=== PATIENT | male | born 1975 | race Two or more races ===

== ENCOUNTER 2024-08-31 15:47 | Emergency (ER) | payer MEDICAID, SELFPAY ==
[2024-08-31 16:21] VITALS: BP 158/91; PULSE 100; RESP 16; TEMP 37.1; O2SAT 97; BMI 30.2
--- NOTE | 2024-08-31 16:42 | PD.EDURI ---
Upper Respiratory Inf. RME/HPI General Chief Complaint: Flu Like Symptoms Stated Complaint: cough, runnynose, congestion x 2 days Time Seen by Provider: 08/31/24 15:52 Arrival date/time: 08/31/24 15:47 RME / HPI RME / HPI Narrative: 49-year-old male patient with significant history of hypertension, came in for evaluation regarding flulike symptoms since yesterday described as nasal congestion, sore throat, nausea, body aches joint pains headache fever cough severity moderate. Patient told me that he has been exposed to a lot of open customers who are coughing in front of him. Related Data Home Medications ?Medication ?Instructions ?Recorded ?Confirmed amlodipine 10 mg tablet 10 mg PO QDAY 07/08/21 11/17/21 Previous Rx's ?Medication ?Instructions ?Recorded hydrochlorothiazide 25 mg tablet 25 mg PO QAM #30 tabs 09/15/21 lisinopril 20 mg tablet 20 mg PO QDAY #30 tabs 09/15/21 potassium chloride 8 mEq 8 meq PO QDAY #30 caps 10/18/21 capsule,extended release ibuprofen 800 mg tablet 800 mg PO TID PRN pain #30 tabs 12/17/21 nirmatrelvir 300 mg (150 mg See Rx Instructions PO .COMPLEX 12/17/21 x2)-ritonavir 100 mg tablet,dose #30 tabs pack (Paxlovid) hydrocodone 5 mg-acetaminophen 325 1 tab PO Q6H PRN pain #15 tabs 08/06/23 mg tablet ibuprofen 600 mg tablet 600 mg PO Q6H PRN pain #30 tabs 08/06/23 acetaminophen 500 mg tablet 1,000 mg (2 x 500 mg) PO Q6H PRN 03/30/24 (Tylenol Extra Strength) pain #30 tabs ibuprofen 600 mg tablet 600 mg PO Q6H PRN pain #30 tabs 03/30/24 lidocaine 5 % topical patch 1 patch topical QDAY PRN pain #15 03/30/24 ea methocarbamol 500 mg tablet 1,000 mg (2 x 500 mg) PO Q8H PRN 03/30/24 muscle pain #30 tabs ibuprofen 800 mg tablet 800 mg PO Q8H PRN pain #30 tabs 08/31/24 ondansetron HCl 4 mg tablet 4 mg PO Q8H PRN nausea and 08/31/24 vomiting 5 days #20 tabs oseltamivir 75 mg capsule (Tamiflu) 75 mg PO BID 5 days #10 caps 08/31/24 Allergies Allergy/AdvReac Type Severity Reaction Status Date / Time No Known Allergies Allergy Verified 08/31/24 15:49 Review of Systems Review of Systems Narrative Review of Systems: Review of system reviewed and within normal limits except mentioned in HPI ED Exam Narrative Physical exam: VITAL SIGNS: Reviewed. GENERAL APPEARANCE: Alert and interactive, follows commands, no acute distress, HEAD AND FACE: Non-traumatic. ENT: PERRL, pink conjunctivitis, eyelid no trauma, Mucous membrane moist. NECK: Supple, nontender, no nuchal rigidity. CHEST: No tenderness, no crepitus, no paradoxical movement, no retractions. LUNGS: Clear, well ventilated, symmetric, no rales, no wheezing, no ronchi, no stridor, good breath sounds bilaterally. HEART: Regular rate, regular rhythm, no murmur, no gallops. ABDOMEN: Soft, positive bowel sounds, nondistended, no guarding, nontender, no rebound, no masses, RECTAL: Deferred. GENITAL: Deferred. NEUROLOGICAL: Gross motor function intact sensory function intact, Appropriate for age. MUSCULOSKELETAL: low back nontender, full range of motion. EXTREMITIES: Nontender, full range of motion. SKIN: Color pink, dry, no rash, no lacerations, no abrasions, no contusions. LYMPHATICS: Deferred. Course Quality Measures none Orders Category Date Time Status DiphenhydrAMINE [Benadryl] Med 08/31/24 16:41 Once 50 mg PO X1 ONE Ibuprofen Tab [Motrin Tab] Med 08/31/24 16:41 Once 800 mg PO X1 ONE Ondansetron Odt [Zofran Odt] Med 08/31/24 16:41 Once 4 mg PO X1 ONE Oseltamivir [Tamiflu] Med 08/31/24 16:41 Once 75 mg PO X1 ONE Vital Signs Vital signs: Vital Signs Temperature 98.8 F 08/31/24 16:21 Pulse Rate 100 08/31/24 16:21 Respiratory Rate 16 08/31/24 16:21 Blood Pressure 158/91 H 08/31/24 16:21 Pulse Oximetry (%) 97 08/31/24 16:21 Oxygen Delivery Method Room Air 08/31/24 16:21 Upper Respiratory Infection MDM Narrative MDM Narrative:: 49-year-old male patient with significant history of hypertension, came in for evaluation regarding flulike symptoms since yesterday described as nasal congestion, sore throat, nausea, body aches joint pains headache fever cough severity moderate. Patient told me that he has been exposed to a lot of open customers who are coughing in front of him. patient was tested positive for flu. Further imaging or test is not needed at this time. Patient was given Tamiflu, Zofran and Motrin and Benadryl Patient appears nontoxic and hemodynamically stable. Patient discharged home and instructed to follow-up with primary care provider in 24 to 48 hours. Instructed to return to the emergency department immediately if worsening of symptoms Patient data External records reviewed:: None Clinical information provided by:: patient Social determinants that could affect healthcare access:: none Patient has the following chronic illnesses:: Hypertension How is presenting disease/condition affected by chronic disease/condition?: uneffected by Evaluation data The following diagnostics were reviewed and interpreted by me:: other (specify) Lab and/or radiology exams considered but not ordered:: None Interpretation Summary: Positive for fever Medications / Prescriptions Medications or Prescriptions considered but not ordered:: None Medication administrations:: Tamiflu Motrin Zofran and Benadryl Consultations Consultation(s) initiated? (list below): No Diagnosis Upper Respiratory Differential Diagnosis: upper respiratory infection, viral infection and influenza Most likely diagnosis given after review of the tests above:: Influenza Admission Indicated Admission indicated?: not indicated Explain why admission is indicated or not indicated:: Stable Admission Request Was there a request for admission?: No Disposition Plan Disposition Plan: Discharge Discharge Attestation Discharge Attestation: The patient was given an opportunity to ask questions and understood the discharge instructions. Discharge instructions specifically effects, indications for sooner follow up or return to the emergency department, and the expected course of current diagnosis. Patient condition: Stable Discharge Plan Plan Patient Disposition: HOME (Self Care) Disposition Comment: Stable Prescriptions/Referrals Prescriptions/Med Rec: New oseltamivir [Tamiflu] 75 mg capsule 75 mg PO BID 5 Days Qty: 10 0RF ibuprofen 800 mg tablet 800 mg PO Q8H PRN (Reason: pain) Qty: 30 0RF ondansetron HCl 4 mg tablet 4 mg PO Q8H PRN (Reason: nausea and vomiting) 5 Days Qty: 20 0RF No Action hydrochlorothiazide 25 mg tablet 25 mg PO QAM Qty: 30 1RF lisinopril 20 mg tablet 20 mg PO QDAY Qty: 30 1RF Paxlovid 150 mg x 2- 100 mg tablet See Rx Instructions .ROUTE .COMPLEX Qty: 30 0RF Rx Instructions: take TWO 150 mg tablets of nirmatrelvir with ONE 100 mg tablet of ritonavir twice daily for 5 days amlodipine 10 mg tablet 10 mg PO QDAY Patient Comments: has not taken for 1 year potassium chloride 8 mEq capsule, extended release 8 meq PO QDAY Qty: 30 0RF ibuprofen 800 mg tablet 800 mg PO TID PRN (Reason: pain) Qty: 30 0RF ibuprofen 600 mg tablet 600 mg PO Q6H PRN (Reason: pain) Qty: 30 0RF hydrocodone-acetaminophen 5-325 mg tablet 1 tab PO Q6H MDD 9 PRN (Reason: pain) Qty: 15 0RF ibuprofen 600 mg tablet 600 mg PO Q6H PRN (Reason: pain) Qty: 30 0RF acetaminophen [Tylenol Extra Strength] 500 mg tablet 1,000 mg PO Q6H PRN (Reason: pain) Qty: 30 0RF lidocaine 5 % adhesive patch,medicated 1 patch topical QDAY PRN (Reason: pain) Qty: 15 0RF Rx Instructions: leave on most painful area for up to 12 hrs methocarbamol 500 mg tablet 1,000 mg PO Q8H PRN (Reason: muscle pain) Qty: 30 0RF Problem List Clinical Impression: Influenza Patient/Caregiver Discharge Instructions Discharge Activity: activity as tolerated Education Materials: The Flu (Influenza) Additional Instructions: Thank you for the opportunity for serving you today. You are stable for discharged . You are advised to: Follow-up with your PCP in 1 to 2 days Return to ED for worsening of symptoms Increase oral fluids Take medication as prescribed Print Language: Liberian Stand Alone Forms: [employer] Award Info., Patient Portal Info Letter
[2024-08-31] MEDS: IBUPROFEN TAB 400 MG TABLET 800 MG PO (17:12)
[2024-08-31] MEDS: DiphenhydrAMINE 25 MG CAPSULE 50 MG PO (17:12)
[2024-08-31] MEDS: OSELTAMIVIR 75 MG CAPSULE PO (17:21)
== END 2024-08-31 17:27 | disposition home or self-care (01) ==
PROVIDERS: Emergency Provider Emergency Medicine; PCP Family Medicine
DX: J11.1 Influenza due to unidentified influenza virus with other respiratory manifestations (principal); I10 Essential (primary) hypertension
CPT/HCPCS: 87400; 99283; Q0162; A9270

== ENCOUNTER 2024-09-08 14:58 | Emergency (ER) | payer MEDICAID, SELFPAY ==
[2024-09-08 15:01] VITALS: PULSE 92; RESP 20; O2SAT 99; BMI 30.3
[2024-09-08 15:17] VITALS: BP 184/112; BP 201/118; PULSE 102; RESP 18; TEMP 36.9; O2SAT 95
--- NOTE | 2024-09-08 15:36 | EDNOTE_ITS ---
<Statement entered by Janelle Reyes MD - 09/09/24 17:54> As co-signing physician, I was present and available for consult prn. I concur with the plan and care as documented by the midlevel provider. ED General RME/HPI General Chief complaint: Dizziness Stated complaint: DIZZY, NAUSEA, INTOXICATED Time Seen by Provider: 09/08/24 15:29 Arrival date/time: 09/08/24 14:58 CC: Dizziness and noncompliant with his high blood pressure medicines HPI patient is an alcoholic admits to her last drink was approximately 1 hour ago. Is completely disheveled ill kempt 30, patient states he is here for his nausea however when reminded that he is here for his dizziness he says oh yes , patie nt states he is also was trouble ambulating but was observed ambulating without any complication to it from the room. Patient when asked if he wants to have his alcoholism fixed and he said no I just want my dizziness to go away. Patient looks the dizziness has been ongoing for a long time. Patient admits that he drinks hard alcohol no beer. Related Data Home Medications ?Medication ?Instructions ?Recorded ?Confirmed amlodipine 10 mg tablet 10 mg PO QDAY 07/08/2111/17 Previous Rx's ?Medication ?Instructions ?Recorded hydrochlorothiazide 25 mg tablet 25 mg PO QAM #30 tabs 09/15/21 lisinopril 20 mg tablet 20 mg PO QDAY #30 tabs 09/15 potassium chloride 8 mEq 8 meq PO QDAY #30 caps 10/18 capsule,extended release ibuprofen 800 mg tablet 800 mg PO TID PRN pain #30 t abs 12/17/21 nirmatrelvir 300 mg (150 mg See Rx Instructions PO .CO MPLEX 12/17/21 x2)-ritonavir 100 mg tablet,dose #30 tabs pack (Paxlovid) hydrocodone 5 mg-acetaminophen 325 1 tab PO Q6H PRN pa in #15 tabs 08/06/23 mg tablet ibuprofen 600 mg tablet 600 mg PO Q6H PRN pain #30 t abs 08/06/23 acetaminophen 500 mg tablet 1,000 mg (2 x 500 mg) PO Q 6H PRN 03/30/24 (Tylenol Extra Strength) pain #30 tabs ibuprofen 600 mg tablet 600 mg PO Q6H PRN pain #30 t abs 03/30/24 lidocaine 5 % topical patch 1 patch topical QDAY PRN p ain #15 03/30/24 ea methocarbamol 500 mg tablet 1,000 mg (2 x 500 mg) PO Q 8H PRN 03/30/24 muscle pain #30 tabs ibuprofen 800 mg tablet 800 mg PO Q8H PRN pain #30 t abs 08/31/24 Allergies Allergy/AdvReac Type Severity Reaction Status Date / Time No Known Allergies Allergy Verified 09/08/24 15:04 Review of Systems Review of Systems Narrative Review of Systems: GEN: No fever, no chills, no weight loss EYES: No discharge, no visual changes, no pain HEENT: No ear pain, no congestion, no sore throat PULM: No shortness of breath, no cough, no congestion CV: No chest pain, no dyspnea on exertion, no palpitations GI: No nausea, no vomiting, no diarrhea, no pain, no constipation : No frequency, no urgency, no dysuria MUSC/SKEL: No joint pain, no back pain SKIN: No rash PSYCH: No hallucinations, no depression HEME/LYMPH: No easy bleeding or bruising tendencies NEURO: No weakness, no headache, + dizziness Past Medical History Past Medical History CARDIAC: Positive Hypertension; Negative Cardiac Disorders or Congestive Heart Failure RESPIRATORY: Negative Chronic Obstructive Pulmonary Disease (COPD) or Asthma GASTROINTESTINAL: Positive Gastrointestinal Disorders and Gall Bladder Disease GENITOURINARY: Negative Renal Disease MUSCULOSKELETAL: Positive Arthritis ENDOCRINE: Negative Diabetes Mellitus Type 1 or Diabetes Mellitus Type 2 HEMATOLOGIC: Negative Sickle Cell Disease OTHER HISTORY: Positive Falls; Negative Blood Transfusions, Anesthesia Reactions or Cancer Family History FAMILY HISTORY: Positive Family Cardiac Disorders and Family Cancer Social History SMOKING STATUS: Never smoker SECOND HAND EXPOSURE: Yes (sister including marijuana) SUBSTANCE USE: does not use ED Exam Narrative Physical exam: [General: Disheveled ill kempt deconditioned but not in any acute distress Head normocephalic HEENT: Within acceptable limits Neck is supple nontender Chest equal chest rise nontender to palpation Respiratory: Clear to auscultation no wheezes crackles or rubs CV: Rate rhythm is regular, tachycardic, no murmurs rubs or clicks Abdomen is soft nontender no masses positive bowel sounds all 4 quadrants Back: No CVA tenderness no spinous process tenderness from cervical spine thoracic and lumbar spine Skin: Intact no petechiae rash induration ulceration or crepitus Extremities: Moving all extremity against resistance cap refill less than 2 seconds neurosensory intact Neuro: Awake alert oriented x2, person and place, Glascow coma 15 no focal deficits] Course Quality Measures none Orders Category Date Time Status Meclizine HCl [Antivert] Med 09/08/24 15:34 Discontinued 50 mg PO X1 ONE Metoprolol Tartrate [Lopressor] Med 09/08/24 17:15 Discontinued 50 mg PO X1 ONE hydrALAZINE HCL [Apresoline] Med 09/08/24 15:34 Discontinued 25 mg PO X1 ONE Vital Signs Vital signs: Vital Signs Temperature 98.4 F 09/08/24 15:17 Pulse Rate 102 H 09/08/24 15:17 Respiratory Rate 18 09/08/24 15:17 Blood Pressure 201/118 H 09/08/24 15:17 Pulse Oximetry (%) 95 09/08/24 15:17 Oxygen Delivery Method Room Air 09/08/24 15:17 [facility] Patient data External records reviewed:: [facility] previous records Clinical information provided by:: patient Social determinants that could affect healthcare access:: alcohol use Patient has the following chronic illnesses:: -[id number]- -[id number]- -[id number]- How is presenting disease/condition affected by chronic disease/condition?: exacerbated by Evaluation data The following diagnostics were reviewed and interpreted by me:: other (specify) (None) Lab and/or radiology exams considered but not ordered:: None Interpretation Summary: I am not sure with the patient is true intention is given the conversation I had with him initial intake the patient is not interested in fixing the alcoholism or working on the alcoholism simply wants relief of the symptoms of dizziness. Patient admits that he is noncompliant with his hypertension medications. Medications Medications considered but not ordered:: None Medication administrations:: Medication Administration History Discontinued Medications Hydralazine HCl (Hydralazine Hcl 25 Mg Tablet) 25 mg PO X1 ONE Stop: 09/08/24 15:35 Last Admin: 09/08/24 15:46 Dose: 25 mg Documented By: DOM Meclizine HCl (Meclizine Hcl 25 Mg Tablet) 50 mg PO X1 ONE Stop: 09/08/24 15:35 Last Admin: 09/08/24 15:46 Dose: 50 mg Documented By: DOM Metoprolol Tartrate (Metoprolol Tartrate 25 Mg Tablet) 50 mg PO X1 ONE Stop: 09/08/24 17:16 Last Admin: 09/08/24 17:44 Dose: 50 mg Documented By: DOM None Consultations Consultation(s) initiated? (list below): No Diagnosis Differential Diagnosis ED Complaint MDM: Hypertension hypertensive urgency alcohol withdrawal Most likely diagnosis given after review of the tests above:: Hypertension secondary to medication compliance, alcohol intoxication alcoholism Admission Indicated Admission indicated?: not indicated Explain why admission is indicated or not indicated:: Stable for outpatient follow-up Admission Request Was there a request for admission?: No Disposition Plan Disposition Plan: Discharge Discharge Attestation Discharge Attestation: The patient and all family members were given an opportunity to ask questions and understood the discharge instructions. Discharge instructions specifically effects, indications for sooner follow up or return to the emergency department, and the expected course of current diagnosis. Patient condition: Stable Medical Decision Making Differential Diagnosis Differential Diagnosis: Hypertension hypertensive urgency alcohol withdrawal Discharge Plan Plan Patient Disposition: HOME (Self Care) Patient condition on transfer: Stable Prescriptions/Referrals Prescriptions/Med Rec: No Action hydrochlorothiazide 25 mg tablet 25 mg PO QAM Qty: 30 1RF lisinopril 20 mg tablet 20 mg PO QDAY Qty: 30 1RF Paxlovid 150 mg x 2- 100 mg tablet See Rx Instructions .ROUTE .COMPLEX Qty: 30 0RF Rx Instructions: take TWO 150 mg tablets of nirmatrelvir with ONE 100 mg tablet of ritonavir twice daily for 5 days amlodipine 10 mg tablet 10 mg PO QDAY Patient Comments: has not taken for 1 year potassium chloride 8 mEq capsule, extended release 8 meq PO QDAY Qty: 30 0RF ibuprofen 800 mg tablet 800 mg PO TID PRN (Reason: pain) Qty: 30 0RF ibuprofen 600 mg tablet 600 mg PO Q6H PRN (Reason: pain) Qty: 30 0RF hydrocodone-acetaminophen 5-325 mg tablet 1 tab PO Q6H MDD 9 PRN (Reason: pain) Qty: 15 0RF ibuprofen 600 mg tablet 600 mg PO Q6H PRN (Reason: pain) Qty: 30 0RF acetaminophen [Tylenol Extra Strength] 500 mg tablet 1,000 mg PO Q6H PRN (Reason: pain) Qty: 30 0RF lidocaine 5 % adhesive patch,medicated 1 patch topical QDAY PRN (Reason: pain) Qty: 15 0RF Rx Instructions: leave on most painful area for up to 12 hrs methocarbamol 500 mg tablet 1,000 mg PO Q8H PRN (Reason: muscle pain) Qty: 30 0RF ibuprofen 800 mg tablet 800 mg PO Q8H PRN (Reason: pain) Qty: 30 0RF Referrals: Jacinto Diaz MD [Primary Care Provider] - In 1 week Problem List Clinical Impression: Hypertension, Dizziness Patient/Caregiver Discharge Instructions Education Materials: Controlling High Blood Pressure, Alcoholism Resources, Alcoholism: Getting Help Print Language: Ukrainian Stand Alone Forms: [employer] Award Info., Patient Portal Info Letter PA/AIR TRAFFIC SYSTEMS TECHNICIAN Supervising Physician PA/AIR TRAFFIC SYSTEMS TECHNICIAN Supervising Physician: Sylvain Quiles ENP
[2024-09-08 15:46] VITALS: BP 201/118; PULSE 102
[2024-09-08] MEDS: hydrALAZINE HCL 25 MG TABLET PO (15:46)
[2024-09-08] MEDS: MECLIZINE HCL 25 MG TABLET 50 MG PO (15:46)
[2024-09-08 17:12] VITALS: BP 192/112; BP 198/118; PULSE 100; RESP 20; TEMP 36.7; O2SAT 95
[2024-09-08 17:44] VITALS: BP 198/118; PULSE 100
[2024-09-08] MEDS: METOPROLOL TARTRATE 25 MG TABLET 50 MG PO (17:44)
== END 2024-09-08 19:22 | disposition home or self-care (01) ==
PROVIDERS: Emergency Provider Emergency Medicine; PCP Family Medicine
DX: R42 Dizziness and giddiness (principal); I10 Essential (primary) hypertension; Z91.148 Patient's other noncompliance with medication regimen for other reason
CPT/HCPCS: 99282; A9270

== ENCOUNTER 2024-09-08 20:15 | Emergency (ER) | payer MEDICAID, SELFPAY ==
[2024-09-08 20:16] VITALS: BMI 30.3
--- NOTE | 2024-09-08 20:33 | PD.EDRME ---
Rapid Medical Screening Exam RME Arrival date/time: 09/08/24 20:15 Chief Complaint: Flu Like Symptoms Time Seen by Provider: 09/08/24 20:22 Vital signs reviewed by provider: Yes RME Narrative: 49-year-old male with history of alcohol use who recently was treated with influenza with on August 31, 2024, and was seen earlier today for possible dizziness presenting to the emergency department today for dizziness. Dr. Murray: 49-year-old male history of heavy drinking presents to the emergency department with feeling bad since being treated on August 31 for influenza. The patient states that he has had bodyaches over the last few days. Today he is feeling dizzy and was seen earlier today however he is returning because he is feeling worse. Positive nausea, no vomiting, mild tremor. Patient denies seizure. No fever, diarrhea, or chest pain or shortness of breath.
[2024-09-08 20:41] VITALS: BP 181/109; BP 185/118; PULSE 78; RESP 20; TEMP 36.7; O2SAT 95
--- NOTE | 2024-09-08 21:44 | EDNOTE_ITS ---
Upper Respiratory Inf. RME/HPI General Chief Complaint: Flu Like Symptoms Stated Complaint: cough Time Seen by Provider: 09/08/24 20:22 Source: patient Arrival date/time: 09/08/24 20:15 Mode of arrival: ambulatory Limitations: no limitations RME / HPI RME / HPI Narrative: 49-year-old male with history of alcohol use who recently was treated with influenza with on August 31, 2024, and was seen earlier today for possible dizziness presenting to the emergency department today for dizziness. Dr. Myles?s Main ED Evaluation: 49-year-old male with a history of heavy alcohol use presents with worsening symptoms following recent treatment for influenza on August 31. Over the past few days, he reports persistent body aches and today developed dizziness, prompting a return visit after being seen earlier. He endorses nausea without vomiting and notes a mild tremor. Denies seizures, fever, diarrhea, chest pain, or shortness of breath. Related Data Home Medications ?Medication ?Instructions ?Recorded ?Confirmed amlodipine 10 mg tablet 10 mg PO QDAY 07/08/2111/17 Previous Rx's ?Medication ?Instructions ?Recorded hydrochlorothiazide 25 mg tablet 25 mg PO QAM #30 tabs 09/15/21 lisinopril 20 mg tablet 20 mg PO QDAY #30 tabs 09/15 potassium chloride 8 mEq 8 meq PO QDAY #30 caps 10/18 capsule,extended release ibuprofen 800 mg tablet 800 mg PO TID PRN pain #30 t abs 12/17/21 nirmatrelvir 300 mg (150 mg See Rx Instructions PO .CO MPLEX 12/17/21 x2)-ritonavir 100 mg tablet,dose #30 tabs pack (Paxlovid) hydrocodone 5 mg-acetaminophen 325 1 tab PO Q6H PRN pa in #15 tabs 08/06/23 mg tablet ibuprofen 600 mg tablet 600 mg PO Q6H PRN pain #30 t abs 08/06/23 acetaminophen 500 mg tablet 1,000 mg (2 x 500 mg) PO Q 6H PRN 03/30/24 (Tylenol Extra Strength) pain #30 tabs ibuprofen 600 mg tablet 600 mg PO Q6H PRN pain #30 t abs 03/30/24 lidocaine 5 % topical patch 1 patch topical QDAY PRN p ain #15 03/30/24 ea methocarbamol 500 mg tablet 1,000 mg (2 x 500 mg) PO Q 8H PRN 03/30/24 muscle pain #30 tabs ibuprofen 800 mg tablet 800 mg PO Q8H PRN pain #30 t abs 08/31/24 Allergies Allergy/AdvReac Type Severity Reaction Status Date / Time No Known Allergies Allergy Verified 09/19/24 21:27 Review of Systems Review of Systems Systems Reviewed: All systems reviewed, normal except as documented Past Medical History Past Medical History CARDIAC: Positive Hypertension; Negative Cardiac Disorders or Congestive Heart Failure RESPIRATORY: Negative Chronic Obstructive Pulmonary Disease (COPD) or Asthma GASTROINTESTINAL: Positive Gastrointestinal Disorders and Gall Bladder Disease GENITOURINARY: Negative Renal Disease MUSCULOSKELETAL: Positive Arthritis ENDOCRINE: Negative Diabetes Mellitus Type 1 or Diabetes Mellitus Type 2 HEMATOLOGIC: Negative Sickle Cell Disease OTHER HISTORY: Positive Falls; Negative Blood Transfusions, Anesthesia Reactions or Cancer Family History FAMILY HISTORY: Positive Family Cardiac Disorders and Family Cancer Social History SMOKING STATUS: Never smoker SECOND HAND EXPOSURE: Yes (sister including marijuana) SUBSTANCE USE: does not use ED Exam General Limitations: Present no limitations General appearance: Present alert and in no apparent distress Head Head exam: Present atraumatic Eye Eye exam: Present normal appearance, PERRL and EOMI ENT ENT exam: Present normal exam, normal oropharynx and mucous membranes moist Neck Neck exam: Present normal inspection, full ROM and trachea midline Chest Chest inspection: Present normal inspection and symmetric chest wall rise Respiratory Respiratory exam: Present normal lung sounds bilaterally Cardiovascular Cardiovascular exam: Present regular rate, normal rhythm and normal heart sounds Abdominal Exam Abdominal exam: Present soft and normal bowel sounds Extremities Exam Extremities exam: Present normal inspection and full ROM Back Exam Back exam: Present normal inspection and full ROM Neurological Exam Neurological exam: Present alert, oriented X3 and CN II-XII intact Psychiatric Psychiatric exam: Present normal affect and normal mood Skin Skin exam: Present warm, dry, intact and normal color Course Quality Measures none Orders Category Date Time Status EKG (ED ONLY) *Do not use* NOW Care 09/09/24 01:49 Completed Insert IV NOW Care 09/09/24 00:22 Completed EKG (ED Only) Stat Exams 09/09/24 01:49 Draft CBC Stat Lab 09/09/24 00:25 Completed CMP [Comprehensive Metabolic Panel] Stat Lab 09/09/24 00:25 Completed Drug Screen,Urine Stat Lab 09/09/24 02:03 Completed Troponin I Stat Lab 09/09/24 00:25 Completed Urinalysis Stat Lab 09/09/24 02:03 Completed Lisinopril [Prinivil] Med 09/09/24 00:20 Discontinued 20 mg PO X1 ONE Metoclopramide Inj [Reglan Inj] Med 09/09/24 03:26 Discontinued 10 mg IVP X1 ONE Ondansetron Inj [Zofran Inj] Med 09/09/24 01:59 Discontinued 4 mg IV X1 ONE Sodium Chloride 0.9% 1000 ml [Ns] 1,000 ml Med 09/09/24 00:05 Discontinued IV 999 mls/hr amLODIPine BESYLATE [Norvasc] Med 09/09/24 00:20 Discontinued 10 mg PO X1 ONE hydrALAZINE INJ [Apresoline Inj] Med 09/09/24 00:20 Discontinued 20 mg IV X1 ONE Vital Signs Vital signs: Vital Signs Temperature 98.1 F 09/08/24 20:41 Pulse Rate 78 09/08/24 20:41 Respiratory Rate 20 09/08/24 20:41 Blood Pressure 185/118 H 09/08/24 20:41 Pulse Oximetry (%) 95 09/08/24 20:41 Oxygen Delivery Method Room Air 09/08/24 20:41 Upper Respiratory Infection MDM Narrative MDM Narrative:: 49-year-old male with history of hypertension is likely noncompliant with his meds, history of alcohol use coming in with dizziness. Patient was treated with influenza 3 to 5 days ago and is improved with no symptoms. No fevers. No weakness or numbness. Patient able to ambulate from the waiting room to room 19 without abnormal gait. Blood pressure 183/112. Heart rate 84. Will rule out for hypertensive urgency versus emergency versus alcohol withdrawal versus dehydration or electrolyte abnormality. CIWA 1. Scribe Attestation: I, Lester Chang, am scribing for and in the presence of Dr. Myles. Provider Notation: Although this document has been carefully reviewed, there may still be some phonetic and other typographical errors. These errors are purely grammatical due to imperfections in the software program and should not be construed in any way to compromise the substance of the patient's medical care during this visit. 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 Social determinants that could affect healthcare access:: none Patient has the following chronic illnesses:: see PMH How is presenting disease/condition affected by chronic disease/condition?: uneffected by Evaluation data The following diagnostics were reviewed and interpreted by me:: lab results Lab and/or radiology exams considered but not ordered:: n/a Interpretation Summary: see [facility] Medications / Prescriptions Medications or Prescriptions considered but not ordered:: n/a Medication administrations:: Medication Administration History Discontinued Medications Amlodipine Besylate (Amlodipine Besylate 5 Mg Tablet) 10 mg PO X1 ONE Stop: 09/09/24 00:21 Last Admin: 09/09/24 00:29 Dose: 10 mg Documented By: CVL Hydralazine HCl (Hydralazine Inj 20 Mg/Ml Vial) 20 mg IV X1 ONE Stop: 09/09/24 00:21 Last Admin: 09/09/24 00:32 Dose: 20 mg Documented By: CVL Sodium Chloride (Ns) 1,000 mls @ 999 mls/hr IV .Q1H1M ONE Stop: 09/09/24 01:05 Last Infusion: 09/09/24 01:49 Dose: Infused Documented By: Admin: 09/09/24 00:24 Dose: 999 mls/hr Documented By: CVL Lisinopril (Lisinopril 20 Mg Tablet) 20 mg PO X1 ONE Stop: 09/09/24 00:21 Last Admin: 09/09/24 00:28 Dose: 20 mg Documented By: CVL Metoclopramide HCl (Metoclopramide Inj 5 Mg/Ml Vial 2 Ml) 10 mg IVP X1 ONE; Protocol Stop: 09/09/24 03:27 Last Admin: 09/09/24 03:35 Dose: 10 mg Documented By: CVL Ondansetron HCl (Ondansetron Inj 2 Mg/Ml Inj 2 Ml) 4 mg IV X1 ONE; Protocol Stop: 09/09/24 02:00 Last Admin: 09/09/24 02:07 Dose: 4 mg Documented By: CVL as above, if any Consultations Consultation(s) initiated? (list below): No Diagnosis Upper Respiratory Differential Diagnosis: other Most likely diagnosis given after review of the tests above:: see clinical impression below Admission Indicated Admission indicated?: not indicated Admission Request Was there a request for admission?: No Disposition Plan Disposition Plan: Discharge Discharge Attestation Discharge Attestation: The patient and all family members were given an opportunity to ask questions and understood the discharge instructions. Discharge instructions specifically effects, indications for sooner follow up or return to the emergency department, and the expected course of current diagnosis. Patient condition: Stable Discharge Plan Plan Patient Disposition: HOME (Self Care) Patient condition on transfer: Stable Prescriptions/Referrals Prescriptions/Med Rec: No Action hydrochlorothiazide 25 mg tablet 25 mg PO QAM Qty: 30 1RF lisinopril 20 mg tablet 20 mg PO QDAY Qty: 30 1RF Paxlovid 150 mg x 2- 100 mg tablet See Rx Instructions .ROUTE .COMPLEX Qty: 30 0RF Rx Instructions: take TWO 150 mg tablets of nirmatrelvir with ONE 100 mg tablet of ritonavir twice daily for 5 days amlodipine 10 mg tablet 10 mg PO QDAY Patient Comments: has not taken for 1 year potassium chloride 8 mEq capsule, extended release 8 meq PO QDAY Qty: 30 0RF ibuprofen 800 mg tablet 800 mg PO TID PRN (Reason: pain) Qty: 30 0RF ibuprofen 600 mg tablet 600 mg PO Q6H PRN (Reason: pain) Qty: 30 0RF hydrocodone-acetaminophen 5-325 mg tablet 1 tab PO Q6H MDD 9 PRN (Reason: pain) Qty: 15 0RF ibuprofen 600 mg tablet 600 mg PO Q6H PRN (Reason: pain) Qty: 30 0RF acetaminophen [Tylenol Extra Strength] 500 mg tablet 1,000 mg PO Q6H PRN (Reason: pain) Qty: 30 0RF lidocaine 5 % adhesive patch,medicated 1 patch topical QDAY PRN (Reason: pain) Qty: 15 0RF Rx Instructions: leave on most painful area for up to 12 hrs methocarbamol 500 mg tablet 1,000 mg PO Q8H PRN (Reason: muscle pain) Qty: 30 0RF ibuprofen 800 mg tablet 800 mg PO Q8H PRN (Reason: pain) Qty: 30 0RF Referrals: Jacinto Diaz MD [Primary Care Provider] - In 1 week Problem List Clinical Impression: Acute dehydration, Elevated blood pressure reading Patient/Caregiver Discharge Instructions Education Materials: ED Dehydration (Adult) Additional Instructions: Please take your medications as prescribed. Please take your blood pressure medication as prescribed by your doctor. Return to emergency department for any worsening symptoms, headache, you pass out, or any other concerns. Print Language: Palestinian Stand Alone Forms: Mayuri Award Info., Patient Portal Info Letter
[2024-09-08 22:03] VITALS: BP 177/111; PULSE 79; RESP 20; TEMP 36.7; O2SAT 97
[2024-09-08 22:48] VITALS: BP 171/106; PULSE 82; RESP 20; TEMP 36.7; O2SAT 97
[2024-09-08 23:25] VITALS: BP 172/109; PULSE 84; RESP 18; O2SAT 95
[2024-09-09] VITALS (7 sets, daily range): BP systolic 161–188; BP diastolic 94–112; PULSE 81–95; RESP 16–20; TEMP 37.1; O2SAT 97–99
[2024-09-09] MEDS: SODIUM CHLORIDE 0.9% 1000 ML 1,000 ML 999 ML IV (00:24)
[2024-09-09] MEDS: Lisinopril 20 MG TABLET PO (00:28)
[2024-09-09] MEDS: amLODIPine BESYLATE 5 MG TABLET 10 MG PO (00:29)
[2024-09-09 00:31] LABS: Basophils % (Auto) 0 % (0-2.5); Eosinophils # (Auto) 0.1 Thou/mm3 (0.0-0.5); Eosinophils % (Auto) 2 % (0-10); Hematocrit 34.3 % (41.0-53.0); Immature Granulocytes % (Auto) 0 % (0-0); Immature Granulocytes Auto 0.02 Thou/mm3 (0.00-0.00); Lymphocytes # (Auto) 0.7 Thou/mm3 (1.0-4.8); Lymphocytes % (Auto) 11 % (10-50); Mean Corpuscular HGB Conc 32.1 g/dl (31.0-37.0); Mean Corpuscular Volume 84 fL (80-100); Monocytes # (Auto) 0.4 Thou/mm3 (0.0-0.8); Monocytes % (Auto) 6 % (0-12); Neutrophils % (Auto) 81 % (37-80); Nucleated Red Blood Cell % 0 /100 WBC (0); RDW Standard Deviation 44.2 fL (35.1-43.9); Red Blood Count 4.08 Miln/mm3 (4.50-5.90); White Blood Count 6.1 Thou/mm3 (3.8-10.6)
[2024-09-09] MEDS: hydrALAZINE INJ 20 MG/ML VIAL IV (00:32)
[2024-09-09 00:33] LABS: Platelet Count 71 Thou/mm3 (140-440)
[2024-09-09 00:51] LABS: Slide Review Platelets confirmed
[2024-09-09 00:52] LABS: Alanine Aminotransferase 137 U/L (10-49); Albumin, Serum 3.9 gm/dL (3.5-5.0); Albumin/Globulin Ratio 1.2 (1.2-2.2); Alkaline Phosphatase 310 U/L (46-116); Anion Gap 11 (7-16); Aspartate Amino Transferase 275 U/L (0-34); BUN/Creatinine Ratio 13 Ratio (12-20); Bilirubin,Total 0.9 mg/dL (0.3-1.2); Blood Urea Nitrogen 9 mg/dL (9-23); Calcium 8.3 mg/dL (8.3-10.6); Calcium (Corrected) 8.4 mg/dL (8.5-10.1); Carbon Dioxide 25.3 mMol/L (20.0-31.0); Chloride 106 mMol/L (98-107); Creatinine (Component) 0.7 mg/dL (0.6-1.3); Estimated Creatinine Clearance 158.3 mL/min (>60); Globulin 3.2 gm/dL (2.3-3.5); Glucose 85 mg/dL (74-106); Osmolality,Calculated 280 (275-295); Potassium 3.7 mMol/L (3.4-5.1); Sodium 142 mMol/L (136-145); Total Protein 7.1 gm/dL (5.7-8.2); eGFR > 60 See Note
--- NOTE | 2024-09-09 01:49 | EKG_ITS ---
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
[2024-09-09] MEDS: ONDANSETRON INJ 2 MG/ML INJ 2 ML 4 MG IV (02:07)
[2024-09-09 02:09] LABS: Troponin I < 0.020 ng/mL (0.0-0.045)
[2024-09-09 02:15] LABS: Collection Type, Urine Voided; Squamous Epithelial Cell,Urine 0 /hpf (0-5)
[2024-09-09 02:19] LABS: Bilirubin,Urine Negative (Negative); Blood,Urine Negative (Negative); Clarity,Urine Turbid (Clear/Hazy); Color,Urine Lt-Yellow (Lt Yel-Yel); Glucose, Urine Negative (Negative); Ketones,Urine Trace (Negative); Leukocyte Esterase,Urine Negative (Negative); Nitrite,Urine Negative (Negative); PH,Urine 7.5 (5.0-7.0); Protein,Urine Trace (Neg - Trace); RBC,Urine 3 /hpf (0-3); Specific Gravity,Urine 1.014 (1.001-1.035); Urobilinogen,Urine Negative mg/dL (0.0-1.0); WBC,Urine 1 /hpf (0-5)
[2024-09-09 02:29] LABS: Amphetamine/Methamp Scrn,U Positive (Negative); Barbiturate Screen,Urine Negative (Negative); Benzodiazepines Screen,Urine Negative (Negative); Benzoylecgonine Screen, Ur Negative (Negative); Fentanyl Screen,Urine Negative (Negative); Opiate Screen,Urine Negative (Negative); THC Screen,Urine Negative (Negative)
[2024-09-09] MEDS: METOCLOPRAMIDE INJ 5 MG/ML VIAL 2 ML 10 MG IVP (03:35)
== END 2024-09-09 05:42 | disposition home or self-care (01) ==
PROVIDERS: Emergency Provider Emergency Medicine; PCP Family Medicine
DX: E86.0 Dehydration (principal); I10 Essential (primary) hypertension; R42 Dizziness and giddiness
CPT/HCPCS: 36415; 80053; 80307; 81001; 84484; 85025; 96361; 96374; 96375; 99284; J0360; J2405; J2765; J7030; A9270

== ENCOUNTER 2024-09-15 21:39 | Emergency (ER) | payer MEDICAID, SELFPAY ==
[2024-09-15] VITALS (7 sets, daily range): BP systolic 141–187; BP diastolic 81–110; PULSE 85–105; RESP 17–20; TEMP 37.1; O2SAT 95–97; BMI 30.3
--- NOTE | 2024-09-15 21:54 | EDNOTE_ITS ---
ED Alcohol RME/HPI General Chief Complaint: Alcohol Stated Complaint: ALCOHOL WITHDRAWALS Time Seen by Provider: 09/15/24 21:53 Arrival date/time: 09/15/24 21:39 RME / HPI RME / HPI narrative: This section includes all my notes and documentations, including HPI, PE, and ED course. Sagar Garcia MD HPI: 49-year-old male here to be evaluated with possible alcohol intoxication. He called EMS from the streets. He wanted help with nausea and generalized fatigue and malaise and generally not feeling well. No head injury. No headache. No syncope or near syncope. No obvious seizure. No speech or visual impairment. No neck pain or back pain. No chest pain or abdominal pain. No pain in the arms or legs. No other complaints. ROS: All negative except as documented in HPI. Physical Exam: General: Alert and oriented. Appears intoxicated. High BP noted. Eyes: Conjunctivae and lids clear. EOMI. PERRL. ENT: No signs of trauma. Neck: Supple. No tenderness. Heart: RRR. Lungs: No respiratory distress. Good air movement. No rhonchi, wheezing, rales. Chest: No tenderness. Abdomen: Soft and nontender. Normal bowel sounds. No distension. No rebound or guarding. Back: No tenderness. Legs: No clubbing, cyanosis, edema. Skin: Warm and dry. Neuro: Alert and oriented X 3. Cranial Nerves II-XII grossly intact. No peripheral motor deficits. Musculoskeletal: All major joints and bones are not tender with no limited ROM. I reviewed all diagnostic test results. My interpretation of the chest x-ray is no acute findings. Blood tests and urine tests remarkable for K 3.1, elevated LFT, serum alcohol at 188.5, and UDS positive for methamphetamine. At this point, diagnoses include alcohol intoxication, hypokalemia, elevated LFT, methamphetamine use. Treatment here included IV fluid, Zofran, metoprolol, clonidine, Ativan, and KCl. When I went to recheck the patient, I was told he eloped. Sagar Garcia MD Related Data Home Medications ?Medication ?Instructions ?Recorded ?Confirmed amlodipine 10 mg tablet 10 mg PO QDAY 07/08/2111/17 Previous Rx's ?Medication ?Instructions ?Recorded hydrochlorothiazide 25 mg tablet 25 mg PO QAM #30 tabs 09/15/21 lisinopril 20 mg tablet 20 mg PO QDAY #30 tabs 09/15 potassium chloride 8 mEq 8 meq PO QDAY #30 caps 10/18 capsule,extended release ibuprofen 800 mg tablet 800 mg PO TID PRN pain #30 t abs 12/17/21 nirmatrelvir 300 mg (150 mg See Rx Instructions PO .CO MPLEX 12/17/21 x2)-ritonavir 100 mg tablet,dose #30 tabs pack (Paxlovid) hydrocodone 5 mg-acetaminophen 325 1 tab PO Q6H PRN pa in #15 tabs 08/06/23 mg tablet ibuprofen 600 mg tablet 600 mg PO Q6H PRN pain #30 t abs 08/06/23 acetaminophen 500 mg tablet 1,000 mg (2 x 500 mg) PO Q 6H PRN 03/30/24 (Tylenol Extra Strength) pain #30 tabs ibuprofen 600 mg tablet 600 mg PO Q6H PRN pain #30 t abs 03/30/24 lidocaine 5 % topical patch 1 patch topical QDAY PRN p ain #15 03/30/24 ea methocarbamol 500 mg tablet 1,000 mg (2 x 500 mg) PO Q 8H PRN 03/30/24 muscle pain #30 tabs ibuprofen 800 mg tablet 800 mg PO Q8H PRN pain #30 t abs 08/31/24 Allergies Allergy/AdvReac Type Severity Reaction Status Date / Time No Known Allergies Allergy Verified 09/08/24 15:04 Course Quality Measures none Orders Category Date Time Status Saline [Insert IV] NOW Care 09/15/24 21:54 Completed XR chest 1V portable Stat Exams 09/15/24 21:56 Completed Acetaminophen Stat Lab 09/15/24 22:12 Completed Alcohol, Blood Medical Stat Lab 09/15/24 22:12 Completed Amylase Stat Lab 09/15/24 22:12 Completed Bilirubin,Direct Stat Lab 09/15/24 22:12 Completed CBC Stat Lab 09/15/24 22:12 Completed CMP [Comprehensive Metabolic Panel] Stat Lab 09/15/24 22:12 Completed Drug Screen,Urine Stat Lab 09/15/24 23:11 Completed Lipase Stat Lab 09/15/24 22:12 Completed Magnesium Stat Lab 09/15/24 22:12 Completed Salicylate Stat Lab 09/15/24 22:12 Completed TSH [Thyroid Stimulating Hormone] Stat Lab 09/15/24 22:12 Completed KCL 10% Liq UDC 15 ML Med 09/15/24 23:12 Discontinued 40 meq PO X1 ONE LORazepam [Ativan Inj] Med 09/15/24 21:54 Discontinued 2 mg IVP X1 ONE Metoprolol Tartrate [Lopressor] Med 09/15/24 21:54 Discontinued 100 mg PO X1 ONE Metoprolol Tartrate [Lopressor] Med 09/15/24 22:26 Discontinued 50 mg PO X1 ONE Ondansetron Inj [Zofran Inj] Med 09/15/24 21:54 Discontinued 4 mg IV X1 ONE Sodium Chloride 0.9% 1000 ml [Ns] 1,000 ml Med 09/15/24 21:54 Discontinued IV 999 mls/hr Sodium Chloride 0.9% 1000 ml [Ns] 1,000 ml Med 09/15/24 21:55 Discontinued IV 999 mls/hr cloNIDine HCL [Catapres] Med 09/15/24 22:26 Discontinued 0.1 mg PO X1 ONE cloNIDine HCL [Catapres] Med 09/15/24 21:54 Discontinued 0.2 mg PO X1 ONE Vital Signs Vital signs: Vital Signs Temperature 98.8 F 09/15/24 21:51 Pulse Rate 102 H 09/15/24 21:51 Respiratory Rate 19 09/15/24 21:51 Blood Pressure 187/110 H 09/15/24 21:51 Pulse Oximetry (%) 97 09/15/24 21:51 Oxygen Delivery Method Room Air 09/15/24 21:51 Discharge Plan Plan Patient Disposition: Elopement Prescriptions/Referrals Prescriptions/Med Rec: No Action hydrochlorothiazide 25 mg tablet 25 mg PO QAM Qty: 30 1RF lisinopril 20 mg tablet 20 mg PO QDAY Qty: 30 1RF Paxlovid 150 mg x 2- 100 mg tablet See Rx Instructions .ROUTE .COMPLEX Qty: 30 0RF Rx Instructions: take TWO 150 mg tablets of nirmatrelvir with ONE 100 mg tablet of ritonavir twice daily for 5 days amlodipine 10 mg tablet 10 mg PO QDAY Patient Comments: has not taken for 1 year potassium chloride 8 mEq capsule, extended release 8 meq PO QDAY Qty: 30 0RF ibuprofen 800 mg tablet 800 mg PO TID PRN (Reason: pain) Qty: 30 0RF ibuprofen 600 mg tablet 600 mg PO Q6H PRN (Reason: pain) Qty: 30 0RF hydrocodone-acetaminophen 5-325 mg tablet 1 tab PO Q6H MDD 9 PRN (Reason: pain) Qty: 15 0RF ibuprofen 600 mg tablet 600 mg PO Q6H PRN (Reason: pain) Qty: 30 0RF acetaminophen [Tylenol Extra Strength] 500 mg tablet 1,000 mg PO Q6H PRN (Reason: pain) Qty: 30 0RF lidocaine 5 % adhesive patch,medicated 1 patch topical QDAY PRN (Reason: pain) Qty: 15 0RF Rx Instructions: leave on most painful area for up to 12 hrs methocarbamol 500 mg tablet 1,000 mg PO Q8H PRN (Reason: muscle pain) Qty: 30 0RF ibuprofen 800 mg tablet 800 mg PO Q8H PRN (Reason: pain) Qty: 30 0RF Referrals: No Primary/Family,Physician [Primary Care Provider] - In 1 week Problem List Clinical Impression: Alcohol intoxication Patient/Caregiver Discharge Instructions Print Language: Khmer Alcohol Patient data External records reviewed:: [facility] previous records Clinical information provided by:: patient and EMS Social determinants that could affect healthcare access:: alcohol use Patient has the following chronic illnesses:: Alcohol use and substance abuse How is presenting disease/condition affected by chronic disease/condition?: exacerbated by Evaluation data The following diagnostics were reviewed and interpreted by me:: lab results and radiology exam(s) Lab and/or radiology exams considered but not ordered:: None Interpretation Summary: Alcohol tox occasion, hypokalemia, UDS positive for methamphetamine Medications / Prescriptions Medications or Prescriptions considered but not ordered:: None Medication administrations:: Medication Administration History Discontinued Medications Clonidine (Clonidine Hcl 0.1 Mg Tablet) 0.2 mg PO X1 ONE Stop: 09/15/24 21:55 Last Admin: 09/15/24 22:29 Dose: Not Given Documented By: NETTE Non-Admin Reason: Discontinued Clonidine (Clonidine Hcl 0.1 Mg Tablet) 0.1 mg PO X1 ONE Stop: 09/15/24 22:27 Last Admin: 09/15/24 22:33 Dose: 0.1 mg Documented By: NETTE Sodium Chloride (Ns) 1,000 mls @ 999 mls/hr IV .Q1H1M ONE Stop: 09/15/24 22:54 Last Infusion: 09/16/24 00:28 Dose: Infused Documented By: Admin: 09/15/24 22:23 Dose: 999 mls/hr Documented By: NETTE Sodium Chloride (Ns) 1,000 mls @ 999 mls/hr IV .Q1H1M ONE Stop: 09/15/24 22:55 Last Infusion: 09/16/24 00:28 Dose: Infused Documented By: Admin: 09/15/24 22:23 Dose: 999 mls/hr Documented By: NETTE Lorazepam (Lorazepam 2 Mg/Ml Vial) 2 mg IVP X1 ONE Stop: 09/15/24 21:55 Last Admin: 09/15/24 22:23 Dose: 2 mg Documented By: NETTE Metoprolol Tartrate (Metoprolol Tartrate 25 Mg Tablet) 100 mg PO X1 ONE Stop: 09/15/24 21:55 Last Admin: 09/15/24 22:29 Dose: Not Given Documented By: NETTE Non-Admin Reason: Discontinued Metoprolol Tartrate (Metoprolol Tartrate 25 Mg Tablet) 50 mg PO X1 ONE Stop: 09/15/24 22:27 Last Admin: 09/15/24 22:34 Dose: 50 mg Documented By: NETTE Ondansetron HCl (Ondansetron Inj 2 Mg/Ml Inj 2 Ml) 4 mg IV X1 ONE; Protocol Stop: 09/15/24 21:55 Last Admin: 09/15/24 22:23 Dose: 4 mg Documented By: NETTE Potassium Chloride (Potassium Chloride 10% 20 Meq/15 Ml Udc) 40 meq PO X1 ONE Stop: 09/15/24 23:13 Last Admin: 09/16/24 00:24 Dose: 40 meq Documented By: AM IV fluid, KCl, Zofran, metoprolol, clonidine, Ativan Consultations Consultation(s) initiated? (list below): No Diagnosis Differential diagnosis alcohol: alcohol withdrawal delirium, hypomagnesemia, alcohol intoxication, alcohol ketoacidosis, alcohol withdrawal syndrome and alcohol withdrawal seizure Most likely diagnosis given after review of the tests above:: Medical intoxication, hypokalemia, UDS positive for methamphetamine Admission Indicated Admission indicated?: not indicated Explain why admission is indicated or not indicated:: Patient eloped Admission Request Was there a request for admission?: No Disposition Plan Disposition Plan: other (specify) (Patient eloped)
--- NOTE | 2024-09-15 21:56 | XR_ITS ---
Examination: AP chest single view TECHNIQUE: AP portable upright chest single view Exam date and time: September 15, 2024 at 2210 hours INDICATIONS: Shortness of breath today. FINDINGS: No significant cardiac enlargement No pneumonia or pulmonary edema. The osseous structures are intact IMPRESSION: No active disease
[2024-09-15 22:23] LABS: Basophils # (Auto) 0.1 Thou/mm3 (0.0-0.2); Basophils % (Auto) 1 % (0-2.5); Eosinophils # (Auto) 0.1 Thou/mm3 (0.0-0.5); Eosinophils % (Auto) 1 % (0-10); Hematocrit 41.4 % (41.0-53.0); Hemoglobin 13.5 g/dL (13.5-16.0); Immature Granulocytes % (Auto) 1 % (0-0); Immature Granulocytes Auto 0.06 Thou/mm3 (0.00-0.00); Lymphocytes # (Auto) 1.3 Thou/mm3 (1.0-4.8); Lymphocytes % (Auto) 11 % (10-50); Mean Corpuscular HGB Conc 32.6 g/dl (31.0-37.0); Mean Corpuscular Hemoglobin 27.1 pg (25.0-35.0); Mean Corpuscular Volume 83 fL (80-100); Monocytes # (Auto) 0.7 Thou/mm3 (0.0-0.8); Monocytes % (Auto) 7 % (0-12); Neutrophils % (Auto) 80 % (37-80); Nucleated Red Blood Cell % 0 /100 WBC (0); Platelet Count 150 Thou/mm3 (140-440); RDW Standard Deviation 45.1 fL (35.1-43.9); Red Blood Count 4.98 Miln/mm3 (4.50-5.90); White Blood Count 11.3 Thou/mm3 (3.8-10.6)
[2024-09-15] MEDS: ONDANSETRON INJ 2 MG/ML INJ 2 ML 4 MG IV (22:23)
[2024-09-15] MEDS: LORazepam 2 MG/ML VIAL IVP (22:23)
[2024-09-15] MEDS: SODIUM CHLORIDE 0.9% 1000 ML 1,000 ML 999 ML IV ×2 (22:23)
[2024-09-15] MEDS: cloNIDine HCL 0.1 MG TABLET PO (22:33)
[2024-09-15] MEDS: METOPROLOL TARTRATE 25 MG TABLET 50 MG PO (22:34)
[2024-09-15 22:52] LABS: Acetaminophen < 2.0 mcg/mL (10.0-20.0); Alanine Aminotransferase 164 U/L (10-49); Albumin, Serum 4.6 gm/dL (3.5-5.0); Albumin/Globulin Ratio 1.3 (1.2-2.2); Alcohol, Blood Medical 288.5 mg/dL (0-10.0); Alkaline Phosphatase 410 U/L (46-116); Amylase 111 U/L (30-118); Anion Gap 14 (7-16); Aspartate Amino Transferase 281 U/L (0-34); BUN/Creatinine Ratio 9 Ratio (12-20); Bilirubin,Direct 0.5 mg/dL (0.0-0.3); Bilirubin,Total 0.9 mg/dL (0.3-1.2); Blood Urea Nitrogen 14 mg/dL (9-23); Calcium 9.8 mg/dL (8.3-10.6); Calcium (Corrected) 9.8 mg/dL (8.5-10.1); Carbon Dioxide 22.8 mMol/L (20.0-31.0); Chloride 105 mMol/L (98-107); Creatinine (Component) 1.6 mg/dL (0.6-1.3); Estimated Creatinine Clearance 69.3 mL/min (>60); Globulin 3.6 gm/dL (2.3-3.5); Glucose 129 mg/dL (74-106); Lipase 69 U/L (12-53); Magnesium 2.2 mg/dL (1.6-2.6); Osmolality,Calculated 285 (275-295); Potassium 3.1 mMol/L (3.4-5.1); Salicylate < 3.0 mg/dL; Sodium 142 mMol/L (136-145); Thyroid Stimulating Hormone 3.48 uIU/mL (0.55-4.78); Total Protein 8.2 gm/dL (5.7-8.2); eGFR 52 See Note
[2024-09-16 00:08] LABS: Amphetamine/Methamp Scrn,U Positive (Negative); Barbiturate Screen,Urine Negative (Negative); Benzodiazepines Screen,Urine Negative (Negative); Benzoylecgonine Screen, Ur Negative (Negative); Fentanyl Screen,Urine Negative (Negative); Opiate Screen,Urine Negative (Negative); THC Screen,Urine Negative (Negative)
[2024-09-16] MEDS: POTASSIUM CHLORIDE 10% 20 MEQ/15 ML UDC 40 MEQ PO (00:24)
--- NOTE | 2024-09-16 01:37 | PC.NURSE ---
Patient not in room, IV and gown found on floor. Charge nurse and MD made aware.
== END 2024-09-16 01:48 | disposition left against medical advice (07) ==
PROVIDERS: Emergency Provider Emergency Medicine
DX: F10.129 Alcohol abuse with intoxication, unspecified (principal); E87.6 Hypokalemia; R06.02 Shortness of breath; F15.90 Other stimulant use, unspecified, uncomplicated; R74.8 Abnormal levels of other serum enzymes; Y90.8 Blood alcohol level of 240 mg/100 ml or more; Z53.29 Procedure and treatment not carried out because of patient's decision for other reasons
CPT/HCPCS: 36415; 71045; 80053; 80307; 80320; 80329; 82150; 82248; 83690; 83735; 84443; 85025; 96361; 96374; 96375; 99284; J2060; J2405; J7030; A9270; G0480

== ENCOUNTER 2024-09-18 13:09 | Emergency (ER) | payer MEDICAID, SELFPAY ==
[2024-09-18 13:10] VITALS: BMI 30.9
[2024-09-18 13:23] VITALS: BP 164/99; PULSE 93; RESP 18; TEMP 36.5; O2SAT 96
--- NOTE | 2024-09-18 13:27 | PD.EDRME ---
Rapid Medical Screening Exam RME Arrival date/time: 09/18/24 13:09 49-year-old male presents to the emergency department today for alcohol abuse Chief Complaint: Alcohol Vital signs: Vital Signs Temperature 97.7 F 09/18/24 13:23 Pulse Rate 93 09/18/24 13:23 Respiratory Rate 18 09/18/24 13:23 Blood Pressure 164/99 H 09/18/24 13:23 Pulse Oximetry (%) 96 09/18/24 13:23 Oxygen Delivery Method Room Air 09/18/24 13:23
[2024-09-18 13:46] LABS: Basophils # (Auto) 0.1 Thou/mm3 (0.0-0.2); Basophils % (Auto) 1 % (0-2.5); Eosinophils # (Auto) 0.2 Thou/mm3 (0.0-0.5); Eosinophils % (Auto) 2 % (0-10); Hematocrit 37.3 % (41.0-53.0); Hemoglobin 11.9 g/dL (13.5-16.0); Immature Granulocytes % (Auto) 1 % (0-0); Immature Granulocytes Auto 0.04 Thou/mm3 (0.00-0.00); Lymphocytes # (Auto) 1.7 Thou/mm3 (1.0-4.8); Lymphocytes % (Auto) 19 % (10-50); Mean Corpuscular HGB Conc 31.9 g/dl (31.0-37.0); Mean Corpuscular Hemoglobin 27.7 pg (25.0-35.0); Mean Corpuscular Volume 87 fL (80-100); Monocytes # (Auto) 0.7 Thou/mm3 (0.0-0.8); Monocytes % (Auto) 8 % (0-12); Neutrophils # (Auto) 6.1 Thou/mm3 (1.8-7.7); Neutrophils % (Auto) 70 % (37-80); Nucleated Red Blood Cell % 0 /100 WBC (0); Platelet Count 149 Thou/mm3 (140-440); RDW Standard Deviation 49.6 fL (35.1-43.9); Red Blood Count 4.29 Miln/mm3 (4.50-5.90); White Blood Count 8.8 Thou/mm3 (3.8-10.6)
[2024-09-18 14:17] LABS: Alanine Aminotransferase 174 U/L (10-49); Albumin, Serum 4.4 gm/dL (3.5-5.0); Albumin/Globulin Ratio 1.3 (1.2-2.2); Alkaline Phosphatase 343 U/L (46-116); Anion Gap 14 (7-16); Aspartate Amino Transferase 299 U/L (0-34); BUN/Creatinine Ratio 11 Ratio (12-20); Bilirubin,Total 0.7 mg/dL (0.3-1.2); Blood Urea Nitrogen 10 mg/dL (9-23); Calcium 8.6 mg/dL (8.3-10.6); Calcium (Corrected) 8.6 mg/dL (8.5-10.1); Carbon Dioxide 22.2 mMol/L (20.0-31.0); Chloride 111 mMol/L (98-107); Creatinine (Component) 0.9 mg/dL (0.6-1.3); Estimated Creatinine Clearance 124.4 mL/min (>60); Globulin 3.3 gm/dL (2.3-3.5); Glucose 117 mg/dL (74-106); Magnesium 1.8 mg/dL (1.6-2.6); Osmolality,Calculated 292 (275-295); Potassium 3.1 mMol/L (3.4-5.1); Sodium 147 mMol/L (136-145); Total Protein 7.7 gm/dL (5.7-8.2); eGFR > 60 See Note
[2024-09-18 14:21] LABS: Alcohol, Blood Medical 453.1 mg/dL (0-10.0)
--- NOTE | 2024-09-18 18:59 | EDNOTE_ITS ---
ED General RME/HPI General Chief complaint: Alcohol Stated complaint: ETOH WITHDRAWAL Time Seen by Provider: 09/18/24 18:03 Arrival date/time: 09/18/24 13:09 CC: I am all alcoholic and I do not feel well . HPI patient has a myriad of complaints that go from shortness of breath to pain in his legs. The patient speaking in full sentences oxygen saturations of 96% or better. The patient's heart rate is in the 90s. Pressure is mildly elevated. This patient is well- known to us having been seen multiple times for alcohol-related issues. Patient is awake alert oriented to self and place. When pressed the patient has no specific complaint. RME / HPI RME / HPI narrative: 09/18/24 13:09 49-year-old male presents to the emergency department today for alcohol abuse Related Data Home Medications ?Medication ?Instructions ?Recorded ?Confirmed amlodipine 10 mg tablet 10 mg PO QDAY 07/08/2111/17 Previous Rx's ?Medication ?Instructions ?Recorded hydrochlorothiazide 25 mg tablet 25 mg PO QAM #30 tabs 09/15/21 lisinopril 20 mg tablet 20 mg PO QDAY #30 tabs 09/15 potassium chloride 8 mEq 8 meq PO QDAY #30 caps 10/18 capsule,extended release ibuprofen 800 mg tablet 800 mg PO TID PRN pain #30 t abs 12/17/21 nirmatrelvir 300 mg (150 mg See Rx Instructions PO .CO MPLEX 12/17/21 x2)-ritonavir 100 mg tablet,dose #30 tabs pack (Paxlovid) hydrocodone 5 mg-acetaminophen 325 1 tab PO Q6H PRN pa in #15 tabs 08/06/23 mg tablet ibuprofen 600 mg tablet 600 mg PO Q6H PRN pain #30 t abs 08/06/23 acetaminophen 500 mg tablet 1,000 mg (2 x 500 mg) PO Q 6H PRN 03/30/24 (Tylenol Extra Strength) pain #30 tabs ibuprofen 600 mg tablet 600 mg PO Q6H PRN pain #30 t abs 03/30/24 lidocaine 5 % topical patch 1 patch topical QDAY PRN p ain #15 03/30/24 ea methocarbamol 500 mg tablet 1,000 mg (2 x 500 mg) PO Q 8H PRN 03/30/24 muscle pain #30 tabs ibuprofen 800 mg tablet 800 mg PO Q8H PRN pain #30 t abs 08/31/24 Allergies Allergy/AdvReac Type Severity Reaction Status Date / Time No Known Allergies Allergy Verified 09/18/24 13:13 Review of Systems Review of Systems Narrative Review of Systems: GEN: No fever, no chills, no weight loss EYES: No discharge, no visual changes, no pain HEENT: No ear pain, no congestion, no sore throat PULM: + shortness of breath, no cough, no congestion CV: No chest pain, no dyspnea on exertion, no palpitations GI: No nausea, no vomiting, no diarrhea, no pain, no constipation : No frequency, no urgency, no dysuria MUSC/SKEL: No joint pain, no back pain SKIN: No rash PSYCH: No hallucinations, no depression HEME/LYMPH: No easy bleeding or bruising tendencies NEURO: No weakness, no headache Past Medical History Past Medical History CARDIAC: Positive Hypertension; Negative Cardiac Disorders or Congestive Heart Failure RESPIRATORY: Negative Chronic Obstructive Pulmonary Disease (COPD) or Asthma GASTROINTESTINAL: Positive Gastrointestinal Disorders and Gall Bladder Disease GENITOURINARY: Negative Renal Disease MUSCULOSKELETAL: Positive Arthritis ENDOCRINE: Negative Diabetes Mellitus Type 1 or Diabetes Mellitus Type 2 HEMATOLOGIC: Negative Sickle Cell Disease OTHER HISTORY: Positive Falls; Negative Blood Transfusions, Anesthesia Reactions or Cancer Family History FAMILY HISTORY: Positive Family Cardiac Disorders and Family Cancer Social History SMOKING STATUS: Never smoker SECOND HAND EXPOSURE: Yes (sister including marijuana) SUBSTANCE USE: does not use ED Exam Narrative Physical exam: [General: Obese, intoxicated but not in any acute distress Head normocephalic HEENT: Within acceptable limits Neck is supple nontender Chest equal chest rise nontender to palpation Respiratory: Clear to auscultation no wheezes crackles or rubs CV: Rate rhythm is regular no murmurs rubs or clicks Abdomen is distended secondary to body habitus soft nontender no masses positive bowel sounds all 4 quadrants Back: No CVA tenderness no spinous process tenderness from cervical spine thoracic and lumbar spine Skin: Intact no petechiae rash induration ulceration or crepitus Extremities: Moving all extremities against resistance cap refill less than 2 seconds neurosensory intact Neuro: Awake alert oriented x3 Glascow coma 15 no focal deficits] Course Quality Measures none Orders Category Date Time Status Alcohol, Blood Medical Stat Lab 09/18/24 13:40 Completed CBC Stat Lab 09/18/24 13:40 Completed CMP [Comprehensive Metabolic Panel] Stat Lab 09/18/24 13:40 Completed Drug Screen,Urine Stat Lab 09/18/24 16:00 Ordered Mag [Magnesium] Stat Lab 09/18/24 13:40 Completed Vital Signs Vital signs: Vital Signs Temperature 97.7 F 09/18/24 13:23 Pulse Rate 93 09/18/24 13:23 Respiratory Rate 18 09/18/24 13:23 Blood Pressure 164/99 H 09/18/24 13:23 Pulse Oximetry (%) 96 09/18/24 13:23 Oxygen Delivery Method Room Air 09/18/24 13:23 MDM Patient data External records reviewed:: [facility] previous records Clinical information provided by:: patient Social determinants that could affect healthcare access:: alcohol use Patient has the following chronic illnesses:: Chronic alcoholism How is presenting disease/condition affected by chronic disease/condition?: e xacerbated by Evaluation data The following diagnostics were reviewed and interpreted by me:: lab results Lab and/or radiology exams considered but not ordered:: CBC shows no acute leukocytosis and H&H of 11.9 and 37.3 respectively with platelets at 149 CBC shows sodium of 147 potassium of 3.1 chloride of 111 normal anion gap BUN and creatinine with unremarkable glucose at 117. Patient has mild transaminitis but no T. bili elevation. Alcohol level is 453. Interpretation Summary: Chronic alcoholism, the patient is not willing to stop I had multiple visits with him in the past where he is not interested in help in stopping to drink. Will treat his hypertension and his hypokalemia and discharge him. Medications Medications considered but not ordered:: None Medication administrations:: None Consultations Consultation(s) initiated? (list below): No Diagnosis Differential Diagnosis ED Complaint MDM: Acute alcohol intoxication hypokalemia, hypertension Most likely diagnosis given after review of the tests above:: Alcohol intoxication hypokalemia hypertension Admission Indicated Admission indicated?: not indicated Explain why admission is indicated or not indicated:: Stable for discharge Admission Request Was there a request for admission?: No Disposition Plan Disposition Plan: Discharge Discharge Attestation Discharge Attestation: The patient and all family members were given an opportunity to ask questions and understood the discharge instructions. Discharge instructions specifically effects, indications for sooner follow up or return to the emergency department, and the expected course of current diagnosis. Patient condition: Stable Medical Decision Making Differential Diagnosis Differential Diagnosis: Acute alcohol intoxication hypokalemia, hypertension Lab Data 09/18/24 13:40 09/18/24 13:40 Labs: Lab Results 09/18/24 Range/Units 13:40 WBC 8.8 (3.8-10.6) Thou/mm3 RBC 4.29 L (4.50-5.90) Miln/mm3 Hgb 11.9 L (13.5-16.0) g/dL Hct 37.3 L (41.0-53.0) % MCV 87 (80-100) fL MCH 27.7 (25.0-35.0) pg MCHC 31.9 (31.0-37.0) g/dl RDW Std Deviation 49.6 H (35.1-43.9) fL Plt Count 149 (140-440) Thou/mm3 Neut % (Auto) 70 (37-80) % Lymph % (Auto) 19 (10-50) % [place] % (Auto) 8 (0-12) % Eos % (Auto) 2 (0-10) % Baso % (Auto) 1 (0-2.5) % Neut # (Auto) 6.1 (1.8-7.7) Thou/mm3 Lymph # (Auto) 1.7 (1.0-4.8) Thou/mm3 [place] # (Auto) 0.7 (0.0-0.8) Thou/mm3 Eos # (Auto) 0.2 (0.0-0.5) Thou/mm3 Baso # (Auto) 0.1 (0.0-0.2) Thou/mm3 Immature Gran # (Auto) 0.04 H (0.00-0.00) Thou/mm3 Absolute Nucleated RBC 0.00 (0.00-0.00) Thou/mm3 Immature Gran % 1 H (0-0) % Nucleated RBC % 0 (0) /100 WBC Sodium 147 H (136-145) mMol/L Potassium 3.1 L (3.4-5.1) mMol/L Chloride 111 H (98-107) mMol/L Carbon Dioxide 22.2 (20.0-31.0) mMol/L Anion Gap 14 (7-16) BUN 10 (9-23) mg/dL Creatinine 0.9 D (0.6-1.3) mg/dL Estim Creat Clear Calc 124.4 (>60) mL/min eGFR > 60 (60 - ) See Note BUN/Creatinine Ratio 11 L (12-20) Ratio Glucose 117 H (74-106) mg/dL Calculated Osmolality 292 (275-295) Calcium 8.6 (8.3-10.6) mg/dL Corrected Calcium 8.6 (8.5-10.1) mg/dL Magnesium 1.8 (1.6-2.6) mg/dL Total Bilirubin 0.7 (0.3-1.2) mg/dL AST 299 H (0-34) U/L ALT 174 H (10-49) U/L Alkaline Phosphatase 343 H D (46-116) U/L Total Protein 7.7 (5.7-8.2) gm/dL Albumin 4.4 (3.5-5.0) gm/dL Globulin 3.3 (2.3-3.5) gm/dL Albumin/Globulin Ratio 1.3 (1.2-2.2) Ethyl Alcohol 453.1 H* (0-10.0) mg/dL Discharge Plan Plan Patient Disposition: HOME (Self Care) Prescriptions/Referrals Prescriptions/Med Rec: No Action hydrochlorothiazide 25 mg tablet 25 mg PO QAM Qty: 30 1RF lisinopril 20 mg tablet 20 mg PO QDAY Qty: 30 1RF Paxlovid 150 mg x 2- 100 mg tablet See Rx Instructions .ROUTE .COMPLEX Qty: 30 0RF Rx Instructions: take TWO 150 mg tablets of nirmatrelvir with ONE 100 mg tablet of ritonavir twice daily for 5 days amlodipine 10 mg tablet 10 mg PO QDAY Patient Comments: has not taken for 1 year potassium chloride 8 mEq capsule, extended release 8 meq PO QDAY Qty: 30 0RF ibuprofen 800 mg tablet 800 mg PO TID PRN (Reason: pain) Qty: 30 0RF ibuprofen 600 mg tablet 600 mg PO Q6H PRN (Reason: pain) Qty: 30 0RF hydrocodone-acetaminophen 5-325 mg tablet 1 tab PO Q6H MDD 9 PRN (Reason: pain) Qty: 15 0RF ibuprofen 600 mg tablet 600 mg PO Q6H PRN (Reason: pain) Qty: 30 0RF acetaminophen [Tylenol Extra Strength] 500 mg tablet 1,000 mg PO Q6H PRN (Reason: pain) Qty: 30 0RF lidocaine 5 % adhesive patch,medicated 1 patch topical QDAY PRN (Reason: pain) Qty: 15 0RF Rx Instructions: leave on most painful area for up to 12 hrs methocarbamol 500 mg tablet 1,000 mg PO Q8H PRN (Reason: muscle pain) Qty: 30 0RF ibuprofen 800 mg tablet 800 mg PO Q8H PRN (Reason: pain) Qty: 30 0RF Referrals: Jacinto Diaz MD [Primary Care Provider] - In 1 week Problem List Clinical Impression: Alcohol intoxication, Hypokalemia, Hypertension Patient/Caregiver Discharge Instructions Print Language: Sierra Leonean Stand Alone Forms: Mayuri Award Info., Patient Portal Info Letter PA/BODY STRAIGHTENER Supervising Physician PA/BODY STRAIGHTENER Supervising Physician: Sylvain Quiles ENP
[2024-09-18 19:18] VITALS: BP 151/89; PULSE 93
[2024-09-18] MEDS: hydrALAZINE HCL 25 MG TABLET PO (19:18)
[2024-09-18] MEDS: POTASSIUM CHLORIDE 10% 20 MEQ/15 ML UDC 40 MEQ GT (19:20)
[2024-09-18 19:35] VITALS: RESP 18
== END 2024-09-18 19:36 | disposition home or self-care (01) ==
PROVIDERS: Nurse Practitioner Primary Care; Emergency Provider Emergency Medicine; PCP Family Medicine
DX: F10.229 Alcohol dependence with intoxication, unspecified (principal); E87.6 Hypokalemia; I10 Essential (primary) hypertension; Y90.8 Blood alcohol level of 240 mg/100 ml or more
CPT/HCPCS: 36415; 80053; 80307; 80320; 83735; 85025; 99283; A9270; G0480

== ENCOUNTER 2024-09-19 00:43 | Emergency (ER) | payer MEDICAID, SELFPAY ==
[2024-09-19] VITALS (20 sets, daily range): BP systolic 137–181; BP diastolic 72–112; PULSE 76–98; RESP 11–28; TEMP 36.5–37; O2SAT 92–100; BMI 30.3
--- NOTE | 2024-09-19 01:07 | PD.EDALCOH ---
ED Alcohol RME/HPI General Chief Complaint: Alcohol Stated Complaint: ALCOHOL INTOXICATION Time Seen by Provider: 09/19/24 01:06 Arrival date/time: 09/19/24 00:43 RME / HPI RME / HPI narrative: This section includes all my notes and documentations, including HPI, PE, and ED course. Sagar Garcia MD HPI: 49 y/o male with h/o alcohol intoxication, hypertension, gallbladder disease here not feeling well due to alcohol. Reports drinking a gallon of vodka daily for months and over a year. Request admission for help with his alcohol problem. Reports vomiting and abdominal pain. Denies drugs. Reports severe alcohol withdrawals in the past including seizures. No other complaints. ROS: All negative except as documented in HPI. Physical Exam: General: Appears severely intoxicated. Has trouble staying awake. High BP noted. Eyes: Conjunctivae and lids clear. PERRL. EOMI. ENT: No signs of trauma. Neck: Supple. Heart: RRR. Lungs: No respiratory distress. Good air movement. No rhonchi, wheezing, rales. Abdomen: Soft with cecal tenderness, difficult to localize. Legs: No clubbing, cyanosis, edema. Skin: Warm and dry. Neuro: Cranial nerves II to XII grossly normal. No peripheral motor deficits. I reviewed all diagnostic test results. Blood tests and urine tests remarkable for K 3.1, AST, ALT 166, alk phos 221, serum alcohol 407.3, and UDS positive for methamphetamine. Abdominal CT and gallbladder US pending. At this point, diagnoses include alcohol intoxication and methamphetamine use and hypertensive urgency and hypokalemia. Treatment here included IV fluid, thiamine, oral KCl, Zofran, and oral clonidine. At 6 AM on 09/19/2024, the care of the patient was transferred to Dr. MOMIN. Sagar Garcia MD Related Data Home Medications ?Medication ?Instructions ?Recorded ?Confirmed amlodipine 10 mg tablet 10 mg PO QDAY 07/08/21 11/17/21 Previous Rx's ?Medication ?Instructions ?Recorded hydrochlorothiazide 25 mg tablet 25 mg PO QAM #30 tabs 09/15/21 lisinopril 20 mg tablet 20 mg PO QDAY #30 tabs 09/15/21 potassium chloride 8 mEq 8 meq PO QDAY #30 caps 10/18/21 capsule,extended release ibuprofen 800 mg tablet 800 mg PO TID PRN pain #30 tabs 12/17/21 nirmatrelvir 300 mg (150 mg See Rx Instructions PO .COMPLEX 12/17/21 x2)-ritonavir 100 mg tablet,dose #30 tabs pack (Paxlovid) hydrocodone 5 mg-acetaminophen 325 1 tab PO Q6H PRN pain #15 tabs 08/06/23 mg tablet ibuprofen 600 mg tablet 600 mg PO Q6H PRN pain #30 tabs 08/06/23 acetaminophen 500 mg tablet 1,000 mg (2 x 500 mg) PO Q6H PRN 03/30/24 (Tylenol Extra Strength) pain #30 tabs ibuprofen 600 mg tablet 600 mg PO Q6H PRN pain #30 tabs 03/30/24 lidocaine 5 % topical patch 1 patch topical QDAY PRN pain #15 03/30/24 ea methocarbamol 500 mg tablet 1,000 mg (2 x 500 mg) PO Q8H PRN 03/30/24 muscle pain #30 tabs ibuprofen 800 mg tablet 800 mg PO Q8H PRN pain #30 tabs 08/31/24 Allergies Allergy/AdvReac Type Severity Reaction Status Date / Time No Known Allergies Allergy Verified 09/18/24 13:13 Review of Systems Review of Systems Systems Reviewed: All systems reviewed, normal except as documented Narrative Review of Systems: Refer to HPI. Past Medical History Past Medical History CARDIAC: Positive Hypertension GASTROINTESTINAL: Positive Gastrointestinal Disorders and Gall Bladder Disease MUSCULOSKELETAL: Positive Arthritis OTHER HISTORY: Positive Falls Family History FAMILY HISTORY: Positive Family Cardiac Disorders and Family Cancer Social History SMOKING STATUS: Never smoker SECOND HAND EXPOSURE: Yes (sister including marijuana) SUBSTANCE USE: does not use ED Exam Narrative Physical exam: As noted in HPI. Course Quality Measures none Orders Category Date Time Status Saline [Insert IV] NOW Care 09/19/24 01:15 Active Straight [In and Out Catheter] X1 Care 09/19/24 01:[address] abdomen pelvis wo con Stat Exams 09/19/24 03:29 Ordered US gall bladder Stat Exams 09/19/24 03:29 Taken Acetaminophen Stat Lab 09/19/24 01:59 Completed Alcohol, Blood Medical Stat Lab 09/19/24 01:59 Completed Amylase Stat Lab 09/19/24 01:59 Completed Bilirubin,Direct Stat Lab 09/19/24 01:59 Completed CBC Stat Lab 09/19/24 01:59 Completed CMP [Comprehensive Metabolic Panel] Stat Lab 09/19/24 01:59 Completed Drug Screen,Urine Stat Lab 09/19/24 03:00 Completed Lipase Stat Lab 09/19/24 01:59 Completed Magnesium Stat Lab 09/19/24 01:59 Completed PT [Prothrombin Time with INR] Stat Lab 09/19/24 01:59 Completed PTT [Partial Thromboplastin Time] Stat Lab 09/19/24 01:59 Completed Salicylate Stat Lab 09/19/24 01:59 Completed KCL 10% Liq UDC 15 ML Med 09/19/24 03:28 Discontinued 40 meq PO X1 ONE LORazepam [Ativan Inj] Med 09/19/24 01:15 Discontinued 2 mg IVP X1 ONE Ondansetron Inj [Zofran Inj] Med 09/19/24 01:15 Discontinued 4 mg IV X1 ONE Sodium Chloride 0.9% 1000 ml [Ns] 1,000 ml Med 09/19/24 01:15 Discontinued IV 999 mls/hr Thiamine Inj [Vitamin B-1 Inj] Med 09/19/24 01:15 Discontinued 100 mg IVP X1 ONE cloNIDine HCL [Catapres] Med 09/19/24 03:28 Discontinued 0.3 mg PO X1 ONE Vital Signs Vital signs: Vital Signs Temperature 97.7 F 09/19/24 00:55 Pulse Rate 91 09/19/24 00:55 Respiratory Rate 18 09/19/24 00:55 Blood Pressure 180/105 H 09/19/24 00:55 Pulse Oximetry (%) 98 09/19/24 00:55 Oxygen Delivery Method Room Air 09/19/24 00:55 Discharge Plan Prescriptions/Referrals Prescriptions/Med Rec: No Action hydrochlorothiazide 25 mg tablet 25 mg PO QAM Qty: 30 1RF lisinopril 20 mg tablet 20 mg PO QDAY Qty: 30 1RF Paxlovid 150 mg x 2- 100 mg tablet See Rx Instructions .ROUTE .COMPLEX Qty: 30 0RF Rx Instructions: take TWO 150 mg tablets of nirmatrelvir with ONE 100 mg tablet of ritonavir twice daily for 5 days amlodipine 10 mg tablet 10 mg PO QDAY Patient Comments: has not taken for 1 year potassium chloride 8 mEq capsule, extended release 8 meq PO QDAY Qty: 30 0RF ibuprofen 800 mg tablet 800 mg PO TID PRN (Reason: pain) Qty: 30 0RF ibuprofen 600 mg tablet 600 mg PO Q6H PRN (Reason: pain) Qty: 30 0RF hydrocodone-acetaminophen 5-325 mg tablet 1 tab PO Q6H MDD 9 PRN (Reason: pain) Qty: 15 0RF ibuprofen 600 mg tablet 600 mg PO Q6H PRN (Reason: pain) Qty: 30 0RF acetaminophen [Tylenol Extra Strength] 500 mg tablet 1,000 mg PO Q6H PRN (Reason: pain) Qty: 30 0RF lidocaine 5 % adhesive patch,medicated 1 patch topical QDAY PRN (Reason: pain) Qty: 15 0RF Rx Instructions: leave on most painful area for up to 12 hrs methocarbamol 500 mg tablet 1,000 mg PO Q8H PRN (Reason: muscle pain) Qty: 30 0RF ibuprofen 800 mg tablet 800 mg PO Q8H PRN (Reason: pain) Qty: 30 0RF Referrals: Temporary Provider,ED [Physician] - In 1 week Problem List Clinical Impression: Alcohol intoxication, Methamphetamine abuse, Hypokalemia, Hypertension Patient/Caregiver Discharge Instructions Print Language: [place]ian Alcohol MDM Narrative MDM Narrative: Darcy Muñoz am scribing for and in the presence of Dr. Sagar Garcia. Patient data External records reviewed:: [facility] previous records (Reviewed prior visit note from 09/18/2024 for Alcohol intoxication.) Clinical information provided by:: patient Social determinants that could affect healthcare access:: alcohol use Patient has the following chronic illnesses:: hypertension, gallbladder disease, alcohol abuse How is presenting disease/condition affected by chronic disease/condition?: exacerbated by Evaluation data The following diagnostics were reviewed and interpreted by me:: lab results and radiology exam(s) Lab and/or radiology exams considered but not ordered:: None Interpretation Summary: alcohol intoxication and methamphetamine use and hypertensive urgency and hypokalemia Medications / Prescriptions Medications or Prescriptions considered but not ordered:: None Medication administrations:: Medication Administration History Discontinued Medications Clonidine (Clonidine Hcl 0.1 Mg Tablet) 0.3 mg PO X1 ONE Stop: 09/19/24 03:29 Last Admin: 09/19/24 04:25 Dose: 0.3 mg Documented By: LB Sodium Chloride (Ns) 1,000 mls @ 999 mls/hr IV .Q1H1M ONE Stop: 09/19/24 02:15 Last Infusion: 09/19/24 02:48 Dose: Infused Documented By: Admin: 09/19/24 01:47 Dose: 999 mls/hr Documented By: EF Lorazepam (Lorazepam 2 Mg/Ml Vial) 2 mg IVP X1 ONE Stop: 09/19/24 01:16 Last Admin: 09/19/24 03:11 Dose: 2 mg Documented By: LB Ondansetron HCl (Ondansetron Inj 2 Mg/Ml Inj 2 Ml) 4 mg IV X1 ONE; Protocol Stop: 09/19/24 01:16 Last Admin: 09/19/24 01:47 Dose: 4 mg Documented By: EF Potassium Chloride (Potassium Chloride 10% 20 Meq/15 Ml Udc) 40 meq PO X1 ONE Stop: 09/19/24 03:29 Thiamine HCl (Thiamine Inj 100 Mg/Ml Vial 2 Ml) 100 mg IVP X1 ONE Stop: 09/19/24 01:16 Last Admin: 09/19/24 01:47 Dose: 100 mg Documented By: EF Treatment here included IV fluid, thiamine, oral KCl, Zofran, and oral clonidine. Consultations Consultation(s) initiated? (list below): No Diagnosis Differential diagnosis alcohol: alcohol withdrawal delirium, hypomagnesemia, alcohol intoxication, alcohol ketoacidosis, alcohol withdrawal syndrome and alcohol withdrawal seizure Most likely diagnosis given after review of the tests above:: alcohol intoxication and methamphetamine use and hypertensive urgency and hypokalemia Admission Indicated Admission indicated?: not indicated Explain why admission is indicated or not indicated:: Complete diagnostics not completed. Admission Request Was there a request for admission?: No Disposition Plan Disposition Plan: other (specify) (Care of the patient was transferred to Dr. MOMIN.)
--- NOTE | 2024-09-19 01:20 | PC.NURSE ---
Pt brought to RM #7 with c/o I don't feel good, I drink too much . Pt assisted up to caroline.
[2024-09-19] MEDS: THIAMINE INJ 100 MG/ML VIAL 2 ML IVP (01:47)
[2024-09-19] MEDS: SODIUM CHLORIDE 0.9% 1000 ML 1,000 ML 999 ML IV (01:47)
[2024-09-19] MEDS: ONDANSETRON INJ 2 MG/ML INJ 2 ML 4 MG IV (01:47)
[2024-09-19 02:17] LABS: Basophils # (Auto) 0.1 Thou/mm3 (0.0-0.2); Basophils % (Auto) 1 % (0-2.5); Eosinophils # (Auto) 0.1 Thou/mm3 (0.0-0.5); Eosinophils % (Auto) 2 % (0-10); Hematocrit 36.5 % (41.0-53.0); Hemoglobin 11.5 g/dL (13.5-16.0); Immature Granulocytes % (Auto) 1 % (0-0); Immature Granulocytes Auto 0.03 Thou/mm3 (0.00-0.00); Lymphocytes # (Auto) 1.5 Thou/mm3 (1.0-4.8); Lymphocytes % (Auto) 22 % (10-50); Mean Corpuscular HGB Conc 31.5 g/dl (31.0-37.0); Mean Corpuscular Hemoglobin 27.6 pg (25.0-35.0); Mean Corpuscular Volume 88 fL (80-100); Monocytes # (Auto) 0.6 Thou/mm3 (0.0-0.8); Monocytes % (Auto) 9 % (0-12); Neutrophils # (Auto) 4.3 Thou/mm3 (1.8-7.7); Neutrophils % (Auto) 66 % (37-80); Nucleated Red Blood Cell % 0 /100 WBC (0); Platelet Count 119 Thou/mm3 (140-440); RDW Standard Deviation 50.4 fL (35.1-43.9); Red Blood Count 4.17 Miln/mm3 (4.50-5.90); White Blood Count 6.6 Thou/mm3 (3.8-10.6)
[2024-09-19 02:44] LABS: Acetaminophen < 2.0 mcg/mL (10.0-20.0); Alanine Aminotransferase 166 U/L (10-49); Albumin, Serum 4.2 gm/dL (3.5-5.0); Albumin/Globulin Ratio 1.4 (1.2-2.2); Alkaline Phosphatase 321 U/L (46-116); Amylase 63 U/L (30-118); Anion Gap 12 (7-16); Aspartate Amino Transferase 309 U/L (0-34); BUN/Creatinine Ratio 11 Ratio (12-20); Bilirubin,Direct 0.3 mg/dL (0.0-0.3); Bilirubin,Total 0.7 mg/dL (0.3-1.2); Blood Urea Nitrogen 9 mg/dL (9-23); Calcium 7.9 mg/dL (8.3-10.6); Calcium (Corrected) 7.9 mg/dL (8.5-10.1); Carbon Dioxide 23.3 mMol/L (20.0-31.0); Chloride 112 mMol/L (98-107); Creatinine (Component) 0.8 mg/dL (0.6-1.3); Estimated Creatinine Clearance 138.6 mL/min (>60); Glucose 94 mg/dL (74-106); Lipase 49 U/L (12-53); Magnesium 1.7 mg/dL (1.6-2.6); Osmolality,Calculated 291 (275-295); Potassium 3.1 mMol/L (3.4-5.1); Salicylate < 3.0 mg/dL; Sodium 147 mMol/L (136-145); Total Protein 7.2 gm/dL (5.7-8.2); eGFR > 60 See Note
[2024-09-19 02:54] LABS: INR 1.1 (0.9-1.3); Partial Thromboplastin Time 29.9 Seconds (22.0-36.0)
--- NOTE | 2024-09-19 02:56 | PC.NURSE ---
Sleeping, aroused easily, urine requested.
[2024-09-19] MEDS: LORazepam 2 MG/ML VIAL IVP (03:11)
[2024-09-19 03:14] LABS: Alcohol, Blood Medical 407.3 mg/dL (0-10.0)
--- NOTE | 2024-09-19 03:29 | XR_ITS ---
Examination: Abdomen sonogram, Limited Date and time of exam: September 19, 2024 0413 hrs. Indications: Onset right lower abdominal pain beginning today Technique: Real-time cortes scale transabdominal sonographic images of the upper abdomen obtained. Findings: Gallstones Gallbladder wall 0.3 cm Common bile duct 0.8 cm cm no stones Pancreatic head 3.9 cm Liver 20.0 cm fatty infiltration no focal liver lesions Normal hepatopedal portal venous flow Patent IVC Impression: Cholelithiasis Common bile duct 0.8 cm Pancreatic head measures prominent 3.9 cm clinical correlation advised Hepatomegaly with fatty infiltration
--- NOTE | 2024-09-19 03:29 | XR_ITS ---
Examination: CT abdomen and pelvis without contrast. Coronal 3-D reconstructions. Sagittal 2-D reconstructions. Date and time of exam:September 19, 2024 at 0438 hrs. Indications: Alcohol intoxication with abdominal pain today CTDI: vol (mGy): 10.1 DLP: (mGycm): 698 Technique: Axial images of the abdomen have been obtained, 3 mm slice thickness Intravenous contrast material has not been administered. Low dose protocols were performed. One or more of the following dose reduction techniques were used; automated exposure control, adjustment of the mA and/or KV according to patient size, use of iterative reconstruction technique. Findings: Diffuse fatty infiltration throughout the liver with irregular liver contour Contracted gallbladder with gallstones Hepatomegaly 21 Splenomegaly 16 cm No pancreatic mass Normal adrenal glands Smaller left kidney with mild wall thickening of the pelvicalyceal system Aorta not enlarged Fluid-filled tubular structure medial to the cecum coronal image 94 consistent with acute appendicitis Urinary bladder intact Diffuse thickening of the colonic wall including rectum No bowel obstruction Impression: Fluid-filled tubular structure, enlarged, medial to the cecum, coronal images 94, consistent with acute appendicitis, the appearance should be clinically correlated No pelvic abscess
[2024-09-19 03:59] LABS: Amphetamine/Methamp Scrn,U Positive (Negative); Barbiturate Screen,Urine Negative (Negative); Benzodiazepines Screen,Urine Negative (Negative); Benzoylecgonine Screen, Ur Negative (Negative); Fentanyl Screen,Urine Negative (Negative); Opiate Screen,Urine Negative (Negative); THC Screen,Urine Negative (Negative)
[2024-09-19] MEDS: cloNIDine HCL 0.1 MG TABLET 0.3 MG PO (04:25)
--- NOTE | 2024-09-19 04:33 | PC.NURSE ---
To ct-scan via gurney.
[2024-09-19] MEDS: POTASSIUM CHLORIDE 10% 20 MEQ/15 ML UDC 40 MEQ PO (05:31)
--- NOTE | 2024-09-19 05:39 | PRELIM_ITS ---
CT scan of the abdomen and pelvis without intravenous contrast (axial sections with sagittal and coronal reformats) September 19, 2024 0438 hours Clinical History: Abdominal pain. Comparison: No prior study is available for comparison. Findings: The lung bases are clear. The gallbladder, pancreas, spleen, kidneys and adrenals are unremarkable on this noncontrast study. Irregular liver margins. Liver steatosis. No evidence of bowel obstruction. Thickening of the appendix measuring up to 1.1 cm associated with peripheral fat stranding, no perforation, no collections. There is no mesenteric or retroperitoneal adenopathy. The urinary bladder is unremarkable. There is no free fluid or free air. No acute fractures. Chronic disc disease at the L5-S1. Subcutaneous hematoma lateral to the right hip joint, partially imaged. Impression: Acute appendicitis. Surgical consult is recommended. Subcutaneous hematoma lateral to the right hip joint. Cirrhosis. Discussion Details: Results verbally communicated to : Dr. Garcia at 05:19 AM 09/19/2024 Report Electronically Signed By: Edwin Garrido 09/19/2024 5:38:33 AM [EST]
[2024-09-19] MEDS: PIPER/TAZO INJ 4.5 GM in SODIUM CHLORIDE 0.9% (POP) 100 ML IV (06:21)
--- NOTE | 2024-09-19 06:25 | PRELIM_ITS ---
Right upper quadrant abdominal ultrasound with Doppler and wave Doppler spectral analysis. September 19, 2024 0413 hours Clinical history: Right upper quadrant tenderness. Technique: Grayscale and color flow images of the right upper quadrant are provided. Hepatic and portal veins were also imaged with color flow images. Comparison: None available at the time of this report. Findings: Limited study. The liver is enlarged and demonstrates increased echogenicity. Mild irregular liver margins. No intrahepatic biliary ductal dilatation. No gallbladder wall thickening. Probable gallstones, limited evaluation. Questionable trace of pericholecystic fluid. The common bile duct is dilated in caliber at 7.5 mm. The pancreas is unremarkable to the extent visualized. The right kidney is not clearly visualized. The hepatic veins are patent with monophasic blood flow by wave Doppler spectral analysis. The inferior vena cava is patent with normal wave Doppler spectral analysis. The portal vein is patent with hepatopetal flow with normal wave Doppler spectral analysis. Impression: Dilated CBD suspicious for choledocholithiasis. Hepatomegaly associated with liver steatosis, suspicious for steatohepatitis. Limited evaluation of the gallbladder, acute cholecystitis cannot be excluded. Consider correlation with HIDA scan or MRCP. Possible cirrhosis. Report Electronically Signed By: Edwin Garrido 09/19/2024 6:24:44 AM [EST]
--- NOTE | 2024-09-19 11:19 | PD.EDADDENDU ---
Emergency Room Addendum Addendum Narrative: 0600: Care assumed from Dr. Garcia, the previous shift emergency physician. Past medical, surgical, social and family history reviewed. Vitals and home medications reviewed. I will assume the care of the patient at this time, pending consultation with general surgeon. Please refer to the emergency department record for history and examination from initial visit.?The following addendum documentation note is intended to reflect any pending information, findings, or radiology results not included in the patient?s initial chart. 0645: Surgeon Dr. Cordero has attempted to examine the patient however reports to still be intoxicated and will come reassess. 1015: Surgeon Dr. Cordero has evaluated the patient in the ED. Does not feel the patient has an acute appendicitis and advised patient can go home. 1030: Per RN, patient stood and had complained of feeling dizzy. Will perform orthostatic vital signs. 1115: Orthostatic vital signs are as follows: Laying 156/85, HR 90. Sitting 165/95, HR 95. Standing 167/91, HR 95. Patient does not complain of feeling dizzy and states he is feeling better and wanting to go home. Will DC home.
--- NOTE | 2024-09-19 16:37 | PD.SURCONS ---
HPI Consult details Consult date: 09/19/24 Reason for consultation narrative: The patient was seen in consultation because CT scan showed acute appendicitis by the radiologist History of present illness: Patient has been admitted to hospital emergency room with severe alcohol intoxication. Apparently patient has come with alcohol intoxication 2 or 3 times this week. He was complaining of severe vomiting and epigastric pain. He said he drank a lot of vodka. He does not have any abdominal pain especially over the right lower quadrant. As [id number] I could not talk to him when I initially saw him on the morning of 09/19/2024. I had come back to get some information. He said he has had a history of alcoholism only in the past 4 years and he may even have cirrhosis Past Medical History Past Medical History CARDIAC: Positive Hypertension; Negative Cardiac Disorders or Congestive Heart Failure RESPIRATORY: Negative Chronic Obstructive Pulmonary Disease (COPD) or Asthma GASTROINTESTINAL: Positive Gastrointestinal Disorders and Gall Bladder Disease GENITOURINARY: Negative Renal Disease MUSCULOSKELETAL: Positive Arthritis ENDOCRINE: Negative Diabetes Mellitus Type 1 or Diabetes Mellitus Type 2 HEMATOLOGIC: Negative Sickle Cell Disease OTHER HISTORY: Positive Falls; Negative Blood Transfusions, Anesthesia Reactions or Cancer Family History FAMILY HISTORY: Positive Family Cardiac Disorders and Family Cancer Social History SMOKING STATUS: Never smoker SECOND HAND EXPOSURE: Yes (sister including marijuana) SUBSTANCE USE: does not use Meds Home Medications and Allergies Home Medications ?Medication ?Instructions ?Recorded ?Confirmed ?Type amlodipine 10 mg tablet 10 mg PO QDAY 07/08/21 11/17/21 History Allergies Allergy/AdvReac Type Severity Reaction Status Date / Time No Known Allergies Allergy Verified 09/18/24 13:13 Exam Vital Signs Temp Pulse Resp BP Pulse Ox O2 Del Method O2 Flow Rate 98.5 F 88 18 156/85 H 99 Room Air 2 09/19/24 11:20 09/19/24 11:20 09/19/24 11:20 09/19/24 11:20 09/19/24 11:20 09/19/24 10:00 09/19/24 08:00 Narrative Exam Physical examination revealed an obese male who is 6 foot 1 inch tall weighing 230 pounds with BMI of 30 his vital signs are normal other than slightly elevated systolic blood pressure Constitutional Comments: Patient was inebriated due to alcohol intoxication Routine Abdominal Exam Comments: Examination of the abdomen showed some tenderness in the epigastric region and left upper quadrant. But the patient did not complain of any pain over the right lower quadrant. Bowel sounds are normal Routine Rectal Exam Comments: Deferred Results Results: Laboratory Laboratory Narrative: Patient's laboratory workup showed no abnormality like a leukocytosis Results: Imaging Imaging narrative: CT scan of the abdomen showed enlarged appendix in just 1 view but no pericecal or periappendiceal inflammation was seen. There is still suspicions of appendicitis but suggested clinical evaluation Assessment & Plan Additional Assessment Additional comments: Impression: Acute alcoholism Obesity Hypertension Plan Plan: Patient does not seem to have any signs of appendicitis clinically. He does not have any pain in the right lower quadrant neither has any tenderness. I will treat him symptomatically for his alcohol intoxication and follow him up.
== END 2024-09-19 11:26 | disposition home or self-care (01) ==
PROVIDERS: Emergency Provider Emergency Medicine; PCP Family Medicine
DX: F10.129 Alcohol abuse with intoxication, unspecified (principal); I16.0 Hypertensive urgency; E87.6 Hypokalemia; F15.10 Other stimulant abuse, uncomplicated; I10 Essential (primary) hypertension; E66.9 Obesity, unspecified; Z68.30 Body mass index [BMI] 30.0-30.9, adult
CPT/HCPCS: 36415; 74176; 76705; 80053; 80307; 80320; 80329; 82150; 82248; 83690; 83735; 85025; 85610; 85730; 87811; 96361; 96365; 96375; 99284; J2060; J2405; J2543; J3411; J7030; A9270; G0480

== ENCOUNTER 2024-09-19 21:19 | Inpatient (IN) | payer MEDICAID, SELFPAY ==
[2024-09-19 21:25] VITALS: BP 193/110; PULSE 98; RESP 12; TEMP 37.1; O2SAT 99
--- NOTE | 2024-09-19 21:29 | PD.EDRME ---
Rapid Medical Screening Exam E Arrival date/time: 09/19/24 21:19 Chief Complaint: General Adult/Misc Complain Vital signs: Vital Signs Temperature 98.7 F 09/19/24 21:25 Pulse Rate 98 09/19/24 21:25 Respiratory Rate 12 09/19/24 21:25 Blood Pressure 193/110 H 09/19/24 21:25 Pulse Oximetry (%) 99 09/19/24 21: Oxygen Delivery Method Nasal Cannula 09/19/24 21: Oxygen Flow Rate 2 09/19/24 21:25 RME Narrative: 49yo male BIBA from home presents to the ED due to feeling generally unwell x 1.5 weeks. Patient states he's had a subjective fever, cough, sneezing, and has had generalized weakness for the last week and a half. He states he last drank alcohol 5 hours ago.
--- NOTE | 2024-09-19 21:44 | EDNOTE_ITS ---
ED General RME/HPI General Chief complaint: General Adult/Misc Complain Stated complaint: FLU LIKE SYMPTOMS/ DIFFICULTY BREATHING Time Seen by Provider: 09/19/24 21:36 Arrival date/time: 09/19/24 21:19 Limitations: no limitations RME / HPI RME / HPI narrative: Dr. Almazan's Main ED Evaluation: 49yo male CELEST[place] from home presents to the ED due to feeling generally unwell x 1.5 weeks. Patient states he's had a subjective fever, cough, sneezing, and has had generalized weakness for the last week and a half. He states he last drank alcohol 5 hours ago. He states he normally drinks one gallon of vodka daily, but drank half a gallon today. He states he wants to stop drinking. Related Data Home Medications ?Medication ?Instructions ?Recorded ?Confirmed amlodipine 10 mg tablet 10 mg PO QDAY 07/08/2111/17 Previous Rx's ?Medication ?Instructions ?Recorded hydrochlorothiazide 25 mg tablet 25 mg PO QAM #30 tabs 09/15/21 lisinopril 20 mg tablet 20 mg PO QDAY #30 tabs 09/15 potassium chloride 8 mEq 8 meq PO QDAY #30 caps 10/18 capsule,extended release ibuprofen 800 mg tablet 800 mg PO TID PRN pain #30 t abs 12/17/21 nirmatrelvir 300 mg (150 mg See Rx Instructions PO .CO MPLEX 12/17/21 x2)-ritonavir 100 mg tablet,dose #30 tabs pack (Paxlovid) hydrocodone 5 mg-acetaminophen 325 1 tab PO Q6H PRN pa in #15 tabs 08/06/23 mg tablet ibuprofen 600 mg tablet 600 mg PO Q6H PRN pain #30 t abs 08/06/23 acetaminophen 500 mg tablet 1,000 mg (2 x 500 mg) PO Q 6H PRN 03/30/24 (Tylenol Extra Strength) pain #30 tabs ibuprofen 600 mg tablet 600 mg PO Q6H PRN pain #30 t abs 03/30/24 lidocaine 5 % topical patch 1 patch topical QDAY PRN p ain #15 03/30/24 ea methocarbamol 500 mg tablet 1,000 mg (2 x 500 mg) PO Q 8H PRN 03/30/24 muscle pain #30 tabs ibuprofen 800 mg tablet 800 mg PO Q8H PRN pain #30 t abs 08/31/24 Allergies Allergy/AdvReac Type Severity Reaction Status Date / Time No Known Allergies Allergy Verified 09/19/24 21:27 Review of Systems Review of Systems Systems Reviewed: All systems reviewed, normal except as documented Past Medical History Past Medical History CARDIAC: Positive Hypertension; Negative Cardiac Disorders or Congestive Heart Failure RESPIRATORY: Negative Chronic Obstructive Pulmonary Disease (COPD) or Asthma GASTROINTESTINAL: Positive Gastrointestinal Disorders and Gall Bladder Disease GENITOURINARY: Negative Renal Disease MUSCULOSKELETAL: Positive Arthritis ENDOCRINE: Negative Diabetes Mellitus Type 1 or Diabetes Mellitus Type 2 HEMATOLOGIC: Negative Sickle Cell Disease OTHER HISTORY: Positive Falls; Negative Blood Transfusions, Anesthesia Reactions or Cancer Family History FAMILY HISTORY: Positive Family Cardiac Disorders and Family Cancer Social History SMOKING STATUS: Never smoker SECOND HAND EXPOSURE: Yes (sister including marijuana) SUBSTANCE USE: does not use ED Exam General Limitations: Present no limitations General appearance: Present alert, in no apparent distress and other (is able to stand; slightly tremulous) Head Head exam: Present atraumatic Eye Eye exam: Present normal appearance, PERRL and EOMI; Absent nystagmus ENT ENT exam: Present normal exam, normal oropharynx and mucous membranes moist Neck Neck exam: Present normal inspection, full ROM and trachea midline Chest Chest inspection: Present normal inspection and symmetric chest wall rise Respiratory Respiratory exam: Present normal lung sounds bilaterally Cardiovascular Cardiovascular exam: Present regular rate, normal rhythm and normal heart sounds Abdominal Exam Abdominal exam: Present soft and normal bowel sounds Extremities Exam Extremities exam: Present normal inspection and full ROM Back Exam Back exam: Present normal inspection and full ROM Neurological Exam Neurological exam: Present alert, oriented X3, CN II-XII intact and normal gait Expanded Neurological Exam Cerebellar function: Absent ataxic gait Motor strength - LUE: 5/5 Motor strength - RUE: 5/5 Motor strength - LLE: 5/5 Motor strength - RLE: 5/5 Psychiatric Psychiatric exam: Present normal affect and normal mood; Absent agitated Skin Skin exam: Present warm, dry, intact and normal color Course Quality Measures none Orders Category Date Time Status CT Screening NOW Care 09/20/24 04:01 Active IV [Insert IV] NOW Care 09/19/24 22:[address] angio chest Stat Exams 09/20/24 04:[address] head/brain wo con Stat Exams 09/19/24 21:53 Completed Alcohol, Blood Medical Stat Lab 09/19/24 22:06 Completed Blood Culture (Lab) Stat Lab 09/20/24 06:16 Ordered CBC Stat Lab 09/19/24 22:06 Completed CMP [Comprehensive Metabolic Panel] Stat Lab 09/19/24 22:06 Completed D-Dimer Stat Lab 09/19/24 22:06 Completed Lactic Acid [Lactate (Lactic Acid)] Stat Lab 09/20/24 06:16 Ordered PT [Prothrombin Time with INR] Stat Lab 09/19/24 22:06 Completed PTT [Partial Thromboplastin Time] Stat Lab 09/19/24 22:06 Completed Troponin I Stat Lab 09/19/24 22:06 Completed Folic Acid Med 09/20/24 06:15 Discontinued 1 mg PO X1 ONE Folic Acid Inj Med 09/19/24 21:44 Discontinued 1 mg IVP X1 ONE LORazepam [Ativan Inj] Med 09/19/24 21:44 Discontinued 2 mg IVP X1 ONE Magnesium Sulfate 2 GM Ivpb [Magnesium Sulfate Ivpb] Med 09/19/24 21:44 Discontinued 2 gm in 50 ml IV X1 Multivitamin. Med 09/20/24 06:15 Discontinued 15 ml PO X1 ONE Sodium Chloride 0.9% 1000 ml [Ns] 1,000 ml Med 09/20/24 06:15 Active IV 150 mls/hr Sodium Chloride 0.9% 1000 ml [Ns] 2,000 ml Med 09/20/24 06:15 Active IV 999 mls/hr Thiamine Inj [Vitamin B-1 Inj] Med 09/19/24 21:44 Discontinued 100 mg IVP X1 ONE Thiamine Inj [Vitamin B-1 Inj] 100 mg Med 09/20/24 06:16 Active Sodium Chloride 0.9% [Ns] 100 ml IV X1 Vital Signs Vital signs: Vital Signs Temperature 98.7 F 09/19/24 21:25 Pulse Rate 98 09/19/24 21:25 Respiratory Rate 12 09/19/24 21:25 Blood Pressure 193/110 H 09/19/24 21:25 Pulse Oximetry (%) 99 09/19/24 21:25 Oxygen Delivery Method Nasal Cannula 09/19/24 21:25 Oxygen Flow Rate 2 09/19/24 21:25 [facility] Patient data External records reviewed:: [facility] previous records (Per chart review, patient was seen here yesterday for alcohol intoxication.) Clinical information provided by:: patient Social determinants that could affect healthcare access:: alcohol use Patient has the following chronic illnesses:: HTN How is presenting disease/condition affected by chronic disease/condition?: u neffected by Evaluation data The following diagnostics were reviewed and interpreted by me:: lab results and radiology exam(s) Lab and/or radiology exams considered but not ordered:: none Interpretation Summary: CBC is normal, PT and INR are normal, PTT is normal, D-Dimer is 854, Sodium is 148, Glucose is 131, Troponin is normal, Blood alcohol is 262.7, according to my interpretation. [facility] Report Signed Patient: CECY PINEDA. Record#: [id number] Birthdate: 1975 Age/Sex: 49 / M Location: [facility] Attending Dr: Ordering Physician: Zonia Myles MD Date of Service: 09/19/24 Procedure(s): CT head/brain wo con Accession Number(s): [id number] cc: Apolinar Ye MD; NO PRIMARY/FAMILY,PHYSICIAN; Zonia Myles MD~ Examination: CT brain head without contrast. 2-D sagittal coronal reconstructions Date and time of exam:September 19, 2024 2222 hrs. Comparison January 20, 2024 Indications: Dizziness episodes beginning 2 weeks ago CTDI: vol (mGy):56 DLP: (mGycm):1146 Technique: Multiple CT axial sections of the brain have been obtained, 5 mm slice thickness. Contrast has not been administered. 2-D sagittal, coronal reconstructions have been obtained Low dose protocols were performed. One or more of the following dose reduction techniques were used; automated exposure control, adjustment of the mA and/or KV according to patient size, use of iterative reconstruction technique. Findings: No significant ventricular enlargement. Intra-axial or extra-axial hemorrhage density is not seen. No mass effect or midline shift Basal cisterns are not remarkable. Fourth ventricle is midline. Cranial vault intact. Impression: Negative for acute hemorrhage, mass effect or midline shift Advise clinical correlation and follow-up accordingly Dictated By: Apolinar Ye MD Signed By: <Electronically signed by Apolinar Ye MD in [place]> 09/19/24 2245 Medications Medications considered but not ordered:: none Medication administrations:: Medication Administration History Sodium Chloride (Ns) 1,000 mls @ 150 mls/hr IV .Q6H40M ONE Stop: 09/20/24 12:54 Sodium Chloride (Ns) 2,000 mls @ 999 mls/hr IV .Q2H1M ONE Stop: 09/20/24 08:15 Thiamine HCl 100 mg/ Sodium (Chloride) 101 mls @ 202 mls/hr IV X1 ONE Stop: 09/20/24 06:45 Discontinued Medications Folic Acid (Folic Acid Inj 1 Mg/0.2 Ml) 1 mg IVP X1 ONE Stop: 09/19/24 21:45 Last Admin: 09/19/24 23:19 Dose: 1 mg Documented By: BROCK Folic Acid (Folic Acid 1 Mg Tablet) 1 mg PO X1 ONE Stop: 09/20/24 06:16 Magnesium Sulfate (Magnesium Sulfate Ivpb) 2 gm in 50 mls @ 25 mls/hr IV X1 ONE Stop: 09/19/24 23:43 Last Infusion: 09/20/24 00:39 Dose: Infused Documented By: Admin: 09/19/24 23:26 Dose: 25 mls/hr Documented By: BROCK Lorazepam (Lorazepam 2 Mg/Ml Vial) 2 mg IVP X1 ONE Stop: 09/19/24 21:45 Last Admin: 09/19/24 23:21 Dose: 2 mg Documented By: BROCK Multivitamins/Minerals (Multivitamin 15 Ml Udc) 15 ml PO X1 ONE Stop: 09/20/24 06:16 Thiamine HCl (Thiamine Inj 100 Mg/Ml Vial 2 Ml) 100 mg IVP X1 ONE Stop: 09/19/24 21:45 Last Admin: 09/19/24 23:20 Dose: 100 mg Documented By: BROCK see above Consultations Consultation(s) initiated? (list below): Yes Consultation #1 (Physician, Specialty, Details): Discussed case with Dr. Smith from Hospitalist service regarding admission. Discussed patients ED course, exam findings, labs, and radiology results. The Hospitalist states they will pass this case off to the day team. Time: 06:10 Diagnosis Differential Diagnosis ED Complaint MDM: alcohol withdrawal, alcohol intoxication, electrolyte abnormality Most likely diagnosis given after review of the tests above:: Other DDx: side effects from drinking, Wernicke's Final Dx: see clinical impression below Admission Indicated Admission indicated?: indicated Explain why admission is indicated or not indicated:: Signed out pending CT scan Admission Request Was there a request for admission?: Yes Admission Attestation Admission request attestation: Discussed case with [] from Hospitalist service regarding admission. Discussed patients ED course, exam findings, labs, and radiology results. The Hospitalist [agrees,declines] to accept the patient for admission. Disposition Plan Disposition Plan: other (specify) (Hospitalist will notify the day team of this patient. Dr. Reynolds was informed of this patient and his pending CTA of the chest.) Medical Decision Making MDM Narrative MDM Narrative: Scribe Attestation: 09/19/24 - Kelly Muñoz, am scribing for and in the presence of Dr. Almazan. 0550: I received a call from teleradiology, stating the patient has a probable PE. Differential Diagnosis Differential Diagnosis: alcohol withdrawal, alcohol intoxication, electrolyte abnormality Lab Data 09/19/24 22:06 09/19/24 22:06 Labs: Lab Results 09/19/24 Range/Units 22:06 WBC 8.1 (3.8-10.6) Thou/mm3 RBC 4.26 L (4.50-5.90) Miln/mm3 Hgb 11.8 L (13.5-16.0) g/dL Hct 36.2 L (41.0-53.0) % MCV 85 (80-100) fL MCH 27.7 (25.0-35.0) pg MCHC 32.6 (31.0-37.0) g/dl RDW Std Deviation 49.1 H (35.1-43.9) fL Plt Count 115 L (140-440) Thou/mm3 Neut % (Auto) 76 (37-80) % Lymph % (Auto) 12 (10-50) % Kimble % (Auto) 10 (0-12) % Eos % (Auto) 1 (0-10) % Baso % (Auto) 1 (0-2.5) % Neut # (Auto) 6.1 (1.8-7.7) Thou/mm3 Lymph # (Auto) 0.9 L (1.0-4.8) Thou/mm3 Kimble # (Auto) 0.8 (0.0-0.8) Thou/mm3 Eos # (Auto) 0.1 (0.0-0.5) Thou/mm3 Baso # (Auto) 0.1 (0.0-0.2) Thou/mm3 Immature Gran # (Auto) 0.03 H (0.00-0.00) Thou/mm3 Absolute Nucleated RBC 0.00 (0.00-0.00) Thou/mm3 Immature Gran % 0 (0-0) % Nucleated RBC % 0 (0) /100 WBC PT 11.9 (9.0-12.2) Seconds INR 1.1 (0.9-1.3) APTT 27.5 (22.0-36.0) Seconds D-Dimer 854 H (<600) ng/mL Sodium 148 H (136-145) mMol/L Potassium 3.6 D (3.4-5.1) mMol/L Chloride 110 H (98-107) mMol/L Carbon Dioxide 23.5 (20.0-31.0) mMol/L Anion Gap 15 (7-16) BUN 12 (9-23) mg/dL Creatinine 1.0 (0.6-1.3) mg/dL Estim Creat Clear Calc Not Performed. eGFR > 60 (60 - ) See Note BUN/Creatinine Ratio 12 (12-20) Ratio Glucose 131 H (74-106) mg/dL Calculated Osmolality 295 (275-295) Calcium 9.2 (8.3-10.6) mg/dL Corrected Calcium 9.2 (8.5-10.1) mg/dL Total Bilirubin 0.8 (0.3-1.2) mg/dL AST 267 H (0-34) U/L ALT 161 H (10-49) U/L Alkaline Phosphatase 351 H D (46-116) U/L Troponin I < 0.020 (0.0-0.045) ng/mL Total Protein 7.5 (5.7-8.2) gm/dL Albumin 4.3 (3.5-5.0) gm/dL Globulin 3.2 (2.3-3.5) gm/dL Albumin/Globulin Ratio 1.3 (1.2-2.2) Ethyl Alcohol 262.7 H (0-10.0) mg/dL Discharge Plan Prescriptions/Referrals Prescriptions/Med Rec: No Action hydrochlorothiazide 25 mg tablet 25 mg PO QAM Qty: 30 1RF lisinopril 20 mg tablet 20 mg PO QDAY Qty: 30 1RF Paxlovid 150 mg x 2- 100 mg tablet See Rx Instructions .ROUTE .COMPLEX Qty: 30 0RF Rx Instructions: take TWO 150 mg tablets of nirmatrelvir with ONE 100 mg tablet of ritonavir twice daily for 5 days amlodipine 10 mg tablet 10 mg PO QDAY Patient Comments: has not taken for 1 year potassium chloride 8 mEq capsule, extended release 8 meq PO QDAY Qty: 30 0RF ibuprofen 800 mg tablet 800 mg PO TID PRN (Reason: pain) Qty: 30 0RF ibuprofen 600 mg tablet 600 mg PO Q6H PRN (Reason: pain) Qty: 30 0RF hydrocodone-acetaminophen 5-325 mg tablet 1 tab PO Q6H MDD 9 PRN (Reason: pain) Qty: 15 0RF ibuprofen 600 mg tablet 600 mg PO Q6H PRN (Reason: pain) Qty: 30 0RF acetaminophen [Tylenol Extra Strength] 500 mg tablet 1,000 mg PO Q6H PRN (Reason: pain) Qty: 30 0RF lidocaine 5 % adhesive patch,medicated 1 patch topical QDAY PRN (Reason: pain) Qty: 15 0RF Rx Instructions: leave on most painful area for up to 12 hrs methocarbamol 500 mg tablet 1,000 mg PO Q8H PRN (Reason: muscle pain) Qty: 30 0RF ibuprofen 800 mg tablet 800 mg PO Q8H PRN (Reason: pain) Qty: 30 0RF Referrals: No Primary/Family,Physician [Primary Care Provider] - In 1 week Problem List Clinical Impression: Shortness of breath Patient/Caregiver Discharge Instructions Print Language: Maltese Stand Alone Forms: Mayuri Award Info., Patient Portal Info Letter
[2024-09-19 21:46] VITALS: BP 170/115; PULSE 97; RESP 16; O2SAT 95
--- NOTE | 2024-09-19 21:53 | XR_ITS ---
Examination: CT brain head without contrast. 2-D sagittal coronal reconstructions Date and time of exam:September 19, 2024 2222 hrs. Comparison January 20, 2024 Indications: Dizziness episodes beginning 2 weeks ago CTDI: vol (mGy):56 DLP: (mGycm):1146 Technique: Multiple CT axial sections of the brain have been obtained, 5 mm slice thickness. Contrast has not been administered. 2-D sagittal, coronal reconstructions have been obtained Low dose protocols were performed. One or more of the following dose reduction techniques were used; automated exposure control, adjustment of the mA and/or KV according to patient size, use of iterative reconstruction technique. Findings: No significant ventricular enlargement. Intra-axial or extra-axial hemorrhage density is not seen. No mass effect or midline shift Basal cisterns are not remarkable. Fourth ventricle is midline. Cranial vault intact. Impression: Negative for acute hemorrhage, mass effect or midline shift Advise clinical correlation and follow-up accordingly
[2024-09-19 22:30] LABS: INR 1.1 (0.9-1.3); Partial Thromboplastin Time 27.5 Seconds (22.0-36.0); Prothrombin Time 11.9 Seconds (9.0-12.2)
[2024-09-19 22:35] LABS: Alanine Aminotransferase 161 U/L (10-49); Albumin, Serum 4.3 gm/dL (3.5-5.0); Albumin/Globulin Ratio 1.3 (1.2-2.2); Alcohol, Blood Medical 262.7 mg/dL (0-10.0); Alkaline Phosphatase 351 U/L (46-116); Anion Gap 15 (7-16); Aspartate Amino Transferase 267 U/L (0-34); BUN/Creatinine Ratio 12 Ratio (12-20); Bilirubin,Total 0.8 mg/dL (0.3-1.2); Blood Urea Nitrogen 12 mg/dL (9-23); Calcium 9.2 mg/dL (8.3-10.6); Calcium (Corrected) 9.2 mg/dL (8.5-10.1); Carbon Dioxide 23.5 mMol/L (20.0-31.0); Chloride 110 mMol/L (98-107); Globulin 3.2 gm/dL (2.3-3.5); Glucose 131 mg/dL (74-106); Osmolality,Calculated 295 (275-295); Potassium 3.6 mMol/L (3.4-5.1); Sodium 148 mMol/L (136-145); Total Protein 7.5 gm/dL (5.7-8.2); Troponin I < 0.020 ng/mL (0.0-0.045); eGFR > 60 See Note
[2024-09-19 22:39] LABS: D-Dimer 854 ng/mL (<600)
[2024-09-19 22:47] LABS: Basophils # (Auto) 0.1 Thou/mm3 (0.0-0.2); Basophils % (Auto) 1 % (0-2.5); Eosinophils # (Auto) 0.1 Thou/mm3 (0.0-0.5); Eosinophils % (Auto) 1 % (0-10); Hematocrit 36.2 % (41.0-53.0); Hemoglobin 11.8 g/dL (13.5-16.0); Immature Granulocytes % (Auto) 0 % (0-0); Immature Granulocytes Auto 0.03 Thou/mm3 (0.00-0.00); Lymphocytes # (Auto) 0.9 Thou/mm3 (1.0-4.8); Lymphocytes % (Auto) 12 % (10-50); Mean Corpuscular HGB Conc 32.6 g/dl (31.0-37.0); Mean Corpuscular Hemoglobin 27.7 pg (25.0-35.0); Mean Corpuscular Volume 85 fL (80-100); Monocytes # (Auto) 0.8 Thou/mm3 (0.0-0.8); Monocytes % (Auto) 10 % (0-12); Neutrophils # (Auto) 6.1 Thou/mm3 (1.8-7.7); Neutrophils % (Auto) 76 % (37-80); Nucleated Red Blood Cell % 0 /100 WBC (0); Platelet Count 115 Thou/mm3 (140-440); RDW Standard Deviation 49.1 fL (35.1-43.9); Red Blood Count 4.26 Miln/mm3 (4.50-5.90); White Blood Count 8.1 Thou/mm3 (3.8-10.6)
[2024-09-19] MEDS: FOLIC ACID INJ 1 MG/0.2 ML IVP (23:19)
[2024-09-19] MEDS: THIAMINE INJ 100 MG/ML VIAL 2 ML IVP (23:20)
[2024-09-19] MEDS: LORazepam 2 MG/ML VIAL IVP (23:21)
[2024-09-19] MEDS: Magnesium Sulfate 2 GM Ivpb 2 GM/50 ML BAG IV (23:26)
[2024-09-20] VITALS (14 sets, daily range): BP systolic 141–195; BP diastolic 83–105; PULSE 76–104; RESP 16–100; TEMP 36.4–37.3; O2SAT 94–99; BMI 36.0
--- NOTE | 2024-09-20 04:01 | XR_ITS ---
Examination: CTA chest with intravenous contrast 2-D reconstructions 3-D reconstructions, vascular Date and time of exam: 09/20/2024, 1:32 AM INDICATION: Shortness of breath CTDI: vol (mGy) 12.5 DLP: (mGycm) 592 Technique: Multiple axial sections of the thorax have been obtained. 3 mm slice thickness, from below the hemidiaphragms to above the apices of the lungs. Mediastinal and lung density settings have been obtained. 2-D sagittal and coronal reconstructions. 3-D angiographic renderings, 3-D volume renderings, 3D post processing, vascular maximum intensity projections obtained. Low dose protocols were performed. One or more of the following dose reduction techniques were used; automated exposure control, adjustment of the mA and/or KV according to patient size, use of iterative reconstruction technique. Findings: Limited opacification the pulmonary arterial system due to contrast bolus timing. Study is nondiagnostic for pulmonary embolism. Lungs otherwise clear without focal mass or infiltrate. Heart size pulmonary vascular structures appear unremarkable. No pneumothorax or pleural effusion. No acute bony abnormality. IMPRESSION: Study nondiagnostic for pulmonary embolism as above. No focal mass or infiltrate.
--- NOTE | 2024-09-20 07:08 | EDNOTE_ITS ---
Emergency Room Addendum <Niyah Pardo - Last Filed: 09/20/24 11:37> Addendum Narrative: 0600: Care assumed from Dr. Myles, the previous shift emergency physician. Past medical, surgical, social and family history reviewed. Vitals and home medications reviewed. I will assume the care of the patient at this time, pending CTA chest and final disposition. Please refer to the emergency department record for history and examination from initial visit.?The following addendum documentation note is intended to reflect any pending information, findings, or radiology results not included in the patient?s initial chart. EMS notes reviewed by me. Nursing notes reviewed by me. Vital signs reviewed by me. [facility] records reviewed by me. 0710: Patient complains of feeling hot, nasal congestion, sneezing, coughing. Patient admits to drinking a couple pints of Vodka or Rum a day and last drank yesterday evening. Hx of alcohol withdrawals and feels he may be withdrawing today. Patient states he last took his blood pressure medication 4 days ago. 0828: Teleradiologist called to discuss CTA chest results. 1136: I spoke with hospitalist Dr. Hayes. Discussed patients PMHx, HPI, ED course, exam findings, labs, and radiology results. The hospitalist agree to accept the patient for admission. RADIOLOGY Ordering Physician: Zonia Myles MD Date of Service: 09/20/24 Procedure(s): CT angio chest Accession Number(s): [id number] cc: Ulisses Hope MD; NO PRIMARY/FAMILY,PHYSICIAN; Zonia Myles MD~ Examination: CTA chest with intravenous contrast 2-D reconstructions 3-D reconstructions, vascular Date and time of exam: 09/20/2024, 1:32 AM INDICATION: Shortness of breath CTDI: vol (mGy) 12.5 DLP: (mGycm) 592 Technique: Multiple axial sections of the thorax have been obtained. 3 mm slice thickness, from below the hemidiaphragms to above the apices of the lungs. Mediastinal and lung density settings have been obtained. 2-D sagittal and coronal reconstructions. 3-D angiographic renderings, 3-D volume renderings, 3D post processing, vascular maximum intensity projections obtained. Low dose protocols were performed. One or more of the following dose reduction techniques were used; automated exposure control, adjustment of the mA and/or KV according to patient size, use of iterative reconstruction technique. Findings: Limited opacification the pulmonary arterial system due to contrast bolus timing. Study is nondiagnostic for pulmonary embolism. Lungs otherwise clear without focal mass or infiltrate. Heart size pulmonary vascular structures appear unremarkable. No pneumothorax or pleural effusion. No acute bony abnormality. IMPRESSION: Study nondiagnostic for pulmonary embolism as above. No focal mass or infiltrate. Dictated By: Ulisses Hope MD Signed By: <Electronically signed by Ulisses Hope MD in OV> 09/20/24 0809 <John Reynolds MD - Last Filed: 09/20/24 11:51> Addendum Narrative: 0600: Care assumed from Dr. Myles, the previous shift emergency physician. Past medical, surgical, social and family history reviewed. Vitals and home medications reviewed. I will assume the care of the patient at this time, pending CTA chest and final disposition. Please refer to the emergency department record for history and examination from initial visit.?The following addendum documentation note is intended to reflect any pending information, findings, or radiology results not included in the patient?s initial chart. EMS notes reviewed by me. Nursing notes reviewed by me. Vital signs reviewed by me. [facility] medical records reviewed by me. 0710: Patient complains of feeling hot, nasal congestion, sneezing, coughing. Patient admits to drinking a couple pints of Vodka or Rum a day and last drank yesterday evening. Hx of alcohol withdrawals and feels he may be withdrawing today. Patient states he last took his blood pressure medication 4 days ago. 0828: Teleradiologist called to discuss CTA chest results. 1136: I spoke with hospitalist Dr. Hayes. Discussed patients PMHx, HPI, ED course, exam findings, labs, and radiology results. The hospitalist agree to accept the patient for admission. No we observed this patient all morning long and the patient clearly is going to alcohol withdrawal as no surprise. Besides weakness the patient was complaining of shortness of breath was triggered CT scan unfortunate was an inadequate study and PE cannot because there was an inadequate contrast perfusion. Clinically not believe this patient has a PE I think he is withdrawing that all the symptoms point that direction. Patient be admitted to Dr. Marshall the hospitalist history of alcohol abuse dehydration hypernatremia and note the patient received 2 L of fluid under my watch and will need further workup and follow-up. Does the multiple reevaluations and complexity will make this a critical care patient Critical care 40 minutes for multiple rechecks for increasing tremulousness tachycardia but no hallucinations as of 1150 hrs. The high probability of sudden, clinically significant deterioration in the patient's condition required the highest level of my preparedness to intervene urgently. The services I provided to this patient were to treat and/or prevent clinically significant deterioration. Services included the following: chart data review, reviewing nursing notes and/or old charts, documentation time, national sales consultant collaboration regarding findings and treatment options, medication orders and management, direct patient care, vital sign assessments and ordering, interpreting and reviewing diagnostic studies and lab tests. Aggregate critical care time includes only time during which I was engaged in work directly related to the patient's care, as described above, whether at bedside or elsewhere in the Emergency Department. It did not include time spent performing other reported procedures or the services of residents, students, nurses or physician assistants. He got another dose of Ativan 2 mg. RADIOLOGY Ordering Physician: Zonia Myles MD Date of Service: 09/20/24 Procedure(s): CT angio chest Accession Number(s): [id number] cc: Ulisses Hope MD; NO PRIMARY/FAMILY,PHYSICIAN; Zonia Myles MD~ Examination: CTA chest with intravenous contrast 2-D reconstructions 3-D reconstructions, vascular Date and time of exam: 09/20/2024, 1:32 AM INDICATION: Shortness of breath CTDI: vol (mGy) 12.5 DLP: (mGycm) 592 Technique: Multiple axial sections of the thorax have been obtained. 3 mm slice thickness, from below the hemidiaphragms to above the apices of the lungs. Mediastinal and lung density settings have been obtained. 2-D sagittal and coronal reconstructions. 3-D angiographic renderings, 3-D volume renderings, 3D post processing, vascular maximum intensity projections obtained. Low dose protocols were performed. One or more of the following dose reduction techniques were used; automated exposure control, adjustment of the mA and/or KV according to patient size, use of iterative reconstruction technique. Findings: Limited opacification the pulmonary arterial system due to contrast bolus timing. Study is nondiagnostic for pulmonary embolism. Lungs otherwise clear without focal mass or infiltrate. Heart size pulmonary vascular structures appear unremarkable. No pneumothorax or pleural effusion. No acute bony abnormality. IMPRESSION: Study nondiagnostic for pulmonary embolism as above. No focal mass or infiltrate. Dictated By: Ulisses Hope MD Signed By: <Electronically signed by Ulisses Fafinski, MD in [place]> 04/11/25 0809
[2024-09-20 07:10] LABS: Lactate (Lactic Acid) 0.8 mMol/L (0.4-2.0)
[2024-09-20] MEDS: hydrALAZINE INJ 20 MG/ML VIAL 10 MG IV ×2 (07:39→16:52)
[2024-09-20] MEDS: THIAMINE INJ 100 MG in SODIUM CHLORIDE 0.9% 100 ML 202 MG IV (07:40)
[2024-09-20] MEDS: SODIUM CHLORIDE 0.9% 1000 ML 2,000 ML 999 ML IV (07:40)
[2024-09-20] MEDS: hydroCHLOROthiazide 12.5 MG CAPSULE 25 MG PO (07:42)
[2024-09-20] MEDS: Lisinopril 20 MG TABLET PO (07:42)
[2024-09-20] MEDS: amLODIPine BESYLATE 5 MG TABLET 10 MG PO (07:42)
[2024-09-20] MEDS: FOLIC ACID 1 MG TABLET PO ×2 (07:43→20:05)
[2024-09-20] MEDS: SODIUM CHLORIDE 0.9% 1000 ML 1,000 ML 150 ML IV (08:50)
--- NOTE | 2024-09-20 08:55 | PRELIM_ITS ---
CT angiogram of the chest with intravenous contrast (axial sections with sagittal and coronal reformats) September 20, 2024 AT 0432 hours Clinical History: Shortness of breath. Technique:Helical axial sections with sagittal and coronal reformats of the chest were obtained with intravenous contrast. Iterative reconstruction technique was employed to reduce patient radiation exposure. 3D/MIP reconstructed images were also provided. Comparison: No prior study is available for comparison. Findings: There are probable pulmonary artery emboli involving the subsegmental right upper lobe pulmonary arteries, (images [id number]). RV/LV ratio is normal. No pericardial effusion is seen. No pleural effusion. The heart size is normal. Main pulmonary artery caliber is mildly enlarged, suggesting pulmonary artery hypertension. There is no mediastinal, hilar or axillary adenopathy. No aortic aneurysm or dissection. No pneumothorax. No acute osseous process. The chest wall is unremarkable. Cholelithiasis. Impression: 1. Probable subsegmental right upper lobe pulmonary artery emboli. 2. Pulmonary artery hypertension. 3. Cholelithiasis. Discussion Details: Results Discussed With : Dr Reynolds at 08:44 AM 09/20/2024 Report Electronically Signed By: Ulisses Fontaine 09/20/2024 8:54:56 AM [EST]
--- NOTE | 2024-09-20 10:17 | PC.NURSE ---
Pt is requesting that daughter who is listed as next of Kin be changed to Person to notify, and sister be changed to next of kin. Pt understands that that means we will discuss everything with dtr if she asks and he is ok with that
[2024-09-20] MEDS: LORazepam 2 MG/ML VIAL IVP (12:00)
[2024-09-20 12:18] LABS: Base Excess, Venous 4 (-3-3); O2 Saturation, Venous 101 % (96-97); PCO2, Venous 29 mmHg (36-56); PO2, Venous 147 mmHg (15-58); pH, Venous 7.55 (7.33-7.66)
[2024-09-20 12:19] LABS: Lactate (Lactic Acid) 1.1 mMol/L (0.4-2.0)
[2024-09-20] MEDS: PANTOPRAZOLE INJ 40 MG VIAL IVP (13:40)
[2024-09-20] MEDS: chlordiazePOXIDE HCl 25 MG CAPSULE PO ×2 (14:04→21:45)
--- NOTE | 2024-09-20 15:04 | PD.ADDHP ---
Addendum History & Physical Addendum Date of report being addended: 09/20/24 Narrative: Attending's attestation: I reviewed labs, imaging, EKG, home medications and prior available records. Face to face evaluation was performed by me. I have personally examined the patient and discussed assessment and plan with the IM team. I reviewed the resident note and agree with the plan with exceptions as below. Alcohol abuse Alcohol withdrawal Transaminitis Hyponatremia Start CIWA protocol Start thiamine folic acid Counseled the patient regarding the importance of alcohol cessation Monitor BMP
[2024-09-20] MEDS: RINGERS LACTATED 1000 ML 1,000 ML 100 ML IV (15:34)
--- NOTE | 2024-09-20 16:15 | PC.NURSE ---
Attempted to call pt's POC dtr Milan, unable to contact. Therefore I called his sister, Angeles, who had been here visiting and was originally the POC. I informed her what room the pt went to and she stated she would contact Milan. I had also discussed the possibility of needing to contact Angeles if I couldn't contact Milan, so that the family will know his location, and Anthony said that would be fine and that the two women had a good relationship and would communicate with each other
--- NOTE | 2024-09-20 16:43 | ESHP_ITS ---
Documentation for date of: 09/20/24 HPI History of Present Illness Chief complaint: Alcohol withdrawal History of present illness: Mr. Mauro is a 46-year-old male with history of hypertension, alcohol use and methamphetamine presented to [facility] emergency department on 09/19/2024 with a complaint of generally feeling unwell for about 2 weeks. Patient complained of feeling weak and sick, reports that his last drink was about 24 to 48 hours ago, reported drinking about a gallon of vodka on a daily basis, reported that he wants to quit drinking. Currently patient noted to be anxious, tremulous shaking and seems to be withdrawing actively from alcohol, CIWA score around 19. Patient reported that he used methamphetamine about 3 weeks ago, admits to use of methamphetamine as well. Of note patient was in the ED earlier on the morning of 09/19/2024 with a chief complaint of not feeling well. Patient reports that he has been feeling weak, reports drinking alcohol about a gallon of vodka on a daily basis for over a year. Patient requested admission to assist with his alcohol problem in the emergency department denies any, patient CT scan in the emergency department was significant for fluid-filled tubular structure, enlarged medial cecum consistent with acute appendicitis, patient was evaluated by general surgeon department, appendicitis was ruled out clinically and was discharged Otherwise patient currently denies any shortness of breath, chest pain and headache. ED Course: ED Vitals: On presentation blood pressure 193/110, heart rate 98, respiratory rate 12, temp 98.7, O2 sat 99 on 2 L nasal cannula ED Labs: ED labs significant for hemoglobin 11.8, RBC 4.26, hematocrit 36.2, platelet count 115, D-dimer 854, pCO2 29, sodium 148, chloride-10, glucose 131, AST 267 ALT 161 alk phos 351 blood alcohol level 262.7 ED Imaging: Chest CTA nondiagnostic for PE, CT scan of the head unremarkable ED Treatment: Patient was given folic acid, thiamine, Ativan, magnesium, multivitamin, hydralazine, 2 L NS bolus, thiamine IV, p.o. lisinopril x 1, amlodipine 10 p.o. x 1, hydrochlorothiazide 25 p.o. x 1 and maintenance fluids in ED Review of Systems Review of Systems Narrative Review of Systems: ROS: -CONSTITUTIONAL: Denies weight loss, fever and chills. -HEENT: Denies changes in vision and hearing. -RESPIRATORY: Denies SOB and cough. -CV: Denies palpitations and Chest Pain. -GI: Denies abdominal pain, nausea, vomiting,constipation and diarrhea. -: Denies dysuria and urinary frequency. -MSK: Denies myalgia and joint pain. -SKIN: Denies rash and pruritus. -NEUROLOGICAL: Denies headache and syncope. -PSYCHIATRIC: Denies recent changes in mood. Denies anxiety and depression. Positive for alcohol use. Past Medical History Past Medical History Comments PMH COMMENT: PMH: Positive for hypertension, alcohol use and methamphetamine use PSHx: Denies Allergies: Denies Social history: -Smoking: Denies -Alcohol Use: Positive, reports drinking a gallon -Illicit Drug Use: Positive for methamphetamine. Family History: denies pertinent family history Exam Vital Signs Temp Pulse Resp BP Pulse Ox O2 Del Method O2 Flow Rate 98.8 F 83 18 141/83 H 99 Room Air 1 09/20/24 14:43 09/20/24 14:44 09/20/24 14:44 09/20/24 14:43 09/20/24 14:43 09/20/24 14:43 09/20/24 14:44 Narrative Exam Physical Exam General: Awake and in no acute distress. Conversational and non-toxic appearing. HEENT: Normocephalic, atraumatic, mucous membranes moist. Heart: Regular rate and rhythm, no murmurs. Lungs: Clear to auscultation with no wheezing or crackles. Abdomen: Soft, nondistended, nontender, positive bowel sounds. ?No guarding or rebound tenderness. Neurologic: Alert and oriented x3, no gross neurological deficit, and patient able to move all 4 extremities. Agitated, tremulous and restless. Extremities: No edema. Skin: No rash or ecchymoses. Results: Labs 09/21/24 04:57 09/21/24 04:57 Labs: Short CBC 09/19/24 Range/Units 22:06 WBC 8.1 (3.8-10.6) Thou/mm3 Hgb 11.8 L (13.5-16.0) g/dL Hct 36.2 L (41.0-53.0) % Plt Count 115 L (140-440) Thou/mm3 BMP 09/19/24 22:06 Sodium 148 H Potassium 3.6 D Chloride 110 H Carbon Dioxide 23.5 BUN 12 Creatinine 1.0 Glucose 131 H Calcium 9.2 Cardiac Enzymes 09/19/24 Range/Units 22:06 Troponin I < 0.020 (0.0-0.045) ng/mL Liver Function 09/19/24 Range/Units 22:06 Total Bilirubin 0.8 (0.3-1.2) mg/dL AST 267 H (0-34) U/L ALT 161 H (10-49) U/L Alkaline Phosphatase 351 H D (46-116) U/L Albumin 4.3 (3.5-5.0) gm/dL ABG Interpretation ABG results: 09/20/24 12:05 VBG pH 7.55 VBG pCO2 29 L VBG pO2 147 H VBG Base Excess 4 H Quality Measures Quality Measures none Medications Home Medications and Allergies Home Medications ?Medication ?Instructions ?Recorded ?Confirmed ?Type amlodipine 10 mg tablet 10 mg PO QDAY 07/08/2111/17 History amlodipine 5 mg tablet 5 mg PO DAILY 09/20/2409/20 History Allergies Allergy/AdvReac Type Severity Reaction Status Date / Time No Known Allergies Allergy Verified 09/19/24 21:27 Visit Medications Acetaminophen (Acetaminophen 325 Mg Tablet) 325 mg PO Q6H PRN PRN Reason: Pain (1-3) and Fever >100.4 Stop: 10/20/24 12:27 Chlordiazepoxide HCl (Chlordiazepoxide Hcl 25 Mg Capsule) 25 mg PO TID ROYER Stop: 09/25/24 13:59 Last Admin: 09/20/24 14:04 Dose: 25 mg Folic Acid (Folic Acid 1 Mg Tablet) 1 mg PO BID ROYER Stop: 09/25/24 20:59 Heparin Sodium (Porcine) (Heparin Sod Inj 5000 Unit/Ml Vial) 5,000 unit SC Q12H ROYER Stop: 10/04/24 21:59 Hydralazine HCl (Hydralazine Inj 20 Mg/Ml Vial) 10 mg IV Q4H PRN PRN Reason: hypertension Stop: 10/20/24 16:33 Lactated Ringer's (Lactated Ringers) 1,000 mls @ 100 mls/hr IV .Q10H ROYER Stop: 10/20/24 15:05 Last Admin: 09/20/24 15:34 Dose: 100 mls/hr Lorazepam (Lorazepam 2 Mg/Ml Vial) 0.5 mg IV Q2HR PRN PRN Reason: CIWA SCORE 8-13 Stop: 09/25/24 12:33 Lorazepam (Lorazepam 2 Mg/Ml Vial) 1 mg IV Q2HR PRN PRN Reason: CIWA SCORE 14-19 Stop: 09/25/24 12:33 Lorazepam (Lorazepam 2 Mg/Ml Vial) 2 mg IV Q2HR PRN PRN Reason: CIWA SCORE 20-25 Stop: 09/25/24 12:33 Lorazepam (Lorazepam 2 Mg/Ml Vial) 2 mg IVP X1 PRN PRN Reason: Breakthrough Agitation Ondansetron HCl (Ondansetron Inj 2 Mg/Ml Inj 2 Ml) 4 mg IV Q6H PRN; Protocol PRN Reason: NAUSEA OR VOMITING Stop: 10/20/24 12:31 Pantoprazole Sodium (Pantoprazole Inj 40 Mg Vial) 40 mg IVP QDAY [facility] Stop: 10/20/24 12:44 Last Admin: 09/20/24 13:40 Dose: 40 mg Sennosides (Senna Tablet) 1 tab PO QDAY PRN; Protocol PRN Reason: constipation Stop: 10/20/24 12:31 Thiamine HCl (Thiamine 100 Mg Tablet) 100 mg PO BID [facility] Stop: 09/25/24 20:59 Discontinued Medications Amlodipine Besylate (Amlodipine Besylate 5 Mg Tablet) 10 mg PO X1 ONE Stop: 09/20/24 07:08 Last Admin: 09/20/24 07:42 Dose: 10 mg Folic Acid (Folic Acid Inj 1 Mg/0.2 Ml) 1 mg IVP X1 ONE Stop: 09/19/24 21:45 Last Admin: 09/19/24 23:19 Dose: 1 mg Folic Acid (Folic Acid 1 Mg Tablet) 1 mg PO X1 ONE Stop: 09/20/24 06:16 Last Admin: 09/20/24 07:43 Dose: 1 mg Hydralazine HCl (Hydralazine Inj 20 Mg/Ml Vial) 10 mg IV X1 ONE Stop: 09/20/24 07:06 Last Admin: 09/20/24 07:39 Dose: 10 mg Hydralazine HCl (Hydralazine Inj 20 Mg/Ml Vial) 10 mg IM X1 ONE Stop: 09/20/24 14:33 Last Admin: 09/20/24 16:05 Dose: Not Given Hydralazine HCl (Hydralazine Inj 20 Mg/Ml Vial) 10 mg IV X1 ONE Stop: 09/20/24 15:24 Last Admin: 09/20/24 16:04 Dose: Not Given Hydrochlorothiazide (Hydrochlorothiazide 12.5 Mg Capsule) 25 mg PO X1 ONE Stop: 09/20/24 07:08 Last Admin: 09/20/24 07:42 Dose: 25 mg Magnesium Sulfate (Magnesium Sulfate Ivpb) 2 gm in 50 mls @ 25 mls/hr IV X1 ONE Stop: 09/19/24 23:43 Last Infusion: 09/20/24 00:39 Dose: Infused Sodium Chloride (Ns) 1,000 mls @ 150 mls/hr IV .Q6H40M ONE Stop: 09/20/24 12:54 Last Infusion: 09/20/24 15:31 Dose: Infused Sodium Chloride (Ns) 2,000 mls @ 999 mls/hr IV .Q2H1M ONE Stop: 09/20/24 08:15 Last Infusion: 09/20/24 09:41 Dose: Infused Thiamine HCl 100 mg/ Sodium (Chloride) 101 mls @ 202 mls/hr IV X1 ONE Stop: 09/20/24 06:45 Last Infusion: 09/20/24 08:56 Dose: Infused Lisinopril (Lisinopril 20 Mg Tablet) 20 mg PO X1 ONE Stop: 09/20/24 07:08 Last Admin: 09/20/24 07:42 Dose: 20 mg Lorazepam (Lorazepam 2 Mg/Ml Vial) 2 mg IVP X1 ONE Stop: 09/19/24 21:45 Last Admin: 09/19/24 23:21 Dose: 2 mg Lorazepam (Lorazepam 2 Mg/Ml Vial) 2 mg IVP X1 ONE Stop: 09/20/24 11:37 Last Admin: 09/20/24 12:00 Dose: 2 mg Multivitamins/Minerals (Multivitamin 15 Ml Udc) 15 ml PO X1 ONE Stop: 09/20/24 06:16 Last Admin: 09/20/24 07:20 Dose: Not Given Thiamine HCl (Thiamine Inj 100 Mg/Ml Vial 2 Ml) 100 mg IVP X1 ONE Stop: 09/19/24 21:45 Last Admin: 09/19/24 23:20 Dose: 100 mg Assessment & Plan Plan Assessment and plan: Summary: Mr. Mauro is a 46-year-old male with history of hypertension, alcohol use and methamphetamine presented to [facility] emergency department on 09/19/2024 with a complaint of generally feeling unwell for about 2 weeks patient admitted for further management of alcohol withdrawal #Alcohol dependence with withdrawal #Methamphetamine dependence #Polysubstance dependence Patient complained of feeling weak and sick, reports that his last drink was about 24 to 48 hours ago, reported drinking about a gallon of vodka on a daily basis, reported that he wants to quit drinking. Has history of alcohol and meth use Patient noted to be anxious, tremulous shaking and seems to be withdrawing actively from alcohol, CIWA score around 19. Reported that he used methamphetamine about 3 weeks ago, admits to use of methamphetamine as well. Blood alcohol level 262.7 on presentation Plan: - CIWA protocol, IV Ativan as needed - Started on Librium 25 mg 3 times daily - P.o. folate thiamine and multivitamin -IV Protonix - Zofran as needed for nausea/vomiting #Alcohol-related liver disease #Transaminitis #Thrombocytopenia Patient has transaminitis, AST to ALT ratio greater than 2 used to work, consistent with alcohol use, per review of labs patient has chronic transaminitis high suspicion of secondary to alcohol use Patient platelet count 115, INR 1.1 bilirubin within normal limits [facility] function score for alcoholic hepatitis 14.1 points, no steroids indicated Plan: - Trend LFTs - Monitor INR in a.m. - Follow CBC - Patient advised to refrain from alcohol use #Hyponatremia #Hypochloremia Sodium 148 Chloride 110 on presentation, patient appears hypovolemic Plan: - IV maintenance LR #Hypertension Patient has history of hypertension on hydrochlorothiazide 25 mg and amlodipine 5 mg at home Resume home medication #Concern for PE, rule out CTA was nondiagnostic, low suspicion of PE, did have elevated D-dimer, otherwise respiratory status is stable DVT prophylaxis: Heparin subcutaneous GI prophylaxis: IV Protonix Diet: Low-sodium diet Lines: Peripheral IV Code status: Full code Case discussed with Attending Dr. Hayes. Jennifer Freedman PGY1 Disclaimer: This note was dictated by speech recognition. Minor errors in software engineer mobile may be present due to voice recognition software. Attending Provider Attestation/Addendum I reviewed labs, imaging, EKG, home medications and prior available records. Face to face evaluation was performed by me. I have personally examined the patient and discussed assessment and plan with the IM team. I reviewed the resident note and agree with the plan with exceptions as below. See my addendum for the same date of service
[2024-09-20] MEDS: ONDANSETRON INJ 2 MG/ML INJ 2 ML 4 MG IV (20:05)
[2024-09-20] MEDS: THIAMINE 100 MG TABLET PO (20:05)
[2024-09-20] MEDS: LORazepam 2 MG/ML VIAL 0.5 MG IV (20:05)
[2024-09-20] MEDS: HEPARIN SOD INJ 5000 UNIT/ML VIAL SC (21:45)
[2024-09-21] VITALS (10 sets, daily range): BP systolic 129–177; BP diastolic 84–99; PULSE 66–91; RESP 13–99; TEMP 36.2–36.9; O2SAT 96–98; BMI 36.0
[2024-09-21] MEDS: ONDANSETRON INJ 2 MG/ML INJ 2 ML 4 MG IV ×2 (04:16→10:42)
[2024-09-21] MEDS: RINGERS LACTATED 1000 ML 1,000 ML 100 ML IV ×2 (04:17→18:02)
[2024-09-21] MEDS: LORazepam 2 MG/ML VIAL 0.5 MG IV ×2 (04:17→19:35)
[2024-09-21] MEDS: ACETAMINOPHEN 325 MG TABLET 650 MG PO ×2 (04:32→19:14)
[2024-09-21 05:31] LABS: Basophils % (Auto) 0 % (0-2.5); Eosinophils # (Auto) 0.1 Thou/mm3 (0.0-0.5); Eosinophils % (Auto) 2 % (0-10); Hematocrit 35.2 % (41.0-53.0); Hemoglobin 11.2 g/dL (13.5-16.0); Immature Granulocytes % (Auto) 0 % (0-0); Immature Granulocytes Auto 0.03 Thou/mm3 (0.00-0.00); Lymphocytes # (Auto) 0.6 Thou/mm3 (1.0-4.8); Lymphocytes % (Auto) 9 % (10-50); Mean Corpuscular HGB Conc 31.8 g/dl (31.0-37.0); Mean Corpuscular Hemoglobin 27.7 pg (25.0-35.0); Mean Corpuscular Volume 87 fL (80-100); Monocytes # (Auto) 0.5 Thou/mm3 (0.0-0.8); Monocytes % (Auto) 7 % (0-12); Neutrophils # (Auto) 5.7 Thou/mm3 (1.8-7.7); Neutrophils % (Auto) 82 % (37-80); Nucleated Red Blood Cell % 0 /100 WBC (0); Platelet Count 89 Thou/mm3 (140-440); RDW Standard Deviation 49.7 fL (35.1-43.9); Red Blood Count 4.05 Miln/mm3 (4.50-5.90)
[2024-09-21 06:00] LABS: Alanine Aminotransferase 110 U/L (10-49); Albumin, Serum 3.9 gm/dL (3.5-5.0); Albumin/Globulin Ratio 1.4 (1.2-2.2); Alkaline Phosphatase 327 U/L (46-116); Anion Gap 9 (7-16); Aspartate Amino Transferase 163 U/L (0-34); BUN/Creatinine Ratio 13 Ratio (12-20); Bilirubin,Total 1.8 mg/dL (0.3-1.2); Blood Urea Nitrogen 10 mg/dL (9-23); Calcium (Corrected) 9.1 mg/dL (8.5-10.1); Carbon Dioxide 27.8 mMol/L (20.0-31.0); Cardiac Risk Estimate 2.5 RATIO (4.0-6.7); Chloride 101 mMol/L (98-107); Cholesterol 236 mg/dL (132-200); Creatinine (Component) 0.8 mg/dL (0.6-1.3); Estimated Creatinine Clearance 129.9 mL/min (>60); Globulin 2.8 gm/dL (2.3-3.5); Glucose 107 mg/dL (74-106); HDL Cholesterol 93 mg/dL (40-60); LDL Cholesterol,Calculated 113 mg/dL (0-130); Magnesium 1.5 mg/dL (1.6-2.6); Osmolality,Calculated 274 (275-295); Phosphorous 2.8 mg/dL (2.4-5.1); Potassium 3.3 mMol/L (3.4-5.1); Sodium 138 mMol/L (136-145); Total Protein 6.7 gm/dL (5.7-8.2); Triglycerides 151 mg/dL (30-150); eGFR > 60 See Note
[2024-09-21 06:06] LABS: INR 1.1 (0.9-1.3); Prothrombin Time 12.2 Seconds (9.0-12.2)
[2024-09-21] MEDS: chlordiazePOXIDE HCl 25 MG CAPSULE PO ×3 (06:06→21:07)
[2024-09-21] MEDS: POTASSIUM CHLORIDE 10% 20 MEQ/15 ML UDC 40 MEQ PO (08:10)
[2024-09-21] MEDS: Magnesium Sulfate 4 GM Ivpb 4 GM/50 ML BAG IV (08:10)
[2024-09-21] MEDS: PANTOPRAZOLE INJ 40 MG VIAL IVP (08:10)
[2024-09-21] MEDS: FOLIC ACID 1 MG TABLET PO ×2 (08:11→21:07)
[2024-09-21] MEDS: amLODIPine BESYLATE 5 MG TABLET PO (08:11)
[2024-09-21] MEDS: hydroCHLOROthiazide 12.5 MG CAPSULE 25 MG PO (08:11)
[2024-09-21] MEDS: THIAMINE 100 MG TABLET PO ×2 (08:12→21:07)
[2024-09-21] MEDS: HEPARIN SOD INJ 5000 UNIT/ML VIAL SC ×2 (09:54→21:06)
--- NOTE | 2024-09-21 10:44 | PC.SS ---
This is 49-year-old, male who presented to the ED for alcohol withdrawals. Patient appeared alert and oriented to self, place and situation. Patient was pleasant, his mood and behavior were ordinary. Patient's thought process was logical and linear. Patient verified his home address and phone number. He reported that he resides with his sisters at home. Prior to admission, patient was having issues with ambulation, falls and weakness to lower extremities. Patient reported that his last drink was three days ago. Prior to that, patient self reported drinking a gallon of vodka per day. Patient reported that he was discharged from [facility] in June of 2024. However, a few days later he relapsed. Patient assigned his daughter, Milan, as his medical emergency contact. Patient's PCP is [facility]. Patient was provided with options for discharge. Patient requested that follow up with him at a later time.
--- NOTE | 2024-09-21 11:39 | ESPR_ITS ---
Documentation for date of: 09/21/24 Subjective Subjective Interval history: Patient seen and examined at bedside. Patient continues to have symptoms of alcohol withdrawal. CIWA Score 9 this morning will continue Ativan and Librium. Patient's potassium and magnesium was replaced in AM. Lipid profile consistent with Hypercholestrolemia. Will hold starting statin consideringpatient has transaminitis. Exam Vital Signs Temp Pulse Resp BP Pulse Ox O2 Del Method O2 Flow Rate 97.4 F 85 17 159/98 H 98 Nasal Cannula 2 09/21/24 08:00 09/21/24 08:11 09/21/24 08:00 09/21/24 08:11 09/21/24 08:00 09/21/24 08:00 09/21/24 04:00 Narrative Exam Physical Exam General: Awake and in no acute distress. Conversational and non-toxic appearing. HEENT: Normocephalic, atraumatic, mucous membranes moist. Heart: Regular rate and rhythm, no murmurs. Lungs: Clear to auscultation with no wheezing or crackles. Abdomen: Soft, nondistended, nontender, positive bowel sounds. ?No guarding or rebound tenderness. Neurologic: Alert and oriented x3, no gross neurological deficit, and patient able to move all 4 extremities. Agitated, tremulous and restless. Extremities: No edema. Skin: No rash or ecchymoses. Objective Labs 09/23/24 05:17 09/23/24 05:17 Labs: Laboratory Results - last 24 hr 09/20/24 09/21/24 12:05 04:57 WBC 7.0 RBC 4.05 L Hgb 11.2 L Hct 35.2 L MCV 87 MCH 27.7 MCHC 31.8 RDW Std Deviation 49.7 H Plt Count 89 L D Neut % (Auto) 82 H Lymph % (Auto) 9 L [place] % (Auto) 7 Eos % (Auto) 2 Baso % (Auto) 0 Neut # (Auto) 5.7 Lymph # (Auto) 0.6 L [place] # (Auto) 0.5 Eos # (Auto) 0.1 Baso # (Auto) 0.0 Immature Gran # (Auto) 0.03 H Absolute Nucleated RBC 0.00 Immature Gran % 0 Nucleated RBC % 0 PT 12.2 INR 1.1 VBG pH 7.55 VBG pCO2 29 L VBG pO2 147 H VBG O2 Sat (Sandie) 101 H VBG Base Excess 4 H Sodium 138 D Potassium 3.3 L Chloride 101 Carbon Dioxide 27.8 Anion Gap 9 BUN 10 Creatinine 0.8 Estim Creat Clear Calc 129.9 eGFR > 60 BUN/Creatinine Ratio 13 Glucose 107 H Calculated Osmolality 274 L Lactic Acid 1.1 Calcium 9.0 Corrected Calcium 9.1 Phosphorus 2.8 Magnesium 1.5 L Total Bilirubin 1.8 H D AST 163 H ALT 110 H Alkaline Phosphatase 327 H D Total Protein 6.7 Albumin 3.9 Globulin 2.8 Albumin/Globulin Ratio 1.4 Triglycerides 151 H Cholesterol 236 H LDL Cholesterol, Calc 113 HDL Cholesterol 93 H Cholesterol/HDL Ratio 2.5 L ABG Interpretation ABG results: 09/20/24 12:05 VBG pH 7.55 VBG pCO2 29 L VBG pO2 147 H VBG Base Excess 4 H Quality Measures Quality Measures none Assessment & Plan Assessment Current Active Medications: Generic Name Dose Route Start Last Admin Trade Name Freq PRN Reason Stop Dose Admin Acetaminophen 650 mg 09/21/24 04:16 09/21/24 04:32 Acetaminophen 325 Mg Tablet PO 10/21/24 04:15 650 mg Q6HR PRN Administration Fever >101 and/or Pain 1-3 Amlodipine Besylate 5 mg 09/21/24 09:00 09/21/24 08:11 Amlodipine Besylate 5 Mg Tablet PO 10/21/24 08:59 5 mg DAILY ROYER Administration Chlordiazepoxide HCl 25 mg 09/20/24 14:00 09/21/24 06:06 Chlordiazepoxide Hcl 25 Mg Capsule PO 09/25/24 13:59 25 mg TID ROYER Administration Folic Acid 1 mg 09/20/24 21:00 09/21/24 08:11 Folic Acid 1 Mg Tablet PO 09/25/24 20:59 1 mg BID ROYER Administration Heparin Sodium (Porcine) 5,000 unit 09/20/24 22:00 09/21/24 09:54 Heparin Sod Inj 5000 Unit/Ml Vial SC 10/04/24 21:59 5,000 unit Q12H ROYER Administration Hydralazine HCl 10 mg 09/20/24 16:34 09/20/24 16:52 Hydralazine Inj 20 Mg/Ml Vial IV 10/20/24 16:33 10 mg Q4H PRN Administration hypertension Hydrochlorothiazide 25 mg 09/21/24 09:00 09/21/24 08:11 Hydrochlorothiazide 12.5 Mg Capsule PO 10/21/24 08:59 25 mg QAM ROYER Administration Lactated Ringer's 1,000 mls @ 100 mls/hr 09/20/24 15:06 09/21/24 04:17 Lactated Ringers IV 10/20/24 15:05 100 mls/hr .Q10H ROYER Administration Lorazepam 0.5 mg 09/20/24 12:34 09/21/24 04:17 Lorazepam 2 Mg/Ml Vial IV 09/25/24 12:33 0.5 mg Q2HR PRN Administration CIWA SCORE 8-13 Lorazepam 1 mg 09/20/24 12:34 Lorazepam 2 Mg/Ml Vial IV 09/25/24 12:33 Q2HR PRN CIWA SCORE 14-19 Lorazepam 2 mg 09/20/24 12:34 Lorazepam 2 Mg/Ml Vial IV 09/25/24 12:33 Q2HR PRN CIWA SCORE 20-25 Lorazepam 2 mg 09/20/24 12:34 Lorazepam 2 Mg/Ml Vial IVP X1 PRN Breakthrough Agitation Ondansetron HCl 4 mg 09/20/24 12:32 09/21/24 10:42 Ondansetron Inj 2 Mg/Ml Inj 2 Ml IV 10/20/24 12:31 4 mg Q6H PRN Administration NAUSEA OR VOMITING Protocol Pantoprazole Sodium 40 mg 09/20/24 12:45 09/21/24 08:10 Pantoprazole Inj 40 Mg Vial IVP 10/20/24 12:44 40 mg QDAY ROYER Administration Sennosides 1 tab 09/20/24 12:32 Senna Tablet PO 10/20/24 12:31 QDAY PRN constipation Protocol Thiamine HCl 100 mg 09/20/24 21:00 09/21/24 08:12 Thiamine 100 Mg Tablet PO 09/25/24 20:59 100 mg BID ROYER Administration Plan Assessment and plan: Summary: Mr. Mauro is a 46-year-old male with history of hypertension, alcohol use and methamphetamine presented to [facility] emergency department on 09/19/2024 with a complaint of generally feeling unwell for about 2 weeks patient admitted for further management of alcohol withdrawal #Alcohol dependence with withdrawal #Methamphetamine dependence #Polysubstance dependence Patient complained of feeling weak and sick, reports that his last drink was about 24 to 48 hours ago, reported drinking about a gallon of vodka on a daily basis, reported that he wants to quit drinking. Has history of alcohol and meth use Patient noted to be anxious, tremulous shaking and seems to be withdrawing actively from alcohol, CIWA score around 19. Reported that he used methamphetamine about 3 weeks ago, admits to use of methamphetamine as well. Blood alcohol level 262.7 on presentation Plan: - CIWA protocol, IV Ativan as needed - Started on Librium 25 mg 3 times daily - P.o. folate thiamine and multivitamin -IV Protonix - Zofran as needed for nausea/vomiting #Alcohol-related liver disease #Transaminitis #Thrombocytopenia #Hyperbilirubinemia Patient has transaminitis, AST to ALT ratio greater than 2 used to work, consistent with alcohol use, per review of labs patient has chronic transaminitis high suspicion of secondary to alcohol use Patient platelet count 115, INR 1.1 bilirubin within normal limits [facility] discrimination function score for alcoholic hepatitis 14.1 points, no steroids indicated Plan: - Trend LFTs - Monitor INR in a.m. - Follow CBC - Patient advised to refrain from alcohol use #Electrolyte abnormalities #Hypokalemia #Hypomagnesemia #Hyponatremia #Hypochloremia Sodium 148 Chloride 110 on presentation, patient appears hypovolemic Plan: - Will correct and replace electrolytes as needed #Hypertension #Hyperlipidemia #Hypercholestrolemia Patient has history of hypertension on hydrochlorothiazide 25 mg and amlodipine 5 mg at home Resume home medication Will hold starting statin considering patient has transaminitis. #Concern for PE, rule out CTA was nondiagnostic, low suspicion of PE, did have elevated D-dimer, otherwise respiratory status is stable DVT prophylaxis: Heparin subcutaneous GI prophylaxis: IV Protonix Diet: Low-sodium diet Lines: Peripheral IV Code status: Full code Case discussed with Attending Dr. Cleveland. Jennifer Freedman PGY1 Disclaimer: This note was dictated by speech recognition. Minor errors in boat master may be present due to voice recognition software. Attending Provider Attestation/Addendum Patient seen and examined at bedside with resident. Agree with assessment and plan as dictated above. Patient still experiencing some withdrawal symptoms and unable to tolerate p.o. medications at this time secondary to nausea and vomiting. Will continue on IV therapy with Librium 3 times daily as tolerated. Juan Jose Cleveland MD
[2024-09-22] VITALS (11 sets, daily range): BP systolic 135–168; BP diastolic 90–104; PULSE 77–99; RESP 12–95; TEMP 36.3–36.8; O2SAT 97–98
[2024-09-22] MEDS: chlordiazePOXIDE HCl 25 MG CAPSULE PO ×2 (05:19→18:12)
[2024-09-22] MEDS: ONDANSETRON INJ 2 MG/ML INJ 2 ML 4 MG IV ×2 (05:21→15:33)
[2024-09-22] MEDS: RINGERS LACTATED 1000 ML 1,000 ML 100 ML IV (05:25)
[2024-09-22 06:03] LABS: Basophils % (Auto) 1 % (0-2.5); Eosinophils # (Auto) 0.1 Thou/mm3 (0.0-0.5); Eosinophils % (Auto) 2 % (0-10); Hematocrit 34.4 % (41.0-53.0); Hemoglobin 11.2 g/dL (13.5-16.0); Immature Granulocytes % (Auto) 1 % (0-0); Immature Granulocytes Auto 0.04 Thou/mm3 (0.00-0.00); Lymphocytes # (Auto) 0.7 Thou/mm3 (1.0-4.8); Lymphocytes % (Auto) 10 % (10-50); Mean Corpuscular HGB Conc 32.6 g/dl (31.0-37.0); Mean Corpuscular Hemoglobin 27.7 pg (25.0-35.0); Mean Corpuscular Volume 85 fL (80-100); Monocytes # (Auto) 0.4 Thou/mm3 (0.0-0.8); Monocytes % (Auto) 6 % (0-12); Neutrophils # (Auto) 5.8 Thou/mm3 (1.8-7.7); Neutrophils % (Auto) 81 % (37-80); Nucleated Red Blood Cell % 0 /100 WBC (0); RDW Standard Deviation 48.9 fL (35.1-43.9); Red Blood Count 4.05 Miln/mm3 (4.50-5.90); White Blood Count 7.1 Thou/mm3 (3.8-10.6)
[2024-09-22 06:04] LABS: Platelet Count 76 Thou/mm3 (140-440)
[2024-09-22 06:08] LABS: INR 1.1 (0.9-1.3); Prothrombin Time 11.9 Seconds (9.0-12.2)
[2024-09-22 06:25] LABS: Alanine Aminotransferase 114 U/L (10-49); Albumin, Serum 3.8 gm/dL (3.5-5.0); Albumin/Globulin Ratio 1.3 (1.2-2.2); Alkaline Phosphatase 323 U/L (46-116); Anion Gap 10 (7-16); Aspartate Amino Transferase 183 U/L (0-34); BUN/Creatinine Ratio 12 Ratio (12-20); Bilirubin,Total 1.4 mg/dL (0.3-1.2); Blood Urea Nitrogen 11 mg/dL (9-23); Calcium 8.9 mg/dL (8.3-10.6); Calcium (Corrected) 9.1 mg/dL (8.5-10.1); Carbon Dioxide 27.1 mMol/L (20.0-31.0); Chloride 103 mMol/L (98-107); Creatinine (Component) 0.9 mg/dL (0.6-1.3); Estimated Creatinine Clearance 114.7 mL/min (>60); Globulin 2.9 gm/dL (2.3-3.5); Glucose 104 mg/dL (74-106); Osmolality,Calculated 278 (275-295); Phosphorous 2.9 mg/dL (2.4-5.1); Potassium 3.4 mMol/L (3.4-5.1); Sodium 140 mMol/L (136-145); Total Protein 6.7 gm/dL (5.7-8.2); eGFR > 60 See Note
[2024-09-22 07:00] LABS: Slide Review Platelets confirmed
[2024-09-22] MEDS: LORazepam 2 MG/ML VIAL 0.5 MG IV ×2 (07:59→19:40)
[2024-09-22] MEDS: METOCLOPRAMIDE INJ 5 MG/ML VIAL 2 ML IVP ×3 (08:04→23:30)
[2024-09-22] MEDS: POTASSIUM CHLORIDE 10% 20 MEQ/15 ML UDC PO (08:08)
[2024-09-22] MEDS: FOLIC ACID 1 MG TABLET PO ×2 (08:08→21:00)
[2024-09-22] MEDS: amLODIPine BESYLATE 5 MG TABLET PO (08:09)
[2024-09-22] MEDS: hydroCHLOROthiazide 12.5 MG CAPSULE 25 MG PO (08:10)
[2024-09-22] MEDS: PANTOPRAZOLE INJ 40 MG VIAL IVP (08:10)
[2024-09-22] MEDS: THIAMINE 100 MG TABLET PO ×2 (08:10→21:00)
[2024-09-22] MEDS: ACETAMINOPHEN 325 MG TABLET 650 MG PO ×2 (08:19→18:14)
[2024-09-22] MEDS: HEPARIN SOD INJ 5000 UNIT/ML VIAL SC ×2 (09:17→21:01)
--- NOTE | 2024-09-22 10:55 | ESPR_ITS ---
Documentation for date of: 09/22/24 Subjective Subjective Interval history: Patient seen and examined at bedside. Labs and vitals reviewed. Patient continues to have symptoms of alcohol withdrawal, currently tremulous and anxious. Symptoms have improved compared to yesterday, will hold Librium. Patient has significant nausea, will use as needed Zofran. Continue to monitor patient, will taper off Librium. Exam Vital Signs Temp Pulse Resp BP Pulse Ox O2 Del Method O2 Flow Rate 97.9 F 95 14 141/97 H 98 Room Air 1 09/22/24 08:00 09/22/24 08:10 09/22/24 08:00 09/22/24 08:10 09/22/24 08:00 09/22/24 08:00 09/21/24 14:00 Narrative Exam Physical Exam General: Awake and in no acute distress. Conversational and non-toxic appearing. HEENT: Normocephalic, atraumatic, mucous membranes moist. Heart: Regular rate and rhythm, no murmurs. Lungs: Clear to auscultation with no wheezing or crackles. Abdomen: Soft, nondistended, nontender, positive bowel sounds. ?No guarding or rebound tenderness. Neurologic: Alert and oriented x3, no gross neurological deficit, and patient able to move all 4 extremities. Agitated, tremulous and restless. Extremities: No edema. Skin: No rash or ecchymoses. Objective Labs 09/23/24 05:17 09/23/24 05:17 Labs: Laboratory Results - last 24 hr 09/22/24 05:07 WBC 7.1 RBC 4.05 L Hgb 11.2 L Hct 34.4 L MCV 85 MCH 27.7 MCHC 32.6 RDW Std Deviation 48.9 H Plt Count 76 L Neut % (Auto) 81 H Lymph % (Auto) 10 [place] % (Auto) 6 Eos % (Auto) 2 Baso % (Auto) 1 Neut # (Auto) 5.8 Lymph # (Auto) 0.7 L [place] # (Auto) 0.4 Eos # (Auto) 0.1 Baso # (Auto) 0.0 Immature Gran # (Auto) 0.04 H Absolute Nucleated RBC 0.00 Immature Gran % 1 H Nucleated RBC % 0 PT 11.9 INR 1.1 Sodium 140 Potassium 3.4 Chloride 103 Carbon Dioxide 27.1 Anion Gap 10 BUN 11 Creatinine 0.9 Estim Creat Clear Calc 114.7 eGFR > 60 BUN/Creatinine Ratio 12 Glucose 104 Calculated Osmolality 278 Calcium 8.9 Corrected Calcium 9.1 Phosphorus 2.9 Magnesium 2.0 Total Bilirubin 1.4 H AST 183 H ALT 114 H Alkaline Phosphatase 323 H Total Protein 6.7 Albumin 3.8 Globulin 2.9 Albumin/Globulin Ratio 1.3 Misc Test Result Platelets confirmed ABG Interpretation ABG results: 09/20/24 12:05 VBG pH 7.55 VBG pCO2 29 L VBG pO2 147 H VBG Base Excess 4 H Quality Measures Quality Measures none Assessment & Plan Assessment Current Active Medications: Generic Name Dose Route Start Last Admin Trade Name Freq PRN Reason Stop Dose Admin Acetaminophen 650 mg 09/21/24 04:16 09/21/24 04:32 Acetaminophen 325 Mg Tablet PO 10/21/24 04:15 650 mg Q6HR PRN Administration Fever >101 and/or Pain 1-3 Amlodipine Besylate 5 mg 09/21/24 09:00 09/21/24 08:11 Amlodipine Besylate 5 Mg Tablet PO 10/21/24 08:59 5 mg DAILY ROYER Administration Chlordiazepoxide HCl 25 mg 09/20/24 14:00 09/21/24 06:06 Chlordiazepoxide Hcl 25 Mg Capsule PO 09/25/24 13:59 25 mg TID ROYER Administration Folic Acid 1 mg 09/20/24 21:00 09/21/24 08:11 Folic Acid 1 Mg Tablet PO 09/25/24 20:59 1 mg BID ROYER Administration Heparin Sodium (Porcine) 5,000 unit 09/20/24 22:00 09/21/24 09:54 Heparin Sod Inj 5000 Unit/Ml Vial SC 10/04/24 21:59 5,000 unit Q12H ROYER Administration Hydralazine HCl 10 mg 09/20/24 16:34 09/20/24 16:52 Hydralazine Inj 20 Mg/Ml Vial IV 10/20/24 16:33 10 mg Q4H PRN Administration hypertension Hydrochlorothiazide 25 mg 09/21/24 09:00 09/21/24 08:11 Hydrochlorothiazide 12.5 Mg Capsule PO 10/21/24 08:59 25 mg QAM ROYER Administration Lactated Ringer's 1,000 mls @ 100 mls/hr 09/20/24 15:06 09/21/24 04:17 Lactated Ringers IV 10/20/24 15:05 100 mls/hr .Q10H ROYER Administration Lorazepam 0.5 mg 09/20/24 12:34 09/21/24 04:17 Lorazepam 2 Mg/Ml Vial IV 09/25/24 12:33 0.5 mg Q2HR PRN Administration CIWA SCORE 8-13 Lorazepam 1 mg 09/20/24 12:34 Lorazepam 2 Mg/Ml Vial IV 09/25/24 12:33 Q2HR PRN CIWA SCORE 14-19 Lorazepam 2 mg 09/20/24 12:34 Lorazepam 2 Mg/Ml Vial IV 09/25/24 12:33 Q2HR PRN CIWA SCORE 20-25 Lorazepam 2 mg 09/20/24 12:34 Lorazepam 2 Mg/Ml Vial IVP X1 PRN Breakthrough Agitation Ondansetron HCl 4 mg 09/20/24 12:32 09/21/24 10:42 Ondansetron Inj 2 Mg/Ml Inj 2 Ml IV 10/20/24 12:31 4 mg Q6H PRN Administration NAUSEA OR VOMITING Protocol Pantoprazole Sodium 40 mg 09/20/24 12:45 09/21/24 08:10 Pantoprazole Inj 40 Mg Vial IVP 10/20/24 12:44 40 mg QDAY ROYER Administration Sennosides 1 tab 09/20/24 12:32 Senna Tablet PO 10/20/24 12:31 QDAY PRN constipation Protocol Thiamine HCl 100 mg 09/20/24 21:00 09/21/24 08:12 Thiamine 100 Mg Tablet PO 09/25/24 20:59 100 mg BID ROYER Administration Plan Assessment and plan: Summary: Mr. Mauro is a 46-year-old male with history of hypertension, alcohol use and methamphetamine presented to [facility] emergency department on 09/19/2024 with a complaint of generally feeling unwell for about 2 weeks patient admitted for further management of alcohol withdrawal #Alcohol dependence with withdrawal #Methamphetamine dependence #Polysubstance dependence Patient complained of feeling weak and sick, reports that his last drink was about 24 to 48 hours ago, reported drinking about a gallon of vodka on a daily basis, reported that he wants to quit drinking. Has history of alcohol and meth use Patient noted to be anxious, tremulous shaking and seems to be withdrawing actively from alcohol, CIWA score around 19. Reported that he used methamphetamine about 3 weeks ago, admits to use of methamphetamine as well. Blood alcohol level 262.7 on presentation Plan: - CIWA protocol, IV Ativan as needed - Patient on Librium this morning, will give another dose in the evening. - P.o. folate thiamine and multivitamin - IV Protonix - Zofran as needed for nausea/vomiting #Alcohol-related liver disease #Transaminitis #Thrombocytopenia #Hyperbilirubinemia Patient has transaminitis, AST to ALT ratio greater than 2 used to work, consistent with alcohol use, per review of labs patient has chronic transaminitis high suspicion of secondary to alcohol use Patient platelet count 115, INR 1.1 bilirubin within normal limits [facility] discrimination function score for alcoholic hepatitis 14.1 points, no steroids indicated Plan: - Trend LFTs - Monitor INR in a.m. - Follow CBC - Patient advised to refrain from alcohol use #Electrolyte abnormalities #Hypokalemia #Hypomagnesemia #Hyponatremia #Hypochloremia Sodium 148 Chloride 110 on presentation, patient appears hypovolemic Plan: - Will correct and replace electrolytes as needed #Hypertension #Hyperlipidemia #Hypercholestrolemia Patient has history of hypertension on hydrochlorothiazide 25 mg and amlodipine 5 mg at home Resume home medication Will hold starting statin considering patient has transaminitis. #Concern for PE, rule out CTA was nondiagnostic, low suspicion of PE, did have elevated D-dimer, otherwise respiratory status is stable DVT prophylaxis: Heparin subcutaneous GI prophylaxis: IV Protonix Diet: Low-sodium diet Lines: Peripheral IV Code status: Full code Case discussed with Attending Dr. Cleveland. Jennifer Freedman PGY1 Disclaimer: This note was dictated by speech recognition. Minor errors in child development associate teacher may be present due to voice recognition software. Attending Provider Attestation/Addendum Patient seen and examined at bedside with resident. Agree with assessment and plan as dictated above. Patient appears to be improving today. CIWA of 12 this morning but NV has improved. He is now able to tolerate most po medications and if continues to be stable, may be cleared to be discharged in am. Juan Jose Cleveland MD
--- NOTE | 2024-09-22 20:11 | PC.LAC ---
SPOKE WITH DR. CROCKER REGARDING PT'S CONTINUED HEADACHE, NAUSEA, INSOMINIA. PT REQUESTING REGLAN BC HE STATES IT WORKS BETTER FOR HIM. NEW ORDERS TO BE PLACED BY MD FOR REGLAN, TORADOL, AND MELATONIN
[2024-09-22] MEDS: MELATONIN 3 MG TABLET PO (21:00)
[2024-09-22] MEDS: KETOROLAC INJ 30 MG/ML VIAL IVP (21:00)
[2024-09-23] VITALS (7 sets, daily range): BP systolic 96–136; BP diastolic 64–92; PULSE 73–99; RESP 12–98; TEMP 36.1–36.3; O2SAT 91–99
[2024-09-23] MEDS: METOCLOPRAMIDE INJ 5 MG/ML VIAL 2 ML IVP ×2 (05:31→13:22)
[2024-09-23 06:03] LABS: Basophils % (Auto) 1 % (0-2.5); Eosinophils # (Auto) 0.2 Thou/mm3 (0.0-0.5); Eosinophils % (Auto) 2 % (0-10); Hematocrit 35.5 % (41.0-53.0); Hemoglobin 11.2 g/dL (13.5-16.0); Immature Granulocytes % (Auto) 0 % (0-0); Immature Granulocytes Auto 0.03 Thou/mm3 (0.00-0.00); Lymphocytes # (Auto) 0.7 Thou/mm3 (1.0-4.8); Lymphocytes % (Auto) 8 % (10-50); Mean Corpuscular HGB Conc 31.5 g/dl (31.0-37.0); Mean Corpuscular Volume 86 fL (80-100); Monocytes # (Auto) 0.4 Thou/mm3 (0.0-0.8); Monocytes % (Auto) 5 % (0-12); Neutrophils # (Auto) 6.8 Thou/mm3 (1.8-7.7); Neutrophils % (Auto) 83 % (37-80); Nucleated Red Blood Cell % 0 /100 WBC (0); Platelet Count 104 Thou/mm3 (140-440); RDW Standard Deviation 49.2 fL (35.1-43.9); Red Blood Count 4.15 Miln/mm3 (4.50-5.90); White Blood Count 8.1 Thou/mm3 (3.8-10.6)
[2024-09-23 06:18] LABS: Prothrombin Time 11.4 Seconds (9.0-12.2)
[2024-09-23 06:26] LABS: Alanine Aminotransferase 128 U/L (10-49); Albumin, Serum 4.1 gm/dL (3.5-5.0); Albumin/Globulin Ratio 1.4 (1.2-2.2); Alkaline Phosphatase 322 U/L (46-116); Anion Gap 10 (7-16); Aspartate Amino Transferase 165 U/L (0-34); BUN/Creatinine Ratio 14 Ratio (12-20); Bilirubin,Total 1.2 mg/dL (0.3-1.2); Blood Urea Nitrogen 14 mg/dL (9-23); Calcium 9.4 mg/dL (8.3-10.6); Calcium (Corrected) 9.4 mg/dL (8.5-10.1); Chloride 102 mMol/L (98-107); Estimated Creatinine Clearance 103.2 mL/min (>60); Glucose 100 mg/dL (74-106); Magnesium 1.8 mg/dL (1.6-2.6); Osmolality,Calculated 278 (275-295); Phosphorous 4.5 mg/dL (2.4-5.1); Potassium 3.6 mMol/L (3.4-5.1); Sodium 139 mMol/L (136-145); Total Protein 7.1 gm/dL (5.7-8.2); eGFR > 60 See Note
[2024-09-23] MEDS: THIAMINE 100 MG TABLET PO (08:31)
[2024-09-23] MEDS: amLODIPine BESYLATE 5 MG TABLET PO (08:31)
[2024-09-23] MEDS: FOLIC ACID 1 MG TABLET PO (08:31)
[2024-09-23] MEDS: POTASSIUM CHLORIDE 20 mEq TABCR 40 MEQ PO (08:31)
[2024-09-23] MEDS: hydroCHLOROthiazide 12.5 MG CAPSULE 25 MG PO (08:31)
[2024-09-23] MEDS: chlordiazePOXIDE HCl 25 MG CAPSULE PO (08:31)
[2024-09-23] MEDS: PANTOPRAZOLE INJ 40 MG VIAL IVP (08:32)
--- NOTE | 2024-09-23 09:05 | PC.SS ---
Follow up note: Pt will dc today and return home. Last dose of Librium today.
--- NOTE | 2024-09-23 11:50 | ESDS_ITS ---
<Statement entered by Oneil Dickey MD - 09/23/24 23:26> I discussed with and supervised the mechanical intern physician involved in the care of this patient. Patient assessment and plan was discussed with entire medicine team, including my attending. I agree with the assessment and plan as documented by mechanical intern doctor. Patient care was discussed with my attending physician Dr. Tanya Dickey, PGY-2 Planned Discharge Date 09/23/24 DS: Providers Provider Date of admission: 09/20/24 12:28 Primary care physician: Physician Claudia Primary/Family Admitting Provider: Abdirashid Hayes MD Attending Provider on Admission: Alcides Martínez DO Attending Provider on DC: Alcides Martínez DO Discharging Provider: Alcides Martínez DO Anticipated date of discharge: 09/23/24 DS: Diagnosis Problem List Completed Was Problem List Reviewed/Reconciled?: Yes Hospital Course Hospital Course Hospital course: Hospital course: Mr. Mauro is a 46-year-old male with history of hypertensi on, alcohol use and methamphetamine presented to [facility] emergency department on 09/19/2024 with a complaint of generally feeling unwell for about 2 weeks patient admitted for further management of alcohol withdrawal. Patient complained of feeling weak and sick, last drink was 24 to 48 hours ago, Blood alcohol level 262.7 on presentation, patient was started on CIWA protocol at p.o. Librium, patient had significant transaminitis possibly secondary to alcohol-related liver disease, patient was given IV fluids started on thiamine and folic acid electrolytes were corrected and replaced patient was given IV Ativan as needed per CIWA protocol. Patient's home medication for hypertension was resumed, patient's lipid panel was reflective of dyslipidemia, deferred starting statin considering patient had transaminitis. With the progression of hospital course patient symptoms of alcohol withdrawal improved, patient was tapered off of CIWA protocol and p.o. chlordiazepoxide. Further plan is to discharge patient home on folic acid and thiamine and follow-up with primary care physician in 1 week. Advised patient to abstain from alcohol, counseled on resources like alcoholic anonymous, patient verbalized understanding. Patient is stable for discharge and patient responded well to hospital treatment. Discharge diagnosis: #Alcohol dependence with withdrawal #Methamphetamine dependence #Polysubstance dependence #Alcohol-related liver disease #Transaminitis #Thrombocytopenia #Hyperbilirubinemia #Electrolyte abnormalities #Hypokalemia #Hypomagnesemia #Hyponatremia #Hypochloremia #Hypertension #Hyperlipidemia #Hypercholestrolemia Case discussed with Attending Dr. Martínez and Dr. Dickey PGY2. Jennifer Freedman PGY1 Disclaimer: This note was dictated by speech recognition. Minor errors in papier mache molder may be present due to voice recognition software. Status at Discharge Functional status at discharge: independent ambulation Overall status at discharge: patient is progressing back to baseline Time Spent with Patient Time attestation: Total time spent providing and/or coordinating discharge services: Time spent: Greater than 30 minutes Exam Vital Signs Temp Pulse Resp BP Pulse Ox O2 Del Method O2 Flow Rate 97.1 F 92 16 136/92 H 99 Room Air 1 09/23/24 08:00 09/23/24 08:31 09/23/24 08:00 09/23/24 08:31 09/23/24 08:00 09/23/24 00:00 09/21/24 14:00 Narrative Exam Physical Exam General: Awake and in no acute distress. Conversational and non-toxic appearing. HEENT: Normocephalic, atraumatic, mucous membranes moist. Heart: Regular rate and rhythm, no murmurs. Lungs: Clear to auscultation with no wheezing or crackles. Abdomen: Soft, nondistended, nontender, positive bowel sounds. ?No guarding or rebound tenderness. Neurologic: Alert and oriented x3, no gross neurological deficit, and patient able to move all 4 extremities. Extremities: No edema. Skin: No rash or ecchymoses. Discharge Plan Plan Patient Disposition: HOME (Self Care) Patient condition on transfer: Stable Prescriptions/Referrals Prescriptions/Med Rec: New folic acid 1 mg Tablet 1 mg PO BID 7 Days Qty: 14 0RF thiamine mononitrate (vit B1) 100 mg Tablet 100 mg PO BID 7 Days Qty: 14 0RF Continued hydrochlorothiazide 25 mg tablet 25 mg PO QAM Qty: 30 1RF amlodipine 5 mg tablet 5 mg PO DAILY Discontinued lisinopril 20 mg tablet 20 mg PO QDAY Qty: 30 1RF Paxlovid 150 mg x 2- 100 mg tablet See Rx Instructions .ROUTE .COMPLEX Qty: 30 0RF Rx Instructions: take TWO 150 mg tablets of nirmatrelvir with ONE 100 mg tablet of ritonavir twice daily for 5 days amlodipine 10 mg tablet 10 mg PO QDAY Patient Comments: has not taken for 1 year potassium chloride 8 mEq capsule, extended release 8 meq PO QDAY Qty: 30 0RF ibuprofen 800 mg tablet 800 mg PO TID PRN (Reason: pain) Qty: 30 0RF ibuprofen 600 mg tablet 600 mg PO Q6H PRN (Reason: pain) Qty: 30 0RF hydrocodone-acetaminophen 5-325 mg tablet 1 tab PO Q6H MDD 9 PRN (Reason: pain) Qty: 15 0RF ibuprofen 600 mg tablet 600 mg PO Q6H PRN (Reason: pain) Qty: 30 0RF acetaminophen [Tylenol Extra Strength] 500 mg tablet 1,000 mg PO Q6H PRN (Reason: pain) Qty: 30 0RF lidocaine 5 % adhesive patch,medicated 1 patch topical QDAY PRN (Reason: pain) Qty: 15 0RF Rx Instructions: leave on most painful area for up to 12 hrs methocarbamol 500 mg tablet 1,000 mg PO Q8H PRN (Reason: muscle pain) Qty: 30 0RF ibuprofen 800 mg tablet 800 mg PO Q8H PRN (Reason: pain) Qty: 30 0RF Referrals: No Primary/Family,Physician [Primary Care Provider] - Patient/Caregiver Discharge Instructions Discharge Activity: activity as tolerated Other Discharge Activity Instructions:: Continue take folic acid and vitamin D1 twice daily for 7 days. Continue amlodipine 5 mg and hydrochlorothiazide 25 mg daily for hypertension. Follow-up with primary care physician in 1 week. Refrain from using alcohol, consider going to Alcoholic Anonymous meeting. Repeat liver panel outpatient, you need to be on atorvastatin for hyperlipidemia (high cholesterol) You can also follow-up in [facility] in 1 to 2 weeks. Call [phone] to make an appointment Address: [facility], [address], [address], [place], [address] Return to ED if symptoms return or worsen. Other Discharge Diet Instructions: Stop alcohol use. Education Materials: Social Drinking vs Problem Drinking, Alcohol Withdrawal: What to Expect Print Language: Beninese Stand Alone Forms: Mayuri Award Info., Patient Portal Info Letter Discharge Order Discharge Orders: Discharge (Routine); Ordered 09/23/24 Ordered By: Jennifer Freedman Quality Discharge Quality Measures VTE prophylaxis
--- NOTE | 2024-09-23 15:04 | PC.SS ---
Addendum entered by Ying Asher 09/23/24 15:07: Pt is aware AA meeting are held out of town as well. Original Note: SS met with pt to confirm d/c to home and pt states his sister, [place] will provide transportation at d/c. SS offered pt Community Resource List and pt was receptive.
== END 2024-09-23 17:30 | disposition home or self-care (01) | DRG 775 ==
LOC: SERX 09-20 11:48 → SERHOLD 09-20 12:52 → S2NX 09-20 16:04
PROVIDERS: Emergency Medicine; Admitting Provider Student in an Organized Health Care Education/Training Program; Emergency Provider Emergency Medicine; Visit Provider Student in an Organized Health Care Education/Training Program
DX: F10.239 Alcohol dependence with withdrawal, unspecified (principal); I10 Essential (primary) hypertension; F15.20 Other stimulant dependence, uncomplicated; Y90.8 Blood alcohol level of 240 mg/100 ml or more; K70.10 Alcoholic hepatitis without ascites; E87.6 Hypokalemia; E87.1 Hypo-osmolality and hyponatremia; E86.1 Hypovolemia; E87.8 Other disorders of electrolyte and fluid balance, not elsewhere classified; E83.42 Hypomagnesemia; E87.0 Hyperosmolality and hypernatremia; E86.0 Dehydration; E78.00 Pure hypercholesterolemia, unspecified; D69.6 Thrombocytopenia, unspecified; Z79.899 Other long term (current) drug therapy
CPT/HCPCS: 36415; 70450; 71275; 80053; 80061; 80320; 82803; 83605; 83735; 84100; 84484; 85025; 85379; 85610; 85730; 87040; 94762; 96361; 96365; 96375; 96376; 99291; A4649; J0360; J1643; J1885; J2060; J2405; J2470; J2765; J3411; J3475; J3490; J7030; J7050; J7120; Q9967; A9270; G0480

== ENCOUNTER 2024-11-01 23:50 | Emergency (ER) | payer MEDICAID, SELFPAY ==
[2024-11-01 23:51] VITALS: BMI 30.9
[2024-11-02 00:37] VITALS: BP 175/111; BP 193/110; PULSE 98; RESP 19; TEMP 37; O2SAT 97
--- NOTE | 2024-11-02 01:11 | XR_ITS ---
Examination: PA lateral chest 2 views TECHNIQUE: Upright PA and lateral chest 3 views Examination time: November 02, 2024 0156 hours INDICATIONS: Chest pain today. FINDINGS: Normal heart size No lobar pneumonia or pulmonary edema The osseous structures are intact IMPRESSION: No active disease
--- NOTE | 2024-11-02 01:11 | PD.EDRME ---
Rapid Medical Screening Exam RME Arrival date/time: 11/01/24 23:50 49M with history of HTN and drug/alcohol abuse presents to ED with 1 month of cough, CP, and SOB. Patient states he's felt like this since he was discharge last month from here. Chief Complaint: Flu Like Symptoms Vital signs: Vital Signs Temperature 98.6 F 11/02/24 00:37 Pulse Rate 98 11/02/24 00:37 Respiratory Rate 19 11/02/24 00:37 Blood Pressure 193/110 H 11/02/24 00:37 Pulse Oximetry (%) 97 11/02/24 00:37 Oxygen Delivery Method Room Air 11/02/24 00:37
[2024-11-02 02:34] LABS: Lactate (Lactic Acid) 1.9 mMol/L (0.4-2.0)
[2024-11-02 02:41] LABS: Basophils # (Auto) 0.1 Thou/mm3 (0.0-0.2); Basophils % (Auto) 1 % (0-2.5); Eosinophils # (Auto) 0.3 Thou/mm3 (0.0-0.5); Eosinophils % (Auto) 3 % (0-10); Hematocrit 34.2 % (41.0-53.0); Hemoglobin 11.3 g/dL (13.5-16.0); Immature Granulocytes % (Auto) 0 % (0-0); Immature Granulocytes Auto 0.03 Thou/mm3 (0.00-0.00); Lymphocytes # (Auto) 1.3 Thou/mm3 (1.0-4.8); Lymphocytes % (Auto) 14 % (10-50); Mean Corpuscular Hemoglobin 28.1 pg (25.0-35.0); Mean Corpuscular Volume 85 fL (80-100); Monocytes # (Auto) 0.8 Thou/mm3 (0.0-0.8); Monocytes % (Auto) 9 % (0-12); Neutrophils # (Auto) 7.1 Thou/mm3 (1.8-7.7); Neutrophils % (Auto) 74 % (37-80); Nucleated Red Blood Cell % 0 /100 WBC (0); Platelet Count 235 Thou/mm3 (140-440); RDW Standard Deviation 52.4 fL (35.1-43.9); Red Blood Count 4.02 Miln/mm3 (4.50-5.90); White Blood Count 9.6 Thou/mm3 (3.8-10.6)
[2024-11-02 03:10] LABS: B-Type Natriuretic Peptide 40 pg/mL (0-100)
[2024-11-02 03:18] LABS: Alanine Aminotransferase 68 U/L (10-49); Albumin/Globulin Ratio 1.2 (1.2-2.2); Alcohol, Blood Medical 192.2 mg/dL (0-10.0); Alkaline Phosphatase 313 U/L (46-116); Anion Gap 12 (7-16); Aspartate Amino Transferase 146 U/L (0-34); BUN/Creatinine Ratio 10 Ratio (12-20); Bilirubin,Total 0.5 mg/dL (0.3-1.2); Blood Urea Nitrogen 10 mg/dL (9-23); Calcium 8.2 mg/dL (8.3-10.6); Calcium (Corrected) 8.2 mg/dL (8.5-10.1); Carbon Dioxide 24.9 mMol/L (20.0-31.0); Chloride 109 mMol/L (98-107); Globulin 3.3 gm/dL (2.3-3.5); Glucose 128 mg/dL (74-106); Osmolality,Calculated 291 (275-295); Potassium 2.8 mMol/L (3.4-5.1); Procalcitonin 0.17 ng/ml (0.0-0.49); Sodium 146 mMol/L (136-145); Total Protein 7.3 gm/dL (5.7-8.2); Troponin I < 0.020 ng/mL (0.0-0.045); eGFR > 60 See Note
[2024-11-02 03:53] VITALS: BP 180/127; PULSE 84; RESP 19; TEMP 36.8; O2SAT 99
--- NOTE | 2024-11-02 04:14 | PD.EDURI ---
Upper Respiratory Inf. RME/HPI General Chief Complaint: Flu Like Symptoms Stated Complaint: COUGH SOB Source: patient Arrival date/time: 11/01/24 23:50 Mode of arrival: ambulatory Limitations: no limitations RME / HPI RME / HPI Narrative: 11/01/24 23:50 49M with history of HTN and drug/alcohol abuse presents to ED with 1 month of cough, CP, and SOB. Patient states he's felt like this since he was discharge last month from here. DR. FERGUSON?S MAIN ED EVALUATION: 49-year-old male with history of HTN presenting to the emergency department via private auto who is presenting for chief complaint of cough and dry mouth and throat x over 2 weeks. Reports being seen here and diagnosed with PNA, but was not prescribed any antibiotics, only an inhaler and cough medication. No associated symptoms include nausea and vomiting. Patient denies sick contacts, history of smoking or any other associated symptoms or medical complaints. - PMH:?Hypertension, Gall Bladder Disease, Arthritis - PSH: Denies - Social history: Alcohol abuse - Current medications: Reviewed PCP is Jacinto Diaz MD MD Complaint: cough and sore throat Onset (ago): week(s) (< 2) Duration: intermittent Able to tolerate fluids by mouth: Yes Context: other (Diagnosed with PNA, no ABX) Associated symptoms: cough Related Data Home Medications ?Medication ?Instructions ?Recorded ?Confirmed amlodipine 5 mg tablet 5 mg PO DAILY 09/20/24 09/20/24 Previous Rx's ?Medication ?Instructions ?Recorded hydrochlorothiazide 25 mg tablet 25 mg PO QAM #30 tabs 09/15/21 Allergies Allergy/AdvReac Type Severity Reaction Status Date / Time No Known Allergies Allergy Verified 11/01/24 23:55 Review of Systems Review of Systems Systems Reviewed: All systems reviewed, normal except as documented ENT Ears, Nose, Mouth, and Throat: Reports dry mouth (and throat) Respiratory Respiratory: Reports cough Gastrointestinal Gastrointestinal: Denies nausea and Denies vomiting Past Medical History Past Medical History CARDIAC: Positive Hypertension GASTROINTESTINAL: Positive Gastrointestinal Disorders and Gall Bladder Disease MUSCULOSKELETAL: Positive Arthritis OTHER HISTORY: Positive Falls Family History FAMILY HISTORY: Positive Family Cardiac Disorders and Family Cancer Social History SECOND HAND EXPOSURE: Yes (sister including marijuana) ALCOHOL: Current ED Exam General Limitations: Present no limitations Head Head exam: Present atraumatic, normocephalic and normal inspection Eye Eye exam: Present normal appearance, PERRL and EOMI ENT ENT exam: Present normal exam, normal oropharynx, mucous membranes moist and TM's normal bilaterally Neck Neck exam: Present normal inspection, full ROM and trachea midline; Absent tenderness Chest Chest inspection: Present normal inspection and symmetric chest wall rise; Absent tenderness Cardiovascular Cardiovascular exam: Present regular rate, normal rhythm and normal heart sounds Abdominal Exam Abdominal exam: Present soft and normal bowel sounds; Absent distention, tenderness, guarding, rebound or rigidity Extremities Exam Extremities exam: Present normal inspection, full ROM and normal capillary refill; Absent tenderness or pedal edema Back Exam Back exam: Present normal inspection and full ROM; Absent tenderness, CVA tenderness (R), CVA tenderness (L) or paraspinal tenderness Neurological Exam Neurological exam: Present alert, oriented X3, CN II-XII intact and normal gait Psychiatric Psychiatric exam: Present normal affect and normal mood; Absent agitated Skin Skin exam: Present warm, dry, intact and normal color; Absent rash, cyanosis or diaphoresis Course Course Course Narrative: CXR is ordered for determining the etiology of cough. Quality Measures none Orders Category Date Time Status Bedside Influenza A&B Antigen Test NOW Care 11/02/24 01:12 Completed XR chest 2V Stat Exams 11/02/24 01:11 Taken Alcohol, Blood Medical Stat Lab 11/02/24 02:13 Completed B-Type Natriuretic Peptide Stat Lab 11/02/24 02:13 Completed CBC Stat Lab 11/02/24 02:13 Completed Comprehensive Metabolic Panel Stat Lab 11/02/24 02:13 Completed Lactate (Lactic Acid) Stat Lab 11/02/24 02:13 Completed Procalcitonin Stat Lab 11/02/24 02:13 Completed Troponin I Stat Lab 11/02/24 02:13 Completed Albuterol/Ipratr Rt Nisha [Duoneb Rt Nisha] Med 11/02/24 05:42 Discontinued 3 ml INH X1 ONE Azithromycin Po [Zithromax PO] Med 11/02/24 04:20 Discontinued 500 mg PO X1 ONE Labetalol IV [Trandate IV] Med 11/02/24 04:18 Discontinued 10 mg IVP X1 ONE Magnesium Sulfate 1 gm Ivpb [Magnesium Sulfate Ivpb] Med 11/02/24 04:22 Discontinued 1 gm in 100 ml IV X1 POTASSIUM CHL 10 mEq IVPB [Kcl Ivpb] Med 11/02/24 04:22 Discontinued 10 meq in 100 ml IV X1 Potassium Chloride [K-Dur] Med 11/02/24 04:21 Discontinued 40 meq PO X1 ONE Sodium Chloride 0.9% 1000 ml [Ns] 1,000 ml Med 11/02/24 04:21 Discontinued IV 999 mls/hr cefTRIAXone/D5w 1gm IV premix [Rocephin/D5w 1gm IV Med 11/02/24 04:18 Discontinued premix] 1 gm in 50 ml IV X1 Vital Signs Vital signs: Vital Signs Temperature 98.6 F 11/02/24 00:37 Pulse Rate 98 11/02/24 00:37 Respiratory Rate 19 11/02/24 00:37 Blood Pressure 193/110 H 11/02/24 00:37 Pulse Oximetry (%) 97 11/02/24 00:37 Oxygen Delivery Method Room Air 11/02/24 00:37 Upper Respiratory Infection MDM Narrative MDM Narrative:: Scribe Attestation: 11/02/2024 - Darcy Muñoz am scribing for and in the presence of Dr. Ferguson. Provider Notation: Although this document has been carefully reviewed, there may still be some phonetic and other typographical errors.? These errors are purely grammatical due to imperfections in the software program and should not be construed in any way to compromise the substance of the patient's medical care during this visit. 49-year-old male with history of HTN presenting to the emergency department via private auto who is presenting for chief complaint of cough and dry mouth and throat x over 2 weeks. ROS: cough, dry mouth and throat x 2+ weeks. EDC: Differential diagnoses include upper respiratory infection, viral infection, bronchitis, influenza and pharyngitis Patient data External records reviewed:: [facility] previous records (Reviewed prior ED records from 09/20/24. Patient was seen for Acute dehydration.) Clinical information provided by:: patient Social determinants that could affect healthcare access:: none Patient has the following chronic illnesses:: Hypertension, Gall Bladder Disease, Arthritis How is presenting disease/condition affected by chronic disease/condition?: uneffected by Evaluation data The following diagnostics were reviewed and interpreted by me:: lab results and radiology exam(s) Lab and/or radiology exams considered but not ordered:: None Interpretation Summary: RADIOLOGY CXR, my interpretation: reviewed, interpreted, and agreed with radiologist report; see below. Pending official radiology report. LABS RBC 4.02, Hgb 11.3, Hct 34.2%, RDW Std. Deviation 52.4, Immature Gran # 0.03. Sodium 146, Potassium 2.8, Chloride 109, BUN/Creatinine Ratio 10, Glucose 128, Calcium 8.2, Corrected Calcium 8.2, AST 146, ALT 68, Alkaline Phosphatase 313, Ethyl Alcohol 192.2. Medications / Prescriptions Medications or Prescriptions considered but not ordered:: None Medication administrations:: Medication Administration History Discontinued Medications Albuterol/Ipratropium (Albuterol/Ipratropium (Duoneb) Rt Nisha 3 Ml Nebu) 3 ml INH X1 ONE Stop: 11/02/24 05:43 Azithromycin (Azithromycin 250 Mg Tablet) 500 mg PO X1 ONE Stop: 11/02/24 04:21 Last Admin: 11/02/24 05:25 Dose: 500 mg Documented By: KHANH Ceftriaxone Sodium/Dextrose (Rocephin/D5w 1gm Iv Premix) 1 gm in 50 mls @ 100 mls/hr IV X1 ONE Stop: 11/02/24 04:47 Last Admin: 11/02/24 05:25 Dose: 100 mls/hr Documented By: KHANH Sodium Chloride (Ns) 1,000 mls @ 999 mls/hr IV .Q1H1M ONE Stop: 11/02/24 05:21 Last Admin: 11/02/24 05:27 Dose: 999 mls/hr Documented By: KHANH Potassium Chloride (Kcl Ivpb) 10 meq in 100 mls @ 100 mls/hr IV X1 ONE Stop: 11/02/24 05:21 Last Admin: 11/02/24 05:28 Dose: 100 mls/hr Documented By: KHANH Magnesium Sulfate/Dextrose (Magnesium Sulfate Ivpb) 1 gm in 100 mls @ 100 mls/hr IV X1 ONE Stop: 11/02/24 05:21 Labetalol HCl (Labetalol Inj 5 Mg/Ml Vial 20 Ml) 10 mg IVP X1 ONE Stop: 11/02/24 04:19 Last Admin: 11/02/24 05:28 Dose: 10 mg Documented By: KHANH Potassium Chloride (Potassium Chloride 20 Meq Tabcr) 40 meq PO X1 ONE Stop: 11/02/24 04:22 Last Admin: 11/02/24 05:27 Dose: 40 meq Documented By: KHANH See above if any Consultations Consultation(s) initiated? (list below): No Diagnosis Upper Respiratory Differential Diagnosis: upper respiratory infection, viral infection, bronchitis, influenza and pharyngitis Most likely diagnosis given after review of the tests above:: Alcohol use, cough Admission Indicated Admission indicated?: not indicated Explain why admission is indicated or not indicated:: Does not meet admission criteria Admission Request Was there a request for admission?: No Disposition Plan Disposition Plan: Discharge Discharge Attestation Discharge Attestation: The patient and all family members were given an opportunity to ask questions and understood the discharge instructions. Discharge instructions specifically effects, indications for sooner follow up or return to the emergency department, and the expected course of current diagnosis. Patient condition: Stable Discharge Plan Plan Patient Disposition: HOME (Self Care) Patient condition on transfer: Stable Prescriptions/Referrals Prescriptions/Med Rec: No Action hydrochlorothiazide 25 mg tablet 25 mg PO QAM Qty: 30 1RF amlodipine 5 mg tablet 5 mg PO DAILY Referrals: Jacinto Diaz MD [Primary Care Provider] - In 1 week Problem List Clinical Impression: Cough, Alcohol use Patient/Caregiver Discharge Instructions Education Materials: ED Cough Chronic Uncertain Cause Adult, ED Alcohol Abuse Additional Instructions: DISCHARGE INSTRUCTIONS Even though you have been discharged from the Emergency Department, there are several things that you should do to ensure that you receive proper care: 1. DO READ your discharge instructions as these contain important information concerning your medical care. 2. If medication has been prescribed for your condition, fill the prescription as soon as possible and follow the directions on the medication. 3. RETURN AT ONCE TO THE EMERGENCY DEPARTMENT if you have any problems or concerns. These include but are not limited to fever, worsening pain(belly, chest, head, etc?), worsening shortness of breath, uncontrollable bleeding, inability to tolerate food and water, or any condition that makes you question your well-being. Also, if your symptoms do not improve in the next 12-24 hours, return to the ER or seek medical care immediately. 4. Be sure to follow up with your regular physician or specialist as instructed at discharge as this is the best way to ensure that you receive the very best of care. If you do not have a primary care physician, please contact a physician group and make an appointment. 5. Please visit [employer] for coupons regarding your prescriptions. It is a free service for you to use and can help reduce the cost of your medication. We would like to thank you for coming today and our hope is that we served you and your family well during your stay Print Language: Indonesian Stand Alone Forms: [employer] Award Info., Patient Portal Info Letter
[2024-11-02] MEDS: cefTRIAXone/D5w 1gm IV premix 1 GM/50 ML BAG IV (05:25)
[2024-11-02] MEDS: AZITHROMYCIN 250 MG TABLET 500 MG PO (05:25)
[2024-11-02] MEDS: POTASSIUM CHLORIDE 20 mEq TABCR 40 MEQ PO (05:27)
[2024-11-02] MEDS: SODIUM CHLORIDE 0.9% 1000 ML 1,000 ML 999 ML IV (05:27)
[2024-11-02 05:28] VITALS: BP 191/104; PULSE 75
[2024-11-02] MEDS: LABETALOL INJ 5 MG/ML VIAL 20 ML 10 MG IVP (05:28)
[2024-11-02] MEDS: POTASSIUM CHL 10 mEq IVPB 10 MEQ/100 ML BAG 100 MEQ IV (05:28)
[2024-11-02 05:40] VITALS: BP 165/89
[2024-11-02] MEDS: Magnesium Sulfate 1 gm Ivpb 1 GM/100 ML BAG IV (06:05)
[2024-11-02] MEDS: ALBUTEROL/IPRATROPIUM (Duoneb) RT SOL 3 ML NEBU INH (06:17)
[2024-11-02 06:18] VITALS: PULSE 78; RESP 18; O2SAT 100
[2024-11-02 06:25] VITALS: BP 175/96; PULSE 81; RESP 18; TEMP 36.9; O2SAT 99
== END 2024-11-02 07:12 | disposition home or self-care (01) ==
PROVIDERS: Physician Assistant; Emergency Provider Emergency Medicine; PCP Family Medicine
DX: F10.90 Alcohol use, unspecified, uncomplicated (principal); Y90.6 Blood alcohol level of 120-199 mg/100 ml; R05.9 Cough, unspecified; R07.9 Chest pain, unspecified
CPT/HCPCS: 36415; 71046; 80053; 80320; 83605; 83880; 84145; 84484; 85025; 87400; 94640; 96365; 96375; 99284; A9270; J0696; J3475; J3480; J3490; J7030; G0480; J1920

== ENCOUNTER 2024-11-15 11:01 | Observation (INO) | payer MEDICAID, SELFPAY ==
[2024-11-15 11:02] VITALS: BMI 30.9
[2024-11-15 11:12] VITALS: BP 182/115; PULSE 86; RESP 18; TEMP 36.3; O2SAT 98; BMI 28.2
--- NOTE | 2024-11-15 11:19 | PD.EDADULT ---
ED General RME/HPI General Chief complaint: General Adult/Misc Complain Stated complaint: DRANK TO MUCH VODKA Time Seen by Provider: 11/15/24 11:13 Source: patient Arrival date/time: 11/15/24 11:01 49-year-old male with no known medical history presents to the emergency room with a chief complaint of drinking a lot of vodka yesterday. Today the patient feels weak fatigued and abnormal. Mode of arrival: ambulatory Limitations: no limitations Related Data Home Medications ?Medication ?Instructions ?Recorded ?Confirmed amlodipine 5 mg tablet 5 mg PO DAILY 09/20/24 09/20/24 Previous Rx's ?Medication ?Instructions ?Recorded hydrochlorothiazide 25 mg tablet 25 mg PO QAM #30 tabs 09/15/21 Allergies Allergy/AdvReac Type Severity Reaction Status Date / Time No Known Allergies Allergy Verified 11/15/24 11:05 ED Exam General Limitations: Present no limitations Course Orders Category Date Time Status Alcohol, Blood Medical Stat Lab 11/15/24 11:18 Ordered CBC Stat Lab 11/15/24 11:18 Ordered CMP [Comprehensive Metabolic Panel] Stat Lab 11/15/24 11:18 Ordered Lipase Stat Lab 11/15/24 11:18 Ordered PT [Prothrombin Time with INR] Stat Lab 11/15/24 11:18 Ordered PTT [Partial Thromboplastin Time] Stat Lab 11/15/24 11:18 Ordered Vital Signs Vital signs: Vital Signs Temperature 97.4 F 11/15/24 11:12 Pulse Rate 86 11/15/24 11:12 Respiratory Rate 18 11/15/24 11:12 Blood Pressure 182/115 H 11/15/24 11:12 Pulse Oximetry (%) 98 11/15/24 11:12 Oxygen Delivery Method Room Air 11/15/24 11:12 Discharge Plan Prescriptions/Referrals Prescriptions/Med Rec: No Action hydrochlorothiazide 25 mg tablet 25 mg PO QAM Qty: 30 1RF amlodipine 5 mg tablet 5 mg PO DAILY Patient/Caregiver Discharge Instructions Print Language: Bulgarian
[2024-11-15 11:49] LABS: Basophils # (Auto) 0.1 Thou/mm3 (0.0-0.2); Basophils % (Auto) 1 % (0-2.5); Eosinophils # (Auto) 0.1 Thou/mm3 (0.0-0.5); Eosinophils % (Auto) 1 % (0-10); Hematocrit 37.2 % (41.0-53.0); Hemoglobin 12.8 g/dL (13.5-16.0); Immature Granulocytes % (Auto) 0 % (0-0); Immature Granulocytes Auto 0.04 Thou/mm3 (0.00-0.00); Lymphocytes # (Auto) 1.2 Thou/mm3 (1.0-4.8); Lymphocytes % (Auto) 9 % (10-50); Mean Corpuscular HGB Conc 34.4 g/dl (31.0-37.0); Mean Corpuscular Hemoglobin 28.6 pg (25.0-35.0); Mean Corpuscular Volume 83 fL (80-100); Monocytes # (Auto) 0.9 Thou/mm3 (0.0-0.8); Monocytes % (Auto) 7 % (0-12); Neutrophils # (Auto) 10.5 Thou/mm3 (1.8-7.7); Neutrophils % (Auto) 82 % (37-80); Nucleated Red Blood Cell % 0 /100 WBC (0); Platelet Count 171 Thou/mm3 (140-440); RDW Standard Deviation 48.4 fL (35.1-43.9); Red Blood Count 4.47 Miln/mm3 (4.50-5.90); White Blood Count 12.8 Thou/mm3 (3.8-10.6)
[2024-11-15 12:04] LABS: INR 1.1 (0.9-1.3); Partial Thromboplastin Time 27.9 Seconds (22.0-36.0); Prothrombin Time 11.9 Seconds (9.0-12.2)
[2024-11-15 12:16] LABS: Alanine Aminotransferase 61 U/L (10-49); Albumin, Serum 4.5 gm/dL (3.5-5.0); Albumin/Globulin Ratio 1.4 (1.2-2.2); Alcohol, Blood Medical 180.5 mg/dL (0-10.0); Alkaline Phosphatase 347 U/L (46-116); Anion Gap 16 (7-16); Aspartate Amino Transferase 128 U/L (0-34); BUN/Creatinine Ratio 7 Ratio (12-20); Bilirubin,Total 1.6 mg/dL (0.3-1.2); Blood Urea Nitrogen 7 mg/dL (9-23); Calcium 9.2 mg/dL (8.3-10.6); Calcium (Corrected) 9.2 mg/dL (8.5-10.1); Carbon Dioxide 24.3 mMol/L (20.0-31.0); Chloride 101 mMol/L (98-107); Estimated Creatinine Clearance 107.3 mL/min (>60); Globulin 3.3 gm/dL (2.3-3.5); Glucose 119 mg/dL (74-106); Lipase 45 U/L (12-53); Osmolality,Calculated 280 (275-295); Sodium 141 mMol/L (136-145); Total Protein 7.8 gm/dL (5.7-8.2); eGFR > 60 See Note
[2024-11-15 12:23] LABS: Potassium 2.4 mMol/L (3.4-5.1)
--- NOTE | 2024-11-15 12:35 | PD.EDRME ---
Rapid Medical Screening Exam RME Arrival date/time: 11/15/24 11:01 49-year-old male with no known medical history presents to the emergency room with a chief complaint of drinking a lot of vodka yesterday. Today the patient feels weak fatigued and abnormal. I have greeted and performed a focused initial assessment of this patient. A comprehensive ED assessment and evaluation of the patient, analysis of all test results, and completion of the medical decision making process will be conducted by additional ED providers. Chief Complaint: General Adult/Misc Complain Time Seen by Provider: 11/15/24 11:13 Vital signs: Vital Signs Temperature 97.4 F 11/15/24 11:12 Pulse Rate 86 11/15/24 11:12 Respiratory Rate 18 11/15/24 11:12 Blood Pressure 182/115 H 11/15/24 11:12 Pulse Oximetry (%) 98 11/15/24 11:12 Oxygen Delivery Method Room Air 11/15/24 11:12 Vital signs reviewed by provider: Yes
[2024-11-15 15:56] VITALS: BP 174/108; PULSE 87; RESP 18; TEMP 36.3; O2SAT 98
[2024-11-15 16:34] VITALS: PULSE 78
--- NOTE | 2024-11-15 16:41 | XR_ITS ---
Examination: Abdomen sonogram, Limited Date and time of exam: November 15, 2024 1649 hours INDICATIONS: Elevated total bilirubin on laboratory examination today, with mid abdominal pain nausea vomiting Technique: Real-time cortes scale transabdominal sonographic images of the upper abdomen obtained. Findings: Contracted gallbladder with multiple stones Gallbladder wall 0.4 cm no edema Common bile duct 0.4 cm no common bile duct stones Pancreatic head 3.2 cm Liver 20.7 cm fatty infiltration Normal hepatopedal portal venous flow Patent IVC IMPRESSION: Cholelithiasis, negative for cholecystitis If common bile duct stone is a clinical consideration, recommend MRCP follow-up
--- NOTE | 2024-11-15 16:43 | EKG_ITS ---
[facility] Test Date: 2024-11-15 Pat Name: CECY PINEDA Department: Room: - Gender: Male Test Tube Maker: : 1975 Requested By: Donell Rivas Order Number: [id number] Reading MD: Donell Rivas Measurements Intervals [place] Rate: 72 P: 53 GA: 162 QRS: 16 QRSD: 106 T: 46 QT: 441 QTc: 485 Interpretive Statements SINUS RHYTHM INFERIOR MYOCARDIAL INFARCTION , PROBABLY OLD [40+ ms Q WAVE AND/OR ST/T ABNORMALITY IN II/aVF] Compared to ECG 09/09/2024 02:04:44 Myocardial infarct finding now present /store/S0/[id number].pdf
[2024-11-15] MEDS: LORazepam 2 MG/ML VIAL 1 MG IVP (16:47)
[2024-11-15] MEDS: SODIUM CHLORIDE 0.9% 1000 ML 1,000 ML 100 ML IV (16:58)
[2024-11-15] MEDS: POTASSIUM CHL 10 mEq IVPB 10 MEQ/100 ML BAG 100 MEQ IV ×3 (16:58→19:41)
[2024-11-15] MEDS: Magnesium Sulfate 4 GM Ivpb 4 GM/50 ML BAG IV (17:01)
[2024-11-15 17:08] LABS: Magnesium 1.6 mg/dL (1.6-2.6)
[2024-11-15] MEDS: POTASSIUM CHLORIDE 20 mEq TABCR 40 MEQ PO (17:08)
[2024-11-15] MEDS: ONDANSETRON INJ 2 MG/ML INJ 2 ML 4 MG IVP ×2 (17:13→20:41)
[2024-11-15] MEDS: THIAMINE INJ 250 MG in SODIUM CHLORIDE 0.9% 100 ML 205 MG IV (17:16)
--- NOTE | 2024-11-15 17:45 | PD.EDADULT ---
ED General RME/HPI General Chief complaint: General Adult/Misc Complain Stated complaint: DRANK TO MUCH VODKA Time Seen by Provider: 11/15/24 11:13 Arrival date/time: 11/15/24 11:01 RME / HPI RME / HPI narrative: 11/15/24 11:01 The patient is a 49-year-old male with past medical history of hypertension, Alcohol use disorder, and methamphetamine abuse disorder presented to ED with complaint of generalized weakness for 1 day. He reported drinking a lot of vodka yesterday and this morning he was fatigued. He reported mild headache, but denied any dizziness, chest pain, SOB, abdominal pain, any changes in bowel or bladder habit, leg swelling, or vomiting. Related Data Home Medications ?Medication ?Instructions ?Recorded ?Confirmed amlodipine 5 mg tablet 5 mg PO DAILY 09/20/24 09/20/24 Previous Rx's ?Medication ?Instructions ?Recorded hydrochlorothiazide 25 mg tablet 25 mg PO QAM #30 tabs 09/15/21 Allergies Allergy/AdvReac Type Severity Reaction Status Date / Time No Known Allergies Allergy Verified 11/15/24 11:05 Review of Systems Review of Systems Systems Reviewed: All systems reviewed, normal except as documented (Above) Past Medical History Past Medical History CARDIAC: Positive Hypertension GASTROINTESTINAL: Positive Gastrointestinal Disorders and Gall Bladder Disease MUSCULOSKELETAL: Positive Arthritis OTHER HISTORY: Positive Falls Family History FAMILY HISTORY: Positive Family Cardiac Disorders and Family Cancer Social History SECOND HAND EXPOSURE: Yes (sister including marijuana) ALCOHOL: Current ED Exam Narrative Physical exam: General: No acute distress, Alert and Oriented x 3 HEENT: Mildly dry mucous membranes, oropharynx clear Neck: Supple, No masses, No JVD CVS: S1S2 Regular rate and rhythm, No murmurs, rubs or gallops Lungs: Clear to auscultation with no accessory use, no wheeze no rhonchi Abd: Soft, NT/ND, +BS, no organomegaly Ext: No edema, warm and well perfused, moderate tremors in all 4 limbs Skin: No rash Psych: Mildly anxious Course Quality Measures none Orders Category Date Time Status Airway Controller NOW Care 11/15/24 16:42 Completed EKG (ED ONLY) *Do not use* NOW Care 11/15/24 16:43 Completed EKG (ED Only) Stat Exams 11/15/24 16:43 Draft US gall bladder Stat Exams 11/15/24 16:41 Completed Alcohol, Blood Medical Stat Lab 11/15/24 11:25 Completed CBC Stat Lab 11/15/24 11:25 Completed CMP [Comprehensive Metabolic Panel] Stat Lab 11/15/24 11:25 Completed Drug Screen,Urine Stat Lab 11/15/24 17:49 Ordered Lipase Stat Lab 11/15/24 11:25 Completed Magnesium Stat Lab 11/15/24 11:25 Completed PT [Prothrombin Time with INR] Stat Lab 11/15/24 11:25 Completed PTT [Partial Thromboplastin Time] Stat Lab 11/15/24 11:25 Completed LORazepam [Ativan Inj] Med 11/15/24 16:35 Discontinued 1 mg IVP X1 ONE Magnesium Sulfate 4 GM Ivpb [Magnesium Sulfate Ivpb] Med 11/15/24 16:37 Active 4 gm in 50 ml IV X1 Ondansetron Inj [Zofran Inj] Med 11/15/24 16:44 Discontinued 4 mg IVP Q4H PRN POTASSIUM CHL 10 mEq IVPB [Kcl Ivpb] Med 11/15/24 16:36 Active 10 meq in 100 ml IV Q1H Potassium Chloride [K-Dur] Med 11/15/24 16:43 Discontinued 40 meq PO X1 ONE Sodium Chloride 0.9% 1000 ml [Ns] 1,000 ml Med 11/15/24 16:40 Active IV 100 mls/hr Thiamine Inj [Vitamin B-1 Inj] 250 mg Med 11/15/24 16:38 Discontinued Sodium Chloride 0.9% [Ns] 100 ml IV X1 Vital Signs Vital signs: Vital Signs Temperature 97.4 F 11/15/24 11:12 Pulse Rate 86 11/15/24 11:12 Respiratory Rate 18 11/15/24 11:12 Blood Pressure 182/115 H 11/15/24 11:12 Pulse Oximetry (%) 98 11/15/24 11:12 Oxygen Delivery Method Room Air 11/15/24 11:12 Discharge Plan Plan Patient Disposition: Admit Acute Care w/in Hospital Discharge Disposition comment: Hospitalist admit Problem List Clinical Impression: Alcohol withdrawal, Acute hypokalemia MD Attestation MD Attestation I, John Reynolds MD, have reviewed the history, exam, and assessment of the patient. I have evaluated the patient independently and agree with the plan of care documented by [ ]. All diagnostic studies were reviewed and discussed. I confirm the diagnosis as documented by the Resident. I was present during the Medical Decision Making for this patient. The patient's plan of care was created between myself and the Resident and consistent with our discussion of the patient's case. Patient has significant hypokalemia and alcohol withdrawal seen by the resident and myself will benefit from admission. MDM Narrative Sign out note: The patient is a 49-year-old male with past medical history of hypertension, Alcohol use disorder, and methamphetamine abuse disorder presented to ED with complaint of generalized weakness for 1 day. He reported drinking a lot of vodka yesterday and this morning he was fatigued. He reported mild headache, but denied any dizziness, chest pain, SOB, abdominal pain, any changes in bowel or bladder habit, leg swelling, or vomiting. His initial vitals were blood pressure 182/115 with repeat blood pressure 174/108, with other vitals WNL. Labs revealed white count 12.8, hemoglobin 12.8, coagulation panel WNL, chemistry panel revealed potassium 2.4, blood sugar 119, total bilirubin 1.6, AST/ALT 128/61, ALP 347, Ethyl alcohol level 180, EKG revealed sinus rhythm, gallbladder ultrasound revealed Cholelithiasis, negative for cholecystitis. The patient was given IV thiamine 250 Mg x 1, KCl 40 mEq IV, KCl 40 mEq p.o. x 1, pantoprazole 40 Mg p.o. x 1, magnesium sulfate 4 g x 1 and admitted to the telemetry unit. Clinical Information Provided by patient Medical Records Reviewed [facility] Medication Administration(s) Medication Administration History Acetaminophen (Acetaminophen 325 Mg Tablet) 650 mg PO Q6H PRN PRN Reason: Fever >101.5 Stop: 12/15/24 18:01 Chlordiazepoxide HCl (Chlordiazepoxide Hcl 25 Mg Capsule) 50 mg PO Q8HR [facility] Stop: 11/20/24 21:59 Enoxaparin Sodium (Enoxaparin Sod Inj 40 Mg/0.4 Ml Syringe) 40 mg SC QDAY [facility] Stop: 11/30/24 08:59 Potassium Chloride (Kcl Ivpb) 10 meq in 100 mls @ 100 mls/hr IV Q1H [facility] Stop: 11/15/24 20:35 Last Admin: 11/15/24 18:22 Dose: 100 mls/hr Documented By: Infusion: 11/15/24 17:58 Dose: Infused Documented By: Admin: 11/15/24 16:58 Dose: 100 mls/hr Documented By: ROXANNA Magnesium Sulfate (Magnesium Sulfate Ivpb) 4 gm in 50 mls @ 12.5 mls/hr IV X1 ONE Stop: 11/15/24 20:36 Last Admin: 11/15/24 17:01 Dose: 12.5 mls/hr Documented By: ROXANNA Sodium Chloride (Ns) 1,000 mls @ 100 mls/hr IV .Q10H [facility] Stop: 12/15/24 16:39 Last Admin: 11/15/24 16:58 Dose: 100 mls/hr Documented By: ROXANNA Lorazepam (Lorazepam 2 Mg/Ml Vial) 2 mg IVP X1 PRN PRN Reason: Breakthrough Agitation Lorazepam (Lorazepam 2 Mg/Ml Vial) 0.5 mg IV Q2HR PRN PRN Reason: CIWA SCORE 8-13 Stop: 11/20/24 18:04 Lorazepam (Lorazepam 2 Mg/Ml Vial) 1 mg IV Q2HR PRN PRN Reason: CIWA SCORE 14-19 Stop: 11/20/24 18:04 Lorazepam (Lorazepam 2 Mg/Ml Vial) 2 mg IV Q2HR PRN PRN Reason: CIWA SCORE 20-25 Stop: 11/20/24 18:04 Multivitamins (Multivitamins Tablet) 1 tab PO QDAY [facility] Stop: 12/16/24 08:59 Ondansetron HCl (Ondansetron Inj 2 Mg/Ml Inj 2 Ml) 4 mg IVP Q6H PRN; Protocol PRN Reason: NAUSEA OR VOMITING Stop: 12/15/24 18:01 Pantoprazole Sodium (Pantoprazole 40 Mg Tablet) 40 mg PO QDAY [facility] Stop: 12/16/24 08:59 Discontinued Medications Chlordiazepoxide HCl (Chlordiazepoxide Hcl 25 Mg Capsule) 25 mg PO Q8HR [facility] Stop: 11/20/24 21:59 Folic Acid (Folic Acid Inj 1 Mg/0.2 Ml) 1 mg IVP X1 ONE Stop: 11/15/24 18:02 Thiamine HCl 250 mg/ Sodium (Chloride) 102.5 mls @ 205 mls/hr IV X1 ONE Stop: 11/15/24 17:07 Last Infusion: 11/15/24 18:31 Dose: Infused Documented By: Admin: 11/15/24 17:16 Dose: 205 mls/hr Documented By: ROXANNA Magnesium Sulfate (Magnesium Sulfate Ivpb) 2 gm in 50 mls @ 25 mls/hr IV X1 ONE Stop: 11/15/24 20:00 Lorazepam (Lorazepam 2 Mg/Ml Vial) 1 mg IVP X1 ONE Stop: 11/15/24 16:36 Last Admin: 11/15/24 16:47 Dose: 1 mg Documented By: ROXANNA Ondansetron HCl (Ondansetron Inj 2 Mg/Ml Inj 2 Ml) 4 mg IVP Q4H PRN; Protocol PRN Reason: NAUSEA OR VOMITING Stop: 12/15/24 16:43 Last Admin: 11/15/24 17:13 Dose: 4 mg Documented By: ROXANNA Potassium Chloride (Potassium Chloride 20 Meq Tabcr) 40 meq PO X1 ONE Stop: 11/15/24 16:44 Last Admin: 11/15/24 17:08 Dose: 40 meq Documented By: ROXANNA Thiamine HCl (Thiamine Inj 100 Mg/Ml Vial 2 Ml) 100 mg IVP X1 ONE Stop: 11/15/24 18:02 Consultations/Discussions re: Management Consult #1: Date/time: 11/15/24 5:55 pm Physician, specialty, service, details: Dr Keli MD PGY 2 from hospitalist team was consulted regarding hospital admission. History and physical exam, labs, imaging and EKG findings were discussed. Hospitalist team agreed to admit the patient to hospital. Diagnosis Differential diagnosis: Alcohol withdrawal syndrome, electrolyte imbalance Most likely dx, and/or detailed dx discussion: Alcohol withdrawal syndrome Dispositon Disposition: Admit
--- NOTE | 2024-11-15 18:21 | ESHP_ITS ---
<Statement entered by Oneil Dickey MD - 11/16/24 13:44> Patient is 49 y/o male patient with medical history of alcohol use disorder, HTN and cholelithiasis who came to ED for abdominal pain and generalized weakness. Patient drinks 1 gallon of vodka per day which he started x3 years ago. Patient denies NVD, hematemesis and hematochezia. On admission CIWA was 10, WBC 12.8, k 2.4, T. bili 1.6, ALP 347 and ethyl alcohol level of 180.5. Gallbladder US indicated cholelithiasis. Patient will be admitted for alcohol withdrawal. Documentation for date of: 11/15/24 HPI History of Present Illness Chief complaint: General weakness and abdominal pain History of present illness: A 49-year-old male with significant past medical history of hypertension, not on any medication, cholelithiasis presented the hospital with chief complaints of generalized weakness, abdominal pain and feeling well since the morning on day of admission. Patient endorsed that he is binge drinking alcohol, gallon every single day and last alcohol drink was yesterday. Also endorsed that he is having poor appetite and poor intake of food with continuous alcohol intake. Patient reported that he is doing this for 3 years. Also had history of vomitings and diarrhea for a long time on and off. Denies any hematemesis, blood or mucus in the stool. ED course: - Vitals at the time of admission are significant for blood pressure 182/115 mmHg - Labs are significant for WBC 12.8, hemoglobin 12.8, potassium 2.4, total bilirubin 1.6, AST 128, ALT 61, ALP 347, ethyl alcohol 180.5 - Gallbladder ultrasound significant for cholelithiasis - EKG showed normal sinus rhythm with no ST and T wave changes Past medical history: Hypertension, cholelithiasis Past surgical history: Nonsignificant Social history: Chronic alcohol, 1 gallon every day since 3 years, denies smoking, other illicit drug abuse. Review of Systems Review of Systems Systems Reviewed: All systems reviewed, normal except as documented Past Medical History Past Medical History CARDIAC: Positive Hypertension GASTROINTESTINAL: Positive Gastrointestinal Disorders and Gall Bladder Disease MUSCULOSKELETAL: Positive Arthritis OTHER HISTORY: Positive Falls Family History FAMILY HISTORY: Positive Family Cardiac Disorders and Family Cancer Social History SECOND HAND EXPOSURE: Yes (sister including marijuana) ALCOHOL: Current Exam Vital Signs Temp Pulse Resp BP Pulse Ox O2 Del Method 97.4 F 78 18 174/108 H 98 Room Air 11/15/24 15:56 11/15/24 16:34 11/15/24 15:56 11/15/24 15:56 11/15/24 15:56 11/15/24 11:12 Narrative Exam General: Awake. Congested eyes HEENT: Normocephalic, atraumatic, mucous membranes moist. Heart: Regular rate and rhythm, no murmurs. Lungs: Clear to auscultation with no wheezing or crackles. Abdomen: Soft, nondistended, nontender, positive bowel sounds. ?No guarding or rebound tenderness. Neurologic: Alert and oriented x3, no gross neurological deficit, and patient able to move all 4 extremities. Extremities: No edema. Skin: No rash or ecchymoses. Results: Labs 11/16/24 05:19 11/16/24 05:19 Labs: Short CBC 11/15/24 Range/Units 11:25 WBC 12.8 H (3.8-10.6) Thou/mm3 Hgb 12.8 L (13.5-16.0) g/dL Hct 37.2 L (41.0-53.0) % Plt Count 171 D (140-440) Thou/mm3 BMP 11/15/24 11:25 Sodium 141 Potassium 2.4 L* Chloride 101 Carbon Dioxide 24.3 BUN 7 L Creatinine 1.0 Glucose 119 H Calcium 9.2 Liver Function 11/15/24 Range/Units 11:25 Total Bilirubin 1.6 H (0.3-1.2) mg/dL AST 128 H (0-34) U/L ALT 61 H (10-49) U/L Alkaline Phosphatase 347 H (46-116) U/L Albumin 4.5 (3.5-5.0) gm/dL Quality Measures Quality Measures VTE prophylaxis Medications Home Medications and Allergies Home Medications ?Medication ?Instructions ?Recorded ?Confirmed ?Type amlodipine 5 mg tablet 5 mg PO DAILY 09/20/2411/15 History lisinopril 40 mg tablet 40 mg PO QDAY 11/15/2411/15 History Allergies Allergy/AdvReac Type Severity Reaction Status Date / Time No Known Allergies Allergy Verified 11/15/24 11:05 Visit Medications Acetaminophen (Acetaminophen 325 Mg Tablet) 650 mg PO Q6H PRN PRN Reason: Fever >101.5 Stop: 12/15/24 18:01 Chlordiazepoxide HCl (Chlordiazepoxide Hcl 25 Mg Capsule) 25 mg PO Q8HR [facility] Stop: 11/20/24 21:59 Enoxaparin Sodium (Enoxaparin Sod Inj 40 Mg/0.4 Ml Syringe) 40 mg SC QDAY [facility] Stop: 11/30/24 08:59 Potassium Chloride (Kcl Ivpb) 10 meq in 100 mls @ 100 mls/hr IV Q1H [facility] Stop: 11/15/24 20:35 Last Admin: 11/15/24 16:58 Dose: 100 mls/hr Magnesium Sulfate (Magnesium Sulfate Ivpb) 4 gm in 50 mls @ 12.5 mls/hr IV X1 ONE Stop: 11/15/24 20:36 Last Admin: 11/15/24 17:01 Dose: 12.5 mls/hr Sodium Chloride (Ns) 1,000 mls @ 100 mls/hr IV .Q10H [facility] Stop: 12/15/24 16:39 Last Admin: 11/15/24 16:58 Dose: 100 mls/hr Lorazepam (Lorazepam 2 Mg/Ml Vial) 2 mg IVP X1 PRN PRN Reason: Breakthrough Agitation Lorazepam (Lorazepam 2 Mg/Ml Vial) 0.5 mg IV Q2HR PRN PRN Reason: CIWA SCORE 8-13 Stop: 11/20/24 18:04 Lorazepam (Lorazepam 2 Mg/Ml Vial) 1 mg IV Q2HR PRN PRN Reason: CIWA SCORE 14-19 Stop: 11/20/24 18:04 Lorazepam (Lorazepam 2 Mg/Ml Vial) 2 mg IV Q2HR PRN PRN Reason: CIWA SCORE 20-25 Stop: 11/20/24 18:04 Ondansetron HCl (Ondansetron Inj 2 Mg/Ml Inj 2 Ml) 4 mg IVP Q6H PRN; Protocol PRN Reason: NAUSEA OR VOMITING Stop: 12/15/24 18:01 Pantoprazole Sodium (Pantoprazole 40 Mg Tablet) 40 mg PO QDAY [facility] Stop: 12/16/24 08:59 Discontinued Medications Folic Acid (Folic Acid Inj 1 Mg/0.2 Ml) 1 mg IVP X1 ONE Stop: 11/15/24 18:02 Thiamine HCl 250 mg/ Sodium (Chloride) 102.5 mls @ 205 mls/hr IV X1 ONE Stop: 11/15/24 17:07 Last Admin: 11/15/24 17:16 Dose: 205 mls/hr Magnesium Sulfate (Magnesium Sulfate Ivpb) 2 gm in 50 mls @ 25 mls/hr IV X1 ONE Stop: 11/15/24 20:00 Lorazepam (Lorazepam 2 Mg/Ml Vial) 1 mg IVP X1 ONE Stop: 11/15/24 16:36 Last Admin: 11/15/24 16:47 Dose: 1 mg Ondansetron HCl (Ondansetron Inj 2 Mg/Ml Inj 2 Ml) 4 mg IVP Q4H PRN; Protocol PRN Reason: NAUSEA OR VOMITING Stop: 12/15/24 16:43 Last Admin: 11/15/24 17:13 Dose: 4 mg Potassium Chloride (Potassium Chloride 20 Meq Tabcr) 40 meq PO X1 ONE Stop: 11/15/24 16:44 Last Admin: 11/15/24 17:08 Dose: 40 meq Thiamine HCl (Thiamine Inj 100 Mg/Ml Vial 2 Ml) 100 mg IVP X1 ONE Stop: 11/15/24 18:02 Assessment & Plan Plan A 49-year-old male with significant past medical history of hypertension, not on any medication, cholelithiasis presented the hospital with chief complaints of generalized weakness, abdominal pain since the morning on day of admission. # Alcohol use disorder # Alcohol withdrawal - Patient presented to the hospital with chief complaints of abdominal pain, palpitations, feeling unwell since this morning - Patient endorsed that his last drink was yesterday, about a gallon - At the time of admission are significant for blood pressure 182/115 mm Hg - Labs are significant for leukocytosis, hypokalemia, hyperbilirubinemia, transaminitis, ethyl alcohol 180.5 - CIWA is 13 at the time of admission - Received fluids and thiamine in the ED Plan - Started on CIWA protocol - Seizure precautions - Librium 25 Mg p.o. 3 times daily - Multivitamin # Elevated blood pressures # History of hypertension - The elevated blood pressures could be due to alcohol withdrawal - Patient endorsed that he had history of hypertension and is using the carvedilol, hydrochlorothiazide but stopped using it since 1 month Plan - Patient is already placed on CIWA protocol - Will continue to monitor blood pressures - Add medications as needed # Hypokalemia/hypomagnesemia # Secondary to poor oral intake and alcohol use - Potassium at the time of admission is 2.4, magnesium is 1.6 - Repleted with 40 mill equivalents of oral potassium and 40 mill equivalents of IV potassium, 4 g of IV magnesium Plan - Will continue to monitor electrolytes and replete as needed # Alcoholic hepatitis - Patient endorsed that he is having abdominal pain and vomitings - Total bilirubin is 1.6, AST 128, ALT 61, ALP 347 - Gallbladder ultrasound showed cholelithiasis Plan - Will continue to monitor LFTs - Recommended alcohol cessation # Chronic Cholelithiasis - Patient endorsed that he had history of gallstones - Gallbladder ultrasound showed cholelithiasis Hospital Maintenance: Dispo: Telemetry DVT ppx: Enoxaparin GI ppx: Protonix Diet: Regular IV lines: Peripheral Code status: Full Patient plan of care was discussed with the attending physician, Dr. Arroyo and senior resident Dr. Keli Hill, PGY1 Attending Provider Attestation/Addendum Wanda, Elisabet Arroyo, , attest that I was physically present for the shipley portions of the service and evaluated the patient with the resident and I reviewed and discussed the case with the resident and agree with the resident's findings and plans of care as documented above Patient is a 49-year-old male with past medical his hypertension and chronic alcohol use and alcohol withdrawal who presents the ED due to generalized weakness and nausea and vomiting. Patient had recently been admitted for alcohol withdrawal about 3 weeks ago. Patient denies any history of alcoholic withdrawal seizures. Patient states that he has been unsteady and has headache. He drinks about 1 gallon of vodka daily. He was found to have hypokalemia likely secondary to vomiting and diarrhea. Will repeat electrolytes. Will admit patient to telemetry for further workup and medical management of acute alcohol withdrawal. CIWA score is currently 13. Will repeat potassium level.
[2024-11-15 19:39] VITALS: BP 167/101; PULSE 76; RESP 14; TEMP 37; O2SAT 99
[2024-11-15] MEDS: FOLIC ACID INJ 1 MG/0.2 ML IVP (19:43)
[2024-11-15] MEDS: POTASSIUM CHL 10 mEq IVPB 10 MEQ/100 ML BAG 50 MEQ IV (20:42)
[2024-11-15] MEDS: chlordiazePOXIDE HCl 25 MG CAPSULE 50 MG PO (21:01)
[2024-11-16] VITALS (9 sets, daily range): BP systolic 135–160; BP diastolic 82–106; PULSE 70–87; RESP 13–22; TEMP 36.1–36.3; O2SAT 94–98
[2024-11-16] MEDS: SODIUM CHLORIDE 0.9% 1000 ML 1,000 ML 100 ML IV (02:30)
[2024-11-16] MEDS: ONDANSETRON INJ 2 MG/ML INJ 2 ML 4 MG IVP ×2 (02:35→19:23)
[2024-11-16] MEDS: chlordiazePOXIDE HCl 25 MG CAPSULE 50 MG PO (05:05)
[2024-11-16 05:47] LABS: Basophils % (Auto) 0 % (0-2.5); Eosinophils # (Auto) 0.2 Thou/mm3 (0.0-0.5); Eosinophils % (Auto) 3 % (0-10); Hematocrit 35.6 % (41.0-53.0); Hemoglobin 11.7 g/dL (13.5-16.0); Immature Granulocytes % (Auto) 1 % (0-0); Immature Granulocytes Auto 0.04 Thou/mm3 (0.00-0.00); Lymphocytes # (Auto) 0.8 Thou/mm3 (1.0-4.8); Lymphocytes % (Auto) 11 % (10-50); Mean Corpuscular HGB Conc 32.9 g/dl (31.0-37.0); Mean Corpuscular Hemoglobin 28.8 pg (25.0-35.0); Mean Corpuscular Volume 88 fL (80-100); Monocytes # (Auto) 0.5 Thou/mm3 (0.0-0.8); Monocytes % (Auto) 6 % (0-12); Neutrophils # (Auto) 5.9 Thou/mm3 (1.8-7.7); Neutrophils % (Auto) 79 % (37-80); Nucleated Red Blood Cell % 0 /100 WBC (0); Platelet Count 120 Thou/mm3 (140-440); RDW Standard Deviation 51.5 fL (35.1-43.9); Red Blood Count 4.06 Miln/mm3 (4.50-5.90); White Blood Count 7.5 Thou/mm3 (3.8-10.6)
[2024-11-16 06:31] LABS: Amphetamine/Methamp Scrn,U Positive (Negative); Barbiturate Screen,Urine Negative (Negative); Benzodiazepines Screen,Urine Negative (Negative); Benzoylecgonine Screen, Ur Negative (Negative); Fentanyl Screen,Urine Negative (Negative); Opiate Screen,Urine Negative (Negative); THC Screen,Urine Negative (Negative)
[2024-11-16 06:33] LABS: Anion Gap 12 (7-16); BUN/Creatinine Ratio 8 Ratio (12-20); Blood Urea Nitrogen 8 mg/dL (9-23); Carbon Dioxide 26.5 mMol/L (20.0-31.0); Chloride 101 mMol/L (98-107); Glucose 108 mg/dL (74-106); Magnesium 2.1 mg/dL (1.6-2.6); Osmolality,Calculated 276 (275-295); Sodium 139 mMol/L (136-145); eGFR > 60 See Note
[2024-11-16] MEDS: MULTIVITAMINS TABLET 1 TAB PO (08:13)
[2024-11-16] MEDS: ACETAMINOPHEN 325 MG TABLET 650 MG PO (08:13)
[2024-11-16] MEDS: ENOXAPARIN SOD INJ 40 MG/0.4 ML SYRINGE SC (08:15)
[2024-11-16] MEDS: PANTOPRAZOLE 40 MG TABLET PO (08:19)
[2024-11-16] MEDS: POTASSIUM CHLORIDE 20 mEq TABCR 40 MEQ PO (08:24)
[2024-11-16] MEDS: POTASSIUM CHL 10 mEq IVPB 10 MEQ/100 ML BAG 100 MEQ IV ×2 (08:25→09:55)
[2024-11-16 08:36] LABS: Alanine Aminotransferase 48 U/L (10-49); Albumin, Serum 3.9 gm/dL (3.5-5.0); Alkaline Phosphatase 293 U/L (46-116); Bilirubin,Direct 0.8 mg/dL (0.0-0.3); Bilirubin,Total 1.9 mg/dL (0.3-1.2); Total Protein 6.5 gm/dL (5.7-8.2)
[2024-11-16] MEDS: chlordiazePOXIDE HCl 25 MG CAPSULE PO ×2 (10:53→22:27)
--- NOTE | 2024-11-16 13:13 | PC.SS ---
Anthony Thomson is 49 year old male admitted to [facility] for Alcohol Withdrawal. SS conducted bedside contact with the patient to complete initial assessment and to discuss discharge planning.? SW used all precautionary measures to complete initial. Role and reason for the contact was explained to Anthony. Pt is alert and oriented times 4. Patient confirmed demographic information lives with sister and her children. Patient identifies Cathie Yoon, daughter, as her surrogate decision maker. Pt states prior to hospitalization he is able to complete ADL?s independently. Pt does not have DME nor O2. Pt states that he has had trouble when sober walking and may need assistive devices. Pt stated that he has been to rehab a few times with most recent at [facility] and graduating in June. Pt spoke to [facility] Director, and recommended that he contact [facility] and try to get into [facility] [place]. SS provided community resources. Pt confirmed no history of mental health. SS discussed considering MH along with residential treatment. Pt recently lost both parents, and is currently living in their home. Pt stated he has been unable to grieve sufficiently as both parents when he was incarcerated. Pt confirmed drinking about a gallon of vodka sometimes on a daily basis; pt last drink was 2 days ago. Options of HH discussed and pt receptive if needed and does not have a preference on provider. Pt PCP is Jacinto Diaz. Pt pharmacy is [facility]. [facility] Directive discussed and pt provided resources. Discharge options discussed and will return home with the plan to contact [facility]. Family will provide transportation upon DC. No further intervention required at this time, secondary social studies teacher would be available to address any further concerns. DC Plan: Home Contact: Cathie Yoon, daughter, Address: Confirmed on face sheet PCP: Jacinto Diaz
--- NOTE | 2024-11-16 13:57 | ESPR_ITS ---
<Statement entered by Oneil Dickey MD - 11/17/24 11:46> No overnight events, patient didn't receive any ativan overnight. CIWA scoare < 10, started on losartan for HTN. Potassium was repleted, will monitor and modify BP med as needed, antcipating to d/c within 24-48 hours. I discussed with and supervised the human resources intern physician involved in the care of this patient. Patient assessment and plan was discussed with entire medicine team, including my attending. I agree with the assessment and plan as documented by human resources intern doctor. Patient care was discussed with my attending physician Dr. Dina Dickey, PGY-2 Documentation for date of: 11/16/24 Subjective Subjective Interval history: Patient is seen and examined at bedside No acute overnight events and patient did not receive any lorazepam Patient reported that he is feeling well except for mild itching and nausea CIWA score is 5 Vitals are stable except for mildly elevated blood pressures Physical examination remains unremarkable except for mild flushing and congestion of eyes Labs showed platelet count 120, potassium 3, total bilirubin 1.9, ALT 48, ALP 293 Supplemented with 40 mill equivalents of oral potassium and 20 mEq of IV potassium. Started on losartan 50 Mg in view of elevated blood pressures Will monitor blood pressures and titrate dose as needed Exam Vital Signs Temp Pulse Resp BP Pulse Ox O2 Del Method 96.9 F 75 13 160/97 H 98 Room Air 11/16/24 11:52 11/16/24 11:52 11/16/24 11:52 11/16/24 11:52 11/16/24 11:52 11/16/24 11:52 Narrative Exam General: Awake. Flushing of skin and congestion of eyes noted HEENT: Normocephalic, atraumatic, mucous membranes moist. Heart: Regular rate and rhythm, no murmurs. Lungs: Clear to auscultation with no wheezing or crackles. Abdomen: Soft, nondistended, nontender, positive bowel sounds. ?No guarding or rebound tenderness. Neurologic: Alert and oriented x3, no gross neurological deficit, and patient able to move all 4 extremities. Extremities: No edema. Skin: No rash or ecchymoses. Objective Labs 11/17/24 05:13 11/17/24 05:13 Labs: Laboratory Results - last 24 hr 11/15/24 11/16/2411/16/25 11:25 05:15 05:19 WBC 7.5 D RBC 4.06 L Hgb 11.7 L Hct 35.6 L MCV 88 MCH 28.8 MCHC 32.9 RDW Std Deviation 51.5 H Plt Count 120 L D Neut % (Auto) 79 Lymph % (Auto) 11 [place] % (Auto) 6 Eos % (Auto) 3 Baso % (Auto) 0 Neut # (Auto) 5.9 Lymph # (Auto) 0.8 L [place] # (Auto) 0.5 Eos # (Auto) 0.2 Baso # (Auto) 0.0 Immature Gran # (Auto) 0.04 H Absolute Nucleated RBC 0.00 Immature Gran % 1 H Nucleated RBC % 0 Sodium 139 Potassium 3.0 L D Chloride 101 Carbon Dioxide 26.5 Anion Gap 12 BUN 8 L Creatinine 1.0 Estim Creat Clear Calc 120.0 eGFR > 60 BUN/Creatinine Ratio 8 L Glucose 108 H Calculated Osmolality 276 Calcium 9.0 Magnesium 1.6 2.1 Total Bilirubin 1.9 H Direct Bilirubin 0.8 H ALT 48 Alkaline Phosphatase 293 H D Total Protein 6.5 Albumin 3.9 D Urine Opiates Screen Negative Urine Fentanyl Screen Negative Ur Barbiturates Screen Negative U Amphetamin/Meth Scrn Positive A U Benzodiazepines Scrn Negative U Cocaine Metab Screen Negative U Marijuana (THC) Screen Negative Quality Measures Quality Measures VTE prophylaxis Assessment & Plan Assessment Current Active Medications: Generic Name Dose Route Start Last Admin Trade Name Freq PRN Reason Stop Dose Admin Acetaminophen 650 mg 11/15/24 18:02 11/16/24 08:13 Acetaminophen 325 Mg Tablet PO 12/15/24 18:01 650 mg Q6H PRN Administration Fever >101.5 Chlordiazepoxide HCl 25 mg 11/16/24 10:15 11/16/24 10:53 Chlordiazepoxide Hcl 25 Mg Capsule PO 11/20/24 10:14 25 mg Q8HR ROYER Administration Enoxaparin Sodium 40 mg 11/16/24 09:00 11/16/24 08:15 Enoxaparin Sod Inj 40 Mg/0.4 Ml Syringe SC 11/30/24 08:59 40 mg QDAY ROYER Administration Lorazepam 2 mg 11/15/24 18:05 Lorazepam 2 Mg/Ml Vial IVP X1 PRN Breakthrough Agitation Lorazepam 0.5 mg 11/15/24 18:05 Lorazepam 2 Mg/Ml Vial IV 11/20/24 18:04 Q2HR PRN CIWA SCORE 8-13 Lorazepam 1 mg 11/15/24 18:05 Lorazepam 2 Mg/Ml Vial IV 11/20/24 18:04 Q2HR PRN CIWA SCORE 14-19 Lorazepam 2 mg 11/15/24 18:05 Lorazepam 2 Mg/Ml Vial IV 11/20/24 18:04 Q2HR PRN CIWA SCORE 20-25 Multivitamins 1 tab 11/16/24 09:00 11/16/24 08:13 Multivitamins Tablet PO 12/16/24 08:59 1 tab QDAY ROYER Administration Ondansetron HCl 4 mg 11/15/24 18:02 11/16/24 02:35 Ondansetron Inj 2 Mg/Ml Inj 2 Ml IVP 12/15/24 18:01 4 mg Q6H PRN Administration NAUSEA OR VOMITING Protocol Pantoprazole Sodium 40 mg 11/16/24 09:00 11/16/24 08:19 Pantoprazole 40 Mg Tablet PO 12/16/24 08:59 40 mg QDAY ROYER Administration Plan A 49-year-old male with significant past medical history of hypertension, not on any medication, cholelithiasis presented the hospital with chief complaints of generalized weakness, abdominal pain since the morning on day of admission. # Alcohol use disorder # Alcohol withdrawal - Patient presented to the hospital with chief complaints of abdominal pain, palpitations, feeling unwell since this morning - Patient endorsed that his last drink was yesterday, about a gallon - At the time of admission are significant for blood pressure 182/115 mm Hg - Labs are significant for leukocytosis, hypokalemia, hyperbilirubinemia, transaminitis, ethyl alcohol 180.5 - CIWA is 13 at the time of admission - Received fluids and thiamine in the ED Plan - Started on CIWA protocol - Seizure precautions - Librium 25 Mg p.o. 3 times daily - Multivitamin # Elevated blood pressures # History of hypertension - The elevated blood pressures could be due to alcohol withdrawal - Patient endorsed that he had history of hypertension and is using the carvedilol, hydrochlorothiazide but stopped using it since 1 month Plan - Patient is already placed on CIWA protocol - Started on losartan 50mg orally, will titrate medications according to her blood pressures - Will continue to monitor blood pressures # Hypokalemia # Secondary to poor oral intake and alcohol use - Potassium at the time of admission is 2.4, magnesium is 1.6 - Repleted with 40 mill equivalents of oral potassium and 40 mill equivalents of IV potassium, 4 g of IV magnesium - Potassium as of today is 3 Plan - Repleted with 40 mill equivalents of oral potassium and 20 mEq of IV potassium - Will continue to monitor electrolytes and replete as needed # Alcoholic hepatitis, resolving - Patient endorsed that he is having abdominal pain and vomitings - Total bilirubin is 1.6, AST 128, ALT 61, ALP 347 - Gallbladder ultrasound showed cholelithiasis Plan - Will continue to monitor LFTs - Recommended alcohol cessation # Chronic Cholelithiasis - Patient endorsed that he had history of gallstones - Gallbladder ultrasound showed cholelithiasis # Methamphetamine abuse - Tested positive for meth - Referral to geriatric social worker done Hospital Maintenance: Dispo: Telemetry DVT ppx: Enoxaparin GI ppx: Protonix Diet: Regular IV lines: Peripheral Code status: Full Patient plan of care was discussed with the attending physician, Dr. Arroyo and senior resident Dr. Keli Hill, PGY1 Attending Provider Attestation/Addendum Wanda, Elisabet Arroyo, DO, attest that I was physically present for the shipley portions of the service and evaluated the patient with the resident and I reviewed and discussed the case with the resident and agree with the resident's findings and plans of care as documented above patient seen and evaluated this a.m. He states that he is feeling improved today, but continues to have headaches and some anxiety. Minimal tremors noted on exam. CIWA score of 10 today. Will taper Librium. Anticipate discharge within the next 24 to 48 hours
[2024-11-16] MEDS: LOSARTAN POTASSIUM 25 MG TABLET 50 MG PO (14:22)
--- NOTE | 2024-11-16 16:14 | PC.SS ---
SS spoke with Donna, Rainer, updated PCP to Sully Diaz; updated daughter's name: Milan Yoon; removed Angeles Chery, sister, as next of kin; updated employer to unemployed
[2024-11-16] MEDS: LORazepam 2 MG/ML VIAL 0.5 MG IV (19:31)
[2024-11-17] VITALS (8 sets, daily range): BP systolic 144–152; BP diastolic 82–100; PULSE 59–84; RESP 12–18; TEMP 35.9–37.7; O2SAT 95–97
[2024-11-17] MEDS: chlordiazePOXIDE HCl 25 MG CAPSULE PO (05:09)
[2024-11-17 06:16] LABS: Basophils % (Auto) 0 % (0-2.5); Eosinophils # (Auto) 0.2 Thou/mm3 (0.0-0.5); Eosinophils % (Auto) 3 % (0-10); Hemoglobin 11.2 g/dL (13.5-16.0); Immature Granulocytes % (Auto) 1 % (0-0); Immature Granulocytes Auto 0.03 Thou/mm3 (0.00-0.00); Lymphocytes # (Auto) 0.8 Thou/mm3 (1.0-4.8); Lymphocytes % (Auto) 13 % (10-50); Mean Corpuscular Hemoglobin 28.4 pg (25.0-35.0); Mean Corpuscular Volume 89 fL (80-100); Monocytes # (Auto) 0.4 Thou/mm3 (0.0-0.8); Monocytes % (Auto) 6 % (0-12); Neutrophils # (Auto) 5.1 Thou/mm3 (1.8-7.7); Neutrophils % (Auto) 77 % (37-80); Nucleated Red Blood Cell % 0 /100 WBC (0); Platelet Count 130 Thou/mm3 (140-440); RDW Standard Deviation 51.6 fL (35.1-43.9); Red Blood Count 3.94 Miln/mm3 (4.50-5.90); White Blood Count 6.5 Thou/mm3 (3.8-10.6)
--- NOTE | 2024-11-17 07:22 | PD.RESPRO ---
Documentation for date of: 11/17/24 Exam Vital Signs Temp Pulse Resp BP Pulse Ox O2 Del Method 99.9 F 59 L 12 148/99 H 95 Room Air 11/17/24 04:00 11/17/24 04:00 11/17/24 04:00 11/17/24 04:00 11/17/24 04:00 11/17/24 04:00 Objective Labs 11/17/24 05:13 11/16/24 05:19 Labs: Laboratory Results - last 24 hr 11/16/24 11/17/24 05:19 05:13 WBC 6.5 RBC 3.94 L Hgb 11.2 L Hct 35.0 L MCV 89 MCH 28.4 MCHC 32.0 RDW Std Deviation 51.6 H Plt Count 130 L Neut % (Auto) 77 Lymph % (Auto) 13 [place] % (Auto) 6 Eos % (Auto) 3 Baso % (Auto) 0 Neut # (Auto) 5.1 Lymph # (Auto) 0.8 L [place] # (Auto) 0.4 Eos # (Auto) 0.2 Baso # (Auto) 0.0 Immature Gran # (Auto) 0.03 H Absolute Nucleated RBC 0.00 Immature Gran % 1 H Nucleated RBC % 0 Total Bilirubin 1.9 H Direct Bilirubin 0.8 H ALT 48 Alkaline Phosphatase 293 H D Total Protein 6.5 Albumin 3.9 D Quality Measures Quality Measures VTE prophylaxis Assessment & Plan Assessment Current Active Medications: Generic Name Dose Route Start Last Admin Trade Name Freq PRN Reason Stop Dose Admin Acetaminophen 650 mg 11/15/24 18:02 11/16/24 08:13 Acetaminophen 325 Mg Tablet PO 12/15/24 18:01 650 mg Q6H PRN Administration Fever >101.5 Chlordiazepoxide HCl 25 mg 11/16/24 10:15 11/17/24 05:09 Chlordiazepoxide Hcl 25 Mg Capsule PO 11/20/24 10:14 25 mg Q8HR ROYER Administration Enoxaparin Sodium 40 mg 11/16/24 09:00 11/16/24 08:15 Enoxaparin Sod Inj 40 Mg/0.4 Ml Syringe SC 11/30/24 08:59 40 mg QDAY ROYER Administration Lorazepam 2 mg 11/15/24 18:05 Lorazepam 2 Mg/Ml Vial IVP X1 PRN Breakthrough Agitation Lorazepam 0.5 mg 11/15/24 18:05 11/16/24 19:31 Lorazepam 2 Mg/Ml Vial IV 11/20/24 18:04 0.5 mg Q2HR PRN Administration CIWA SCORE 8-13 Lorazepam 1 mg 11/15/24 18:05 Lorazepam 2 Mg/Ml Vial IV 11/20/24 18:04 Q2HR PRN CIWA SCORE 14-19 Lorazepam 2 mg 11/15/24 18:05 Lorazepam 2 Mg/Ml Vial IV 11/20/24 18:04 Q2HR PRN CIWA SCORE 20-25 Losartan Potassium 50 mg 11/16/24 14:00 11/16/24 14:22 Losartan Potassium 25 Mg Tablet PO 12/16/24 13:59 50 mg QDAY ROYER Administration Multivitamins 1 tab 11/16/24 09:00 11/16/24 08:13 Multivitamins Tablet PO 12/16/24 08:59 1 tab QDAY ROYER Administration Ondansetron HCl 4 mg 11/15/24 18:02 11/16/24 19:23 Ondansetron Inj 2 Mg/Ml Inj 2 Ml IVP 12/15/24 18:01 4 mg Q6H PRN Administration NAUSEA OR VOMITING Protocol Pantoprazole Sodium 40 mg 11/16/24 09:00 11/16/24 08:19 Pantoprazole 40 Mg Tablet PO 12/16/24 08:59 40 mg QDAY ROYER Administration Plan A 49-year-old male with significant past medical history of hypertension, not on any medication, cholelithiasis presented the hospital with chief complaints of generalized weakness, abdominal pain since the morning on day of admission. T99.9, 148/99, 59, on room air CBC stable, CHEM panel pending # Alcohol use disorder # Alcohol withdrawal - Patient presented to the hospital with chief complaints of abdominal pain, palpitations, feeling unwell since this morning - Patient endorsed that his last drink was yesterday, about a gallon - At the time of admission are significant for blood pressure 182/115 mm Hg - Labs are significant for leukocytosis, hypokalemia, hyperbilirubinemia, transaminitis, ethyl alcohol 180.5 - CIWA is 13 at the time of admission - Received fluids and thiamine in the ED Plan - Started on CIWA protocol - Seizure precautions - Librium 25 Mg p.o. 3 times daily - Multivitamin # Elevated blood pressures # History of hypertension - The elevated blood pressures could be due to alcohol withdrawal - Patient endorsed that he had history of hypertension and is using the carvedilol, hydrochlorothiazide but stopped using it since 1 month Plan - Patient is already placed on CIWA protocol - Started on losartan 50mg orally, will titrate medications according to her blood pressures - Will continue to monitor blood pressures # Hypokalemia # Secondary to poor oral intake and alcohol use - Potassium at the time of admission is 2.4, magnesium is 1.6 - Repleted with 40 mill equivalents of oral potassium and 40 mill equivalents of IV potassium, 4 g of IV magnesium - Potassium as of today is 3 Plan - Repleted with 40 mill equivalents of oral potassium and 20 mEq of IV potassium - Will continue to monitor electrolytes and replete as needed # Alcoholic hepatitis, resolving - Patient endorsed that he is having abdominal pain and vomitings - Total bilirubin is 1.6, AST 128, ALT 61, ALP 347 - Gallbladder ultrasound showed cholelithiasis Plan - Will continue to monitor LFTs - Recommended alcohol cessation # Chronic Cholelithiasis - Patient endorsed that he had history of gallstones - Gallbladder ultrasound showed cholelithiasis # Methamphetamine abuse - Tested positive for meth - Referral to social services technician done Hospital Maintenance: Dispo: Telemetry DVT ppx: Enoxaparin GI ppx: Protonix Diet: Regular IV lines: Peripheral Code status: Full Patient plan of care was discussed with the attending physician, Dr. Arroyo and senior resident Dr. Keli Hill, PGY1
[2024-11-17 07:26] LABS: Anion Gap 13 (7-16); BUN/Creatinine Ratio 7 Ratio (12-20); Blood Urea Nitrogen 8 mg/dL (9-23); Calcium 8.9 mg/dL (8.3-10.6); Carbon Dioxide 25.2 mMol/L (20.0-31.0); Chloride 107 mMol/L (98-107); Creatinine (Component) 1.1 mg/dL (0.6-1.3); Estimated Creatinine Clearance 116.6 mL/min (>60); Glucose 105 mg/dL (74-106); Osmolality,Calculated 287 (275-295); Potassium 3.4 mMol/L (3.4-5.1); Sodium 145 mMol/L (136-145); eGFR > 60 See Note
[2024-11-17] MEDS: LOSARTAN POTASSIUM 25 MG TABLET 50 MG PO (08:32)
[2024-11-17] MEDS: PANTOPRAZOLE 40 MG TABLET PO (08:32)
[2024-11-17] MEDS: ACETAMINOPHEN 325 MG TABLET 650 MG PO (08:33)
[2024-11-17] MEDS: MULTIVITAMINS TABLET 1 TAB PO (08:33)
[2024-11-17] MEDS: ENOXAPARIN SOD INJ 40 MG/0.4 ML SYRINGE SC (08:34)
[2024-11-17] MEDS: Lisinopril 20 MG TABLET 40 MG PO (10:48)
[2024-11-17] MEDS: amLODIPine BESYLATE 5 MG TABLET PO (10:49)
[2024-11-17] MEDS: hydroCHLOROthiazide 12.5 MG CAPSULE 25 MG PO (10:49)
[2024-11-17] MEDS: POTASSIUM CHLORIDE 20 mEq TABCR 40 MEQ PO (10:50)
--- NOTE | 2024-11-17 12:23 | ESDS_ITS ---
<Statement entered by Elisabet Arroyo DO - 11/17/24 13:07> I, Elisabet Arroyo DO, attest that I was physically present for the shipley portions of the service and evaluated the patient with the resident and I reviewed and discussed the case with the resident and agree with the resident's findings and plans of care as documented above Planned Discharge Date 11/17/24 DS: Providers Provider Date of admission: 11/15/24 18:01 Primary care physician: Jacinto Diaz MD Admitting Provider: Elisabet Arroyo DO Attending Provider on Admission: Elisabet Arroyo DO Consults: 11/16/24 14:17 Referral Physical Therapy Stat Comment: Physician Instructions: Attending Provider on DC: Elisabet Arroyo DO Discharging Provider: Elisabet Arroyo DO DS: Diagnosis Problem List Completed Was Problem List Reviewed/Reconciled?: Yes Hospital Course Hospital Course Hospital course: This is a 49-year-old male with PMHx of HTN, cholelithiasis, presented with general weakness, abdominal pain and feeling unwell, admitted for alcohol withdrawal. Initial CIWA was 13, continued on CIWA protocol. THIAMINE and multivitamins were given. Symptoms resolved at the time of discharge. GI symptoms resolved. No reported seizures or agitation in the last 48 hours. He was discharged to home, given LIBRIUM for agitation as needed. Vitals and labs were stable at the time of discharge. Recommended alcohol cessation. IMAGE FINDINGS: * Gallbladder ultrasound showed cholelithiasis, negative for cholecystitis. Please follow-up with PCP or return to ED for recurrent symptoms, may require MRCP if symptomatic again. PATIENT INSTRUCTIONS: Follow-up with PCP within 1-2 weeks of discharge. Return to Emergency Room if symptoms persist, worsen, or new symptoms develop. You been prescribed LIBRIUM for withdrawal/agitation symptoms, please do not exceed 1 tablet in 24 hours, and do not consume with alcohol. Continue taking THIAMINA and MULTIVITAMINS as prescribed below. Continue taking medications as prescribed below. ADMISSION DIAGNOSES: Alcohol use disorder Alcohol withdrawal Elevated blood pressure History of hypertension. Hypokalemia/hypomagnesemia Alcoholic hepatitis Chronic cholelithiasis Case was discussed with attending physician and senior resident. Shanna Blair DO PGYI Time Spent with Patient Time attestation: Total time spent providing and/or coordinating discharge services: Greater than 35 minutes. Time spent: Greater than 30 minutes Exam Vital Signs Temp Pulse Resp BP Pulse Ox O2 Del Method 97.1 F 76 17 152/96 H 97 Room Air 11/17/24 11:55 11/17/24 11:55 11/17/24 11:55 11/17/24 11:55 11/17/24 11:55 11/17/24 11:55 Narrative Exam General: Awake. Flushing of skin and congestion of eyes noted, CIWA 2 HEENT: Normocephalic, atraumatic, mucous membranes moist. Heart: Regular rate and rhythm, no murmurs. Lungs: Clear to auscultation with no wheezing or crackles. Abdomen: Soft, nondistended, nontender, positive bowel sounds. ?No guarding or rebound tenderness. Neurologic: Alert and oriented x3, no gross neurological deficit, and patient able to move all 4 extremities. Extremities: No edema. Skin: No rash or ecchymoses. Discharge Plan Plan Patient Disposition: HOME (Self Care) Patient condition on transfer: Stable Care Plan Goals: * Follow-up with PCP within 1-2 weeks of discharge. * Recommended alcohol cessation, please discuss with PCP. * You have been prescribed 2 pills of LIBRIUM, please take as needed withdrawal symptoms and agitation, do not consume with alcohol at the same time. Do not take more than 1 pill in 24 hours. * Continue taking THIAMINE and MULTIVITAMENS as prescribed below. * Return to Emergency Room if symptoms persist, worsen, or new symptoms develop. * Continue taking medications as prescribed below. Prescriptions/Referrals Prescriptions/Med Rec: New thiamine HCl (vitamin B1) 100 mg capsule 100 mg PO QDAY Qty: 30 0RF multivitamin Tablet 1 tab PO QDAY Qty: 30 0RF chlordiazepoxide HCl 25 mg capsule 25 mg PO PRN PRN (Reason: agitation) Qty: 2 0RF Rx Instructions: Take 1 tablet daily for agitation. Do not exceed 1 tablet in 24 hours. Do not use with alcohol. Continued hydrochlorothiazide 25 mg tablet 25 mg PO QAM Qty: 30 1RF amlodipine 5 mg tablet 5 mg PO DAILY lisinopril 40 mg tablet 40 mg PO QDAY Patient Comments: TAKE 1 TABLET BY MOUTH EVERY DAY Referrals: Jacinto Diaz MD [Primary Care Provider] - Patient/Caregiver Discharge Instructions Education Materials: Abdominal Pain, Signs of Alcohol Addiction ..., The Impact of Alcoholism, Alcoholism: Getting Help, Alcohol Withdrawal: What to Expect, Addiction Recovery Counseling, Self-Care for Headaches, Dehydration Print Language: Georgian Stand Alone Forms: Mayuri Award Info., Patient Portal Info Letter, Work/Release Restrictions Discharge Order Discharge Orders: Discharge (Routine); Ordered 11/17/24 Ordered By: Shanna Blair Quality Discharge Quality Measures VTE prophylaxis
== END 2024-11-17 12:52 | disposition home or self-care (01) ==
LOC: SERX 18:46 → SERHOLD 19:00 → S2NX 11-16 16:13 → SERHOLD 11-18 07:57 → S2NX 11-18 07:59
PROVIDERS: Nurse Practitioner Family; Student in an Organized Health Care Education/Training Program; Admitting Provider Internal Medicine; Emergency Provider Emergency Medicine; PCP Family Medicine; Visit Provider Internal Medicine
DX: F10.239 Alcohol dependence with withdrawal, unspecified (principal); D72.829 Elevated white blood cell count, unspecified; E83.42 Hypomagnesemia; E87.6 Hypokalemia; F15.10 Other stimulant abuse, uncomplicated; F41.9 Anxiety disorder, unspecified; I10 Essential (primary) hypertension; K70.10 Alcoholic hepatitis without ascites; K80.20 Calculus of gallbladder without cholecystitis without obstruction; Y90.6 Blood alcohol level of 120-199 mg/100 ml; Z01.810 Encounter for preprocedural cardiovascular examination
CPT/HCPCS: 36415; 76705; 80048; 80053; 80076; 80307; 80320; 83690; 83735; 85025; 85610; 85730; 93005; 96361; 96365; 96366; 96372; 96375; 96376; 99285; G0378; J1650; J2060; J2405; J3411; J3475; J3480; J3490; J7030; J7050; A9270; G0480

== ENCOUNTER 2024-12-07 21:35 | Emergency (ER) | payer MEDICAID, SELFPAY ==
[2024-12-07 21:39] VITALS: BP 156/97; PULSE 96; RESP 18; TEMP 37; O2SAT 97
[2024-12-07 21:40] VITALS: BMI 31.4
--- NOTE | 2024-12-07 21:42 | PD.EDALCOH ---
ED Alcohol RME/HPI General Stated Complaint: WEAKNESS Time Seen by Provider: 12/07/24 21:39 Arrival date/time: 12/07/24 21:35 RME / HPI RME / HPI narrative: DR REYES MAIN ED EVALUATION: 49 y/o male with Hx of Alcohol use, Hypertension, Gastrointestinal Disorders, and Gall Bladder Disease presents to ED BIBA from home c/o feeling bad and not being able to stop drinking. Patient is non-compliant with his medication at home. No pain reported overall. Last drink: Just Prior to Arrival Related Data Home Medications ?Medication ?Instructions ?Recorded ?Confirmed amlodipine 5 mg tablet 5 mg PO DAILY 09/20/24 11/15/24 lisinopril 40 mg tablet 40 mg PO QDAY 11/15/24 11/15/24 Previous Rx's ?Medication ?Instructions ?Recorded hydrochlorothiazide 25 mg tablet 25 mg PO QAM #30 tabs 09/15/21 chlordiazepoxide HCl 25 mg capsule 25 mg PO PRN PRN agitation #2 caps 11/17/24 multivitamin 1 tab PO QDAY #30 tabs 11/17/24 thiamine HCl (vitamin B1) 100 mg 100 mg PO QDAY #30 caps 11/17/24 capsule Allergies Allergy/AdvReac Type Severity Reaction Status Date / Time No Known Allergies Allergy Verified 11/15/24 11:05 Review of Systems Review of Systems Systems Reviewed: All systems reviewed, normal except as documented Past Medical History Past Medical History CARDIAC: Positive Hypertension GASTROINTESTINAL: Positive Gastrointestinal Disorders and Gall Bladder Disease MUSCULOSKELETAL: Positive Arthritis OTHER HISTORY: Positive Falls Family History FAMILY HISTORY: Positive Family Cardiac Disorders and Family Cancer Social History ALCOHOL: Current ALCOHOL FREQUENCY: 3 or More Drinks per Day ALCOHOL LAST INTAKE: Just Prior to Arrival ED Exam Narrative Physical exam: GENERAL APPEARANCE: alert and oriented x 4, well-developed, well-nourished, no acute distress, appears intoxicated VITALS: All vitals were reviewed and the pulse ox is 97% on room air, which is normal according to my interpretation. HEENT: Normocephalic, atraumatic; pupils equal, round, reactive to light; EOMI; mucous membranes pink, moist; oropharynx clear NECK: Supple LUNGS: CTABL; no wheezes, no rales, no rhonchi HEART: Regular rate, regular rhythm; normal S1, S2; no murmurs ABDOMEN: non distended; normal BS; soft, no tenderness, no guarding, no rebound; no masses, no organomegaly, no hernia BACK: no CVA tenderness EXTREMITIES: atraumatic; no edema NEUROLOGIC: awake; alert and oriented x4; cranial nerves II-XII grossly intact; no focal sensory or motor deficits PSYCHIATRIC: appropriate mood and affect SKIN: warm, dry, normal color; no rashes Course Quality Measures none Orders Category Date Time Status Alcohol, Blood Medical Stat Lab 12/07/24 21:56 Completed CBC Stat Lab 12/07/24 21:56 Completed CMP [Comprehensive Metabolic Panel] Stat Lab 12/07/24 21:56 Completed Lipase Stat Lab 12/07/24 21:56 Completed UA, C/S IF [Urinalysis, C/S if Indicated] Stat Lab 12/07/24 21:41 Ordered KCL 10% Liq UDC 15 ML Med 12/08/24 03:53 Discontinued 40 meq PO X1 ONE Magnesium Oxide [Mag-Ox 400] Med 12/08/24 03:53 Discontinued 400 mg PO X1 ONE Vital Signs Vital signs: Vital Signs Temperature 98.6 F 12/07/24 21:39 Pulse Rate 96 12/07/24 21:39 Respiratory Rate 18 12/07/24 21:39 Blood Pressure 156/97 H 12/07/24 21:39 Pulse Oximetry (%) 97 12/07/24 21:39 Oxygen Delivery Method Room Air 12/07/24 21:39 Discharge Plan Plan Patient Disposition: HOME (Self Care) Prescriptions/Referrals Prescriptions/Med Rec: No Action hydrochlorothiazide 25 mg tablet 25 mg PO QAM Qty: 30 1RF amlodipine 5 mg tablet 5 mg PO DAILY lisinopril 40 mg tablet 40 mg PO QDAY Patient Comments: TAKE 1 TABLET BY MOUTH EVERY DAY thiamine HCl (vitamin B1) 100 mg capsule 100 mg PO QDAY Qty: 30 0RF multivitamin Tablet 1 tab PO QDAY Qty: 30 0RF chlordiazepoxide HCl 25 mg capsule 25 mg PO PRN PRN (Reason: agitation) Qty: 2 0RF Rx Instructions: Take 1 tablet daily for agitation. Do not exceed 1 tablet in 24 hours. Do not use with alcohol. Referrals: No Primary/Family,Physician [Primary Care Provider] - In 1 week Problem List Clinical Impression: Alcohol intoxication Patient/Caregiver Discharge Instructions Print Language: American Stand Alone Forms: Mayuri Award Info., Patient Portal Info Letter Alcohol MDM Narrative MDM Narrative: Scribe Attestation: I, Darcy Hernandes, am scribing for and in the presence of Dr. Reyes. Provider Notation: Although this document has been carefully reviewed, there may still be some phonetic and other typographical errors.? These errors are purely grammatical due to imperfections in the software program and should not be construed in any way to? compromise the substance of the patient's medical care during this visit. Patient data External records reviewed:: [facility] previous records (Reviewed prior ED records from 11/15/24. Patient was seen for Acute hypokalemia.) and EMS form Clinical information provided by:: EMS Social determinants that could affect healthcare access:: alcohol use Patient has the following chronic illnesses:: Alcohol use, Hypertension, Gastrointestinal Disorders, Gall Bladder Disease, Arthritis How is presenting disease/condition affected by chronic disease/condition?: exacerbated by Evaluation data The following diagnostics were reviewed and interpreted by me:: lab results Lab and/or radiology exams considered but not ordered:: None Interpretation Summary: Labs Ethyl Alcohol: 323.4. Medications / Prescriptions Medications or Prescriptions considered but not ordered:: None Medication administrations:: Medication Administration History Discontinued Medications Magnesium Oxide (Magnesium Oxide 400 Mg Tablet) 400 mg PO X1 ONE Stop: 12/08/24 03:54 Last Admin: 12/08/24 04:27 Dose: 400 mg Documented By: CVL Potassium Chloride (Potassium Chloride 10% 20 Meq/15 Ml Udc) 40 meq PO X1 ONE Stop: 12/08/24 03:54 Last Admin: 12/08/24 04:27 Dose: 40 meq Documented By: CVL See above Consultations Consultation(s) initiated? (list below): No Diagnosis Differential diagnosis alcohol: alcohol withdrawal delirium, hypomagnesemia, alcohol intoxication, alcohol ketoacidosis, alcohol withdrawal syndrome and alcohol withdrawal seizure Most likely diagnosis given after review of the tests above:: Alcohol intoxication Admission Indicated Admission indicated?: not indicated Explain why admission is indicated or not indicated:: Patient does not meet admission criteria. Admission Request Was there a request for admission?: No Disposition Plan Disposition Plan: Discharge Discharge Attestation Discharge Attestation: The patient and all family members were given an opportunity to ask questions and understood the discharge instructions. Discharge instructions specifically effects, indications for sooner follow up or return to the emergency department, and the expected course of current diagnosis. Patient condition: Stable
[2024-12-07 21:53] VITALS: PULSE 95
[2024-12-07 22:06] LABS: Basophils # (Auto) 0.1 Thou/mm3 (0.0-0.2); Basophils % (Auto) 1 % (0-2.5); Eosinophils # (Auto) 0.3 Thou/mm3 (0.0-0.5); Eosinophils % (Auto) 3 % (0-10); Hematocrit 37.3 % (41.0-53.0); Hemoglobin 12.2 g/dL (13.5-16.0); Immature Granulocytes % (Auto) 0 % (0-0); Immature Granulocytes Auto 0.04 Thou/mm3 (0.00-0.00); Lymphocytes # (Auto) 1.7 Thou/mm3 (1.0-4.8); Lymphocytes % (Auto) 18 % (10-50); Mean Corpuscular HGB Conc 32.7 g/dl (31.0-37.0); Mean Corpuscular Hemoglobin 29.3 pg (25.0-35.0); Mean Corpuscular Volume 89 fL (80-100); Monocytes # (Auto) 0.7 Thou/mm3 (0.0-0.8); Monocytes % (Auto) 7 % (0-12); Neutrophils # (Auto) 6.6 Thou/mm3 (1.8-7.7); Neutrophils % (Auto) 71 % (37-80); Nucleated Red Blood Cell % 0 /100 WBC (0); Platelet Count 201 Thou/mm3 (140-440); RDW Standard Deviation 50.8 fL (35.1-43.9); Red Blood Count 4.17 Miln/mm3 (4.50-5.90); White Blood Count 9.4 Thou/mm3 (3.8-10.6)
[2024-12-07 22:46] LABS: Alanine Aminotransferase 50 U/L (10-49); Albumin, Serum 4.3 gm/dL (3.5-5.0); Albumin/Globulin Ratio 1.6 (1.2-2.2); Alcohol, Blood Medical 323.4 mg/dL (0-10.0); Alkaline Phosphatase 298 U/L (46-116); Anion Gap 10 (7-16); Aspartate Amino Transferase 149 U/L (0-34); BUN/Creatinine Ratio 8 Ratio (12-20); Bilirubin,Total 0.7 mg/dL (0.3-1.2); Blood Urea Nitrogen 7 mg/dL (9-23); Carbon Dioxide 25.3 mMol/L (20.0-31.0); Chloride 109 mMol/L (98-107); Creatinine (Component) 0.9 mg/dL (0.6-1.3); Estimated Creatinine Clearance 128.8 mL/min (>60); Globulin 2.7 gm/dL (2.3-3.5); Glucose 122 mg/dL (74-106); Lipase 37 U/L (12-53); Osmolality,Calculated 285 (275-295); Sodium 144 mMol/L (136-145); eGFR > 60 See Note
[2024-12-08] MEDS: POTASSIUM CHLORIDE 10% 20 MEQ/15 ML UDC 40 MEQ PO (04:27)
[2024-12-08] MEDS: MAGNESIUM OXIDE 400 MG TABLET PO (04:27)
--- NOTE | 2024-12-08 06:55 | PC.NURSE ---
SEEN PT LEAVING ER.
== END 2024-12-08 06:56 | disposition home or self-care (01) ==
PROVIDERS: Emergency Provider Emergency Medicine
DX: F10.129 Alcohol abuse with intoxication, unspecified (principal); Y90.8 Blood alcohol level of 240 mg/100 ml or more; I10 Essential (primary) hypertension
CPT/HCPCS: 36415; 80053; 80320; 81001; 83690; 85025; 99283; A9270; G0480

== ENCOUNTER 2024-12-17 08:17 | Emergency (ER) | payer MEDICAID, SELFPAY ==
[2024-12-17] VITALS (18 sets, daily range): BP systolic 182–230; BP diastolic 94–130; PULSE 79–99; RESP 17–29; TEMP 36.6–36.9; O2SAT 95–98; BMI 30.9
--- NOTE | 2024-12-17 08:26 | XR_ITS ---
Examination: CT brain head without contrast. 2-D sagittal coronal reconstructions Date and time of exam:December 17, 2024 0834 hours COMPARISON: September 19, 2024 INDICATIONS: Severe headaches and dizziness onset today CTDI: vol (mGy):58 DLP: (mGycm):1195 Technique: Multiple CT axial sections of the brain have been obtained, 5 mm slice thickness. Contrast has not been administered. 2-D sagittal, coronal reconstructions have been obtained Low dose protocols were performed. One or more of the following dose reduction techniques were used; automated exposure control, adjustment of the mA and/or KV according to patient size, use of iterative reconstruction technique. Findings: No significant ventricular enlargement. Intra-axial or extra-axial hemorrhage density is not seen. No mass effect or midline shift Basal cisterns are not remarkable. Fourth ventricle is midline. Cranial vault intact. Significant right maxillary sinus disease, mild ethmoid chronic sinus disease Impression: Negative for acute hemorrhage, mass effect or midline shift Advise clinical correlation follow-up accordingly
--- NOTE | 2024-12-17 08:26 | EKG_ITS ---
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
--- NOTE | 2024-12-17 08:53 | EDNOTE_ITS ---
ED Dizzyness RME/HPI General Chief Complaint: Dizziness Stated Complaint: FEELS LIKE HE'S GOING TO FALL OVER X 1 WK; DIZZY Time Seen by Provider: 12/17/24 08:41 Arrival date/time: 12/17/24 08:17 Limitations: no limitations RME / HPI RME / HPI Narrative: 49 year old male with history of hypertension and alcoholism, presents to the ED for evaluation of worsening dizziness beginning 1 week ago. Described as feeling off balance that is aggravated with head movements and walking. Accompanied by nausea and vomiting. Additionally complains of epigastric abdominal pain which he attributes to the vomiting. Reports he was evaluated here twice in the last month and admitted on one of those occasions. Additionally reports running out of his hypertensive medications 2 weeks ago. Denies headache, change in vision, loss of sensation/movement, chest pain, cough, diarrhea, constipation, or urinary symptoms. Patient states he drinks vodka daily and last drank a couple of fifths yesterday afternoon. Related Data Home Medications ?Medication ?Instructions ?Recorded ?Confirmed amlodipine 5 mg tablet 5 mg PO DAILY 09/20/2411/15 lisinopril 40 mg tablet 40 mg PO QDAY 11/15/2411/15 Previous Rx's ?Medication ?Instructions ?Recorded hydrochlorothiazide 25 mg tablet 25 mg PO QAM #30 tabs 09/15/21 chlordiazepoxide HCl 25 mg capsule 25 mg PO PRN PRN ag itation #2 caps 11/17/24 multivitamin 1 tab PO QDAY #30 tabs 11/17 thiamine HCl (vitamin B1) 100 mg 100 mg PO QDAY #30 ca ps 11/17/24 capsule amlodipine 5 mg tablet 5 mg PO QDAY hypertension #3 0 tabs 12/17/24 hydrochlorothiazide 25 mg tablet 25 mg PO QAM hyperten donte #30 tabs 12/17/24 lisinopril 20 mg tablet 20 mg PO QDAY hypertension # 30 tabs 12/17/24 metoclopramide HCl 10 mg tablet 10 mg PO Q6H PRN nause a and 12/17/24 (Reglan) vomiting #60 tabs Allergies Allergy/AdvReac Type Severity Reaction Status Date / Time No Known Allergies Allergy Verified 12/17/24 08:22 Review of Systems Review of Systems Systems Reviewed: All systems reviewed, normal except as documented Past Medical History Past Medical History CARDIAC: Positive Hypertension GASTROINTESTINAL: Positive Gastrointestinal Disorders and Gall Bladder Disease MUSCULOSKELETAL: Positive Arthritis OTHER HISTORY: Positive Falls Family History FAMILY HISTORY: Positive Family Cardiac Disorders and Family Cancer Social History SMOKING STATUS: Never smoker SECOND HAND EXPOSURE: Yes (sister including marijuana) SUBSTANCE USE: does not use ED Exam General Limitations: Present no limitations General appearance: Present alert and other (appears chronically ill, smells of faint etoh on breath ) Head Head exam: Present atraumatic, normocephalic and normal inspection Eye Eye exam: Present normal appearance, PERRL and EOMI ENT ENT exam: Present normal exam, normal oropharynx and mucous membranes moist Neck Neck exam: Present normal inspection, full ROM and trachea midline Chest Chest inspection: Present normal inspection and symmetric chest wall rise Respiratory Respiratory exam: Present normal lung sounds bilaterally Cardiovascular Cardiovascular exam: Present regular rate, normal rhythm and normal heart sounds Abdominal Exam Abdominal exam: Present soft, tenderness (epigastric ttp 1+) and normal bowel sounds Extremities Exam Extremities exam: Present normal inspection and full ROM Back Exam Back exam: Present normal inspection and full ROM Neurological Exam Neurological exam: Present alert, oriented X3, CN II-XII intact and other (gait was not tested, no nystagmus ) Psychiatric Psychiatric exam: Present normal affect and normal mood Skin Skin exam: Present warm, dry, intact and normal color Course Quality Measures none Orders Category Date Time Status Media Sales Consultant NOW Care 12/17/24 08:26 Active EKG (ED ONLY) *Do not use* NOW Care 12/17/24 08:[address] head/brain wo con Stat Exams 12/17/24 08:26 Completed EKG (ED Only) Stat Exams 12/17/24 08:26 Draft Alcohol, Blood Medical Stat Lab 12/17/24 09:14 Completed B-Type Natriuretic Peptide Stat Lab 12/17/24 09:14 Completed CBC Stat Lab 12/17/24 09:14 Completed Comprehensive Metabolic Panel Stat Lab 12/17/24 09:14 Completed Drug Screen,Urine Stat Lab 12/17/24 10:28 Completed Magnesium Stat Lab 12/17/24 09:14 Completed Partial Thromboplastin Time Stat Lab 12/17/24 09:14 Completed Prothrombin Time with INR Stat Lab 12/17/24 09:14 Completed Troponin I Stat Lab 12/17/24 09:14 Completed Urinalysis Stat Lab 12/17/24 10:28 Completed Famotidine Inj [Pepcid Inj] Med 12/17/24 08:54 Discontinued 20 mg IVP X1 ONE LORazepam [Ativan Inj] Med 12/17/24 08:59 Discontinued 0.5 mg IVP X1 ONE Meclizine HCl [Antivert] Med 12/17/24 08:43 Discontinued 25 mg PO X1 ONE Metoclopramide Inj [Reglan Inj] Med 12/17/24 14:20 Discontinued 10 mg IVP X1 ONE Multivitamin. Med 12/17/24 09:14 Discontinued 15 ml PO X1 ONE Ondansetron Inj [Zofran Inj] Med 12/17/24 08:43 Discontinued 4 mg IVP X1 ONE Sodium Chloride 0.9% 1000 ml [Ns] 1,000 ml Med 12/17/24 08:43 Discontinued IV 999 mls/hr Thiamine [Vitamin B-1] Med 12/17/24 09:14 Discontinued 100 mg PO X1 ONE cloNIDine HCL [Catapres] Med 12/17/24 09:08 Discontinued 0.1 mg PO X1 ONE hydrALAZINE INJ [Apresoline Inj] Med 12/17/24 09:08 Discontinued 5 mg IVP X1 ONE Vital Signs Vital signs: Vital Signs Temperature 98.2 F 12/17/24 08:26 Pulse Rate 88 12/17/24 08:26 Respiratory Rate 19 12/17/24 08:26 Blood Pressure 230/130 H 12/17/24 08:26 Pulse Oximetry (%) 98 12/17/24 08:26 Oxygen Delivery Method Room Air 12/17/24 08:26 Pulse ox is 98% on room air which is adequate. Dizziness MDM Narrative MDM Narrative:: Niyah Muñoz am scribing for and in the presence of Dr. Palacio. Patient data External records reviewed:: [facility] previous records (I reviewed ED visit on 12/07/2024 ) Clinical information provided by:: patient Social determinants that could affect healthcare access:: alcohol use Patient has the following chronic illnesses:: HTN and alcoholism How is presenting disease/condition affected by chronic disease/condition?: exacerbated by Evaluation data The following diagnostics were reviewed and interpreted by me:: lab results, radiology exam(s) and EKG tracing(s) (12/17/2024 @ 08:29 AM. NSR, rate 92, no STEMI. ) Lab and/or radiology exams considered but not ordered:: None Interpretation Summary: Ordering Physician: Shane SHRESTHA)Jewel NP Date of Service: 12/17/24 Procedure(s): CT head/brain wo con Accession Number(s): [id number] cc: Shane SHRESTHA)Jewel NP; Jacinto Diaz MD; Apolinar Ye MD~ Examination: CT brain head without contrast. 2-D sagittal coronal reconstructions Date and time of exam:December 17, 2024 0834 hours COMPARISON: September 19, 2024 INDICATIONS: Severe headaches and dizziness onset today CTDI: vol (mGy):58 DLP: (mGycm):1195 Technique: Multiple CT axial sections of the brain have been obtained, 5 mm slice thickness. Contrast has not been administered. 2-D sagittal, coronal reconstructions have been obtained Low dose protocols were performed. One or more of the following dose reduction techniques were used; automated exposure control, adjustment of the mA and/or KV according to patient size, use of iterative reconstruction technique. Findings: No significant ventricular enlargement. Intra-axial or extra-axial hemorrhage density is not seen. No mass effect or midline shift Basal cisterns are not remarkable. Fourth ventricle is midline. Cranial vault intact. Significant right maxillary sinus disease, mild ethmoid chronic sinus disease Impression: Negative for acute hemorrhage, mass effect or midline shift Advise clinical correlation follow-up accordingly Dictated By: Apolinar Ye MD Signed By: <Electronically signed by Apolinar Ye MD in OV> 12/17/24 0910 Medications / Prescriptions Medications or Prescriptions considered but not ordered:: None Medication administrations:: Medication Administration History Discontinued Medications Clonidine (Clonidine Hcl 0.1 Mg Tablet) 0.1 mg PO X1 ONE Stop: 12/17/24 09:09 Last Admin: 12/17/24 09:39 Dose: 0.1 mg Documented By: SATINDER Famotidine (Famotidine Inj 10 Mg/Ml Vial 2 Ml) 20 mg IVP X1 ONE Stop: 12/17/24 08:55 Last Admin: 12/17/24 09:37 Dose: 20 mg Documented By: SATINDER Hydralazine HCl (Hydralazine Inj 20 Mg/Ml Vial) 5 mg IVP X1 ONE Stop: 12/17/24 09:09 Last Admin: 12/17/24 09:37 Dose: 5 mg Documented By: CG Sodium Chloride (Ns) 1,000 mls @ 999 mls/hr IV .Q1H1M ONE Stop: 12/17/24 09:43 Last Infusion: 12/17/24 10:26 Dose: Infused Documented By: Admin: 12/17/24 09:38 Dose: 999 mls/hr Documented By: CG Lorazepam (Lorazepam 2 Mg/Ml Vial) 0.5 mg IVP X1 ONE Stop: 12/17/24 09:00 Last Admin: 12/17/24 09:45 Dose: 0.5 mg Documented By: CG Meclizine HCl (Meclizine Hcl 25 Mg Tablet) 25 mg PO X1 ONE Stop: 12/17/24 08:44 Last Admin: 12/17/24 09:38 Dose: 25 mg Documented By: SATINDER Metoclopramide HCl (Metoclopramide Inj 5 Mg/Ml Vial 2 Ml) 10 mg IVP X1 ONE; Protocol Stop: 12/17/24 14:21 Last Admin: 12/17/24 14:28 Dose: 10 mg Documented By: SATINDER Multivitamins/Minerals (Multivitamin 15 Ml Udc) 15 ml PO X1 ONE Stop: 12/17/24 09:15 Last Admin: 12/17/24 10:26 Dose: 15 ml Documented By: SATINDER Ondansetron HCl (Ondansetron Inj 2 Mg/Ml Inj 2 Ml) 4 mg IVP X1 ONE; Protocol Stop: 12/17/24 08:44 Last Admin: 12/17/24 09:37 Dose: 4 mg Documented By: SATINDER Thiamine HCl (Thiamine 100 Mg Tablet) 100 mg PO X1 ONE Stop: 12/17/24 09:15 Last Admin: 12/17/24 09:41 Dose: 100 mg Documented By: CG See above Consultations Consultation(s) initiated? (list below): No Diagnosis Dizziness Differential Diagnosis: adverse reaction to drug, benign paroxysmal positional vertigo, orthostatic hypotension, cerebrovascular accident and transient cerebral ischemia Most likely diagnosis given after review of the tests above:: Alcohol abuse Dizziness Methamphetamine use Hypertension Admission Indicated Admission indicated?: not indicated Admission Request Was there a request for admission?: No Disposition Plan Disposition Plan: Discharge Discharge Attestation Discharge Attestation: The patient and all family members were given an opportunity to ask questions and understood the discharge instructions. Discharge instructions specifically effects, indications for sooner follow up or return to the emergency department, and the expected course of current diagnosis. Patient condition: Stable Discharge Plan Plan Patient Disposition: HOME (Self Care) Prescriptions/Referrals Prescriptions/Med Rec: New amlodipine 5 mg tablet 5 mg PO QDAY MDD 1 Qty: 30 0RF hydrochlorothiazide 25 mg tablet 25 mg PO QAM MDD 1 Qty: 30 0RF lisinopril 20 mg tablet 20 mg PO QDAY MDD 1 Qty: 30 0RF metoclopramide HCl [Reglan] 10 mg tablet 10 mg PO Q6H MDD 4 PRN (Reason: nausea and vomiting) Qty: 60 0RF No Action hydrochlorothiazide 25 mg tablet 25 mg PO QAM Qty: 30 1RF amlodipine 5 mg tablet 5 mg PO DAILY lisinopril 40 mg tablet 40 mg PO QDAY Patient Comments: TAKE 1 TABLET BY MOUTH EVERY DAY thiamine HCl (vitamin B1) 100 mg capsule 100 mg PO QDAY Qty: 30 0RF multivitamin Tablet 1 tab PO QDAY Qty: 30 0RF chlordiazepoxide HCl 25 mg capsule 25 mg PO PRN PRN (Reason: agitation) Qty: 2 0RF Rx Instructions: Take 1 tablet daily for agitation. Do not exceed 1 tablet in 24 hours. Do not use with alcohol. Referrals: Jacinto Diaz MD [Primary Care Provider] - In 1 week Problem List Clinical Impression: Alcohol abuse, Methamphetamine use, Dizziness, Hypertension Patient/Caregiver Discharge Instructions Education Materials: ED Dizziness, Uncertain Cause, ED Drug Abuse, ED Hypertension, Established, ED Alcohol Abuse Additional Instructions: Follow-up with your primary care doctor in 3 to 5 days for recheck. You can return to the emergency department sooner if symptoms worsen or if you notice any new, concerning issues. Print Language: Prydeinig Stand Alone Forms: Mayuri Award Info., Patient Portal Info Letter
[2024-12-17 09:27] LABS: Basophils # (Auto) 0.0 Thou/mm3 (0.0-0.2); Basophils % (Auto) 0 % (0-2.5); Eosinophils # (Auto) 0.1 Thou/mm3 (0.0-0.5); Eosinophils % (Auto) 1 % (0-10); Hematocrit 36.0 % (41.0-53.0); Hemoglobin 11.8 g/dL (13.5-16.0); Immature Granulocytes Auto 0.02 Thou/mm3 (0.00-0.00); Lymphocytes # (Auto) 0.5 Thou/mm3 (1.0-4.8); Lymphocytes % (Auto) 6 % (10-50); Mean Corpuscular HGB Conc 32.8 g/dl (31.0-37.0); Mean Corpuscular Hemoglobin 28.9 pg (25.0-35.0); Mean Corpuscular Volume 88 fL (80-100); Monocytes # (Auto) 0.5 Thou/mm3 (0.0-0.8); Monocytes % (Auto) 6 % (0-12); Neutrophils # (Auto) 7.1 Thou/mm3 (1.8-7.7); Neutrophils % (Auto) 86 % (37-80); Nucleated Red Blood Cell # 0.00 Thou/mm3 (0.00-0.00); Nucleated Red Blood Cell % 0 /100 WBC (0); Platelet Count 88 Thou/mm3 (140-440); RDW Standard Deviation 49.9 fL (35.1-43.9); Red Blood Count 4.08 Miln/mm3 (4.50-5.90); White Blood Count 8.2 Thou/mm3 (3.8-10.6)
[2024-12-17] MEDS: ONDANSETRON INJ 2 MG/ML INJ 2 ML 4 MG IVP (09:37)
[2024-12-17] MEDS: hydrALAZINE INJ 20 MG/ML VIAL 5 MG IVP (09:37)
[2024-12-17] MEDS: FAMOTIDINE INJ 10 MG/ML VIAL 2 ML 20 MG IVP (09:37)
[2024-12-17 09:38] LABS: INR 1.0 (0.9-1.3); Partial Thromboplastin Time 27.5 Seconds (22.0-36.0); Prothrombin Time 11.3 Seconds (9.0-12.2)
[2024-12-17] MEDS: SODIUM CHLORIDE 0.9% 1000 ML 1,000 ML 999 ML IV (09:38)
[2024-12-17] MEDS: MECLIZINE HCL 25 MG TABLET PO (09:38)
[2024-12-17 09:41] LABS: Alanine Aminotransferase 59 U/L (10-49); Albumin, Serum 4.4 gm/dL (3.5-5.0); Albumin/Globulin Ratio 1.4 (1.2-2.2); Alcohol, Blood Medical < 10.0 mg/dL (0-10.0); Alkaline Phosphatase 422 U/L (46-116); Anion Gap 10 (7-16); Aspartate Amino Transferase 176 U/L (0-34); BUN/Creatinine Ratio 14 Ratio (12-20); Bilirubin,Total 0.8 mg/dL (0.3-1.2); Blood Urea Nitrogen 10 mg/dL (9-23); Calcium 9.1 mg/dL (8.3-10.6); Calcium (Corrected) 9.1 mg/dL (8.5-10.1); Carbon Dioxide 24.8 mMol/L (20.0-31.0); Chloride 104 mMol/L (98-107); Creatinine (Component) 0.7 mg/dL (0.6-1.3); Estimated Creatinine Clearance 159.6 mL/min (>60); Globulin 3.1 gm/dL (2.3-3.5); Glucose 167 mg/dL (74-106); Magnesium 1.3 mg/dL (1.6-2.6); Osmolality,Calculated 280 (275-295); Potassium 3.4 mMol/L (3.4-5.1); Sodium 139 mMol/L (136-145); Total Protein 7.5 gm/dL (5.7-8.2); Troponin I < 0.020 ng/mL (0.0-0.045); eGFR > 60 See Note
[2024-12-17] MEDS: THIAMINE 100 MG TABLET PO (09:41)
[2024-12-17] MEDS: LORazepam 2 MG/ML VIAL 0.5 MG IVP (09:45)
[2024-12-17] MEDS: MULTIVITAMIN 15 ML UDC PO (10:26)
[2024-12-17 10:30] LABS: B-Type Natriuretic Peptide 33 pg/mL (0-100)
[2024-12-17 10:37] LABS: Collection Type, Urine Clean Catch; Squamous Epithelial Cell,Urine 0 /hpf (0-5)
[2024-12-17 11:22] LABS: Bilirubin,Urine Negative (Negative); Blood,Urine Negative (Negative); Clarity,Urine Clear (Clear/Hazy); Color,Urine Lt-Yellow (Lt Yel-Yel); Glucose, Urine Trace (Negative); Ketones,Urine Negative (Negative); Leukocyte Esterase,Urine Negative (Negative); Nitrite,Urine Negative (Negative); PH,Urine 7.0 (5.0-7.0); Protein,Urine Negative (Neg - Trace); RBC,Urine 1 /hpf (0-3); Specific Gravity,Urine 1.012 (1.001-1.035); Urobilinogen,Urine Negative mg/dL (0.0-1.0); WBC,Urine < 1 /hpf (0-5)
[2024-12-17 11:39] LABS: Amphetamine/Methamp Scrn,U Positive (Negative); Barbiturate Screen,Urine Negative (Negative); Benzodiazepines Screen,Urine Negative (Negative); Benzoylecgonine Screen, Ur Negative (Negative); Fentanyl Screen,Urine Negative (Negative); Opiate Screen,Urine Negative (Negative); THC Screen,Urine Negative (Negative)
[2024-12-17] MEDS: METOCLOPRAMIDE INJ 5 MG/ML VIAL 2 ML 10 MG IVP (14:28)
== END 2024-12-17 15:11 | disposition home or self-care (01) ==
PROVIDERS: Nurse Practitioner Primary Care; Emergency Provider Family Medicine; PCP Family Medicine
DX: F10.10 Alcohol abuse, uncomplicated (principal); F15.90 Other stimulant use, unspecified, uncomplicated; R94.31 Abnormal electrocardiogram [ECG] [EKG]; R42 Dizziness and giddiness; R51.9 Headache, unspecified; I10 Essential (primary) hypertension; Y90.0 Blood alcohol level of less than 20 mg/100 ml
CPT/HCPCS: 36415; 70450; 80053; 80307; 80320; 81001; 83735; 83880; 84484; 85025; 85610; 85730; 93005; 96361; 96372; 96374; 96375; 99283; J0360; J2060; J2405; J2765; J3490; J7030; A9270; G0480

== ENCOUNTER 2024-12-26 03:44 | Inpatient (IN) | payer MEDICAID, SELFPAY ==
[2024-12-26] VITALS (10 sets, daily range): BP systolic 97–156; BP diastolic 70–94; PULSE 74–94; RESP 14–20; TEMP 36.1–36.9; O2SAT 94–100; BMI 30.3; BMI 30.5; BMI 30.6
--- NOTE | 2024-12-26 04:07 | PD.EDABDPN ---
ED Abdominal Pain RME/HPI General Chief Complaint: Abdominal Pain Stated complaint: ABD PAIN Time seen by provider: 12/26/24 04:14 Arrival date/time: 12/26/24 03:44 RME / HPI RME / HPI narrative: This section includes all my notes and documentations, including HPI, PE, and ED course. Sagar Garcia MD HPI: 49yo male [place] from home here with abdominal pain, vomiting, and diarrhea. Patient stopped drinking alcohol 6 days ago and the symptoms started and progressively getting worse. No hematemesis or coffee-ground emesis. No rectal bleeding or tarry stools. No seizures. No shaking. No hallucinations. No other complaints. ROS: All negative except as documented in HPI. Physical Exam: General: Alert and oriented. In severe pain. No tremors. Eyes: Conjunctivae and lids clear. ENT: No nasal congestion. Neck: Supple. Heart: RRR. Lungs: No respiratory distress. Good air movement. No rhonchi, wheezing, rales. Abdomen: Soft with diffuse tenderness, difficult to localize. Decreased bowel sounds. No distension. No rebound or guarding. Skin: Warm and dry. Neuro: Alert and oriented X 3. I reviewed EMS notes. I ordered IV fluid, Zofran, Thiamine, Toradol, Dilaudid, and diagnostic tests. At 6 AM on 12/26/2024, the care of the patient was transferred to Dr. Palacio. Sagar Gracia MD Related Data Home Medications ?Medication ?Instructions ?Recorded ?Confirmed amlodipine 5 mg tablet 5 mg PO DAILY 09/20/24 11/15/24 lisinopril 40 mg tablet 40 mg PO QDAY 11/15/24 11/15/24 Previous Rx's ?Medication ?Instructions ?Recorded hydrochlorothiazide 25 mg tablet 25 mg PO QAM #30 tabs 09/15/21 chlordiazepoxide HCl 25 mg capsule 25 mg PO PRN PRN agitation #2 caps 11/17/24 multivitamin 1 tab PO QDAY #30 tabs 11/17/24 thiamine HCl (vitamin B1) 100 mg 100 mg PO QDAY #30 caps 11/17/24 capsule amlodipine 5 mg tablet 5 mg PO QDAY hypertension #30 tabs 12/17/24 hydrochlorothiazide 25 mg tablet 25 mg PO QAM hypertension #30 tabs 12/17/24 lisinopril 20 mg tablet 20 mg PO QDAY hypertension #30 tabs 12/17/24 metoclopramide HCl 10 mg tablet 10 mg PO Q6H PRN nausea and 12/17/24 (Reglan) vomiting #60 tabs Allergies Allergy/AdvReac Type Severity Reaction Status Date / Time No Known Allergies Allergy Verified 12/17/24 08:22 Review of Systems Review of Systems Systems Reviewed: All systems reviewed, normal except as documented Past Medical History Past Medical History CARDIAC: Positive Hypertension; Negative Cardiac Disorders or Congestive Heart Failure RESPIRATORY: Negative Chronic Obstructive Pulmonary Disease (COPD) or Asthma GASTROINTESTINAL: Positive Gastrointestinal Disorders and Gall Bladder Disease GENITOURINARY: Negative Renal Disease MUSCULOSKELETAL: Positive Arthritis ENDOCRINE: Negative Diabetes Mellitus Type 1 or Diabetes Mellitus Type 2 HEMATOLOGIC: Negative Sickle Cell Disease OTHER HISTORY: Positive Falls; Negative Blood Transfusions, Anesthesia Reactions or Cancer Family History FAMILY HISTORY: Positive Family Cardiac Disorders and Family Cancer Social History SMOKING STATUS: Never smoker SECOND HAND EXPOSURE: Yes (sister including marijuana) SUBSTANCE USE: does not use ED Exam Narrative Physical exam: As noted in HPI. Course Quality Measures none Orders Category Date Time Status Bedside COVID-19 Antigen Test NOW Care 12/26/24 04:10 Active Bedside Influenza A&B Antigen Test NOW Care 12/26/24 04:10 Active Saline [Insert IV] NOW Care 12/26/24 04:10 Active Straight [In and Out Catheter] X1 Care 12/26/24 04:[address] abdomen pelvis wo con Stat Exams 12/26/24 04:12 Ordered US gall bladder Stat Exams 12/26/24 04:12 Ordered Alcohol, Blood Medical Stat Lab 12/26/24 04:21 Received Amylase Stat Lab 12/26/24 04:21 Received Bilirubin,Direct Stat Lab 12/26/24 04:21 Received CBC Stat Lab 12/26/24 04:21 Received CMP [Comprehensive Metabolic Panel] Stat Lab 12/26/24 04:21 Received Drug Screen,Urine Stat Lab 12/26/24 04:13 Ordered Lipase Stat Lab 12/26/24 04:21 Received Magnesium Stat Lab 12/26/24 04:21 Received PT [Prothrombin Time with INR] Stat Lab 12/26/24 04:21 Received PTT [Partial Thromboplastin Time] Stat Lab 12/26/24 04:21 Received HYDROmorphone INJ [Dilaudid Inj] Med 12/26/24 04:11 Discontinued 1 mg IVP X1 ONE Ketorolac Inj [Toradol Inj] Med 12/26/24 04:11 Discontinued 30 mg IVP X1 ONE Ondansetron Inj [Zofran Inj] Med 12/26/24 04:11 Discontinued 4 mg IVP X1 ONE Sodium Chloride 0.9% 1000 ml [Ns] 1,000 ml Med 12/26/24 04:11 Active IV 999 mls/hr Thiamine Inj [Vitamin B-1 Inj] Med 12/26/24 04:11 Discontinued 100 mg IVP X1 ONE Vital Signs Vital signs: Vital Signs Temperature 98.3 F 12/26/24 03:47 Pulse Rate 87 12/26/24 03:47 Respiratory Rate 19 12/26/24 03:47 Blood Pressure 156/92 H 12/26/24 03:47 Pulse Oximetry (%) 99 12/26/24 03:47 Oxygen Delivery Method Room Air 12/26/24 03:47 Abdominal Pain MDM MDM Narrative MDM Narrative:: 49yo male [place] from home here with abdominal pain, vomiting, and diarrhea. Patient stopped drinking alcohol 6 days ago and the symptoms started and progressively getting worse. No hematemesis or coffee-ground emesis. No rectal bleeding or tarry stools. No seizures. No shaking. No hallucinations. No other complaints. Patient data External records reviewed:: [facility] previous records (Per chart review, patient was seen here on 12/17/24 for alcohol intoxication.) and EMS form Clinical information provided by:: patient Social determinants that could affect healthcare access:: alcohol use (history of) Patient has the following chronic illnesses:: HTN How is presenting disease/condition affected by chronic disease/condition?: uneffected by Evaluation data The following diagnostics were reviewed and interpreted by me:: lab results Lab and/or radiology exams considered but not ordered:: none Interpretation Summary: Pending. Medications / Prescriptions Medications or Prescriptions considered but not ordered:: none Medication administrations:: Medication Administration History Sodium Chloride (Ns) 1,000 mls @ 999 mls/hr IV .Q1H1M ONE Stop: 12/26/24 05:11 Last Admin: 12/26/24 04:39 Dose: 999 mls/hr Documented By: BD Discontinued Medications Hydromorphone HCl (Hydromorphone Inj 2 Mg/Ml Vial) 1 mg IVP X1 ONE Stop: 12/26/24 04:12 Last Admin: 12/26/24 04:39 Dose: 1 mg Documented By: BD Ketorolac Tromethamine (Ketorolac Inj 30 Mg/Ml Vial) 30 mg IVP X1 ONE Stop: 12/26/24 04:12 Last Admin: 12/26/24 04:38 Dose: 30 mg Documented By: BD Ondansetron HCl (Ondansetron Inj 2 Mg/Ml Inj 2 Ml) 4 mg IVP X1 ONE; Protocol Stop: 12/26/24 04:12 Last Admin: 12/26/24 04:38 Dose: 4 mg Documented By: BD Thiamine HCl (Thiamine Inj 100 Mg/Ml Vial 2 Ml) 100 mg IVP X1 ONE Stop: 12/26/24 04:12 Last Admin: 12/26/24 04:38 Dose: 100 mg Documented By: BD I ordered thiamine, Dilaudid, Toradol, Zofran, NS Consultations Consultation(s) initiated? (list below): No Diagnosis Differential diagnosis abdominal pain: acute appendicitis, constipation, diverticulitis, gastroenteritis, pancreatitis, small bowel obstruction and other (Alcohol withdrawal) Most likely diagnosis given after review of the tests above:: Diagnostic test results are pending. Admission Indicated Admission indicated?: not indicated Explain why admission is indicated or not indicated:: Diagnostic test results are pending. Admission Request Was there a request for admission?: No Disposition Plan Disposition Plan: other (specify) (Signed out to Dr. Palacio at 6 AM.) Discharge Plan Prescriptions/Referrals Prescriptions/Med Rec: No Action hydrochlorothiazide 25 mg tablet 25 mg PO QAM Qty: 30 1RF amlodipine 5 mg tablet 5 mg PO DAILY amlodipine 5 mg tablet 5 mg PO QDAY MDD 1 Qty: 30 0RF hydrochlorothiazide 25 mg tablet 25 mg PO QAM MDD 1 Qty: 30 0RF lisinopril 20 mg tablet 20 mg PO QDAY MDD 1 Qty: 30 0RF metoclopramide HCl [Reglan] 10 mg tablet 10 mg PO Q6H MDD 4 PRN (Reason: nausea and vomiting) Qty: 60 0RF lisinopril 40 mg tablet 40 mg PO QDAY Patient Comments: TAKE 1 TABLET BY MOUTH EVERY DAY thiamine HCl (vitamin B1) 100 mg capsule 100 mg PO QDAY Qty: 30 0RF multivitamin Tablet 1 tab PO QDAY Qty: 30 0RF chlordiazepoxide HCl 25 mg capsule 25 mg PO PRN PRN (Reason: agitation) Qty: 2 0RF Rx Instructions: Take 1 tablet daily for agitation. Do not exceed 1 tablet in 24 hours. Do not use with alcohol. Problem List Clinical Impression: Abdominal pain, Alcohol abuse Patient/Caregiver Discharge Instructions Print Language: Lao
--- NOTE | 2024-12-26 04:12 | XR_ITS ---
Examination: CT abdomen and pelvis without contrast. Coronal 3-D reconstructions. Sagittal 2-D reconstructions. Date and time of exam:December 26, 2024, 0510 hours Comparison September 19, 2024 INDICATIONS: Onset abdominal pain today, history of alcohol abuse CTDI: vol (mGy): 9.60. DLP: (mGycm): 662. Technique: Axial images of the abdomen have been obtained, 3 mm slice thickness Intravenous contrast material has not been administered. Low dose protocols were performed. One or more of the following dose reduction techniques were used; automated exposure control, adjustment of the mA and/or KV according to patient size, use of iterative reconstruction technique. Findings: Mild enlargement cardiac contour Small retrocardiac gastric hernia Liver irregular in contour and enlarged, 21 cm No focal liver or splenic lesions, splenomegaly 16 cm Cholelithiasis No pancreatic or adrenal mass Moderate left renal parenchymal scar formation, no hydronephrosis renal or ureteral calculi Tiny fat-containing umbilical hernia No pericecal inflammatory change No bowel obstruction Urinary bladder wall thickening up to 11 mm No bladder calculi No significant prostatomegaly Advanced degenerative disc disease L5-S1 IMPRESSION: Moderate hepatomegaly Primary hepatocellular disease versus cirrhosis Splenomegaly Urinary bladder wall thickening up to 11 mm, consider cystitis Significant scarring left kidney
--- NOTE | 2024-12-26 04:12 | XR_ITS ---
Examination: Abdomen sonogram, Limited Date and time of exam: December 26, 2024 0452 hours INDICATIONS: Abdominal pain and diarrhea beginning one week ago Technique: Real-time cortes scale transabdominal sonographic images of the upper abdomen obtained. Findings: Gallbladder not visualized Normal common bile duct 0.3 cm Pancreatic head 3.8 cm Liver 17.7 cm lobular contour no focal liver lesions Normal hepatopedal portal venous flow Patent IVC IMPRESSION: Normal common bile duct. Prominent pancreatic head 3.8 cm Moderate hepatomegaly primary hepatocellular disease
[2024-12-26] MEDS: ONDANSETRON INJ 2 MG/ML INJ 2 ML 4 MG IVP ×2 (04:38→13:19)
[2024-12-26] MEDS: THIAMINE INJ 100 MG/ML VIAL 2 ML IVP (04:38)
[2024-12-26] MEDS: KETOROLAC INJ 30 MG/ML VIAL IVP (04:38)
[2024-12-26] MEDS: HYDROmorphone INJ 2 MG/ML VIAL 1 MG IVP ×2 (04:39→18:34)
[2024-12-26] MEDS: SODIUM CHLORIDE 0.9% 1000 ML 1,000 ML 999 ML IV ×2 (04:39→08:18)
[2024-12-26 04:55] LABS: Basophils # (Auto) 0.1 Thou/mm3 (0.0-0.2); Basophils % (Auto) 1 % (0-2.5); Eosinophils # (Auto) 0.4 Thou/mm3 (0.0-0.5); Eosinophils % (Auto) 2 % (0-10); Hematocrit 39.1 % (41.0-53.0); Hemoglobin 13.0 g/dL (13.5-16.0); Immature Granulocytes Auto 0.16 Thou/mm3 (0.00-0.00); Lymphocytes # (Auto) 1.3 Thou/mm3 (1.0-4.8); Lymphocytes % (Auto) 5 % (10-50); Mean Corpuscular HGB Conc 33.2 g/dl (31.0-37.0); Mean Corpuscular Hemoglobin 29.0 pg (25.0-35.0); Mean Corpuscular Volume 87 fL (80-100); Monocytes # (Auto) 2.3 Thou/mm3 (0.0-0.8); Monocytes % (Auto) 10 % (0-12); Neutrophils # (Auto) 19.0 Thou/mm3 (1.8-7.7); Neutrophils % (Auto) 82 % (37-80); Nucleated Red Blood Cell # 0.00 Thou/mm3 (0.00-0.00); Nucleated Red Blood Cell % 0 /100 WBC (0); Platelet Count 282 Thou/mm3 (140-440); RDW Standard Deviation 49.2 fL (35.1-43.9); Red Blood Count 4.49 Miln/mm3 (4.50-5.90); White Blood Count 23.1 Thou/mm3 (3.8-10.6)
--- NOTE | 2024-12-26 04:57 | PC.NURSE ---
PT DOES NOT WANT IN AND OUT CATH
[2024-12-26 05:09] LABS: INR 1.1 (0.9-1.3); Partial Thromboplastin Time 32.6 Seconds (22.0-36.0); Prothrombin Time 11.9 Seconds (9.0-12.2)
--- NOTE | 2024-12-26 05:30 | PRELIM_ITS ---
CT scan of the abdomen and pelvis without intravenous contrast (axial sections with sagittal and coronal reformats) December 26, 2024 at 0510 hours Clinical History: Abdominal pain. Comparison: No prior study is available for comparison. Findings: The lung bases are clear. The pancreas, kidneys and adrenals are unremarkable on this noncontrast study. Irregular liver margins. Splenomegaly with craniocaudal diameter of 16.9 cm. Gallstones without evidence of acute cholecystitis. No evidence of bowel obstruction. No evidence of appendicitis. There is no mesenteric or retroperitoneal adenopathy. Mild thickening of the colonic wall and fluid stools throughout the colon. The urinary bladder is nondistended, limited evaluation. There is no free fluid or free air. Degenerative changes of the imaged portions of the spine. Chronic multilevel disc disease. No acute fractures. Vascular calcifications. Small hiatus hernia. Impression: 1. Probable mild colitis. 2. Cirrhosis associated with splenomegaly. 3. Small hiatus hernia. Report Electronically Signed By: Edwin Garrido 12/26/2024 5:30:07 AM [EST]
--- NOTE | 2024-12-26 05:33 | PRELIM_ITS ---
Gallbladder ultrasound with Doppler and wave Doppler spectral analysis. December 26, 2024 0452 hours Clinical history: RUQ tenderness. Comparison: No prior study is available for comparison. Findings: Echogenic liver with irregular margins. The gallbladder was not visualized, probably contracted. The common duct is normal in caliber at 3.3 mm. No free fluid is demonstrated on the submitted images. The portal vein is patent with hepatopetal flow normal wave Doppler spectral analysis. The hepatic veins are patent with normal with Doppler spectral analysis. The inferior vena cava is patent with normal wave Doppler spectral analysis. The imaged portions of the right kidney are within normal limits. Impression: Cirrhosis. Report Electronically Signed By: Edwin Garrido 12/26/2024 5:33:33 AM [EST]
[2024-12-26 05:37] LABS: Alanine Aminotransferase 75 U/L (10-49); Albumin, Serum 4.7 gm/dL (3.5-5.0); Albumin/Globulin Ratio 1.3 (1.2-2.2); Alcohol, Blood Medical < 3.0 mg/dL (0-10.0); Alkaline Phosphatase 304 U/L (46-116); Amylase 103 U/L (30-118); Anion Gap 18 (7-16); Aspartate Amino Transferase 58 U/L (0-34); BUN/Creatinine Ratio 5 Ratio (12-20); Bilirubin,Direct 0.4 mg/dL (0.0-0.3); Bilirubin,Total 0.8 mg/dL (0.3-1.2); Blood Urea Nitrogen 29 mg/dL (9-23); Calcium 9.5 mg/dL (8.3-10.6); Calcium (Corrected) 9.5 mg/dL (8.5-10.1); Carbon Dioxide 20.9 mMol/L (20.0-31.0); Chloride 98 mMol/L (98-107); Creatinine (Component) 5.4 mg/dL (0.6-1.3); Estimated Creatinine Clearance 20.5 mL/min (>60); Globulin 3.5 gm/dL (2.3-3.5); Glucose 142 mg/dL (74-106); Lipase 47 U/L (12-53); Magnesium 2.0 mg/dL (1.6-2.6); Osmolality,Calculated 281 (275-295); Potassium 2.9 mMol/L (3.4-5.1); Sodium 137 mMol/L (136-145); Total Protein 8.2 gm/dL (5.7-8.2); eGFR 12 See Note
--- NOTE | 2024-12-26 06:47 | PD.EDADDENDU ---
Emergency Room Addendum Addendum Narrative: 0600: Care assumed from Dr. Garcia, the previous shift emergency physician. Past medical, surgical, social and family history reviewed. Vitals and home medications reviewed. I will assume the care of the patient at this time, pending remainder of diagnostic labs and final disposition. Please refer to the emergency department record for history and examination from initial visit.? Physical exam by me shows patient under no acute distress at this time. 1000: Discussed test HPI, PMHx, lab, radiology results and/or management with resident working with the hospitalist. Will admit for further evaluation and management. Accepts patient for admission. Results Objective Laboratory: Laboratory Last Values WBC 23.1 Thou/mm3 (3.8-10.6) H 12/26/24 04:21 RBC 4.49 Miln/mm3 (4.50-5.90) L 12/26/24 04:21 Hgb 13.0 g/dL (13.5-16.0) L 12/26/24 04:21 Hct 39.1 % (41.0-53.0) L 12/26/24 04:21 MCV 87 fL (80-100) 12/26/24 04:21 MCH 29.0 pg (25.0-35.0) 12/26/24 04:21 MCHC 33.2 g/dl (31.0-37.0) 12/26/24 04:21 RDW Std Deviation 49.2 fL (35.1-43.9) H 12/26/24 04:21 Plt Count 282 Thou/mm3 (140-440) D 12/26/24 04:21 Neut % (Auto) 82 % (37-80) H 12/26/24 04:21 Lymph % (Auto) 5 % (10-50) L 12/26/24 04:21 Eagle % (Auto) 10 % (0-12) 12/26/24 04:21 Eos % (Auto) 2 % (0-10) 12/26/24 04:21 Baso % (Auto) 1 % (0-2.5) 12/26/24 04:21 Neut # (Auto) 19.0 Thou/mm3 (1.8-7.7) H 12/26/24 04:21 Lymph # (Auto) 1.3 Thou/mm3 (1.0-4.8) 12/26/24 04:21 Eagle # (Auto) 2.3 Thou/mm3 (0.0-0.8) H 12/26/24 04:21 Eos # (Auto) 0.4 Thou/mm3 (0.0-0.5) 12/26/24 04:21 Baso # (Auto) 0.1 Thou/mm3 (0.0-0.2) 12/26/24 04:21 Immature Gran # (Auto) 0.16 Thou/mm3 (0.00-0.00) H 12/26/24 04:21 Absolute Nucleated RBC 0.00 Thou/mm3 (0.00-0.00) 12/26/24 04:21 Immature Gran % 1 % (0-0) H 12/26/24 04:21 Nucleated RBC % 0 /100 WBC (0) 12/26/24 04:21 PT 11.9 Seconds (9.0-12.2) 12/26/24 04:21 INR 1.1 (0.9-1.3) 12/26/24 04:21 APTT 32.6 Seconds (22.0-36.0) 12/26/24 04:21 Sodium 137 mMol/L (136-145) 12/26/24 04:21 Potassium 2.9 mMol/L (3.4-5.1) L 12/26/24 04:21 Chloride 98 mMol/L (98-107) 12/26/24 04:21 Carbon Dioxide 20.9 mMol/L (20.0-31.0) 12/26/24 04:21 Anion Gap 18 (7-16) H 12/26/24 04:21 BUN 29 mg/dL (9-23) H 12/26/24 04:21 Creatinine 5.4 mg/dL (0.6-1.3) H* 12/26/24 04:21 Estim Creat Clear Calc 20.5 mL/min (>60) L 12/26/24 04:21 eGFR 12 See Note (60-) L* 12/26/24 04:21 BUN/Creatinine Ratio 5 Ratio (12-20) L 12/26/24 04:21 Glucose 142 mg/dL (74-106) H 12/26/24 04:21 Calculated Osmolality 281 (275-295) 12/26/24 04:21 Calcium 9.5 mg/dL (8.3-10.6) 12/26/24 04:21 Corrected Calcium 9.5 mg/dL (8.5-10.1) 12/26/24 04:21 Magnesium 2.0 mg/dL (1.6-2.6) 12/26/24 04:21 Total Bilirubin 0.8 mg/dL (0.3-1.2) 12/26/24 04:21 Direct Bilirubin 0.4 mg/dL (0.0-0.3) H 12/26/24 04:21 AST 58 U/L (0-34) H 12/26/24 04:21 ALT 75 U/L (10-49) H 12/26/24 04:21 Alkaline Phosphatase 304 U/L (46-116) H 12/26/24 04:21 Total Protein 8.2 gm/dL (5.7-8.2) 12/26/24 04:21 Albumin 4.7 gm/dL (3.5-5.0) 12/26/24 04:21 Globulin 3.5 gm/dL (2.3-3.5) 12/26/24 04:21 Albumin/Globulin Ratio 1.3 (1.2-2.2) 12/26/24 04:21 Amylase 103 U/L (30-118) 12/26/24 04:21 Lipase 47 U/L (12-53) 12/26/24 04:21 Urine Opiates Screen Negative (Negative) 12/26/24 06:00 Urine Fentanyl Screen Negative (Negative) 12/26/24 06:00 Ur Barbiturates Screen Negative (Negative) 12/26/24 06:00 U Amphetamin/Meth Scrn Positive (Negative) A 12/26/24 06:00 U Benzodiazepines Scrn Negative (Negative) 12/26/24 06:00 U Cocaine Metab Screen Negative (Negative) 12/26/24 06:00 U Marijuana (THC) Screen Negative (Negative) 12/26/24 06:00 Ethyl Alcohol < 3.0 mg/dL (0-10.0) 12/26/24 04:21 Imaging: Procedure(s): US gall bladder Accession Number(s): [id number] cc: Jacinto Diaz MD; Sagar Garcia MD; Apolinar Ye MD~ Examination: Abdomen sonogram, Limited Date and time of exam: December 26, 2024 0452 hours INDICATIONS: Abdominal pain and diarrhea beginning one week ago Technique: Real-time cortes scale transabdominal sonographic images of the upper abdomen obtained. Findings: Gallbladder not visualized Normal common bile duct 0.3 cm Pancreatic head 3.8 cm Liver 17.7 cm lobular contour no focal liver lesions Normal hepatopedal portal venous flow Patent IVC IMPRESSION: Normal common bile duct. Prominent pancreatic head 3.8 cm Moderate hepatomegaly primary hepatocellular disease Dictated By: Apolinar Ye MD Procedure(s): CT abdomen pelvis wo [facility] Accession Number(s): [id number] cc: Jacinto Diaz MD; Sagar Garcia MD; Apolinar Ye MD~ Examination: CT abdomen and pelvis without contrast. Coronal 3-D reconstructions. Sagittal 2-D reconstructions. Date and time of exam:December 26, 2024, 0510 hours Comparison September 19, 2024 INDICATIONS: Onset abdominal pain today, history of alcohol abuse CTDI: vol (mGy): 9.60. DLP: (mGycm): 662. Technique: Axial images of the abdomen have been obtained, 3 mm slice thickness Intravenous contrast material has not been administered. Low dose protocols were performed. One or more of the following dose reduction techniques were used; automated exposure control, adjustment of the mA and/or KV according to patient size, use of iterative reconstruction technique. Findings: Mild enlargement cardiac contour Small retrocardiac gastric hernia Liver irregular in contour and enlarged, 21 cm No focal liver or splenic lesions, splenomegaly 16 cm Cholelithiasis No pancreatic or adrenal mass Moderate left renal parenchymal scar formation, no hydronephrosis renal or ureteral calculi Tiny fat-containing umbilical hernia No pericecal inflammatory change No bowel obstruction Urinary bladder wall thickening up to 11 mm No bladder calculi No significant prostatomegaly Advanced degenerative disc disease L5-S1 IMPRESSION: Moderate hepatomegaly Primary hepatocellular disease versus cirrhosis Splenomegaly Urinary bladder wall thickening up to 11 mm, consider cystitis Significant scarring left kidney Dictated By: Apolinar Ye MD
[2024-12-26 07:16] LABS: Amphetamine/Methamp Scrn,U Positive (Negative); Barbiturate Screen,Urine Negative (Negative); Benzodiazepines Screen,Urine Negative (Negative); Benzoylecgonine Screen, Ur Negative (Negative); Fentanyl Screen,Urine Negative (Negative); Opiate Screen,Urine Negative (Negative); THC Screen,Urine Negative (Negative)
[2024-12-26] MEDS: POTASSIUM CHL 10 mEq IVPB 10 MEQ/100 ML BAG 100 MEQ IV ×4 (08:19→13:25)
[2024-12-26] MEDS: LORazepam 2 MG/ML VIAL 0.5 MG IVP (08:20)
--- NOTE | 2024-12-26 10:16 | PC.NURSE ---
DR TIRADO FROM NEPHROLOGY IS AT BEDSIDE OF PATIENT DOING AN ASSESSMENT WITH PT SITTING UP IN BED SPEAKING
--- NOTE | 2024-12-26 10:21 | PC.NURSE ---
Patient wanting to go home, states he feels better, 07/22 abd. pain, informed patient Dr. Petersen, electronic prepress operator stated [facility] to come to er at approx. 12pm to evaluate for admission and educated him on the need of potassium ivpb needed for low potassium, patient verbalizes understanding and agress to stay in ER at this time. Call light within reach
--- NOTE | 2024-12-26 10:37 | XR_ITS ---
Examination: Retroperitoneal ultrasound, complete Technique: Multiple high resolution grayscale images of the retroperitoneum obtained, including kidneys and bladder. Exam date and time:December 26, 2024 1201 hours INDICATIONS: Acute renal insufficiency on laboratory examination today. FINDINGS: Right kidney 11.7 cm cortex 2.0 cm Left kidney 9.4 cm renal cortex 1.0 cm 13 mm lower pole left renal cyst No hydronephrosis Contracted urinary bladder Prostatomegaly not evident no prostate nodules IMPRESSION: No hydronephrosis or renal calculi
--- NOTE | 2024-12-26 10:48 | PD.RESCONSUL ---
HPI Data of Consult Consult date: 12/26/24 Primary Care Provider: Jacinto Diaz MD Consult Narrative Reason for consult: RANDELL History of present illness: Anthony Mauro is a 49yo male with PMHx of HTN, cholelithiasis, BIBA from home here with abdominal pain, vomiting, and diarrhea. Patient stopped drinking alcohol 6 days ago and the symptoms started and progressively getting worse. Patient has recently been at the hospital for alcohol use/intoxication multiple times throughout the last few months. No hematemesis or coffee-ground emesis. No rectal bleeding or tarry stools. No seizures. No shaking. No hallucinations. No other complaints. ED course Patient was given IV fluids, Zofran, Thiamine, Toradol, Dilaudid. Notable labs include WBC 23.1, K 2.9, A-Gap 18, BUN 29, Cr 5.4, eGFR 12, AST 58, ALT 75, Alk Jose 304. CT AP showed moderate heptomegaly (primary hepatocellular vs cirrhosis), urinary bladder wall thickening, significatn L renal scarring. Gall Bladder US showed Normal CBD. Patient is being consulted to nephrology for RANDELL. Patient currently states he is feeling much better right now and is sitting up at the foot of the bed. Patient states he no longer has abdominal pain or nausea. States he continues to have a little bit of diarrhea that he described as dark colored, but did not notice any blood. States he has been able to make urine. Patient denies having any fever, headache, chest pain, shortness of breath, abdominal pain, nausea, vomiting, dysuria. Notable labs include WBC 18.5, K 3.4, BUN 33, Cr 5.7, eGFR 11, AST 49, ALT 57, Alk Phos 244. Renal Ultrasound showed no hydronephrosis or renal calculi. cc:: cc: Review of Systems Review of Systems Narrative Review of Systems: Constitutional Symptoms: Patient in no acute distress, sitting calmly HEENT: Denies eye itching auditory symptoms, denies congestion, sore throat, oral problems Cardiovascular: Patient denies any chest pain, palpitations, or syncope. Respiratory: Denies shortness of breath or dyspnea Gastrointestinal: Denies abdominal pain, nausea, vomiting Genitourinary: No urinary complaints reported. Musculoskeletal: No joint pain or problems moving any joints/limbs. Integumentary: No rashes or itchiness Neurological: Patient denies any headaches, dizziness, or neurological disturbances. Psychiatric: Patient reports mild anxiety Past Medical History Past Medical History CARDIAC: Positive Hypertension; Negative Cardiac Disorders or Congestive Heart Failure RESPIRATORY: Negative Chronic Obstructive Pulmonary Disease (COPD) or Asthma GASTROINTESTINAL: Positive Gastrointestinal Disorders and Gall Bladder Disease GENITOURINARY: Negative Renal Disease MUSCULOSKELETAL: Positive Arthritis ENDOCRINE: Negative Diabetes Mellitus Type 1 or Diabetes Mellitus Type 2 HEMATOLOGIC: Negative Sickle Cell Disease OTHER HISTORY: Positive Falls; Negative Blood Transfusions, Anesthesia Reactions or Cancer Family History FAMILY HISTORY: Positive Family Cardiac Disorders and Family Cancer Social History SMOKING STATUS: Never smoker SECOND HAND EXPOSURE: Yes (sister including marijuana) SUBSTANCE USE: does not use Exam Vital Signs Temp Pulse Resp BP Pulse Ox O2 Del Method 98.3 F 83 16 112/71 94 L Room Air 12/26/24 08:12 12/26/24 10:42 12/26/24 08:12 12/26/24 08:12 12/26/24 08:12 12/26/24 08:12 Narrative Exam Gen: alert and oriented x3, NAD, vitals reviewed Head/Neck: NCAT; trachea appears midline, no gross LAD ENT: EOMI grossly, anicteric sclerae; MMM Resp: normal respiratory effort, symmetric chest rise CV: RRR, no murmurs heard; extremities well perfused GI: non-distended; not tender to palpation, bowel sounds heard Ext: no clubbing, cyanosis or edema Skin: no new rash or lesions on limited visual exam Neuro/MSK: moves all extremities Psych: normal mood; appropriate affect Results Labs 12/26/24 13:57 12/26/24 13:57 Labs: Short CBC 12/26/24 Range/Units 04:21 WBC 23.1 H (3.8-10.6) Thou/mm3 Hgb 13.0 L (13.5-16.0) g/dL Hct 39.1 L (41.0-53.0) % Plt Count 282 D (140-440) Thou/mm3 BMP 12/26/24 04:21 Sodium 137 Potassium 2.9 L Chloride 98 Carbon Dioxide 20.9 BUN 29 H Creatinine 5.4 H* Glucose 142 H Calcium 9.5 Liver Function 12/26/24 Range/Units 04:21 Total Bilirubin 0.8 (0.3-1.2) mg/dL Direct Bilirubin 0.4 H (0.0-0.3) mg/dL AST 58 H (0-34) U/L ALT 75 H (10-49) U/L Alkaline Phosphatase 304 H (46-116) U/L Albumin 4.7 (3.5-5.0) gm/dL Quality Measures Quality Measures VTE prophylaxis Medications Home Medications and Allergies Home Medications ?Medication ?Instructions ?Recorded ?Confirmed ?Type amlodipine 5 mg tablet 5 mg PO DAILY 09/20/24 12/26/24 History lisinopril 40 mg tablet 40 mg PO QDAY 11/15/24 12/26/24 History albuterol sulfate 90 mcg/actuation 1 inh inhalation BID PRN 12/26/24 12/26/24 History aerosol inhaler bronchospasm baclofen 10 mg tablet 10 mg PO Q8H PRN muscle spasm 12/26/24 12/26/24 History diclofenac sodium 1 % topical gel 2 g topical QDAY 12/26/24 12/26/24 History ibuprofen 600 mg tablet 600 mg PO TID 12/26/24 12/26/24 History Allergies Allergy/AdvReac Type Severity Reaction Status Date / Time No Known Allergies Allergy Verified 12/17/24 08:22 Visit Medications Heparin Sodium (Porcine) (Heparin Sod Inj 5000 Unit/Ml Vial) 5,000 unit SC Q12HR ROYER Stop: 01/09/25 20:59 Potassium Chloride (Kcl Ivpb) 10 meq in 100 mls @ 100 mls/hr IV Q1H ROYER Stop: 12/26/24 11:53 Last Admin: 12/26/24 10:21 Dose: 100 mls/hr Ondansetron HCl (Ondansetron Inj 2 Mg/Ml Inj 2 Ml) 4 mg IVP Q6H PRN; Protocol PRN Reason: NAUSEA OR VOMITING Stop: 01/25/25 10:18 Discontinued Medications Hydromorphone HCl (Hydromorphone Inj 2 Mg/Ml Vial) 1 mg IVP X1 ONE Stop: 12/26/24 04:12 Last Admin: 12/26/24 04:39 Dose: 1 mg Sodium Chloride (Ns) 1,000 mls @ 999 mls/hr IV .Q1H1M ONE Stop: 12/26/24 05:11 Last Infusion: 12/26/24 07:00 Dose: Infused Sodium Chloride (Ns) 1,000 mls @ 999 mls/hr IV .Q1H1M ONE Stop: 12/26/24 08:53 Last Infusion: 12/26/24 09:55 Dose: Infused Ketorolac Tromethamine (Ketorolac Inj 30 Mg/Ml Vial) 30 mg IVP X1 ONE Stop: 12/26/24 04:12 Last Admin: 12/26/24 04:38 Dose: 30 mg Lorazepam (Lorazepam 2 Mg/Ml Vial) 0.5 mg IVP X1 ONE Stop: 12/26/24 07:58 Last Admin: 12/26/24 08:20 Dose: 0.5 mg Ondansetron HCl (Ondansetron Inj 2 Mg/Ml Inj 2 Ml) 4 mg IVP X1 ONE; Protocol Stop: 12/26/24 04:12 Last Admin: 12/26/24 04:38 Dose: 4 mg Pantoprazole Sodium (Pantoprazole Inj 40 Mg Vial) 40 mg IVP X1 ONE Stop: 12/26/24 07:56 Last Admin: 12/26/24 08:19 Dose: 40 mg Thiamine HCl (Thiamine Inj 100 Mg/Ml Vial 2 Ml) 100 mg IVP X1 ONE Stop: 12/26/24 04:12 Last Admin: 12/26/24 04:38 Dose: 100 mg Assessment & Plan Plan Anthony Mauro is a 49yo male with PMHx of chronic alcohol use, HTN, cholelithiasis, BIBA from home here with abdominal pain, vomiting, and diarrhea after recent voluntary cessation of alcohol. Nephrology consulted for management of RANDELL. #RANDELL Likely pre-renal due to poor oral intake and dehydration. History shows days of poor intake with vomiting/diarrhea. Patient's Cr initially 5.4 (baseline ~1.0). Patient so far has been given 2 L NS and has been getting 100 ml KCl x4 (K 2.9). CT AP showed Significant scarring left kidney. Renal US showed No hydronephrosis or renal calculi. - Started maintenance fluids x1 NS 1 L @ 90 mls/hr - monitor chemistry - renally dose medications #Hypokalemia #Alcohol Withdrawal Risk #Hepatomegaly with Elevated LFTs #Abdominal Pain, Vomiting, and Diarrhea #Hypertension #Methamphetamine Use (last use 1 month ago) -above managed by primary team Thank you for allowing us to take part in the care of Mr. Mauro Plan of care discussed with attending, Dr. Gi Petersen MD PGY-1 Attending Provider Attestation/Addendum Patient seen and examined with resident physician Dr. Petersen. Note reviewed, agree with findings and recommendations with few changes made. RANDELL-prerenal azotemia with decreased p.o. intake and abdominal discomfort. Currently he seems to be slightly better. Patient seen in the ER. Renal ultrasound showed no hydronephrosis. Thank you Elisabet for allowing me to participate in the care of Mr. Cruz
[2024-12-26] MEDS: HYDROmorphone INJ 2 MG/ML VIAL IVP ×2 (12:15→13:21)
[2024-12-26 12:23] LABS: Hepatitis A Antibody IgM Non Reactive (Non React); Hepatitis B Core Antibody IgM Non Reactive (Non React); Hepatitis B Surface Antigen Non Reactive (Non React); Hepatitis C Antibody Non Reactive (Non React)
--- NOTE | 2024-12-26 12:29 | ESHP_ITS ---
<Statement entered by Harshil Lee MD - 12/26/24 18:24> Patient seen and examined at bedside. I discussed and supervised with the international trade teacher physician who took care of this patient. I personally saw and examined the patient. I agree with most of the assessment and plan. Patient presented with complaint of nausea, vomiting, diarrhea, has had similar symptoms in the past related to drug/alcohol use. Found to have significant acute renal failure, likely due to dehydration and complicated by drug use. Utox positive for meth use. Patient reports significant drinking history last drink 7 days ago. Nephro consulted. IV fluids. Patient on clear liquid diet. Held diuretics, CIWA protocol in place. Giving Rocephin in setting of cystitis on CT, leukocytosis. Plan of care discussed with attending Dr. Arroyo. Harshil Lee MD PGY-2 Documentation for date of: 12/26/24 HPI History of Present Illness Chief complaint: Abdominal pain, vomiting, and diarrhea History of present illness: 49-year-old male with a history of hypertension, gallstones, arthritis, and chronic alcohol use (previously drinking 1.5 gallons vodka/day for 5 years, quit 7 days ago) presents with abdominal pain, vomiting, and diarrhea that began yesterday morning. He describes constant, mid-epigastric and lower abdominal soreness, worsened by movement. He reports about 15 episodes of dark brown, non- bloody diarrhea and two small-volume, non-bloody episodes of vomiting, triggered by liquids. He has a longstanding history of chronic vomiting from alcohol. Since quitting alcohol, symptoms have worsened. He denies melena, hematemesis, fever, chills, or rash. He notes dark yellow urine but no hematuria, jaundice, or bruising. He reports SOB while working in the past two days, now resolved. He has had hallucinations during previous withdrawal episodes but none currently. Denies seizures. He has been hospitalized ~6 times for alcohol-related issues, completed 3 months of rehab, and relapsed shortly after. He now reports self-motivated cessation of alcohol. He is tolerating sips of water. No current complaints other than abdominal pain. ED Course: In the emergency department, the patient presented with complaints of abdominal pain, vomiting, and diarrhea that began the day prior. He reported multiple episodes of non-bloody diarrhea and small-volume vomiting, along with significant abdominal discomfort. On initial evaluation, he appeared volume depleted but hemodynamically stable. He was given intravenous fluids for suspected dehydration, along with thiamine, Zofran for nausea, Toradol for pain, and a dose of Dilaudid for severe abdominal pain. Initial labs revealed leukocytosis, hypokalemia, and acute kidney injury with a creatinine of 5.4, elevated from a baseline of 0.9. Liver enzymes were mildly elevated with a significantly elevated alkaline phosphatase. A urine toxicology screen was positive for amphetamine and methamphetamine. Imaging studies, including CT abdomen/pelvis, showed moderate hepatomegaly, possible cirrhotic changes, splenomegaly, bladder wall thickening, and scarring in the left kidney. Gallbladder ultrasound revealed hepatomegaly with a prominent pancreatic head measuring 3.8 cm but no biliary ductal dilation. He was admitted to the internal medicine service for further evaluation and management of RANDELL, possible alcoholic hepatitis, and monitoring for alcohol withdrawal. Past Medical History: Hypertension, Gallstones, Arthritis and Alcohol use disorder Home Medications: Metoclopramide, Hydrochlorothiazide, Baclofen, Amlodipine and Lisinopril Allergies: No known drug allergies Family History: Both parents and multiple siblings with cardiac disease requiring stents No liver, renal, or GI cancers known Social History: Lives with sisters in parents house Works at a [employer] center Smoked tobacco occasionally denies current tobbaco use or denies marijuana use Last methamphetamine use: ~1 month ago Alcohol: quit 7 days ago after 5 years of heavy use One prior rehab stay (3 months) Supportive home environment No recent travel Surgical History: No prior surgeries Exam Vital Signs Temp Pulse Resp BP Pulse Ox O2 Del Method 98.1 F 84 16 99/78 95 Room Air 12/26/24 12:22 12/26/24 12:22 12/26/24 12:22 12/26/24 12:22 12/26/24 12:12/26/24 12:22 Narrative Exam Physical Exam: General: Alert, oriented, mild distress from pain HEENT: Normocephalic, atraumatic. Heart: Regular rate and rhythm, no murmurs. Lungs: Clear to auscultation with no wheezing or crackles. Abdomen: Tender to palpation in epigastric and lower abdomen; no rebound, guarding, distension, ascites, jaundice, or bruising Extremities: No edema Results: Labs 12/27/24 04:27 12/27/24 04:27 Labs: Short CBC 12/26/24 Range/Units 04:21 WBC 23.1 H (3.8-10.6) Thou/mm3 Hgb 13.0 L (13.5-16.0) g/dL Hct 39.1 L (41.0-53.0) % Plt Count 282 D (140-440) Thou/mm3 BMP 12/26/24 04:21 Sodium 137 Potassium 2.9 L Chloride 98 Carbon Dioxide 20.9 BUN 29 H Creatinine 5.4 H* Glucose 142 H Calcium 9.5 Liver Function 12/26/24 Range/Units 04:21 Total Bilirubin 0.8 (0.3-1.2) mg/dL Direct Bilirubin 0.4 H (0.0-0.3) mg/dL AST 58 H (0-34) U/L ALT 75 H (10-49) U/L Alkaline Phosphatase 304 H (46-116) U/L Albumin 4.7 (3.5-5.0) gm/dL Quality Measures Quality Measures VTE prophylaxis Medications Home Medications and Allergies Home Medications ?Medication ?Instructions ?Recorded ?Confirmed ?Type amlodipine 5 mg tablet 5 mg PO DAILY 09/20/2412/26 History lisinopril 40 mg tablet 40 mg PO QDAY 11/15/2412/26 History albuterol sulfate 90 mcg/actuation 1 inh inhalation BI D PRN 12/26/24 12/26/24 History aerosol inhaler bronchospasm baclofen 10 mg tablet 10 mg PO Q8H PRN muscle spas m 12/26/24 12/26/24 History diclofenac sodium 1 % topical gel 2 g topical QDAY 12/26/24 History ibuprofen 600 mg tablet 600 mg PO TID 12/26/2412/26 History Allergies Allergy/AdvReac Type Severity Reaction Status Date / Time No Known Allergies Allergy Verified 12/17/24 08:22 Visit Medications Heparin Sodium (Porcine) (Heparin Sod Inj 5000 Unit/Ml Vial) 5,000 unit SC Q12HR ROYER Stop: 01/09/25 20:59 Hydromorphone HCl (Hydromorphone Inj 2 Mg/Ml Vial) 2 mg IVP Q4HR PRN PRN Reason: PAIN Stop: 12/31/24 11:53 Ondansetron HCl (Ondansetron Inj 2 Mg/Ml Inj 2 Ml) 4 mg IVP Q6H PRN; Protocol PRN Reason: NAUSEA OR VOMITING Stop: 01/25/25 10:18 Pantoprazole Sodium (Pantoprazole Inj 40 Mg Vial) 40 mg IVP QDAY ROYER Stop: 01/26/25 08:59 Discontinued Medications Hydromorphone HCl (Hydromorphone Inj 2 Mg/Ml Vial) 1 mg IVP X1 ONE Stop: 12/26/24 04:12 Last Admin: 12/26/24 04:39 Dose: 1 mg Hydromorphone HCl (Hydromorphone Inj 2 Mg/Ml Vial) 2 mg IVP X1 ONE Stop: 12/26/24 11:55 Last Admin: 12/26/24 12:15 Dose: 2 mg Sodium Chloride (Ns) 1,000 mls @ 999 mls/hr IV .Q1H1M ONE Stop: 12/26/24 05:11 Last Infusion: 12/26/24 07:00 Dose: Infused Potassium Chloride (Kcl Ivpb) 10 meq in 100 mls @ 100 mls/hr IV Q1H ROYER Stop: 12/26/24 11:53 Last Admin: 12/26/24 12:16 Dose: 100 mls/hr Sodium Chloride (Ns) 1,000 mls @ 999 mls/hr IV .Q1H1M ONE Stop: 12/26/24 08:53 Last Infusion: 12/26/24 09:55 Dose: Infused Ketorolac Tromethamine (Ketorolac Inj 30 Mg/Ml Vial) 30 mg IVP X1 ONE Stop: 12/26/24 04:12 Last Admin: 12/26/24 04:38 Dose: 30 mg Lorazepam (Lorazepam 2 Mg/Ml Vial) 0.5 mg IVP X1 ONE Stop: 12/26/24 07:58 Last Admin: 12/26/24 08:20 Dose: 0.5 mg Ondansetron HCl (Ondansetron Inj 2 Mg/Ml Inj 2 Ml) 4 mg IVP X1 ONE; Protocol Stop: 12/26/24 04:12 Last Admin: 12/26/24 04:38 Dose: 4 mg Pantoprazole Sodium (Pantoprazole Inj 40 Mg Vial) 40 mg IVP X1 ONE Stop: 12/26/24 07:56 Last Admin: 12/26/24 08:19 Dose: 40 mg Thiamine HCl (Thiamine Inj 100 Mg/Ml Vial 2 Ml) 100 mg IVP X1 ONE Stop: 12/26/24 04:12 Last Admin: 12/26/24 04:38 Dose: 100 mg Assessment & Plan Plan 49-year-old male with history of hypertension, gallstones, arthritis, and chronic alcohol use, presenting with abdominal pain, vomiting, and diarrhea in the setting of recent alcohol cessation, found to have RANDELL, hypokalemia, hepatomegaly with elevated LFTs, and at risk for alcohol withdrawal. #Acute Renal Failure Cr 5.4 on admission (baseline ~0.9), likely due to volume depletion from vomiting/diarrhea in setting of recent alcohol cessation and diuretic use (HCTZ). CT shows left renal scarring concerning for chronic kidney disease. Pertinent labs: Cr 5.4, K 2.9 CT A/P ? scarring of left kidney Plan: * IV fluid resuscitation * Hold lisinopril and HCTZ * Monitor daily BMP, Mg, Phos * Strict I/Os * Renal US if no improvement * Nephrology consult if worsening #Hypokalemia K 2.9 likely due to GI losses and concurrent HCTZ use. Plan: * Replete with IV and/or PO potassium * Monitor BMP Q6?8h * Hold HCTZ * ECG if any symptoms arise #Alcohol Withdrawal Risk 7 days sober after 5 years of heavy use (~1.5 gal vodka/day). Hx of hallucinations; currently stable. No tremors, seizures, or autonomic symptoms. CIWA-Ar <10 (mild) Plan: * Initiated CIWA protocol * PRN lorazepam per scale * Thiamine, folate, multivitamin * Monitor VS, neuro checks * Psych/SEA referral #Hepatomegaly with Elevated LFTs Moderate hepatomegaly on imaging, ALP 304, mild AST/ALT elevation, history of alcohol use ? concerning for alcoholic hepatitis vs steatosis vs early cirrhosis. ALP 304, mild AST/ALT elevation CT A/P and RUQ US: hepatomegaly, prominent pancreatic head ? Plan: * Monitor LFTs, INR, bili * Hepatitis panel, ferritin, ceruloplasmin * Avoid hepatotoxins, tylenol * GI consult if worsening #Abdominal Pain, Vomiting, and Diarrhea Likely multifactorial: alcohol gastritis, volume depletion, possibly viral gastroenteritis. No signs of GI bleed. Lipase and amylase normal. CT A/P ? hepatomegaly, splenomegaly, bladder wall thickening ? Plan: * NPO--> clear liquids as tolerated * Zofran PRN * Monitor symptoms * Consider GI PCR/stool panel if diarrhea persists #Hypertension Chronic HTN, currently off meds due to RANDELL and hypokalemia. ?Plan: * Hold lisinopril and HCTZ * Resume amlodipine if BP persistently >160 * Reassess once euvolemic #Methamphetamine Use (last use 1 month ago) Utox positive, no signs of intoxication currently. Contributing factor to RANDELL possible. ? Plan: * No acute intervention * Document use history * SEA counseling if interested #Health Maintenance Disposition: Admit to medicine service Feeding: NPO --> clear liquids as tolerated DVT prophylaxis: SCDs GI prophylaxis: Pantoprazole Code status: Full code ----- Plan discussed with attending physician Dr. Arroyo and senior resident Dr. Marielos MD PGY-1 Internal Medicine Attending Provider Attestation/Addendum I, Elisabet Arroyo DO, attest that I was physically present for the shipley portions of the service and evaluated the patient with the resident and I reviewed and discussed the case with the resident and agree with the resident's findings and plans of care as documented above Patient is a 49-year-old male with past medical history of hypertension,, chronic alcohol use, arthritis, gallstones who presents to ED with complaint of abdominal pain, nausea and vomiting. He states that he has been retching and has also had diarrhea several times since yesterday morning. Patient states that he has a history of alcohol withdrawals and has quit drinking for the past 7 days. He endorses having abdominal pain, but abdomen is soft on palpation, with some mild guarding. Suspect that the pain is secondary to his frequent emesis. Patient currently does not appear to be in acute alcohol withdrawal. He appears to be disheveled with poor hygiene. He denies any hematemesis, melena or hematochezia. Upon evaluation in the ED, patient was noted to have acute renal failure with a creatinine of 5.4 with baseline of 0.9. Patient does endorse using ibuprofen 3 times a day at 800 mg for chronic back pain, in addition to baclofen use. Suspect that his symptoms may be secondary to acute renal failure versus substance withdrawal. Patient had received Dilaudid prior to my evaluation for his abdominal pain and has been frequently dozing off throughout encounter. CT abdomen pelvis was done in the ED showing moderate hepatomegaly, cirrhotic changes, splenomegaly and bladder wall thickening. Will admit patient to med/telemetry for further workup and medical management of acute renal failure. Will start patient on IV fluids and consult nephrology for further workup of renal failure. 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 Patient noted to take HCTZ at home as well as lisinopril. Will hold off on any nephrotoxic agents at this time.
[2024-12-26 14:24] LABS: Basophils # (Auto) 0.1 Thou/mm3 (0.0-0.2); Basophils % (Auto) 1 % (0-2.5); Eosinophils # (Auto) 0.4 Thou/mm3 (0.0-0.5); Eosinophils % (Auto) 2 % (0-10); Hematocrit 36.6 % (41.0-53.0); Hemoglobin 11.7 g/dL (13.5-16.0); Immature Granulocytes Auto 0.11 Thou/mm3 (0.00-0.00); Lymphocytes # (Auto) 1.3 Thou/mm3 (1.0-4.8); Lymphocytes % (Auto) 7 % (10-50); Mean Corpuscular HGB Conc 32.0 g/dl (31.0-37.0); Mean Corpuscular Hemoglobin 28.8 pg (25.0-35.0); Mean Corpuscular Volume 90 fL (80-100); Monocytes # (Auto) 1.8 Thou/mm3 (0.0-0.8); Monocytes % (Auto) 10 % (0-12); Neutrophils # (Auto) 14.8 Thou/mm3 (1.8-7.7); Neutrophils % (Auto) 80 % (37-80); Nucleated Red Blood Cell # 0.00 Thou/mm3 (0.00-0.00); Nucleated Red Blood Cell % 0 /100 WBC (0); Platelet Count 244 Thou/mm3 (140-440); RDW Standard Deviation 51.1 fL (35.1-43.9); Red Blood Count 4.06 Miln/mm3 (4.50-5.90); White Blood Count 18.5 Thou/mm3 (3.8-10.6)
[2024-12-26] MEDS: METOCLOPRAMIDE INJ 5 MG/ML VIAL 2 ML IVP ×2 (14:26→19:33)
[2024-12-26 14:54] LABS: Alanine Aminotransferase 57 U/L (10-49); Albumin, Serum 4.1 gm/dL (3.5-5.0); Albumin/Globulin Ratio 1.3 (1.2-2.2); Alcohol, Blood Medical < 10.0 mg/dL (0-10.0); Alkaline Phosphatase 244 U/L (46-116); Anion Gap 14 (7-16); Aspartate Amino Transferase 49 U/L (0-34); BUN/Creatinine Ratio 6 Ratio (12-20); Bilirubin,Total 0.9 mg/dL (0.3-1.2); Blood Urea Nitrogen 33 mg/dL (9-23); Calcium 8.4 mg/dL (8.3-10.6); Calcium (Corrected) 8.4 mg/dL (8.5-10.1); Carbon Dioxide 17.5 mMol/L (20.0-31.0); Chloride 105 mMol/L (98-107); Creatinine (Component) 5.7 mg/dL (0.6-1.3); Estimated Creatinine Clearance 19.4 mL/min (>60); Globulin 3.1 gm/dL (2.3-3.5); Glucose 103 mg/dL (74-106); Osmolality,Calculated 279 (275-295); Potassium 3.4 mMol/L (3.4-5.1); Sodium 136 mMol/L (136-145); Total Protein 7.2 gm/dL (5.7-8.2); eGFR 11 See Note
[2024-12-26] MEDS: SODIUM CHLORIDE 0.9% 1000 ML 1,000 ML 90 ML IV (16:00)
--- NOTE | 2024-12-26 18:25 | PC.NURSE ---
pt arrived to unit at this time. Patient is alert and oriented, complaining of 8/10 abdominal pain. Vital signs stable. Pt oriented to unit/room.
[2024-12-26] MEDS: cefTRIAXone 1,000 MG in SODIUM CHLORIDE 0.9% (Popper) 50 ML 100 MG IV (18:40)
[2024-12-26] MEDS: HEPARIN SOD INJ 5000 UNIT/ML VIAL SC (20:07)
[2024-12-27] VITALS (8 sets, daily range): BP systolic 95–126; BP diastolic 55–87; PULSE 65–82; RESP 15–18; TEMP 36.2–36.6; O2SAT 91–100
[2024-12-27] MEDS: METOCLOPRAMIDE INJ 5 MG/ML VIAL 2 ML IVP ×4 (05:03→20:29)
[2024-12-27 06:25] LABS: Collection Type, Urine Clean Catch; Squamous Epithelial Cell,Urine 0 /hpf (0-5)
[2024-12-27 06:29] LABS: Basophils # (Auto) 0.1 Thou/mm3 (0.0-0.2); Basophils % (Auto) 1 % (0-2.5); Eosinophils # (Auto) 0.4 Thou/mm3 (0.0-0.5); Eosinophils % (Auto) 3 % (0-10); Hematocrit 35.0 % (41.0-53.0); Hemoglobin 11.1 g/dL (13.5-16.0); Immature Granulocytes Auto 0.07 Thou/mm3 (0.00-0.00); Lymphocytes # (Auto) 1.3 Thou/mm3 (1.0-4.8); Lymphocytes % (Auto) 11 % (10-50); Mean Corpuscular HGB Conc 31.7 g/dl (31.0-37.0); Mean Corpuscular Hemoglobin 29.1 pg (25.0-35.0); Mean Corpuscular Volume 92 fL (80-100); Monocytes # (Auto) 1.2 Thou/mm3 (0.0-0.8); Monocytes % (Auto) 10 % (0-12); Neutrophils # (Auto) 8.9 Thou/mm3 (1.8-7.7); Neutrophils % (Auto) 75 % (37-80); Nucleated Red Blood Cell # 0.00 Thou/mm3 (0.00-0.00); Nucleated Red Blood Cell % 0 /100 WBC (0); Platelet Count 166 Thou/mm3 (140-440); RDW Standard Deviation 51.7 fL (35.1-43.9); Red Blood Count 3.81 Miln/mm3 (4.50-5.90); White Blood Count 11.9 Thou/mm3 (3.8-10.6)
[2024-12-27 06:37] LABS: Glucose Estimated Average 103 mg/dL (80-131); Hemoglobin A1C 5.2 % Hgb (4.8-6.0)
[2024-12-27 06:45] LABS: INR 1.1 (0.9-1.3); Partial Thromboplastin Time 34.1 Seconds (22.0-36.0); Prothrombin Time 11.9 Seconds (9.0-12.2)
[2024-12-27 07:06] LABS: Bilirubin,Urine Negative (Negative); Blood,Urine 1+ (Negative); Clarity,Urine Clear (Clear/Hazy); Color,Urine Yellow (Lt Yel-Yel); Glucose, Urine Negative (Negative); Hyaline Casts,Urine 3 /hpf (0-1); Ketones,Urine Negative (Negative); Leukocyte Esterase,Urine Negative (Negative); Nitrite,Urine Negative (Negative); PH,Urine 5.5 (5.0-7.0); Protein,Urine 1+ (Neg - Trace); RBC,Urine 1 /hpf (0-3); Specific Gravity,Urine 1.015 (1.001-1.035); Urobilinogen,Urine Negative mg/dL (0.0-1.0); WBC,Urine 3 /hpf (0-5)
[2024-12-27 07:10] LABS: Alanine Aminotransferase 47 U/L (10-49); Albumin, Serum 3.6 gm/dL (3.5-5.0); Albumin/Globulin Ratio 1.2 (1.2-2.2); Alkaline Phosphatase 213 U/L (46-116); Amylase 80 U/L (30-118); Anion Gap 15 (7-16); Aspartate Amino Transferase 48 U/L (0-34); BUN/Creatinine Ratio 7 Ratio (12-20); Bilirubin,Direct 0.4 mg/dL (0.0-0.3); Bilirubin,Total 0.8 mg/dL (0.3-1.2); Blood Urea Nitrogen 38 mg/dL (9-23); Calcium 7.9 mg/dL (8.3-10.6); Calcium (Corrected) 8.2 mg/dL (8.5-10.1); Carbon Dioxide 18.6 mMol/L (20.0-31.0); Cardiac Risk Estimate 3.7 RATIO (4.0-6.7); Chloride 103 mMol/L (98-107); Cholesterol 154 mg/dL (132-200); Creatinine (Component) 5.5 mg/dL (0.6-1.3); Estimated Creatinine Clearance 20.2 mL/min (>60); Globulin 2.9 gm/dL (2.3-3.5); Glucose 65 mg/dL (74-106); HDL Cholesterol 42 mg/dL (40-60); LDL Cholesterol,Calculated 84 mg/dL (0-130); Lipase 39 U/L (12-53); Magnesium 2.0 mg/dL (1.6-2.6); Osmolality,Calculated 280 (275-295); Phosphorous 6.3 mg/dL (2.4-5.1); Potassium 3.6 mMol/L (3.4-5.1); Sodium 137 mMol/L (136-145); Total Protein 6.5 gm/dL (5.7-8.2); Triglycerides 141 mg/dL (30-150); eGFR 12 See Note
[2024-12-27 07:33] LABS: Chloride,Urine Random < 20.0 mMol/L (55.0-125.0); Creatinine,Random Urine 166 mg/dL (30-125); Potassium,Urine Random 27 mMol/L (12-62); Protein Total, Random Urine 118 mg/dL (1-14); Sodium,Urine Random 47.9 mMol/L (20.0-110.0)
--- NOTE | 2024-12-27 08:09 | XR_ITS ---
Examination: Nuclear medicine renal flow and function, multiple studies Date and time: December 27, 2024 1511 hours INDICATIONS: Alcohol abuse history, abdominal pain vomiting diarrhea lower abdominal pain this week, renal insufficiency on laboratory examination today TECHNIQUE AND FINDINGS: Intravenous administration 10.8 mCi technetium 99m MAG3 with flow and function curves generated to 60 minutes Normal flow and function right kidney Flow to the left kidney 30% of normal with significantly impaired left renal function IMPRESSION: Significantly impaired left renal function
[2024-12-27] MEDS: cefTRIAXone 1,000 MG in SODIUM CHLORIDE 0.9% (Popper) 50 ML 100 MG IV (08:15)
[2024-12-27] MEDS: HEPARIN SOD INJ 5000 UNIT/ML VIAL SC ×2 (08:15→20:32)
[2024-12-27 09:43] LABS: Creatine Kinase 155 U/L (34-171)
[2024-12-27] MEDS: CALCIUM CARBONATE 600 MG TABLET PO (09:57)
[2024-12-27] MEDS: CITRIC ACID/SODIUM CITR 15 ML UDC (BICITRA) 30 ML PO ×2 (09:57→20:28)
[2024-12-27] MEDS: SODIUM CHLORIDE 0.9% 1000 ML 1,000 ML 125 ML IV (09:58)
--- NOTE | 2024-12-27 10:05 | PC.SS ---
Patient Anthony Mauro is a 49Year old male admitted for N/V Abdominal Pain. SS met with patient at bedside to discuss discharge plan and verify demographic information. Patient reports he lives at home with his family, patient reports his daughter, Milan Mauro is his surrogate decision maker, [phone]. Patient reports he does not utilize any source of DME to assist with ambulation. Patient is able to complete all ADL's independently. Choice of pharmacy is [facility]. At time of discharge patient's family will provide transportation home Next of kin: Daughter, Milan Joel [phone] Discharge Plan: Home
--- NOTE | 2024-12-27 10:48 | PD.RESPRO ---
Documentation for date of: 12/27/24 Subjective Subjective Interval history: Anthony Mauro is a 49yo male with PMHx of HTN, cholelithiasis, BIBA from home here with abdominal pain, vomiting, and diarrhea. Patient stopped drinking alcohol 6 days ago and the symptoms started and progressively getting worse. Patient has recently been at the hospital for alcohol use/intoxication multiple times throughout the last few months. No hematemesis or coffee-ground emesis. No rectal bleeding or tarry stools. No seizures. No shaking. No hallucinations. No other complaints. ED course Patient was given IV fluids, Zofran, Thiamine, Toradol, Dilaudid. Notable labs include WBC 23.1, K 2.9, A-Gap 18, BUN 29, Cr 5.4, eGFR 12, AST 58, ALT 75, Alk Jose 304. CT AP showed moderate heptomegaly (primary hepatocellular vs cirrhosis), urinary bladder wall thickening, significatn L renal scarring. Gall Bladder US showed Normal CBD. Patient is being consulted to nephrology for RANDELL. Patient currently states he is feeling much better right now and is sitting up at the foot of the bed. Patient states he no longer has abdominal pain or nausea. States he continues to have a little bit of diarrhea that he described as dark colored, but did not notice any blood. States he has been able to make urine. Patient denies having any fever, headache, chest pain, shortness of breath, abdominal pain, nausea, vomiting, dysuria. Notable labs include WBC 18.5, K 3.4, BUN 33, Cr 5.7, eGFR 11, AST 49, ALT 57, Alk Phos 244. Renal Ultrasound showed no hydronephrosis or renal calculi. 12/27/2024 No acute events overnight. Patient has been seen and examined. Patient may need dialysis tomorrow if no improvement in kidney function. Patient is resting in bed, endorses some abdominal pain currently that is better than yesterday. Patient continues to make urine. Patient denies having any fever, chest pain, shortness of breath. Patient is on maintenance IV fluids. Patient's Cr 5.5 (5.7 previous day). Exam Vital Signs Temp Pulse Resp BP Pulse Ox O2 Del Method 97.1 F 65 17 112/56 L 94 L Room Air 12/27/24 07:40 12/27/24 08:00 12/27/24 07:40 12/27/24 07:40 12/27/24 07:40 12/27/24 07:40 Narrative Exam Gen: alert and oriented x3, NAD, vitals reviewed Head/Neck: NCAT; trachea appears midline, no gross LAD ENT: EOMI grossly, anicteric sclerae; MMM Resp: normal respiratory effort, symmetric chest rise CV: RRR, no murmurs heard; extremities well perfused GI: non-distended; not tender to palpation, bowel sounds heard Ext: no clubbing, cyanosis or edema Skin: no new rash or lesions on limited visual exam Neuro/MSK: moves all extremities Psych: normal mood; appropriate affect Objective Labs 12/29/24 04:12 12/29/24 04:12 Labs: Laboratory Results - last 24 hr 12/26/24 12/26/24 12/27/24 04:21 13:57 04:12 WBC 18.5 H RBC 4.06 L Hgb 11.7 L Hct 36.6 L MCV 90 MCH 28.8 MCHC 32.0 RDW Std Deviation 51.1 H Plt Count 244 D Neut % (Auto) 80 Lymph % (Auto) 7 L [place] % (Auto) 10 Eos % (Auto) 2 Baso % (Auto) 1 Neut # (Auto) 14.8 H Lymph # (Auto) 1.3 [place] # (Auto) 1.8 H Eos # (Auto) 0.4 Baso # (Auto) 0.1 Immature Gran # (Auto) 0.11 H Absolute Nucleated RBC 0.00 Immature Gran % 1 H Nucleated RBC % 0 PT INR APTT Sodium 136 Potassium 3.4 D Chloride 105 Carbon Dioxide 17.5 L Anion Gap 14 BUN 33 H Creatinine 5.7 H* Estim Creat Clear Calc 19.4 L eGFR 11 L* BUN/Creatinine Ratio 6 L Glucose [address] Glu mg/dL Hemoglobin A1c Calculated Osmolality 279 Calcium 8.4 Corrected Calcium 8.4 L Phosphorus Magnesium Total Bilirubin 0.9 Direct Bilirubin AST 49 H ALT 57 H Alkaline Phosphatase 244 H D Total Creatine Kinase Total Protein 7.2 Albumin 4.1 D Globulin 3.1 Albumin/Globulin Ratio 1.3 Triglycerides Cholesterol LDL Cholesterol, Calc HDL Cholesterol Cholesterol/HDL Ratio Amylase Lipase Ur Collection Type Clean Catch Urine Color Yellow Urine Clarity Clear Urine pH 5.5 Ur Specific [employer] [place] 1.015 Urine Protein 1+ A Urine Glucose (UA) Negative Urine Ketones Negative Urine Blood 1+ A Urine Nitrite Negative Urine Bilirubin Negative Urine Urobilinogen (Auto) Negative Ur Leukocyte Esterase Negative Urine RBC 1 Urine WBC 3 Ur Squamous Epith Cells 0 Urine Bacteria None Hyaline Casts 3 H Ur Random Creatinine 166 H U Random Total Protein 118 H Ur Random Sodium 47.9 Ur Random Potassium 27 Ur Random Chloride < 20.0 L Ethyl Alcohol < 10.0 Hepatitis A IgM Ab Non Reactive Hep Bs Antigen Non Reactive Hep B Core IgM Ab Non Reactive Hepatitis C Antibody Non Reactive 12/27/24 04:27 WBC 11.9 H D RBC 3.81 L Hgb 11.1 L Hct 35.0 L MCV 92 MCH 29.1 MCHC 31.7 RDW Std Deviation 51.7 H Plt Count 166 D Neut % (Auto) 75 Lymph % (Auto) 11 [place] % (Auto) 10 Eos % (Auto) 3 Baso % (Auto) 1 Neut # (Auto) 8.9 H Lymph # (Auto) 1.3 [place] # (Auto) 1.2 H Eos # (Auto) 0.4 Baso # (Auto) 0.1 Immature Gran # (Auto) 0.07 H Absolute Nucleated RBC 0.00 Immature Gran % 1 H Nucleated RBC % 0 PT 11.9 INR 1.1 APTT 34.1 Sodium 137 Potassium 3.6 Chloride 103 Carbon Dioxide 18.6 L Anion Gap 15 BUN 38 H Creatinine 5.5 H* Estim Creat Clear Calc 20.2 L eGFR 12 L* BUN/Creatinine Ratio 7 L Glucose [address] Glu mg/dL 103 Hemoglobin A1c 5.2 Calculated Osmolality 280 Calcium 7.9 L Corrected Calcium 8.2 L Phosphorus 6.3 H Magnesium 2.0 Total Bilirubin 0.8 Direct Bilirubin 0.4 H AST 48 H ALT 47 Alkaline Phosphatase 213 H D Total Creatine Kinase 155 Total Protein 6.5 Albumin 3.6 D Globulin 2.9 Albumin/Globulin Ratio 1.2 Triglycerides 141 Cholesterol 154 LDL Cholesterol, Calc 84 HDL Cholesterol 42 Cholesterol/HDL Ratio 3.7 L Amylase 80 Lipase 39 Ur Collection Type Urine Color Urine Clarity Urine pH Ur Specific [place] Urine Protein Urine Glucose (UA) Urine Ketones Urine Blood Urine Nitrite Urine Bilirubin Urine Urobilinogen (Auto) Ur Leukocyte Esterase Urine RBC Urine WBC Ur Squamous Epith Cells Urine Bacteria Hyaline Casts Ur Random Creatinine U Random Total Protein Ur Random Sodium Ur Random Potassium Ur Random Chloride Ethyl Alcohol Hepatitis A IgM Ab Hep Bs Antigen Hep B Core IgM Ab Hepatitis C Antibody Quality Measures Quality Measures VTE prophylaxis Assessment & Plan Assessment Current Active Medications: Generic Name Dose Route Start Last Admin Trade Name Cruz PRN Reason Stop Dose Admin Calcium Carbonate 600 mg 12/27/24 09:00 12/27/24 09:57 Calcium Carbonate 600 Mg Tablet PO 01/26/25 08:59 600 mg QDAY ROYER Administration Citric Acid/Sodium Citrate 30 ml 12/27/24 09:00 12/27/24 09:57 Citric Acid/Sodium Citr 15 Ml Udc (Bicitra) PO 01/26/25 08:59 30 ml BID ROYER Administration Diazepam 2.5 mg 12/26/24 13:27 Diazepam Inj 5 Mg/Ml Vial 2 Ml IVP 12/31/24 13:26 Q2HR PRN CIWA SCORE 8-13 Diazepam 5 mg 12/26/24 13:27 Diazepam Inj 5 Mg/Ml Vial 2 Ml IVP 12/31/24 13:26 Q2HR PRN CIWA SCORE 14-19 Diazepam 10 mg 12/26/24 13:27 Diazepam Inj 5 Mg/Ml Vial 2 Ml IVP 12/31/24 13:26 Q2HR PRN CIWA SCORE 20-25 Heparin Sodium (Porcine) 5,000 unit 12/26/24 21:00 12/27/24 08:15 Heparin Sod Inj 5000 Unit/Ml Vial SC 01/09/25 20:59 5,000 unit Q12HR ROYER Administration Hydromorphone HCl 1 mg 12/26/24 13:25 12/26/24 18:34 Hydromorphone Inj 2 Mg/Ml Vial IVP 12/31/24 11:53 1 mg Q4HR PRN Administration PAIN Ceftriaxone Sodium 1,000 mg/ 50 mls @ 100 mls/hr 12/26/24 18:45 12/27/24 08:15 Sodium Chloride IV 01/02/25 17:53 100 mls/hr QDAY ROYER Administration Lactated Ringer's 1,000 mls @ 75 mls/hr 12/28/24 10:29 Lactated Ringers IV 01/27/25 10:28 .[id number] ROYER Lorazepam 0.5 mg 12/26/24 13:27 12/26/24 21:38 Lorazepam 0.5 Mg Tablet PO 12/31/24 13:26 0.5 mg Q4HR PRN Administration CIWA Score 2-7 Metoclopramide HCl 5 mg 12/26/24 13:45 12/27/24 08:14 Metoclopramide Inj 5 Mg/Ml Vial 2 Ml IVP 01/25/25 13:44 5 mg Q6H ROYER Administration Protocol Ondansetron HCl 4 mg 12/26/24 10:19 12/26/24 13:19 Ondansetron Inj 2 Mg/Ml Inj 2 Ml IVP 01/25/25 10:18 4 mg Q6H PRN Administration NAUSEA OR VOMITING Protocol Pantoprazole Sodium 40 mg 12/27/24 09:00 12/27/24 08:15 Pantoprazole Inj 40 Mg Vial IVP 01/26/25 08:59 40 mg QDAY ROYER Administration Tamsulosin HCl 0.4 mg 12/27/24 10:30 Tamsulosin Hcl 0.4 Mg Capsule PO 01/26/25 10:29 QDAY ROYER Plan Anthony Mauro is a 49yo male with PMHx of chronic alcohol use, HTN, cholelithiasis, BIBA from home here with abdominal pain, vomiting, and diarrhea after recent voluntary cessation of alcohol. Nephrology consulted for management of RANDELL. #RANDELL Likely pre-renal due to poor oral intake and dehydration. History shows days of poor intake with vomiting/diarrhea. Patient's Cr initially 5.4 (baseline ~1.0). Cr currently still elevated 5.5. Patient has had 2+ L IV fluid intake. CT AP showed Significant scarring left kidney. Renal US showed No hydronephrosis or renal calculi. - ordered renal nuclear scan, f/u - will consider HD if no improvement - started bicitra 30 ml po bid - continuing maintenance IV fluids - ck ordered, f/u - monitor chemistry - renally dose medications #Hypokalemia #Alcohol Withdrawal Risk #Hepatomegaly with Elevated LFTs #Abdominal Pain, Vomiting, and Diarrhea #Hypertension #Methamphetamine Use (last use 1 month ago) -above managed by primary team Thank you for allowing us to take part in the care of Mr. Mauro Plan of care discussed with attending, Dr. Gi Petersen MD PGY-1 Attending Provider Attestation/Addendum Patient seen and examined with resident physician Dr. Petersen. Note reviewed, agree with findings and recommendations with few changes made. RANDELL-prerenal azotemia with decreased p.o. intake and abdominal discomfort. Currently he seems to be slightly better. Patient seen in the medical floor. Renal ultrasound showed no hydronephrosis. Despite azotemia-clinically patient seems to be okay. No need for dialysis. Encouraged p.o. intake and continue with fluids.
[2024-12-27] MEDS: TAMSULOSIN HCL 0.4 MG CAPSULE PO (11:20)
[2024-12-27] MEDS: HYDROmorphone INJ 2 MG/ML VIAL 1 MG IVP ×2 (14:01→19:17)
--- NOTE | 2024-12-27 14:22 | PC.SS ---
SS follow up note; Nephrology rec's pending. Patient will discharge home when medically cleared.
--- NOTE | 2024-12-27 16:30 | ESPR_ITS ---
<Statement entered by Harshil Lee MD - 12/27/24 18:36> Patient seen and examined at bedside. I discussed and supervised with the undergraduate internship physician who took care of this patient. I personally saw and examined the patient. I agree with most of the assessment and plan. Patient doing well. NM scan showed significantly impaired left renal function. Continuing IVF following nephro recs. Empiric rocephin, UCx pending. Started Bicitra for NAGMA, likely due to diarrhea. Plan of care discussed with attending Dr. Arroyo. Harshil Lee MD PGY-2 Documentation for date of: 12/27/24 Subjective Subjective Interval history: Patient seen and examined at bedside. He reports improvement compared to yesterday. No nausea or vomiting today. He had one episode of loose diarrhea this morning. Abdominal pain persists but is less severe than yesterday. He is tolerating the clear liquid diet and feels confident he can advance to a full diet. Denies urinary symptoms, denies any signs of alcohol withdrawal including hallucinations, tremors, or anxiety. Endorses lightheadedness on standing. Denies chest pain, shortness of breath, palpitations, numbness, or tingling. Reports some mild muscle cramping. Denies fever or chills. Exam Vital Signs Temp Pulse Resp BP Pulse Ox O2 Del Method 97.4 F 73 18 126/87 H 96 Room Air 12/27/24 12:00 12/27/24 16:25 12/27/24 12:00 12/27/24 12:00 12/27/24 12:00 12/27/24 12:00 Narrative Exam General: Alert, oriented, mild distress from pain HEENT: Normocephalic, atraumatic. Heart: Regular rate and rhythm, no murmurs. Lungs: Clear to auscultation with no wheezing or crackles. Abdomen: mild tenderness to palpation in epigastric and lower abdomen; no rebound, guarding, distension, ascites, jaundice, or bruising Extremities: No edema Neuro: Alert and oriented ?3, no tremors or hallucinations, speech clear, no focal deficits, CN II?XII grossly intact, strength 5/5, no signs of withdrawal. Objective Labs 12/28/24 04:31 12/28/24 04:31 Labs: Laboratory Results - last 24 hr 12/27/24 12/27/24 04:12 04:27 WBC 11.9 H D RBC 3.81 L Hgb 11.1 L Hct 35.0 L MCV 92 MCH 29.1 MCHC 31.7 RDW Std Deviation 51.7 H Plt Count 166 D Neut % (Auto) 75 Lymph % (Auto) 11 [place] % (Auto) 10 Eos % (Auto) 3 Baso % (Auto) 1 Neut # (Auto) 8.9 H Lymph # (Auto) 1.3 [place] # (Auto) 1.2 H Eos # (Auto) 0.4 Baso # (Auto) 0.1 Immature Gran # (Auto) 0.07 H Absolute Nucleated RBC 0.00 Immature Gran % 1 H Nucleated RBC % 0 PT 11.9 INR 1.1 APTT 34.1 Sodium 137 Potassium 3.6 Chloride 103 Carbon Dioxide 18.6 L Anion Gap 15 BUN 38 H Creatinine 5.5 H* Estim Creat Clear Calc 20.2 L eGFR 12 L* BUN/Creatinine Ratio 7 L Glucose [address] Glu mg/dL 103 Hemoglobin A1c 5.2 Calculated Osmolality 280 Calcium 7.9 L Corrected Calcium 8.2 L Phosphorus 6.3 H Magnesium 2.0 Total Bilirubin 0.8 Direct Bilirubin 0.4 H AST 48 H ALT 47 Alkaline Phosphatase 213 H D Total Creatine Kinase 155 Total Protein 6.5 Albumin 3.6 D Globulin 2.9 Albumin/Globulin Ratio 1.2 Triglycerides 141 Cholesterol 154 LDL Cholesterol, Calc 84 HDL Cholesterol 42 Cholesterol/HDL Ratio 3.7 L Amylase 80 Lipase 39 Ur Collection Type Clean Catch Urine Color Yellow Urine Clarity Clear Urine pH 5.5 Ur Specific [place] 1.015 Urine Protein 1+ A Urine Glucose (UA) Negative Urine Ketones Negative Urine Blood 1+ A Urine Nitrite Negative Urine Bilirubin Negative Urine Urobilinogen (Auto) Negative Ur Leukocyte Esterase Negative Urine RBC 1 Urine WBC 3 Ur Squamous Epith Cells 0 Urine Bacteria None Hyaline Casts 3 H Ur Random Creatinine 166 H U Random Total Protein 118 H Ur Random Sodium 47.9 Ur Random Potassium 27 Ur Random Chloride < 20.0 L Quality Measures Quality Measures VTE prophylaxis Assessment & Plan Assessment Current Active Medications: Generic Name Dose Route Start Last Admin Trade Name Freq PRN Reason Stop Dose Admin Calcium Carbonate 600 mg 12/27/24 09:00 12/27/24 09:57 Calcium Carbonate 600 Mg Tablet PO 01/26/25 08:59 600 mg QDAY ROYER Administration Citric Acid/Sodium Citrate 30 ml 12/27/24 09:00 12/27/24 09:57 Citric Acid/Sodium Citr 15 Ml Udc (Bicitra) PO 01/26/25 08:59 30 ml BID ROYER Administration Diazepam 2.5 mg 12/26/24 13:27 Diazepam Inj 5 Mg/Ml Vial 2 Ml IVP 12/31/24 13:26 Q2HR PRN CIWA SCORE 8-13 Diazepam 5 mg 12/26/24 13:27 Diazepam Inj 5 Mg/Ml Vial 2 Ml IVP 12/31/24 13:26 Q2HR PRN CIWA SCORE 14-19 Diazepam 10 mg 12/26/24 13:27 Diazepam Inj 5 Mg/Ml Vial 2 Ml IVP 12/31/24 13:26 Q2HR PRN CIWA SCORE 20-25 Heparin Sodium (Porcine) 5,000 unit 12/26/24 21:00 12/27/24 08:15 Heparin Sod Inj 5000 Unit/Ml Vial SC 01/09/25 20:59 5,000 unit Q12HR ROYER Administration Hydromorphone HCl 1 mg 12/26/24 13:25 12/27/24 14:01 Hydromorphone Inj 2 Mg/Ml Vial IVP 12/31/24 11:53 1 mg Q4HR PRN Administration PAIN Ceftriaxone Sodium 1,000 mg/ 50 mls @ 100 mls/hr 12/26/24 18:45 12/27/24 08:15 Sodium Chloride IV 01/02/25 17:53 100 mls/hr QDAY ROYER Administration Lactated Ringer's 1,000 mls @ 75 mls/hr 12/28/24 10:29 Lactated Ringers IV 01/27/25 10:28 .[id number] ROYER Lorazepam 0.5 mg 12/26/24 13:27 12/26/24 21:38 Lorazepam 0.5 Mg Tablet PO 12/31/24 13:26 0.5 mg Q4HR PRN Administration CIWA Score 2-7 Metoclopramide HCl 5 mg 12/26/24 13:45 12/27/24 14:01 Metoclopramide Inj 5 Mg/Ml Vial 2 Ml IVP 01/25/25 13:44 5 mg Q6H ROYER Administration Protocol Ondansetron HCl 4 mg 12/26/24 10:19 12/26/24 13:19 Ondansetron Inj 2 Mg/Ml Inj 2 Ml IVP 01/25/25 10:18 4 mg Q6H PRN Administration NAUSEA OR VOMITING Protocol Pantoprazole Sodium 40 mg 12/27/24 09:00 12/27/24 08:15 Pantoprazole Inj 40 Mg Vial IVP 01/26/25 08:59 40 mg QDAY ROYER Administration Tamsulosin HCl 0.4 mg 12/27/24 10:30 12/27/24 11:20 Tamsulosin Hcl 0.4 Mg Capsule PO 01/26/25 10:29 0.4 mg QDAY ROYER Administration Plan 49-year-old male with history of hypertension, gallstones, arthritis, and chronic alcohol use, presenting with abdominal pain, vomiting, and diarrhea in the setting of recent alcohol cessation, found to have RANDELL, hypokalemia, hepatomegaly with elevated LFTs, and at risk for alcohol withdrawal. #Acute Kidney Injury (ATN vs pre-renal) Cr has improved slightly from 5.7 --> 5.5. Patient has history of NSAID and lisinopril use, volume depletion from GI losses, and meth use. Nephrology involved; NM renal scan pending. Urine output remains adequate. CT A/P ? scarring of left kidney Plan: * Continue IV fluids * Hold nephrotoxic agents (lisinopril, HCTZ, NSAIDs) * Await NM renal scan * Monitor BMP, Mg, Phos daily * Monitor UOP and symptoms #Non-Anion Gap Metabolic Acidosis (NAGMA) CO2 remains low (18.6), AG = 15 --> consistent with NAGMA, likely due to GI bicarbonate losses (diarrhea). Plan: * Continue Bicitra * Monitor BMP daily * Monitor diarrhea and consider stool workup if persistent #Cystitis (radiographic + leukocytosis) CT A/P showed bladder wall thickening; WBC trended down from 23 --> 11.9. UA showed blood, but no RBCs. CK ordered. Plan: * Continue Rocephin * Monitor clinical status and leukocytosis * Reassess need for antibiotics based on culture/CK #Hypokalemia (Resolved) K 3.6 from 2.9 which was likely due to GI losses and concurrent HCTZ use. Plan: * Repleted * Will continue to monitor * Hold HCTZ #Alcohol Withdrawal Risk 8 days sober after 5 years of heavy use (~1.5 gal vodka/day). Hx of hallucinations; currently stable. No tremors, seizures, or autonomic symptoms. CIWA-Ar <10 (mild) No signs of withdrawal today. Denies hallucinations, tremors, anxiety, or insomnia. CIWA not activated. Plan: * CIWA protocol on standby * Continue thiamine, folate, MVI * Consider psych/SEA referral prior to discharge #Hepatomegaly with Elevated LFTs Mildly elevated AST/ALT, decreasing ALP (244 ? 213), hepatomegaly on imaging. Hepatitis panel negative. No clinical signs of encephalopathy or jaundice. Plan: * Continue monitoring LFTs * GI consult if worsening or if cirrhosis suspected * Consider outpatient Fibroscan #Abdominal Pain Likely multifactorial: alcohol gastritis, volume depletion, possibly viral gastroenteritis. No signs of GI bleed. Lipase and amylase normal. CT A/P ? hepatomegaly, splenomegaly, bladder wall thickening ? Plan: * Continue current pain regimen #Gastroenteritis vs Gastritis Diarrhea continues but less severe. No vomiting today. Patient tolerating clear liquids and requesting diet advancement. Plan: * Advance to renal diet * Zofran PRN * Monitor for recurrence of diarrhea * Consider stool studies if diarrhea persists >48h #Hypertension Chronic HTN, currently off meds due to RANDELL and hypokalemia. ?Plan: * Continue to hold lisinopril/HCTZ * Resume amlodipine if SBP >160 * Reassess need to resume home regimen when Cr improves #Methamphetamine Use (last use 1 month ago) Utox positive, no signs of intoxication currently. Contributing factor to RANDELL possible. ? Plan: * No acute intervention * Document use history * SEA counseling if interested #Health Maintenance Disposition: Admit to medicine service Feeding: Renal diet DVT prophylaxis: SCDs GI prophylaxis: Pantoprazole Code status: Full code ----- Plan discussed with attending physician Dr. Arroyo and senior resident Dr. Marielos MD PGY-1 Internal Medicine Attending Provider Attestation/Addendum Elisabet Muñoz, , attest that I was physically present for the [place] portions of the service and evaluated the patient with the resident and I reviewed and discussed the case with the resident and agree with the resident's findings and plans of care as documented above Patient seen eval this a.m. He reports feeling improved today, denies any nausea or vomiting at this time. He has been tolerating his clear liquid diet. Patient endorses back pain for which he takes ibuprofen 800 mg 3 times a day and baclofen at home. Advised patient to stop use of NSAIDs due to poor renal function which may have been the cause for his acute renal failure. Will continue to monitor urine output. Nuclear scan of renal function pending this evening. Case was discussed with nephrology as well. Patient and family were made aware that if renal function does not improve, he may need dialysis in the future. Will continue to avoid nephrotoxic agents and continue with IV fluid hydration.
[2024-12-28] VITALS (8 sets, daily range): BP systolic 112–165; BP diastolic 75–89; PULSE 62–85; RESP 14–18; TEMP 36.1–36.8; O2SAT 97–99; BMI 30.7
[2024-12-28] MEDS: METOCLOPRAMIDE INJ 5 MG/ML VIAL 2 ML IVP ×4 (02:09→20:44)
[2024-12-28 06:02] LABS: Basophils # (Auto) 0.1 Thou/mm3 (0.0-0.2); Basophils % (Auto) 1 % (0-2.5); Eosinophils # (Auto) 0.3 Thou/mm3 (0.0-0.5); Eosinophils % (Auto) 4 % (0-10); Hematocrit 34.5 % (41.0-53.0); Hemoglobin 10.9 g/dL (13.5-16.0); Immature Granulocytes Auto 0.04 Thou/mm3 (0.00-0.00); Lymphocytes # (Auto) 1.0 Thou/mm3 (1.0-4.8); Lymphocytes % (Auto) 14 % (10-50); Mean Corpuscular HGB Conc 31.6 g/dl (31.0-37.0); Mean Corpuscular Hemoglobin 29.1 pg (25.0-35.0); Mean Corpuscular Volume 92 fL (80-100); Monocytes # (Auto) 0.7 Thou/mm3 (0.0-0.8); Monocytes % (Auto) 10 % (0-12); Neutrophils # (Auto) 4.9 Thou/mm3 (1.8-7.7); Neutrophils % (Auto) 71 % (37-80); Nucleated Red Blood Cell # 0.00 Thou/mm3 (0.00-0.00); Nucleated Red Blood Cell % 0 /100 WBC (0); Platelet Count 158 Thou/mm3 (140-440); RDW Standard Deviation 49.7 fL (35.1-43.9); Red Blood Count 3.74 Miln/mm3 (4.50-5.90); White Blood Count 6.8 Thou/mm3 (3.8-10.6)
[2024-12-28 06:27] LABS: Alanine Aminotransferase 51 U/L (10-49); Albumin, Serum 3.8 gm/dL (3.5-5.0); Albumin/Globulin Ratio 1.5 (1.2-2.2); Alkaline Phosphatase 242 U/L (46-116); Anion Gap 11 (7-16); Aspartate Amino Transferase 70 U/L (0-34); BUN/Creatinine Ratio 13 Ratio (12-20); Bilirubin,Total 0.6 mg/dL (0.3-1.2); Blood Urea Nitrogen 26 mg/dL (9-23); Calcium 8.5 mg/dL (8.3-10.6); Calcium (Corrected) 8.7 mg/dL (8.5-10.1); Carbon Dioxide 23.9 mMol/L (20.0-31.0); Chloride 106 mMol/L (98-107); Creatinine (Component) 2.0 mg/dL (0.6-1.3); Estimated Creatinine Clearance 55.6 mL/min (>60); Globulin 2.6 gm/dL (2.3-3.5); Glucose 89 mg/dL (74-106); Magnesium 1.8 mg/dL (1.6-2.6); Osmolality,Calculated 284 (275-295); Phosphorous 3.9 mg/dL (2.4-5.1); Potassium 3.5 mMol/L (3.4-5.1); Sodium 141 mMol/L (136-145); Total Protein 6.4 gm/dL (5.7-8.2); eGFR 40 See Note
--- NOTE | 2024-12-28 08:03 | ESPR_ITS ---
Documentation for date of: 12/28/24 Subjective Subjective Interval history: Anthony Mauro is a 49yo male with PMHx of HTN, cholelithiasis, BIBA from home here with abdominal pain, vomiting, and diarrhea. Patient stopped drinking alcohol 6 days ago and the symptoms started and progressively getting worse. Patient has recently been at the hospital for alcohol use/intoxication multiple times throughout the last few months. No hematemesis or coffee-ground emesis. No rectal bleeding or tarry stools. No seizures. No shaking. No hallucinations. No other complaints. ED course Patient was given IV fluids, Zofran, Thiamine, Toradol, Dilaudid. Notable labs include WBC 23.1, K 2.9, A-Gap 18, BUN 29, Cr 5.4, eGFR 12, AST 58, ALT 75, Alk Jose 304. CT AP showed moderate heptomegaly (primary hepatocellular vs cirrhosis), urinary bladder wall thickening, significatn L renal scarring. Gall Bladder US showed Normal CBD. Patient is being consulted to nephrology for RANDELL. Patient currently states he is feeling much better right now and is sitting up at the foot of the bed. Patient states he no longer has abdominal pain or nausea. States he continues to have a little bit of diarrhea that he described as dark colored, but did not notice any blood. States he has been able to make urine. Patient denies having any fever, headache, chest pain, shortness of breath, abdominal pain, nausea, vomiting, dysuria. Notable labs include WBC 18.5, K 3.4, BUN 33, Cr 5.7, eGFR 11, AST 49, ALT 57, Alk Phos 244. Renal Ultrasound showed no hydronephrosis or renal calculi. 12/27/2024 No acute events overnight. Patient has been seen and examined. Patient may need dialysis tomorrow if no improvement in kidney function. Patient is resting in bed, endorses some abdominal pain currently that is better than yesterday. Patient continues to make urine. Patient denies having any fever, chest pain, shortness of breath. Patient is on maintenance IV fluids. Patient's Cr 5.5 (5.7 previous day). 12/28/2024 No acute events overnight. Patient has been seen and examined. Patient's labs and vitals reviewed. Kidney function marked improvement. Patient is resting in bed, continues to endorse some abdominal pain. Patient continues to make urine. Patient denies having any fever, chest pain, shortness of breath. Exam Vital Signs Temp Pulse Resp BP Pulse Ox O2 Del Method 97.0 F 62 18 112/75 98 Room Air 12/28/24 04:00 12/28/24 04:24 12/28/24 04:00 12/28/24 04:00 12/28/24 04:00 12/28/24 04:00 Narrative Exam Gen: alert and oriented x3, NAD, vitals reviewed Head/Neck: NCAT; trachea appears midline, no gross LAD ENT: EOMI grossly, anicteric sclerae; MMM Resp: normal respiratory effort, symmetric chest rise CV: RRR, no murmurs heard; extremities well perfused GI: non-distended; tender to palpation, bowel sounds heard Ext: no clubbing, cyanosis or edema Skin: no new rash or lesions on limited visual exam Neuro/MSK: moves all extremities Psych: normal mood; appropriate affect Objective Labs 12/29/24 04:12 12/29/24 04:12 Labs: Laboratory Results - last 24 hr 12/27/24 12/28/24 04:27 04:31 WBC 6.8 D RBC 3.74 L Hgb 10.9 L Hct 34.5 L MCV 92 MCH 29.1 MCHC 31.6 RDW Std Deviation 49.7 H Plt Count 158 Neut % (Auto) 71 Lymph % (Auto) 14 Mck[place]ley % (Auto) 10 Eos % (Auto) 4 Baso % (Auto) 1 Neut # (Auto) 4.9 Lymph # (Auto) 1.0 Mck[place] # (Auto) 0.7 Eos # (Auto) 0.3 Baso # (Auto) 0.1 Immature Gran # (Auto) 0.04 H Absolute Nucleated RBC 0.00 Immature Gran % 1 H Nucleated RBC % 0 Sodium 141 Potassium 3.5 Chloride 106 Carbon Dioxide 23.9 Anion Gap 11 BUN 26 H Creatinine 2.0 H D Estim Creat Clear Calc 55.6 L eGFR 40 L BUN/Creatinine Ratio 13 Glucose 89 Calculated Osmolality 284 Calcium 8.5 Corrected Calcium 8.7 Phosphorus 3.9 Magnesium 1.8 Total Bilirubin 0.6 AST 70 H ALT 51 H Alkaline Phosphatase 242 H D Total Creatine Kinase 155 Total Protein 6.4 Albumin 3.8 Globulin 2.6 Albumin/Globulin Ratio 1.5 Quality Measures Quality Measures VTE prophylaxis Assessment & Plan Assessment Current Active Medications: Generic Name Dose Route Start Last Admin Trade Name Freq PRN Reason Stop Dose Admin Calcium Carbonate 600 mg 12/27/24 09:00 12/27/24 09:57 Calcium Carbonate 600 Mg Tablet PO 01/26/25 08:59 600 mg QDAY ROYER Administration Citric Acid/Sodium Citrate 30 ml 12/27/24 09:00 12/27/24 20:28 Citric Acid/Sodium Citr 15 Ml Udc (Bicitra) PO 01/26/25 08:59 30 ml BID ROYER Administration Diazepam 2.5 mg 12/26/24 13:27 Diazepam Inj 5 Mg/Ml Vial 2 Ml IVP 12/31/24 13:26 Q2HR PRN CIWA SCORE 8-13 Diazepam 5 mg 12/26/24 13:27 Diazepam Inj 5 Mg/Ml Vial 2 Ml IVP 12/31/24 13:26 Q2HR PRN CIWA SCORE 14-19 Diazepam 10 mg 12/26/24 13:27 Diazepam Inj 5 Mg/Ml Vial 2 Ml IVP 12/31/24 13:26 Q2HR PRN CIWA SCORE 20-25 Heparin Sodium (Porcine) 5,000 unit 12/26/24 21:00 12/27/24 20:32 Heparin Sod Inj 5000 Unit/Ml Vial SC 01/09/25 20:59 5,000 unit Q12HR ROYER Administration Hydromorphone HCl 1 mg 12/26/24 13:25 12/27/24 19:17 Hydromorphone Inj 2 Mg/Ml Vial IVP 12/31/24 11:53 1 mg Q4HR PRN Administration PAIN Ceftriaxone Sodium 1,000 mg/ 50 mls @ 100 mls/hr 12/26/24 18:45 12/27/24 08:15 Sodium Chloride IV 01/02/25 17:53 100 mls/hr QDAY ROYER Administration Lactated Ringer's 1,000 mls @ 75 mls/hr 12/28/24 10:29 Lactated Ringers IV 01/27/25 10:28 .[id number] ROYER Lorazepam 0.5 mg 12/26/24 13:27 12/26/24 21:38 Lorazepam 0.5 Mg Tablet PO 12/31/24 13:26 0.5 mg Q4HR PRN Administration CIWA Score 2-7 Metoclopramide HCl 5 mg 12/26/24 13:45 12/28/24 02:09 Metoclopramide Inj 5 Mg/Ml Vial 2 Ml IVP 01/25/25 13:44 5 mg Q6H ROYER Administration Protocol Ondansetron HCl 4 mg 12/26/24 10:19 12/26/24 13:19 Ondansetron Inj 2 Mg/Ml Inj 2 Ml IVP 01/25/25 10:18 4 mg Q6H PRN Administration NAUSEA OR VOMITING Protocol Pantoprazole Sodium 40 mg 12/27/24 09:00 12/27/24 08:15 Pantoprazole Inj 40 Mg Vial IVP 01/26/25 08:59 40 mg QDAY ROYER Administration Tamsulosin HCl 0.4 mg 12/27/24 10:30 12/27/24 11:20 Tamsulosin Hcl 0.4 Mg Capsule PO 01/26/25 10:29 0.4 mg QDAY ROYER Administration Plan Anthony Mauro is a 49yo male with PMHx of chronic alcohol use, HTN, cholelithiasis, BIBA from home here with abdominal pain, vomiting, and diarrhea after recent voluntary cessation of alcohol. Nephrology consulted for management of RANDELL. #RANDELL Likely pre-renal due to poor oral intake and dehydration. History shows days of poor intake with vomiting/diarrhea. Patient's Cr initially 5.4 (baseline ~1.0). Cr improved to 2.0 (12/28). CT AP showed Significant scarring left kidney. Renal US showed No hydronephrosis or renal calculi. Renal NM scan: Significantly impaired left renal function - continue bicitra 30 ml po bid - continuing maintenance IV fluids - ctm chemistry - renally dose medications #Hypokalemia #Alcohol Withdrawal Risk #Hepatomegaly with Elevated LFTs #Abdominal Pain, Vomiting, and Diarrhea #Hypertension #Methamphetamine Use (last use 1 month ago) -above managed by primary team Thank you for allowing us to take part in the care of Mr. Mauro Plan of care discussed with attending, Dr. Gi Petersen MD PGY-1 Attending Provider Attestation/Addendum Patient seen and examined with resident physician Dr. Petersen. Note reviewed, agree with findings and recommendations with few changes made. RANDELL-prerenal azotemia with decreased p.o. intake and abdominal discomfort. Currently he seems to be slightly better. Patient seen in the medical floor. Renal ultrasound showed no hydronephrosis. Azotemia improved. Encouraged p.o. intake and continue with fluids. Spoke to primary team-possible discharge tomorrow if stable.
[2024-12-28] MEDS: TAMSULOSIN HCL 0.4 MG CAPSULE PO (09:01)
[2024-12-28] MEDS: CALCIUM CARBONATE 600 MG TABLET PO (09:01)
[2024-12-28] MEDS: HEPARIN SOD INJ 5000 UNIT/ML VIAL SC ×2 (09:01→20:51)
[2024-12-28] MEDS: cefTRIAXone 1,000 MG in SODIUM CHLORIDE 0.9% (Popper) 50 ML 100 MG IV (09:02)
[2024-12-28] MEDS: CITRIC ACID/SODIUM CITR 15 ML UDC (BICITRA) 30 ML PO ×2 (09:25→20:51)
[2024-12-28] MEDS: HYDROmorphone INJ 2 MG/ML VIAL 1 MG IVP ×3 (09:25→21:06)
[2024-12-28] MEDS: Magnesium Sulfate 4 GM Ivpb 4 GM/50 ML BAG IV (09:26)
[2024-12-28] MEDS: RINGERS LACTATED 1000 ML 1,000 ML 75 ML IV ×2 (09:31→23:20)
--- NOTE | 2024-12-28 12:29 | ESPR_ITS ---
Documentation for date of: 12/28/24 Subjective Subjective Interval history: Patient seen and examined at bedside. He denies nausea, vomiting, or diarrhea. No urinary symptoms such as burning or dysuria. He reports ongoing abdominal pain localized to the lower abdomen, though improved compared to prior days. He is tolerating diet well, eating and drinking without issue. He denies lightheadedness, dizziness, muscle cramping, tingling, or spasms. States he feels better overall today. Exam Vital Signs Temp Pulse Resp BP Pulse Ox O2 Del Method 98.2 F 85 14 125/88 H 99 Room Air 12/28/24 08:00 12/28/24 08:00 12/28/24 08:00 12/28/24 08:00 12/28/24 08:00 12/28/24 04:00 Narrative Exam General: Alert, oriented, mild distress from pain HEENT: Normocephalic, atraumatic. Heart: Regular rate and rhythm, no murmurs. Lungs: Clear to auscultation with no wheezing or crackles. Abdomen: mild tenderness to palpation in epigastric and lower abdomen; no rebound, guarding, distension, ascites, jaundice, or bruising Extremities: No edema Neuro: Alert and oriented ?3, no tremors or hallucinations, speech clear, no focal deficits, CN II?XII grossly intact, strength 5/5, no signs of withdrawal. Objective Labs 12/29/24 04:12 12/29/24 04:12 Labs: Laboratory Results - last 24 hr 12/28/24 04:31 WBC 6.8 D RBC 3.74 L Hgb 10.9 L Hct 34.5 L MCV 92 MCH 29.1 MCHC 31.6 RDW Std Deviation 49.7 H Plt Count 158 Neut % (Auto) 71 Lymph % (Auto) 14 [place] % (Auto) 10 Eos % (Auto) 4 Baso % (Auto) 1 Neut # (Auto) 4.9 Lymph # (Auto) 1.0 [place] # (Auto) 0.7 Eos # (Auto) 0.3 Baso # (Auto) 0.1 Immature Gran # (Auto) 0.04 H Absolute Nucleated RBC 0.00 Immature Gran % 1 H Nucleated RBC % 0 Sodium 141 Potassium 3.5 Chloride 106 Carbon Dioxide 23.9 Anion Gap 11 BUN 26 H Creatinine 2.0 H D Estim Creat Clear Calc 55.6 L eGFR 40 L BUN/Creatinine Ratio 13 Glucose 89 Calculated Osmolality 284 Calcium 8.5 Corrected Calcium 8.7 Phosphorus 3.9 Magnesium 1.8 Total Bilirubin 0.6 AST 70 H ALT 51 H Alkaline Phosphatase 242 H D Total Protein 6.4 Albumin 3.8 Globulin 2.6 Albumin/Globulin Ratio 1.5 Quality Measures Quality Measures VTE prophylaxis Assessment & Plan Assessment Current Active Medications: Generic Name Dose Route Start Last Admin Trade Name Freq PRN Reason Stop Dose Admin Calcium Carbonate 600 mg 12/27/24 09:00 12/28/24 09:01 Calcium Carbonate 600 Mg Tablet PO 01/26/25 08:59 600 mg QDAY ROYER Administration Citric Acid/Sodium Citrate 30 ml 12/27/24 09:00 12/28/24 09:25 Citric Acid/Sodium Citr 15 Ml Udc (Bicitra) PO 01/26/25 08:59 30 ml BID ROYER Administration Diazepam 2.5 mg 12/26/24 13:27 Diazepam Inj 5 Mg/Ml Vial 2 Ml IVP 12/31/24 13:26 Q2HR PRN CIWA SCORE 8-13 Diazepam 5 mg 12/26/24 13:27 Diazepam Inj 5 Mg/Ml Vial 2 Ml IVP 12/31/24 13:26 Q2HR PRN CIWA SCORE 14-19 Diazepam 10 mg 12/26/24 13:27 Diazepam Inj 5 Mg/Ml Vial 2 Ml IVP 12/31/24 13:26 Q2HR PRN CIWA SCORE 20-25 Dicyclomine HCl 10 mg 12/28/24 09:57 Dicyclomine 10 Mg Capsule PO 01/27/25 09:56 Q4HR PRN CRAMPS Heparin Sodium (Porcine) 5,000 unit 12/26/24 21:00 12/28/24 09:01 Heparin Sod Inj 5000 Unit/Ml Vial SC 01/09/25 20:59 5,000 unit Q12HR ROYER Administration Hydromorphone HCl 1 mg 12/26/24 13:25 12/28/24 09:25 Hydromorphone Inj 2 Mg/Ml Vial IVP 12/31/24 11:53 1 mg Q4HR PRN Administration PAIN Ceftriaxone Sodium 1,000 mg/ 50 mls @ 100 mls/hr 12/26/24 18:45 12/28/24 09:02 Sodium Chloride IV 01/02/25 17:53 100 mls/hr QDAY ROYER Administration Lactated Ringer's 1,000 mls @ 75 mls/hr 12/28/24 10:29 12/28/24 09:31 Lactated Ringers IV 01/27/25 10:28 75 mls/hr .[id number] ROYER Administration Magnesium Sulfate 4 gm in 50 mls @ 12.5 mls/hr 12/28/24 09:00 12/28/24 09:26 Magnesium Sulfate Ivpb IV 12/28/24 12:59 12.5 mls/hr X1 ONE Administration Lorazepam 0.5 mg 12/28/24 11:47 Lorazepam 0.5 Mg Tablet PO 12/31/24 13:26 Q4HR PRN CIWA Score 2-7 Metoclopramide HCl 5 mg 12/26/24 13:45 12/28/24 09:02 Metoclopramide Inj 5 Mg/Ml Vial 2 Ml IVP 01/25/25 13:44 5 mg Q6H ROYER Administration Protocol Ondansetron HCl 4 mg 12/26/24 10:19 12/26/24 13:19 Ondansetron Inj 2 Mg/Ml Inj 2 Ml IVP 01/25/25 10:18 4 mg Q6H PRN Administration NAUSEA OR VOMITING Protocol Pantoprazole Sodium 40 mg 12/27/24 09:00 12/28/24 09:01 Pantoprazole Inj 40 Mg Vial IVP 01/26/25 08:59 40 mg QDAY ROYER Administration Tamsulosin HCl 0.4 mg 12/27/24 10:30 12/28/24 09:01 Tamsulosin Hcl 0.4 Mg Capsule PO 01/26/25 10:29 0.4 mg QDAY ROYER Administration Plan 49-year-old male with history of HTN, substance use, and alcohol use disorder, now post-acute kidney injury with improving renal function, resolving abdominal symptoms, and stable clinical status. #Acute Kidney Injury (ATN vs pre-renal) Patient has history of NSAID and lisinopril use, volume depletion from GI losses, and meth use. CT A/P ? scarring of left kidney Improving renal function (Cr down to 2.0 from 5.7). NM renal scan shows impaired left renal function with normal right kidney perfusion. Volume status optimized, urine output adequate. Plan: * Continue IV fluids * Hold nephrotoxic agents (lisinopril, HCTZ, NSAIDs) * Monitor BMP, Mg, Phos daily * Await urine culture * Monitor UOP and symptoms #Non-Anion Gap Metabolic Acidosis (NAGMA) CO2 remains low (18.6), AG = 15 --> consistent with NAGMA, likely due to GI bicarbonate losses (diarrhea). Plan: * Continue Bicitra * Monitor BMP daily * Monitor diarrhea and consider stool workup if persistent #Cystitis (radiographic + leukocytosis) CT showed bladder wall thickening; WBC previously elevated but trending down(18.5-->11.19 now 6.8). UA with blood, no RBCs. Awaiting culture. Plan: * Continue Rocephin * Monitor clinical status and leukocytosis * Reassess need for antibiotics based on culture/CK #Alcohol Withdrawal Risk 8 days sober after 5 years of heavy use (~1.5 gal vodka/day). Hx of hallucinations; currently stable. No tremors, seizures, or autonomic symptoms. CIWA-Ar <10 (mild) No signs of withdrawal today. Denies hallucinations, tremors, anxiety, or insomnia. CIWA not activated. Plan: * CIWA protocol on standby * Continue thiamine, folate, MVI * Consider psych/SEA referral prior to discharge #Electrolyte Abnormalities K = 3.5 borderline Mg = 1.8 (low-normal) Phos and Ca normal Plan: * Give 20 mEq PO KCl * Give 4g IV magnesium * Continue daily labs and replete as needed #Impaired Left Renal Function Assessment: NM scan shows 30% function in left kidney, consistent with previous CT findings (scarring). Likely chronic. Plan: * Continue to manage conservatively * Follow renal function closely * No immediate intervention needed #Abdominal Pain (Resolving) Likely multifactorial: alcohol gastritis, volume depletion, possibly viral gastroenteritis. No signs of GI bleed. Lipase and amylase normal. CT A/P ? hepatomegaly, splenomegaly, bladder wall thickening ?Ongoing lower abdominal pain, improved from previous days. No nausea, vomiting, or diarrhea. Plan: * Monitor pain * Continue diet as tolerated * PRN analgesics (avoid NSAIDs) #Gastroenteritis vs Gastritis Diarrhea continues but less severe. No vomiting today. Patient tolerating clear liquids and requesting diet advancement. Plan: * Advance to renal diet * Zofran PRN * Monitor for recurrence of diarrhea * Consider stool studies if diarrhea persists >48h #Hepatomegaly with Elevated LFTs Mildly elevated AST/ALT, decreasing ALP (244 --> 213), hepatomegaly on imaging. Hepatitis panel negative. No clinical signs of encephalopathy or jaundice. Plan: * Continue monitoring LFTs * GI consult if worsening or if cirrhosis suspected * Consider outpatient Fibroscan #Hypertension Chronic HTN, currently off meds due to RANDELL and hypokalemia. ?Plan: * Continue to hold lisinopril/HCTZ * Resume amlodipine if SBP >160 * Reassess need to resume home regimen when Cr improves #Methamphetamine Use (last use 1 month ago) Utox positive, no signs of intoxication currently. Contributing factor to RANDELL possible. ? Plan: * No acute intervention * Document use history * SEA counseling if interested #Health Maintenance Disposition: Admit to medicine service Feeding: Renal diet DVT prophylaxis: SCDs GI prophylaxis: Pantoprazole Code status: Full code ----- Plan discussed with attending physician Dr. Dina Jj MD PGY-1 Internal Medicine Attending Provider Attestation/Addendum Elisabet Muñoz DO, attest that I was physically present for the shipley portions of the service and evaluated the patient with the resident and I reviewed and discussed the case with the resident and agree with the resident's findings and plans of care as documented above Patient seen eval this a.m. patient states that he is feeling improved. He continues to have mild suprapubic pain on palpation. He denies any urinary symptoms otherwise. Patient again counseled regarding nephrotoxic agents that he needs to avoid. No acute events overnight. Case discussed with nephrology. Plan to continue with IV fluid hydration at this time with renal improvement. Anticipate discharge within the next 24 hours if patient remains stable and improving.
[2024-12-28] MEDS: DICYCLOMINE 10 MG CAPSULE PO (23:16)
[2024-12-29] VITALS: BP 139/95; PULSE 62; RESP 15; TEMP 36.1; O2SAT 100
[2024-12-29 00:15] VITALS: PULSE 78
[2024-12-29] MEDS: METOCLOPRAMIDE INJ 5 MG/ML VIAL 2 ML IVP ×3 (02:46→13:13)
[2024-12-29] MEDS: HYDROmorphone INJ 2 MG/ML VIAL 1 MG IVP ×2 (02:56→07:23)
[2024-12-29 04:00] VITALS: BP 131/76; PULSE 71; RESP 17; TEMP 36.6; O2SAT 96
[2024-12-29 04:07] VITALS: PULSE 64
[2024-12-29 05:19] LABS: Basophils # (Auto) 0.1 Thou/mm3 (0.0-0.2); Basophils % (Auto) 1 % (0-2.5); Eosinophils # (Auto) 0.2 Thou/mm3 (0.0-0.5); Eosinophils % (Auto) 3 % (0-10); Hematocrit 34.1 % (41.0-53.0); Hemoglobin 11.0 g/dL (13.5-16.0); Immature Granulocytes Auto 0.03 Thou/mm3 (0.00-0.00); Lymphocytes # (Auto) 0.9 Thou/mm3 (1.0-4.8); Lymphocytes % (Auto) 15 % (10-50); Mean Corpuscular HGB Conc 32.3 g/dl (31.0-37.0); Mean Corpuscular Hemoglobin 29.0 pg (25.0-35.0); Mean Corpuscular Volume 90 fL (80-100); Monocytes # (Auto) 0.5 Thou/mm3 (0.0-0.8); Monocytes % (Auto) 9 % (0-12); Neutrophils # (Auto) 4.3 Thou/mm3 (1.8-7.7); Neutrophils % (Auto) 73 % (37-80); Nucleated Red Blood Cell # 0.00 Thou/mm3 (0.00-0.00); Nucleated Red Blood Cell % 0 /100 WBC (0); Platelet Count 189 Thou/mm3 (140-440); RDW Standard Deviation 48.6 fL (35.1-43.9); Red Blood Count 3.79 Miln/mm3 (4.50-5.90); White Blood Count 6.0 Thou/mm3 (3.8-10.6)
[2024-12-29 06:07] LABS: Alanine Aminotransferase 71 U/L (10-49); Albumin, Serum 3.7 gm/dL (3.5-5.0); Albumin/Globulin Ratio 1.4 (1.2-2.2); Alkaline Phosphatase 293 U/L (46-116); Anion Gap 10 (7-16); Aspartate Amino Transferase 101 U/L (0-34); BUN/Creatinine Ratio 18 Ratio (12-20); Bilirubin,Total 0.6 mg/dL (0.3-1.2); Blood Urea Nitrogen 18 mg/dL (9-23); Calcium 8.9 mg/dL (8.3-10.6); Calcium (Corrected) 9.1 mg/dL (8.5-10.1); Carbon Dioxide 28.3 mMol/L (20.0-31.0); Chloride 106 mMol/L (98-107); Creatinine (Component) 1.0 mg/dL (0.6-1.3); Estimated Creatinine Clearance 109.6 mL/min (>60); Globulin 2.7 gm/dL (2.3-3.5); Glucose 86 mg/dL (74-106); Magnesium 1.6 mg/dL (1.6-2.6); Osmolality,Calculated 287 (275-295); Phosphorous 3.0 mg/dL (2.4-5.1); Potassium 3.7 mMol/L (3.4-5.1); Sodium 144 mMol/L (136-145); Total Protein 6.4 gm/dL (5.7-8.2); eGFR > 60 See Note
--- NOTE | 2024-12-29 07:08 | PD.RESPRO ---
Documentation for date of: 12/29/24 Exam Vital Signs Temp Pulse Resp BP Pulse Ox O2 Del Method 97.8 F 64 17 131/76 H 96 Room Air 12/29/24 04:00 12/29/24 04:07 12/29/24 04:00 12/29/24 04:00 12/29/24 04:00 12/29/24 04:00 Objective Labs 12/29/24 04:12 12/29/24 04:12 Labs: Laboratory Results - last 24 hr 12/29/24 04:12 WBC 6.0 RBC 3.79 L Hgb 11.0 L Hct 34.1 L MCV 90 MCH 29.0 MCHC 32.3 RDW Std Deviation 48.6 H Plt Count 189 D Neut % (Auto) 73 Lymph % (Auto) 15 [place] % (Auto) 9 Eos % (Auto) 3 Baso % (Auto) 1 Neut # (Auto) 4.3 Lymph # (Auto) 0.9 L [place] # (Auto) 0.5 Eos # (Auto) 0.2 Baso # (Auto) 0.1 Immature Gran # (Auto) 0.03 H Absolute Nucleated RBC 0.00 Immature Gran % 1 H Nucleated RBC % 0 Sodium 144 Potassium 3.7 Chloride 106 Carbon Dioxide 28.3 Anion Gap 10 BUN 18 Creatinine 1.0 D Estim Creat Clear Calc 109.6 eGFR > 60 BUN/Creatinine Ratio 18 Glucose 86 Calculated Osmolality 287 Calcium 8.9 Corrected Calcium 9.1 Phosphorus 3.0 Magnesium 1.6 Total Bilirubin 0.6 AST 101 H ALT 71 H Alkaline Phosphatase 293 H D Total Protein 6.4 Albumin 3.7 Globulin 2.7 Albumin/Globulin Ratio 1.4 Quality Measures Quality Measures VTE prophylaxis Assessment & Plan Assessment Current Active Medications: Generic Name Dose Route Start Last Admin Trade Name Cruz PRN Reason Stop Dose Admin Calcium Carbonate 600 mg 12/27/24 09:00 12/28/24 09:01 Calcium Carbonate 600 Mg Tablet PO 01/26/25 08:59 600 mg QDAY ROYER Administration Citric Acid/Sodium Citrate 30 ml 12/27/24 09:00 12/28/24 20:51 Citric Acid/Sodium Citr 15 Ml Udc (Bicitra) PO 01/26/25 08:59 30 ml BID ROYER Administration Diazepam 2.5 mg 12/26/24 13:27 Diazepam Inj 5 Mg/Ml Vial 2 Ml IVP 12/31/24 13:26 Q2HR PRN CIWA SCORE 8-13 Diazepam 5 mg 12/26/24 13:27 Diazepam Inj 5 Mg/Ml Vial 2 Ml IVP 12/31/24 13:26 Q2HR PRN CIWA SCORE 14-19 Diazepam 10 mg 12/26/24 13:27 Diazepam Inj 5 Mg/Ml Vial 2 Ml IVP 12/31/24 13:26 Q2HR PRN CIWA SCORE 20-25 Dicyclomine HCl 10 mg 12/28/24 09:57 12/28/24 23:16 Dicyclomine 10 Mg Capsule PO 01/27/25 09:56 10 mg Q4HR PRN Administration CRAMPS Heparin Sodium (Porcine) 5,000 unit 12/26/24 21:00 12/28/24 20:51 Heparin Sod Inj 5000 Unit/Ml Vial SC 01/09/25 20:59 5,000 unit Q12HR ROYER Administration Hydromorphone HCl 1 mg 12/26/24 13:25 12/29/24 02:56 Hydromorphone Inj 2 Mg/Ml Vial IVP 12/31/24 11:53 1 mg Q4HR PRN Administration PAIN Ceftriaxone Sodium 1,000 mg/ 50 mls @ 100 mls/hr 12/26/24 18:45 12/28/24 09:02 Sodium Chloride IV 01/02/25 17:53 100 mls/hr QDAY ROYER Administration Lactated Ringer's 1,000 mls @ 75 mls/hr 12/28/24 10:29 12/28/24 23:20 Lactated Ringers IV 01/27/25 10:28 75 mls/hr .[id number] ROYER Administration Lorazepam 0.5 mg 12/28/24 11:47 Lorazepam 0.5 Mg Tablet PO 12/31/24 13:26 Q4HR PRN CIWA Score 2-7 Metoclopramide HCl 5 mg 12/26/24 13:45 12/29/24 02:46 Metoclopramide Inj 5 Mg/Ml Vial 2 Ml IVP 01/25/25 13:44 5 mg Q6H ROYER Administration Protocol Ondansetron HCl 4 mg 12/26/24 10:19 12/26/24 13:19 Ondansetron Inj 2 Mg/Ml Inj 2 Ml IVP 01/25/25 10:18 4 mg Q6H PRN Administration NAUSEA OR VOMITING Protocol Pantoprazole Sodium 40 mg 12/27/24 09:00 12/28/24 09:01 Pantoprazole Inj 40 Mg Vial IVP 01/26/25 08:59 40 mg QDAY ROYER Administration Tamsulosin HCl 0.4 mg 12/27/24 10:30 12/28/24 09:01 Tamsulosin Hcl 0.4 Mg Capsule PO 01/26/25 10:29 0.4 mg QDAY ROYER Administration
[2024-12-29 08:00] VITALS: BP 147/88; PULSE 71; RESP 18; TEMP 36.4; O2SAT 97
--- NOTE | 2024-12-29 08:04 | PC.NURSE ---
Dr Angelo in to see pt, from Nephrology standpoint, pt is cleared and can follow up with primary care physician
[2024-12-29] MEDS: CITRIC ACID/SODIUM CITR 15 ML UDC (BICITRA) 30 ML PO (08:14)
[2024-12-29] MEDS: CALCIUM CARBONATE 600 MG TABLET PO (08:14)
[2024-12-29] MEDS: cefTRIAXone 1,000 MG in SODIUM CHLORIDE 0.9% (Popper) 50 ML 100 MG IV (08:14)
[2024-12-29] MEDS: POTASSIUM CHLORIDE 10% 20 MEQ/15 ML UDC PO (08:14)
[2024-12-29] MEDS: HEPARIN SOD INJ 5000 UNIT/ML VIAL SC (08:14)
[2024-12-29] MEDS: TAMSULOSIN HCL 0.4 MG CAPSULE PO (08:14)
--- NOTE | 2024-12-29 09:33 | PD.RESPRO ---
Documentation for date of: 12/29/24 Subjective Subjective Interval history: Anthony Mauro is a 49yo male with PMHx of HTN, cholelithiasis, BIBA from home here with abdominal pain, vomiting, and diarrhea. Patient stopped drinking alcohol 6 days ago and the symptoms started and progressively getting worse. Patient has recently been at the hospital for alcohol use/intoxication multiple times throughout the last few months. No hematemesis or coffee-ground emesis. No rectal bleeding or tarry stools. No seizures. No shaking. No hallucinations. No other complaints. ED course Patient was given IV fluids, Zofran, Thiamine, Toradol, Dilaudid. Notable labs include WBC 23.1, K 2.9, A-Gap 18, BUN 29, Cr 5.4, eGFR 12, AST 58, ALT 75, Alk Jose 304. CT AP showed moderate heptomegaly (primary hepatocellular vs cirrhosis), urinary bladder wall thickening, significatn L renal scarring. Gall Bladder US showed Normal CBD. Patient is being consulted to nephrology for RANDELL. Patient currently states he is feeling much better right now and is sitting up at the foot of the bed. Patient states he no longer has abdominal pain or nausea. States he continues to have a little bit of diarrhea that he described as dark colored, but did not notice any blood. States he has been able to make urine. Patient denies having any fever, headache, chest pain, shortness of breath, abdominal pain, nausea, vomiting, dysuria. Notable labs include WBC 18.5, K 3.4, BUN 33, Cr 5.7, eGFR 11, AST 49, ALT 57, Alk Phos 244. Renal Ultrasound showed no hydronephrosis or renal calculi. 12/27/2024 No acute events overnight. Patient has been seen and examined. Patient may need dialysis tomorrow if no improvement in kidney function. Patient is resting in bed, endorses some abdominal pain currently that is better than yesterday. Patient continues to make urine. Patient denies having any fever, chest pain, shortness of breath. Patient is on maintenance IV fluids. Patient's Cr 5.5 (5.7 previous day). 12/28/2024 No acute events overnight. Patient has been seen and examined. Patient's labs and vitals reviewed. Kidney function marked improvement. Patient is resting in bed, continues to endorse some abdominal pain. Patient continues to make urine. Patient denies having any fever, chest pain, shortness of breath. 12/29/24: Patient seen and examined at bedside. Still having muscular abdominal pain, endorsing abd pain worsens when trying to sit up and on palpation, likely from vomiting. Advised to stop using alcohol and drugs and instructed to not use ibuprofen. Denies chest pain, SOB or fever. Continues to have good urine output. Cr continues to improve 1.0, BUN also improving 18. Exam Vital Signs Temp Pulse Resp BP Pulse Ox O2 Del Method 97.6 F 71 18 147/88 H 97 Room Air 12/29/24 08:00 12/29/24 08:00 12/29/24 08:00 12/29/24 08:00 12/29/24 08:00 12/29/24 08:00 Narrative Exam Gen: alert and oriented x3, NAD, vitals reviewed Head/Neck: NCAT; no gross LAD ENT: EOMI grossly, anicteric sclerae Resp: normal respiratory effort, CTAB CV: RRR, no murmurs heard; extremities well perfused GI: non-distended; tender to palpation, bowel sounds present Ext: no clubbing, cyanosis or edema Skin: no new rash or lesions on limited visual exam Neuro/MSK: moves all extremities Objective Labs 12/29/24 04:12 12/29/24 04:12 Labs: Laboratory Results - last 24 hr 12/29/24 04:12 WBC 6.0 RBC 3.79 L Hgb 11.0 L Hct 34.1 L MCV 90 MCH 29.0 MCHC 32.3 RDW Std Deviation 48.6 H Plt Count 189 D Neut % (Auto) 73 Lymph % (Auto) 15 Metcalfe % (Auto) 9 Eos % (Auto) 3 Baso % (Auto) 1 Neut # (Auto) 4.3 Lymph # (Auto) 0.9 L Metcalfe # (Auto) 0.5 Eos # (Auto) 0.2 Baso # (Auto) 0.1 Immature Gran # (Auto) 0.03 H Absolute Nucleated RBC 0.00 Immature Gran % 1 H Nucleated RBC % 0 Sodium 144 Potassium 3.7 Chloride 106 Carbon Dioxide 28.3 Anion Gap 10 BUN 18 Creatinine 1.0 D Estim Creat Clear Calc 109.6 eGFR > 60 BUN/Creatinine Ratio 18 Glucose 86 Calculated Osmolality 287 Calcium 8.9 Corrected Calcium 9.1 Phosphorus 3.0 Magnesium 1.6 Total Bilirubin 0.6 AST 101 H ALT 71 H Alkaline Phosphatase 293 H D Total Protein 6.4 Albumin 3.7 Globulin 2.7 Albumin/Globulin Ratio 1.4 Quality Measures Quality Measures VTE prophylaxis Assessment & Plan Assessment Current Active Medications: Generic Name Dose Route Start Last Admin Trade Name Freq PRN Reason Stop Dose Admin Calcium Carbonate 600 mg 12/27/24 09:00 12/29/24 08:14 Calcium Carbonate 600 Mg Tablet PO 01/26/25 08:59 600 mg QDAY ROYER Administration Citric Acid/Sodium Citrate 30 ml 12/27/24 09:00 12/29/24 08:14 Citric Acid/Sodium Citr 15 Ml Udc (Bicitra) PO 01/26/25 08:59 30 ml BID ROYER Administration Diazepam 2.5 mg 12/26/24 13:27 Diazepam Inj 5 Mg/Ml Vial 2 Ml IVP 12/31/24 13:26 Q2HR PRN CIWA SCORE 8-13 Diazepam 5 mg 12/26/24 13:27 Diazepam Inj 5 Mg/Ml Vial 2 Ml IVP 12/31/24 13:26 Q2HR PRN CIWA SCORE 14-19 Diazepam 10 mg 12/26/24 13:27 Diazepam Inj 5 Mg/Ml Vial 2 Ml IVP 12/31/24 13:26 Q2HR PRN CIWA SCORE 20-25 Dicyclomine HCl 10 mg 12/28/24 09:57 12/28/24 23:16 Dicyclomine 10 Mg Capsule PO 01/27/25 09:56 10 mg Q4HR PRN Administration CRAMPS Heparin Sodium (Porcine) 5,000 unit 12/26/24 21:00 12/29/24 08:14 Heparin Sod Inj 5000 Unit/Ml Vial SC 01/09/25 20:59 5,000 unit Q12HR ROYER Administration Hydromorphone HCl 1 mg 12/26/24 13:25 12/29/24 07:23 Hydromorphone Inj 2 Mg/Ml Vial IVP 12/31/24 11:53 1 mg Q4HR PRN Administration PAIN Ceftriaxone Sodium 1,000 mg/ 50 mls @ 100 mls/hr 12/26/24 18:45 12/29/24 08:14 Sodium Chloride IV 01/02/25 17:53 100 mls/hr QDAY ROYER Administration Lactated Ringer's 1,000 mls @ 75 mls/hr 12/28/24 10:29 12/28/24 23:20 Lactated Ringers IV 01/27/25 10:28 75 mls/hr .[id number] ROYER Administration Magnesium Sulfate 4 gm in 50 mls @ 12.5 mls/hr 12/29/24 07:37 Magnesium Sulfate Ivpb IV 12/29/24 11:36 X1 ONE Lorazepam 0.5 mg 12/28/24 11:47 Lorazepam 0.5 Mg Tablet PO 12/31/24 13:26 Q4HR PRN CIWA Score 2-7 Metoclopramide HCl 5 mg 12/26/24 13:45 12/29/24 07:23 Metoclopramide Inj 5 Mg/Ml Vial 2 Ml IVP 01/25/25 13:44 5 mg Q6H ROYER Administration Protocol Ondansetron HCl 4 mg 12/26/24 10:19 12/26/24 13:19 Ondansetron Inj 2 Mg/Ml Inj 2 Ml IVP 01/25/25 10:18 4 mg Q6H PRN Administration NAUSEA OR VOMITING Protocol Pantoprazole Sodium 40 mg 12/27/24 09:00 12/29/24 08:14 Pantoprazole Inj 40 Mg Vial IVP 01/26/25 08:59 40 mg QDAY ROYER Administration Tamsulosin HCl 0.4 mg 12/27/24 10:30 12/29/24 08:14 Tamsulosin Hcl 0.4 Mg Capsule PO 01/26/25 10:29 0.4 mg QDAY ROYER Administration Plan Anthony Mauro is a 49yo male with PMHx of chronic alcohol use, HTN, cholelithiasis, BIBA from home here with abdominal pain, vomiting, and diarrhea after recent voluntary cessation of alcohol. Nephrology consulted for management of RANDELL. #RANDELL Likely pre-renal due to poor oral intake and dehydration from vomiting and diarrhea. Patient's Cr initially 5.4 (baseline ~1.0). Cr improving 5.7->5.5->2.0->1.0 CT AP showed Significant scarring left kidney. Renal US showed No hydronephrosis or renal calculi. Renal NM scan: Significantly impaired left renal function - Does not require bicitra at this time - Advised to stop alcohol and drug intake - Avoid ibuprofen - For HTN, decrease lisinopril to 10 mg QD iso kidney function - Encourage increased fluid intake - renally dose medications #Hypokalemia #Alcohol Withdrawal Risk #Hepatomegaly with Elevated LFTs #Abdominal Pain, Vomiting, and Diarrhea #Hypertension #Methamphetamine Use (last use 1 month ago) -above managed by primary team Thank you for allowing us to take part in the care of Mr. Mauro Plan of care discussed with attending, Dr. Gi Hudson, DO Internal Medicine PGY-1 Attending Provider Attestation/Addendum Patient seen and examined with resident physician Dr. Hudson. Note reviewed, agree with findings and recommendations with few changes made. RANDELL-prerenal azotemia with decreased p.o. intake and abdominal discomfort. Currently he seems to be slightly better. Patient seen in the medical floor. Renal ultrasound showed no hydronephrosis. Azotemia improved. Encouraged p.o. intake and continue with fluids. Spoke to primary team-possible discharge today or tomorrow CC:
--- NOTE | 2024-12-29 10:16 | ESDS_ITS ---
<Statement entered by Elisabet Arroyo DO - 12/30/24 08:36> I, Elisabet Arroyo DO, attest that I was physically present for the shipley portions of the service and evaluated the patient with the resident and I reviewed and discussed the case with the resident and agree with the resident's findings and plans of care as documented above <Statement entered by Renato Winkler MD - 12/29/24 13:59> I discussed and supervised with the internal specialist physician who took care of this patient. I personally saw and examined the patient. I agree with most of the assessment and plan. Disclaimer: Despite multiple revisions, due to the dictation software being used, the document bellow may not be free of grammatical errors including phonetic/typographic errors. However, this does not deter from our commitment to providing health care in the patient's best interest in mind. Plan of care discussed with attending Physician Dr. Dina Winkler MD PGY-3 Planned Discharge Date 12/29/24 DS: Providers Provider Date of admission: 12/26/24 10:19 Primary care physician: Jacinto Diaz MD Admitting Provider: Elisabet Arroyo DO Attending Provider on Admission: Elisabet Arroyo DO Consults: 12/26/24 09:29 Consult to Nephrology Stat Comment: Consulting Provider: Aline Angelo Attending Provider on DC: Dr. Arroyo Discharging Provider: RESIDENT Leonila DS: Diagnosis Problem List Completed Was Problem List Reviewed/Reconciled?: Yes Hospital Course Hospital Course Hospital course: Hospital Course Anthony Mauro is a 49yo male with PMHx of HTN, cholelithiasis, BIBA from home who was admitted with complaints of abdominal pain, vomiting, and diarrhea. Patient stopped drinking alcohol 6 days prior to admission and the symptoms started and progressively getting worse. Patient has hx of multiple hospitalizations for etoh/intoxication over the past several months. Infectious workup was negative, UCx negative, pt recieved CTX 1gm QD for 3 days given initial concern for infxn. pt had significant RANDELL (Cr. 5.7, now 1.0) likely prerenal given emesis and GI losses, reolved with fluids. Bicarb given for NAGMA. hepatomegaly noted on CTAP, elevated LFTs, Hepatitis panel negative Abdominal pain is much improved from on intake, no n/v. Blood pressure was managed while inpatient and changes were made to his home medications with concern for kidneys given RANDELL during this hospitalization. Patient stable and medically cleared for discharge Diagnoses #Acute Kidney Injury (ATN vs pre-renal)- resolved #Non-Anion Gap Metabolic Acidosis (NAGMA) #Cystitis (radiographic + leukocytosis)- resolved #Alcohol Withdrawal Risk #Impaired Left Renal Function #Abdominal Pain (Resolving) #Gastroenteritis vs Gastritis #Hepatomegaly with Elevated LFTs #Methamphetamine Use (last use 1 month ago) Discharge instructions Take all home medication as prescribed Take lisinopril 10 mg once a day daily and amlodipine 5 mg once a day daily for hypertension We stopped your hydrochlorothiazide and decrease the dose of lisinopril due to declined kidney function in the hospital Take tamsulosin 0.4 mg at night for BPH Do not take NSAIDs including Aleve, ibuprofen and only use Tylenol for pain as it affects your kidney functions Follow-up with your PCP as outpatient within a week In case of emergency, call 911 or come back to the ED. Case discussed with my senior resident Dr. Winkler Case discussed with my attending Dr. Dina Schwab MD PGY-1 Time Spent with Patient Time attestation: Total time spent providing and/or coordinating discharge services: Time spent: Greater than 30 minutes Exam Vital Signs Temp Pulse Resp BP Pulse Ox O2 Del Method 97.6 F 71 18 147/88 H 97 Room Air 12/29/24 08:00 12/29/24 08:00 12/29/24 08:00 12/29/24 08:00 12/29/24 08:00 12/29/24 08:00 Narrative Exam General: Alert, oriented, mild distress from pain HEENT: Normocephalic, atraumatic. Heart: Regular rate and rhythm, no murmurs. Lungs: Clear to auscultation with no wheezing or crackles. Abdomen: mild tenderness to palpation in epigastric and lower abdomen; no rebound, guarding, distension, ascites, jaundice, or bruising Extremities: No edema Neuro: Alert and oriented ?3, no tremors or hallucinations, speech clear, no focal deficits, CN II?XII grossly intact, strength 5/5, no signs of withdrawal. Discharge Plan Plan Patient Disposition: HOME (Self Care) Care Plan Goals: Take all home medication as prescribed Take lisinopril 10 mg once a day daily and amlodipine 5 mg once a day daily for hypertension We stopped your hydrochlorothiazide and decrease the dose of lisinopril due to declined kidney function in the hospital Take tamsulosin 0.4 mg at night for BPH Do not take NSAIDs including Aleve, ibuprofen and only use Tylenol for pain as it affects your kidney functions Follow-up with your PCP as outpatient within a week In case of emergency, call 911 or come back to the ED Prescriptions/Referrals Prescriptions/Med Rec: New tamsulosin 0.4 mg Capsule 0.4 mg PO QDAY Qty: 30 0RF lisinopril 10 mg tablet 10 mg PO QDAY Qty: 90 0RF Continued amlodipine 5 mg tablet 5 mg PO QDAY MDD 1 Qty: 30 0RF metoclopramide HCl [Reglan] 10 mg tablet 10 mg PO Q6H MDD 4 PRN (Reason: nausea and vomiting) Qty: 60 0RF thiamine HCl (vitamin B1) 100 mg capsule 100 mg PO QDAY Qty: 30 0RF multivitamin Tablet 1 tab PO QDAY Qty: 30 0RF baclofen 10 mg tablet 10 mg PO Q8H PRN (Reason: muscle spasm) diclofenac sodium 1 % gel 2 g TOPICAL QDAY albuterol sulfate 90 mcg/actuation HFA aerosol inhaler 1 inh INHALATION BID PRN (Reason: bronchospasm) Patient Comments: INHALE 2 PUFF INHALED EVERY 6 HOURS NEEDED FOR COUGH Discontinued hydrochlorothiazide 25 mg tablet 25 mg PO QAM Qty: 30 1RF amlodipine 5 mg tablet 5 mg PO DAILY hydrochlorothiazide 25 mg tablet 25 mg PO QAM MDD 1 Qty: 30 0RF lisinopril 20 mg tablet 20 mg PO QDAY MDD 1 Qty: 30 0RF lisinopril 40 mg tablet 40 mg PO QDAY Patient Comments: TAKE 1 TABLET BY MOUTH EVERY DAY chlordiazepoxide HCl 25 mg capsule 25 mg PO PRN PRN (Reason: agitation) Qty: 2 0RF Rx Instructions: Take 1 tablet daily for agitation. Do not exceed 1 tablet in 24 hours. Do not use with alcohol. ibuprofen 600 mg tablet 600 mg PO TID Referrals: Jacinto Diaz MD [Primary Care Provider] - Patient/Caregiver Discharge Instructions Print Language: [place] Stand Alone Forms: Mayuri Award Info., Patient Portal Info Letter Discharge Order Discharge Orders: Discharge (Routine); Ordered 12/29/24 Ordered By: Renato Winkler Quality Discharge Quality Measures VTE prophylaxis
[2024-12-29] MEDS: Magnesium Sulfate 4 GM Ivpb 4 GM/50 ML BAG IV (11:07)
[2024-12-29 12:00] VITALS: BP 147/89; PULSE 64; RESP 18; TEMP 36.6; O2SAT 98
== END 2024-12-29 15:41 | disposition home or self-care (01) | DRG 469 ==
LOC: SERX 11:06 → SERHOLD 11:12 → S3NX 17:54
PROVIDERS: Emergency Medicine; Student in an Organized Health Care Education/Training Program; Admitting Provider Internal Medicine; Emergency Provider Family Medicine; PCP Family Medicine; Visit Provider Internal Medicine
DX: N17.9 Acute kidney failure, unspecified (principal); I10 Essential (primary) hypertension; E87.6 Hypokalemia; R16.0 Hepatomegaly, not elsewhere classified; F15.90 Other stimulant use, unspecified, uncomplicated; E87.20 Acidosis, unspecified; F10.10 Alcohol abuse, uncomplicated; G89.29 Other chronic pain; K29.20 Alcoholic gastritis without bleeding; N30.90 Cystitis, unspecified without hematuria; R16.2 Hepatomegaly with splenomegaly, not elsewhere classified; R79.89 Other specified abnormal findings of blood chemistry
CPT/HCPCS: 36415; 74176; 76705; 76770; 78708; 80053; 80061; 80074; 80307; 80320; 81001; 82150; 82247; 82248; 82436; 82550; 82570; 83036; 83690; 83735; 84100; 84133; 84156; 84300; 85025; 85610; 85730; 87086; 87400; 87811; 93225; 96361; 96365; 96366; 96375; 96376; A9562; J0696; J1171; J1644; J1885; J2060; J2405; J2470; J2765; J3411; J3475; J3480; J7030; J7050; J7120; A9270; G0480

== ENCOUNTER 2025-01-25 16:24 | Inpatient (IN) | payer MEDICAID, SELFPAY ==
[2025-01-25 16:24] VITALS: BMI 29.0
--- NOTE | 2025-01-25 16:54 | EKG_ITS ---
[facility] Test Date: 2025-01-25 Pat Name: CECY PINEDA Department: Room: - Gender: Male [employer]: : 1975 Requested By: Jesus Fraga Order Number: [id number] Reading MD: Jesus Fraga Measurements Intervals [place] Rate: 89 P: 48 CO: 147 QRS: 9 QRSD: 106 T: 47 QT: 372 QTc: 454 Interpretive Statements SINUS RHYTHM INFERIOR MYOCARDIAL INFARCTION , PROBABLY OLD [40+ ms Q WAVE AND/OR ST/T ABNORMALITY IN II/aVF] Compared to ECG 12/17/2024 08:29:22 No significant changes /store/S0/[id number].pdf
--- NOTE | 2025-01-25 16:54 | XR_ITS ---
Examination: AP chest single view TECHNIQUE: AP portable upright chest single view Date and time: January 25, 2025 1700 hours Comparison November 02, 2024 INDICATIONS: Chest pain and shortness of breath beginning 2 days ago. FINDINGS: No significant cardiac enlargement No pneumonia or pulmonary edema. Mild osteopenia. IMPRESSION: No pneumonia or pulmonary edema.
--- NOTE | 2025-01-25 16:57 | PD.EDADULT ---
ED General RME/HPI General Chief complaint: General Adult/Misc Complain Stated complaint: Feels Like Passing Out; Kidneys Time Seen by Provider: 01/25/25 16:39 Arrival date/time: 01/25/25 16:24 RME / HPI RME / HPI narrative: 49-year-old male patient with significant history of chronic alcoholism, hypertension, came in asking for help. According to the patient was admitted here a month ago for acute kidney injury due to alcoholism. Patient told me that he was back to baseline for 1 week, since then has been not feeling well, feeling generalized weakness, low energy, and near syncope. Patient has been having right lower quadrant pain since few days ago about 2 days ago according to him pain getting worse today, severity moderate. Patient did not follow-up with supposed appointment with PCP and not taking any medications also. Patient continues to drink alcohol every day and using meth also. Last alcohol intake was this morning. Denies any fever. No diarrhea no constipation. Related Data Home Medications ?Medication ?Instructions ?Recorded ?Confirmed albuterol sulfate 90 mcg/actuation 1 inh inhalation BID PRN 12/26/24 12/26/24 aerosol inhaler bronchospasm baclofen 10 mg tablet 10 mg PO Q8H PRN muscle spasm 12/26/24 12/26/24 diclofenac sodium 1 % topical gel 2 g topical QDAY 12/26/24 12/26/24 Previous Rx's ?Medication ?Instructions ?Recorded multivitamin 1 tab PO QDAY #30 tabs 11/17/24 thiamine HCl (vitamin B1) 100 mg 100 mg PO QDAY #30 caps 11/17/24 capsule amlodipine 5 mg tablet 5 mg PO QDAY hypertension #30 tabs 12/17/24 metoclopramide HCl 10 mg tablet 10 mg PO Q6H PRN nausea and 12/17/24 (Reglan) vomiting #60 tabs lisinopril 10 mg tablet 10 mg PO QDAY #90 tabs 12/29/24 tamsulosin 0.4 mg capsule 0.4 mg PO QDAY #30 caps 12/29/24 Allergies Allergy/AdvReac Type Severity Reaction Status Date / Time No Known Allergies Allergy Verified 01/25/25 16:27 Review of Systems Review of Systems Narrative Review of Systems: Review of system reviewed and within normal limits except mentioned in HPI ED Exam Narrative Physical exam: VITAL SIGNS: Reviewed. GENERAL APPEARANCE: Alert and interactive, follows commands, no acute distress, HEAD AND FACE: Non-traumatic. ENT: PERRL, pink conjunctivitis, eyelid no trauma, Mucous membrane dry NECK: Supple, nontender, no nuchal rigidity. CHEST: No tenderness, no crepitus, no paradoxical movement, no retractions. LUNGS: Clear, well ventilated, symmetric, no rales, no wheezing, no ronchi, no stridor, good breath sounds bilaterally. HEART: Regular rate, regular rhythm, no murmur, no gallops. ABDOMEN: Soft, positive bowel sounds, nondistended, no guarding, right lower quadrant tenderness, no rebound, no masses, RECTAL: Deferred. GENITAL: Deferred. NEUROLOGICAL: Gross motor function intact sensory function intact, Appropriate for age. MUSCULOSKELETAL: low back nontender, full range of motion. EXTREMITIES: Nontender, full range of motion. SKIN: Color pink, dry, no rash, no lacerations, no abrasions, no contusions. LYMPHATICS: Deferred. Course Quality Measures none Orders Category Date Time Status Bedside COVID-19 Antigen Test NOW Care 01/25/25 20:18 Active COVID-19 Screening Questionnaire NOW Care 01/25/25 19:21 Active COVID-19 Screening Questionnaire NOW Care 01/25/25 21:[address] Screening NOW Care 01/25/25 20:10 Active Decision to Admit X1 Care 01/25/25 21:47 Active EKG (ED ONLY) *Do not use* NOW Care 01/25/25 16:55 Completed NPO NOW Care 01/25/25 21:37 Active Consult to General Surgery Stat Cons 01/25/25 21:34 Ordered Diet NPO (NOW) Diet 01/25/25 21:[address] abdomen pelvis w con Stat Exams 01/25/25 20:10 Completed EKG (ED Only) Stat Exams 01/25/25 16:54 Draft XR chest 1V Stat Exams 01/25/25 16:54 Completed Alcohol, Blood Medical Stat Lab 01/25/25 17:13 Completed CBC Stat Lab 01/25/25 17:13 Completed Comprehensive Metabolic Panel Stat Lab 01/25/25 17:13 Completed Magnesium Stat Lab 01/25/25 17:13 Completed Partial Thromboplastin Time Stat Lab 01/25/25 17:13 Completed Troponin I Stat Lab 01/25/25 17:13 Completed Urinalysis, C/S if Indicated Stat Lab 01/25/25 16:54 Ordered Morphine Inj Med 01/25/25 21:36 Discontinued 4 mg IVP X1 ONE POTASSIUM CHL 10 mEq IVPB [Kcl Ivpb] Med 01/25/25 17:51 Discontinued 10 meq in 100 ml IV X1 Piper/Tazo 3.375 gm Premix [Zosyn] Med 01/25/25 21:32 Active 3.375 gm in 50 ml IV X1 Potassium Chloride [K-Dur] Med 01/25/25 17:50 Discontinued 40 meq PO X1 ONE Potassium Chloride [K-Dur] Med 01/25/25 20:10 Discontinued 40 meq PO X1 ONE Ringers Lactated 1000 ml [Lactated Ringers] 1,000 ml Med 01/25/25 16:54 Discontinued IV 999 mls/hr hydrALAZINE INJ [Apresoline Inj] Med 01/25/25 21:36 Discontinued 10 mg IVP X1 ONE Vital Signs Vital signs: Vital Signs Temperature 98.8 F 01/25/25 17:02 Pulse Rate 96 01/25/25 17:02 Respiratory Rate 16 01/25/25 17:02 Blood Pressure 187/94 H 01/25/25 17:02 Pulse Oximetry (%) 97 01/25/25 17:02 Oxygen Delivery Method Room Air 01/25/25 17:02 Discharge Plan Plan Patient Disposition: Admit Acute Care w/in Hospital Prescriptions/Referrals Prescriptions/Med Rec: No Action amlodipine 5 mg tablet 5 mg PO QDAY MDD 1 Qty: 30 0RF metoclopramide HCl [Reglan] 10 mg tablet 10 mg PO Q6H MDD 4 PRN (Reason: nausea and vomiting) Qty: 60 0RF thiamine HCl (vitamin B1) 100 mg capsule 100 mg PO QDAY Qty: 30 0RF multivitamin Tablet 1 tab PO QDAY Qty: 30 0RF baclofen 10 mg tablet 10 mg PO Q8H PRN (Reason: muscle spasm) diclofenac sodium 1 % gel 2 g TOPICAL QDAY albuterol sulfate 90 mcg/actuation HFA aerosol inhaler 1 inh INHALATION BID PRN (Reason: bronchospasm) Patient Comments: INHALE 2 PUFF INHALED EVERY 6 HOURS NEEDED FOR COUGH tamsulosin 0.4 mg Capsule 0.4 mg PO QDAY Qty: 30 0RF lisinopril 10 mg tablet 10 mg PO QDAY Qty: 90 0RF Referrals: Grace Diaz MD [Primary Care Provider] - In 1 week Problem List Clinical Impression: Acute appendicitis, Hypertension, Alcoholism, chronic, Acute hypokalemia Patient/Caregiver Discharge Instructions Print Language: Serbian Stand Alone Forms: Mayuri Award Info., Patient Portal Info Letter [facility] Narrative [facility] hospital course: 49-year-old male patient with significant history of chronic alcoholism, hypertension, came in asking for help. According to the patient was admitted here a month ago for acute kidney injury due to alcoholism. Patient told me that he was back to baseline for 1 week, since then has been not feeling well, feeling generalized weakness, low energy, and near syncope. Patient has been having right lower quadrant pain since few days ago about 2 days ago according to him pain getting worse today, severity moderate. Patient did not follow-up with supposed appointment with PCP and not taking any medications also. Patient continues to drink alcohol every day and using meth also. Last alcohol intake was this morning. Denies any fever. No diarrhea no constipation. Laboratory workup came back with potassium of 2.4 creatinine 1.4, BUN normal, CBC no leukocytosis. Slightly elevated AST ALT and alk phos. Positive patient alcohol level today was noted to be 260. CT scan of the abdomen and pelvis showed Findings suspicious for early acute appendicitis, the appearance should be clinically correlated Patient received IV fluids, potassium replacement, IV Zosyn, morphine and Zofran I spoke with Dr. Cordero , who told me that he will see the patient tomorrow morning. Thank you Dr. Cordero Spoke with hospitalist, who admitted the patient. Medication Administration(s) Medication Administration History Piperacillin/Tazobactam/Dextrose (Zosyn) 3.375 gm in 50 mls @ 100 mls/hr IV X1 ONE Stop: 01/25/25 22:01 Discontinued Medications Hydralazine HCl (Hydralazine Inj 20 Mg/Ml Vial) 10 mg IVP X1 ONE Stop: 01/25/25 21:37 Lactated Ringer's (Lactated Ringers) 1,000 mls @ 999 mls/hr IV .Q1H1M ONE Stop: 01/25/25 17:54 Last Infusion: 01/25/25 18:11 Dose: Infused Documented By: Admin: 01/25/25 17:10 Dose: 999 mls/hr Documented By: EF Potassium Chloride (Kcl Ivpb) 10 meq in 100 mls @ 100 mls/hr IV X1 ONE Stop: 01/25/25 18:50 Last Infusion: 01/25/25 18:58 Dose: Infused Documented By: Admin: 01/25/25 17:58 Dose: 100 mls/hr Documented By: EF Morphine Sulfate (Morphine Sulf Inj 10 Mg/Ml Vial) 4 mg IVP X1 ONE Stop: 01/25/25 21:37 Potassium Chloride (Potassium Chloride 20 Meq Tabcr) 40 meq PO X1 ONE Stop: 01/25/25 17:51 Last Admin: 01/25/25 17:58 Dose: 40 meq Documented By: EF Potassium Chloride (Potassium Chloride 20 Meq Tabcr) 40 meq PO X1 ONE Stop: 01/25/25 20:11 Last Admin: 01/25/25 20:19 Dose: 40 meq Documented By: EF
[2025-01-25 17:02] VITALS: BP 187/94; PULSE 96; RESP 16; TEMP 37.1; O2SAT 97
[2025-01-25] MEDS: RINGERS LACTATED 1000 ML 1,000 ML 999 ML IV (17:10)
[2025-01-25 17:22] LABS: Basophils # (Auto) 0.0 Thou/mm3 (0.0-0.2); Basophils % (Auto) 1 % (0-2.5); Eosinophils # (Auto) 0.1 Thou/mm3 (0.0-0.5); Eosinophils % (Auto) 2 % (0-10); Hematocrit 38.8 % (41.0-53.0); Hemoglobin 12.4 g/dL (13.5-16.0); Immature Granulocytes Auto 0.02 Thou/mm3 (0.00-0.00); Lymphocytes # (Auto) 1.3 Thou/mm3 (1.0-4.8); Lymphocytes % (Auto) 15 % (10-50); Mean Corpuscular HGB Conc 32.0 g/dl (31.0-37.0); Mean Corpuscular Hemoglobin 28.4 pg (25.0-35.0); Mean Corpuscular Volume 89 fL (80-100); Monocytes # (Auto) 0.5 Thou/mm3 (0.0-0.8); Monocytes % (Auto) 6 % (0-12); Neutrophils # (Auto) 6.5 Thou/mm3 (1.8-7.7); Neutrophils % (Auto) 77 % (37-80); Nucleated Red Blood Cell # 0.00 Thou/mm3 (0.00-0.00); Nucleated Red Blood Cell % 0 /100 WBC (0); Platelet Count 182 Thou/mm3 (140-440); RDW Standard Deviation 47.7 fL (35.1-43.9); Red Blood Count 4.36 Miln/mm3 (4.50-5.90); White Blood Count 8.5 Thou/mm3 (3.8-10.6)
[2025-01-25 17:42] LABS: Partial Thromboplastin Time 27.4 Seconds (22.0-36.0)
[2025-01-25 17:44] LABS: Alanine Aminotransferase 65 U/L (10-49); Albumin, Serum 4.4 gm/dL (3.5-5.0); Albumin/Globulin Ratio 1.4 (1.2-2.2); Alcohol, Blood Medical 260.8 mg/dL (0-10.0); Alkaline Phosphatase 276 U/L (46-116); Anion Gap 17 (7-16); Aspartate Amino Transferase 137 U/L (0-34); BUN/Creatinine Ratio 9 Ratio (12-20); Bilirubin,Total 0.6 mg/dL (0.3-1.2); Blood Urea Nitrogen 12 mg/dL (9-23); Calcium 9.2 mg/dL (8.3-10.6); Calcium (Corrected) 9.2 mg/dL (8.5-10.1); Carbon Dioxide 21.4 mMol/L (20.0-31.0); Chloride 106 mMol/L (98-107); Creatinine (Component) 1.4 mg/dL (0.6-1.3); Estimated Creatinine Clearance 77.6 mL/min (>60); Globulin 3.1 gm/dL (2.3-3.5); Glucose 242 mg/dL (74-106); Magnesium 1.6 mg/dL (1.6-2.6); Osmolality,Calculated 294 (275-295); Sodium 144 mMol/L (136-145); Total Protein 7.5 gm/dL (5.7-8.2); Troponin I < 0.020 ng/mL (0.0-0.045); eGFR > 60 See Note
[2025-01-25 17:48] LABS: Potassium 2.4 mMol/L (3.4-5.1)
[2025-01-25] MEDS: POTASSIUM CHL 10 mEq IVPB 10 MEQ/100 ML BAG 100 MEQ IV (17:58)
--- NOTE | 2025-01-25 20:10 | XR_ITS ---
Examination: CT abdomen with intravenous contrast CT pelvis with intravenous contrast 2-D coronal reconstructions 2-D sagittal reconstructions Date and time of exam:January 25, 20252057 hours, comparison December 26, 2024 INDICATIONS: Onset abdominal pain beginning one week ago. CTDI: vol (mGy) 18.81 DLP: (mGycm) 903 Technique: Multiple axial sections of the abdomen and pelvis have been obtained. 64 slice high-resolution scanner used. 3 mm axial sections have been obtained, post intravenous injection of 60 cc of Isovue 370 2-D sagittal, coronal reconstructions obtained. Low dose protocols were performed. One or more of the following dose reduction techniques were used; automated exposure control, adjustment of the mA and/or KV according to patient size, use of iterative reconstruction technique. Findings: Liver is irregular in contour with fatty infiltration Moderate hepatomegaly, splenomegaly Gallstones No pancreatic or adrenal mass. Significant left renal scarring, no hydronephrosis renal or ureteral calculi Aorta normal size 20 mm fat-containing umbilical hernia The appendix, coronal image 94 is fluid-filled thickened with subtle periappendiceal inflammatory change, also seen axial images 160 through 175, posterior to the cecum No abscess No free air Bladder intact IMPRESSION: Findings suspicious for early acute appendicitis, the appearance should be clinically correlated
[2025-01-25 20:16] VITALS: BP 146/90; PULSE 91; RESP 16; O2SAT 97
[2025-01-25 21:17] VITALS: BP 187/106; PULSE 88; RESP 17; TEMP 37; O2SAT 95
[2025-01-25] MEDS: PIPER/TAZO 3.375 GM PREMIX 3.375 GM/50 ML BAG IV (21:59)
[2025-01-25] MEDS: MORPHINE SULF INJ 10 MG/ML VIAL 4 MG IVP (21:59)
[2025-01-25 22:49] VITALS: BP 154/87; PULSE 85; RESP 16; O2SAT 95
--- NOTE | 2025-01-25 22:59 | ESHP_ITS ---
<Statement entered by Tony Moore MD - 01/27/25 10:03> I have discussed and was present for the essential components of the history, physical examination, diagnosis, and treatment plan with the resident. I agree with the patient's care as documented by the resident and amended herein by me. Tony Moore MD FACP. Documentation for date of: 01/25/25 HPI History of Present Illness Chief complaint: Stomach pain, fatigue History of present illness: 49 y/o M with PMHx significant for hypertension, meth abuse, alcohol abuse presents with chief complaint of diffuse abdominal pain most severe in right lower quadrant and general weakness. Patient is a poor historian, however consistently reports that he has had abdominal pain for several days, grown progressively worse. Abdominal pain is diffuse but most constant in the right lower quadrant. Patient also reports nausea with vomiting and shortness of breath during this time. Continues to have regular bowel movements. Patient denies fevers, chills, chest pain, diarrhea, constipation, dysuria. ED COURSE: Labs significant for: WBC 8.5, BUN 12, creatinine 1.4 (greater than baseline), EGFR greater than 60, T. bili 0.6, AST 137, ALT 65, ALP 276, ethyl alcohol level 260. Hypokalemia, potassium 2.4. Imaging significant for: Chest x-ray unremarkable. CT A/P showed acute appendicitis. Dr. Cordero consulted in the ED, will see patient tomorrow. Patient received 80 p.o. potassium, 10 IV potassium, 1 L bolus lactated Ringer's in the ED. PMH: Hypertension, meth abuse, alcohol abuse PSH: None SH: Denies tobacco use. Reports meth use, reports drinking 12 pack of beer daily. Last drink morning of admission Allergies:?NKDA Medications: Amlodipine, lisinopril?HCTZ Review of Systems Review of Systems Systems Reviewed: All systems reviewed, normal except as documented Past Medical History Past Medical History Comments PMH COMMENT: PMH: Hypertension, meth abuse, alcohol abuse PSH: None SH: Denies tobacco use. Reports meth use, reports drinking 12 pack of beer daily. Last drink morning of admission Allergies:?NKDA Medications: Amlodipine, lisinopril?HCTZ Exam Vital Signs Temp Pulse Resp BP Pulse Ox O2 Del Method 98.6 F 85 16 154/87 H 95 Room Air 01/25/25 21:17 08/16/25 22:49 01/25/25 22:49 01/25/25 22:49 01/25/25 22:49 01/25/25 22:49 Narrative Exam PE: Gen: Well-developed and well-nourished. Disheveled. HEENT: NCAT, PERRLA, EOMI, MMM, objective injection. CVS: normal S1 and S2. RRR. No M/R/G. Resp: CTA B/L. No rhonchi, rales, crackles or wheezing. Abd: soft, non-distended. Moderate diffuse abdominal tenderness, most significant in RLQ. Heeltap test negative. MSK: Good ROM in BUE & BLE. No edema or rash. Small ulcer on dorsum of left great toe, tender. Neuro: CN II-XII grossly intact. Strength 5/5 in BUE & BLE. Alert and oriented x3. Unreliable historian. Results: Labs 01/25/25 17:13 01/25/25 17:13 Labs: Short CBC 01/25/25 Range/Units 17:13 WBC 8.5 (3.8-10.6) Thou/mm3 Hgb 12.4 L (13.5-16.0) g/dL Hct 38.8 L (41.0-53.0) % Plt Count 182 (140-440) Thou/mm3 BMP 01/25/25 17:13 Sodium 144 Potassium 2.4 L* Chloride 106 Carbon Dioxide 21.4 BUN 12 Creatinine 1.4 H Glucose 242 H Calcium 9.2 Cardiac Enzymes 01/25/25 Range/Units 17:13 Troponin I < 0.020 (0.0-0.045) ng/mL Liver Function 01/25/25 Range/Units 17:13 Total Bilirubin 0.6 (0.3-1.2) mg/dL AST 137 H (0-34) U/L ALT 65 H (10-49) U/L Alkaline Phosphatase 276 H (46-116) U/L Albumin 4.4 (3.5-5.0) gm/dL Quality Measures Quality Measures VTE prophylaxis Medications Home Medications and Allergies Home Medications ?Medication ?Instructions ?Recorded ?Confirmed ?Type albuterol sulfate 90 mcg/actuation 1 inh inhalation BI D PRN 12/26/24 12/26/24 History aerosol inhaler bronchospasm baclofen 10 mg tablet 10 mg PO Q8H PRN muscle spas m 12/26/24 12/26/24 History diclofenac sodium 1 % topical gel 2 g topical QDAY 12/26/24 History Allergies Allergy/AdvReac Type Severity Reaction Status Date / Time No Known Allergies Allergy Verified 01/25/25 16:27 Visit Medications Acetaminophen (Acetaminophen Supp 650 Mg Supp) 650 mg NM Q6HR PRN PRN Reason: Fever > 100.4 or pain Stop: 02/24/25 22:44 Diazepam (Diazepam Inj 5 Mg/Ml Vial 2 Ml) 2.5 mg IVP Q2HR PRN PRN Reason: CIWA SCORE 8-13 Stop: 01/30/25 22:44 Diazepam (Diazepam Inj 5 Mg/Ml Vial 2 Ml) 5 mg IVP Q2HR PRN PRN Reason: CIWA SCORE 14-19 Stop: 01/30/25 22:44 Diazepam (Diazepam Inj 5 Mg/Ml Vial 2 Ml) 10 mg IVP Q2HR PRN PRN Reason: CIWA SCORE 20-25 Stop: 01/30/25 22:44 Lactated Ringer's (Lactated Ringers) 1,000 mls @ 100 mls/hr IV .Q10H [facility] Stop: 01/26/25 18:44 Ceftriaxone Sodium 2 gm/ (Sodium Chloride) 50 mls @ 100 mls/hr IV X1 ONE Stop: 01/25/25 23:26 Ceftriaxone Sodium 2 gm/ (Sodium Chloride) 50 mls @ 100 mls/hr IV QDAY [facility] Stop: 02/02/25 08:59 Metronidazole (Flagyl 500 Mg Iv) 500 mg in 100 mls @ 200 mls/hr IV Q8HR [facility] Stop: 02/01/25 22:57 Morphine Sulfate (Morphine Sulf Inj 10 Mg/Ml Vial) 2 mg IVP Q3H PRN PRN Reason: PAIN SCALE 4-10(Mod-Sev Stop: 01/30/25 22:44 Ondansetron HCl (Ondansetron Inj 2 Mg/Ml Inj 2 Ml) 4 mg IVP Q6H PRN; Protocol PRN Reason: NAUSEA OR VOMITING Stop: 02/24/25 22:44 Thiamine HCl (Thiamine Inj 100 Mg/Ml Vial 2 Ml) 100 mg IVP QDAY [facility] Stop: 02/25/25 08:59 Discontinued Medications Hydralazine HCl (Hydralazine Inj 20 Mg/Ml Vial) 10 mg IVP X1 ONE Stop: 01/25/25 21:37 Lactated Ringer's (Lactated Ringers) 1,000 mls @ 999 mls/hr IV .Q1H1M ONE Stop: 01/25/25 17:54 Last Infusion: 01/25/25 18:11 Dose: Infused Potassium Chloride (Kcl Ivpb) 10 meq in 100 mls @ 100 mls/hr IV X1 ONE Stop: 01/25/25 18:50 Last Infusion: 01/25/25 18:58 Dose: Infused Piperacillin/Tazobactam/Dextrose (Zosyn) 3.375 gm in 50 mls @ 100 mls/hr IV X1 ONE Stop: 01/25/25 22:01 Last Admin: 01/25/25 21:59 Dose: 100 mls/hr Morphine Sulfate (Morphine Sulf Inj 10 Mg/Ml Vial) 4 mg IVP X1 ONE Stop: 01/25/25 21:37 Last Admin: 01/25/25 21:59 Dose: 4 mg Potassium Chloride (Potassium Chloride 20 Meq Tabcr) 40 meq PO X1 ONE Stop: 01/25/25 17:51 Last Admin: 01/25/25 17:58 Dose: 40 meq Potassium Chloride (Potassium Chloride 20 Meq Tabcr) 40 meq PO X1 ONE Stop: 01/25/25 20:11 Last Admin: 01/25/25 20:19 Dose: 40 meq Assessment & Plan Plan 49 y/o M with PMHx significant for hypertension, meth abuse, alcohol abuse presents with chief complaint of diffuse abdominal pain most severe in right lower quadrant and general weakness, admitted for acute appendicitis. #Acute appendicitis Patient presents with complaint of abdominal pain worsening right lower quadrant. CT shows acute appendicitis. Dr. Cordero consulted, will see patient tomorrow. Sofa score 1, nonseptic - Ceftriaxone 2 g IV daily (started 01/25) - Flagyl 500 mg IV every 8 hour (started 01/25) - Surgery consulted, appreciate recommendations - N.p.o. pending surgery eval - Morphine as needed for severe pain - IVF: LR at 100 mL/h x 2 L #RANDELL Patient presents with RANDELL, creatinine 1.4, baseline creatinine 0.9. Suspect dehydration in setting of acute appendicitis. Patient continues to make good urine output. - Monitor daily labs - IVF as above - Avoid nephrotoxins #Alcohol abuse #Meth abuse Patient history as stated. Alcohol levels on admission 260. Patient reports drinking 12 pack daily, last drink morning of admission. - [facility] protocol - Counseling regarding substance abuse - Protonix 40 mg IV daily #HTN Patient history as stated. Takes lisinopril?HCTZ, amlodipine at home. Holding lisinopril in setting of RANDELL. - Patient currently n.p.o., resume home meds when appropriate #Ulcer, left great toe Patient has a small, clean ulcer to the dorsum of the left great toe. Ulcer is tender to the touch. - Wound care referral DVT prophylaxis: Heparin GI prophylaxis: Protonix Diet: N.p.o. Lines: Peripheral IV Code status: Full code Plan of care discussed with attending Dr. Moore. Harshil Lee MD PGY?2
[2025-01-25 23:40] VITALS: BP 180/98; PULSE 83
[2025-01-25] MEDS: RINGERS LACTATED 1000 ML 1,000 ML 100 ML IV (23:40)
[2025-01-25] MEDS: hydrALAZINE INJ 20 MG/ML VIAL 10 MG IVP (23:40)
[2025-01-25] MEDS: metroNIDAZOLE/NS 500 MG IVPB 500 MG/100 ML BAG 200 MG IV (23:41)
[2025-01-25] MEDS: cefTRIAXone 2 GM in SODIUM CHLORIDE 0.9% (Popper) 50 ML IV (23:41)
[2025-01-25] MEDS: DIAZEPAM INJ 5 MG/ML VIAL 2 ML 2.5 MG IVP (23:51)
[2025-01-26] VITALS (11 sets, daily range): BP systolic 127–177; BP diastolic 83–105; PULSE 71–95; RESP 12–18; TEMP 36.1–36.5; O2SAT 95–99; BMI 29.0
[2025-01-26 01:48] LABS: Anion Gap 10 (7-16); BUN/Creatinine Ratio 13 Ratio (12-20); Blood Urea Nitrogen 12 mg/dL (9-23); Calcium 8.8 mg/dL (8.3-10.6); Carbon Dioxide 25.6 mMol/L (20.0-31.0); Chloride 106 mMol/L (98-107); Creatinine (Component) 0.9 mg/dL (0.6-1.3); Estimated Creatinine Clearance 120.7 mL/min (>60); Glucose 103 mg/dL (74-106); Osmolality,Calculated 282 (275-295); Potassium 3.2 mMol/L (3.4-5.1); Sodium 142 mMol/L (136-145); eGFR > 60 See Note
[2025-01-26] MEDS: ONDANSETRON INJ 2 MG/ML INJ 2 ML 4 MG IVP (01:59)
[2025-01-26] MEDS: MORPHINE SULF INJ 10 MG/ML VIAL 2 MG IVP ×2 (01:59→06:00)
[2025-01-26] MEDS: Magnesium Sulfate 4 GM Ivpb 4 GM/50 ML BAG IV (02:00)
[2025-01-26] MEDS: DIAZEPAM INJ 5 MG/ML VIAL 2 ML 2.5 MG IVP (03:51)
[2025-01-26] MEDS: metroNIDAZOLE/NS 500 MG IVPB 500 MG/100 ML BAG 200 MG IV ×3 (05:43→21:19)
[2025-01-26 06:09] LABS: Basophils # (Auto) 0.0 Thou/mm3 (0.0-0.2); Basophils % (Auto) 1 % (0-2.5); Eosinophils # (Auto) 0.1 Thou/mm3 (0.0-0.5); Eosinophils % (Auto) 2 % (0-10); Hematocrit 35.4 % (41.0-53.0); Hemoglobin 11.3 g/dL (13.5-16.0); Immature Granulocytes Auto 0.02 Thou/mm3 (0.00-0.00); Lymphocytes # (Auto) 0.9 Thou/mm3 (1.0-4.8); Lymphocytes % (Auto) 12 % (10-50); Mean Corpuscular HGB Conc 31.9 g/dl (31.0-37.0); Mean Corpuscular Hemoglobin 28.7 pg (25.0-35.0); Mean Corpuscular Volume 90 fL (80-100); Monocytes # (Auto) 0.6 Thou/mm3 (0.0-0.8); Monocytes % (Auto) 9 % (0-12); Neutrophils # (Auto) 5.6 Thou/mm3 (1.8-7.7); Neutrophils % (Auto) 77 % (37-80); Nucleated Red Blood Cell # 0.00 Thou/mm3 (0.00-0.00); Nucleated Red Blood Cell % 0 /100 WBC (0); Platelet Count 112 Thou/mm3 (140-440); RDW Standard Deviation 47.6 fL (35.1-43.9); Red Blood Count 3.94 Miln/mm3 (4.50-5.90); White Blood Count 7.3 Thou/mm3 (3.8-10.6)
[2025-01-26 06:37] LABS: Collection Type, Urine Clean Catch; Squamous Epithelial Cell,Urine 0 /hpf (0-5)
[2025-01-26 06:39] LABS: INR 1.1 (0.9-1.3); Partial Thromboplastin Time 27.0 Seconds (22.0-36.0); Prothrombin Time 11.6 Seconds (9.0-12.2)
[2025-01-26 06:56] LABS: Bilirubin,Urine Negative (Negative); Blood,Urine Negative (Negative); Clarity,Urine Clear (Clear/Hazy); Color,Urine Yellow (Lt Yel-Yel); Culture Indicated,Urine Not Indicated; Glucose, Urine Trace (Negative); Hyaline Casts,Urine 1 /hpf (0-1); Ketones,Urine Negative (Negative); Leukocyte Esterase,Urine Negative (Negative); Nitrite,Urine Negative (Negative); PH,Urine 6.0 (5.0-7.0); Protein,Urine 1+ (Neg - Trace); RBC,Urine 1 /hpf (0-3); Urobilinogen,Urine Negative mg/dL (0.0-1.0); WBC,Urine 1 /hpf (0-5)
[2025-01-26 07:37] LABS: Alanine Aminotransferase 51 U/L (10-49); Albumin, Serum 3.9 gm/dL (3.5-5.0); Albumin/Globulin Ratio 1.5 (1.2-2.2); Alkaline Phosphatase 203 U/L (46-116); Anion Gap 11 (7-16); Aspartate Amino Transferase 102 U/L (0-34); BUN/Creatinine Ratio 15 Ratio (12-20); Bilirubin,Total 1.5 mg/dL (0.3-1.2); Blood Urea Nitrogen 12 mg/dL (9-23); Calcium 8.9 mg/dL (8.3-10.6); Calcium (Corrected) 9.0 mg/dL (8.5-10.1); Carbon Dioxide 25.6 mMol/L (20.0-31.0); Cardiac Risk Estimate 2.8 RATIO (4.0-6.7); Chloride 106 mMol/L (98-107); Cholesterol 207 mg/dL (132-200); Creatinine (Component) 0.8 mg/dL (0.6-1.3); Estimated Creatinine Clearance 135.8 mL/min (>60); Globulin 2.6 gm/dL (2.3-3.5); Glucose 108 mg/dL (74-106); HDL Cholesterol 75 mg/dL (40-60); LDL Cholesterol,Calculated 115 mg/dL (0-130); Magnesium 2.2 mg/dL (1.6-2.6); Osmolality,Calculated 285 (275-295); Phosphorous 2.7 mg/dL (2.4-5.1); Potassium 3.0 mMol/L (3.4-5.1); Sodium 143 mMol/L (136-145); Total Protein 6.5 gm/dL (5.7-8.2); Triglycerides 86 mg/dL (30-150); eGFR > 60 See Note
[2025-01-26 07:42] LABS: Specific Gravity,Urine 1.025 (1.001-1.035)
[2025-01-26] MEDS: THIAMINE INJ 100 MG/ML VIAL 2 ML IVP (08:14)
[2025-01-26] MEDS: cefTRIAXone 2 GM in SODIUM CHLORIDE 0.9% (Popper) 50 ML IV (08:14)
[2025-01-26] MEDS: RINGERS LACTATED 1000 ML 1,000 ML 100 ML IV (09:56)
[2025-01-26] MEDS: HEPARIN SOD INJ 5000 UNIT/ML VIAL SC ×2 (10:24→21:19)
--- NOTE | 2025-01-26 11:25 | PD.SURCONS ---
HPI Consult details Consult date: 01/26/25 Reason for consultation narrative: The patient was seen in consultation because of possible acute appendicitis seen on the CT scan History of present illness: History of present illness revealed that the patient has been having chronic abdominal pain for quite some time. He said he has been having abdominal pain for the past month but it increased yesterday and therefore he came to the emergency room. He does not have any nausea or vomiting. He has not been eating well but he is drinking tall cans of beer per day for the past 4 or 5 years. He has been admitted to the emergency room multiple times with alcohol intoxication. In addition to that he also use methamphetamine. His pain is generalized but more so in the lower abdomen on both sides his other medical problem consist of hypertension on evaluation for acute appendicitis in the past and alcohol withdrawal and history of gallstone and tension headache and low back pain he said his gallstones were diagnosed in the past but he did not have any recommendation for surgery. Past Medical History Past Medical History CARDIAC: Positive Hypertension; Negative Cardiac Disorders or Congestive Heart Failure RESPIRATORY: Negative Chronic Obstructive Pulmonary Disease (COPD) or Asthma GASTROINTESTINAL: Positive Gastrointestinal Disorders and Gall Bladder Disease GENITOURINARY: Positive Renal Disease MUSCULOSKELETAL: Positive Arthritis ENDOCRINE: Negative Diabetes Mellitus Type 1 or Diabetes Mellitus Type 2 HEMATOLOGIC: Negative Sickle Cell Disease OTHER HISTORY: Positive Falls; Negative Blood Transfusions, Anesthesia Reactions or Cancer Family History FAMILY HISTORY: Positive Family Cardiac Disorders and Family Cancer Social History SMOKING STATUS: Never smoker SECOND HAND EXPOSURE: Yes (sister including marijuana) SUBSTANCE USE: does not use Past Medical History Comments PMH COMMENT: PMH: Hypertension, meth abuse, alcohol abuse PSH: None SH: Denies tobacco use. Reports meth use, reports drinking 12 pack of beer daily. Last drink morning of admission Allergies:?NKDA Medications: Amlodipine, lisinopril?HCTZ Meds Home Medications and Allergies Home Medications ?Medication ?Instructions ?Recorded ?Confirmed ?Type albuterol sulfate 90 mcg/actuation 1 inh inhalation BID PRN 12/26/24 01/26/25 History aerosol inhaler bronchospasm baclofen 10 mg tablet 10 mg PO Q8H PRN muscle spasm 12/26/24 01/26/25 History diclofenac sodium 1 % topical gel 2 g topical QDAY 12/26/24 01/26/25 History Allergies Allergy/AdvReac Type Severity Reaction Status Date / Time No Known Allergies Allergy Verified 01/25/25 16:27 Exam Vital Signs Temp Pulse Resp BP Pulse Ox O2 Del Method 97.2 F 75 15 169/103 H 95 Room Air 01/26/25 08:00 01/26/25 08:00 01/26/25 08:00 01/26/25 08:00 01/26/25 08:00 01/26/25 08:00 Narrative Exam Physical examination revealed an slightly obese male who appeared to be in his stated age. He is weighing 220 pounds with BMI of 29.1 his vital signs are normal other than elevated blood pressure of 169/103 Constitutional Constitutional: mild distress Routine Abdominal Exam Comments: Examination of the abdomen showed tenderness in the epigastric region as well as in the left lower quadrant and suprapubic region as well as on the right lower quadrant. Bowel sounds are present but hypoactive. There is a tenderness on deep palpation over the McBurney's point Routine Rectal Exam Comments: Deferred Routine Extremities Exam Comments: Deferred Results Results: Laboratory Laboratory Narrative: Patient's laboratory workup showed a normal WBC but he has acute alcohol intoxication. His potassium is 3 and it was 2.4 at the time of admission Results: Imaging Imaging narrative: CT scan showed enlarged appendix suggesting early appendicitis and enlarged liver Assessment & Plan Additional Assessment Additional comments: Impression: Abdominal pain of unknown etiology, chronic No evidence of acute appendicitis at this time because patient has had a similar picture in the past 2 CT scans 1 in September and another 1 in December and I have seen him in consultation in September for the same problem. The appendix seem to be prominent but no evidence of infection or inflammation was seen on the CT Hypokalemia Severe alcohol abuse History of gallstones Plan Plan: I do not think the patient has a surgical condition. His enlarged appendix seems to be shown on every CT scan but cannot be managed with antibiotic therapy. Even if he has mild appendicitis or early appendicitis antibiotic therapy will take care of it. I will treat his acute alcoholism and discharge you
--- NOTE | 2025-01-26 11:55 | XR_ITS ---
Examination: Abdomen sonogram, complete Date and time of exam: January 26, 2025 at 1715 hrs. Indications: Elevated bilirubin on laboratory examination today, mid abdominal pain one month. Technique: Multiple real-time grayscale transabdominal sonographic images of the abdomen have been obtained. Findings: Contracted gallbladder, gallstones Normal gallbladder wall. Normal common bile duct 0.4 cm Pancreatic head 3.1 cm Proximal mid aorta visualized not enlarged. Hepatomegaly 20.9 cm fatty infiltration Normal hepatopedal portal venous flow Patent IVC Right kidney 12.7 cm cortex 1.6 cm Left kidney 10.5 cm cortex 1.9 cm 11 mm lower pole left renal cyst. Significant splenomegaly 16.7 cm Impression: Hepatosplenomegaly Cholelithiasis, negative for cholecystitis No common hepatic or common bile duct stones
[2025-01-26] MEDS: TAMSULOSIN HCL 0.4 MG CAPSULE PO (12:29)
[2025-01-26 14:03] LABS: Amphetamine/Methamp Scrn,U Positive (Negative); Barbiturate Screen,Urine Negative (Negative); Benzodiazepines Screen,Urine Negative (Negative); Benzoylecgonine Screen, Ur Negative (Negative); Fentanyl Screen,Urine Negative (Negative); Opiate Screen,Urine Positive (Negative); THC Screen,Urine Negative (Negative)
--- NOTE | 2025-01-26 14:13 | ESPR_ITS ---
Documentation for date of: 01/26/25 Subjective Subjective Interval history: Overnight events: No acute events overnight. Patient admitted overnight. Patient was seen and examined at bedside. AM vitals and labs reviewed. Patient continues to complain of pain in abdomen. Most pain noted to be in the right lower quadrant. CIWA score 2. Bilirubin noted to have increased to 1.5 today. AST 102, ALT 52, ALP 203. Continue patient on ceftriaxone 2 g and Flagyl 500 mg. Continue CIWA protocol. Continue IV Protonix 40 mg daily. Started patient on home amlodipine 5 mg daily, lisinopril 10 mg daily, and tamsulosin 0.4 mg daily. Ultrasound of abdomen ordered to investigate biliary tree given increased bilirubin and elevated LFTs. Dr. Cordero was consulted, does not recommend appendectomy at this time. Review of systems otherwise negative except for what is mentioned above. Exam Vital Signs Temp Pulse Resp BP Pulse Ox O2 Del Method 97.0 F 77 12 177/105 H 98 Room Air 01/26/25 12:00 01/26/25 12:29 01/26/25 12:01/26/25 12:01/26/25 12:01/26/25 12:00 Narrative Exam Physical Exam: General: Alert, no acute distress. Skin: Warm, dry, intact, no obvious rash. Head: Normocephalic, atraumatic. Eye: Normal conjunctiva, PERRL. Cardiovascular: Regular rate and rhythm, no murmur, +S1/S2. Respiratory: Lungs are clear to auscultation, respirations unlabored, no crackles, no wheezing. Gastrointestinal: Soft, diffusely tender to palpation which was worse in RLQ, d istended. No guarding. Extremities: No edema, no cyanosis, no clubbing. 2+ radial pulse bilaterally, 2+ pedal pulse bilaterally. Slight tremors in arms. Neuro: No focal deficits observed. Conversant, moving all extremities. No overt cerebellar signs/incoordination. Psychiatric: Cooperative, appropriate affect. Objective Labs 01/26/25 05:07 01/26/25 05:07 Labs: Laboratory Results - last 24 hr 01/25/25 01/26/25 01/26/25 17:13 01:18 05:00 WBC 8.5 RBC 4.36 L Hgb 12.4 L Hct 38.8 L MCV 89 MCH 28.4 MCHC 32.0 RDW Std Deviation 47.7 H Plt Count 182 Neut % (Auto) 77 Lymph % (Auto) 15 [place] % (Auto) 6 Eos % (Auto) 2 Baso % (Auto) 1 Neut # (Auto) 6.5 Lymph # (Auto) 1.3 [place] # (Auto) 0.5 Eos # (Auto) 0.1 Baso # (Auto) 0.0 Immature Gran # (Auto) 0.02 H Absolute Nucleated RBC 0.00 Immature Gran % 0 Nucleated RBC % 0 PT INR APTT 27.4 Sodium 144 142 Potassium 2.4 L* 3.2 L D Chloride 106 106 Carbon Dioxide 21.4 25.6 Anion Gap 17 H 10 BUN 12 12 Creatinine 1.4 H 0.9 D Estim Creat Clear Calc 77.6 120.7 eGFR > 60 > 60 BUN/Creatinine Ratio 9 L 13 Glucose 242 H 103 D Calculated Osmolality 294 282 Calcium 9.2 8.8 Corrected Calcium 9.2 Phosphorus Magnesium 1.6 Total Bilirubin 0.6 AST 137 H ALT 65 H Alkaline Phosphatase 276 H Troponin I < 0.020 Total Protein 7.5 Albumin 4.4 Globulin 3.1 Albumin/Globulin Ratio 1.4 Triglycerides Cholesterol LDL Cholesterol, Calc HDL Cholesterol Cholesterol/HDL Ratio Ur Collection Type Clean Catch Urine Color Yellow Urine Clarity Clear Urine pH 6.0 Ur Specific Spencer 1.025 Urine Protein 1+ A Urine Glucose (UA) Trace Urine Ketones Negative Urine Blood Negative Urine Nitrite Negative Urine Bilirubin Negative Urine Urobilinogen (Auto) Negative Ur Leukocyte Esterase Negative Urine RBC 1 Urine WBC 1 Ur Squamous Epith Cells 0 Urine Bacteria None Hyaline Casts 1 Ur Culture Indicated? Not Indicated Urine Opiates Screen Urine Fentanyl Screen Ur Barbiturates Screen U Amphetamin/Meth Scrn U Benzodiazepines Scrn U Cocaine Metab Screen U Marijuana (THC) Screen Ethyl Alcohol 260.8 H 01/26/25 01/26/25 05:07 12:25 WBC 7.3 RBC 3.94 L Hgb 11.3 L Hct 35.4 L MCV 90 MCH 28.7 MCHC 31.9 RDW Std Deviation 47.6 H Plt Count 112 L D Neut % (Auto) 77 Lymph % (Auto) 12 [place] % (Auto) 9 Eos % (Auto) 2 Baso % (Auto) 1 Neut # (Auto) 5.6 Lymph # (Auto) 0.9 L [place] # (Auto) 0.6 Eos # (Auto) 0.1 Baso # (Auto) 0.0 Immature Gran # (Auto) 0.02 H Absolute Nucleated RBC 0.00 Immature Gran % 0 Nucleated RBC % 0 PT 11.6 INR 1.1 APTT 27.0 Sodium 143 Potassium 3.0 L Chloride 106 Carbon Dioxide 25.6 Anion Gap 11 BUN 12 Creatinine 0.8 Estim Creat Clear Calc 135.8 eGFR > 60 BUN/Creatinine Ratio 15 Glucose 108 H Calculated Osmolality 285 Calcium 8.9 Corrected Calcium 9.0 Phosphorus 2.7 Magnesium 2.2 Total Bilirubin 1.5 H D AST 102 H ALT 51 H Alkaline Phosphatase 203 H D Troponin I Total Protein 6.5 Albumin 3.9 D Globulin 2.6 Albumin/Globulin Ratio 1.5 Triglycerides 86 Cholesterol 207 H LDL Cholesterol, Calc 115 HDL Cholesterol 75 H Cholesterol/HDL Ratio 2.8 L Ur Collection Type Urine Color Urine Clarity Urine pH Ur Specific Spencer Urine Protein Urine Glucose (UA) Urine Ketones Urine Blood Urine Nitrite Urine Bilirubin Urine Urobilinogen (Auto) Ur Leukocyte Esterase Urine RBC Urine WBC Ur Squamous Epith Cells Urine Bacteria Hyaline Casts Ur Culture Indicated? Urine Opiates Screen Positive A Urine Fentanyl Screen Negative Ur Barbiturates Screen Negative U Amphetamin/Meth Scrn Positive A U Benzodiazepines Scrn Negative U Cocaine Metab Screen Negative U Marijuana (THC) Screen Negative Ethyl Alcohol Quality Measures Quality Measures VTE prophylaxis Assessment & Plan Assessment Current Active Medications: Generic Name Dose Route Start Last Admin Trade Name Freq PRN Reason Stop Dose Admin Acetaminophen 650 mg 01/25/25 22:45 Acetaminophen Supp 650 Mg Supp FL 02/24/25 22:44 Q6HR PRN Fever > 100.4 or pain 1-3 Amlodipine Besylate 5 mg 01/26/25 12:00 01/26/25 12:28 Amlodipine Besylate 5 Mg Tablet PO 02/25/25 11:59 5 mg QDAY ROYER Administration Diazepam 2.5 mg 01/25/25 22:45 01/26/25 03:51 Diazepam Inj 5 Mg/Ml Vial 2 Ml IVP 01/30/25 22:44 2.5 mg Q2HR PRN Administration CIWA SCORE 8-13 Diazepam 5 mg 01/25/25 22:45 Diazepam Inj 5 Mg/Ml Vial 2 Ml IVP 01/30/25 22:44 Q2HR PRN CIWA SCORE 14-19 Diazepam 10 mg 01/25/25 22:45 Diazepam Inj 5 Mg/Ml Vial 2 Ml IVP 01/30/25 22:44 Q2HR PRN CIWA SCORE 20-25 Heparin Sodium (Porcine) 5,000 unit 01/26/25 09:00 01/26/25 10:24 Heparin Sod Inj 5000 Unit/Ml Vial SC 02/09/25 08:59 5,000 unit Q12HR ROYER Administration Lactated Ringer's 1,000 mls @ 100 mls/hr 01/25/25 22:45 01/26/25 09:56 Lactated Ringers IV 01/26/25 18:44 100 mls/hr .Q10H ROYER Administration Metronidazole 500 mg in 100 mls @ 200 mls/hr 01/26/25 06:00 01/26/25 13:30 Flagyl 500 Mg Iv IV 02/02/25 05:59 200 mls/hr Q8HR ROYER Administration Ceftriaxone Sodium/Dextrose 2 gm in 50 mls @ 100 mls/hr 01/27/25 09:00 Rocephin/D5w 2gm IV 02/03/25 08:59 QDAY ROYER Lisinopril 10 mg 01/26/25 12:00 01/26/25 12:29 Lisinopril 2.5 Mg Tablet PO 02/25/25 11:59 10 mg QDAY ROYER Administration Morphine Sulfate 2 mg 01/26/25 13:41 Morphine Sulf Inj 10 Mg/Ml Vial IVP 01/30/25 22:44 Q3H PRN PAIN SCALE 4-10(Mod-Sev Ondansetron HCl 4 mg 01/25/25 22:45 01/26/25 01:59 Ondansetron Inj 2 Mg/Ml Inj 2 Ml IVP 02/24/25 22:44 4 mg Q6H PRN Administration NAUSEA OR VOMITING Protocol Pantoprazole Sodium 40 mg 01/26/25 09:00 01/26/25 08:13 Pantoprazole Inj 40 Mg Vial IVP 02/25/25 08:59 40 mg QDAY ROYER Administration Tamsulosin HCl 0.4 mg 01/26/25 12:00 01/26/25 12:29 Tamsulosin Hcl 0.4 Mg Capsule PO 02/25/25 11:59 0.4 mg QDAY ROYER Administration Thiamine HCl 100 mg 01/26/25 09:00 01/26/25 08:14 Thiamine Inj 100 Mg/Ml Vial 2 Ml IVP 02/25/25 08:59 100 mg QDAY ROYER Administration Plan Mr. Mauro is a 49 year old male with a history of HTN, meth abuse, and alcohol abuse who presented to [facility] ED on 01/25 for complaints of diffuse abdominal pain that was worse in his right lower quadrant along with generalized weakness. Patient was admitted for acute appendicitis. #Acute appendicitis Patient presented with complaints of diffuse abdominal pain that was worse in right lower quadrant. Gutierrez sign positive. CT abdomen/pelvis scan suspicious early acute appendicitis. Sofa score 1, nonseptic ? Continue ceftriaxone 2 g daily and Flagyl 500 mg every 8 hours (01/25--) ? Morphine as needed for severe pain ? LR at 100 mL/h for maintenance fluids ? Surgery consulted, Dr. Colon recommends no surgery at this time #Hyperbilirubinemia #Transaminitis Patient noted to have a sharp increase in bilirubin from 0.6 on 01/25 to 1.5 on 01/26. Patient was also noted to have elevated LFTs on admission with AST 137, ALT 65, and alkaline phosphatase 276. Given the patient's abdominal pain, the constellation of these factors are concerning for obstruction of the biliary tree. ? Ultrasound abdomen ordered for investigation of biliary tree, which showed hepatosplenomegaly and cholelithiasis, but negative for cholecystitis or stones in common hepatic or common bile duct #RANDELL, likely prerenal 2/2 poor oral intake (resolving) Patient presented with creatinine of 1.4, baseline creatinine 0.9. This is most likely due to dehydration in setting of acute appendicitis. Patient appears to have good urine output. ? Continue to monitor daily labs ? Continue IV fluid hydration with lactated ringer ? Avoid nephrotoxins, renally dose medications #Hypokalemia Patient was noted to have potassium of 2.4 in ED. With replenishment, the patient had a potassium of 3.2 on admission. ? Will continue to monitor with daily labs ? Will replenish potassium as needed #Alcohol abuse #Meth abuse Patient noted to have a history of alcohol abuse. In ED, patient had alcohol level of 260. Patient reports drinking 12 pack beer daily, with last drink on the morning of 01/25. ? CIWA protocol ? Continue Protonix IV 40 mg daily ? Counseled regarding substance abuse #Primary hypertension Patient has a history of hypertension. Patient had a blood pressure of 187/94 on initial evaluation in ED. Patient takes lisinopril and amlodipine at home. ? Resume patient's home amlodipine 5 mg daily, lisinopril 10 mg daily, and tamsulosin 0.4 mg daily #Ulcer, left great toe Patient has small, clean ulcer to dorsum of left great toe. Ulcer is tender to touch. ? Wound care referral ordered DVT Prophylaxis: Heparin GI Prophylaxis: Protonix Bowel: N/A Diet: Clear liquids Beck: N/A Lines: Peripheral IV Antibiotics: Ceftriaxone & Flagyl (01/25--) Code Status: FULL Reason for Hospitalization: Acute appendicitis Other Barriers to Discharge: N/A Patient plan of care was discussed with the senior resident Dr. Del Cid and attending physician Dr. Nehemias Lacey, PGY1 Attending Provider Attestation/Addendum I Tati Del Cid MD reviewed the note and agree with the resident's assessment & plan with modifications/additions/exceptions as below. I have personally reviewed labs, imaging, home meds/prior records, examined the patient, formulated and discussed management plan with the IM team. 49-year-old male with history of HTN, asthma, BPH, methamphetamine use presented to ED with left lower quadrant pain for the past month which has progressively worsened over the past few days. CT scan did reveal concern for acute appendicitis, general surgery evaluated and recommended conservative management. Patient also noted to have electrolyte derangements and RANDELL which resolved after initial fluid resuscitation. LFTs are moderately elevated with cholestatic pattern which could be related to baseline liver disease in the setting of dehydration however patient also noted to have a large pancreatic head in imaging a month ago. Will obtain ultrasound hepatobiliary, repeat UDS, continue IV fluid resuscitation. Continue empiric antibiotic therapy with Rocephin and Flagyl. Will place on [facility] protocol for concerns of impending EtOH withdrawal
--- NOTE | 2025-01-26 15:51 | PC.SS ---
This is 49-year-old, single male who presented to the ED due to suffering from stomach pain. Patient appeared alert and oriented to self, place and situation. Patient is pleasant. Patient confirmed his address and phone number. Patient resides at home with parents. Patient is independent with all ADLs, no DME use. Patient assigned his daughter, Milan Ward, as his medical decision maker. Patient's PCP is Dr. Diaz at [facility]. When medically clear, patient will return home, no transportation will be needed. Discharge plan: patient will return home, no transportation will be needed.
[2025-01-27] VITALS (7 sets, daily range): BP systolic 146–165; BP diastolic 85–100; PULSE 73–104; RESP 11–19; TEMP 35.9–36.3; O2SAT 95–99; BMI 29.8
[2025-01-27] MEDS: MORPHINE SULF INJ 10 MG/ML VIAL 2 MG IVP (00:24)
[2025-01-27] MEDS: metroNIDAZOLE/NS 500 MG IVPB 500 MG/100 ML BAG 200 MG IV ×2 (06:04→13:26)
[2025-01-27 06:21] LABS: Basophils # (Auto) 0.0 Thou/mm3 (0.0-0.2); Basophils % (Auto) 1 % (0-2.5); Eosinophils # (Auto) 0.1 Thou/mm3 (0.0-0.5); Eosinophils % (Auto) 3 % (0-10); Hematocrit 34.5 % (41.0-53.0); Hemoglobin 10.9 g/dL (13.5-16.0); Immature Granulocytes Auto 0.00 Thou/mm3 (0.00-0.00); Lymphocytes # (Auto) 0.9 Thou/mm3 (1.0-4.8); Lymphocytes % (Auto) 18 % (10-50); Mean Corpuscular HGB Conc 31.6 g/dl (31.0-37.0); Mean Corpuscular Hemoglobin 28.9 pg (25.0-35.0); Mean Corpuscular Volume 92 fL (80-100); Monocytes # (Auto) 0.4 Thou/mm3 (0.0-0.8); Monocytes % (Auto) 9 % (0-12); Neutrophils # (Auto) 3.4 Thou/mm3 (1.8-7.7); Neutrophils % (Auto) 70 % (37-80); Nucleated Red Blood Cell # 0.00 Thou/mm3 (0.00-0.00); Nucleated Red Blood Cell % 0 /100 WBC (0); Platelet Count 112 Thou/mm3 (140-440); RDW Standard Deviation 47.8 fL (35.1-43.9); Red Blood Count 3.77 Miln/mm3 (4.50-5.90); White Blood Count 4.8 Thou/mm3 (3.8-10.6)
[2025-01-27 06:47] LABS: Alanine Aminotransferase 39 U/L (10-49); Albumin, Serum 3.6 gm/dL (3.5-5.0); Albumin/Globulin Ratio 1.4 (1.2-2.2); Alkaline Phosphatase 185 U/L (46-116); Anion Gap 10 (7-16); Aspartate Amino Transferase 71 U/L (0-34); BUN/Creatinine Ratio 13 Ratio (12-20); Bilirubin,Total 1.7 mg/dL (0.3-1.2); Blood Urea Nitrogen 9 mg/dL (9-23); Calcium 8.8 mg/dL (8.3-10.6); Calcium (Corrected) 9.1 mg/dL (8.5-10.1); Carbon Dioxide 25.4 mMol/L (20.0-31.0); Chloride 105 mMol/L (98-107); Creatinine (Component) 0.7 mg/dL (0.6-1.3); Estimated Creatinine Clearance 157.1 mL/min (>60); Globulin 2.5 gm/dL (2.3-3.5); Glucose 87 mg/dL (74-106); Magnesium 1.6 mg/dL (1.6-2.6); Osmolality,Calculated 277 (275-295); Phosphorous 1.9 mg/dL (2.4-5.1); Potassium 3.6 mMol/L (3.4-5.1); Sodium 140 mMol/L (136-145); Total Protein 6.1 gm/dL (5.7-8.2); eGFR > 60 See Note
--- NOTE | 2025-01-27 07:49 | PD.RESPRO ---
Documentation for date of: 01/27/25 Exam Vital Signs Temp Pulse Resp BP Pulse Ox O2 Del Method 96.7 F L 74 13 148/86 H 95 Room Air 01/27/25 04:00 01/27/25 04:00 01/27/25 04:00 01/27/25 04:00 01/27/25 04:00 01/27/25 04:00 Objective Labs 01/27/25 04:54 01/27/25 04:54 Labs: Laboratory Results - last 24 hr 01/26/25 01/27/25 12:25 04:54 WBC 4.8 RBC 3.77 L Hgb 10.9 L Hct 34.5 L MCV 92 MCH 28.9 MCHC 31.6 RDW Std Deviation 47.8 H Plt Count 112 L Neut % (Auto) 70 Lymph % (Auto) 18 [place] % (Auto) 9 Eos % (Auto) 3 Baso % (Auto) 1 Neut # (Auto) 3.4 Lymph # (Auto) 0.9 L [place] # (Auto) 0.4 Eos # (Auto) 0.1 Baso # (Auto) 0.0 Immature Gran # (Auto) 0.00 Absolute Nucleated RBC 0.00 Immature Gran % 0 Nucleated RBC % 0 Sodium 140 Potassium 3.6 D Chloride 105 Carbon Dioxide 25.4 Anion Gap 10 BUN 9 Creatinine 0.7 Estim Creat Clear Calc 157.1 eGFR > 60 BUN/Creatinine Ratio 13 Glucose 87 Calculated Osmolality 277 Calcium 8.8 Corrected Calcium 9.1 Phosphorus 1.9 L Magnesium 1.6 Total Bilirubin 1.7 H AST 71 H ALT 39 Alkaline Phosphatase 185 H Total Protein 6.1 Albumin 3.6 Globulin 2.5 Albumin/Globulin Ratio 1.4 Urine Opiates Screen Positive A Urine Fentanyl Screen Negative Ur Barbiturates Screen Negative U Amphetamin/Meth Scrn Positive A U Benzodiazepines Scrn Negative U Cocaine Metab Screen Negative U Marijuana (THC) Screen Negative Quality Measures Quality Measures VTE prophylaxis Assessment & Plan Assessment Current Active Medications: Generic Name Dose Route Start Last Admin Trade Name Freq PRN Reason Stop Dose Admin Acetaminophen 650 mg 01/25/25 22:45 Acetaminophen Supp 650 Mg Supp ID 02/24/25 22:44 Q6HR PRN Fever > 100.4 or pain 1-3 Amlodipine Besylate 5 mg 01/26/25 12:00 01/26/25 12:28 Amlodipine Besylate 5 Mg Tablet PO 02/25/25 11:59 5 mg QDAY ROYER Administration Diazepam 2.5 mg 01/25/25 22:45 01/26/25 03:51 Diazepam Inj 5 Mg/Ml Vial 2 Ml IVP 01/30/25 22:44 2.5 mg Q2HR PRN Administration CIWA SCORE 8-13 Diazepam 5 mg 01/25/25 22:45 Diazepam Inj 5 Mg/Ml Vial 2 Ml IVP 01/30/25 22:44 Q2HR PRN CIWA SCORE 14-19 Diazepam 10 mg 01/25/25 22:45 Diazepam Inj 5 Mg/Ml Vial 2 Ml IVP 01/30/25 22:44 Q2HR PRN CIWA SCORE 20-25 Heparin Sodium (Porcine) 5,000 unit 01/26/25 09:00 01/26/25 21:19 Heparin Sod Inj 5000 Unit/Ml Vial SC 02/09/25 08:59 5,000 unit Q12HR ROYER Administration Metronidazole 500 mg in 100 mls @ 200 mls/hr 01/26/25 06:00 01/27/25 06:04 Flagyl 500 Mg Iv IV 02/02/25 05:59 200 mls/hr Q8HR ROYER Administration Ceftriaxone Sodium/Dextrose 2 gm in 50 mls @ 100 mls/hr 01/27/25 09:00 Rocephin/D5w 2gm IV 02/03/25 08:59 QDAY ROYER Magnesium Sulfate 4 gm in 50 mls @ 12.5 mls/hr 01/27/25 07:48 Magnesium Sulfate Ivpb IV 01/27/25 11:47 X1 ONE Lisinopril 10 mg 01/26/25 12:00 01/26/25 12:29 Lisinopril 2.5 Mg Tablet PO 02/25/25 11:59 10 mg QDAY ROYER Administration Morphine Sulfate 2 mg 01/26/25 13:41 01/27/25 00:24 Morphine Sulf Inj 10 Mg/Ml Vial IVP 01/30/25 22:44 2 mg Q3H PRN Administration PAIN SCALE 4-10(Mod-Sev Ondansetron HCl 4 mg 01/25/25 22:45 01/26/25 01:59 Ondansetron Inj 2 Mg/Ml Inj 2 Ml IVP 02/24/25 22:44 4 mg Q6H PRN Administration NAUSEA OR VOMITING Protocol Pantoprazole Sodium 40 mg 01/26/25 09:00 01/26/25 08:13 Pantoprazole Inj 40 Mg Vial IVP 02/25/25 08:59 40 mg QDAY ROYER Administration Tamsulosin HCl 0.4 mg 01/26/25 12:00 01/26/25 12:29 Tamsulosin Hcl 0.4 Mg Capsule PO 02/25/25 11:59 0.4 mg QDAY ROYER Administration Thiamine HCl 100 mg 01/26/25 09:00 01/26/25 08:14 Thiamine Inj 100 Mg/Ml Vial 2 Ml IVP 02/25/25 08:59 100 mg QDAY ROYER Administration
[2025-01-27] MEDS: cefTRIAXone/D5w 2gm 2 GM/50 ML BAG IV (08:09)
[2025-01-27] MEDS: Magnesium Sulfate 4 GM Ivpb 4 GM/50 ML BAG IV (08:09)
[2025-01-27] MEDS: TAMSULOSIN HCL 0.4 MG CAPSULE PO (08:10)
[2025-01-27] MEDS: HEPARIN SOD INJ 5000 UNIT/ML VIAL SC (08:10)
[2025-01-27] MEDS: THIAMINE INJ 100 MG/ML VIAL 2 ML IVP (08:11)
--- NOTE | 2025-01-27 08:46 | PC.SS ---
Follow up note: On CWAL protocol. On IV antibiotic. Pending surgery recommendations. Pt will return home upon dc.
[2025-01-27] MEDS: NAPH,KPH MBDB 1 PACKET (1.5 GM) 2 PACKET PO (08:56)
--- NOTE | 2025-01-27 13:28 | PD.SURPROG ---
Documentation for date of: 01/27/25 Subjective Subjective Brief History: History of present illness revealed that the patient has been having chronic abdominal pain for quite some time. He said he has been having abdominal pain for the past month but it increased yesterday and therefore he came to the emergency room. He does not have any nausea or vomiting. He has not been eating well but he is drinking tall cans of beer per day for the past 4 or 5 years. He has been admitted to the emergency room multiple times with alcohol intoxication. In addition to that he also use methamphetamine. His pain is generalized but more so in the lower abdomen on both sides his other medical problem consist of hypertension on evaluation for acute appendicitis in the past and alcohol withdrawal and history of gallstone and tension headache and low back pain he said his gallstones were diagnosed in the past but he did not have any recommendation for surgery. Narrative: The patient is feeling slightly better and his abdominal pain is less. He is tolerating regular diet. Exam Vital Signs Temp Pulse Resp BP Pulse Ox O2 Del Method 97.4 F 104 H 19 165/100 H 99 Room Air 01/27/25 12:00 01/27/25 12:00 01/27/25 12:00 01/27/25 12:00 01/27/25 12:00 01/27/25 12:00 His vital signs are normal other than mild tachycardia Routine Abdominal Exam Comments: Abdominal examination still shows some diffuse tenderness in all quadrants including the epigastric region. But there is no localized tenderness in the McBurney's point Assessment & Plan Assessment Additional comments: Impression: Chronic abdominal pain No evidence of appendicitis Plan Plan: Patient is tolerating diet and therefore could be discharged.
--- NOTE | 2025-01-27 15:16 | PD.RESDS ---
Planned Discharge Date 01/27/25 DS: Providers Provider Date of admission: 01/25/25 22:45 Primary care physician: Grace Diaz MD Admitting Provider: Tony Moore MD Attending Provider on Admission: Tati Del Cid MD Consults: 01/25/25 21:34 Consult to General Surgery Stat Comment: Acute appendicitis Consulting Provider: Addi Colon 01/25/25 22:51 Referral Wound Care Routine Comment: Left great toe ulcer, tender Attending Provider on DC: Dr. Tati Del Cid MD Discharging Provider: Dr. Tati Del Cid MD Anticipated date of discharge: 01/27/25 DS: Diagnosis Problem List Completed Was Problem List Reviewed/Reconciled?: Yes Hospital Course Hospital Course Hospital course: Summary Mr. Mauro is a 49 year old male with a history of HTN, ashtma, BPH, meth abuse, and alcohol abuse who presented to [facility] ED on 01/25 for complaints of diffuse abdominal pain that is worse in his right lower quadrant along with generalized weakness. Patient was admitted for acute appendicitis. In the ED CT abdomen/pelvis was done and showed suspicion for early acute appendicitis, abdominal ultrasound showed hepatosplenomegaly and cholelithiasis. Patient received pain medication, IV antibiotics and IV fluids. Surgery was consulted and confirmed no evidence for acute appendicitis. Per surgery pt had similar picture in the past for which 3 CT abdomen done over the course of September and December. Enlarge appendix seen on every CT scan. Over the course patient clinically improved and and tolerating diet. [facility] protocol was in place. Patient counseled extensively on alcohol cessation and methamphetamine use. Throughout the hospital course patient other problems were managed and his condition improved remarkably with progression of hospital course. Further plan to discharge the patient home with antibiotics course since he is hemodynamically stable to be discharged home to self care with the following instructions. Discharge recommendation: -Complete antibiotic treatment with Ciprofloxacin and Flagyl fr 7 days. -Stop lisinopril and start Losartan daily instead -Take other medication as below -Follow up with PCP in 1-2 weeks -Return to ED if symptoms worsen If you don't have a PCP, you can make an appointment at the [facility]: [address] [place] [address] Hospital Diagnoses: #Acute appendicitis #Hyperbilirubinemia #Transaminitis #RANDELL, likely prerenal 2/2 poor oral intake (resolve) #Hypokalemia #Alcohol abuse #Meth abuse #Primary hypertension #Ulcer, left great toe Patient seen and assessed under supervision of attending physician and discuss with senior resident Dr. Del Cid PGY-2 Sangeetha Izquierdo MD PGY-1, Internal Medicine. Time spent discussing smoking cessation with patient: more than 10 minutes Time Spent with Patient Time attestation: Total time spent providing and/or coordinating discharge services: Time spent: Greater than 30 minutes Exam Vital Signs Temp Pulse Resp BP Pulse Ox O2 Del Method 97.4 F 104 H 19 165/100 H 99 Room Air 01/27/25 12:00 01/27/25 12:00 01/27/25 12:00 01/27/25 12:00 01/27/25 12:00 01/27/25 12:00 Narrative Exam General: Alert, no acute distress. Skin: Warm, dry, intact, no obvious rash. Head: Normocephalic, atraumatic. Eye: Normal conjunctiva, PERRL. Cardiovascular: Regular rate and rhythm, no murmur, +S1/S2. Respiratory: Lungs are clear to auscultation, respirations unlabored, no crackles, no wheezing. Gastrointestinal: Soft, diffusely tender to palpation which was worse in RLQ, distended (resolving). No guarding. Extremities: No edema, no cyanosis, no clubbing. 2+ radial pulse bilaterally, 2+ pedal pulse bilaterally. Slight tremors in arms. Neuro: No focal deficits observed. Conversant, moving all extremities. No overt cerebellar signs/incoordination. Psychiatric: Cooperative, appropriate affect. Discharge Plan Plan Patient Disposition: HOME (Self Care) Patient condition on transfer: Stable Care Plan Goals: -Complete antibiotic treatment with Ciprfloxacin and Flagyl fr 7 days. -Stop lisinopril and start Losartan daily instead -Take other medication as below -Follow up with PCP in 1-2 weeks -Return to ED if symptoms worsen Prescriptions/Referrals Prescriptions/Med Rec: New losartan 25 mg Tablet 25 mg PO QDAY 30 Days Qty: 30 0RF ciprofloxacin HCl 500 mg tablet 500 mg PO BID 7 Days Qty: 14 0RF metronidazole 500 mg tablet 500 mg PO BID 10 Days Qty: 20 0RF Continued amlodipine 5 mg tablet 5 mg PO QDAY MDD 1 Qty: 30 0RF metoclopramide HCl [Reglan] 10 mg tablet 10 mg PO Q6H MDD 4 PRN (Reason: nausea and vomiting) Qty: 60 0RF thiamine HCl (vitamin B1) 100 mg capsule 100 mg PO QDAY Qty: 30 0RF multivitamin Tablet 1 tab PO QDAY Qty: 30 0RF baclofen 10 mg tablet 10 mg PO Q8H PRN (Reason: muscle spasm) diclofenac sodium 1 % gel 2 g TOPICAL QDAY albuterol sulfate 90 mcg/actuation HFA aerosol inhaler 1 inh INHALATION BID PRN (Reason: bronchospasm) Patient Comments: INHALE 2 PUFF INHALED EVERY 6 HOURS NEEDED FOR COUGH tamsulosin 0.4 mg Capsule 0.4 mg PO QDAY Qty: 30 0RF Discontinued lisinopril 10 mg tablet 10 mg PO QDAY Qty: 90 0RF Referrals: Grace Diaz MD [Primary Care Provider] - Patient/Caregiver Discharge Instructions Discharge Activity: activity as tolerated Education Materials: What Is Appendicitis? Print Language: Polish Stand Alone Forms: Mayuri Award Info., Patient Portal Info Letter Discharge Order Discharge Orders: Discharge (Routine); Ordered 01/27/25 Ordered By: Jennifer Freedman Quality Discharge Quality Measures VTE prophylaxis Attestestation Attestation I Tati Del Cid MD reviewed the note and agree with the resident's assessment & plan with modifications/additions/exceptions as below. I have personally reviewed labs, imaging, home meds/prior records, examined the patient, formulated and discussed management plan with the IM team. 49-year-old male with history of HTN, asthma, BPH, methamphetamine use presented to ED with left lower quadrant pain for the past month which has progressively worsened over the past few days. CT scan did reveal concern for acute appendicitis, general surgery evaluated and recommended conservative management. RANDELL resolved, LFTs are moderately elevated however US hepatobiliary did not reveal any abnormalities. UDS positive for methamphetamine. Change antiobiotics to ciprofloxacin to flygyl. Cont amlodipine and switch lisinopril to losartan for optimal HTN control.
== END 2025-01-27 15:17 | disposition home or self-care (01) | DRG 254 ==
LOC: SERX 21:48 → SERHOLD 23:18 → S2NX 01-26 01:29
PROVIDERS: Nurse Practitioner Family; Admitting Provider Internal Medicine; Emergency Provider Emergency Medicine; PCP Family Medicine; Visit Provider Student in an Organized Health Care Education/Training Program
DX: K35.80 Unspecified acute appendicitis (principal); I10 Essential (primary) hypertension; F15.10 Other stimulant abuse, uncomplicated; Y90.8 Blood alcohol level of 240 mg/100 ml or more; E87.6 Hypokalemia; N17.9 Acute kidney failure, unspecified; L97.529 Non-pressure chronic ulcer of other part of left foot with unspecified severity; F10.229 Alcohol dependence with intoxication, unspecified; R74.01 Elevation of levels of liver transaminase levels; K80.20 Calculus of gallbladder without cholecystitis without obstruction; E86.0 Dehydration; N40.0 Benign prostatic hyperplasia without lower urinary tract symptoms; Z79.899 Other long term (current) drug therapy; J45.909 Unspecified asthma, uncomplicated; G89.29 Other chronic pain
CPT/HCPCS: 36415; 71045; 74177; 76700; 80048; 80053; 80061; 80307; 80320; 81001; 83735; 84100; 84484; 85025; 85610; 85730; 87811; 93005; 96361; 96365; 96366; 96374; 96375; 99284; A4649; J0360; J0696; J1644; J2270; J2405; J2470; J2543; J3360; J3411; J3475; J3480; J3490; J7050; J7120; Q9967; A9270; G0480; J1836

== ENCOUNTER 2025-01-28 21:02 | Emergency (ER) | payer MEDICAID, SELFPAY ==
[2025-01-28 21:07] VITALS: BP 156/100; PULSE 92; RESP 19; TEMP 36.6; O2SAT 98
[2025-01-28 21:11] VITALS: PULSE 85; RESP 18; O2SAT 98; BMI 16.7
--- NOTE | 2025-01-28 21:41 | EDNOTE_ITS ---
ED Abdominal Pain RME/HPI General Chief Complaint: Abdominal Pain Stated complaint: ABDOMINAL PAIN Time seen by provider: 01/28/25 21:36 Arrival date/time: 01/28/25 21:02 49M with history of HTN, asthma, BPH, meth abuse, and alcohol abuse presents to ED with continued ab pain. Patient was discharged yesterday for possible appy, but surgeon states it was not. Patient was discharged with ABX. Patient denies N/V. Patient just wants meds. Limitations: no limitations Related Data Home Medications ?Medication ?Instructions ?Recorded ?Confirmed albuterol sulfate 90 mcg/actuation 1 inh inhalation BI D PRN 12/26/24 01/26/25 aerosol inhaler bronchospasm baclofen 10 mg tablet 10 mg PO Q8H PRN muscle spas m 12/26/24 01/26/25 diclofenac sodium 1 % topical gel 2 g topical QDAY 01/26/25 Previous Rx's ?Medication ?Instructions ?Recorded multivitamin 1 tab PO QDAY #30 tabs 11/17 thiamine HCl (vitamin B1) 100 mg 100 mg PO QDAY #30 ca ps 11/17/24 capsule amlodipine 5 mg tablet 5 mg PO QDAY hypertension #3 0 tabs 12/17/24 metoclopramide HCl 10 mg tablet 10 mg PO Q6H PRN nause a and 12/17/24 (Reglan) vomiting #60 tabs tamsulosin 0.4 mg capsule 0.4 mg PO QDAY #30 caps 12/11 0 ciprofloxacin HCl 500 mg tablet 500 mg PO BID 7 days # 14 tabs 01/27/25 losartan 25 mg tablet 25 mg PO QDAY 30 days #30 ta bs 01/27/25 metronidazole 500 mg tablet 500 mg PO BID 10 days #20 tabs 01/27/25 Allergies Allergy/AdvReac Type Severity Reaction Status Date / Time No Known Allergies Allergy Verified 01/28/25 21:10 Review of Systems Review of Systems Systems Reviewed: All systems reviewed, normal except as documented Constitutional Constitutional: Reports system reviewed and no additional complaints, except as documented, Denies fever(s) and Denies headache(s) ENT Ears, Nose, Mouth, and Throat: Denies disequilibrium and Denies headache(s) Cardiovascular Cardiovascular: Reports system reviewed and no additional complaints, except as documented, Denies chest pain and Denies dyspnea Respiratory Respiratory: Reports system reviewed and no additional complaints, except as documented, Denies cough and Denies dyspnea Gastrointestinal Gastrointestinal: Reports system reviewed and no additional complaints, except as documented, Reports as per HPI, Reports abdominal pain, Denies nausea and Denies vomiting Neurologic Neurologic: Reports system reviewed and no additional complaints, except as documented, Denies confusion, Denies disequilibrium and Denies headache(s) Psychiatric Psychiatric: Denies confusion Past Medical History Past Medical History CARDIAC: Positive Hypertension; Negative Cardiac Disorders or Congestive Heart Failure RESPIRATORY: Negative Chronic Obstructive Pulmonary Disease (COPD) or Asthma GASTROINTESTINAL: Positive Gastrointestinal Disorders and Gall Bladder Disease GENITOURINARY: Positive Renal Disease MUSCULOSKELETAL: Positive Arthritis ENDOCRINE: Negative Diabetes Mellitus Type 1 or Diabetes Mellitus Type 2 HEMATOLOGIC: Negative Sickle Cell Disease OTHER HISTORY: Positive Falls; Negative Blood Transfusions, Anesthesia Reactions or Cancer Family History FAMILY HISTORY: Positive Family Cardiac Disorders and Family Cancer Social History SMOKING STATUS: Never smoker SECOND HAND EXPOSURE: Yes (sister including marijuana) SUBSTANCE USE: does not use ED Exam General Limitations: Present no limitations General appearance: Present alert and in no apparent distress Head Head exam: Present atraumatic Eye Eye exam: Present normal appearance, PERRL and EOMI ENT ENT exam: Present normal exam, normal oropharynx and mucous membranes moist Neck Neck exam: Present normal inspection, full ROM and trachea midline Chest Chest inspection: Present normal inspection and symmetric chest wall rise Respiratory Respiratory exam: Present normal lung sounds bilaterally Cardiovascular Cardiovascular exam: Present regular rate, normal rhythm and normal heart sounds Abdominal Exam Abdominal exam: Present soft and normal bowel sounds Extremities Exam Extremities exam: Present normal inspection and full ROM Back Exam Back exam: Present normal inspection and full ROM Neurological Exam Neurological exam: Present alert, oriented X3 and CN II-XII intact Psychiatric Psychiatric exam: Present normal affect and normal mood Skin Skin exam: Present warm, dry, intact and normal color Course Quality Measures none Orders Category Date Time Status Morphine Oral LIQUID Med 01/28/25 21:37 Once 5 mg PO X1 ONE Vital Signs Vital signs: Vital Signs Temperature 97.9 F 01/28/25 21:07 Pulse Rate 92 01/28/25 21:07 Respiratory Rate 19 01/28/25 21:07 Blood Pressure 156/100 H 01/28/25 21:07 Pulse Oximetry (%) 98 01/28/25 21:07 Oxygen Delivery Method Room Air 01/28/25 21:07 O2 at 98% on RA and WNLs Abdominal Pain MDM MDM Narrative MDM Narrative:: 49M with history of HTN, asthma, BPH, meth abuse, and alcohol abuse presents to ED with continued ab pain. Patient was discharged yesterday for possible appy, but surgeon states it was not. Patient was discharged with ABX. Patient denies N/V. Patient just wants meds. Physical exam reveals patient in NAD. Patient is afebrile, calm, and alert. 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 Patient data External records reviewed:: [facility] previous records Clinical information provided by:: patient Social determinants that could affect healthcare access:: substance use Patient has the following chronic illnesses:: HTN, asthma, BPH, meth abuse, and alcohol abuse How is presenting disease/condition affected by chronic disease/condition?: exacerbated by Evaluation data The following diagnostics were reviewed and interpreted by me:: other (specify) (none) Lab and/or radiology exams considered but not ordered:: not ordered Interpretation Summary: n/a Medications / Prescriptions Medications or Prescriptions considered but not ordered:: ordered Medication administrations:: Medication Administration History Morphine Sulfate (Morphine Sulf Liqd 10 Mg/5 Ml Udc) 5 mg PO X1 ONE Stop: 01/28/25 21:38 above Consultations Consultation(s) initiated? (list below): No Diagnosis Differential diagnosis abdominal pain: abdominal pain, acute appendicitis, calculus of kidney, constipation, diverticulitis, gastroenteritis, pancreatitis and small bowel obstruction Most likely diagnosis given after review of the tests above:: ab pain Admission Indicated Admission indicated?: not indicated Admission Request Was there a request for admission?: No Disposition Plan Disposition Plan: Discharge Discharge Attestation Discharge Attestation: The patient and all family members were given an opportunity to ask questions and understood the discharge instructions. Discharge instructions specifically effects, indications for sooner follow up or return to the emergency department, and the expected course of current diagnosis. Patient condition: Stable Discharge Plan Plan Patient Disposition: HOME (Self Care) Discharge Disposition comment: Stable Prescriptions/Referrals Prescriptions/Med Rec: No Action amlodipine 5 mg tablet 5 mg PO QDAY MDD 1 Qty: 30 0RF metoclopramide HCl [Reglan] 10 mg tablet 10 mg PO Q6H MDD 4 PRN (Reason: nausea and vomiting) Qty: 60 0RF thiamine HCl (vitamin B1) 100 mg capsule 100 mg PO QDAY Qty: 30 0RF multivitamin Tablet 1 tab PO QDAY Qty: 30 0RF baclofen 10 mg tablet 10 mg PO Q8H PRN (Reason: muscle spasm) diclofenac sodium 1 % gel 2 g TOPICAL QDAY albuterol sulfate 90 mcg/actuation HFA aerosol inhaler 1 inh INHALATION BID PRN (Reason: bronchospasm) Patient Comments: INHALE 2 PUFF INHALED EVERY 6 HOURS NEEDED FOR COUGH tamsulosin 0.4 mg Capsule 0.4 mg PO QDAY Qty: 30 0RF losartan 25 mg Tablet 25 mg PO QDAY 30 Days Qty: 30 0RF ciprofloxacin HCl 500 mg tablet 500 mg PO BID 7 Days Qty: 14 0RF metronidazole 500 mg tablet 500 mg PO BID 10 Days Qty: 20 0RF Problem List Clinical Impression: Abdominal pain Patient/Caregiver Discharge Instructions Education Materials: Abdominal Pain Additional Instructions: Please follow-up with PCP within 24-48 hours and return immediately if symptoms worsen. Finish prescribed ABX. Print Language: [place] Stand Alone Forms: Patient Portal Info Letter MANOHAR/GAYLE Supervising Physician MANOHAR/GAYLE Supervising Physician: Dr. Garcia
== END 2025-01-28 22:03 | disposition home or self-care (01) ==
LOC: SERX 21:40
PROVIDERS: Emergency Provider Emergency Medicine; PCP Family Medicine
DX: R10.9 Unspecified abdominal pain (principal); I10 Essential (primary) hypertension; J45.909 Unspecified asthma, uncomplicated; N40.0 Benign prostatic hyperplasia without lower urinary tract symptoms
CPT/HCPCS: 99282

== ENCOUNTER 2025-01-31 18:12 | Emergency (ER) | payer MEDICAID, SELFPAY ==
[2025-01-31 18:13] VITALS: BMI 30.3
[2025-01-31 19:43] VITALS: BP 151/97; PULSE 100; RESP 20; TEMP 37.4; O2SAT 96
--- NOTE | 2025-01-31 20:17 | XR_ITS ---
Examination: CT abdomen and pelvis without contrast. Coronal 3-D reconstructions. Sagittal 2-D reconstructions. Date and time of exam:January 31, 2025, 2030 hours, comparison January 25, 2025 CTDI: vol (mGy): 9.58 DLP: (mGycm): 659. Technique: Axial images of the abdomen have been obtained, 3 mm slice thickness Intravenous contrast material has not been administered. Low dose protocols were performed. One or more of the following dose reduction techniques were used; automated exposure control, adjustment of the mA and/or KV according to patient size, use of iterative reconstruction technique. Findings: No focal liver or splenic lesions, liver is irregular in contour, mild splenomegaly Cholelithiasis No pancreatic or adrenal mass Moderate left renal parenchymal scar formation No hydronephrosis renal or ureteral calculi Aorta normal size Retrocecal appendix, sagittal image 139, which is thickened, 10 mm and fluid-filled with minimal inflammatory change No pelvic abscess Mild small bowel ileus No diverticulitis Urinary bladder intact Transverse prostate dimension 5.3 cm IMPRESSION: Cholelithiasis Moderate left renal parenchymal scar formation No hydronephrosis or renal calculi Retrocecal appendix, sagittal image 139, is thickened, 10 mm, fluid-filled with minimal inflammatory change Consider early acute appendicitis, the appearance should be clinically correlated
--- NOTE | 2025-01-31 20:18 | PD.EDRME ---
Rapid Medical Screening Exam E Arrival date/time: 01/31/25 18:12 49M with history of HTN, asthma, BPH, meth abuse, and alcohol abuse presents to ED with continued ab pain. Patient was discharged recently for possible appy, but surgeon states it was not. Patient was discharged with ABX and finished them. Patient was here 2 days ago for this as well and states pain is getting worse. Chief Complaint: Abdominal Pain Vital signs: Vital Signs Temperature 99.3 F 01/31/25 19:43 Pulse Rate 100 01/31/25 19:43 Respiratory Rate 20 01/31/25 19:43 Blood Pressure 151/97 H 01/31/25 19:43 Pulse Oximetry (%) 96 01/31/25 19:43 Oxygen Delivery Method Room Air 01/31/25 19:43
[2025-01-31 20:38] LABS: Lactate (Lactic Acid) 1.6 mMol/L (0.4-2.0)
[2025-01-31 20:39] LABS: Basophils # (Auto) 0.1 Thou/mm3 (0.0-0.2); Basophils % (Auto) 1 % (0-2.5); Eosinophils # (Auto) 0.2 Thou/mm3 (0.0-0.5); Eosinophils % (Auto) 3 % (0-10); Hematocrit 40.7 % (41.0-53.0); Hemoglobin 13.1 g/dL (13.5-16.0); Immature Granulocytes Auto 0.02 Thou/mm3 (0.00-0.00); Lymphocytes # (Auto) 1.7 Thou/mm3 (1.0-4.8); Lymphocytes % (Auto) 24 % (10-50); Mean Corpuscular HGB Conc 32.2 g/dl (31.0-37.0); Mean Corpuscular Hemoglobin 28.9 pg (25.0-35.0); Mean Corpuscular Volume 90 fL (80-100); Monocytes # (Auto) 0.6 Thou/mm3 (0.0-0.8); Monocytes % (Auto) 8 % (0-12); Neutrophils # (Auto) 4.5 Thou/mm3 (1.8-7.7); Neutrophils % (Auto) 64 % (37-80); Nucleated Red Blood Cell # 0.00 Thou/mm3 (0.00-0.00); Nucleated Red Blood Cell % 0 /100 WBC (0); Platelet Count 179 Thou/mm3 (140-440); RDW Standard Deviation 48.0 fL (35.1-43.9); Red Blood Count 4.54 Miln/mm3 (4.50-5.90); White Blood Count 7.1 Thou/mm3 (3.8-10.6)
[2025-01-31 21:10] LABS: Alanine Aminotransferase 78 U/L (10-49); Albumin, Serum 4.9 gm/dL (3.5-5.0); Albumin/Globulin Ratio 1.4 (1.2-2.2); Alcohol, Blood Medical 317.8 mg/dL (0-10.0); Alkaline Phosphatase 302 U/L (46-116); Anion Gap 17 (7-16); Aspartate Amino Transferase 222 U/L (0-34); BUN/Creatinine Ratio 9 Ratio (12-20); Bilirubin,Total 0.6 mg/dL (0.3-1.2); Blood Urea Nitrogen 9 mg/dL (9-23); Calcium 9.4 mg/dL (8.3-10.6); Calcium (Corrected) 9.4 mg/dL (8.5-10.1); Carbon Dioxide 22.9 mMol/L (20.0-31.0); Chloride 108 mMol/L (98-107); Creatinine (Component) 1.0 mg/dL (0.6-1.3); Estimated Creatinine Clearance 110.8 mL/min (>60); Globulin 3.4 gm/dL (2.3-3.5); Glucose 110 mg/dL (74-106); Lipase 43 U/L (12-53); Osmolality,Calculated 293 (275-295); Potassium 3.2 mMol/L (3.4-5.1); Procalcitonin 0.23 ng/ml (0.0-0.49); Sodium 148 mMol/L (136-145); Total Protein 8.3 gm/dL (5.7-8.2); eGFR > 60 See Note
--- NOTE | 2025-01-31 22:21 | PC.NURSE ---
pt in lobby cursing at security and ems staff walking by. die designer asked pt if he gave urine sample yet, pt replied have you peed yet ?
[2025-02-01 01:04] VITALS: BP 161/101; PULSE 91; RESP 16; TEMP 37.1; O2SAT 96
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
[2025-02-01 01:44] LABS: Collection Type, Urine Clean Catch
[2025-02-01 01:57] LABS: Bilirubin,Urine Negative (Negative); Blood,Urine Negative (Negative); Clarity,Urine Clear (Clear/Hazy); Color,Urine Yellow (Lt Yel-Yel); Culture Indicated,Urine Not Indicated; Glucose, Urine Negative (Negative); Hyaline Casts,Urine 2 /hpf (0-1); Ketones,Urine Negative (Negative); Leukocyte Esterase,Urine Negative (Negative); Nitrite,Urine Negative (Negative); PH,Urine 6.0 (5.0-7.0); Protein,Urine 1+ (Neg - Trace); RBC,Urine 2 /hpf (0-3); Specific Gravity,Urine 1.025 (1.001-1.035); Squamous Epithelial Cell,Urine < 1 /hpf (0-5); Urobilinogen,Urine Negative mg/dL (0.0-1.0); WBC,Urine 1 /hpf (0-5)
[2025-02-01 01:58] LABS: Amphetamine/Methamp Scrn,U Positive (Negative); Barbiturate Screen,Urine Negative (Negative); Benzodiazepines Screen,Urine Positive (Negative); Benzoylecgonine Screen, Ur Negative (Negative); Fentanyl Screen,Urine Negative (Negative); Opiate Screen,Urine Negative (Negative); THC Screen,Urine Negative (Negative)
[2025-02-01 02:00] VITALS: BP 146/84; PULSE 87; RESP 17; TEMP 36.9; O2SAT 98
== END 2025-02-01 02:31 | disposition home or self-care (01) ==
PROVIDERS: Physician Assistant; Emergency Provider Emergency Medicine
DX: K80.20 Calculus of gallbladder without cholecystitis without obstruction (principal); F10.129 Alcohol abuse with intoxication, unspecified; Y90.8 Blood alcohol level of 240 mg/100 ml or more; I10 Essential (primary) hypertension; N40.0 Benign prostatic hyperplasia without lower urinary tract symptoms; F15.10 Other stimulant abuse, uncomplicated; M06.9 Rheumatoid arthritis, unspecified; K64.9 Unspecified hemorrhoids
CPT/HCPCS: 36415; 74176; 80053; 80307; 80320; 81001; 83605; 83690; 84145; 85025; 96374; 99283; J2470; G0480

== ENCOUNTER 2025-02-05 20:24 | Inpatient (IN) | payer MEDICAID, SELFPAY ==
[2025-02-05 20:27] VITALS: BP 192/116; PULSE 110; PULSE 89; RESP 19; RESP 22; TEMP 37.3; O2SAT 100; O2SAT 98; BMI 30.3
--- NOTE | 2025-02-05 20:27 | PD.EDABDPN ---
ED Abdominal Pain RME/HPI General Chief Complaint: Abdominal Pain Stated complaint: ABD PAIN Arrival date/time: 02/05/25 20:24 RME / HPI RME / HPI narrative: Dr. Arriaga?[facility] Main ED Evaluation: 49yo male who is well-known to this ED after presenting multiple times for alcohol and methamphetamine abuse, with known cholelithiasis now presents for the third time in 2 weeks. Patient had been diagnosed with possible retrocecal appendiceal inflammatory change, surgical consultation obtained on 01/26/25, who recommended antibiotic therapy currently presenting with complaints of suspected appendicitis after he had contacted EMS. Related Data Home Medications ?Medication ?Instructions ?Recorded ?Confirmed albuterol sulfate 90 mcg/actuation 1 inh inhalation BID PRN 12/26/24 01/26/25 aerosol inhaler bronchospasm baclofen 10 mg tablet 10 mg PO Q8H PRN muscle spasm 12/26/24 01/26/25 diclofenac sodium 1 % topical gel 2 g topical QDAY 12/26/24 01/26/25 Previous Rx's ?Medication ?Instructions ?Recorded multivitamin 1 tab PO QDAY #30 tabs 11/17/24 thiamine HCl (vitamin B1) 100 mg 100 mg PO QDAY #30 caps 11/17/24 capsule amlodipine 5 mg tablet 5 mg PO QDAY hypertension #30 tabs 12/17/24 metoclopramide HCl 10 mg tablet 10 mg PO Q6H PRN nausea and 12/17/24 (Reglan) vomiting #60 tabs tamsulosin 0.4 mg capsule 0.4 mg PO QDAY #30 caps 12/29/24 losartan 25 mg tablet 25 mg PO QDAY 30 days #30 tabs 01/27/25 metronidazole 500 mg tablet 500 mg PO BID 10 days #20 tabs 01/27/25 pantoprazole 40 mg tablet,delayed 40 mg PO QDAY #30 tabs 02/01/25 release (Protonix) Allergies Allergy/AdvReac Type Severity Reaction Status Date / Time No Known Allergies Allergy Verified 01/31/25 18:14 Review of Systems Review of Systems Systems Reviewed: All systems reviewed, normal except as documented Past Medical History Past Medical History CARDIAC: Positive Hypertension; Negative Cardiac Disorders or Congestive Heart Failure RESPIRATORY: Negative Chronic Obstructive Pulmonary Disease (COPD) or Asthma GASTROINTESTINAL: Positive Gastrointestinal Disorders, Gall Bladder Disease and Hemorrhoids GENITOURINARY: Positive Renal Disease MUSCULOSKELETAL: Positive Arthritis and Rheumatoid Arthritis ENDOCRINE: Negative Diabetes Mellitus Type 1 or Diabetes Mellitus Type 2 HEMATOLOGIC: Negative Sickle Cell Disease OTHER HISTORY: Positive Falls; Negative Blood Transfusions, Anesthesia Reactions or Cancer Family History FAMILY HISTORY: Positive Family Cardiac Disorders and Family Cancer Social History SMOKING STATUS: Never smoker SECOND HAND EXPOSURE: Yes (sister including marijuana) SUBSTANCE USE: does not use ED Exam Narrative Physical exam: GENERAL APPEARANCE: alert and oriented x 4, chronically-ill appearing, no acute distress VITALS: All vitals were reviewed and the pulse ox is 100% on room air, which is normal according to my interpretation. HEENT: Normocephalic, atraumatic; pupils equal, round, reactive to light; EOMI; mucous membranes pink, moist; oropharynx clear NECK: Supple LUNGS: CTABL; no wheezes, no rales, no rhonchi HEART: Regular rate, regular rhythm; normal S1, S2; no murmurs ABDOMEN: non distended; soft, marked abdominal tenderness at the RLQ, no guarding, + Rovsign sign BACK: no CVA tenderness EXTREMITIES: atraumatic; no edema NEUROLOGIC: awake; alert and oriented x4; cranial nerves II-XII grossly intact; no focal sensory or motor deficits PSYCHIATRIC: appropriate mood and affect SKIN: warm, dry, normal color; no rashes Course Quality Measures none Orders Category Date Time Status EKG (ED ONLY) *Do not use* NOW Care 02/05/25 21:06 Active EKG (ED Only) Stat Exams 02/05/25 21:06 Ordered B-Type Natriuretic Peptide Stat Lab 02/05/25 21:00 Completed CBC Stat Lab 02/05/25 21:00 Completed CRP [C-Reactive Protein] Stat Lab 02/05/25 21:00 Completed Comprehensive Metabolic Panel Stat Lab 02/05/25 21:00 Completed Drug Screen,Urine Stat Lab 02/05/25 21:06 Ordered ESR [Sed Rate (ESR)] Stat Lab 02/05/25 21:00 Completed Lipase Stat Lab 02/05/25 21:00 Completed Magnesium Stat Lab 02/05/25 21:00 Completed Urinalysis, C/S if Indicated Stat Lab 02/05/25 21:06 Ordered Morphine Inj Med 02/05/25 21:11 Discontinued 4 mg IVP X1 ONE Ondansetron Inj [Zofran Inj] Med 02/05/25 21:11 Discontinued 4 mg IVP X1 ONE Sodium Chloride 0.9% 1000 ml [Ns] 1,000 ml Med 02/05/25 21:07 Discontinued IV 999 mls/hr hydrALAZINE INJ [Apresoline Inj] Med 02/06/25 00:01 Discontinued 10 mg IVP X1 ONE Vital Signs Vital signs: Vital Signs Temperature 99.1 F 02/05/25 20: Pulse Rate 89 02/05/25 20: Respiratory Rate 19 02/05/25 20: Blood Pressure 192/116 H 02/05/25 20:27 Pulse Oximetry (%) 100 02/05/25 20:27 Abdominal Pain MDM MDM Narrative MDM Narrative:: Scribe Attestation: 02/05/25 - Kelly Muñoz am scribing for and in the presence of Dr. Arriaga. 49yo male who is well-known to this ED after presenting multiple times for alcohol and methamphetamine abuse, with known cholelithiasis now presents for the third time in 2 weeks. Patient had been diagnosed with possible retrocecal appendiceal inflammatory change, surgical consultation obtained on 01/26/25, who recommended antibiotic therapy currently presenting with complaints of suspected appendicitis after he had contacted EMS. Please see PE findings. Lab markers demonstrate normal WBC count, chronic anemia with Hgb 11, no left shift or bandemia. Chemistries with evidence of hypokalemia with K 3.0 and mildly elevated blood sugar of 123. Tox screen positive for benzodiazepines and methamphetamines. Patient placed on laboratory monitor, IV established. Patient received low-dose narcotic analgesic/antiemetics with [id number] relieve. On review of the medical records, indicates patient has had multiple CT scans within the last [address] scan on 12/26 was unremarkable. Both subsequent scans demonstrate early appendicitis and will defer repeat scan at this time. General surgery agrees to consult in the AM. Hospitalist consulted and agrees to admit the patient. Patient data External records reviewed:: [facility] previous records (Per chart review, patient was seen here on 02/01/25 for abdominal pain.) and EMS form Clinical information provided by:: patient Social determinants that could affect healthcare access:: alcohol use Patient has the following chronic illnesses:: HTN, alcohol abuse How is presenting disease/condition affected by chronic disease/condition?: uneffected by Evaluation data The following diagnostics were reviewed and interpreted by me:: lab results Lab and/or radiology exams considered but not ordered:: none Interpretation Summary: See MDM. Medications / Prescriptions Medications or Prescriptions considered but not ordered:: none Medication administrations:: Medication Administration History Discontinued Medications Hydralazine HCl (Hydralazine Inj 20 Mg/Ml Vial) 10 mg IVP X1 ONE Stop: 02/06/25 00:02 Sodium Chloride (Ns) 1,000 mls @ 999 mls/hr IV .Q1H1M ONE Stop: 02/05/25 22:07 Last Infusion: 02/05/25 23:03 Dose: Infused Documented By: Admin: 02/05/25 21:28 Dose: 999 mls/hr Documented By: TM Morphine Sulfate (Morphine Sulf Inj 10 Mg/Ml Vial) 4 mg IVP X1 ONE Stop: 02/05/25 21:12 Last Admin: 02/05/25 21:42 Dose: 4 mg Documented By: TM Ondansetron HCl (Ondansetron Inj 2 Mg/Ml Inj 2 Ml) 4 mg IVP X1 ONE; Protocol Stop: 02/05/25 21:12 Last Admin: 02/05/25 21:42 Dose: 4 mg Documented By: TM see above Consultations Consultation(s) initiated? (list below): Yes Consultation #1 (Physician, Specialty, Details): Discussed case with Dr. Blood from general surgery regarding consultation. Discussed patients ED course, exam findings, labs, and radiology results. Agrees to consult. Time: 23:55 Consultation #2 (Physician, Specialty, Details): Discussed case with Dr. Lee, the resident physician, attending Dr. Moore from Hospitalist service regarding admission. Discussed patients ED course, exam findings, labs, and radiology results. The Hospitalist agrees to accept the patient for admission. Time: 23:59 Diagnosis Differential diagnosis abdominal pain: acute appendicitis, diverticulitis and pancreatitis Most likely diagnosis given after review of the tests above:: see clinical impression below Admission Indicated Admission indicated?: indicated Admission Request Was there a request for admission?: Yes Admission Attestation Admission request attestation: Discussed case with [] from Hospitalist service regarding admission. Discussed patients ED course, exam findings, labs, and radiology results. The Hospitalist [agrees,declines] to accept the patient for admission. Disposition Plan Disposition Plan: Admit Discharge Plan Plan Patient Disposition: Admit Acute Care w/in Hospital Prescriptions/Referrals Prescriptions/Med Rec: No Action amlodipine 5 mg tablet 5 mg PO QDAY MDD 1 Qty: 30 0RF metoclopramide HCl [Reglan] 10 mg tablet 10 mg PO Q6H MDD 4 PRN (Reason: nausea and vomiting) Qty: 60 0RF thiamine HCl (vitamin B1) 100 mg capsule 100 mg PO QDAY Qty: 30 0RF multivitamin Tablet 1 tab PO QDAY Qty: 30 0RF baclofen 10 mg tablet 10 mg PO Q8H PRN (Reason: muscle spasm) diclofenac sodium 1 % gel 2 g TOPICAL QDAY albuterol sulfate 90 mcg/actuation HFA aerosol inhaler 1 inh INHALATION BID PRN (Reason: bronchospasm) Patient Comments: INHALE 2 PUFF INHALED EVERY 6 HOURS NEEDED FOR COUGH tamsulosin 0.4 mg Capsule 0.4 mg PO QDAY Qty: 30 0RF losartan 25 mg Tablet 25 mg PO QDAY 30 Days Qty: 30 0RF metronidazole 500 mg tablet 500 mg PO BID 10 Days Qty: 20 0RF pantoprazole [Protonix] 40 mg tablet,delayed release (DR/EC) 40 mg PO QDAY Qty: 30 0RF Referrals: No Primary/Family,Physician [Primary Care Provider] - In 1 week Problem List Clinical Impression: Chronic appendicitis Patient/Caregiver Discharge Instructions Print Language: Andorran Stand Alone Forms: [employer] Award Info., Patient Portal Info Letter
--- NOTE | 2025-02-05 20:35 | PC.NURSE ---
DAVID TIRADO [place] [facility]. ON ARRIVAL PT WAS VERBALLY ABUSE TO ED STAFF, EMS STAFF, AND FIRE DEPARTMENT. PT WAS ASKED MULTIPLE TIMES TO STOP CUSSING AND YELLING. PT REFUSED TO QUIET DOWN. [facility] [employer] REDIRECTED PT MULTIPLE TIMES AND STATED IF HE CONTINUOUS ACTING INAPPROPRIATE HE WILL BE ESCORTED OFF THE PREMISES
--- NOTE | 2025-02-05 20:39 | PC.NURSE ---
PT ON ARRIVAL VERY VERBALLY ABUSIVE TOWARD STAFF. PT ASKED TO TRY AND REMAIN CALM AND HE CONTINUED WITH FOUL LANGUAGE DIRECTED TO FEMALE STAFF. DR LOPEZ SPOKE WITH PT AND PT CONTINUED TO BE VERBALLY ABUSIVE TO THE DR. PT PLACED IN ROOM 6 AND PT REFUSES TO SPEAK WITH DR AT THIS TIME.
[2025-02-05] MEDS: SODIUM CHLORIDE 0.9% 1000 ML 1,000 ML 999 ML IV (21:28)
[2025-02-05] MEDS: MORPHINE SULF INJ 10 MG/ML VIAL 4 MG IVP (21:42)
[2025-02-05] MEDS: ONDANSETRON INJ 2 MG/ML INJ 2 ML 4 MG IVP (21:42)
[2025-02-05 21:47] LABS: Basophils # (Auto) 0.0 Thou/mm3 (0.0-0.2); Basophils % (Auto) 1 % (0-2.5); Eosinophils # (Auto) 0.2 Thou/mm3 (0.0-0.5); Eosinophils % (Auto) 4 % (0-10); Hematocrit 34.3 % (41.0-53.0); Hemoglobin 11.0 g/dL (13.5-16.0); Immature Granulocytes Auto 0.02 Thou/mm3 (0.00-0.00); Lymphocytes # (Auto) 1.0 Thou/mm3 (1.0-4.8); Lymphocytes % (Auto) 21 % (10-50); Mean Corpuscular HGB Conc 32.1 g/dl (31.0-37.0); Mean Corpuscular Hemoglobin 28.5 pg (25.0-35.0); Mean Corpuscular Volume 89 fL (80-100); Monocytes # (Auto) 0.4 Thou/mm3 (0.0-0.8); Monocytes % (Auto) 8 % (0-12); Neutrophils # (Auto) 3.0 Thou/mm3 (1.8-7.7); Neutrophils % (Auto) 66 % (37-80); Nucleated Red Blood Cell # 0.00 Thou/mm3 (0.00-0.00); Nucleated Red Blood Cell % 0 /100 WBC (0); Platelet Count 124 Thou/mm3 (140-440); RDW Standard Deviation 46.4 fL (35.1-43.9); Red Blood Count 3.86 Miln/mm3 (4.50-5.90); White Blood Count 4.6 Thou/mm3 (3.8-10.6)
[2025-02-05 21:54] LABS: Sed Rate (ESR) 34 mm/hr (0-20)
[2025-02-05 22:14] LABS: B-Type Natriuretic Peptide 36 pg/mL (0-100)
[2025-02-05 22:22] LABS: Alanine Aminotransferase 58 U/L (10-49); Albumin, Serum 4.3 gm/dL (3.5-5.0); Albumin/Globulin Ratio 1.7 (1.2-2.2); Alkaline Phosphatase 303 U/L (46-116); Anion Gap 12 (7-16); Aspartate Amino Transferase 171 U/L (0-34); BUN/Creatinine Ratio 10 Ratio (12-20); Bilirubin,Total 0.5 mg/dL (0.3-1.2); Blood Urea Nitrogen 10 mg/dL (9-23); C-Reactive Protein < 0.5 mg/dL (0.0-0.9); Calcium 9.2 mg/dL (8.3-10.6); Calcium (Corrected) 9.2 mg/dL (8.5-10.1); Carbon Dioxide 27.0 mMol/L (20.0-31.0); Chloride 112 mMol/L (98-107); Creatinine (Component) 1.0 mg/dL (0.6-1.3); Estimated Creatinine Clearance 110.8 mL/min (>60); Globulin 2.6 gm/dL (2.3-3.5); Glucose 123 mg/dL (74-106); Lipase 49 U/L (12-53); Magnesium 1.8 mg/dL (1.6-2.6); Osmolality,Calculated 299 (275-295); Potassium 3.0 mMol/L (3.4-5.1); Sodium 151 mMol/L (136-145); Total Protein 6.9 gm/dL (5.7-8.2); eGFR > 60 See Note
--- NOTE | 2025-02-05 23:19 | PC.NURSE ---
Pt uncooperative at this time. Refusing vitals, refusing to wear pt wristband, is verbally aggressive to staff. Pt lying on gurney at this time.
[2025-02-06] VITALS (12 sets, daily range): BP systolic 127–193; BP diastolic 45–104; PULSE 70–99; RESP 14–19; TEMP 36.2–37.1; O2SAT 90–97
--- NOTE | 2025-02-06 00:33 | ESHP_ITS ---
<Statement entered by Tony Moore MD - 02/06/25 12:47> I have discussed and was present for the essential components of the history, physical examination, diagnosis, and treatment plan with the resident. I agree with the patient's care as documented by the resident and amended herein by me. Tony Moore MD FACP. Documentation for date of: 02/06/25 HPI History of Present Illness Chief complaint: Abdominal pain History of present illness: 49 y/o M with PMHx significant for HTN, alcohol abuse, methamphetamine abuse presents with chief complaint of abdominal pain for approximately 10 days. Patient initially presented 01/26/2025, was diagnosed with early appendicitis based on CT findings. Evaluated in the ED by general surgery who recommended patient be treated with outpatient antibiotics. Patient states he began to antibiotics but stopped after a couple days, unclear reasons why. Since then pain is continued to increase, mostly localized to right lower quadrant, with associated fevers, shortness of breath. Denies nausea, vomiting, chest pain, dysuria. ED COURSE: Labs significant for: WBC 4.6, hemoglobin 11. Sodium 151, T. bili 0.5, AST 171, ALT 58, ALP 303. ESR 34, CRP negative. Lipase negative. Imaging significant for: CT A/P on 01/31 showed thickened appendix with inflammatory changes. Patient evaluated in the ED, given 1 L bolus normal saline, morphine, hydralazine. Dr Blood consulted by ED, recommended admission and eval in the morning. Of note, patient was reportedly verbally abusive with staff. PMH: HTN, alcohol abuse, meth abuse PSH: None SH: Denies tobacco or illicit drug use despite history of positive methamphetamines and U-Tox. Reports drinking 18 cans of beer daily. Allergies:?NKDA Medications: Patient unsure of his medications, is noncompliant with them. Review of Systems Review of Systems Systems Reviewed: All systems reviewed, normal except as documented Past Medical History Past Medical History Comments PMH COMMENT: PMH: HTN, alcohol abuse, meth abuse PSH: None SH: Denies tobacco or illicit drug use despite history of positive methamphetamines and U-Tox. Reports drinking 18 cans of beer daily. Allergies:?NKDA Medications: Patient unsure of his medications, is noncompliant with them. Exam Vital Signs Temp Pulse Resp BP Pulse Ox 99.1 F 89 19 192/116 H 100 02/05/25 20:27 02/05/25 20:27 02/05/25 20:27 02/05/25 20:27 02/05/25 20:27 Narrative Exam PE: Gen: Well-developed and well-nourished. Diaphoretic. HEENT: NCAT, PERRLA, EOMI, MMM. Conjunctival injection. CVS: normal S1 and S2. RRR. No M/R/G. Resp: CTA B/L. No rhonchi, rales, crackles or wheezing. Abd: soft. BS+ in all 4 quadrants. Mild abdominal distention, diffuse tenderness most predominant in right lower quadrant. MSK: Good ROM in BUE & BLE. No rash. 1+ pitting edema bilateral ankles. Neuro: CN II-XII grossly intact. Strength 5/5 in BUE & BLE. Alert and oriented x3. Psych: appropriate mood and affect. Results: Labs 02/05/25 21:00 02/05/25 21:00 Labs: Short CBC 02/05/25 Range/Units 21:00 WBC 4.6 (3.8-10.6) Thou/mm3 Hgb 11.0 L D (13.5-16.0) g/dL Hct 34.3 L (41.0-53.0) % Plt Count 124 L D (140-440) Thou/mm3 BMP 02/05/25 21:00 Sodium 151 H Potassium 3.0 L Chloride 112 H Carbon Dioxide 27.0 BUN 10 Creatinine 1.0 Glucose 123 H Calcium 9.2 Liver Function 02/05/25 Range/Units 21:00 Total Bilirubin 0.5 (0.3-1.2) mg/dL AST 171 H (0-34) U/L ALT 58 H (10-49) U/L Alkaline Phosphatase 303 H (46-116) U/L Albumin 4.3 (3.5-5.0) gm/dL Quality Measures Quality Measures VTE prophylaxis Medications Home Medications and Allergies Home Medications ?Medication ?Instructions ?Recorded ?Confirmed ?Type albuterol sulfate 90 mcg/actuation 1 inh inhalation BI D PRN 12/26/24 01/26/25 History aerosol inhaler bronchospasm baclofen 10 mg tablet 10 mg PO Q8H PRN muscle spas m 12/26/24 01/26/25 History diclofenac sodium 1 % topical gel 2 g topical QDAY 01/26/25 History Allergies Allergy/AdvReac Type Severity Reaction Status Date / Time No Known Allergies Allergy Verified 01/31/25 18:14 Visit Medications Acetaminophen (Acetaminophen Supp 650 Mg Supp) 650 mg LA Q6HR PRN PRN Reason: Fever > 100.4 Stop: 03/08/25 00:28 Enoxaparin Sodium (Enoxaparin Sod Inj 40 Mg/0.4 Ml Syringe) 40 mg SC QDAY [facility] Stop: 02/20/25 08:59 Ceftriaxone Sodium 2 gm/ (Sodium Chloride) 50 mls @ 100 mls/hr IV QDAY [facility] Stop: 02/13/25 00:30 Metronidazole (Flagyl 500 Mg Iv) 500 mg in 100 mls @ 200 mls/hr IV Q8HR [facility] Stop: 02/13/25 00:30 Morphine Sulfate (Morphine Sulf Inj 10 Mg/Ml Vial) 2 mg IVP Q2H PRN PRN Reason: PAIN SCALE 7-10 (Severe Stop: 02/11/25 00:28 Ondansetron HCl (Ondansetron Inj 2 Mg/Ml Inj 2 Ml) 4 mg IVP Q6H PRN; Protocol PRN Reason: NAUSEA OR VOMITING Stop: 03/08/25 00:28 Discontinued Medications Hydralazine HCl (Hydralazine Inj 20 Mg/Ml Vial) 10 mg IVP X1 ONE Stop: 02/06/25 00:02 Sodium Chloride (Ns) 1,000 mls @ 999 mls/hr IV .Q1H1M ONE Stop: 02/05/25 22:07 Last Infusion: 02/05/25 23:03 Dose: Infused Morphine Sulfate (Morphine Sulf Inj 10 Mg/Ml Vial) 4 mg IVP X1 ONE Stop: 02/05/25 21:12 Last Admin: 02/05/25 21:42 Dose: 4 mg Ondansetron HCl (Ondansetron Inj 2 Mg/Ml Inj 2 Ml) 4 mg IVP X1 ONE; Protocol Stop: 02/05/25 21:12 Last Admin: 02/05/25 21:42 Dose: 4 mg Assessment & Plan Plan 49 y/o M with PMHx significant for HTN, alcohol abuse, methamphetamine abuse presents with chief complaint of abdominal pain for approximately 10 days, admitted for appendicitis. #Appendicitis Patient presented on 01/26 with abdominal pain, based on CT scans was diagnosed with early appendicitis. Eval by surgery at the time recommended treatment with outpatient antibiotics. Patient did not complete antibiotic course, presents today with increased abdominal pain, most predominant in right lower quadrant. Dr Blood consulted by ED, recommends admission and to eval in the morning. Patient notes he has had fevers and shortness of breath recently, notably diaphoretic on exam. - N.p.o. - General Surgery consulted, appreciate recommendations - Ceftriaxone 2 g IV daily (started 02/06) - Flagyl 500 mg IV every 8 hours (started 02/06) - Morphine 2 mg IV every 2 hours as needed for severe pain - IVF: LR at 100 mL/h x 1 L #Alcohol abuse Patient history as stated. Reports drinking 18 cans of beer daily. Has not stopped drinking due to abdominal pain. Notably diaphoretic on exam, but denies hallucinations, no tremors noted. - CIWA - Telemetry #HTN Patient history as stated. Patient noncompliant with medications. While in ED, SBP ghislaine to 192, received hydralazine. - Avoid aggressive management pending procedure - Begin adequate regimen while inpatient - [employer] patient regarding compliance with medications #Methamphetamine abuse Patient history of meth abuse, denies any use of drugs but has had positive U tox in the past. - [employer] patient regarding addiction services DVT prophylaxis: Lovenox GI prophylaxis: None Diet: N.p.o. Lines: Peripheral IV Code status: Full code Plan of care discussed with attending Dr. Moore. Harshil Lee MD PGY?2
[2025-02-06] MEDS: cefTRIAXone 2 GM in SODIUM CHLORIDE 0.9% (Popper) 50 ML IV ×2 (02:01→21:01)
[2025-02-06] MEDS: hydrALAZINE INJ 20 MG/ML VIAL 10 MG IVP (02:15)
[2025-02-06] MEDS: ONDANSETRON INJ 2 MG/ML INJ 2 ML 4 MG IVP ×2 (02:16→08:30)
[2025-02-06] MEDS: MORPHINE SULF INJ 10 MG/ML VIAL 2 MG IVP (02:16)
[2025-02-06] MEDS: metroNIDAZOLE/NS 500 MG IVPB 500 MG/100 ML BAG 200 MG IV ×4 (02:31→22:47)
[2025-02-06] MEDS: RINGERS LACTATED 1000 ML 1,000 ML 100 ML IV (03:04)
[2025-02-06] MEDS: DIAZEPAM INJ 5 MG/ML VIAL 2 ML 2.5 MG IVP (04:17)
[2025-02-06 05:25] LABS: Basophils # (Auto) 0.0 Thou/mm3 (0.0-0.2); Basophils % (Auto) 1 % (0-2.5); Eosinophils # (Auto) 0.1 Thou/mm3 (0.0-0.5); Eosinophils % (Auto) 3 % (0-10); Hematocrit 32.6 % (41.0-53.0); Hemoglobin 10.4 g/dL (13.5-16.0); Immature Granulocytes Auto 0.01 Thou/mm3 (0.00-0.00); Lymphocytes # (Auto) 0.7 Thou/mm3 (1.0-4.8); Lymphocytes % (Auto) 18 % (10-50); Mean Corpuscular HGB Conc 31.9 g/dl (31.0-37.0); Mean Corpuscular Hemoglobin 28.9 pg (25.0-35.0); Mean Corpuscular Volume 91 fL (80-100); Monocytes # (Auto) 0.3 Thou/mm3 (0.0-0.8); Monocytes % (Auto) 8 % (0-12); Neutrophils # (Auto) 2.8 Thou/mm3 (1.8-7.7); Neutrophils % (Auto) 70 % (37-80); Nucleated Red Blood Cell # 0.00 Thou/mm3 (0.00-0.00); Nucleated Red Blood Cell % 0 /100 WBC (0); Platelet Count 86 Thou/mm3 (140-440); RDW Standard Deviation 47.7 fL (35.1-43.9); Red Blood Count 3.60 Miln/mm3 (4.50-5.90); White Blood Count 3.9 Thou/mm3 (3.8-10.6)
[2025-02-06 05:42] LABS: INR 1.1 (0.9-1.3); Partial Thromboplastin Time 27.4 Seconds (22.0-36.0); Prothrombin Time 11.7 Seconds (9.0-12.2)
[2025-02-06 06:26] LABS: Alanine Aminotransferase 50 U/L (10-49); Albumin, Serum 4.0 gm/dL (3.5-5.0); Albumin/Globulin Ratio 1.7 (1.2-2.2); Alkaline Phosphatase 261 U/L (46-116); Anion Gap 14 (7-16); Aspartate Amino Transferase 134 U/L (0-34); BUN/Creatinine Ratio 11 Ratio (12-20); Bilirubin,Total 0.7 mg/dL (0.3-1.2); Blood Urea Nitrogen 8 mg/dL (9-23); Calcium 8.4 mg/dL (8.3-10.6); Calcium (Corrected) 8.4 mg/dL (8.5-10.1); Carbon Dioxide 23.9 mMol/L (20.0-31.0); Chloride 106 mMol/L (98-107); Creatinine (Component) 0.7 mg/dL (0.6-1.3); Estimated Creatinine Clearance 158.3 mL/min (>60); Globulin 2.4 gm/dL (2.3-3.5); Glucose 89 mg/dL (74-106); Magnesium 1.4 mg/dL (1.6-2.6); Osmolality,Calculated 284 (275-295); Phosphorous 2.9 mg/dL (2.4-5.1); Potassium 3.1 mMol/L (3.4-5.1); Sodium 144 mMol/L (136-145); Total Protein 6.4 gm/dL (5.7-8.2); eGFR > 60 See Note
[2025-02-06 06:46] LABS: Collection Type, Urine Clean Catch
[2025-02-06 06:58] LABS: Bilirubin,Urine Negative (Negative); Blood,Urine Negative (Negative); Clarity,Urine Clear (Clear/Hazy); Color,Urine Yellow (Lt Yel-Yel); Culture Indicated,Urine Not Indicated; Glucose, Urine Negative (Negative); Hyaline Casts,Urine 1 /hpf (0-1); Ketones,Urine Negative (Negative); Leukocyte Esterase,Urine Negative (Negative); Nitrite,Urine Negative (Negative); PH,Urine 6.5 (5.0-7.0); Protein,Urine Trace (Neg - Trace); RBC,Urine 1 /hpf (0-3); Specific Gravity,Urine 1.019 (1.001-1.035); Squamous Epithelial Cell,Urine < 1 /hpf (0-5); Urobilinogen,Urine Negative mg/dL (0.0-1.0); WBC,Urine 1 /hpf (0-5)
[2025-02-06 07:06] LABS: Amphetamine/Methamp Scrn,U Positive (Negative); Barbiturate Screen,Urine Negative (Negative); Benzodiazepines Screen,Urine Negative (Negative); Benzoylecgonine Screen, Ur Negative (Negative); Fentanyl Screen,Urine Negative (Negative); Opiate Screen,Urine Positive (Negative); THC Screen,Urine Negative (Negative)
[2025-02-06] MEDS: NIFEdipine XL 30 MG TABCR PO ×2 (08:30→08:31)
--- NOTE | 2025-02-06 09:18 | ESPR_ITS ---
<Statement entered by Lisa Harrington MD - 02/06/25 17:10> I have reviewed the note and agree with the resident's assessment & plan with exceptions as below. I have personally reviewed labs, imaging, home meds/prior records, examined the patient, formulated and discussed management plan with the IM team. Patient examined at bedside today. Patient currently admitted for appendicitis, he is refusing surgery at this time. Will continue the IV antibiotics at this time, will transition to oral and likely discharge tomorrow or within the next 48 hours. Repeat hematology and chemistry in AM. Continue CIWA protocol and manage hypertensive urgency with oral p.o. and IV as needed antihypertensives. Referral to professor of social work due to urine drug screen showing meth which has been seen previously. Lisa Harrington, PGY-2 Internal Medicine Documentation for date of: 02/06/25 Subjective Subjective Interval history: Patient examined bedside. Confirmed narrative from night team's HPI (did not complete abx, has RLQ pain, with associated fever and SOB). Endorses vomiting yesterday and ongoing nausea, as well as, abdominal pain. Today he tells the interviewer he thinks he does not want surgery, stating that Dr. Blood gave him abx so maybe he could try antibiotics. Interviewer defers treatment plan to Dr. Blood but educates the patient the treatment plan may have changed such as risks and benefits of antibiotics one week ago vs today in regards to the safest plan considering surgery vs antibiotics. UDS + meth and opiates. Exam Vital Signs Temp Pulse Resp BP Pulse Ox O2 Del Method 97.2 F 85 19 193/102 H 95 Room Air 02/06/25 08:04 02/06/25 08:31 02/06/25 08:04 02/06/25 08:31 02/06/25 08:04 02/06/25 08:04 Narrative Exam PE: Gen: Appears to be in discomfort as well as opiate intoxicated. Well-developed and well-nourished. Sleepy/fatigued diaphoretic. HEENT: NCAT, PERRLA, EOMI, MMM. Conjunctival injection. CVS: normal S1 and S2. RRR. No M/R/G. Resp: CTA B/L. No rhonchi, rales, crackles or wheezing. Abd: soft. BS+ in all 4 quadrants. Mild abdominal distention, diffuse tenderness most predominant in right lower quadrant. Rovsing + Obturator sign -, psoas sign - MSK: Good ROM in BUE & BLE. No rash. 1+ pitting edema bilateral ankles. Neuro: CN II-XII grossly intact. Strength 5/5 in BUE & BLE. Alert and oriented x3. Psych: appropriate mood and affect. Objective Labs 02/07/25 06:14 02/07/25 06:14 Labs: Laboratory Results - last 24 hr 02/05/25 02/06/25 02/06/25 21:00 04:54 06:37 WBC 4.6 3.9 RBC 3.86 L 3.60 L Hgb 11.0 L D 10.4 L Hct 34.3 L 32.6 L MCV 89 91 MCH 28.5 28.9 MCHC 32.1 31.9 RDW Std Deviation 46.4 H 47.7 H Plt Count 124 L D 86 L D Neut % (Auto) 66 70 Lymph % (Auto) 21 18 Smith % (Auto) 8 8 Eos % (Auto) 4 3 Baso % (Auto) 1 1 Neut # (Auto) 3.0 2.8 Lymph # (Auto) 1.0 0.7 L Smith # (Auto) 0.4 0.3 Eos # (Auto) 0.2 0.1 Baso # (Auto) 0.0 0.0 Immature Gran # (Auto) 0.02 H 0.01 H Absolute Nucleated RBC 0.00 0.00 Immature Gran % 0 0 Nucleated RBC % 0 0 ESR 34 H PT 11.7 INR 1.1 APTT 27.4 Sodium 151 H 144 Potassium 3.0 L 3.1 L Chloride 112 H 106 Carbon Dioxide 27.0 23.9 Anion Gap 12 14 BUN 10 8 L Creatinine 1.0 0.7 Estim Creat Clear Calc 110.8 158.3 eGFR > 60 > 60 BUN/Creatinine Ratio 10 L 11 L Glucose 123 H 89 Calculated Osmolality 299 H 284 Calcium 9.2 8.4 Corrected Calcium 9.2 8.4 L Phosphorus 2.9 Magnesium 1.8 1.4 L Total Bilirubin 0.5 0.7 AST 171 H 134 H ALT 58 H 50 H Alkaline Phosphatase 303 H 261 H D C-Reactive Prot, Quant < 0.5 B-Natriuretic Peptide 36 Total Protein 6.9 6.4 Albumin 4.3 4.0 Globulin 2.6 2.4 Albumin/Globulin Ratio 1.7 1.7 Lipase 49 Ur Collection Type Clean Catch Urine Color Yellow Urine Clarity Clear Urine pH 6.5 Ur Specific [place] 1.019 Urine Protein Trace Urine Glucose (UA) Negative Urine Ketones Negative Urine Blood Negative Urine Nitrite Negative Urine Bilirubin Negative Urine Urobilinogen (Auto) Negative Ur Leukocyte Esterase Negative Urine RBC 1 Urine WBC 1 Ur Squamous Epith Cells < 1 Urine Bacteria None Hyaline Casts 1 Ur Culture Indicated? Not Indicated Urine Opiates Screen Positive A Urine Fentanyl Screen Negative Ur Barbiturates Screen Negative U Amphetamin/Meth Scrn Positive A U Benzodiazepines Scrn Negative U Cocaine Metab Screen Negative U Marijuana (THC) Screen Negative Quality Measures Quality Measures VTE prophylaxis Assessment & Plan Assessment Current Active Medications: Generic Name Dose Route Start Last Admin Trade Name Freq PRN Reason Stop Dose Admin Acetaminophen 650 mg 02/06/25 00:29 Acetaminophen Supp 650 Mg Supp LA 03/08/25 00:28 Q6HR PRN Fever > 100.4 Diazepam 2.5 mg 02/06/25 00:29 02/06/25 04:17 Diazepam Inj 5 Mg/Ml Vial 2 Ml IVP 02/11/25 00:28 2.5 mg Q2HR PRN Administration CIWA SCORE 8-13 Diazepam 5 mg 02/06/25 00:29 Diazepam Inj 5 Mg/Ml Vial 2 Ml IVP 02/11/25 00:28 Q2HR PRN CIWA SCORE 14-19 Diazepam 10 mg 02/06/25 00:29 Diazepam Inj 5 Mg/Ml Vial 2 Ml IVP 02/11/25 00:28 Q2HR PRN CIWA SCORE 20-25 Diazepam 10 mg 02/06/25 00:29 Diazepam Inj 5 Mg/Ml Vial 2 Ml IVP X1 PRN Breakthrough Agitation Enoxaparin Sodium 40 mg 02/06/25 09:00 02/06/25 08:33 Enoxaparin Sod Inj 40 Mg/0.4 Ml Syringe SC 02/20/25 08:59 Not Given QDAY ROYER Metronidazole 500 mg in 100 mls @ 200 mls/hr 02/06/25 00:31 02/06/25 07:08 Flagyl 500 Mg Iv IV 02/13/25 00:30 Infused Q8HR ROYER Infusion Lactated Ringer's 1,000 mls @ 100 mls/hr 02/06/25 00:32 02/06/25 03:04 Lactated Ringers IV 02/06/25 10:31 100 mls/hr .Q10H ONE Administration Ceftriaxone Sodium 2 gm/ 50 mls @ 100 mls/hr 02/06/25 21:00 Sodium Chloride IV 02/13/25 20:59 HS ROYER Potassium Chloride 10 meq in 100 mls @ 100 mls/hr 02/06/25 08:28 02/06/25 08:33 Kcl Ivpb IV 02/06/25 09:27 Not Given Q1H ONE Morphine Sulfate 2 mg 02/06/25 00:29 02/06/25 02:16 Morphine Sulf Inj 10 Mg/Ml Vial IVP 02/11/25 00:28 2 mg Q2H PRN Administration PAIN SCALE 7-10 (Severe Nifedipine 30 mg 02/06/25 08:20 02/06/25 08:31 Nifedipine Xl 30 Mg Tabcr PO 03/08/25 08:19 30 mg QDAY ROYER Administration Ondansetron HCl 4 mg 02/06/25 00:29 02/06/25 08:30 Ondansetron Inj 2 Mg/Ml Inj 2 Ml IVP 03/08/25 00:28 4 mg Q6H PRN Administration NAUSEA OR VOMITING Protocol Plan 49 y/o M with PMHx significant for HTN, alcohol abuse, methamphetamine abuse presents with chief complaint of abdominal pain for approximately 10 days, admitted for appendicitis. Awaiting Dr. Blood decision for surgery #Appendicitis Patient presented on 01/26 with abdominal pain, based on CT scans was diagnosed with early appendicitis. Eval by surgery at the time recommended treatment with outpatient antibiotics. Patient did not complete antibiotic course, presents today with increased abdominal pain, most predominant in right lower quadrant. Dr Blood consulted by ED, recommends admission and to eval in the morning. Patient notes he has had fevers and shortness of breath recently, notably diaphoretic on exam. - N.p.o. - General Surgery consulted, appreciate recommendations - Ceftriaxone 2 g IV daily (started 02/06) - Flagyl 500 mg IV every 8 hours (started 02/06) - Morphine 2 mg IV every 2 hours as needed for severe pain - IVF: LR at 100 mL/h x 1 L #Alcohol abuse Patient history as stated. Reports drinking 18 cans of beer daily. Has not stopped drinking due to abdominal pain. Notably diaphoretic on exam, but denies hallucinations, no tremors noted. - CIWA - Telemetry #HTN Patient history as stated. Patient noncompliant with medications. While in ED, SBP ghislaine to 192, received hydralazine. 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 Lines: Peripheral IV Code status: Full code Plan of care discussed with attending Dr. Hayes. Rodri Christian MD PGY?1 Attending Provider Attestation/Addendum I reviewed labs, imaging, EKG, home medications and prior available records. Face to face evaluation was performed by me. I have personally examined the patient and discussed assessment and plan with the IM team. I reviewed the resident note and agree with the plan with exceptions as below. Chronic appendicitis Uncontrolled hypertension Hypertensive urgency Noncompliance Methamphetamine abuse Started ceftriaxone/Flagyl Patient declined surgery Will continue antibiotics IV for another 24 hours then discharged on oral antibiotics Ensure medication compliance Avoid methamphetamine use
--- NOTE | 2025-02-06 11:01 | ESCONSULT_ITS ---
HPI Consult details Consult date: 02/06/25 Reason for consultation narrative: Abdominal pain, chronic appendicitis History of present illness: 49-year-old male with history of hypertension, alcohol use disorder and methamphetamine use was admitted with abdominal pain. His symptoms started yesterday with right lower quadrant abdominal pain with some nausea. He denies vomiting, fever or chills. He has had chronic pain and has had multiple visits to the emergency department where CT scan revealed thickening of appendix with possible periappendiceal inflammatory reaction. He was treated with antibiotic during last hospitalization. Past Medical History Surgical History OTHER SURGICAL HX: No surgeries in the past Meds Home Medications and Allergies Home Medications ?Medication ?Instructions ?Recorded ?Confirmed ?Type albuterol sulfate 90 mcg/actuation 1 inh inhalation BI D PRN 12/26/24 02/06/25 History aerosol inhaler bronchospasm baclofen 10 mg tablet 10 mg PO Q8H PRN muscle spas m 12/26/24 02/06/25 History Allergies Allergy/AdvReac Type Severity Reaction Status Date / Time No Known Allergies Allergy Verified 01/31/25 18:14 Exam Vital Signs Temp Pulse Resp BP Pulse Ox O2 Del Method 97.2 F 85 19 193/102 H 95 Room Air 02/06/25 08:04 02/06/25 08:31 02/06/25 08:04 02/06/25 08:31 02/06/25 08:04 02/06/25 08:04 Constitutional Constitutional: no acute distress Routine Abdominal Exam Abdominal: Present soft, normoactive bowel sounds and tenderness (Right lower quadrant tenderness to deep palpation, no rebound tenderness or peritonitis); Absent distended Results Results: Laboratory Laboratory results: results reviewed Results: Imaging CT scan - abdomen: report reviewed and image reviewed CT scan - pelvis: report reviewed and image reviewed Assessment & Plan Plan Patient has had multiple visits for right lower quadrant pain and symptoms most likely related to chronic appendicitis. I recommended laparoscopic appendectomy. However, patient does not wish to proceed with surgical intervention and wishes to be treated with antibiotic. I explained to him that his symptoms may recur and he may get septic if he develops ruptured appendicitis. He voiced understanding and still does not wish to proceed with surgical intervention. Patient can be discharged from surgical standpoint.
[2025-02-07] VITALS: BP 144/86; PULSE 88; PULSE 92; RESP 18; TEMP 36.6; O2SAT 97
[2025-02-07 04:00] VITALS: BP 128/80; PULSE 83; PULSE 87; RESP 18; TEMP 36.8; O2SAT 96
[2025-02-07] MEDS: metroNIDAZOLE/NS 500 MG IVPB 500 MG/100 ML BAG 200 MG IV (05:53)
[2025-02-07 06:00] VITALS: BMI 30.3
[2025-02-07 07:01] LABS: Basophils # (Auto) 0.0 Thou/mm3 (0.0-0.2); Basophils % (Auto) 1 % (0-2.5); Eosinophils # (Auto) 0.2 Thou/mm3 (0.0-0.5); Eosinophils % (Auto) 2 % (0-10); Hematocrit 36.8 % (41.0-53.0); Hemoglobin 11.9 g/dL (13.5-16.0); Immature Granulocytes Auto 0.03 Thou/mm3 (0.00-0.00); Lymphocytes # (Auto) 0.7 Thou/mm3 (1.0-4.8); Lymphocytes % (Auto) 9 % (10-50); Mean Corpuscular HGB Conc 32.3 g/dl (31.0-37.0); Mean Corpuscular Hemoglobin 28.4 pg (25.0-35.0); Mean Corpuscular Volume 88 fL (80-100); Monocytes # (Auto) 0.6 Thou/mm3 (0.0-0.8); Monocytes % (Auto) 7 % (0-12); Neutrophils # (Auto) 6.2 Thou/mm3 (1.8-7.7); Neutrophils % (Auto) 81 % (37-80); Nucleated Red Blood Cell # 0.00 Thou/mm3 (0.00-0.00); Nucleated Red Blood Cell % 0 /100 WBC (0); Platelet Count 107 Thou/mm3 (140-440); RDW Standard Deviation 44.2 fL (35.1-43.9); Red Blood Count 4.19 Miln/mm3 (4.50-5.90); White Blood Count 7.7 Thou/mm3 (3.8-10.6)
[2025-02-07 07:13] LABS: INR 1.1 (0.9-1.3); Partial Thromboplastin Time 26.8 Seconds (22.0-36.0); Prothrombin Time 11.9 Seconds (9.0-12.2)
[2025-02-07 07:21] LABS: Alanine Aminotransferase 47 U/L (10-49); Albumin, Serum 4.3 gm/dL (3.5-5.0); Albumin/Globulin Ratio 1.4 (1.2-2.2); Alkaline Phosphatase 281 U/L (46-116); Anion Gap 9 (7-16); Aspartate Amino Transferase 100 U/L (0-34); BUN/Creatinine Ratio 9 Ratio (12-20); Bilirubin,Total 1.4 mg/dL (0.3-1.2); Blood Urea Nitrogen 7 mg/dL (9-23); Calcium 9.0 mg/dL (8.3-10.6); Calcium (Corrected) 9.0 mg/dL (8.5-10.1); Carbon Dioxide 27.2 mMol/L (20.0-31.0); Chloride 102 mMol/L (98-107); Creatinine (Component) 0.8 mg/dL (0.6-1.3); Estimated Creatinine Clearance 138.6 mL/min (>60); Globulin 3.0 gm/dL (2.3-3.5); Glucose 94 mg/dL (74-106); Magnesium 1.4 mg/dL (1.6-2.6); Osmolality,Calculated 273 (275-295); Phosphorous 2.0 mg/dL (2.4-5.1); Potassium 3.5 mMol/L (3.4-5.1); Sodium 138 mMol/L (136-145); Total Protein 7.3 gm/dL (5.7-8.2); eGFR > 60 See Note
[2025-02-07 07:51] VITALS: BP 147/87; PULSE 86; RESP 18; TEMP 36.2; O2SAT 96
[2025-02-07 08:00] VITALS: PULSE 83
[2025-02-07 08:53] VITALS: BP 147/87; PULSE 86
[2025-02-07] MEDS: HYDROcodone/APAP 5/325 TABLET 1 TAB PO (08:53)
[2025-02-07] MEDS: NIFEdipine XL 30 MG TABCR PO (08:53)
[2025-02-07] MEDS: ENOXAPARIN SOD INJ 40 MG/0.4 ML SYRINGE SC (08:54)
[2025-02-07] MEDS: Magnesium Sulfate 4 GM Ivpb 4 GM/50 ML BAG IV (08:54)
--- NOTE | 2025-02-07 08:56 | XR_ITS ---
Examination: Abdomen sonogram, Limited Date and time of exam: February 07, 2025, 1047 hours INDICATIONS: Elevated total bilirubin on laboratory examination February 07, 2025. Technique: Real-time cortes scale transabdominal sonographic images of the upper abdomen obtained. Findings: Contracted gallbladder, cholelithiasis, no gallbladder wall edema Normal common bile duct 0.3 cm. Pancreatic head 3.5 cm Liver 19.7 cm lobular contour fatty infiltration no discrete focal liver lesions Normal hepatopedal portal venous oh. Patent IVC IMPRESSION: Cholelithiasis, negative for cholecystitis Normal common bile duct 0.3 cm Moderate hepatomegaly primary hepatocellular disease fatty infiltration no focal liver lesions
[2025-02-07] MEDS: DIAZEPAM INJ 5 MG/ML VIAL 2 ML 2.5 MG IVP (09:27)
[2025-02-07] MEDS: SOD PHOS ADDITIVE 15 MMOL in SODIUM CHLORIDE 0.9% 250 ML 250 ML 62.5 MMOL IV (09:27)
[2025-02-07] MEDS: ONDANSETRON INJ 2 MG/ML INJ 2 ML 4 MG IVP (09:55)
--- NOTE | 2025-02-07 10:32 | PD.RESPRO ---
Documentation for date of: 02/07/25 Subjective Subjective Interval history: I/O: -2715, Breathing fine on RA. Patient examined bedside, reports feeling good . No BM yet. Endorses ongoing abdominal pain 7-8/10 dull pain. Asks about more morphine states it wasn't much . Denies chest pain, SOB, symptoms. Exam Vital Signs Temp Pulse Resp BP Pulse Ox O2 Del Method 97.2 F 86 18 147/87 H 96 Room Air 02/07/25 07:51 02/07/25 08:53 02/07/25 07:51 02/07/25 08:53 02/07/25 07:51 02/07/25 07:51 Narrative Exam PE: Gen: Appears comfortable. Well-developed and well-nourished. No longer diaphoretic HEENT: NCAT, PERRLA, EOMI, MMM. Conjunctival injection. CVS: normal S1 and S2. RRR. No M/R/G. Resp: CTA B/L. No rhonchi, rales, crackles or wheezing. Abd: soft. BS+ in all 4 quadrants. nondistended, diffuse hypogastric tenderness most predominant in right lower quadrant. Rovsing + Obturator sign +, psoas sign - MSK: Good ROM in BUE & BLE. No rash. No pedal edema Neuro: CN II-XII grossly intact. Strength 5/5 in BUE & BLE. Alert and oriented x3. Psych: appropriate mood and affect. +Neuropsychiatric agitation, +1 tremors Objective Labs 02/07/25 06:14 02/07/25 06:14 Labs: Laboratory Results - last 24 hr 02/07/25 06:14 WBC 7.7 D RBC 4.19 L Hgb 11.9 L Hct 36.8 L MCV 88 MCH 28.4 MCHC 32.3 RDW Std Deviation 44.2 H Plt Count 107 L D Neut % (Auto) 81 H Lymph % (Auto) 9 L [place] % (Auto) 7 Eos % (Auto) 2 Baso % (Auto) 1 Neut # (Auto) 6.2 Lymph # (Auto) 0.7 L [place] # (Auto) 0.6 Eos # (Auto) 0.2 Baso # (Auto) 0.0 Immature Gran # (Auto) 0.03 H Absolute Nucleated RBC 0.00 Immature Gran % 0 Nucleated RBC % 0 PT 11.9 INR 1.1 APTT 26.8 Sodium 138 Potassium 3.5 Chloride 102 Carbon Dioxide 27.2 Anion Gap 9 BUN 7 L Creatinine 0.8 Estim Creat Clear Calc 138.6 eGFR > 60 BUN/Creatinine Ratio 9 L Glucose 94 Calculated Osmolality 273 L Calcium 9.0 Corrected Calcium 9.0 Phosphorus 2.0 L Magnesium 1.4 L Total Bilirubin 1.4 H D AST 100 H ALT 47 Alkaline Phosphatase 281 H D Total Protein 7.3 Albumin 4.3 Globulin 3.0 Albumin/Globulin Ratio 1.4 Quality Measures Quality Measures VTE prophylaxis Assessment & Plan Assessment Current Active Medications: Generic Name Dose Route Start Last Admin Trade Name Freq PRN Reason Stop Dose Admin Acetaminophen 650 mg 02/06/25 00:29 Acetaminophen Supp 650 Mg Supp HI 03/08/25 00:28 Q6HR PRN Fever > 100.4 Hydrocodone Bitart/Acetaminophen 1 tab 02/07/25 08:16 02/07/25 08:53 Hydrocodone/Apap 5/325 Tablet PO 02/12/25 08:15 1 tab Q6HR PRN Administration PAIN Diazepam 2.5 mg 02/06/25 00:29 02/07/25 09:27 Diazepam Inj 5 Mg/Ml Vial 2 Ml IVP 02/11/25 00:28 2.5 mg Q2HR PRN Administration CIWA SCORE 8-13 Diazepam 5 mg 02/06/25 00:29 Diazepam Inj 5 Mg/Ml Vial 2 Ml IVP 02/11/25 00:28 Q2HR PRN CIWA SCORE 14-19 Diazepam 10 mg 02/06/25 00:29 Diazepam Inj 5 Mg/Ml Vial 2 Ml IVP 02/11/25 00:28 Q2HR PRN CIWA SCORE 20-25 Diazepam 10 mg 02/06/25 00:29 Diazepam Inj 5 Mg/Ml Vial 2 Ml IVP X1 PRN Breakthrough Agitation Enoxaparin Sodium 40 mg 02/06/25 09:00 02/07/25 08:54 Enoxaparin Sod Inj 40 Mg/0.4 Ml Syringe SC 02/20/25 08:59 40 mg QDAY ROYER Administration Metronidazole 500 mg in 100 mls @ 200 mls/hr 02/06/25 00:31 02/07/25 05:53 Flagyl 500 Mg Iv IV 02/13/25 00:30 200 mls/hr Q8HR ROYER Administration Ceftriaxone Sodium 2 gm/ 50 mls @ 100 mls/hr 02/06/25 21:00 02/06/25 21:01 Sodium Chloride IV 02/13/25 20:59 100 mls/hr HS ROYER Administration Sodium Phosphate 15 mmol/ 255 mls @ 62.5 mls/hr 02/07/25 08:12 02/07/25 09:27 Sodium Chloride IV 02/07/25 12:16 62.5 mls/hr X1 ONE Administration Magnesium Sulfate 4 gm in 50 mls @ 12.5 mls/hr 02/07/25 08:12 02/07/25 08:54 Magnesium Sulfate Ivpb IV 02/07/25 12:11 12.5 mls/hr X1 ONE Administration Nifedipine 30 mg 02/06/25 08:20 02/07/25 08:53 Nifedipine Xl 30 Mg Tabcr PO 03/08/25 08:19 30 mg QDAY ROYER Administration Ondansetron HCl 4 mg 02/06/25 00:29 02/07/25 09:55 Ondansetron Inj 2 Mg/Ml Inj 2 Ml IVP 03/08/25 00:28 4 mg Q6H PRN Administration NAUSEA OR VOMITING Protocol Plan 49 y/o M with PMHx significant for HTN, alcohol abuse, methamphetamine abuse presents with chief complaint of abdominal pain for approximately 10 days, admitted for appendicitis. Patient refused surgery and requests antibiotics treatment. Plan for 2 days of IV antibiotics with 7-10 total days of treatment in combination with PO. #Appendicitis Patient presented on 01/26 with abdominal pain, based on CT scans was diagnosed with early appendicitis. Eval by surgery at the time recommended treatment with outpatient antibiotics. Patient did not complete antibiotic course, presents today with increased abdominal pain, most predominant in right lower quadrant. Dr Blood consulted by ED, recommends admission and to eval in the morning. Patient notes he has had fevers and shortness of breath recently, notably diaphoretic on exam. No longer diaphoretic, improved discomfort (02/07). - N.p.o. - General Surgery consulted, appreciate recommendations - Ceftriaxone 2 g IV daily (started 02/06) - Flagyl 500 mg IV every 8 hours (started 02/06) - Morphine 2 mg IV every 2 hours as needed for severe pain - IVF: LR at 100 mL/h x 1 L #HTN Patient history as stated. Patient noncompliant with medications. While in ED, SBP ghislaine to 192, received hydralazine. 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 Positive for opiates on UDS and postivie for benzos a few days ago. Reports drinking 18 cans of beer daily. Has not stopped drinking due to abdominal pain. Notably diaphoretic on exam, but denies hallucinations, no tremors noted. Improved diaphoresis, superficial tremors on exam. Patient requesting more opioids. 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 Hayes. Rodri Christian MD PGY?1 Attending Provider Attestation/Addendum I reviewed labs, imaging, EKG, home medications and prior available records. Face to face evaluation was performed by me. I have personally examined the patient and discussed assessment and plan with the IM team. I reviewed the resident note and agree with the plan with exceptions as below. Chronic appendicitis Uncontrolled hypertension Hypertensive urgency Noncompliance Methamphetamine abuse Started ceftriaxone/Flagyl Patient declined surgery Will continue antibiotics IV for another 24 hours then discharged on oral antibiotics Ensure medication compliance Avoid methamphetamine use
--- NOTE | 2025-02-07 10:49 | PC.NURSE ---
PATIENT IS ALERT AND ORIENTED X4 TRANSFER TO ULTRASOUND VIA WHEELCHAIR.
--- NOTE | 2025-02-07 11:03 | PC.SS ---
Anthony Mauro is a 49 year-old male admitted to [facility] for Appendicitis. SS conducted bedside contact with the patient to complete initial assessment and to discuss discharge planning. Role and reason explained. Patient confirmed demographic information. Patient identifies his daughter Milan Goddard as his surrogate decision maker. Pt states he is able to complete all ADL?s independent. Pt does not possesses any DME. Pts PCP is [facility]. Pharmacy of choice is [facility]. Discharge options discussed and the pt wishes to return home.? Pt will provide transport. No further intervention required at this time, social work nurse would be available to address any further concerns. DC Plan: Home Contact: Dillon Yates Address: Confirmed on face sheet PCP: Raysa
--- NOTE | 2025-02-07 11:11 | PC.NURSE ---
PATIENT BACK FROM ULTRASOUND HE IS ALERT AND ORIENTED X4.
--- NOTE | 2025-02-07 11:21 | PC.NURSE ---
PATIENT TO BE DC AFTER SOD PHOS AND MAG IS COMPLETE.
--- NOTE | 2025-02-07 11:29 | ESDS_ITS ---
<Statement entered by Lisa Harrintgon MD - 02/07/25 14:48> I have reviewed the note and agree with the resident's assessment & plan with exceptions as below. I have personally reviewed labs, imaging, home meds/prior records, examined the patient, formulated and discussed management plan with the IM team. Patient examined at bedside today. Patient refused surgery for appendectomy yesterday. Patient will continue with oral antibiotics upon discharge. It was emphasized with patient to complete the full course of antibiotic (augmentin) and to return to ED if symptoms worsen or return. Patient was then discharged with the following instructions listed below. Lisa Harrington, PGY-2 Internal Medicine Planned Discharge Date 02/07/25 DS: Providers Provider Date of admission: 02/06/25 00:29 Primary care physician: Physician No Primary/Family Admitting Provider: Tony Moore MD Attending Provider on Admission: Abdirashid Hayes MD Consults: 02/06/25 08:23 Consult to General Surgery Stat Comment: apppenddicitis Consulting Provider: Moose Blood Attending Provider on DC: Abdirashid Hayes MD Discharging Provider: Abdirashid Hayes MD DS: Diagnosis Problem List Completed Was Problem List Reviewed/Reconciled?: Yes Hospital Course Hospital Course Hospital course: 49 y/o M with PMHx significant for HTN, alcohol abuse, methamphetamine abuse presents with chief complaint of abdominal pain for approximately 10 days, admitted for appendicitis. In the ED he was verbally abusive to staff, he had alcoholic transaminitis AST 171, ALT 58, ALP 303. CTAP: Retrocecal appendix, sagittal image 139, is thickened, 10 mm, fluid-filled with minimal inflammatory change. treated with 1 L bolus NS. General surgery Dr. Blood consulted. In the hospital he was made NPO and declined surgery in preference for antibiotics. Abdominal US showed cholelithiasis, negative for cholecystitis, normal CBD: 0.3, Moderate hepatomegaly primary hepatocellular disease fatty infiltration no focal liver lesions. He was started on CIWA protocols and given nifedpine 30mg for hypertension. Ceftriaxone and flagyl were started and completed over the course of two days. Discharge Instructions: Follow-up with your PCP within 1 week Take your antibiotic, Augmentin, as prescribed Take your medicines as prescribed Return to ED if your symptoms worsen or return #Acute Appendicitis #Alcohol abuse #HTN #Methamphetamine abuse Patient's plan and care discussed with my attending, Dr. Hayes and my senior resident, MD Rodri Wells MD Internal Medicine PGY-1 Time Spent with Patient Time attestation: Total time spent providing and/or coordinating discharge services: Time spent: Greater than 30 minutes Exam Vital Signs Temp Pulse Resp BP Pulse Ox O2 Del Method 97.2 F 86 18 147/87 H 96 Room Air 02/07/25 07:51 02/07/25 08:53 02/07/25 07:51 02/07/25 08:53 02/07/25 07:51 02/07/25 07:51 Narrative Exam Gen: Appears comfortable. Well-developed and well-nourished.No diaphoresis HEENT: NCAT, PERRLA, EOMI, MMM. Conjunctival injection. CVS: normal S1 and S2. RRR. No M/R/G. Resp: CTA B/L. No rhonchi, rales, crackles or wheezing. Abd: soft. BS+ in all 4 quadrants. Nondistended, TTP in the hypogastrium MSK: Good ROM in BUE & BLE. No rash. No edema Neuro: CN II-XII grossly intact. Strength 5/5 in BUE & BLE. Alert and oriented x3. Psych: appropriate mood and affect. Discharge Plan Plan Patient Disposition: HOME (Self Care) Patient condition on transfer: Stable Care Plan Goals: Discharge instructions Follow-up with your PCP within 1 week Take your antibiotic, Augmentin, as prescribed Take your medicines as prescribed Return to ED if your symptoms worsen or return Prescriptions/Referrals Prescriptions/Med Rec: New amoxicillin-pot clavulanate 875-125 mg tablet 1 tab PO BID 12 Days Qty: 24 0RF Rx Instructions: Take one tablet by mouth twice a day Continued amlodipine 5 mg tablet 5 mg PO QDAY MDD 1 Qty: 30 0RF thiamine HCl (vitamin B1) 100 mg capsule 100 mg PO QDAY Qty: 30 0RF multivitamin Tablet 1 tab PO QDAY Qty: 30 0RF baclofen 10 mg tablet 10 mg PO Q8H PRN (Reason: muscle spasm) albuterol sulfate 90 mcg/actuation HFA aerosol inhaler 1 inh INHALATION BID PRN (Reason: bronchospasm) Patient Comments: INHALE 2 PUFF INHALED EVERY 6 HOURS NEEDED FOR COUGH tamsulosin 0.4 mg Capsule 0.4 mg PO QDAY Qty: 30 0RF losartan 25 mg Tablet 25 mg PO QDAY 30 Days Qty: 30 0RF pantoprazole [Protonix] 40 mg tablet,delayed release (DR/EC) 40 mg PO QDAY Qty: 30 0RF Discontinued metronidazole 500 mg tablet 500 mg PO BID 10 Days Qty: 20 0RF Referrals: No Primary/Family,Physician [Primary Care Provider] - Patient/Caregiver Discharge Instructions Discharge Activity: activity as tolerated Education Materials: What Is Appendicitis?, Preventing Surgical Site Infections Print Language: Malay Stand Alone Forms: [facility] Info., Patient Portal Info Letter Discharge Order Discharge Orders: Discharge (Routine); Ordered 02/07/25 Ordered By: Lisa Harrington Quality Discharge Quality Measures VTE prophylaxis MD Attestestation MD Attestation I reviewed labs, imaging, EKG, home medications and prior available records. Face to face evaluation was performed by me. I have personally examined the patient and discussed assessment and plan with the IM team. I reviewed the resident note and agree with the plan with exceptions as below. Chronic appendicitis Uncontrolled hypertension Hypertensive urgency Noncompliance Methamphetamine abuse Started ceftriaxone/Flagyl Patient declined surgery Will discharge on oral Augmentin for 10 days Ensure medication compliance Avoid methamphetamine use Time spent is 33 minutes. More than 50% of the time was spent on patient education and coordination of care.
[2025-02-07 12:00] VITALS: BP 137/83; PULSE 71; PULSE 80; RESP 18; TEMP 36.2; O2SAT 96
== END 2025-02-07 15:00 | disposition home or self-care (01) | DRG 254 ==
LOC: SERX 02-06 00:09 → SERHOLD 02-06 01:24 → S3SX 02-06 08:06
PROVIDERS: Admitting Provider Internal Medicine; Emergency Provider Emergency Medicine; Visit Provider Student in an Organized Health Care Education/Training Program
DX: K35.80 Unspecified acute appendicitis (principal); I10 Essential (primary) hypertension; I16.0 Hypertensive urgency; F10.10 Alcohol abuse, uncomplicated; K80.20 Calculus of gallbladder without cholecystitis without obstruction; Z53.20 Procedure and treatment not carried out because of patient's decision for unspecified reasons; E87.6 Hypokalemia; Z91.148 Patient's other noncompliance with medication regimen for other reason; F15.10 Other stimulant abuse, uncomplicated
CPT/HCPCS: 36415; 76705; 80053; 80307; 81001; 83690; 83735; 83880; 84100; 85025; 85610; 85652; 85730; 86140; 87081; 93005; 93225; 96361; 96365; 96375; 96376; 99284; J0360; J0696; J1650; J2270; J2405; J3360; J3475; J3490; J7030; J7050; J7120; A9270; J1836

== ENCOUNTER 2025-02-27 22:47 | Emergency (ER) | payer MEDICAID, SELFPAY ==
[2025-02-27 22:52] VITALS: PULSE 98; RESP 18; O2SAT 96
[2025-02-27 22:56] VITALS: BMI 30.3
[2025-02-28 00:15] VITALS: BP 184/102; PULSE 98; RESP 17; TEMP 36.6; O2SAT 96
--- NOTE | 2025-02-28 00:27 | EDRME_ITS ---
Rapid Medical Screening Exam [facility] Arrival date/time: 02/27/25 22:47 50M with history of HTN, asthma, BPH, meth/alcohol abuse, and chronic appendicitis (patient refuses surgery) presents to ED with continued ab pain. Patient has still been drinking. Patient wants to talk to SS in the morning because I don't know what to do anymore. Chief Complaint: Abdominal Pain Vital signs: Vital Signs Temperature 97.9 F 02/28/25 00:15 Pulse Rate 98 02/28/25 00:15 Respiratory Rate 17 02/28/25 00:15 Blood Pressure 184/102 H 02/28/25 00:15 Pulse Oximetry (%) 96 02/28/25 00:15 Oxygen Delivery Method Room Air 02/28/25 00:15
--- NOTE | 2025-02-28 00:46 | PC.NURSE ---
SECURITY SAW PT DRINKING ALCOHOL IN THE ER LOBBY . SECURITY INFORMED HIM TO STOP, INSTEAD OF STOPPING PT SAID HE WILL LEAVE ER.
== END 2025-02-28 00:47 | disposition left against medical advice (07) ==
PROVIDERS: Emergency Provider Emergency Medicine
DX: R10.9 Unspecified abdominal pain (principal); Z53.29 Procedure and treatment not carried out because of patient's decision for other reasons
CPT/HCPCS: 99283

== ENCOUNTER 2025-03-01 18:30 | Inpatient (IN) | payer MEDICAID, SELFPAY ==
[2025-03-01 18:32] VITALS: PULSE 100; O2SAT 96
[2025-03-01 18:35] VITALS: BMI 31.6
[2025-03-01 18:54] VITALS: BP 144/88; PULSE 95; RESP 18; TEMP 37.1; O2SAT 95
--- NOTE | 2025-03-01 19:14 | EDNOTE_ITS ---
ED Alcohol RME/HPI General Chief Complaint: General Adult/Misc Complain Stated Complaint: TROUBLE WALKING AFTER DRINKING ETOH Time Seen by Provider: 03/01/25 18:34 Arrival date/time: 03/01/25 18:30 RME / HPI RME / HPI narrative: See MDM for Dr. Garcia's HPI Documentation. Last drink: Just Prior to Arrival Chronic alcohol use: Yes Previous visits for alcohol intoxication: Yes Recent trauma: No Treatments prior to arrival: none Related Data Home Medications ?Medication ?Instructions ?Recorded ?Confirmed albuterol sulfate 90 mcg/actuation 1 inh inhalation BI D PRN 12/26/24 03/02/25 aerosol inhaler bronchospasm Held on 03/02/25. Instructions: stooped all meds because he drinks alcohol baclofen 10 mg tablet 10 mg PO Q8H PRN muscle spas m 12/26/24 03/02/25 Held on 03/02/25. Instructions: drinks alcohol Previous Rx's ?Medication ?Instructions ?Recorded multivitamin 1 tab PO QDAY #30 tabs 11/17 Held on 03/02/25. Instructions: drinks alcohol thiamine HCl (vitamin B1) 100 mg 100 mg PO QDAY #30 ca ps 11/17/24 capsule Held on 03/02/25. Instructions: drinks alcohol amlodipine 5 mg tablet 5 mg PO QDAY hypertension #3 0 tabs 12/17/24 Held on 03/02/25. Instructions: because he drinks alcohol tamsulosin 0.4 mg capsule 0.4 mg PO QDAY #30 caps 12/11 Held on 03/02/25. Instructions: does not take because hedrinks alcohol pantoprazole 40 mg tablet,delayed 40 mg PO QDAY #30 ta bs 02/01/25 release (Protonix) Held on 03/02/25. Instructions: drinks alcohol Allergies Allergy/AdvReac Type Severity Reaction Status Date / Time No Known Allergies Allergy Verified 03/01/25 18:36 Review of Systems Review of Systems Systems Reviewed: All systems reviewed, normal except as documented Past Medical History Past Medical History NEUROLOGIC: Positive Traumatic Brain Injury CARDIAC: Positive Hypertension GASTROINTESTINAL: Positive Gall Bladder Disease and Hemorrhoids GENITOURINARY: Positive Renal Disease MUSCULOSKELETAL: Positive Arthritis and Rheumatoid Arthritis OTHER HISTORY: Positive Falls Family History FAMILY HISTORY: Positive Family Cardiac Disorders and Family Cancer Social History SECOND HAND EXPOSURE: Yes (sister including marijuana) ALCOHOL: Current ALCOHOL FREQUENCY: 3 or More Drinks per Day ALCOHOL LAST INTAKE: Just Prior to Arrival ED Exam Narrative Physical exam: See MDM for Dr. Garcia's Physical Exam Documentation. Course Quality Measures none Orders Category Date Time Status Bedside COVID-19 Antigen Test NOW Care 03/01/25 19:12 Active Bedside Influenza A&B Antigen Test NOW Care 03/01/25 19:[address] Screening NOW Care 03/01/25 19:17 Active Teletype Clerk Q4H START 00 Care 03/01/25 19:48 Active EKG (ED ONLY) *Do not use* NOW Care 03/01/25 19:17 Completed Saline [Insert IV] NOW Care 03/01/25 19:[address] chest abdomen pelvis w Stat Exams 03/01/25 19:[address] head/brain wo con Stat Exams 03/01/25 19:17 Completed EKG (ED Only) Stat Exams 03/01/25 19:17 Draft NM HIDA w pharm Stat Exams 03/02/25 07:25 Ordered US gall bladder Stat Exams 03/01/25 19:17 Completed XR chest 1V portable Stat Exams 03/01/25 19:17 Completed Alcohol, Blood Medical Stat Lab 03/01/25 21:40 Completed Ammonia Stat Lab 03/01/25 21:40 Completed Amylase Stat Lab 03/01/25 21:40 Completed BNP [B-Type Natriuretic Peptide] Stat Lab 03/01/25 21:40 Completed Beta Hydroxybutyrate Stat Lab 03/01/25 21:40 Completed Bilirubin,Direct Stat Lab 03/01/25 21:40 Completed CBC Stat Lab 03/01/25 21:40 Completed CK [Creatine Kinase] Stat Lab 03/01/25 21:40 Completed CMP [Comprehensive Metabolic Panel] Stat Lab 03/01/25 21:40 Completed CMP [Comprehensive Metabolic Panel] Stat Lab 03/02/25 08:00 Completed CRP [C-Reactive Protein] Stat Lab 03/01/25 21:40 Completed Drug Screen,Urine Stat Lab 03/01/25 04:56 Completed ESR [Sed Rate (ESR)] Stat Lab 03/01/25 21:40 Completed Magnesium Stat Lab 03/01/25 21:40 Completed PT [Prothrombin Time with INR] Stat Lab 03/01/25 21:40 Completed PTT [Partial Thromboplastin Time] Stat Lab 03/01/25 21:40 Completed Procalcitonin Stat Lab 03/01/25 21:40 Completed TSH [Thyroid Stimulating Hormone] Stat Lab 03/01/25 21:40 Completed Troponin I Stat Lab 03/01/25 21:40 Completed Type and Screen Stat Lab 03/02/25 08:00 Completed UA, C/S IF [Urinalysis, C/S if Indicated] Stat Lab 03/01/25 04:56 Completed VBG [Venous Blood Gas] Stat Lab 03/01/25 21:40 Completed Diazepam Inj [Valium Inj] Med 03/01/25 19:13 Discontinued 10 mg IVP X1 ONE Diazepam [Valium] Med 03/02/25 06:47 Discontinued 5 mg PO X1 ONE Famotidine Inj [Pepcid Inj] Med 03/01/25 19:14 Discontinued 20 mg IVP X1 ONE Ketorolac Inj [Toradol Inj] Med 03/01/25 19:13 Discontinued 30 mg IVP X1 ONE Ondansetron Inj [Zofran Inj] Med 03/01/25 19:13 Discontinued 4 mg IVP X1 ONE PHENobarbital Inj 130 mg Med 03/02/25 07:29 Discontinued Sodium Chloride 0.9% Flush [NS Flush] 12 ml IVP X1 POTASSIUM CHL 10 mEq IVPB [Kcl Ivpb] Med 03/01/25 23:30 Discontinued 10 meq in 100 ml IV X1 POTASSIUM CHL 10% Liq 15 ML Med 03/01/25 23:30 Discontinued 40 meq PO X1 ONE Pantoprazole Inj [Protonix Inj] Med 03/01/25 19:14 Discontinued 40 mg IVP X1 ONE Ringers Lactated 1000 ml [Lactated Ringers] 1,000 ml Med 03/01/25 23:31 Discontinued IV 1,000 mls/hr Sodium Chloride 0.9% 1000 ml [Ns] 1,000 ml Med 03/01/25 19:13 Discontinued IV 999 mls/hr Sodium Chloride 0.9% 1000 ml [Ns] 1,000 ml Med 03/01/25 19:14 Discontinued IV 999 mls/hr Thiamine Inj [Vitamin B-1 Inj] Med 03/01/25 19:13 Discontinued 100 mg IVP X1 ONE Vital Signs Vital signs: Vital Signs Temperature 98.8 F 03/01/25 18:54 Pulse Rate 95 03/01/25 18:54 Respiratory Rate 18 03/01/25 18:54 Blood Pressure 144/88 H 03/01/25 18:54 Pulse Oximetry (%) 95 03/01/25 18:54 Oxygen Delivery Method Room Air 03/01/25 18:54 Discharge Plan Plan Patient Disposition: Admit Acute Care w/in Hospital Problem List Clinical Impression: Alcohol intoxication, Cholelithiasis, Hypokalemia, LFT elevation, Increased ammonia level Alcohol MDM Narrative MDM Narrative: This section includes all my notes and documentations, including HPI, PE, and ED course. Sagar Garcia MD HPI: 50 y/o male with Hx of alcohol abuse presents with malaise, shaking, abdominal pain, and difficulty walking s/p alcohol consumption today. No other complaints. ROS: All negative except as documented in HPI. Physical Exam: General: Alert and oriented. Appears intoxicated. Eyes: Conjunctivae and lids clear. EOMI. PERRL. ENT: No nasal congestion. Neck: Supple. No carotid bruit. No JVD. Heart: RRR. Lungs: No respiratory distress. Good air movement. No rhonchi, wheezing, rales. Abdomen: Soft with equivocal tenderness, difficult to localize. Normal bowel sounds. No distension. No rebound or guarding. Back: No tenderness. Legs: No clubbing, cyanosis, edema. Skin: Warm and dry. Neuro: Alert and oriented X 3. Cranial Nerves II-XII grossly intact. No peripheral motor deficits. Musculoskeletal: All major joints and bones are not tender with no limited ROM. I reviewed all diagnostic test results: My interpretation of the EKG is: Sinus rhythm (95 bpm) with nonspecific ST-T changes. My interpretation of the chest x-ray is: NAD. My review of the head/brain CT report is: NAD. My review of the chest/abdomen/pelvis CT report is: NAD. My review of the Gall Bladder US report is: Cholelithiasis. Blood tests and urine tests remarkable for K 2.7, LFT elevation, ammonia 66, CK 228, and EtOH 298. Covid/Influenza: Negative. At this point, diagnoses include: Alcohol intoxication Hypokalemia LFT elevation Cholelithiasis Ammonia elevation Patient At 6 AM on 03/02/2025, the care of the patient was transferred to Dr. Aguiar. Sagar Garcia MD Patient data External records reviewed:: [facility] previous records (Reviewed prior ED records from 02/28/25. Patient was seen for Abdominal Pain.) Clinical information provided by:: patient Social determinants that could affect healthcare access:: alcohol use Patient has the following chronic illnesses:: Hypertension, Gall Bladder Disease, Hemorrhoids, Renal Disease, Arthritis and Rheumatoid Arthritis How is presenting disease/condition affected by chronic disease/condition?: exacerbated by Evaluation data The following diagnostics were reviewed and interpreted by me:: lab results, radiology exam(s) and EKG tracing(s) (My interpretation of the EKG is: Sinus rhythm (95 bpm) with nonspecific ST-T changes. Sagar Garcia MD) Lab and/or radiology exams considered but not ordered:: None Interpretation Summary: I reviewed all diagnostic test results: My interpretation of the EKG is: Sinus rhythm (95 bpm) with nonspecific ST-T changes. My interpretation of the chest x-ray is: NAD. My review of the head/brain CT report is: NAD. My review of the chest/abdomen/pelvis CT report is: NAD. My review of the Gall Bladder US report is: Cholelithiasis. Blood tests and urine tests remarkable for K 2.7, LFT elevation, ammonia 66, CK 228, and EtOH 298. Covid/Influenza: Negative. Medications / Prescriptions Medications or Prescriptions considered but not ordered:: None Medication administrations:: Medication Administration History Amlodipine Besylate (Amlodipine Besylate 5 Mg Tablet) 5 mg PO QDAY [facility] Stop: 04/01/25 16:29 Last Admin: 03/02/25 16:30 Dose: 5 mg Documented By: MARIA VICTORIA Chlordiazepoxide HCl (Chlordiazepoxide Hcl 25 Mg Capsule) 50 mg PO Q6HR [facility] Stop: 03/03/25 12:24 Last Admin: 03/02/25 17:46 Dose: 50 mg Documented By: MARIA VICTORIA Admin: 03/02/25 13:44 Dose: 50 mg Documented By: MARIA VICTORIA Enoxaparin Sodium (Enoxaparin Sod Inj 40 Mg/0.4 Ml Syringe) 40 mg SC QDAY [facility]; Protocol Stop: 03/17/25 08:59 Folic Acid (Folic Acid Inj 1 Mg/0.2 Ml) 1 mg IVP QDAY [facility] Stop: 04/01/25 09:44 Last Admin: 03/02/25 11:43 Dose: 1 mg Documented By: ROSS Lorazepam (Lorazepam 0.5 Mg Tablet) 0.5 mg PO Q4HR PRN PRN Reason: CIWA Score 2-6 Stop: 03/07/25 09:43 Lorazepam (Lorazepam 0.5 Mg Tablet) 1 mg PO Q4HR PRN PRN Reason: CIWA SCORE 7-11 Stop: 03/07/25 09:43 Lorazepam (Lorazepam 0.5 Mg Tablet) 2 mg PO Q4HR PRN PRN Reason: CIWA SCORE 12-15 Stop: 03/07/25 09:43 Multivitamins/Minerals (Multivitamin 15 Ml Udc) 15 ml PO QDAY [facility] Stop: 04/02/25 08:59 Ondansetron HCl (Ondansetron Inj 2 Mg/Ml Inj 2 Ml) 4 mg IVP Q6H PRN; Protocol PRN Reason: NAUSEA OR VOMITING Stop: 04/01/25 09:19 Pantoprazole Sodium (Pantoprazole Inj 40 Mg Vial) 40 mg IVP QDAY [facility] Stop: 04/02/25 08:59 Sennosides (Senna/Docusate Sod 1 Tab Tablet) 1 tab PO QDAY PRN; Protocol PRN Reason: Constipation (2days wo BM) Stop: 04/01/25 13:52 Thiamine HCl (Thiamine Inj 100 Mg/Ml Vial 2 Ml) 100 mg IVP QDAY [facility]; Protocol Stop: 04/02/25 08:59 Discontinued Medications Chlordiazepoxide HCl (Chlordiazepoxide Hcl 25 Mg Capsule) 50 mg PO Q6HR [facility] Stop: 03/05/25 09:27 Phenobarbital Sodium 130 mg/ (Sodium Chloride 12 ml) 0 mg IVP X1 ONE Stop: 03/02/25 07:30 Last Admin: 03/02/25 08:28 Dose: 130 mg Documented By: ROSS Phenobarbital Sodium 130 mg/ (Sodium Chloride 12 ml) 0 mg IVP X1 ONE Stop: 03/02/25 09:34 Last Admin: 03/02/25 10:36 Dose: 130 mg Documented By: ROSS Diazepam (Diazepam Inj 5 Mg/Ml Vial 2 Ml) 10 mg IVP X1 ONE Stop: 03/01/25 19:14 Last Admin: 03/01/25 19:55 Dose: 10 mg Documented By: BD Diazepam (Diazepam 5 Mg Tablet) 5 mg PO X1 ONE Stop: 03/02/25 06:48 Last Admin: 03/02/25 06:59 Dose: 5 mg Documented By: BD Diazepam (Diazepam Inj 5 Mg/Ml Vial 2 Ml) 2.5 mg IVP Q2HR PRN; Protocol PRN Reason: CIWA SCORE 8-13 Stop: 03/07/25 09:25 Famotidine (Famotidine Inj 10 Mg/Ml Vial 2 Ml) 20 mg IVP X1 ONE Stop: 03/01/25 19:15 Last Admin: 03/01/25 19:55 Dose: 20 mg Documented By: BD Sodium Chloride (Ns) 1,000 mls @ 999 mls/hr IV .Q1H1M ONE Stop: 03/01/25 20:13 Last Infusion: 03/01/25 20:56 Dose: Infused Documented By: Admin: 03/01/25 19:52 Dose: 999 mls/hr Documented By: BD Sodium Chloride (Ns) 1,000 mls @ 999 mls/hr IV .Q1H1M ONE Stop: 03/01/25 20:14 Last Infusion: 03/01/25 20:56 Dose: Infused Documented By: Admin: 03/01/25 19:53 Dose: 999 mls/hr Documented By: BD Potassium Chloride (Kcl Ivpb) 10 meq in 100 mls @ 100 mls/hr IV X1 ONE Stop: 03/02/25 00:29 Last Infusion: 03/02/25 01:08 Dose: Infused Documented By: Admin: 03/02/25 00:02 Dose: 100 mls/hr Documented By: BD Lactated Ringer's (Lactated Ringers) 1,000 mls @ 1,000 mls/hr IV .Q1H ONE Stop: 03/02/25 00:30 Last Infusion: 03/02/25 01:01 Dose: Infused Documented By: Admin: 03/02/25 00:02 Dose: 1,000 mls/hr Documented By: BD Potassium Chloride (Kcl Ivpb) 10 meq in 100 mls @ 100 mls/hr IV Q1H [facility] Stop: 03/02/25 11:25 Last Admin: 03/02/25 11:44 Dose: 100 mls/hr Documented By: Infusion: 03/02/25 11:42 Dose: Infused Documented By: Admin: 03/02/25 10:42 Dose: 100 mls/hr Documented By: ROSS Sodium Chloride (Ns) 1,000 mls @ 150 mls/hr IV .Q6H40M ONE Stop: 03/02/25 17:02 Last Infusion: 03/02/25 14:07 Dose: 90 mls/hr Documented By: MARIA VICTORIA Admin: 03/02/25 10:42 Dose: 150 mls/hr Documented By: ROSS Potassium Chloride (Kcl Ivpb) 10 meq in 100 mls @ 100 mls/hr IV Q1H [facility] Stop: 03/02/25 17:57 Last Admin: 03/02/25 17:46 Dose: 100 mls/hr Documented By: MARIA VICTORIA Infusion: 03/02/25 17:46 Dose: Infused Documented By: MARIA VICTORIA Admin: 03/02/25 16:46 Dose: 100 mls/hr Documented By: MARIA VICTORIA Infusion: 03/02/25 16:46 Dose: Infused Documented By: MARIA VICTORIA Admin: 03/02/25 15:50 Dose: 100 mls/hr Documented By: MARIA VICTORIA Sodium Chloride (Ns) 1,000 mls @ 90 mls/hr IV .Q11H7M [facility] Stop: 03/03/25 12:13 Last Admin: 03/02/25 14:07 Dose: Not Given Documented By: MARIA VICTORIA Non-Admin Reason: reduce rate to 90ml/hr from infusing Ketorolac Tromethamine (Ketorolac Inj 30 Mg/Ml Vial) 30 mg IVP X1 ONE Stop: 03/01/25 19:14 Last Admin: 03/01/25 19:54 Dose: 30 mg Documented By: SALMA Labetalol HCl (Labetalol Inj 5 Mg/Ml Vial 20 Ml) 10 mg IVP X1 ONE Stop: 03/02/25 09:35 Last Admin: 03/02/25 10:46 Dose: 10 mg Documented By: ROSS Labetalol HCl (Labetalol Inj 5 Mg/Ml Vial 20 Ml) 10 mg IVP X1 ONE Stop: 03/02/25 13:47 Last Admin: 03/02/25 13:52 Dose: 10 mg Documented By: MARIA VICTORIA Ondansetron HCl (Ondansetron Inj 2 Mg/Ml Inj 2 Ml) 4 mg IVP X1 ONE; Protocol Stop: 03/01/25 19:14 Last Admin: 03/01/25 19:53 Dose: 4 mg Documented By: BD Pantoprazole Sodium (Pantoprazole Inj 40 Mg Vial) 40 mg IVP X1 ONE Stop: 03/01/25 19:15 Last Admin: 03/01/25 19:55 Dose: 40 mg Documented By: BD Pantoprazole Sodium (Pantoprazole Inj 40 Mg Vial) 40 mg IVP X1 ONE Stop: 03/02/25 12:51 Last Admin: 03/02/25 13:44 Dose: 40 mg Documented By: JRR Potassium Chloride (Potassium Chloride 10% 20 Meq/15 Ml Udc) 40 meq PO X1 ONE Stop: 03/01/25 23:31 Last Admin: 03/02/25 00:01 Dose: 40 meq Documented By: BD Thiamine HCl (Thiamine Inj 100 Mg/Ml Vial 2 Ml) 100 mg IVP X1 ONE Stop: 03/01/25 19:14 Last Admin: 03/01/25 19:54 Dose: 100 mg Documented By: BD Treatment here from ne included: IVF Valium 10 mg IV Pepcid 20 mg IV [place] 30 mg IV Zofran 4 mg IV Protonix 40 mg IV Thiamine 100 mg IV Oral KCl 40 mEq Consultations Consultation(s) initiated? (list below): No Diagnosis Differential diagnosis alcohol: alcohol withdrawal delirium, hypomagnesemia, alcohol intoxication, alcohol ketoacidosis and alcohol withdrawal syndrome Most likely diagnosis given after review of the tests above:: At this point, diagnoses include: Alcohol intoxication Hypokalemia LFT elevation Cholelithiasis Ammonia elevation Admission Indicated Admission indicated?: not indicated Explain why admission is indicated or not indicated:: At 6 AM on 03/02/2025, the care of the patient was transferred to Dr. Aguiar. Admission Request Was there a request for admission?: No Disposition Plan Disposition Plan: other (specify) (At 6 AM on 03/02/2025, the care of the patient was transferred to Dr. Aguiar.)
--- NOTE | 2025-03-01 19:17 | XR_ITS ---
Examination: AP chest single view Technique: AP portable upright chest single view Date and time: March 01, 2025 1949 hrs., Comparison January 25, 2025 Indications: Shortness of breath chest pain today Findings: Minimal prominence left ventricle. No pneumonia or pulmonary edema. Mild osteopenia. Impression: No active disease.
--- NOTE | 2025-03-01 19:17 | XR_ITS ---
Examination: Abdomen sonogram, Limited Date and time of exam: March 01, 2025 2019 hrs. Indications: Right upper abdominal pain beginning 2 weeks ago Technique: Real-time cortes scale transabdominal sonographic images of the upper abdomen obtained. Findings: Cholelithiasis Thickened gallbladder wall 0.5 cm Common bile duct 0.5 cm Pancreatic head 2.7 cm Liver 20 cm fatty infiltration lobular contour Normal hepatopedal portal venous flow Patent IVC Impression: Cholelithiasis, recommend HIDA scan or MRCP follow-up to confirm cholecystitis Moderate hepatomegaly primary hepatocellular disease
--- NOTE | 2025-03-01 19:17 | XR_ITS ---
Examination: CT chest with intravenous contrast CT abdomen with intravenous contrast CT pelvis with intravenous contrast 2-D coronal and sagittal reconstructions Time of exam: March 01, 2025 11:30 PM Indications: Chest pain shortness of breath today CTDI: vol (mGy) : 30.01 DLP: (mGycm): 2097 Technique: Multiple axial images of the chest, abdomen and pelvis with intravenous contrast, 3.0 mm slice thickness. Images obtained post intravenous injection Isovue 370 60 cc. 2-D sagittal and coronal reconstructions. Low dose protocols were performed. One or more of the following dose reduction techniques were used; automated exposure control, adjustment of the mA and/or KV according to patient size, use of iterative reconstruction technique. Findings: No thoracic aortic aneurysm dilatation No pulmonary artery filling defects on this non-CTA study No paratracheal tracheobronchial or bronchopulmonary adenopathy. No pneumonia or pulmonary edema or pleural disease Liver is mildly irregular in contour, hepatomegaly 21 cm splenomegaly 15 cm gallstones Spleen is not enlarged No pancreatic or adrenal mass No renal or ureteral calculi, no hydronephrosis Aorta normal size No pericecal inflammatory change Urinary bladder intact Mild prostatomegaly Advanced disc narrowing L5-S1 Impression: No pneumonia pulmonary edema or pleural disease Suspect primary hepatocellular disease Hepatosplenomegaly No renal or ureteral calculi, no hydronephrosis No CT findings of appendicitis bowel obstruction or diverticulitis
--- NOTE | 2025-03-01 19:17 | XR_ITS ---
Examination: CT brain head without contrast. 2-D sagittal coronal reconstructions Date and time of exam:March 01, 2025 1137 hrs. Indications: Ataxia today CTDI: vol (mGy):56.9 DLP: (mGycm):1269 Technique: Multiple CT axial sections of the brain have been obtained, 5 mm slice thickness. Contrast has not been administered. 2-D sagittal, coronal reconstructions have been obtained Low dose protocols were performed. One or more of the following dose reduction techniques were used; automated exposure control, adjustment of the mA and/or KV according to patient size, use of iterative reconstruction technique. Findings: No significant ventricular enlargement. Intra-axial or extra-axial hemorrhage density is not seen. No mass effect or midline shift Basal cisterns are not remarkable. Fourth ventricle is midline. Cranial vault intact. Minimal posterior right parietal scalp swelling Impression: Negative for acute hemorrhage, mass effect or midline shift
--- NOTE | 2025-03-01 19:17 | EKG_ITS ---
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
[2025-03-01 19:31] VITALS: BP 148/101; PULSE 85; RESP 16; TEMP 36.9; O2SAT 100
[2025-03-01] MEDS: SODIUM CHLORIDE 0.9% 1000 ML 1,000 ML 999 ML IV ×2 (19:52→19:53)
[2025-03-01] MEDS: ONDANSETRON INJ 2 MG/ML INJ 2 ML 4 MG IVP (19:53)
[2025-03-01] MEDS: THIAMINE INJ 100 MG/ML VIAL 2 ML IVP (19:54)
[2025-03-01] MEDS: KETOROLAC INJ 30 MG/ML VIAL IVP (19:54)
[2025-03-01] MEDS: DIAZEPAM INJ 5 MG/ML VIAL 2 ML 10 MG IVP (19:55)
[2025-03-01] MEDS: FAMOTIDINE INJ 10 MG/ML VIAL 2 ML 20 MG IVP (19:55)
[2025-03-01 20:01] VITALS: PULSE 89
--- NOTE | 2025-03-01 20:04 | PC.NURSE ---
PT REFUSED CATH WILL USE URINAL
--- NOTE | 2025-03-01 20:22 | PC.NURSE ---
pt daughter ning called she is contact on pt account spoke with pt he stated he will call her he does not want us to disclose any info
[2025-03-01 21:55] VITALS: BP 164/97; PULSE 87; RESP 18; TEMP 36.9; O2SAT 100
[2025-03-01 21:56] LABS: Base Excess, Venous -3 (-3-3); O2 Saturation, Venous 98 % (96-97); PCO2, Venous 38 mmHg (36-56); PO2, Venous 100 mmHg (15-58); pH, Venous 7.38 (7.33-7.66)
[2025-03-01 22:01] LABS: Sed Rate (ESR) 27 mm/hr (0-20)
[2025-03-01 22:05] LABS: Basophils # (Auto) 0.0 Thou/mm3 (0.0-0.2); Basophils % (Auto) 1 % (0-2.5); Eosinophils # (Auto) 0.1 Thou/mm3 (0.0-0.5); Eosinophils % (Auto) 1 % (0-10); Hematocrit 35.5 % (41.0-53.0); Hemoglobin 11.5 g/dL (13.5-16.0); Immature Granulocytes Auto 0.02 Thou/mm3 (0.00-0.00); Lymphocytes # (Auto) 0.9 Thou/mm3 (1.0-4.8); Lymphocytes % (Auto) 16 % (10-50); Mean Corpuscular HGB Conc 32.4 g/dl (31.0-37.0); Mean Corpuscular Hemoglobin 28.5 pg (25.0-35.0); Mean Corpuscular Volume 88 fL (80-100); Monocytes # (Auto) 0.4 Thou/mm3 (0.0-0.8); Monocytes % (Auto) 6 % (0-12); Neutrophils # (Auto) 4.1 Thou/mm3 (1.8-7.7); Neutrophils % (Auto) 76 % (37-80); Nucleated Red Blood Cell # 0.00 Thou/mm3 (0.00-0.00); Nucleated Red Blood Cell % 0 /100 WBC (0); Platelet Count 69 Thou/mm3 (140-440); RDW Standard Deviation 46.0 fL (35.1-43.9); Red Blood Count 4.03 Miln/mm3 (4.50-5.90); White Blood Count 5.4 Thou/mm3 (3.8-10.6)
[2025-03-01 22:06] LABS: Slide Review Platelets confirmed
[2025-03-01 22:09] LABS: Beta Hydroxybutyrate 0.2 mmol/L (<0.6)
[2025-03-01 22:12] LABS: INR 1.1 (0.9-1.3); Partial Thromboplastin Time 28.7 Seconds (22.0-36.0); Prothrombin Time 11.9 Seconds (9.0-12.2)
[2025-03-01 22:15] LABS: Ammonia 66 uMol/L (11-32)
[2025-03-01 22:27] LABS: B-Type Natriuretic Peptide 54 pg/mL (0-100)
[2025-03-01 22:42] LABS: Alanine Aminotransferase 73 U/L (10-49); Albumin, Serum 4.5 gm/dL (3.5-5.0); Albumin/Globulin Ratio 1.5 (1.2-2.2); Alcohol, Blood Medical 298.0 mg/dL (0-10.0); Alkaline Phosphatase 300 U/L (46-116); Amylase 42 U/L (30-118); Anion Gap 15 (7-16); Aspartate Amino Transferase 179 U/L (0-34); BUN/Creatinine Ratio 9 Ratio (12-20); Bilirubin,Direct 0.5 mg/dL (0.0-0.3); Bilirubin,Total 1.0 mg/dL (0.3-1.2); Blood Urea Nitrogen 8 mg/dL (9-23); C-Reactive Protein < 0.5 mg/dL (0.0-0.9); Calcium 8.4 mg/dL (8.3-10.6); Calcium (Corrected) 8.4 mg/dL (8.5-10.1); Carbon Dioxide 22.2 mMol/L (20.0-31.0); Chloride 109 mMol/L (98-107); Creatine Kinase 228 U/L (34-171); Creatinine (Component) 0.9 mg/dL (0.6-1.3); Estimated Creatinine Clearance 124.2 mL/min (>60); Globulin 3.1 gm/dL (2.3-3.5); Glucose 93 mg/dL (74-106); Magnesium 1.8 mg/dL (1.6-2.6); Osmolality,Calculated 288 (275-295); Procalcitonin 0.20 ng/ml (0.0-0.49); Sodium 146 mMol/L (136-145); Thyroid Stimulating Hormone 1.93 uIU/mL (0.55-4.78); Total Protein 7.6 gm/dL (5.7-8.2); Troponin I < 0.020 ng/mL (0.0-0.045); eGFR > 60 See Note
[2025-03-01 22:46] LABS: Potassium 2.7 mMol/L (3.4-5.1)
[2025-03-02] VITALS (17 sets, daily range): BP systolic 157–191; BP diastolic 95–116; PULSE 74–95; RESP 15–20; TEMP 36.4–37.2; O2SAT 95–100
[2025-03-02] MEDS: POTASSIUM CHLORIDE 10% 20 MEQ/15 ML UDC 40 MEQ PO (00:01)
[2025-03-02] MEDS: RINGERS LACTATED 1000 ML 1,000 ML IV (00:02)
[2025-03-02] MEDS: POTASSIUM CHL 10 mEq IVPB 10 MEQ/100 ML BAG 100 MEQ IV ×7 (00:02→19:50)
[2025-03-02 05:10] LABS: Collection Type, Urine Clean Catch; Squamous Epithelial Cell,Urine 0 /hpf (0-5)
[2025-03-02 05:18] LABS: Bacteria,Urine Rare; Bilirubin,Urine Negative (Negative); Blood,Urine Negative (Negative); Clarity,Urine Clear (Clear/Hazy); Color,Urine Yellow (Lt Yel-Yel); Culture Indicated,Urine Not Indicated; Glucose, Urine Negative (Negative); Hyaline Casts,Urine 1 /hpf (0-1); Ketones,Urine Trace (Negative); Leukocyte Esterase,Urine Negative (Negative); Nitrite,Urine Negative (Negative); PH,Urine 7.0 (5.0-7.0); Protein,Urine Trace (Neg - Trace); RBC,Urine 5 /hpf (0-3); Specific Gravity,Urine 1.035 (1.001-1.035); Urobilinogen,Urine 2.0 mg/dL (0.0-1.0); WBC,Urine 2 /hpf (0-5)
[2025-03-02 05:25] LABS: Amphetamine/Methamp Scrn,U Positive (Negative); Barbiturate Screen,Urine Negative (Negative); Benzodiazepines Screen,Urine Negative (Negative); Benzoylecgonine Screen, Ur Negative (Negative); Fentanyl Screen,Urine Negative (Negative); Opiate Screen,Urine Negative (Negative); THC Screen,Urine Negative (Negative)
--- NOTE | 2025-03-02 06:46 | EDNOTE_ITS ---
Emergency Room Addendum <Olga Lidia Montalvo - Last Filed: 03/02/25 07:35> Addendum Narrative: 0600: Care assumed from Dr. Garcia, the previous shift emergency physician. Past medical, surgical, social and family history reviewed. Vitals and home medications reviewed. I will assume the care of the patient at this time. Please refer to the emergency department record for history and examination from initial visit.? Physical exam by me at 0638 hours shows patient still uncomfortable, endorsing moderate nausea, diaphoresis, restlessness, anxiety, and tremors. 50-year-old male with past medical history of hypertension, alcohol use disorder, and methamphetamine abuse (last use yesterday) presents to the Emergency Department with abdominal pain since yesterday morning. He reports his last alcohol intake was yesterday. He endorses moderate nausea, diaphoresis, restlessness, anxiety, and tremors, though he denies visual or auditory hallucinations. No known drug allergies. Patient is coming in today because of abdominal pain, states that he was diagnosed with appendicitis not too long ago however did not want to be hospitalized at the time. He is coming in today because of recurrent abdominal pain, states he is feeling shaky, and is amenable to hospitalization. Prior provider evaluated patient ordered labs, head CT, EKG, right upper quadrant ultrasound as well as CT abdomen pelvis with contrast and chest x-ray. Labs without leukocytosis, hemoglobin 11.5, platelets 69 previ ously 107 in January of this year. I ordered a type and screen. Patient does not have any signs of bleeding, no hematemesis, no hematochezia no melena however patient does have a worsening thrombocytopenia. Patient ESR is 27. pH 7.38. Patient potassium is 2.7, chloride is 109. Patient with a transaminitis normal bilirubin, AST 179, ALT 73 alk phos 300. Worse than prior. Ammonia 66, CK2 28. Procalcitonin not elevated, thyroid studies unremarkable. Urinalysis without evidence of infection. Drug screen positive for methamphetamines, blood alcohol level 298. Patient received potassium supplementation as well as fluids and vitamins. Also received Protonix and Pepcid. On my assessment, patient CIWA is 18, provided patient with medication for symptom relief. EKG performed yesterday at 1918, sinus rhythm, normal intervals, nonspecific T wave changes, not a cardiac alert. Troponin not elevated. Head CT and chest x-ray unremarkable. CT chest abdomen pelvis with findings concerning for liver disease however no findings to suggest appendicitis at this time on CT per radiology. Patient does have gallstones. Right upper quadrant ultrasound radiologist recommend HIDA or MRCP to assess for cholecystitis. We do not have MRI capabilities at our facility at this time. Ordered HIDA scan. On my assessment, patient's abdominal pain is diffuse not localized to the right upper quadrant. Patient is not peritonitic. 7:28a on reassessment, patient states he feels better however continues to be shaky, will provide patient with phenobarbital. Plan to admit for alcohol withdrawals. Monitoring for progression to severe withdrawal or delirium tremens is essential. Patient has gone to withdrawal in the past. Differential Diagnoses: Alcohol withdrawal, alcoholic gastritis, and stimulant- related sympathomimetic effects. Most likely diagnosis given after review of the tests above: Cirrhosis, alcohol withdrawal 0733: Discussed test HPI, PMHx, lab, radiology results and/or management with resident working with the hospitalist. Will admit for further evaluation and management. Accepts patient for admission. <Zonia Aguiar MD - Last Filed: 03/02/25 09:34> Addendum Narrative: 0600: Care assumed from Dr. Garcia, the previous shift emergency physician. Past medical, surgical, social and family history reviewed. Vitals and home medications reviewed. I will assume the care of the patient at this time. Please refer to the emergency department record for history and examination from initial visit.? Physical exam by me at 0638 hours shows patient still uncomfortable, endorsing moderate nausea, diaphoresis, restlessness, anxiety, and tremors. 50-year-old male with past medical history of hypertension, alcohol use disorder, and methamphetamine abuse (last use yesterday) presents to the Emergency Department with abdominal pain since yesterday morning. He reports his last alcohol intake was yesterday. He endorses moderate nausea, diaphoresis, restlessness, anxiety, and tremors, though he denies visual or auditory hallucinations. No known drug allergies. Patient is coming in today because of abdominal pain, states that he was diagnosed with appendicitis not too long ago however did not want to be hospitalized at the time. He is coming in today because of recurrent abdominal pain, states he is feeling shaky, and is amenable to hospitalization. Prior provider evaluated patient ordered labs, head CT, EKG, right upper quadrant ultrasound as well as CT abdomen pelvis with contrast and chest x-ray. Labs without leukocytosis, hemoglobin 11.5, platelets 69 previously 107 in January of this year. I ordered a type and screen. Patient does not have any signs of bleeding, no hematemesis, no hematochezia no melena however patient does have a worsening thrombocytopenia. Patient ESR is 27. pH 7.38. Patient potassium is 2.7, chloride is 109. Patient with a transaminitis normal bilirubin, AST 179, ALT 73 alk phos 300. Worse than prior. Ammonia 66, CK2 28. Procalcitonin not elevated, thyroid studies unremarkable. Urinalysis without evidence of infection. Drug screen positive for methamphetamines, blood alcohol level 298. Patient received potassium supplementation as well as fluids and vitamins. Also received Protonix and Pepcid. On my assessment, patient CIWA is 18, provided patient with medication for symptom relief. EKG performed yesterday at 1918, sinus rhythm, normal intervals, nonspecific T wave changes, not a cardiac alert. Troponin not elevated. Head CT and chest x-ray unremarkable. CT chest abdomen pelvis with findings concerning for liver disease however no findings to suggest appendicitis at this time on CT per radiology. Patient does have gallstones. Right upper quadrant ultrasound radiologist recommend HIDA or MRCP to assess for cholecystitis. We do not have MRI capabilities at our facility at this time. Ordered HIDA scan. On my assessment, patient's abdominal pain is diffuse not localized to the right upper quadrant. Patient is not peritonitic. 7:28a on reassessment, patient states he feels better however continues to be shaky, will provide patient with phenobarbital. Plan to admit for alcohol withdrawals. Monitoring for progression to severe withdrawal or delirium tremens is essential. Patient has gone to withdrawal in the past. Differential Diagnoses: Alcohol withdrawal, alcoholic gastritis, and stimulant- related sympathomimetic effects. Most likely diagnosis given after review of the tests above: Cirrhosis, alcohol withdrawal 0733: Discussed test HPI, PMHx, lab, radiology results and/or management with resident working with the hospitalist. Will admit for further evaluation and management. Accepts patient for admission. Critical Care Time <Olga Lidia Montalvo - Last Filed: 03/02/25 07:35> Critical Care Time Critical Care Time: Yes Total Critical Care Time (min.): 45 Attestation: The high probability of sudden, clinically significant deterioration in the patient?s condition required the highest level of my preparedness to intervene urgently. The services I provided to this patient were to treat and/or prevent clinically significant deterioration. Services included the following: chart data review, reviewing nursing notes and/or old charts, documentation time, territory sales consultant collaboration regarding findings and treatment options, medication orders and management, direct patient care, vital sign assessments and ordering, interpreting and reviewing diagnostic studies and lab tests. Aggregate critical care time includes only time during which I was engaged in work directly related to the patient?s care, as described above, whether at bedside or elsewhere in the Emergency Department. It did not include time spent performing other reported procedures or the services of residents, students, nurses or physician assistants. <Zonia Aguiar MD - Last Filed: 03/02/25 09:34> Critical Care Time Total Critical Care Time (min.): 60 Results <Olga Lidia Montalvo - Last Filed: 03/02/25 07:35> Objective Laboratory: Laboratory Last Values WBC 5.4 Thou/mm3 (3.8-10.6) 03/01/25 21:40 RBC 4.03 Miln/mm3 (4.50-5.90) L 03/01/25 21:40 Hgb 11.5 g/dL (13.5-16.0) L 03/01/25 21:40 Hct 35.5 % (41.0-53.0) L 03/01/25 21:40 MCV 88 fL (80-100) 03/01/25 21:40 MCH 28.5 pg (25.0-35.0) 03/01/25 21:40 MCHC 32.4 g/dl (31.0-37.0) 03/01/25 21:40 RDW Std Deviation 46.0 fL (35.1-43.9) H 03/01/25 21:40 Plt Count 69 Thou/mm3 (140-440) L D 03/01/25 21:40 Neut % (Auto) 76 % (37-80) 03/01/25 21:40 Lymph % (Auto) 16 % (10-50) 03/01/25 21:40 [place] % (Auto) 6 % (0-12) 03/01/25 21:40 Eos % (Auto) 1 % (0-10) 03/01/25 21:40 Baso % (Auto) 1 % (0-2.5) 03/01/25 21:40 Neut # (Auto) 4.1 Thou/mm3 (1.8-7.7) 03/01/25 21:40 Lymph # (Auto) 0.9 Thou/mm3 (1.0-4.8) L 03/01/25 21:40 [place] # (Auto) 0.4 Thou/mm3 (0.0-0.8) 03/01/25 21:40 Eos # (Auto) 0.1 Thou/mm3 (0.0-0.5) 03/01/25 21:40 Baso # (Auto) 0.0 Thou/mm3 (0.0-0.2) 03/01/25 21:40 Immature Gran # (Auto) 0.02 Thou/mm3 (0.00-0.00) H 03/01/25 21:40 Absolute Nucleated RBC 0.00 Thou/mm3 (0.00-0.00) 03/01/25 21:40 Immature Gran % 0 % (0-0) 03/01/25 21:40 Nucleated RBC % 0 /100 WBC (0) 03/01/25 21:40 ESR 27 mm/hr (0-20) H 03/01/25 21:40 PT 11.9 Seconds (9.0-12.2) 03/01/25 21:40 INR 1.1 (0.9-1.3) 03/01/25 21:40 APTT 28.7 Seconds (22.0-36.0) 03/01/25 21:40 VBG pH 7.38 (7.33-7.66) 03/01/25 21:40 VBG pCO2 38 mmHg (36-56) 03/01/25 21:40 VBG pO2 100 mmHg (15-58) H 03/01/25 21:40 VBG O2 Sat (Sandie) 98 % (96-97) H 03/01/25 21:40 VBG Base Excess -3 (-3-3) 03/01/25 21:40 Sodium 146 mMol/L (136-145) H 03/01/25 21:40 Potassium 2.7 mMol/L (3.4-5.1) L* 03/01/25 21:40 Chloride 109 mMol/L (98-107) H 03/01/25 21:40 Carbon Dioxide 22.2 mMol/L (20.0-31.0) 03/01/25 21:40 Anion Gap 15 (7-16) 03/01/25 21:40 BUN 8 mg/dL (9-23) L 03/01/25 21:40 Creatinine 0.9 mg/dL (0.6-1.3) 03/01/25 21:40 Estim Creat Clear Calc 124.2 mL/min (>60) 03/01/25 21:40 eGFR > 60 See Note (60-) 03/01/25 21:40 BUN/Creatinine Ratio 9 Ratio (12-20) L 03/01/25 21:40 Glucose 93 mg/dL (74-106) 03/01/25 21:40 Calculated Osmolality 288 (275-295) 03/01/25 21:40 Calcium 8.4 mg/dL (8.3-10.6) 03/01/25 21:40 Corrected Calcium 8.4 mg/dL (8.5-10.1) L 03/01/25 21:40 Magnesium 1.8 mg/dL (1.6-2.6) 03/01/25 21:40 Total Bilirubin 1.0 mg/dL (0.3-1.2) 03/01/25 21:40 Direct Bilirubin 0.5 mg/dL (0.0-0.3) H 03/01/25 21:40 AST 179 U/L (0-34) H 03/01/25 21:40 ALT 73 U/L (10-49) H 03/01/25 21:40 Alkaline Phosphatase 300 U/L (46-116) H 03/01/25 21:40 Ammonia 66 uMol/L (11-32) H 03/01/25 21:40 Total Creatine Kinase 228 U/L (34-171) H 03/01/25 21:40 Troponin I < 0.020 ng/mL (0.0-0.045) 03/01/25 21:40 C-Reactive Prot, Quant < 0.5 mg/dL (0.0-0.9) 03/01/25 21:40 B-Natriuretic Peptide 54 pg/mL (0-100) 03/01/25 21:40 Total Protein 7.6 gm/dL (5.7-8.2) 03/01/25 21:40 Albumin 4.5 gm/dL (3.5-5.0) 03/01/25 21:40 Globulin 3.1 gm/dL (2.3-3.5) 03/01/25 21:40 Albumin/Globulin Ratio 1.5 (1.2-2.2) 03/01/25 21:40 Amylase 42 U/L (30-118) 03/01/25 21:40 Beta-Hydroxybutyrate/Acetoacetate 0.2 mmol/L (<0.6) 03/01/25 21:40 Procalcitonin 0.20 ng/ml (0.0-0.49) 03/01/25 21:40 TSH 1.93 uIU/mL (0.55-4.78) 03/01/25 21:40 Ur Collection Type Clean Catch 03/01/25 04:56 Urine Color Yellow (Lt Yel-Yel) 03/01/25 04:56 Urine Clarity Clear (Clear/Hazy) 03/01/25 04:56 Urine pH 7.0 (5.0-7.0) 03/01/25 04:56 Ur Specific [place] 1.035 (1.001-1.035) 03/01/25 04:56 Urine Protein Trace (Neg - Trace) 03/01/25 04:56 Urine Glucose (UA) Negative (Negative) 03/01/25 04:56 Urine Ketones Trace (Negative) 03/01/25 04:56 Urine Blood Negative (Negative) 03/01/25 04:56 Urine Nitrite Negative (Negative) 03/01/25 04:56 Urine Bilirubin Negative (Negative) 03/01/25 04:56 Urine Urobilinogen (Auto) 2.0 mg/dL (0.0-1.0) 03/01/25 04:56 Ur Leukocyte Esterase Negative (Negative) 03/01/25 04:56 Urine RBC 5 /hpf (0-3) H 03/01/25 04:56 Urine WBC 2 /hpf (0-5) 03/01/25 04:56 Ur Squamous Epith Cells 0 /hpf (0-5) 03/01/25 04:56 Urine Bacteria Rare (None) 03/01/25 04:56 Hyaline Casts 1 /hpf (0-1) 03/01/25 04:56 Ur Culture Indicated? Not Indicated 03/01/25 04:56 Urine Opiates Screen Negative (Negative) 03/01/25 04:56 Urine Fentanyl Screen Negative (Negative) 03/01/25 04:56 Ur Barbiturates Screen Negative (Negative) 03/01/25 04:56 U Amphetamin/Meth Scrn Positive (Negative) A 03/01/25 04:56 U Benzodiazepines Scrn Negative (Negative) 03/01/25 04:56 U Cocaine Metab Screen Negative (Negative) 03/01/25 04:56 U Marijuana (THC) Screen Negative (Negative) 03/01/25 04:56 Ethyl Alcohol 298.0 mg/dL (0-10.0) H 03/01/25 21:40 Misc Test Result Platelets confirmed 03/01/25 21:40 Imaging: Procedure(s): CT head/brain wo con Accession Number(s): [id number] cc: Jacinto Diaz MD; Sagar Garcia MD; Apolinar Ye MD~ Examination: CT brain head without contrast. 2-D sagittal coronal reconstructions Date and time of exam:March 01, 2025 1137 hrs. Indications: Ataxia today CTDI: vol (mGy):56.9 DLP: (mGycm):1269 Technique: Multiple CT axial sections of the brain have been obtained, 5 mm slice thickness. Contrast has not been administered. 2-D sagittal, coronal reconstructions have been obtained Low dose protocols were performed. One or more of the following dose reduction techniques were used; automated exposure control, adjustment of the mA and/or KV according to patient size, use of iterative reconstruction technique. Findings: No significant ventricular enlargement. Intra-axial or extra-axial hemorrhage density is not seen. No mass effect or midline shift Basal cisterns are not remarkable. Fourth ventricle is midline. Cranial vault intact. Minimal posterior right parietal scalp swelling Impression: Negative for acute hemorrhage, mass effect or midline shift Dictated By: Apolinar Ye MD Procedure(s): US gall bladder Accession Number(s): [id number] cc: Jacinto Diaz MD; Sagar Garcia MD; Apolinar Ye MD~ Examination: Abdomen sonogram, Limited Date and time of exam: March 01, 2025 2019 hrs. Indications: Right upper abdominal pain beginning 2 weeks ago Technique: Real-time cortes scale transabdominal sonographic images of the upper abdomen obtained. Findings: Cholelithiasis Thickened gallbladder wall 0.5 cm Common bile duct 0.5 cm Pancreatic head 2.7 cm Liver 20 cm fatty infiltration lobular contour Normal hepatopedal portal venous flow Patent IVC Impression: Cholelithiasis, recommend HIDA scan or MRCP follow-up to confirm cholecystitis Moderate hepatomegaly primary hepatocellular disease Dictated By: Apolinar Ye MD Procedure(s): CT chest abdomen pelvis w Accession Number(s): [id number] cc: Jacinto Diaz MD; Sagar Garcia MD; Apolinar Ye MD~ Examination: CT chest with intravenous contrast CT abdomen with intravenous contrast CT pelvis with intravenous contrast 2-D coronal and sagittal reconstructions Time of exam: March 01, 2025 11:30 PM Indications: Chest pain shortness of breath today CTDI: vol (mGy) : 30.01 DLP: (mGycm): 2097 Technique: Multiple axial images of the chest, abdomen and pelvis with intravenous contrast, 3.0 mm slice thickness. Images obtained post intravenous injection Isovue 370 60 cc. 2-D sagittal and coronal reconstructions. Low dose protocols were performed. One or more of the following dose reduction techniques were used; automated exposure control, adjustment of the mA and/or KV according to patient size, use of iterative reconstruction technique. Findings: No thoracic aortic aneurysm dilatation No pulmonary artery filling defects on this non-CTA study No paratracheal tracheobronchial or bronchopulmonary adenopathy. No pneumonia or pulmonary edema or pleural disease Liver is mildly irregular in contour, hepatomegaly 21 cm splenomegaly 15 cm gallstones Spleen is not enlarged No pancreatic or adrenal mass No renal or ureteral calculi, no hydronephrosis Aorta normal size No pericecal inflammatory change Urinary bladder intact Mild prostatomegaly Advanced disc narrowing L5-S1 Impression: No pneumonia pulmonary edema or pleural disease Suspect primary hepatocellular disease Hepatosplenomegaly No renal or ureteral calculi, no hydronephrosis No CT findings of appendicitis bowel obstruction or diverticulitis Dictated By: Apolinar Ye MD Procedure(s): XR chest 1V portable Accession Number(s): [id number] cc: Jacinto Diaz MD; Sagar Garcia MD; Apolinar Ye MD~ Examination: AP chest single view Technique: AP portable upright chest single view Date and time: March 01, 2025 1949 hrs., Comparison January 25, 2025 Indications: Shortness of breath chest pain today Findings: Minimal prominence left ventricle. No pneumonia or pulmonary edema. Mild osteopenia. Impression: No active disease. Dictated By: Apolinar Ye MD <Zonia Aguiar MD - Last Filed: 03/02/25 09:34> Objective Laboratory: Laboratory Last Values WBC 5.4 Thou/mm3 (3.8-10.6) 03/01/25 21:40 RBC 4.03 Miln/mm3 (4.50-5.90) L 03/01/25 21:40 Hgb 11.5 g/dL (13.5-16.0) L 03/01/25 21:40 Hct 35.5 % (41.0-53.0) L 03/01/25 21:40 MCV 88 fL (80-100) 03/01/25 21:40 MCH 28.5 pg (25.0-35.0) 03/01/25 21:40 MCHC 32.4 g/dl (31.0-37.0) 03/01/25 21:40 RDW Std Deviation 46.0 fL (35.1-43.9) H 03/01/25 21:40 Plt Count 69 Thou/mm3 (140-440) L D 03/01/25 21:40 Neut % (Auto) 76 % (37-80) 03/01/25 21:40 Lymph % (Auto) 16 % (10-50) 03/01/25 21:40 [place] % (Auto) 6 % (0-12) 03/01/25 21:40 Eos % (Auto) 1 % (0-10) 03/01/25 21:40 Baso % (Auto) 1 % (0-2.5) 03/01/25 21:40 Neut # (Auto) 4.1 Thou/mm3 (1.8-7.7) 03/01/25 21:40 Lymph # (Auto) 0.9 Thou/mm3 (1.0-4.8) L 03/01/25 21:40 [place] # (Auto) 0.4 Thou/mm3 (0.0-0.8) 03/01/25 21:40 Eos # (Auto) 0.1 Thou/mm3 (0.0-0.5) 03/01/25 21:40 Baso # (Auto) 0.0 Thou/mm3 (0.0-0.2) 03/01/25 21:40 Immature Gran # (Auto) 0.02 Thou/mm3 (0.00-0.00) H 03/01/25 21:40 Absolute Nucleated RBC 0.00 Thou/mm3 (0.00-0.00) 03/01/25 21:40 Immature Gran % 0 % (0-0) 03/01/25 21:40 Nucleated RBC % 0 /100 WBC (0) 03/01/25 21:40 ESR 27 mm/hr (0-20) H 03/01/25 21:40 PT 11.9 Seconds (9.0-12.2) 03/01/25 21:40 INR 1.1 (0.9-1.3) 03/01/25 21:40 APTT 28.7 Seconds (22.0-36.0) 03/01/25 21:40 VBG pH 7.38 (7.33-7.66) 03/01/25 21:40 VBG pCO2 38 mmHg (36-56) 03/01/25 21:40 VBG pO2 100 mmHg (15-58) H 03/01/25 21:40 VBG O2 Sat (Sandie) 98 % (96-97) H 03/01/25 21:40 VBG Base Excess -3 (-3-3) 03/01/25 21:40 Sodium 146 mMol/L (136-145) H 03/01/25 21:40 Potassium 2.7 mMol/L (3.4-5.1) L* 03/01/25 21:40 Chloride 109 mMol/L (98-107) H 03/01/25 21:40 Carbon Dioxide 22.2 mMol/L (20.0-31.0) 03/01/25 21:40 Anion Gap 15 (7-16) 03/01/25 21:40 BUN 8 mg/dL (9-23) L 03/01/25 21:40 Creatinine 0.9 mg/dL (0.6-1.3) 03/01/25 21:40 Estim Creat Clear Calc 124.2 mL/min (>60) 03/01/25 21:40 eGFR > 60 See Note (60-) 03/01/25 21:40 BUN/Creatinine Ratio 9 Ratio (12-20) L 03/01/25 21:40 Glucose 93 mg/dL (74-106) 03/01/25 21:40 Calculated Osmolality 288 (275-295) 03/01/25 21:40 Calcium 8.4 mg/dL (8.3-10.6) 03/01/25 21:40 Corrected Calcium 8.4 mg/dL (8.5-10.1) L 03/01/25 21:40 Magnesium 1.8 mg/dL (1.6-2.6) 03/01/25 21:40 Total Bilirubin 1.0 mg/dL (0.3-1.2) 03/01/25 21:40 Direct Bilirubin 0.5 mg/dL (0.0-0.3) H 03/01/25 21:40 AST 179 U/L (0-34) H 03/01/25 21:40 ALT 73 U/L (10-49) H 03/01/25 21:40 Alkaline Phosphatase 300 U/L (46-116) H 03/01/25 21:40 Ammonia 66 uMol/L (11-32) H 03/01/25 21:40 Total Creatine Kinase 228 U/L (34-171) H 03/01/25 21:40 Troponin I < 0.020 ng/mL (0.0-0.045) 03/01/25:40 C-Reactive Prot, Quant < 0.5 mg/dL (0.0-0.9) 03/01/25 21:40 B-Natriuretic Peptide 54 pg/mL (0-100) 03/01/25 21:40 Total Protein 7.6 gm/dL (5.7-8.2) 03/01/25 21:40 Albumin 4.5 gm/dL (3.5-5.0) 03/01/25 21:40 Globulin 3.1 gm/dL (2.3-3.5) 03/01/25 21:40 Albumin/Globulin Ratio 1.5 (1.2-2.2) 03/01/25 21:40 Amylase 42 U/L (30-118) 03/01/25 21:40 Beta-Hydroxybutyrate/Acetoacetate 0.2 mmol/L (<0.6) 03/01/25 21:40 Procalcitonin 0.20 ng/ml (0.0-0.49) 03/01/25 21:40 TSH 1.93 uIU/mL (0.55-4.78) 03/01/25 21:40 Ur Collection Type Clean Catch 03/01/25 04:56 Urine Color Yellow (Lt Yel-Yel) 03/01/25 04:56 Urine Clarity Clear (Clear/Hazy) 03/01/25 04:56 Urine pH 7.0 (5.0-7.0) 03/01/25 04:56 Ur Specific [place] 1.035 (1.001-1.035) 03/01/25 04:56 Urine Protein Trace (Neg - Trace) 03/01/25 04:56 Urine Glucose (UA) Negative (Negative) 03/01/25 04:56 Urine Ketones Trace (Negative) 03/01/25 04:56 Urine Blood Negative (Negative) 03/01/25 04:56 Urine Nitrite Negative (Negative) 03/01/25 04:56 Urine Bilirubin Negative (Negative) 03/01/25 04:56 Urine Urobilinogen (Auto) 2.0 mg/dL (0.0-1.0) 03/01/25 04:56 Ur Leukocyte Esterase Negative (Negative) 03/01/25 04:56 Urine RBC 5 /hpf (0-3) H 03/01/25 04:56 Urine WBC 2 /hpf (0-5) 03/01/25 04:56 Ur Squamous Epith Cells 0 /hpf (0-5) 03/01/25 04:56 Urine Bacteria Rare (None) 03/01/25 04:56 Hyaline Casts 1 /hpf (0-1) 03/01/25 04:56 Ur Culture Indicated? Not Indicated 03/01/25 04:56 Urine Opiates Screen Negative (Negative) 03/01/25 04:56 Urine Fentanyl Screen Negative (Negative) 03/01/25 04:56 Ur Barbiturates Screen Negative (Negative) 03/01/25 04:56 U Amphetamin/Meth Scrn Positive (Negative) A 03/01/25 04:56 U Benzodiazepines Scrn Negative (Negative) 03/01/25 04:56 U Cocaine Metab Screen Negative (Negative) 03/01/25 04:56 U Marijuana (THC) Screen Negative (Negative) 03/01/25 04:56 Ethyl Alcohol 298.0 mg/dL (0-10.0) H 03/01/25 21:40 Misc Test Result Platelets confirmed 03/01/25 21:40
[2025-03-02] MEDS: DIAZEPAM 5 MG TABLET PO (06:59)
--- NOTE | 2025-03-02 07:25 | XR_ITS ---
Examination: HIDA, hepatobiliary radioisotope scan . Date and time of exam: March 04, 2025 1633 hours INDICATIONS: Alcohol disorder, methamphetamine abuse, recurrent abdominal pain since yesterday, elevated bilirubin and liver function tests on laboratory examination yesterday, thickened gallbladder wall 0.5 cm on ultrasound 03/01/2025 Technique: 6.2 mCi of 99M Hepatolite administered. Serial imaging then obtained from immediate through 60 minutes. Findings: Radioisotope activity within the liver is reasonably homogenous. Abdomen bile duct small bowel activity noted Impression: Gallbladder activity, cystic duct obstruction pattern
[2025-03-02] MEDS: PHENobarbital Inj 130 MG, SODIUM CHLORIDE 0.9% FLUSH 12 ML IVP ×2 (08:28→10:36)
[2025-03-02 09:07] LABS: Alanine Aminotransferase 72 U/L (10-49); Albumin, Serum 4.2 gm/dL (3.5-5.0); Albumin/Globulin Ratio 1.6 (1.2-2.2); Alkaline Phosphatase 297 U/L (46-116); Anion Gap 13 (7-16); Aspartate Amino Transferase 194 U/L (0-34); BUN/Creatinine Ratio 8 Ratio (12-20); Bilirubin,Total 1.9 mg/dL (0.3-1.2); Blood Urea Nitrogen 6 mg/dL (9-23); Calcium 8.5 mg/dL (8.3-10.6); Calcium (Corrected) 8.5 mg/dL (8.5-10.1); Carbon Dioxide 24.2 mMol/L (20.0-31.0); Chloride 104 mMol/L (98-107); Creatinine (Component) 0.8 mg/dL (0.6-1.3); Estimated Creatinine Clearance 139.8 mL/min (>60); Globulin 2.7 gm/dL (2.3-3.5); Glucose 82 mg/dL (74-106); Osmolality,Calculated 277 (275-295); Potassium 3.4 mMol/L (3.4-5.1); Sodium 141 mMol/L (136-145); Total Protein 6.9 gm/dL (5.7-8.2); eGFR > 60 See Note
--- NOTE | 2025-03-02 09:24 | ECHO_ITS ---
Transthoracic Echo Report Ht (in): 73 Wt (lb): 240 Exam Location: Echo Lab Status: Emergency Home Weatherizing Worker: Magaly Llamas Indications: Procedure Performed: BP: 167 / 101 HR: 82 MEASUREMENTS (Male / Female) Normal Values 2D ECHO LV Diastolic Diameter PLAX 5.6 cm 4.2 - 5.9 / 3.9 - 5.3 cm LV Systolic Diameter PLAX 2.0 cm IVS Diastolic Thickness 1.2 cm 0.6 - 1.0 / 0.6 - 0.9 cm LVPW Diastolic Thickness 0.9 cm 0.6 - 1.0 / 0.6 - 0.9 cm LV Relative Wall Thickness 0.4 LVOT Diameter 2.0 cm LA Volume Index 30.8 cm?/m? 16 - 28 cm?/m? Ascending Aorta Diameter 3.2 cm M-MODE AV Cusp Separation MM 1.2 cm DOPPLER AV Peak Velocity 184.0 cm/s AV Peak Gradient 13.5 mmHg AV Mean Gradient 6.0 mmHg AV Velocity Time Integral 33.2 cm LVOT Peak Velocity 108.0 cm/s LVOT Peak Gradient 4.7 mmHg LVOT Velocity Time Integral 20.5 cm LVOT Cardiac Index 2204.0 cm?/min?m? AV Area Cont Eq vti 1.9 cm? AV Area Cont Eq pk 1.8 cm? MV Area PHT 4.6 cm? Mitral E Point Velocity 74.8 cm/s Mitral A Point Velocity 91.7 cm/s Mitral E to A Ratio 0.8 LV E' Lateral Velocity 6.0 cm/s Mitral E to LV E' Lateral Ratio 12.5 LV E' Septal Velocity 5.4 cm/s Mitral E to LV E' Septal Ratio 13.8 TR Peak Velocity 212.0 cm/s TR Peak Gradient 18.0 mmHg PV Peak Velocity 113.0 cm/s PV Peak Gradient 5.1 mmHg FINDINGS Left Ventricle Normal left ventricular size, wall thickness, systolic function with no obvious regional wall motion abnormalities. Normal left ventricular diastolic filling pattern for age. The ejection fraction is visually estimated at 55-60 %. Right Ventricle The right ventricle is normal in size and systolic function. The estimated right ventricular systolic pressure, 18mmHg with RAP 3. Left Atrium The left atrial cavity size is mildly increased. Right Atrium The right atrium is normal by two-dimensional imaging, color flow and Doppler imaging with no structural abnormalities, no thrombus formation present. Atrial Septum The interatrial septum appears normal with no evidence of a shunt. Aorta The aorta is normal by two-dimensional, color flow and Doppler interrogation. Mitral Valve The mitral valve is normal by two-dimensional, color flow and Doppler interrogation. Trace mitral regurgitation. Aortic Valve The aortic valve is trileaflet and normal by two-dimensional, color flow and Doppler interrogation. There is no significant aortic valve regurgitation. Tricuspid Valve The tricuspid valve is normal by two-dimensional, color flow and Doppler interrogation. There is trace tricuspid valve regurgitation. Pulmonic Valve The pulmonic valve is not well visualized. There is no significant pulmonic valve regurgitation. Vessels The pulmonary artery appears normal. The inferior vena cava pulmonary and hepatic veins appear normal. Pericardium There is a trivial pericardial effusion. CONCLUSIONS Indication: meth use, C/F heart failure Normal left ventricular size and function. Approximate ejection fraction is 55- 60%. Stage 1 diastolic dysfunction Normal right ventricular size and function. Estiomated RVSP 25- 30 mm hg. Trace mitral and mild tricuspid regurgitation noted. Mild Aortic valve sclerosis without stenosis. Mildly dilated LA No Pericardial effusion Herve Zuniga (Electronically Signed) Final Date: 04 March 2025 09:00
--- NOTE | 2025-03-02 09:33 | EKG_ITS ---
[facility] Test Date: 2025-03-02 Pat Name: CECY PINEDA Department: Room: - Gender: Male Pediatric Nephrologist: : 1975 Requested By: Zonia Jama Order Number: [id number] Reading MD: Zonia Jama Measurements Intervals [place] Rate: 84 P: 47 AK: 147 QRS: 25 QRSD: 97 T: 54 QT: 405 QTc: 480 Interpretive Statements SINUS RHYTHM Compared to ECG 03/01/2025 19:18:47 Myocardial infarct finding no longer present /store/[id number]
[2025-03-02] MEDS: SODIUM CHLORIDE 0.9% 1000 ML 1,000 ML 150 ML IV (10:42)
[2025-03-02] MEDS: LABETALOL INJ 5 MG/ML VIAL 20 ML 10 MG IVP ×3 (10:46→21:33)
[2025-03-02] MEDS: FOLIC ACID INJ 1 MG/0.2 ML IVP (11:43)
--- NOTE | 2025-03-02 11:51 | ESHP_ITS ---
<Statement entered by Hansel Estrada MD - 03/06/25 17:40> I reviewed above note and agree with findings and plans. I have also personally examined the patient with medicine team and went over assessment and plan with medical team including data analysis intern and resident physician. <Statement entered by Saima Kaur MD - 03/02/25 12:50> Patient is 50 yr male with PMH of hypertension, alcohol use disorder, methamphetimine use disorder, recuurent admissions due to abdominal pain who presented to ED due to reoccurring abdominal pain since yesterday morning. Patient typically drinks 8 beers a day since past 4 years. His last drink was yesterday evening. Endorsing nausea, vomiting, headache, diarrhea. Most recent admission was on 02/06. Patient was to undergo appendectomy by surgery however he left AMA. CIWA score initially 18 at bedside and was given phenobarbital x 2 while in the ED. patient also had electrolyte disturbances including hypokalemia with a potassium of 2.7. Potassium was repleted. Will admit patient for alcohol withdrawal, hypertensive urgency (191/105) and continue CIWA protocol with seizure precautions and scheduled Librium 50mg q6hr. HIDA scan and u/s liver are pending. Consult surgery Dr. Blood for evaluation of RLQ, concern for appendicitis. IV labetalol 10 mg for SBP >180. The patient's management plan was discussed with my attending physician Dr. Estrada. Saima Kaur, PGY-2 Documentation for date of: 03/02/25 HPI History of Present Illness Chief complaint: RLQ pain and etoh withdrawl History of present illness: Mr. Goddard is a 50-year-old gentleman with history of uncontrolled hypertension, alcohol use disorder, methamphetimine use disorder, with multiple prior presentations to the emergency department for RLQ pain found to have chronic appendicitis has been previously admitted for appendicitis, Surgery was consulted but patient declined surgery at that time and was sent out on Augmentin however patient reports that he did not complete course of antibiotics and represented to the emergency department with right lower quadrant pain surgery had been consulted at that time who recommended laparoscopic appendectomy patient was again did not want surgery at that time was just discharged with Augmentin. patient reports desire to stop drinking alcohol. While in the ed patient was strongly encouraged to stay in hospital despite expressing desire to leave AMA after phenobarb given Patient sister Genesis is present ([phone]) Social history: 18+ beers per day he is housed, however family notes that he is frequently found on the streets., Endorses methamphetamine use UTOX positive for methamphetamine last drink of alcohol was 03/01 afternoon Medications: Medication reconciliation pending Review of systems Patient endorses right lower quadrant pain diarrhea fevers chills Patient denies constipation, anorexia, fevers, sweats ED course Vital signs notable for blood pressure 186/107 Labs notable for elevated LFTs elevated alk phos to 300, elevated ammonia 66, alcohol level 298, elevated ESR, hypokalemia 2.7 -> 3.4 (after 50 mill equivalents IV) Imaging notable for - CT head negative for acute hemorrhage, mass effect or midline shift - Gallbladder ultrasound with gallstones (recommend HIDA or MRCP) - CTAP without appendicitis findingsnor bowel obstruction or diverticulitis, no renal or ureteral colliculi no hydronephrosis hepatosplenomegaly noted and no evidence of pulmonary edema or pleural disease - pending HIDA Tx 50 mL equivalents of potassium chloride Thiamine 100 mg IV push x 1 Ketorolac 30 mg IV push one-time Diazepam 10 mg IV push one-time Diazepam 5 mg p.o. x 1 Famotidine 20 mg IV push x 1 Zofran 4 mg IV push x 1 Phenobarbital 130 mg x 2 Labetalol 10 mg IV push x 1 Review of Systems Review of Systems Narrative Review of Systems: as per hpi Exam Vital Signs Temp Pulse Resp BP Pulse Ox O2 Del Method 98.5 F 76 16 175/99 H 97 Room Air 03/02/25 11:48 03/02/25 11:48 03/02/25 11:48 03/02/25 11:48 03/02/25 11:48 03/02/25 11:48 Narrative Exam GENERAL: no acute distress, AAO x3, comfortably laying in bed (had recently been given phenobarb) HEENT: Head AT/ NC. Mucous membranes dry. PERRL. NECK: Supple, no lymphadenopathy, no carotid bruits. CARDIOVASCULAR: RRR. Normal S1/S2, No m/r/g. No pitting edema of bilateral LEs. RESPIRATORY: CTAB. No wheezing, rhonchi, crackles. GASTROINTESTINAL: Abdomen soft, RLQ tenderness to deep palpation no palpable masses. Bowel sounds present MUSCULOSKELETAL:? No cyanosis or edema, no visible joint swelling. NEUROLOGICAL: CN II-XII grossly intact. No focal deficits. Sensation intact, symmetric. Gait not assessed PSYCHIATRIC:somnolent yet arousable, not agitated, normal mood and affect. SKIN: No obvious rashes, no jaundice, normal turgor. Results: Labs 03/01/25 21:40 03/02/25 08:00 Labs: Short CBC 03/01/25 Range/Units 21:40 WBC 5.4 (3.8-10.6) Thou/mm3 Hgb 11.5 L (13.5-16.0) g/dL Hct 35.5 L (41.0-53.0) % Plt Count 69 L D (140-440) Thou/mm3 BMP 03/01/25 03/02/25 21:40 08:00 Sodium 146 H 141 Potassium 2.7 L* 3.4 D Chloride 109 H 104 Carbon Dioxide 22.2 24.2 BUN 8 L 6 L Creatinine 0.9 0.8 Glucose 93 82 Calcium 8.4 8.5 Cardiac Enzymes 03/01/25 Range/Units 21:40 Total Creatine Kinase 228 H (34-171) U/L Troponin I < 0.020 (0.0-0.045) ng/mL Liver Function 03/01/25 03/02/25 Range/Units 21:40 08:00 Total Bilirubin 1.0 1.9 H D (0.3-1.2) mg/dL Direct Bilirubin 0.5 H (0.0-0.3) mg/dL AST 179 H 194 H (0-34) U/L ALT 73 H 72 H (10-49) U/L Alkaline Phosphatase 300 H 297 H (46-116) U/L Albumin 4.5 4.2 (3.5-5.0) gm/dL Urine 03/01/25 Range/Units 04:56 Urine Color Yellow (Lt Yel-Yel) Urine Clarity Clear (Clear/Hazy) Urine pH 7.0 (5.0-7.0) Ur Specific [place] 1.035 (1.001-1.035) Urine Protein Trace (Neg - Trace) Urine Glucose (UA) Negative (Negative) ABG Interpretation ABG results: 03/01/25 21:40 VBG pH 7.38 VBG pCO2 38 VBG pO2 100 H VBG Base Excess -3 Quality Measures Quality Measures VTE prophylaxis Medications Home Medications and Allergies Home Medications ?Medication ?Instructions ?Recorded ?Confirmed ?Type albuterol sulfate 90 mcg/actuation 1 inh inhalation BI D PRN 12/26/24 03/02/25 History aerosol inhaler bronchospasm Held on 03/02/25. Instructions: stooped all meds because he drinks alcohol baclofen 10 mg tablet 10 mg PO Q8H PRN muscle spas m 12/26/24 03/02/25 History Held on 03/02/25. Instructions: drinks alcohol Allergies Allergy/AdvReac Type Severity Reaction Status Date / Time No Known Allergies Allergy Verified 03/01/25 18:36 Visit Medications Chlordiazepoxide HCl (Chlordiazepoxide Hcl 25 Mg Capsule) 50 mg PO Q6HR ROYER Stop: 03/05/25 09:27 Enoxaparin Sodium (Enoxaparin Sod Inj 40 Mg/0.4 Ml Syringe) 40 mg SC QDAY ROYER; Protocol Stop: 03/17/25 08:59 Folic Acid (Folic Acid Inj 1 Mg/0.2 Ml) 1 mg IVP QDAY ROYER Stop: 04/01/25 09:44 Last Admin: 03/02/25 11:43 Dose: 1 mg Sodium Chloride (Ns) 1,000 mls @ 150 mls/hr IV .Q6H40M ONE Stop: 03/02/25 17:02 Last Admin: 03/02/25 10:42 Dose: 150 mls/hr Lorazepam (Lorazepam 0.5 Mg Tablet) 0.5 mg PO Q4HR PRN PRN Reason: CIWA Score 2-6 Stop: 03/07/25 09:43 Lorazepam (Lorazepam 0.5 Mg Tablet) 1 mg PO Q4HR PRN PRN Reason: CIWA SCORE 7-11 Stop: 03/07/25 09:43 Lorazepam (Lorazepam 0.5 Mg Tablet) 2 mg PO Q4HR PRN PRN Reason: CIWA SCORE 12-15 Stop: 03/07/25 09:43 Ondansetron HCl (Ondansetron Inj 2 Mg/Ml Inj 2 Ml) 4 mg IVP Q6H PRN; Protocol PRN Reason: NAUSEA OR VOMITING Stop: 04/01/25 09:19 Thiamine HCl (Thiamine Inj 100 Mg/Ml Vial 2 Ml) 100 mg IVP QDAY ROYER; Protocol Stop: 04/02/25 08:59 Discontinued Medications Phenobarbital Sodium 130 mg/ (Sodium Chloride 12 ml) 0 mg IVP X1 ONE Stop: 03/02/25 07:30 Last Admin: 03/02/25 08:28 Dose: 130 mg Phenobarbital Sodium 130 mg/ (Sodium Chloride 12 ml) 0 mg IVP X1 ONE Stop: 03/02/25 09:34 Last Admin: 03/02/25 10:36 Dose: 130 mg Diazepam (Diazepam Inj 5 Mg/Ml Vial 2 Ml) 10 mg IVP X1 ONE Stop: 03/01/25 19:14 Last Admin: 03/01/25 19:55 Dose: 10 mg Diazepam (Diazepam 5 Mg Tablet) 5 mg PO X1 ONE Stop: 03/02/25 06:48 Last Admin: 03/02/25 06:59 Dose: 5 mg Diazepam (Diazepam Inj 5 Mg/Ml Vial 2 Ml) 2.5 mg IVP Q2HR PRN; Protocol PRN Reason: CIWA SCORE 8-13 Stop: 03/07/25 09:25 Famotidine (Famotidine Inj 10 Mg/Ml Vial 2 Ml) 20 mg IVP X1 ONE Stop: 03/01/25 19:15 Last Admin: 03/01/25 19:55 Dose: 20 mg Sodium Chloride (Ns) 1,000 mls @ 999 mls/hr IV .Q1H1M ONE Stop: 03/01/25 20:13 Last Infusion: 03/01/25 20:56 Dose: Infused Sodium Chloride (Ns) 1,000 mls @ 999 mls/hr IV .Q1H1M ONE Stop: 03/01/25 20:14 Last Infusion: 03/01/25 20:56 Dose: Infused Potassium Chloride (Kcl Ivpb) 10 meq in 100 mls @ 100 mls/hr IV X1 ONE Stop: 03/02/25 00:29 Last Infusion: 03/02/25 01:08 Dose: Infused Lactated Ringer's (Lactated Ringers) 1,000 mls @ 1,000 mls/hr IV .Q1H ONE Stop: 03/02/25 00:30 Last Infusion: 03/02/25 01:01 Dose: Infused Potassium Chloride (Kcl Ivpb) 10 meq in 100 mls @ 100 mls/hr IV Q1H ROYER Stop: 03/02/25 11:25 Last Admin: 03/02/25 11:44 Dose: 100 mls/hr Ketorolac Tromethamine (Ketorolac Inj 30 Mg/Ml Vial) 30 mg IVP X1 ONE Stop: 03/01/25 19:14 Last Admin: 03/01/25 19:54 Dose: 30 mg Labetalol HCl (Labetalol Inj 5 Mg/Ml Vial 20 Ml) 10 mg IVP X1 ONE Stop: 03/02/25 09:35 Last Admin: 03/02/25 10:46 Dose: 10 mg Ondansetron HCl (Ondansetron Inj 2 Mg/Ml Inj 2 Ml) 4 mg IVP X1 ONE; Protocol Stop: 03/01/25 19:14 Last Admin: 03/01/25 19:53 Dose: 4 mg Pantoprazole Sodium (Pantoprazole Inj 40 Mg Vial) 40 mg IVP X1 ONE Stop: 03/01/25 19:15 Last Admin: 03/01/25 19:55 Dose: 40 mg Potassium Chloride (Potassium Chloride 10% 20 Meq/15 Ml Udc) 40 meq PO X1 ONE Stop: 03/01/25 23:31 Last Admin: 03/02/25 00:01 Dose: 40 meq Thiamine HCl (Thiamine Inj 100 Mg/Ml Vial 2 Ml) 100 mg IVP X1 ONE Stop: 03/01/25 19:14 Last Admin: 03/01/25 19:54 Dose: 100 mg Assessment & Plan Plan Mr. Goddard is a 50-year-old gentleman with hypertension?poorly controlled, alcohol use disorder, methamphetamine use disorder with multiple prior presentations to the emergency department and admissions for right lower quadrant pain found to have appendicitis however patient declined surgery and sent out on patient presented to the emergency department with right lower quadrant pain and elevated ethyl alcohol levels, admitted for etoh withdrawl and hypertensive urgency Hypertensive Urgency pt reports not taking any of his home meds. may have been previously prescribed amlodipine 5. however bp while inpatient are 180s despite labetelol x1 push. - labetelol 10 mg IV x2 - goal BP, avoid dropping bp >15%, goal sbp~160s Acute Liver Injury Transaminitis 2/2 AUD EtOH withdrawl ethyl blood level; 298 hyperbillirubinemia 1.9. thrombocytopenia,PLT 69, coag panel wnl GB ultrasound with gallstones, normal gall bladder Last drink was 03/01 @1200. PLAN - pending HIDA scan - CIWA protocol librium 50 mg q6hr ativan PRN for agitation per protocol - thaimine qd - multivitamine qd - folate qd Hypokalemia - improving suspect 2/2 gi losses and poor po intake given 70 Meq today Kcl - pending additional 40 meq kcl iv - f/u afternoon BMP Methmaphetamine Use disorder - pending echo - [employer] travel [employer] counselor patieint on discontinuing meth use. Chronic appendicitis pt with history of multiple presentations to the ed for RLQ pain, found to have chronic appendicities, previously evaluated by Dr. Blood who recommended abx outpatient, Dx - CTAP without evidence of appendicitis - elevated esr Tx - follow up outpatient with Dr. Blood - ctm for worsening signs of infection/acute abdomen. Dispo: tele, pending gen surg consultation given c/f appendicites. on ciwa Diet: Peptic ulcer Diet , bland Bowel Reg: senna prn VTE ppx: Lovenox GI ppx: protonix 40 qd IV Code status: FULL Plan discussed with Dr. Kaur, and Dr. Sean Schwab MD PGY1
[2025-03-02 12:59] LABS: Anion Gap 12 (7-16); BUN/Creatinine Ratio 11 Ratio (12-20); Blood Urea Nitrogen 8 mg/dL (9-23); Calcium 8.3 mg/dL (8.3-10.6); Carbon Dioxide 23.6 mMol/L (20.0-31.0); Chloride 102 mMol/L (98-107); Creatinine (Component) 0.7 mg/dL (0.6-1.3); Estimated Creatinine Clearance 159.7 mL/min (>60); Glucose 75 mg/dL (74-106); Osmolality,Calculated 272 (275-295); Potassium 3.3 mMol/L (3.4-5.1); Sodium 138 mMol/L (136-145); eGFR > 60 See Note
--- NOTE | 2025-03-02 20:08 | PC.NURSE ---
Notified Dr Izquierdo of BP of 178/103, CIWA 4 with a c/o abdominal pain, currently giving ativan 0.5 mg for CIWA scoring, Dr instructed to retake in 10-15 min and call back, care continued.
--- NOTE | 2025-03-02 22:18 | PC.NURSE ---
Notified Dr Izquierdo regarding BP of 166/106, HR 76 after receiving Labetalol 10 mg IVP, Dr joyceed, no new orders, care continued
[2025-03-03] VITALS (12 sets, daily range): BP systolic 140–167; BP diastolic 87–101; PULSE 76–89; RESP 16–95; TEMP 36.5–37.2; O2SAT 95–97; BMI 29.2
[2025-03-03 05:36] LABS: Basophils # (Auto) 0.0 Thou/mm3 (0.0-0.2); Basophils % (Auto) 1 % (0-2.5); Eosinophils # (Auto) 0.1 Thou/mm3 (0.0-0.5); Eosinophils % (Auto) 2 % (0-10); Hematocrit 32.6 % (41.0-53.0); Hemoglobin 10.8 g/dL (13.5-16.0); Immature Granulocytes Auto 0.01 Thou/mm3 (0.00-0.00); Lymphocytes # (Auto) 0.6 Thou/mm3 (1.0-4.8); Lymphocytes % (Auto) 10 % (10-50); Mean Corpuscular HGB Conc 33.1 g/dl (31.0-37.0); Mean Corpuscular Hemoglobin 29.0 pg (25.0-35.0); Mean Corpuscular Volume 87 fL (80-100); Monocytes # (Auto) 0.4 Thou/mm3 (0.0-0.8); Monocytes % (Auto) 7 % (0-12); Neutrophils # (Auto) 4.9 Thou/mm3 (1.8-7.7); Neutrophils % (Auto) 81 % (37-80); Nucleated Red Blood Cell # 0.00 Thou/mm3 (0.00-0.00); Nucleated Red Blood Cell % 0 /100 WBC (0); RDW Standard Deviation 45.0 fL (35.1-43.9); Red Blood Count 3.73 Miln/mm3 (4.50-5.90); White Blood Count 6.1 Thou/mm3 (3.8-10.6)
[2025-03-03 05:54] LABS: Alanine Aminotransferase 68 U/L (10-49); Albumin, Serum 4.0 gm/dL (3.5-5.0); Albumin/Globulin Ratio 1.6 (1.2-2.2); Alkaline Phosphatase 303 U/L (46-116); Anion Gap 10 (7-16); Aspartate Amino Transferase 168 U/L (0-34); BUN/Creatinine Ratio 13 Ratio (12-20); Bilirubin,Total 2.3 mg/dL (0.3-1.2); Blood Urea Nitrogen 9 mg/dL (9-23); Calcium 8.8 mg/dL (8.3-10.6); Calcium (Corrected) 8.8 mg/dL (8.5-10.1); Carbon Dioxide 26.1 mMol/L (20.0-31.0); Chloride 102 mMol/L (98-107); Creatinine (Component) 0.7 mg/dL (0.6-1.3); Estimated Creatinine Clearance 159.7 mL/min (>60); Globulin 2.5 gm/dL (2.3-3.5); Glucose 100 mg/dL (74-106); Magnesium 1.4 mg/dL (1.6-2.6); Osmolality,Calculated 274 (275-295); Phosphorous 2.5 mg/dL (2.4-5.1); Potassium 3.4 mMol/L (3.4-5.1); Sodium 138 mMol/L (136-145); Total Protein 6.5 gm/dL (5.7-8.2); eGFR > 60 See Note
[2025-03-03 05:59] LABS: Platelet Count 58 Thou/mm3 (140-440)
[2025-03-03 06:24] LABS: Slide Review Platelets confirmed
--- NOTE | 2025-03-03 07:54 | ESPR_ITS ---
<Statement entered by Hansel Estrada MD - 03/06/25 17:40> I reviewed above note and agree with findings and plans. I have also personally examined the patient with medicine team and went over assessment and plan with medical team including sport internship and resident physician. <Statement entered by Saima Kaur MD - 03/03/25 20:20> Patient examined at bedside. No overnight events, vitals are stable, CIWA score 0. AST ALT downtrending 168, 68 respectively. Continue CIWA protocol and and wean Librium to q8hr. Plan to discharge next 24-48 hrs. The patient's management plan was discussed with my attending physician Dr. Estrada. Saima Kaur, PGY-2 Documentation for date of: 03/03/25 Subjective Subjective Interval history: Mr. Goddard is a 50-year-old gentleman with hypertension?poorly controlled, alcohol use disorder, methamphetamine use disorder with multiple prior presentations to the emergency department and admissions for right lower quadrant pain found to have appendicitis however patient declined surgery and sent out on patient presented to the emergency department with right lower quadrant pain and elevated ethyl alcohol levels, admitted for etoh withdrawl and hypertensive urgency, 03/03/2025: Patient seen and examined at bedside, sleeping peacefully, no tremmors, or sweats noted. He does not have abdominal pain on exam, pending echo read. decreased librium frequency from q6hr to q8 hrs, ciwa scores low. Exam Vital Signs Temp Pulse Resp BP Pulse Ox O2 Del Method 98 F 83 16 167/101 H 95 Room Air 03/03/25 07:21 03/03/25 07:21 03/03/25 07:21 03/03/25 07:21 03/03/25 07:21 03/03/25 07:21 Narrative Exam GENERAL: no acute distress, AAO x3, comfortably laying in bed HEENT: Head AT/ NC. Mucous membranes dry. PERRL. NECK: Supple, no lymphadenopathy, no carotid bruits. CARDIOVASCULAR: RRR. Normal S1/S2, No m/r/g. No pitting edema of bilateral LEs. RESPIRATORY: CTAB. No wheezing, rhonchi, crackles. GASTROINTESTINAL: Abdomen soft,non tender to palpation no palpable masses. Bowel sounds present MUSCULOSKELETAL:? No cyanosis or edema, no visible joint swelling. NEUROLOGICAL: CN II-XII grossly intact. No focal deficits. Sensation intact, symmetric. Gait not assessed PSYCHIATRIC:somnolent yet arousable, not agitated, normal mood and affect. SKIN: No obvious rashes, no jaundice, normal turgor. Objective Labs 03/03/25 05:17 03/03/25 05:17 Labs: Laboratory Results - last 24 hr 03/02/25 03/02/25 03/03/25 08:00 11:31 05:17 WBC 6.1 RBC 3.73 L Hgb 10.8 L Hct 32.6 L MCV 87 MCH 29.0 MCHC 33.1 RDW Std Deviation 45.0 H Plt Count 58 L Neut % (Auto) 81 H Lymph % (Auto) 10 Baker % (Auto) 7 Eos % (Auto) 2 Baso % (Auto) 1 Neut # (Auto) 4.9 Lymph # (Auto) 0.6 L Baker # (Auto) 0.4 Eos # (Auto) 0.1 Baso # (Auto) 0.0 Immature Gran # (Auto) 0.01 H Absolute Nucleated RBC 0.00 Immature Gran % 0 Nucleated RBC % 0 Sodium 141 138 138 Potassium 3.4 D 3.3 L 3.4 Chloride 104 102 102 Carbon Dioxide 24.2 23.6 26.1 Anion Gap 13 12 10 BUN 6 L 8 L 9 Creatinine 0.8 0.7 0.7 Estim Creat Clear Calc 139.8 159.7 159.7 eGFR > 60 > 60 > 60 BUN/Creatinine Ratio 8 L 11 L 13 Glucose 82 75 100 Calculated Osmolality 277 272 L 274 L Calcium 8.5 8.3 8.8 Corrected Calcium 8.5 8.8 Phosphorus 2.5 Magnesium 1.4 L Total Bilirubin 1.9 H D 2.3 H AST 194 H 168 H ALT 72 H 68 H Alkaline Phosphatase 297 H 303 H Total Protein 6.9 6.5 Albumin 4.2 4.0 Globulin 2.7 2.5 Albumin/Globulin Ratio 1.6 1.6 Misc Test Result Platelets confirmed Blood Type O Positive Antibody Screen NEGATIVE Blood Bank Wristband ID Yes ABG Interpretation ABG results: 03/01/25 21:40 VBG pH 7.38 VBG pCO2 38 VBG pO2 100 H VBG Base Excess -3 Quality Measures Quality Measures VTE prophylaxis Assessment & Plan Assessment Current Active Medications: Generic Name Dose Route Start Last Admin Trade Name Cruz PRN Reason Stop Dose Admin Amlodipine Besylate 5 mg 03/02/25 16:30 03/02/25 16:30 Amlodipine Besylate 5 Mg Tablet PO 04/01/25 16:29 5 mg QDAY [facility] Administration Chlordiazepoxide HCl 50 mg 03/02/25 12:25 03/03/25 05:43 Chlordiazepoxide Hcl 25 Mg Capsule PO 03/03/25 12:24 50 mg Q6HR ROYER Administration Enoxaparin Sodium 40 mg 03/03/25 09:00 Enoxaparin Sod Inj 40 Mg/0.4 Ml Syringe SC 03/17/25 08:59 QDAY [facility] Protocol Folic Acid 1 mg 03/02/25 09:45 03/02/25 11:43 Folic Acid Inj 1 Mg/0.2 Ml IVP 04/01/25 09:44 1 mg QDAY [facility] Administration Magnesium Sulfate 4 gm in 50 mls @ 12.5 mls/hr 03/03/25 07:50 Magnesium Sulfate Ivpb IV 03/03/25 11:49 X1 ONE Lorazepam 0.5 mg 03/02/25 09:44 03/02/25 20:06 Lorazepam 0.5 Mg Tablet PO 03/07/25 09:43 0.5 mg Q4HR PRN Administration CIWA Score 2-6 Lorazepam 1 mg 03/02/25 09:44 Lorazepam 0.5 Mg Tablet PO 03/07/25 09:43 Q4HR PRN CIWA SCORE 7-11 Lorazepam 2 mg 03/02/25 09:44 Lorazepam 0.5 Mg Tablet PO 03/07/25 09:43 Q4HR PRN CIWA SCORE 12-15 Multivitamins/Minerals 15 ml 03/03/25 09:00 Multivitamin 15 Ml Udc PO 04/02/25 08:59 [facility]DH[facility] Ondansetron HCl 4 mg 03/02/25 09:20 Ondansetron Inj 2 Mg/Ml Inj 2 Ml IVP 04/01/25 09:19 Q6H PRN NAUSEA OR VOMITING Protocol Pantoprazole Sodium 40 mg 03/03/25 09:00 Pantoprazole Inj 40 Mg Vial IVP 04/02/25 08:59 [facility]DHCA [facility] Sennosides 1 tab 03/02/25 13:53 Senna/Docusate Sod 1 Tab Tablet PO 04/01/25 13:52 QDAY PRN Constipation (2days wo BM) Protocol Thiamine HCl 100 mg 03/03/25 09:00 Thiamine Inj 100 Mg/Ml Vial 2 Ml IVP 04/02/25 08:59 QDAY ROYER Protocol Plan Mr. Goddard is a 50-year-old gentleman with hypertension?poorly controlled, alcohol use disorder, methamphetamine use disorder with multiple prior presentations to the emergency department and admissions for right lower quadrant pain found to have appendicitis however patient declined surgery and sent out on patient presented to the emergency department with right lower quadrant pain and elevated ethyl alcohol levels, admitted for etoh withdrawl and hypertensive urgency, resolving. pending echo read. Hypertensive Urgency - improved HTN pt reports not taking any of his home meds. may have been previously prescribed amlodipine 5. however bp while inpatient are 180s despite labetelol x1 push. SBP 150s - on amlodipine 5 mg qd tolerating well, outpatient to titrate dose. Acute Liver Injury Transaminitis 2/2 AUD EtOH withdrawl ethyl blood level; 298 hyperbillirubinemia 1.9. thrombocytopenia,PLT 69, coag panel wnl GB ultrasound with gallstones, normal gall bladder Last drink was 03/01 @1200. PLAN - pending HIDA scan - CIWA protocol librium 50 mg q8hr, continue to wean ativan PRN for agitation per protocol - thaimine qd - multivitamine qd - folate qd Hypomagnesemia Hypokalemia - improving suspect 2/2 gi losses and poor po intake -replete as indicated Methmaphetamine Use disorder - echo taken, pending read - veterans' counselor patieint on discontinuing meth use. Chronic appendicitis pt with history of multiple presentations to the ed for RLQ pain, found to have chronic appendicities, previously evaluated by Dr. Blood who recommended abx outpatient, Dx - CTAP without evidence of appendicitis - elevated esr Tx - follow up outpatient with Dr. Blood - ctm for worsening signs of infection/acute abdomen. Dispo: tele, continues on ciwa, librium down from q6 to q8 Diet: Peptic ulcer Diet , bland Bowel Reg: senna prn VTE ppx: Lovenox GI ppx: protonix 40 qd IV Code status: FULL Plan discussed with Dr. Kaur, and Dr. Sean Schwab MD PGY1
[2025-03-03] MEDS: THIAMINE INJ 100 MG/ML VIAL 2 ML IVP (08:05)
[2025-03-03] MEDS: FOLIC ACID INJ 1 MG/0.2 ML IVP (08:05)
[2025-03-03] MEDS: MULTIVITAMIN 15 ML UDC PO (08:06)
[2025-03-03] MEDS: ENOXAPARIN SOD INJ 40 MG/0.4 ML SYRINGE SC (08:06)
[2025-03-03] MEDS: Magnesium Sulfate 4 GM Ivpb 4 GM/50 ML BAG IV (08:08)
[2025-03-04] VITALS (9 sets, daily range): BP systolic 138–165; BP diastolic 81–106; PULSE 78–90; RESP 18–20; TEMP 36.5–37.2; O2SAT 95–98; BMI 29.0
--- NOTE | 2025-03-04 05:15 | PC.NURSE ---
Report given to AYAH Sauceda
[2025-03-04 05:29] LABS: Basophils # (Auto) 0.0 Thou/mm3 (0.0-0.2); Basophils % (Auto) 1 % (0-2.5); Eosinophils # (Auto) 0.1 Thou/mm3 (0.0-0.5); Eosinophils % (Auto) 2 % (0-10); Hematocrit 34.7 % (41.0-53.0); Hemoglobin 11.4 g/dL (13.5-16.0); Immature Granulocytes Auto 0.02 Thou/mm3 (0.00-0.00); Lymphocytes # (Auto) 0.5 Thou/mm3 (1.0-4.8); Lymphocytes % (Auto) 9 % (10-50); Mean Corpuscular HGB Conc 32.9 g/dl (31.0-37.0); Mean Corpuscular Hemoglobin 28.9 pg (25.0-35.0); Mean Corpuscular Volume 88 fL (80-100); Monocytes # (Auto) 0.4 Thou/mm3 (0.0-0.8); Monocytes % (Auto) 6 % (0-12); Neutrophils # (Auto) 5.0 Thou/mm3 (1.8-7.7); Neutrophils % (Auto) 82 % (37-80); Nucleated Red Blood Cell # 0.00 Thou/mm3 (0.00-0.00); Nucleated Red Blood Cell % 0 /100 WBC (0); RDW Standard Deviation 45.0 fL (35.1-43.9); Red Blood Count 3.95 Miln/mm3 (4.50-5.90); White Blood Count 6.1 Thou/mm3 (3.8-10.6)
--- NOTE | 2025-03-04 05:29 | PC.NURSE ---
Pt came in from tele room [id number] per wheelchair, alert and oriented able to transfer independently from wheelchair to bed. Pt advised to be NPO after morning meds, verbalizes understanding.
[2025-03-04 05:33] LABS: Platelet Count 53 Thou/mm3 (140-440)
[2025-03-04] MEDS: ONDANSETRON INJ 2 MG/ML INJ 2 ML 4 MG IVP (05:40)
[2025-03-04 06:07] LABS: Alanine Aminotransferase 88 U/L (10-49); Albumin, Serum 4.2 gm/dL (3.5-5.0); Albumin/Globulin Ratio 1.6 (1.2-2.2); Alkaline Phosphatase 319 U/L (46-116); Anion Gap 10 (7-16); Aspartate Amino Transferase 205 U/L (0-34); BUN/Creatinine Ratio 13 Ratio (12-20); Bilirubin,Total 1.3 mg/dL (0.3-1.2); Blood Urea Nitrogen 9 mg/dL (9-23); Calcium 9.3 mg/dL (8.3-10.6); Calcium (Corrected) 9.3 mg/dL (8.5-10.1); Carbon Dioxide 24.3 mMol/L (20.0-31.0); Chloride 105 mMol/L (98-107); Creatinine (Component) 0.7 mg/dL (0.6-1.3); Estimated Creatinine Clearance 153.3 mL/min (>60); Globulin 2.7 gm/dL (2.3-3.5); Glucose 112 mg/dL (74-106); Magnesium 1.8 mg/dL (1.6-2.6); Osmolality,Calculated 277 (275-295); Phosphorous 2.3 mg/dL (2.4-5.1); Potassium 3.8 mMol/L (3.4-5.1); Sodium 139 mMol/L (136-145); Total Protein 6.9 gm/dL (5.7-8.2); eGFR > 60 See Note
[2025-03-04 06:28] LABS: Slide Review Platelets confirmed
--- NOTE | 2025-03-04 09:57 | PC.SS ---
SS follow up note; Patient will possibly discharge home possibly tomorrow.
[2025-03-04] MEDS: MULTIVITAMIN 15 ML UDC PO (10:18)
[2025-03-04] MEDS: FOLIC ACID INJ 1 MG/0.2 ML IVP (10:18)
[2025-03-04] MEDS: ENOXAPARIN SOD INJ 40 MG/0.4 ML SYRINGE SC (10:18)
[2025-03-04] MEDS: THIAMINE INJ 100 MG/ML VIAL 2 ML IVP (10:19)
[2025-03-04] MEDS: HYDROcodone/APAP 5/325 TABLET 1 TAB PO (10:45)
--- NOTE | 2025-03-04 13:00 | ESPR_ITS ---
<Statement entered by Hansel Estrada MD - 03/06/25 17:42> I reviewed above note and agree with findings and plans. I have also personally examined the patient with medicine team and went over assessment and plan with medical team including [employer] compliance internship and resident physician. Documentation for date of: 03/04/25 Subjective Subjective Interval history: Patient examined at bedside. No events overnight, CIWA score 0 at bedside. Complaining of RUQ pain. LFTs were rising therefore ordered HIDA and will consult surgery. Wean Librium to 50mg daily. Electrolytes repleted as needed. Start norco 5mg q4hr PRN for pain. HIDA pending. tolerating diet. Exam Vital Signs Temp Pulse Resp BP Pulse Ox O2 Del Method 98.9 F 83 20 138/94 H 96 Room Air 03/04/25 16:00 03/04/25 16:00 03/04/25 16:00 03/04/25 16:00 03/04/25 16:00 03/04/25 16:00 Narrative Exam GENERAL: no acute distress, AAO x3, comfortably laying in bed HEENT: Head AT/ NC. Mucous membranes dry. PERRL. NECK: Supple, no lymphadenopathy, no carotid bruits. CARDIOVASCULAR: RRR. Normal S1/S2, No m/r/g. No pitting edema of bilateral LEs. RESPIRATORY: CTAB. No wheezing, rhonchi, crackles. GASTROINTESTINAL: Abdomen soft, mild tender to palpation no palpable masses. Bowel sounds present MUSCULOSKELETAL:? No cyanosis or edema, no visible joint swelling. NEUROLOGICAL: CN II-XII grossly intact. No focal deficits. Sensation intact, symmetric. Gait not assessed PSYCHIATRIC: not agitated, normal mood and affect. SKIN: No obvious rashes, no jaundice, normal turgor. Objective Labs 03/04/25 05:01 03/04/25 05:01 Labs: Laboratory Results - last 24 hr 03/04/25 05:01 WBC 6.1 RBC 3.95 L Hgb 11.4 L Hct 34.7 L MCV 88 MCH 28.9 MCHC 32.9 RDW Std Deviation 45.0 H Plt Count 53 L Neut % (Auto) 82 H Lymph % (Auto) 9 L Stephenson % (Auto) 6 Eos % (Auto) 2 Baso % (Auto) 1 Neut # (Auto) 5.0 Lymph # (Auto) 0.5 L Stephenson # (Auto) 0.4 Eos # (Auto) 0.1 Baso # (Auto) 0.0 Immature Gran # (Auto) 0.02 H Absolute Nucleated RBC 0.00 Immature Gran % 0 Nucleated RBC % 0 Sodium 139 Potassium 3.8 Chloride 105 Carbon Dioxide 24.3 Anion Gap 10 BUN 9 Creatinine 0.7 Estim Creat Clear Calc 153.3 eGFR > 60 BUN/Creatinine Ratio 13 Glucose 112 H Calculated Osmolality 277 Calcium 9.3 Corrected Calcium 9.3 Phosphorus 2.3 L Magnesium 1.8 Total Bilirubin 1.3 H D AST 205 H ALT 88 H Alkaline Phosphatase 319 H Total Protein 6.9 Albumin 4.2 Globulin 2.7 Albumin/Globulin Ratio 1.6 Misc Test Result Platelets confirmed ABG Interpretation ABG results: 03/01/25 21:40 VBG pH 7.38 VBG pCO2 38 VBG pO2 100 H VBG Base Excess -3 Quality Measures Quality Measures VTE prophylaxis Assessment & Plan Assessment Current Active Medications: Generic Name Dose Route Start Last Admin Trade Name Freq PRN Reason Stop Dose Admin Amlodipine Besylate 5 mg 03/02/25 16:30 03/02/25 16:30 Amlodipine Besylate 5 Mg Tablet PO 04/01/25 16:29 5 mg QDAY ROYER Administration Chlordiazepoxide HCl 50 mg 03/02/25 12:25 03/03/25 05:43 Chlordiazepoxide Hcl 25 Mg Capsule PO 03/03/25 12:24 50 mg Q6HR ROYER Administration Enoxaparin Sodium 40 mg 03/03/25 09:00 Enoxaparin Sod Inj 40 Mg/0.4 Ml Syringe SC 03/17/25 08:59 QDAY ROYER Protocol Folic Acid 1 mg 03/02/25 09:45 03/02/25 11:43 Folic Acid Inj 1 Mg/0.2 Ml IVP 04/01/25 09:44 1 mg QDAY ROYER Administration Magnesium Sulfate 4 gm in 50 mls @ 12.5 mls/hr 03/03/25 07:50 Magnesium Sulfate Ivpb IV 03/03/25 11:49 X1 ONE Lorazepam 0.5 mg 03/02/25 09:44 03/02/25 20:06 Lorazepam 0.5 Mg Tablet PO 03/07/25 09:43 0.5 mg Q4HR PRN Administration CIWA Score 2-6 Lorazepam 1 mg 03/02/25 09:44 Lorazepam 0.5 Mg Tablet PO 03/07/25 09:43 Q4HR PRN CIWA SCORE 7-11 Lorazepam 2 mg 03/02/25 09:44 Lorazepam 0.5 Mg Tablet PO 03/07/25 09:43 Q4HR PRN CIWA SCORE 12-15 Multivitamins/Minerals 15 ml 03/03/25 09:00 Multivitamin 15 Ml Udc PO 04/02/25 08:59 QDAY [facility] Ondansetron HCl 4 mg 03/02/25 09:20 Ondansetron Inj 2 Mg/Ml Inj 2 Ml IVP 04/01/25 09:19 Q6H PRN NAUSEA OR VOMITING Protocol Pantoprazole Sodium 40 mg 03/03/25 09:00 Pantoprazole Inj 40 Mg Vial IVP 04/02/25 08:59 QDAY [facility] Sennosides 1 tab 03/02/25 13:53 Senna/Docusate Sod 1 Tab Tablet PO 04/01/25 13:52 QDAY PRN Constipation (2days wo BM) Protocol Thiamine HCl 100 mg 03/03/25 09:00 Thiamine Inj 100 Mg/Ml Vial 2 Ml IVP 04/02/25 08:59 QDAY [facility] Protocol Plan Mr. Goddard is a 50-year-old gentleman with hypertension?poorly controlled, alcohol use disorder, methamphetamine use disorder with multiple prior presentations to the emergency department and admissions for right lower quadrant pain found to have appendicitis however patient declined surgery and sent out on patient presented to the emergency department with right lower quadrant pain and elevated ethyl alcohol levels, admitted for etoh withdrawl and hypertensive urgency, resolving. pending echo read. Hypertensive Urgency-resolved HTN pt reports not taking any of his home meds. may have been previously prescribed amlodipine 5. however bp while inpatient are 180s despite labetelol x1 push. SBP 150s - on amlodipine 5 mg qd tolerating well, outpatient to titrate dose. Acute Liver Injury Transaminitis 2/2 AUD EtOH withdrawl ethyl blood level; 298 hyperbillirubinemia 1.9. thrombocytopenia,PLT 69, coag panel wnl GB ultrasound with gallstones, normal gall bladder Last drink was 03/01 @1200. PLAN - pending HIDA scan to evaluate uptrending LFTs - CIWA protocol librium 50 mg q8hr, continue to wean ativan PRN for agitation per protocol - thaimine qd - multivitamine qd - folate qd Hypomagnesemia Hypokalemia - improving suspect 2/2 gi losses and poor po intake -replete as indicated Methmaphetamine Use disorder - echo taken, pending read - claims counsel patieint on discontinuing meth use. Chronic appendicitis pt with history of multiple presentations to the ed for RLQ pain, found to have chronic appendicities, previously evaluated by Dr. Blood who recommended abx outpatient, Dx - CTAP without evidence of appendicitis - elevated esr Tx - follow up outpatient with Dr. Blood - ctm for worsening signs of infection/acute abdomen. Dispo: tele, continues on ciwa, librium daily Diet: Peptic ulcer Diet , bland Bowel Reg: senna prn VTE ppx: Lovenox GI ppx: protonix 40 qd IV Code status: FULL Plan discussed with Dr. Sean Kaur, PGY2
--- NOTE | 2025-03-04 16:32 | PC.SS ---
TOY DESIGNER conducted bedside contact with the patient conduct initial assessment and to discuss discharge planning.? Patient confirmed demographic information.? Patient resides at home with sister, Torri Mauro .? Patient does not utilize any form of DME to assist with ambulation.? Patient does not utilize home oxygen.? Patient describes the ability to complete ADL?s independently.? Patient identified sister, Torri Mauro; as surrogate medical decision maker.? Patient?s PCP is Dr. Diaz [facility].? Patient does not participate with dialysis.? Patient does not possess any specialty providers.? Patient utilizes [facility] for medication services.? Plan is for the patient to return home at the time of discharge.? Family will provide transportation on behalf of the patient.? No further discharge needs identified by the patient.? No further intervention required at this time, director of social media marketing will be available to address any further concerns.? Next of Kin: Torri Dhillonlilia D/C Plan: Home
--- NOTE | 2025-03-04 17:52 | PC.NURSE ---
Pt stated he wanted to go home today. This nurse explained to pt the current discharge plans and potential risks. Pt stated he did not want to wait and wanted to go AMA now. MD Singer notified and came to speak to pt. Pt A&O x 3 with CIWA score of 0. Pt states he needs to leave now because he has missed too many days of work. Potential risks of condition explained along with pain management and a high probability of most likely having to come back for care. Pt states he understands risks and will follow up outpatient or return to ED if symptoms worsen. IV and telemonitor D/Cd. Pt signed AMA form understanding risks and benefits. Pt was then visualized walking out of facility.
--- NOTE | 2025-03-04 20:44 | PD.RESEVENT ---
Documentation for date of: 03/04/25 Event Note Event Note: Received a phone call from patient's nurse that patient would like to leave AMA around 5 PM. Patient was aware of recent HIDA scan findings which showed gallbladder activity but cystic duct obstruction. Patient continues to have right upper quadrant pain but is somewhat relieved with [place] however patient states that he wants to leave AGAINST MEDICAL ADVICE due to the fact that he missed many days of work. Patient understands that as of right now, patient requires from a surgical consultation and patient regarding patient's current, persistent abdominal pain and findings on HIDA scan as his liver enzymes continue to be elevated. Patient was A&O x 4 and understands the risk of leaving AGAINST MEDICAL ADVICE including sepsis and even . Patient was advised to return to the ED at any time once his symptoms worsen or return. Patient signed the AMA form, and patient's nurse, Joanne was witness. Patient's plan and care discussed with my attending, Dr. Sean Rangel MD PGY-3
== END 2025-03-04 17:15 | disposition left against medical advice (07) | DRG 770 ==
LOC: SERX 03-02 07:32 → SERHOLD 03-02 09:43 → S2NX 03-02 12:59 → S3SX 03-04 05:30
PROVIDERS: Emergency Medicine; PCP Family Medicine; Visit Provider Internal Medicine
DX: F10.139 Alcohol abuse with withdrawal, unspecified (principal); F10.129 Alcohol abuse with intoxication, unspecified; I10 Essential (primary) hypertension; M06.9 Rheumatoid arthritis, unspecified; M19.90 Unspecified osteoarthritis, unspecified site; Y90.8 Blood alcohol level of 240 mg/100 ml or more; I16.0 Hypertensive urgency; K74.60 Unspecified cirrhosis of liver; D69.6 Thrombocytopenia, unspecified; F15.10 Other stimulant abuse, uncomplicated; K80.20 Calculus of gallbladder without cholecystitis without obstruction; J98.01 Acute bronchospasm; E87.6 Hypokalemia; K36 Other appendicitis; E83.42 Hypomagnesemia; Z79.899 Other long term (current) drug therapy
CPT/HCPCS: 36415; 70450; 71045; 71260; 74177; 76705; 78227; 80048; 80053; 80307; 80320; 81001; 82010; 82140; 82150; 82248; 82550; 82803; 83735; 83880; 84100; 84145; 84443; 84484; 85025; 85610; 85652; 85730; 86140; 86850; 86900; 86901; 87081; 87400; 87811; 93005; 93306; 96361; 96365; 96366; 96375; 96376; 99285; A4216; A4649; A9537; J1650; J1885; J2405; J2470; J2560; J3360; J3411; J3475; J3480; J3490; J7030; J7120; Q9967; A9270; G0480; J1920

== ENCOUNTER 2025-03-14 11:07 | Emergency (ER) | payer MEDICAID, SELFPAY ==
[2025-03-14 11:08] VITALS: PULSE 77; BMI 30.3
[2025-03-14 11:15] VITALS: BP 169/94; PULSE 78; RESP 20; TEMP 36.7; O2SAT 96; BMI 29.5
--- NOTE | 2025-03-14 11:27 | XR_ITS ---
Examination: PA chest single view TECHNIQUE: Upright PA chest single view Date and time: March 14, 2025, 1130 hours, comparison 03/01/2025 INDICATIONS: Chest pain shortness of breath beginning 2 days ago. FINDINGS: Normal heart size. Lungs are clear. The osseous structures are intact IMPRESSION: No active disease
--- NOTE | 2025-03-14 11:29 | PD.EDABDPN ---
ED Abdominal Pain RME/HPI General Chief Complaint: Abdominal Pain Stated complaint: ABD PAIN Time seen by provider: 03/14/25 11:19 Arrival date/time: 03/14/25 11:07 RME / HPI RME / HPI narrative: 50-year-old male patient with significant history of hypertension, chronic alcoholism, came in for evaluation regarding abdominal pain. Patient has been having abdominal pain for several weeks, getting worse for the last few days. Patient was seen here 2 weeks ago, and was diagnosed with chronic appendicitis. Was also noted to have cholelithiasis. Patient is denying any fever denies any vomiting denies any diarrhea or constipation. Patient admits of drinking alcohol earlier today. Patient is demanding to be admitted for chronic appendicitis. For surgery Related Data Home Medications ?Medication ?Instructions ?Recorded ?Confirmed albuterol sulfate 90 mcg/actuation 1 inh inhalation BID PRN 12/26/24 03/02/25 aerosol inhaler bronchospasm baclofen 10 mg tablet 10 mg PO Q8H PRN muscle spasm 12/26/24 03/02/25 Previous Rx's ?Medication ?Instructions ?Recorded multivitamin 1 tab PO QDAY #30 tabs 11/17/24 thiamine HCl (vitamin B1) 100 mg 100 mg PO QDAY #30 caps 11/17/24 capsule amlodipine 5 mg tablet 5 mg PO QDAY hypertension #30 tabs 12/17/24 tamsulosin 0.4 mg capsule 0.4 mg PO QDAY #30 caps 12/29/24 pantoprazole 40 mg tablet,delayed 40 mg PO QDAY #30 tabs 02/01/25 release (Protonix) Allergies Allergy/AdvReac Type Severity Reaction Status Date / Time No Known Allergies Allergy Verified 03/14/25 11:11 Review of Systems Review of Systems Narrative Review of Systems: Review of system reviewed and within normal limits except mentioned in HPI ED Exam Narrative Physical exam: VITAL SIGNS: Reviewed. GENERAL APPEARANCE: Alert and interactive, follows commands, no acute distress, HEAD AND FACE: Non-traumatic. ENT: PERRL, pink conjunctivitis, eyelid no trauma, Mucous membrane moist. NECK: Supple, nontender, no nuchal rigidity. CHEST: No tenderness, no crepitus, no paradoxical movement, no retractions. LUNGS: Clear, well ventilated, symmetric, no rales, no wheezing, no ronchi, no stridor, good breath sounds bilaterally. HEART: Regular rate, regular rhythm, no murmur, no gallops. ABDOMEN: Soft, positive bowel sounds, nondistended, no guarding, diffuse mild tenderness all quadrants,, no rebound, no masses, RECTAL: Deferred. GENITAL: Deferred. NEUROLOGICAL: Gross motor function intact sensory function intact, Appropriate for age. MUSCULOSKELETAL: low back nontender, full range of motion. EXTREMITIES: Nontender, full range of motion. SKIN: Color pink, dry, no rash, no lacerations, no abrasions, no contusions. LYMPHATICS: Deferred. Course Quality Measures none Orders Category Date Time Status CT Screening NOW Care 03/14/25 11:33 Completed EKG (ED ONLY) *Do not use* NOW Care 03/14/25 11:27 Completed EKG (ED Only) Stat Exams 03/14/25 11:27 Ordered XR chest 1V Stat Exams 03/14/25 11:27 Completed Alcohol, Blood Medical Stat Lab 03/14/25 11:40 Completed Blood Culture (Lab) Stat Lab 03/14/25 11:43 Received CBC Stat Lab 03/14/25 11:40 Completed CRP [C-Reactive Protein] Stat Lab 03/14/25 11:40 Completed Comprehensive Metabolic Panel Stat Lab 03/14/25 11:40 Completed Lactate (Lactic Acid) Stat Lab 03/14/25 11:40 Completed Magnesium Stat Lab 03/14/25 11:40 Completed Partial Thromboplastin Time Stat Lab 03/14/25 11:40 Completed Procalcitonin Stat Lab 03/14/25 11:40 Completed Troponin I Stat Lab 03/14/25 11:40 Completed Vital Signs Vital signs: Vital Signs Temperature 98.1 F 03/14/25 11:15 Pulse Rate 78 03/14/25 11:15 Respiratory Rate 20 03/14/25 11:15 Blood Pressure 169/94 H 03/14/25 11:15 Pulse Oximetry (%) 96 03/14/25 11:15 Oxygen Delivery Method Room Air 03/14/25 11:15 Abdominal Pain MDM MDM Narrative MDM Narrative:: 50-year-old male patient with significant history of hypertension, chronic alcoholism, came in for evaluation regarding abdominal pain. Patient has been having abdominal pain for several weeks, getting worse for the last few days. Patient was seen here 2 weeks ago, and was diagnosed with chronic appendicitis. Was also noted to have cholelithiasis. Patient is denying any fever denies any vomiting denies any diarrhea or constipation. Patient admits of drinking alcohol earlier today. Patient is demanding to be admitted for chronic appendicitis. For surgery Patient eloped from emergency room Patient data External records reviewed:: None Clinical information provided by:: patient Social determinants that could affect healthcare access:: alcohol use Patient has the following chronic illnesses:: Hypertension How is presenting disease/condition affected by chronic disease/condition?: uneffected by Evaluation data The following diagnostics were reviewed and interpreted by me:: lab results and radiology exam(s) Lab and/or radiology exams considered but not ordered:: None Interpretation Summary: CBC showed no leukocytosis. Potassium 3.1 chloride 109 sodium 146 LFTs elevated alcohol of 244. Chest x-ray came back unremarkable. Medications / Prescriptions Medications or Prescriptions considered but not ordered:: None Medication administrations:: None Consultations Consultation(s) initiated? (list below): No Diagnosis Differential diagnosis abdominal pain: abdominal pain, acute appendicitis and constipation Most likely diagnosis given after review of the tests above:: Abdominal pain Admission Indicated Admission indicated?: not indicated (Elopement) Admission Request Was there a request for admission?: No Disposition Plan Disposition Plan: other (specify) (Elopement) Discharge Plan Plan Patient Disposition: Elopement Prescriptions/Referrals Prescriptions/Med Rec: No Action amlodipine 5 mg tablet 5 mg PO QDAY MDD 1 Qty: 30 0RF thiamine HCl (vitamin B1) 100 mg capsule 100 mg PO QDAY Qty: 30 0RF multivitamin Tablet 1 tab PO QDAY Qty: 30 0RF baclofen 10 mg tablet 10 mg PO Q8H PRN (Reason: muscle spasm) albuterol sulfate 90 mcg/actuation HFA aerosol inhaler 1 inh INHALATION BID PRN (Reason: bronchospasm) Patient Comments: INHALE 2 PUFF INHALED EVERY 6 HOURS NEEDED FOR COUGH tamsulosin 0.4 mg Capsule 0.4 mg PO QDAY Qty: 30 0RF pantoprazole [Protonix] 40 mg tablet,delayed release (DR/EC) 40 mg PO QDAY Qty: 30 0RF Referrals: Jacinto Diaz MD [Primary Care Provider, Family Practice] - In 1 week Problem List Clinical Impression: Abdominal pain, Alcohol abuse Patient/Caregiver Discharge Instructions Print Language: Argentine
[2025-03-14 12:16] LABS: Lactate (Lactic Acid) 1.7 mMol/L (0.4-2.0)
[2025-03-14 12:20] LABS: Basophils # (Auto) 0.1 Thou/mm3 (0.0-0.2); Basophils % (Auto) 1 % (0-2.5); Eosinophils # (Auto) 0.2 Thou/mm3 (0.0-0.5); Eosinophils % (Auto) 3 % (0-10); Hematocrit 37.9 % (41.0-53.0); Hemoglobin 12.1 g/dL (13.5-16.0); Immature Granulocytes Auto 0.04 Thou/mm3 (0.00-0.00); Lymphocytes # (Auto) 1.2 Thou/mm3 (1.0-4.8); Lymphocytes % (Auto) 14 % (10-50); Mean Corpuscular HGB Conc 31.9 g/dl (31.0-37.0); Mean Corpuscular Hemoglobin 28.7 pg (25.0-35.0); Mean Corpuscular Volume 90 fL (80-100); Monocytes # (Auto) 0.5 Thou/mm3 (0.0-0.8); Monocytes % (Auto) 6 % (0-12); Neutrophils # (Auto) 6.7 Thou/mm3 (1.8-7.7); Neutrophils % (Auto) 77 % (37-80); Nucleated Red Blood Cell # 0.00 Thou/mm3 (0.00-0.00); Nucleated Red Blood Cell % 0 /100 WBC (0); Platelet Count 223 Thou/mm3 (140-440); RDW Standard Deviation 47.8 fL (35.1-43.9); Red Blood Count 4.22 Miln/mm3 (4.50-5.90); White Blood Count 8.7 Thou/mm3 (3.8-10.6)
--- NOTE | 2025-03-14 12:26 | PC.NURSE ---
Patient seen leaving ED and walking down street past city bus stop a block down from ED. PAtient eloped.
[2025-03-14 12:37] LABS: Partial Thromboplastin Time 29.9 Seconds (22.0-36.0)
[2025-03-14 12:47] LABS: Alanine Aminotransferase 103 U/L (10-49); Albumin, Serum 4.6 gm/dL (3.5-5.0); Albumin/Globulin Ratio 1.6 (1.2-2.2); Alcohol, Blood Medical 244.4 mg/dL (0-10.0); Alkaline Phosphatase 376 U/L (46-116); Anion Gap 13 (7-16); Aspartate Amino Transferase 167 U/L (0-34); BUN/Creatinine Ratio 10 Ratio (12-20); Bilirubin,Total 0.5 mg/dL (0.3-1.2); Blood Urea Nitrogen 9 mg/dL (9-23); C-Reactive Protein < 0.5 mg/dL (0.0-0.9); Calcium 9.2 mg/dL (8.3-10.6); Calcium (Corrected) 9.2 mg/dL (8.5-10.1); Carbon Dioxide 23.8 mMol/L (20.0-31.0); Chloride 109 mMol/L (98-107); Creatinine (Component) 0.9 mg/dL (0.6-1.3); Estimated Creatinine Clearance 116.9 mL/min (>60); Globulin 2.8 gm/dL (2.3-3.5); Glucose 105 mg/dL (74-106); Magnesium 1.9 mg/dL (1.6-2.6); Osmolality,Calculated 289 (275-295); Potassium 3.1 mMol/L (3.4-5.1); Procalcitonin 0.14 ng/ml (0.0-0.49); Sodium 146 mMol/L (136-145); Total Protein 7.4 gm/dL (5.7-8.2); Troponin I < 0.020 ng/mL (0.0-0.045); eGFR > 60 See Note
== END 2025-03-14 12:27 | disposition left against medical advice (07) ==
PROVIDERS: Nurse Practitioner Family; Emergency Provider Family Medicine; PCP Family Medicine
DX: K36 Other appendicitis (principal); K80.20 Calculus of gallbladder without cholecystitis without obstruction; F10.20 Alcohol dependence, uncomplicated; Y90.8 Blood alcohol level of 240 mg/100 ml or more; I10 Essential (primary) hypertension; Z53.21 Procedure and treatment not carried out due to patient leaving prior to being seen by health care provider
CPT/HCPCS: 36415; 71045; 80053; 80320; 81001; 83605; 83735; 84145; 84484; 85025; 85730; 86140; 87040; 99284; G0480

== ENCOUNTER 2025-03-15 16:55 | Emergency (ER) | payer MEDICAID, SELFPAY ==
[2025-03-15 16:56] VITALS: PULSE 90; RESP 18; O2SAT 95; BMI 30.3
[2025-03-15 18:07] VITALS: BP 161/90; PULSE 87; RESP 18; TEMP 36.7; O2SAT 95; BMI 28.1
--- NOTE | 2025-03-15 18:15 | EKG_ITS ---
[facility] Test Date: 2025-03-15 Pat Name: CECY PINEDA Department: Room: - Gender: Male Order Caller: : [id number] Requested By: Jesus Fraga Order Number: [id number] Reading MD: Jesus Fraga Measurements Intervals [place] Rate: 81 P: 46 [place]: 158 QRS: 10 QRSD: 104 T: 41 QT: 397 QTc: 462 Interpretive Statements SINUS RHYTHM INFERIOR MYOCARDIAL INFARCTION , PROBABLY OLD [40+ ms Q WAVE AND/OR ST/T ABNORMALITY IN II/aVF] Compared to ECG 03/02/2025 10:15:10 Myocardial infarct finding now present /store/S0/[id number].pdf
--- NOTE | 2025-03-15 18:18 | PD.EDABDPN ---
ED Abdominal Pain RME/HPI General Chief Complaint: Abdominal Pain Stated complaint: GENERALIZED ABD PAIN; +ETOH; HX APPENDICITIS Time seen by provider: 03/15/25 17:51 Arrival date/time: 03/15/25 16:55 RME / HPI RME / HPI narrative: 50-year-old male patient came in for evaluation regarding right upper quadrant pain. Onset of symptoms for several weeks, and has on and off right upper quadrant pain, described as dull ache, severity mild. Patient is worried because she was told several months ago that he had chronic appendicitis. Patient continued to drink alcohol every day. Patient homeless. Related Data Home Medications ?Medication ?Instructions ?Recorded ?Confirmed albuterol sulfate 90 mcg/actuation 1 inh inhalation BID PRN 12/26/24 03/02/25 aerosol inhaler bronchospasm baclofen 10 mg tablet 10 mg PO Q8H PRN muscle spasm 12/26/24 03/02/25 Previous Rx's ?Medication ?Instructions ?Recorded multivitamin 1 tab PO QDAY #30 tabs 11/17/24 thiamine HCl (vitamin B1) 100 mg 100 mg PO QDAY #30 caps 11/17/24 capsule amlodipine 5 mg tablet 5 mg PO QDAY hypertension #30 tabs 12/17/24 tamsulosin 0.4 mg capsule 0.4 mg PO QDAY #30 caps 12/29/24 pantoprazole 40 mg tablet,delayed 40 mg PO QDAY #30 tabs 02/01/25 release (Protonix) Allergies Allergy/AdvReac Type Severity Reaction Status Date / Time No Known Allergies Allergy Verified 03/15/25 17:00 Review of Systems Review of Systems Narrative Review of Systems: Review of system reviewed and within normal limits except mentioned in HPI ED Exam Narrative Physical exam: VITAL SIGNS: Reviewed. GENERAL APPEARANCE: Alert and interactive, follows commands, no acute distress, HEAD AND FACE: Non-traumatic. ENT: PERRL, pink conjunctivitis, eyelid no trauma, Mucous membrane moist. NECK: Supple, nontender, no nuchal rigidity. CHEST: No tenderness, no crepitus, no paradoxical movement, no retractions. LUNGS: Clear, well ventilated, symmetric, no rales, no wheezing, no ronchi, no stridor, good breath sounds bilaterally. HEART: Regular rate, regular rhythm, no murmur, no gallops. ABDOMEN: Soft, positive bowel sounds, nondistended, no guarding, right upper quadrant tenderness, no rebound, no masses, RECTAL: Deferred. GENITAL: Deferred. NEUROLOGICAL: Gross motor function intact sensory function intact, Appropriate for age. MUSCULOSKELETAL: low back nontender, full range of motion. EXTREMITIES: Nontender, full range of motion. SKIN: Color pink, dry, no rash, no lacerations, no abrasions, no contusions. LYMPHATICS: Deferred. Course Quality Measures none Orders Category Date Time Status EKG (ED ONLY) *Do not use* NOW Care 03/15/25 18:15 Completed EKG (ED Only) Stat Exams 03/15/25 18:15 Draft US gall bladder Stat Exams 03/15/25 18:15 Ordered Alcohol, Blood Medical Stat Lab 03/15/25 18:53 Completed CBC Stat Lab 03/15/25 18:53 Completed Comprehensive Metabolic Panel Stat Lab 03/15/25 18:53 Completed Lipase Stat Lab 03/15/25 18:53 Completed Magnesium Stat Lab 03/15/25 18:53 Completed Prothrombin Time with INR Stat Lab 03/15/25 18:53 Completed Vital Signs Vital signs: Vital Signs Temperature 98.1 F 03/15/25 18:07 Pulse Rate 87 03/15/25 18:07 Respiratory Rate 18 03/15/25 18:07 Blood Pressure 161/90 H 03/15/25 18:07 Pulse Oximetry (%) 95 03/15/25 18:07 Oxygen Delivery Method Room Air 03/15/25 18:07 Abdominal Pain MDM MDM Narrative MDM Narrative:: 50-year-old male patient came in for evaluation regarding right upper quadrant pain. Onset of symptoms for several weeks, and has on and off right upper quadrant pain, described as dull ache, severity mild. Patient is worried because she was told several months ago that he had chronic appendicitis. Patient continued to drink alcohol every day. Patient homeless. Plan of care discussed with the patient and told me that this time he is not going to elope however patient still eloped. Patient data External records reviewed:: [facility] previous records and None Clinical information provided by:: patient Social determinants that could affect healthcare access:: alcohol use Patient has the following chronic illnesses:: Chronic alcoholism How is presenting disease/condition affected by chronic disease/condition?: exacerbated by Evaluation data The following diagnostics were reviewed and interpreted by me:: lab results and radiology exam(s) Lab and/or radiology exams considered but not ordered:: None Interpretation Summary: Patient eloped Medications / Prescriptions Medications or Prescriptions considered but not ordered:: None Medication administrations:: None Consultations Consultation(s) initiated? (list below): No Diagnosis Differential diagnosis abdominal pain: abdominal pain, pancreatitis and small bowel obstruction Most likely diagnosis given after review of the tests above:: Abdominal pain Admission Indicated Admission indicated?: not indicated Admission Request Was there a request for admission?: No Disposition Plan Disposition Plan: other (specify) Discharge Attestation Discharge Attestation: Elopement Discharge Plan Plan Patient Disposition: Elopement Prescriptions/Referrals Prescriptions/Med Rec: No Action amlodipine 5 mg tablet 5 mg PO QDAY MDD 1 Qty: 30 0RF thiamine HCl (vitamin B1) 100 mg capsule 100 mg PO QDAY Qty: 30 0RF multivitamin Tablet 1 tab PO QDAY Qty: 30 0RF baclofen 10 mg tablet 10 mg PO Q8H PRN (Reason: muscle spasm) albuterol sulfate 90 mcg/actuation HFA aerosol inhaler 1 inh INHALATION BID PRN (Reason: bronchospasm) Patient Comments: INHALE 2 PUFF INHALED EVERY 6 HOURS NEEDED FOR COUGH tamsulosin 0.4 mg Capsule 0.4 mg PO QDAY Qty: 30 0RF pantoprazole [Protonix] 40 mg tablet,delayed release (DR/EC) 40 mg PO QDAY Qty: 30 0RF Referrals: No Primary/Family,Physician [Primary Care Provider] - In 1 week Problem List Clinical Impression: Abdominal pain Patient/Caregiver Discharge Instructions Print Language: Andorran
[2025-03-15 19:25] LABS: Basophils # (Auto) 0.1 Thou/mm3 (0.0-0.2); Basophils % (Auto) 1 % (0-2.5); Eosinophils # (Auto) 0.2 Thou/mm3 (0.0-0.5); Eosinophils % (Auto) 2 % (0-10); Hematocrit 38.1 % (41.0-53.0); Hemoglobin 12.2 g/dL (13.5-16.0); Immature Granulocytes Auto 0.03 Thou/mm3 (0.00-0.00); Lymphocytes # (Auto) 1.4 Thou/mm3 (1.0-4.8); Lymphocytes % (Auto) 15 % (10-50); Mean Corpuscular HGB Conc 32.0 g/dl (31.0-37.0); Mean Corpuscular Hemoglobin 29.3 pg (25.0-35.0); Mean Corpuscular Volume 91 fL (80-100); Monocytes # (Auto) 0.5 Thou/mm3 (0.0-0.8); Monocytes % (Auto) 5 % (0-12); Neutrophils # (Auto) 7.2 Thou/mm3 (1.8-7.7); Neutrophils % (Auto) 78 % (37-80); Nucleated Red Blood Cell # 0.00 Thou/mm3 (0.00-0.00); Nucleated Red Blood Cell % 0 /100 WBC (0); Platelet Count 219 Thou/mm3 (140-440); RDW Standard Deviation 49.1 fL (35.1-43.9); Red Blood Count 4.17 Miln/mm3 (4.50-5.90); White Blood Count 9.4 Thou/mm3 (3.8-10.6)
[2025-03-15 19:44] LABS: Alanine Aminotransferase 84 U/L (10-49); Albumin, Serum 4.8 gm/dL (3.5-5.0); Albumin/Globulin Ratio 1.5 (1.2-2.2); Alcohol, Blood Medical 248.8 mg/dL (0-10.0); Alkaline Phosphatase 357 U/L (46-116); Anion Gap 14 (7-16); Aspartate Amino Transferase 128 U/L (0-34); BUN/Creatinine Ratio 14 Ratio (12-20); Bilirubin,Total 0.6 mg/dL (0.3-1.2); Blood Urea Nitrogen 13 mg/dL (9-23); Calcium 9.7 mg/dL (8.3-10.6); Calcium (Corrected) 9.7 mg/dL (8.5-10.1); Carbon Dioxide 23.1 mMol/L (20.0-31.0); Chloride 110 mMol/L (98-107); Creatinine (Component) 0.9 mg/dL (0.6-1.3); Estimated Creatinine Clearance 117.7 mL/min (>60); Globulin 3.1 gm/dL (2.3-3.5); Glucose 81 mg/dL (74-106); Lipase 50 U/L (12-53); Magnesium 1.9 mg/dL (1.6-2.6); Osmolality,Calculated 291 (275-295); Potassium 2.8 mMol/L (3.4-5.1); Sodium 147 mMol/L (136-145); Total Protein 7.9 gm/dL (5.7-8.2); eGFR > 60 See Note
[2025-03-15 19:49] LABS: INR 1.1 (0.9-1.3); Prothrombin Time 11.2 Seconds (9.0-12.2)
--- NOTE | 2025-03-15 20:07 | PC.NURSE ---
INFORMED SECURITY THAT HE IS LEAVING.
== END 2025-03-15 20:07 | disposition left against medical advice (07) ==
LOC: SERX 19:04
PROVIDERS: Nurse Practitioner Family; Emergency Provider Emergency Medicine
DX: R10.11 Right upper quadrant pain (principal); F10.20 Alcohol dependence, uncomplicated; Y90.8 Blood alcohol level of 240 mg/100 ml or more; Z53.29 Procedure and treatment not carried out because of patient's decision for other reasons; Z59.00 Homelessness unspecified
CPT/HCPCS: 36415; 80053; 80307; 80320; 83690; 83735; 85025; 85610; 93005; 99283; G0480

== ENCOUNTER 2025-04-07 18:45 | Emergency (ER) | payer MEDICAID, SELFPAY ==
[2025-04-07 18:46] VITALS: BMI 30.9
[2025-04-07 19:40] VITALS: BP 156/98; PULSE 104; RESP 20; TEMP 36.7; O2SAT 95
--- NOTE | 2025-04-07 20:05 | EDNOTE_ITS ---
Upper Respiratory Inf. RME/HPI General Chief Complaint: Flu Like Symptoms Stated Complaint: COUGH x3 DAYS, RIB PAIN S/P FALL YESTERDAY Time Seen by Provider: 04/07/25 18:48 Arrival date/time: 04/07/25 18:45 50-year-old male reports with complaints of 3 days of cough congestion and shortness of breath. Patient states that he had falling down yesterday and now has right sided rib pain he has not noticed any bruising or swelling. He denies fever chills chest pain nausea or vomiting weakness or fatigue. He reports taken garq-soe-ogedyan medications with no improvement of flulike symptoms. He denies taking any medication for rib pain Limitations: no limitations Related Data Home Medications ?Medication ?Instructions ?Recorded ?Confirmed albuterol sulfate 90 mcg/actuation 1 inh inhalation BI D PRN 12/26/24 03/02/25 aerosol inhaler bronchospasm baclofen 10 mg tablet 10 mg PO Q8H PRN muscle spas m 12/26/24 03/02/25 Previous Rx's ?Medication ?Instructions ?Recorded multivitamin 1 tab PO QDAY #30 tabs 11/17 thiamine HCl (vitamin B1) 100 mg 100 mg PO QDAY #30 ca ps 11/17/24 capsule amlodipine 5 mg tablet 5 mg PO QDAY hypertension #3 0 tabs 12/17/24 tamsulosin 0.4 mg capsule 0.4 mg PO QDAY #30 caps 12/11 pantoprazole 40 mg tablet,delayed 40 mg PO QDAY #30 ta bs 02/01/25 release (Protonix) ibuprofen 800 mg tablet 800 mg PO TID PRN pain #30 t abs 04/07/25 Allergies Allergy/AdvReac Type Severity Reaction Status Date / Time No Known Allergies Allergy Verified 04/07/25 18:48 Review of Systems Constitutional Constitutional: Denies chills, Denies fever(s) and Denies headache(s) ENT Ears, Nose, Mouth, and Throat: Denies headache(s), Reports nasal congestion, Reports nasal discharge, Denies sore throat and Denies vertigo Cardiovascular Cardiovascular: Denies chest pain, Denies diaphoresis and Reports dyspnea Respiratory Respiratory: Reports cough and Reports dyspnea Gastrointestinal Gastrointestinal: Denies abdominal pain, Denies nausea and Denies vomiting Musculoskeletal Musculoskeletal: Denies arthralgias and Denies back pain Integumentary/Breasts Skin/Breast: Denies unusual bruising and Denies wounds Neurologic Neurologic: Denies headache(s) and Denies vertigo Past Medical History Past Medical History NEUROLOGIC: Positive Traumatic Brain Injury; Negative Neurological Disorders CARDIAC: Positive Hypertension; Negative Cardiac Disorders or Congestive Heart Failure RESPIRATORY: Negative Chronic Obstructive Pulmonary Disease (COPD) or Asthma GASTROINTESTINAL: Positive Gall Bladder Disease and Hemorrhoids; Negative Gastrointestinal Disorders GENITOURINARY: Negative Genitourinary Disorders or Renal Disease MUSCULOSKELETAL: Positive Arthritis and Rheumatoid Arthritis; Negative Musculoskeletal Disorders ENDOCRINE: Negative Endocrine Disorders, Diabetes Mellitus Type 1 or Diabetes Mellitus Type 2 HEMATOLOGIC: Negative Blood Disorders or Sickle Cell Disease OTHER HISTORY: Negative Hospitalization, Autoimmune Disease, Down Syndrome, Developmental Delay, Shingles, Falls, Blood Transfusions, Anesthesia Reactions, Clostridium Difficile or Cancer Family History FAMILY HISTORY: Positive Family Cardiac Disorders and Family Cancer Social History SMOKING STATUS: Never smoker SECOND HAND EXPOSURE: Yes (sister including marijuana) SUBSTANCE USE: does not use ED Exam General Limitations: Present no limitations General appearance: Present alert and in no apparent distress Head Head exam: Present atraumatic Eye Eye exam: Present normal appearance, PERRL and EOMI ENT ENT exam: Present normal exam, normal oropharynx and mucous membranes moist Neck Neck exam: Present normal inspection, full ROM and trachea midline Chest Chest inspection: Present normal inspection, symmetric chest wall rise and tenderness (right 5th through 8th rib) Respiratory Respiratory exam: Present normal lung sounds bilaterally Cardiovascular Cardiovascular exam: Present regular rate, normal rhythm and normal heart sounds Abdominal Exam Abdominal exam: Present soft and normal bowel sounds Extremities Exam Extremities exam: Present normal inspection and full ROM Back Exam Back exam: Present normal inspection and full ROM Neurological Exam Neurological exam: Present alert, oriented X3 and CN II-XII intact Psychiatric Psychiatric exam: Present normal affect and normal mood Skin Skin exam: Present warm, dry, intact and normal color Course Course Course Narrative: [facility] [address] [place] [address] [place] [facility] Report Signed Patient: CECY PINEDA. Record#: [id number] Birthdate: 1975 Age/Sex: 50 / M Location: [facility] Attending Dr: Ordering Physician: Malick Kaur PA-C Date of Service: 04/07/25 Procedure(s): XR ribs BI min 4V w CXR1V Accession Number(s): [id number] cc: Jacinto Diaz MD; Apolinar Ye MD; Malick Kaur PA-C~ Examination: Ribs, bilateral, with PA chest, 5 views Technique: Chest PA, RIBS AP, RPO, LPO, AP coned lower ribs 5 views Exam date and time: April 07, 2025, 2034 hours INDICATIONS: Patient fell yesterday with injury to the chest with bilateral rib pain Findings: Normal heart size No pneumothorax Clavicles appear intact fracture right seventh rib anteriorly without significant displacement IMPRESSION: No pneumothorax pulmonary contusion or hemothorax Fracture right seventh rib anteriorly without significant displacement, which may be acute, clinical correlation advised Dictated By: Apolinar Ye MD Signed By: <Electronically signed by Apolinar Ye MD in OV> 04/07/252053 DD/ 51 TD/TT: 04/07/252051 Radiotelegraph Operator: MORAIMA Quality Measures none Orders Category Date Time Status Bedside COVID-19 Antigen Test NOW Care 04/07/25 20:05 Active Bedside Influenza A&B Antigen Test NOW Care 04/07/25 20:05 Completed XR ribs BI min 4V w CXR1V Stat Exams 04/07/25 20:05 Completed Vital Signs Vital signs: Vital Signs Temperature 98.1 F 04/07/25 19:40 Pulse Rate 104 H 04/07/25 19:40 Respiratory Rate 20 04/07/25 19:40 Blood Pressure 156/98 H 04/07/25 19:40 Pulse Oximetry (%) 95 04/07/25 19:40 Oxygen Delivery Method Room Air 04/07/25 19:40 Upper Respiratory Infection Patient data External records reviewed:: None Clinical information provided by:: patient Social determinants that could affect healthcare access:: none Patient has the following chronic illnesses:: Alcohol abuse How is presenting disease/condition affected by chronic disease/condition?: uneffected by Evaluation data The following diagnostics were reviewed and interpreted by me:: lab results and radiology exam(s) Lab and/or radiology exams considered but not ordered:: none Interpretation Summary: Rib fracture Medications / Prescriptions Medications or Prescriptions considered but not ordered:: None Medication administrations:: None Consultations Consultation(s) initiated? (list below): No Diagnosis Upper Respiratory Differential Diagnosis: upper respiratory infection, sinusitis and viral infection Most likely diagnosis given after review of the tests above:: Rib fracture and viral upper respiratory infection Admission Indicated Admission indicated?: not indicated Admission Request Was there a request for admission?: No Disposition Plan Disposition Plan: Discharge Discharge Attestation Discharge Attestation: The patient and all family members were given an opportunity to ask questions and understood the discharge instructions. Discharge instructions specifically effects, indications for sooner follow up or return to the emergency department, and the expected course of current diagnosis. Patient condition: Stable Discharge Plan Plan Patient Disposition: HOME (Self Care) Prescriptions/Referrals Prescriptions/Med Rec: New ibuprofen 800 mg tablet 800 mg PO TID PRN (Reason: pain) Qty: 30 0RF No Action amlodipine 5 mg tablet 5 mg PO QDAY MDD 1 Qty: 30 0RF thiamine HCl (vitamin B1) 100 mg capsule 100 mg PO QDAY Qty: 30 0RF multivitamin Tablet 1 tab PO QDAY Qty: 30 0RF baclofen 10 mg tablet 10 mg PO Q8H PRN (Reason: muscle spasm) albuterol sulfate 90 mcg/actuation HFA aerosol inhaler 1 inh INHALATION BID PRN (Reason: bronchospasm) Patient Comments: INHALE 2 PUFF INHALED EVERY 6 HOURS NEEDED FOR COUGH tamsulosin 0.4 mg Capsule 0.4 mg PO QDAY Qty: 30 0RF pantoprazole [Protonix] 40 mg tablet,delayed release (DR/EC) 40 mg PO QDAY Qty: 30 0RF Referrals: Jacnito Diaz MD [Primary Care Provider, [facility]] - In 1 week Problem List Clinical Impression: URI (upper respiratory infection), Closed rib fracture Patient/Caregiver Discharge Instructions Discharge Activity: activity as tolerated Education Materials: ED Rib Fracture, ED URI, Viral, No Abx (Adult), ED Rib Contusion or Minor Fracture Additional Instructions: Your lab tests are negative symptoms most likely caused by a virus hydrate well take bmpj-jnr-mchujiv medications for symptoms as needed and follow up with your primary care provider if symptoms does not improve in 3-5 days. You have a rib fracture, take medications as directed limit activities such as lifting pushing pulling and follow-up with your primary care provider in 48 hours Print Language: Ecuadorean Stand Alone Forms: Mayuri Award Info., Patient Portal Info Letter
== END 2025-04-07 22:46 | disposition home or self-care (01) ==
PROVIDERS: Emergency Provider Physician Assistant; PCP Family Medicine
DX: S22.31XA Fracture of one rib, right side, initial encounter for closed fracture (principal); B97.89 Other viral agents as the cause of diseases classified elsewhere; J06.9 Acute upper respiratory infection, unspecified; W19.XXXA Unspecified fall, initial encounter
CPT/HCPCS: 71111; 87400; 87811; 99282

== ENCOUNTER 2025-04-15 21:22 | Observation (INO) | payer MEDICAID, SELFPAY ==
[2025-04-15 21:25] VITALS: BP 170/99; BP 180/104; PULSE 93; RESP 18; TEMP 36.7; O2SAT 95
[2025-04-15 21:27] VITALS: BMI 30.9
[2025-04-15 21:32] VITALS: PULSE 98; O2SAT 100; BMI 30.3
--- NOTE | 2025-04-15 21:39 | EDNOTE_ITS ---
ED Abdominal Pain RME/HPI General Chief Complaint: Abdominal Pain Stated complaint: RIGHT RIB PAIN Time seen by provider: 04/15/25 21:39 Arrival date/time: 04/15/25 21:22 RME / HPI RME / HPI narrative: Dr. Magana?s Main ED Evaluation: 50yo male with a history of HTN, methamphetamine abuse, alcohol abuse BIBA presents to the ED for a chief complaint of right-sided abdominal pain. Patient was seen at [facility] 4 days ago for the same complaint. Patient reports associated N/V. Patient endorses having appendicitis in the past, but declined surgical intervention. Patient now states I've been having too many problems with it and want it out . Denies any other associated symptoms. Last alcohol intake was yesterday. No previous abdominal surgeries. NKA. Related Data Home Medications ?Medication ?Instructions ?Recorded ?Confirmed albuterol sulfate 90 mcg/actuation 1 inh inhalation BI D PRN 12/26/24 03/02/25 aerosol inhaler bronchospasm baclofen 10 mg tablet 10 mg PO Q8H PRN muscle spas m 12/26/24 03/02/25 Previous Rx's ?Medication ?Instructions ?Recorded multivitamin 1 tab PO QDAY #30 tabs 11/17 thiamine HCl (vitamin B1) 100 mg 100 mg PO QDAY #30 ca ps 11/17/24 capsule amlodipine 5 mg tablet 5 mg PO QDAY hypertension #3 0 tabs 12/17/24 tamsulosin 0.4 mg capsule 0.4 mg PO QDAY #30 caps 12/11 pantoprazole 40 mg tablet,delayed 40 mg PO QDAY #30 ta bs 02/01/25 release (Protonix) ibuprofen 800 mg tablet 800 mg PO TID PRN pain #30 t abs 04/07/25 Allergies Allergy/AdvReac Type Severity Reaction Status Date / Time No Known Allergies Allergy Verified 04/07/25 18:48 Review of Systems Review of Systems Systems Reviewed: All systems reviewed, normal except as documented Past Medical History Past Medical History NEUROLOGIC: Positive Traumatic Brain Injury; Negative Neurological Disorders CARDIAC: Positive Hypertension; Negative Cardiac Disorders or Congestive Heart Failure RESPIRATORY: Negative Chronic Obstructive Pulmonary Disease (COPD) or Asthma GASTROINTESTINAL: Positive Gall Bladder Disease and Hemorrhoids; Negative Gastrointestinal Disorders GENITOURINARY: Negative Genitourinary Disorders or Renal Disease MUSCULOSKELETAL: Positive Arthritis and Rheumatoid Arthritis; Negative Musculoskeletal Disorders ENDOCRINE: Negative Endocrine Disorders, Diabetes Mellitus Type 1 or Diabetes Mellitus Type 2 HEMATOLOGIC: Negative Blood Disorders or Sickle Cell Disease OTHER HISTORY: Negative Hospitalization, Autoimmune Disease, Down Syndrome, Developmental Delay, Shingles, Falls, Blood Transfusions, Anesthesia Reactions, Clostridium Difficile or Cancer Family History FAMILY HISTORY: Positive Family Cardiac Disorders and Family Cancer Social History SMOKING STATUS: Never smoker SECOND HAND EXPOSURE: Yes (sister including marijuana) SUBSTANCE USE: does not use ED Exam Narrative Physical exam: Generally patient is alert in mild distress secondary to pain heart regular rate and rhythm, lungs clear to auscultation equal bilaterally, abdomen soft bowel sounds present nondistended right lower quadrant McBurney's point tenderness as well as right upper quadrant abdominal tenderness without Gutierrez sign. Skin is warm pale and dry neurologic exam shows no current tremor. Patient is alert and oriented x 4 with [place] Coma Scale of 15 without focal motor deficit Course Quality Measures none Orders Category Date Time Status CT Screening NOW Care 04/15/25 21:[address] abdomen pelvis w con Stat Exams 04/15/25 21:44 Completed US gall bladder Stat Exams 04/15/25 21:45 Completed Alcohol, Blood Medical Stat Lab 04/15/25 21:48 Completed CBC Stat Lab 04/15/25 21:48 Completed CMP [Comprehensive Metabolic Panel] Stat Lab 04/15/25 21:48 Completed Drug Screen,Urine Stat Lab 04/15/25 23:40 Completed Lipase Stat Lab 04/15/25 21:48 Completed UA [Urinalysis] Stat Lab 04/15/25 23:40 Completed Morphine* Inj Med 04/15/25 21:44 Discontinued 4 mg IVP X1 ONE Ringers Lactated 1000 ml [Lactated Ringers] 1,000 ml Med 04/15/25 21:44 Discontinued IV 999 mls/hr cefTRIAXone/D5w 1gm IV premix [Rocephin/D5w 1gm IV Med 04/16/25 00:02 Active premix] 1 gm in 50 ml IV X1 metroNIDAZOLE/NS 500 MG IVPB [Flagyl 500 mg IV] Med 04/16/25 00:02 Active 500 mg in 100 ml IV X1 Vital Signs Vital signs: Vital Signs Temperature 98.1 F 04/15/25 21:25 Pulse Rate 93 04/15/25 21:25 Respiratory Rate 18 04/15/25 21:25 Blood Pressure 180/104 H 04/15/25 21:25 Pulse Oximetry (%) 95 04/15/25 21:25 Oxygen Delivery Method Room Air 04/15/25 21:25 Abdominal Pain MDM MDM Narrative MDM Narrative:: Scribe Attestation: 04/15/25 - Kelly Muñoz am scribing for and in the presence of Dr. Magana. Patient last drink alcohol yesterday. His alcohol level is elevated. There is no leukocytosis. CT scan shows evidence for acute appendicitis with a thickened appendix with Stan inflammatory change. Patient received Rocephin 1 g IV and Flagyl 500 mg IV. I researched the patient in the computer. He has been here multiple times for pain. He had acute appendicitis back in January of this year but he refused surgery so was treated with Augmentin. At this time the patient states that he wants his appendix taken out. He is tired of dealing with this pain. He does consent to surgery. I spoke with general surgeon, Dr. Blood who asked for the patient to be admitted and to be placed NPO. Patient's LFTs are elevated but very comparable to where they have been in the past. Gallbladder ultrasound showed gallstones with a common bile duct of 0.6 cm which is very comparable to where its been in the past. I interpreted all labs. Patient data External records reviewed:: [facility] previous records (Per chart review, patient was seen here on 04/07/25 for closed rib fracture.) and EMS form Clinical information provided by:: patient Social determinants that could affect healthcare access:: substance use Patient has the following chronic illnesses:: HTN, alcohol use disorder, methamphetimine use disorder How is presenting disease/condition affected by chronic disease/condition?: uneffected by Evaluation data The following diagnostics were reviewed and interpreted by me:: lab results and radiology exam(s) Lab and/or radiology exams considered but not ordered:: none Interpretation Summary: [place] [place] [facility] Signed Patient: CECY PINEDA. Record#: [id number] Birthdate: 1975 Age/Sex: 50 / M Location: [facility] Attending Dr: Ordering Physician: Ajith Magana DO Date of Service: 04/15/25 Procedure(s): US gall bladder Accession Number(s): [id number] cc: Jaicnto Diaz MD; Apolinar Ye MD; Ajith Magana DO~ Examination: Abdomen sonogram, Limited Date and time of exam: April 15, 2025, 1008 hours INDICATIONS: Right lower abdominal pain and tenderness beginning 3 days ago Technique: Real-time cortes scale transabdominal sonographic images of the upper abdomen obtained. Findings: Contracted gallbladder with multiple gallstones Gallbladder wall 0.5 cm Pancreatic head 3.2 cm Common bile duct 0.6 cm no stones Liver 17.5 cm fatty infiltration no focal liver lesions Normal hepatopetal portal venous flow Patent IVC IMPRESSION: Cholelithiasis Thickened gallbladder wall, enlarged common bile duct 0.6 cm, consider MRCP follow-up to exclude cholecystitis and exclude stones in the common bile duct Dictated By: Apolinar Ye MD Signed By: <Electronically signed by Apolinar Ye MD in OV> 04/15/25 2252 [place] Report Signed Patient: CECY PINEDA Record#: [id number] Birthdate: 1975 Age/Sex: 50 / M Location: [facility] Attending Dr: Ordering Physician: Ajith Magana DO Date of Service: 04/15/25 Procedure(s): CT abdomen pelvis w ed Accession Number(s): [id number] cc: Jacinto Diaz MD; Apolinar Ye MD; Ajith Magana DO~ Examination: CT abdomen with intravenous contrast CT pelvis with intravenous contrast 2-D coronal reconstructions 2-D sagittal reconstructions Date and time of exam: April 15, 2025, 11:28 p.m, comparison 03/01/2025 INDICATIONS: Abdominal pain beginning 4 days ago. CTDI: vol (mGy) 8.48 DLP: (mGycm) 567 Technique: Multiple axial sections of the abdomen and pelvis have been obtained. 64 slice high-resolution scanner used. 3 mm axial sections have been obtained, post intravenous injection 60 cc [id number] 2-D sagittal, coronal reconstructions obtained. Low dose protocols were performed. One or more of the following dose reduction techniques were used; automated exposure control, adjustment of the mA and/or KV according to patient size, use of iterative reconstruction technique. Findings: No focal liver or splenic lesions Hepatosplenomegaly, liver is irregular in contour Gallstones No pancreatic or adrenal mass Atrophic left kidney with renal moderate scar formation Aorta normal size No bowel obstruction The appendix is thickened with mild inflammatory change medial below the cecum No pericecal abscess Urinary bladder intact No prostatomegaly IMPRESSION: Cirrhosis versus primary hepatocellular disease The appendix is thickened with mild inflammatory change consistent with acute appendicitis, the appearance should be clinically correlated Dictated By: Apolinar Ye MD Signed By: <Electronically signed by Apolinar Ye MD in OV> 04/15/25 2346 Medications / Prescriptions Medications or Prescriptions considered but not ordered:: none Medication administrations:: Medication Administration History Ceftriaxone Sodium/Dextrose (Rocephin/D5w 1gm Iv Premix) 1 gm in 50 mls @ 100 mls/hr IV X1 ONE Stop: 04/16/25 00:31 Last Admin: 04/16/25 00:07 Dose: 100 mls/hr Documented By: ROXANNA Metronidazole (Flagyl 500 Mg Iv) 500 mg in 100 mls @ 100 mls/hr IV X1 ONE Stop: 04/16/25 01:01 Discontinued Medications Lactated Ringer's (Lactated Ringers) 1,000 mls @ 999 mls/hr IV .Q1H1M ONE Stop: 04/15/25 22:44 Last Infusion: 04/15/25 23:00 Dose: Infused Documented By: Admin: 04/15/25 21:51 Dose: 999 mls/hr Documented By: ROXANNA Morphine Sulfate (Morphine Sulf Inj 4 Mg/Ml Vial) 4 mg IVP X1 ONE Stop: 04/15/25 21:45 Last Admin: 04/15/25 21:51 Dose: 4 mg Documented By: ROXANNA see above Consultations Consultation(s) initiated? (list below): Yes Diagnosis Differential diagnosis abdominal pain: other (See MDM) Most likely diagnosis given after review of the tests above:: see clinical impression below Admission Indicated Admission indicated?: indicated Admission Request Was there a request for admission?: Yes Admission Attestation Admission request attestation: Discussed case with [] from Hospitalist service regarding admission. Discussed patients ED course, exam findings, labs, and radiology results. The Hospitalist [agrees,declines] to accept the patient for admission. Disposition Plan Disposition Plan: Admit Discharge Plan Plan Patient Disposition: Admit Acute Care w/in Hospital Prescriptions/Referrals Prescriptions/Med Rec: No Action amlodipine 5 mg tablet 5 mg PO QDAY MDD 1 Qty: 30 0RF thiamine HCl (vitamin B1) 100 mg capsule 100 mg PO QDAY Qty: 30 0RF multivitamin Tablet 1 tab PO QDAY Qty: 30 0RF baclofen 10 mg tablet 10 mg PO Q8H PRN (Reason: muscle spasm) albuterol sulfate 90 mcg/actuation HFA aerosol inhaler 1 inh INHALATION BID PRN (Reason: bronchospasm) Patient Comments: INHALE 2 PUFF INHALED EVERY 6 HOURS NEEDED FOR COUGH tamsulosin 0.4 mg Capsule 0.4 mg PO QDAY Qty: 30 0RF pantoprazole [Protonix] 40 mg tablet,delayed release (DR/EC) 40 mg PO QDAY Qty: 30 0RF ibuprofen 800 mg tablet 800 mg PO TID PRN (Reason: pain) Qty: 30 0RF Referrals: Jacinto Diaz MD [Primary Care Provider, Family Practice] - In 1 week Problem List Clinical Impression: Acute appendicitis, Cholelithiasis, Alcohol abuse Patient/Caregiver Discharge Instructions Print Language: [place] Stand Alone Forms: Mayuri Award Info., Patient Portal Info Letter
--- NOTE | 2025-04-15 21:44 | XR_ITS ---
Examination: CT abdomen with intravenous contrast CT pelvis with intravenous contrast 2-D coronal reconstructions 2-D sagittal reconstructions Date and time of exam: April 15, 2025, 11:28 p.m, comparison 03/01/2025 INDICATIONS: Abdominal pain beginning 4 days ago. CTDI: vol (mGy) 8.48 DLP: (mGycm) 567 Technique: Multiple axial sections of the abdomen and pelvis have been obtained. 64 slice high-resolution scanner used. 3 mm axial sections have been obtained, post intravenous injection 60 cc Isovue-370 2-D sagittal, coronal reconstructions obtained. Low dose protocols were performed. One or more of the following dose reduction techniques were used; automated exposure control, adjustment of the mA and/or KV according to patient size, use of iterative reconstruction technique. Findings: No focal liver or splenic lesions Hepatosplenomegaly, liver is irregular in contour Gallstones No pancreatic or adrenal mass Atrophic left kidney with renal moderate scar formation Aorta normal size No bowel obstruction The appendix is thickened with mild inflammatory change medial below the cecum No pericecal abscess Urinary bladder intact No prostatomegaly IMPRESSION: Cirrhosis versus primary hepatocellular disease The appendix is thickened with mild inflammatory change consistent with acute appendicitis, the appearance should be clinically correlated
--- NOTE | 2025-04-15 21:45 | XR_ITS ---
Examination: Abdomen sonogram, Limited Date and time of exam: April 15, 2025, 1008 hours INDICATIONS: Right lower abdominal pain and tenderness beginning 3 days ago Technique: Real-time cortes scale transabdominal sonographic images of the upper abdomen obtained. Findings: Contracted gallbladder with multiple gallstones Gallbladder wall 0.5 cm Pancreatic head 3.2 cm Common bile duct 0.6 cm no stones Liver 17.5 cm fatty infiltration no focal liver lesions Normal hepatopetal portal venous flow Patent IVC IMPRESSION: Cholelithiasis Thickened gallbladder wall, enlarged common bile duct 0.6 cm, consider MRCP follow-up to exclude cholecystitis and exclude stones in the common bile duct
[2025-04-15] MEDS: RINGERS LACTATED 1000 ML 1,000 ML 999 ML IV (21:51)
[2025-04-15] MEDS: MORPHINE SULF INJ 4 MG/ML VIAL IVP (21:51)
[2025-04-15 22:03] LABS: Basophils # (Auto) 0.0 Thou/mm3 (0.0-0.2); Basophils % (Auto) 0 % (0-2.5); Eosinophils # (Auto) 0.1 Thou/mm3 (0.0-0.5); Eosinophils % (Auto) 1 % (0-10); Hematocrit 32.5 % (41.0-53.0); Hemoglobin 10.5 g/dL (13.5-16.0); Immature Granulocytes Auto 0.03 Thou/mm3 (0.00-0.00); Lymphocytes # (Auto) 1.0 Thou/mm3 (1.0-4.8); Lymphocytes % (Auto) 13 % (10-50); Mean Corpuscular HGB Conc 32.3 g/dl (31.0-37.0); Mean Corpuscular Hemoglobin 29.0 pg (25.0-35.0); Mean Corpuscular Volume 90 fL (80-100); Monocytes # (Auto) 0.9 Thou/mm3 (0.0-0.8); Monocytes % (Auto) 12 % (0-12); Neutrophils # (Auto) 5.2 Thou/mm3 (1.8-7.7); Neutrophils % (Auto) 72 % (37-80); Nucleated Red Blood Cell # 0.00 Thou/mm3 (0.00-0.00); Nucleated Red Blood Cell % 0 /100 WBC (0); Platelet Count 114 Thou/mm3 (140-440); RDW Standard Deviation 52.3 fL (35.1-43.9); Red Blood Count 3.62 Miln/mm3 (4.50-5.90); White Blood Count 7.2 Thou/mm3 (3.8-10.6)
[2025-04-15 22:18] LABS: Alanine Aminotransferase 153 U/L (10-49); Albumin, Serum 4.4 gm/dL (3.5-5.0); Albumin/Globulin Ratio 1.8 (1.2-2.2); Alcohol, Blood Medical 284.1 mg/dL (0-10.0); Alkaline Phosphatase 369 U/L (46-116); Anion Gap 14 (7-16); Aspartate Amino Transferase 183 U/L (0-34); BUN/Creatinine Ratio 15 Ratio (12-20); Bilirubin,Total 0.8 mg/dL (0.3-1.2); Blood Urea Nitrogen 15 mg/dL (9-23); Calcium 9.1 mg/dL (8.3-10.6); Calcium (Corrected) 9.1 mg/dL (8.5-10.1); Carbon Dioxide 22.5 mMol/L (20.0-31.0); Chloride 111 mMol/L (98-107); Creatinine (Component) 1.0 mg/dL (0.6-1.3); Estimated Creatinine Clearance 109.6 mL/min (>60); Globulin 2.5 gm/dL (2.3-3.5); Glucose 139 mg/dL (74-106); Lipase 75 U/L (12-53); Osmolality,Calculated 295 (275-295); Potassium 3.2 mMol/L (3.4-5.1); Sodium 147 mMol/L (136-145); Total Protein 6.9 gm/dL (5.7-8.2); eGFR > 60 See Note
[2025-04-15 23:50] LABS: Collection Type, Urine Voided; Squamous Epithelial Cell,Urine 0 /hpf (0-5)
[2025-04-15 23:53] LABS: Bilirubin,Urine Negative (Negative); Blood,Urine Negative (Negative); Clarity,Urine Clear (Clear/Hazy); Color,Urine Yellow (Lt Yel-Yel); Glucose, Urine Trace (Negative); Hyaline Casts,Urine < 1 /hpf (0-1); Ketones,Urine Negative (Negative); Leukocyte Esterase,Urine Negative (Negative); Nitrite,Urine Negative (Negative); PH,Urine 6.0 (5.0-7.0); Protein,Urine Trace (Neg - Trace); RBC,Urine 1 /hpf (0-3); Specific Gravity,Urine 1.028 (1.001-1.035); Urobilinogen,Urine 2.0 mg/dL (0.0-1.0); WBC,Urine 2 /hpf (0-5)
[2025-04-16] VITALS (14 sets, daily range): BP systolic 122–175; BP diastolic 59–106; PULSE 69–87; RESP 12–95; TEMP 36.2–37; O2SAT 18–100; BMI 27.5; BMI 27.6
[2025-04-16] LABS: Amphetamine/Methamp Scrn,U Positive (Negative); Barbiturate Screen,Urine Negative (Negative); Benzodiazepines Screen,Urine Negative (Negative); Benzoylecgonine Screen, Ur Negative (Negative); Fentanyl Screen,Urine Negative (Negative); Opiate Screen,Urine Positive (Negative); THC Screen,Urine Negative (Negative)
[2025-04-16] MEDS: cefTRIAXone/D5w 1gm IV premix 1 GM/50 ML BAG IV (00:07)
[2025-04-16] MEDS: metroNIDAZOLE/NS 500 MG IVPB 500 MG/100 ML BAG 100 MG IV (00:39)
--- NOTE | 2025-04-16 01:52 | ESHP_ITS ---
<Statement entered by Tony Moore MD - 04/16/25 07:15> I have discussed and was present for the essential components of the history, physical examination, diagnosis, and treatment plan with the resident. I agree with the patient's care as documented by the resident and amended herein by me. Tony Moore MD FACP. Documentation for date of: 04/16/25 HPI History of Present Illness History of present illness: Mr. Goddard is a 50-year-old gentleman with history of uncontrolled hypertension, alcohol use disorder, methamphetimine use disorder, with multiple prior presentations to the emergency department for RLQ pain found to have chronic appendicitis has been previously admitted for appendicitis, Surgery was consulted but patient declined surgery at that time and was sent out on Augmentin however patient reports that he did not complete course of antibiotics and re-presented to the emergency department with right lower quadrant pain surgery had been consulted at that time who recommended laparoscopic appendectomy patient again did not want surgery at that time was just discharged with Augmentin. Now today he would like to have the operation because he is tired of feeling the uncomfortable abdominal pain. Patient admitted for acute appendicitis. ED Course Summary: Vitals: 180/104, HR 93, RR 18, T 98.1F O2 95% RA Labs:WBC wnl, Na: 147, K 3.2 Cr 1.0 BUN 15 LFTs elevated chronically UA unremarkable, UDS + for opiates, meth, Alc level elevtated, lipase 75 Imaging: CT scans was diagnosed with acute appendicitis, GB ultrasound thickened gallbladder wall CBD 0.6cm Tx: ceftriaxone and flagyl, morphine 4mg IV, and LR 1L Dr. Blood, general surgery consulted for lap appy Code: Full Insulin: None Medical Hx: Seen above Medications: Pending med rec Allergies: KNA Surgical history: Denies Fhx: Noncontributory Social history: 18+ beers per day he is housed, however family notes that he is frequently found on the streets., Endorses methamphetamine use UTOX positive for methamphetamine last drink of alcohol was 03/01 afternoon Medications: Medication reconciliation pending Patient admitted for: All 12 systems reviewed and were negative except otherwise stated in HPI. Exam Vital Signs Temp Pulse Resp BP Pulse Ox O2 Del Method 98.1 F 93 18 180/104 H 95 Room Air 04/15/25 21:25 04/15/25 21:25 04/15/25 21:25 04/15/25 21:25 04/15/25 21:25 04/15/25 21:25 Narrative Exam GENERAL APPEARANCE: AOx4. NAD, activity normal for age, well developed/ well nourished, no cyanosis, pallor, or diaphoresis. HEENT: Normocephalic atraumatic, no facial trauma, neck is supple. Lids/conjunctiva normal. Mucous membranes moist, nares normal, poor dentition. uvula midline without oral pharyngeal erythema, exudate or swelling TMs normal bilaterally. No lymphangitis/lymphedema. CARDIAC: Regular rate and rhythm, S1+S2 heard. No murmurs, rubs, or gallops noted RESPIRATORY: respiratory effort normal, speaks in full sentences, no tripod position, no accessory muscle use. Lungs clear to auscultation without rhonchi, wheezes, rales ABDOMINAL: NBS. Soft, ND TTP at RUQ, McBurney point + TTP Nils + (pain with cough). No evidence of fluid wave. No pulsatile masses on exam, rebound tenderness. MUSCLES/EXTREMITIES: No abnormal range of motion, no swelling. DERM: Warm, pink and dry. No rashes, dermatoses, petechiae or lesions. NEUROLOGICAL: Speech is clear and appropriate. Normal level of consciousness. Gait and coordination are normal. 5/5 strength in all extremities. PSYCH: Normal mood and affect. Judgement/competence is appropriate Results: Labs 04/15/25 21:48 04/15/25 21:48 Labs: Short CBC 04/15/25 Range/Units 21:48 WBC 7.2 (3.8-10.6) Thou/mm3 Hgb 10.5 L (13.5-16.0) g/dL Hct 32.5 L (41.0-53.0) % Plt Count 114 L D (140-440) Thou/mm3 BMP 04/15/25 21:48 Sodium 147 H Potassium 3.2 L Chloride 111 H Carbon Dioxide 22.5 BUN 15 Creatinine 1.0 Glucose 139 H Calcium 9.1 Liver Function 04/15/25 Range/Units 21:48 Total Bilirubin 0.8 (0.3-1.2) mg/dL AST 183 H (0-34) U/L ALT 153 H (10-49) U/L Alkaline Phosphatase 369 H (46-116) U/L Albumin 4.4 (3.5-5.0) gm/dL Urine 04/15/25 Range/Units 23:40 Urine Color Yellow (Lt Yel-Yel) Urine Clarity Clear (Clear/Hazy) Urine pH 6.0 (5.0-7.0) Ur Specific [place] 1.028 (1.001-1.035) Urine Protein Trace (Neg - Trace) Urine Glucose (UA) Trace (Negative) Quality Measures Quality Measures none Medications Home Medications and Allergies Home Medications ?Medication ?Instructions ?Recorded ?Confirmed ?Type albuterol sulfate 90 mcg/actuation 1 inh inhalation BI D PRN 12/26/24 03/02/25 History aerosol inhaler bronchospasm baclofen 10 mg tablet 10 mg PO Q8H PRN muscle spas m 12/26/24 03/02/25 History Allergies Allergy/AdvReac Type Severity Reaction Status Date / Time No Known Allergies Allergy Verified 04/07/25 18:48 Visit Medications Acetaminophen (Acetaminophen 325 Mg Tablet) 650 mg PO Q6H PRN PRN Reason: Fever >100.4 or pain 1-3 Stop: 05/16/25 01:45 Hydrocodone Bitart/Acetaminophen (Hydrocodone/Apap 5/325 Tablet) 1 tab PO Q4HR PRN PRN Reason: PAIN SCALE 4-6 (Moderate Stop: 04/21/25 01:45 Docusate Sodium (Docusate Sod 100 Mg Capsule) 100 mg PO QDAY [facility]; Protocol Stop: 05/16/25 08:59 Lactated Ringer's (Lactated Ringers) 1,000 mls @ 75 mls/hr IV .[id number] [facility] Stop: 05/16/25 01:59 Morphine Sulfate (Morphine Sulf Inj 4 Mg/Ml Vial) 1 mg IVP Q4HR PRN PRN Reason: PAIN SCALE 7-10 (Severe Stop: 04/21/25 01:45 Ondansetron HCl (Ondansetron Inj 2 Mg/Ml Inj 2 Ml) 4 mg IVP Q6H PRN; Protocol PRN Reason: NAUSEA OR VOMITING Stop: 05/16/25 01:45 Pantoprazole Sodium (Pantoprazole Inj 40 Mg Vial) 40 mg IVP QDAY [facility] Stop: 05/16/25 08:59 Discontinued Medications Lactated Ringer's (Lactated Ringers) 1,000 mls @ 999 mls/hr IV .Q1H1M ONE Stop: 04/15/25 22:44 Last Infusion: 04/15/25 23:00 Dose: Infused Ceftriaxone Sodium/Dextrose (Rocephin/D5w 1gm Iv Premix) 1 gm in 50 mls @ 100 mls/hr IV X1 ONE Stop: 04/16/25 00:31 Last Infusion: 04/16/25 00:37 Dose: Infused Metronidazole (Flagyl 500 Mg Iv) 500 mg in 100 mls @ 100 mls/hr IV X1 ONE Stop: 04/16/25 01:01 Last Admin: 04/16/25 00:39 Dose: 100 mls/hr Morphine Sulfate (Morphine Sulf Inj 4 Mg/Ml Vial) 4 mg IVP X1 ONE Stop: 04/15/25 21:45 Last Admin: 04/15/25 21:51 Dose: 4 mg Assessment & Plan Plan Mr. Goddard is a 50-year-old gentleman with hypertension?poorly controlled, alcohol use disorder, methamphetamine use disorder with multiple prior presentations to the emergency department and admissions for right lower quadrant pain found to have appendicitis however patient declined surgery and sent out with antibiotics he does not complete, again presented to the emergency department with right lower quadrant pain, meth positive, and elevated ethyl alcohol levels, admitted for appendicitis. #Appendicitis Patient presented on 04/16 with abdominal pain, physical exam positive of mcburney point tenderness and nils sign.based on CT scans was diagnosed with acute appendicitis. Patient presented in similar presentation multiple times and declined surgical treatment eval by surgery at the time recommended treatment with outpatient antibiotics or surgery. Patient did not complete antibiotic course, presents today with increased abdominal pain, most predominant in right lower quadrant. Dr Blood consulted by ED, recommends admission and to eval in the morning. Patient notes he has had fevers and shortness of breath recently, notably diaphoretic on exam. - N.p.o. - General Surgery consulted, appreciate recommendations - Ceftriaxone 2 g IV daily (started 02/06) - Flagyl 500 mg IV every 8 hours (started 02/06) - Morphine 1mg IV every 4 hours as needed for severe pain - IVF: LR at 100 mL/h x 1 L #Hypertensive Urgency Pt reports not taking any of his home meds. may have been previously prescribed amlodipine 5. Also currently on meth. - Nifedipine 30mg PO QD - goal BP, avoid dropping bp >15%, goal sbp~160s #Chronic Transaminitis 2/2 #AUD AST 183, ALT 153 ALP 369 appears to be baseline. T. Bili:0.8 thrombocytopenia,PLT 119, coag panel wnl GB ultrasound thickened gallbladder wall CBD 0.6cm Less concern for gallstones, since T bili is wnl and CBD is only minimally dilated from baseline. Plan: - MRCP #EtOH withdrawal #CIWA Drinks 18 beers/day. ethyl blood level; 284.1.Last drink was today Plan: -CIWA protocol #Electrolyte disturbances #Hypokalemia #Hypernatremia suspect 2/2 gi losses and poor po intake. Given 60mEq on admission. IVF given in ED Plan: - CTM with renal panels #Methamphetamine abuse Patient history of meth abuse, denies any use of drugs but has had positive U tox in the past. - [employer] patient regarding addiction services Health Maintenance: Code status: Full DVT prophylaxis: SCDs GI prophylaxis: Diet: NPO Beck: None Lines: PIV Supplemental O2: None Disposition: Med surg for appendectomy Patient seen and reviewed with attending Dr. Moore. Note written by Rodri Christian MD PGY-1
[2025-04-16] MEDS: RINGERS LACTATED 1000 ML 1,000 ML 75 ML IV (02:49)
[2025-04-16] MEDS: POTASSIUM CHL 10 mEq IVPB 10 MEQ/100 ML BAG 100 MEQ IV ×10 (03:46→16:25)
[2025-04-16] MEDS: metroNIDAZOLE/NS 500 MG IVPB 500 MG/100 ML BAG 200 MG IV (05:10)
--- NOTE | 2025-04-16 05:30 | PC.NURSE ---
Contacted Dr Nobles d/t pts BP 166/104, no orders received, Dr stated they will not treat unless BP is over 180 SBP
[2025-04-16] MEDS: MORPHINE SULF INJ 4 MG/ML VIAL 1 MG IVP ×3 (05:36→20:32)
[2025-04-16 05:52] LABS: Basophils # (Auto) 0.0 Thou/mm3 (0.0-0.2); Basophils % (Auto) 1 % (0-2.5); Eosinophils # (Auto) 0.1 Thou/mm3 (0.0-0.5); Eosinophils % (Auto) 3 % (0-10); Hematocrit 30.1 % (41.0-53.0); Hemoglobin 9.5 g/dL (13.5-16.0); Immature Granulocytes Auto 0.02 Thou/mm3 (0.00-0.00); Lymphocytes # (Auto) 0.6 Thou/mm3 (1.0-4.8); Lymphocytes % (Auto) 14 % (10-50); Mean Corpuscular HGB Conc 31.6 g/dl (31.0-37.0); Mean Corpuscular Hemoglobin 29.1 pg (25.0-35.0); Mean Corpuscular Volume 92 fL (80-100); Monocytes # (Auto) 0.5 Thou/mm3 (0.0-0.8); Monocytes % (Auto) 13 % (0-12); Neutrophils # (Auto) 2.9 Thou/mm3 (1.8-7.7); Neutrophils % (Auto) 69 % (37-80); Nucleated Red Blood Cell # 0.00 Thou/mm3 (0.00-0.00); Nucleated Red Blood Cell % 0 /100 WBC (0); Platelet Count 84 Thou/mm3 (140-440); RDW Standard Deviation 54.3 fL (35.1-43.9); Red Blood Count 3.27 Miln/mm3 (4.50-5.90); White Blood Count 4.2 Thou/mm3 (3.8-10.6)
[2025-04-16 06:27] LABS: Alanine Aminotransferase 126 U/L (10-49); Albumin, Serum 4.0 gm/dL (3.5-5.0); Albumin/Globulin Ratio 1.7 (1.2-2.2); Alkaline Phosphatase 314 U/L (46-116); Anion Gap 12 (7-16); Aspartate Amino Transferase 138 U/L (0-34); BUN/Creatinine Ratio 16 Ratio (12-20); Bilirubin,Total 0.7 mg/dL (0.3-1.2); Blood Urea Nitrogen 11 mg/dL (9-23); Calcium 9.2 mg/dL (8.3-10.6); Calcium (Corrected) 9.2 mg/dL (8.5-10.1); Carbon Dioxide 23.7 mMol/L (20.0-31.0); Chloride 112 mMol/L (98-107); Creatinine (Component) 0.7 mg/dL (0.6-1.3); Estimated Creatinine Clearance 139.5 mL/min (>60); Globulin 2.3 gm/dL (2.3-3.5); Glucose 101 mg/dL (74-106); Magnesium 1.6 mg/dL (1.6-2.6); Osmolality,Calculated 293 (275-295); Phosphorous 4.8 mg/dL (2.4-5.1); Potassium 3.1 mMol/L (3.4-5.1); Sodium 148 mMol/L (136-145); Total Protein 6.3 gm/dL (5.7-8.2); eGFR > 60 See Note
--- NOTE | 2025-04-16 08:00 | PC.NURSE ---
Pt's blood pressure has been elevated. This morning the blood pressure is 163/106. Called Dr. De La Cruz and made aware. DrMaricel will come see patient. No new orders given. Per Dr. De La Cruz, patient can have PO meds with sips of water.
[2025-04-16] MEDS: DOCUSATE SOD 100 MG CAPSULE PO (08:11)
[2025-04-16] MEDS: THIAMINE 100 MG TABLET PO ×2 (08:11→20:26)
[2025-04-16] MEDS: NIFEdipine XL 30 MG TABCR PO (08:11)
[2025-04-16] MEDS: FOLIC ACID 1 MG TABLET PO ×2 (08:12→20:25)
--- NOTE | 2025-04-16 08:30 | ESCONSULT_ITS ---
HPI Consult details Consult date: 04/16/25 Reason for consultation narrative: Right lower quadrant abdominal pain with nausea History of present illness: 50-year-old male with history of hypertension, alcohol use disorder and methamphetamine use has been admitted to the hospital with abdominal pain on multiple occasions. CT scans have revealed thickening of appendix, he was evaluated in the past by myself and recommended laparoscopic appendectomy. However, patient has refused surgery in the past. He is readmitted with lower abdominal pain with nausea. CT scan revealed thickened appendix with some periappendiceal inflammatory changes. Review of Systems Constitutional Constitutional: Denies chills and Denies fever(s) Cardiovascular Cardiovascular: Denies chest pain Respiratory Respiratory: Denies cough Gastrointestinal Gastrointestinal: Reports abdominal pain and Reports nausea Genitourinary Genitourinary: Denies difficulty urinating Hematologic/Lymphatic Hematologic/Lymphatic: Denies easy bleeding and Reports easy bruising Past Medical History Surgical History OTHER SURGICAL HX: No surgeries in the past Meds Home Medications and Allergies Home Medications ?Medication ?Instructions ?Recorded ?Confirmed ?Type albuterol sulfate 90 mcg/actuation 1 inh inhalation BI D PRN 12/26/24 04/16/25 History aerosol inhaler bronchospasm baclofen 10 mg tablet 10 mg PO Q8H PRN muscle spas m 12/26/24 04/16/25 History benzonatate 200 mg capsule 200 mg PO TID PRN cough 11/0304/16/25 History cetirizine 10 mg tablet 10 mg PO DAILY PRN congestio n 04/16/25 04/16/25 History ipratropium bromide 42 mcg (0.06 2 spray intranasal Q6 HR PRN 04/16/25 04/16/25 History %) nasal spray allergy symptoms metoclopramide HCl 10 mg tablet 10 mg PO Q6H PRN nause a and 04/16/25 04/16/25 History vomiting Allergies Allergy/AdvReac Type Severity Reaction Status Date / Time No Known Allergies Allergy Verified 04/07/25 18:48 Exam Vital Signs Temp Pulse Resp BP Pulse Ox O2 Del Method 98.6 F 83 18 163/106 H 97 Room Air 04/16/25 04:00 04/16/25 08:11 04/16/25 04:00 04/16/25 08:11 04/16/25 04:00 04/16/25 04:00 Constitutional Constitutional: no acute distress Routine Abdominal Exam Comments: Abdomen is soft and nondistended. He has right lower quadrant abdominal pain with guarding, no rebound tenderness or peritonitis at this time Results Results: Laboratory Laboratory results: results reviewed Results: Imaging CT scan - abdomen: report reviewed and image reviewed CT scan - pelvis: report reviewed and image reviewed Assessment & Plan Problem List (1) Acute appendicitis: Status: Acute Plan Will take patient to operating room for laparoscopic possible open appendectomy. Risks, benefits and alternative procedure explained to the patient. All his questions answered. He voiced understanding and agreed to proceed with the operation. (1) Acute appendicitis Qualifiers: Acute appendicitis type: unspecified acute appendicitis type Qualified Code(s): K35.80 - Unspecified acute appendicitis
--- NOTE | 2025-04-16 09:43 | ESPR_ITS ---
<Statement entered by Vladimir Del Cid MD - 04/17/25 17:00> Patient seen at bedside. Patient is admitted for right lower quadrant abdominal pain and patient was previously also admitted for appendicitis however at that time patient refused surgery but patient's pain did not improve. No nausea vomiting denies any fever. Overnight team consulted surgery and patient is scheduled to undergo laparoscopic appendectomy today with Dr. Blood. Will continue IV antibiotics and pain control. Patient was seen and examined by me personally. I have directly supervised and reviewed documentation by the team resident and agree with its findings. ------- Plan of care was discussed with the attending, Dr. Dina Del Cid, PGY-2 Documentation for date of: 04/16/25 Subjective Subjective Interval history: Patient admitted overnight for acute appendicitis. Patient reports that he was previously in the ED for similar symptoms and sent home with antibiotics, but the abdominal pain has worsened. He is now amenable to surgery. He was not compliant with taking antibiotics. He is also prescribed 3 antihypertensives, ran out of medications. Denies T2DM but does have chronic b/l toe numbness. He reports drinking a gallon of vodka daily, intermittent use of methamphetamines. Denies hx IVDU. Patient works at a [employer] and lives with his sister. PCP: Family health Specialists: none Exam Vital Signs Temp Pulse Resp BP Pulse Ox O2 Del Method 98.6 F 83 18 163/106 H 97 Room Air 04/16/25 04:00 04/16/25 08:11 04/16/25 04:00 04/16/25 08:11 04/16/25 04:00 04/16/25 04:00 Narrative Exam General: No acute distress, well nourished, dirt under fingernails and toenails Eye: PERRL, EOMI, normal conjunctiva, no scleral icterus HENT: Normocephalic, atraumatic, normal hearing, dry oral mucosa, poor dentition Neck: Supple, non-tender, no JVD, no lymphadenopathy Lungs: Clear to auscultation bilaterally, non-labored respirations, symmetric chest rise, no use of accessory muscles Heart: Normal S1 and S2, no S3 or S4 appreciated. Normal rate and regular rhythm, no murmurs, rubs gallops, or edema. Peripheral pulses intact bilaterally, capillary refill brisk distally Abdomen: Soft, nondistended, diffuse guarding and TTP, McBurney point + TTP Nils + (pain with cough), normal bowel sounds. No guarding or rebound tenderness. Musculoskeletal: Normal range of motion and strength, no tenderness or swelling Skin: Skin is warm, dry, no rashes or lesions. Neurologic: Alert, awake and oriented x3. CN II-XII grossly intact. No focal neuro deficits. No signs of meningeal irritation noted. (chronic) b/l toe numbness (dorsal and plantar) that extends to midfoot Psychiatric: Cooperative, appropriate mood and affect CIWA: Nausea/vomitin Tremor: 4 Paroxysmal sweats: 2 Anxiety: 0 Agitation: 0 Tactile disturbance: 0 Auditory disturbance: 0 Visual disturbance: 0 Headache/fullness in head: 3 Orientation/clouding of sensorium: 0 Total: 12 Objective Labs 04/17/25 05:23 04/17/25 05:23 Labs: Laboratory Results - last 24 hr 04/15/25 04/15/25 04/16/25 21:48 23:40 05:12 WBC 7.2 4.2 D RBC 3.62 L 3.27 L Hgb 10.5 L 9.5 L Hct 32.5 L 30.1 L MCV 90 92 MCH 29.0 29.1 MCHC 32.3 31.6 RDW Std Deviation 52.3 H 54.3 H Plt Count 114 L D 84 L D Neut % (Auto) 72 69 Lymph % (Auto) 13 14 [place] % (Auto) 12 13 H Eos % (Auto) 1 3 Baso % (Auto) 0 1 Neut # (Auto) 5.2 2.9 Lymph # (Auto) 1.0 0.6 L [place] # (Auto) 0.9 H 0.5 Eos # (Auto) 0.1 0.1 Baso # (Auto) 0.0 0.0 Immature Gran # (Auto) 0.03 H 0.02 H Absolute Nucleated RBC 0.00 0.00 Immature Gran % 0 1 H Nucleated RBC % 0 0 Sodium 147 H 148 H Potassium 3.2 L 3.1 L Chloride 111 H 112 H Carbon Dioxide 22.5 23.7 Anion Gap 14 12 BUN 15 11 Creatinine 1.0 0.7 Estim Creat Clear Calc 109.6 139.5 eGFR > 60 > 60 BUN/Creatinine Ratio 15 16 Glucose 139 H 101 Calculated Osmolality 295 293 Calcium 9.1 9.2 Corrected Calcium 9.1 9.2 Phosphorus 4.8 Magnesium 1.6 Total Bilirubin 0.8 0.7 AST 183 H 138 H ALT 153 H 126 H Alkaline Phosphatase 369 H 314 H D Total Protein 6.9 6.3 Albumin 4.4 4.0 Globulin 2.5 2.3 Albumin/Globulin Ratio 1.8 1.7 Lipase 75 H Ur Collection Type Voided Urine Color Yellow Urine Clarity Clear Urine pH 6.0 Ur Specific [place] 1.028 Urine Protein Trace Urine Glucose (UA) Trace Urine Ketones Negative Urine Blood Negative Urine Nitrite Negative Urine Bilirubin Negative Urine Urobilinogen (Auto) 2.0 Ur Leukocyte Esterase Negative Urine RBC 1 Urine WBC 2 Ur Squamous Epith Cells 0 Urine Bacteria None Hyaline Casts < 1 Urine Opiates Screen Positive A Urine Fentanyl Screen Negative Ur Barbiturates Screen Negative U Amphetamin/Meth Scrn Positive A U Benzodiazepines Scrn Negative U Cocaine Metab Screen Negative U Marijuana (THC) Screen Negative Ethyl Alcohol 284.1 H Quality Measures Quality Measures none Assessment & Plan Assessment Current Active Medications: Generic Name Dose Route Start Last Admin Trade Name Freq PRN Reason Stop Dose Admin Acetaminophen 650 mg 04/16/25 01:46 Acetaminophen 325 Mg Tablet PO 05/16/25 01:45 Q6H PRN Fever >100.4 or pain 1-3 Hydrocodone Bitart/Acetaminophen 1 tab 04/16/25 01:46 Hydrocodone/Apap 5/325 Tablet PO 04/21/25 01:45 Q4HR PRN PAIN SCALE 4-6 (Moderate Docusate Sodium 100 mg 04/16/25 09:00 04/16/25 08:11 Docusate Sod 100 Mg Capsule PO 05/16/25 08:59 100 mg QDAY ROYER Administration Protocol Folic Acid 1 mg 04/16/25 09:00 04/16/25 08:12 Folic Acid 1 Mg Tablet PO 04/21/25 08:59 1 mg BID ROYER Administration Lactated Ringer's 1,000 mls @ 75 mls/hr 04/16/25 02:00 04/16/25 02:49 Lactated Ringers IV 05/16/25 01:59 75 mls/hr .[id number] ROYER Administration Ceftriaxone Sodium 2 gm/ 50 mls @ 100 mls/hr 04/16/25 21:00 Sodium Chloride IV 04/23/25 20:59 2100 ROYER Metronidazole 500 mg in 100 mls @ 200 mls/hr 04/16/25 06:00 04/16/25 05:10 Flagyl 500 Mg Iv IV 04/23/25 05:59 200 mls/hr Q8HR ROYER Administration Lorazepam 0.5 mg 04/16/25 08:22 Lorazepam 0.5 Mg Tablet PO 04/21/25 08:21 Q4H PRN CIWA 2-6 Midazolam HCl 2 mg 04/16/25 08:22 Midazolam Inj 1 Mg/Ml Vial 2 Ml IVP 04/21/25 08:21 Q2H PRN CIWA 7-11 Midazolam HCl 4 mg 04/16/25 08:22 Midazolam Inj 1 Mg/Ml Vial 2 Ml IVP 04/21/25 08:29 Q2H PRN CIWA 12-20 Morphine Sulfate 1 mg 04/16/25 01:46 04/16/25 05:36 Morphine Sulf Inj 4 Mg/Ml Vial IVP 04/21/25 01:45 1 mg Q4HR PRN Administration PAIN SCALE 7-10 (Severe Nifedipine 30 mg 04/16/25 09:00 04/16/25 08:11 Nifedipine Xl 30 Mg Tabcr PO 05/16/25 08:59 30 mg QDAY ROYER Administration Ondansetron HCl 4 mg 04/16/25 01:46 Ondansetron Inj 2 Mg/Ml Inj 2 Ml IVP 05/16/25 01:45 Q6H PRN NAUSEA OR VOMITING Protocol Pantoprazole Sodium 40 mg 04/16/25 09:00 04/16/25 08:11 Pantoprazole Inj 40 Mg Vial IVP 05/16/25 08:59 40 mg QDAY [facility]ER Administration Thiamine HCl 100 mg 04/16/25 09:00 04/16/25 08:11 Thiamine 100 Mg Tablet PO 04/21/25 08:59 100 mg BID ROYER Administration Plan Mr. Goddard is a 50-year-old gentleman with poorly controlled HTN, polysubstance use disorder (EtOH, methamphetamine, opiates) with multiple prior similar presentations to the emergency department and admissions for RLQ pain, appendicitis previously managed with antibiotoics though patient noncompliant with medications. EtOH 284.1, UDS + meth, opiates. Admitted for acute appendicitis. #Appendicitis Multiple previous ED visits for appendicitis, refused surgery, managed with antibiotics, though patient noncompliant with medications Initial presentation: RLQ pain, +Mcburney point, +Nils sign, N/V CT a/p: cirrhosis vs primary hepatocellular disease; acute appendicitis; cholelithiassis; atrophic left kidney with scarring Plan: - Dr. Blood consulted, appreciate recs - plan for laparoscopic appendectomy 04/16 - NPO - Maintenance IV fluids: LR 75 mL/hr - Ceftriaxone 2 g IV daily (03/15-) - Flagyl 500 mg IV every 8 hours (03/15-) - Pain management: Tylenol PO PRN, [place] 5 mg q4h PRN, morphine 1 mg IV q4h PRN - Pending Bcx #Hypertensive Urgency #Hx Hypertension #Noncompliance with medications Previously prescribed 3 antihypertensives that he does not take at home Plan: - Nifedipine 30mg PO QD - goal BP, avoid dropping bp >15%, goal sbp~160s #Cirrhosis vs primary hepatocellular disease #Cholelithiasis #Chronic Transaminitis #Thrombocytopenia On admit: AST 183, ALT 153 ALP 369 appears to be baseline. T. Bili:0.8 PLT 119 --> 84, coag panel wnl GB ultrasound: thickened gallbladder wall CBD 0.6cm CT a/p: cirrhosis vs primary hepatocellular disease, cholelithiasis Less concern for gallstones, since T bili is wnl and CBD is only minimally dilated from baseline. HIDA 03/02: Cystic duct obstruction pattern Plan: - CTM for RUQ pain, daily CMP #Polysubstance use disorder (methamphetamine, EtOH, opioids) #EtOH withdrawal Drinks 18 beers/day EtOH 284.1, UDS + meth, opiates Plan: - CIWA: - Aitvan 0.5 mg PO q4h CIWA 2-6 - Midazolam 2 mg IV q2h CIWA7-11 - Midazolam 4 mg IV q2h CIWA 12-20 - Librium 50 mg PO q8h #Electrolyte disturbances #Hypokalemia #Hypernatremia suspect 2/2 gi losses and poor po intake. Given K 60mEq on admission. Given 2L IV fluids in ED Plan: - Ordered 40 mEq KCl - Pending afternoon renal panel - CTM with daily CMP - Maintenance IVF as above Checklist Dispo: Pending appendectomy Lines: PIV Diet: NPO Bowel Reg: Docusate PO daily VTE ppx: SCD given low plt GI ppx: pantoprazole 40 mg IV dialy Pain mgmt: Tylenol PO PRN, [place] 5 mg q4h PRN, morphine 1 mg IV q4h PRN Code status: full Plan discussed with Dr. Karena Del Cid and Dr. Dina De La Cruz MD PGY1 Attending Provider Attestation/Addendum I, Elisabet Arroyo DO, attest that I was physically present for the [place] portions of the service and evaluated the patient with the resident and I reviewed and discussed the case with the resident and agree with the resident's findings and plans of care as documented above Patient seen and evaluated this AM. Patient underwent lap appy this AM. He states he is feeling well. Patient has mild tremors, CIWA score of 1. He denies any pain, nausea, fevers, chills, shortness of breath, chest pain. Will continue with postop care. Anticipate DC within next 24h if cleared by surgeon.
--- NOTE | 2025-04-16 12:37 | ESOP_ITS ---
Date of Procedure 04/16/25 Pre Op Diagnosis Chronic appendicitis Post Op Diagnosis Chronic appendicitis Procedure Laparoscopic appendectomy Findings Mildly hyperemic and dilated appendix without perforation. Significantly cirrhotic liver, gallbladder did not appear to be distended without evidence of inflammation Procedure Description Patient was brought into the operating room in supine position. After administration of general endotracheal anesthesia, abdomen was prepped and draped in standard surgical manner. A Veress needle was inserted through the umbilicus and pneumoperitoneum was obtained up to 15 mmHg. The Veress needle was removed and a 5 mm umbilical incision was made. A 5 mm trocar was placed and laparoscopic camera was inserted. Under direct visualization a laparoscopic camera a 5 mm trocar placed in suprapubic region and a 10 mm trocar placed in left lower quadrant. The abdomen was inspected, the cecum was identified and followed until the appendix was identified. The appendix was noted to be mildly hyperemic and dilated without perforation. A window was created between the appendix and mesoappendix and the appendix was divided near the appendix and cecal junction with blue Endo BHARAT stapling device. The mesoappendix was divided with cortes Endo BHARAT stapling device. The appendix was placed inside an Endo Catch and removed from the abdomen utilizing left lower quadrant trocar site. Abdomen and pelvis copiously and thoroughly washed and irrigated, all the fluids were suctioned and the suctioned fluid returned clear. Hemostasis was adequate and satisfactory, staple lines were intact without bleeding or any leakage. The right upper quadrant was inspected, patient was noted to have significantly cirrhotic liver. The gallbladder did not appear to be distended or inflamed. Left lower quadrant trocar sites fascial defect was closed with 0 Vicryl using Endo closure device. Instruments and trocars removed, pneumoperitoneum was evacuated and the incisions closed with 4-0 Monocryl subcuticular fashion. Instruments, needles and sponge counts were reported to be correct ??2. Patient tolerated the procedure well, was extubated, breathing spontaneously and without difficulty and was transferred to postanesthesia care in stable condition. Anesthesia GETA and local Pathology / specimen Other (Appendix) Estimated Blood Loss 10 Condition Stable Disposition PACU Surgeon Moose Blood MD Surgical Staff Operation Date: 04/16/25 12:45 Case Staff DATA PROCESSING CONTROL CLERK: Micah Brian RN First Assistant: Leandra Madden
--- NOTE | 2025-04-16 12:45 | SUR.PHASEI ---
1245: Pt. wakes to name then drifts back to sleep, vitals stable, breathing unlabored, no signs of distress, x3 dermabond sites to ABD CDI, no active bleed noted, report recieved from Micheal POON and Herson BLAKELY.
[2025-04-16] MEDS: fentaNYL CIT INJ 50 mCg/ML AMP 2ML IVP ×2 (13:08→13:19)
--- NOTE | 2025-04-16 13:35 | SUR.PHASEI ---
1335:Pt. AAOx4, vitals stable, breathing unlabored, no complaint of pain or nausea, x3 dermabond sites to ABD CDI, no active bleed noted, pt. tolerated sips of water well, gave report to Sapphire POON prior to transfer to room 375.
[2025-04-16 14:37] LABS: Albumin, Serum 4.1 gm/dL (3.5-5.0); Anion Gap 11 (7-16); BUN/Creatinine Ratio 16 Ratio (12-20); Blood Urea Nitrogen 11 mg/dL (9-23); Calcium 8.8 mg/dL (8.3-10.6); Calcium (Corrected) 8.8 mg/dL (8.5-10.1); Carbon Dioxide 24.8 mMol/L (20.0-31.0); Chloride 106 mMol/L (98-107); Creatinine (Component) 0.7 mg/dL (0.6-1.3); Estimated Creatinine Clearance 147.3 mL/min (>60); Glucose 117 mg/dL (74-106); Osmolality,Calculated 283 (275-295); Phosphorous 3.2 mg/dL (2.4-5.1); Potassium 3.9 mMol/L (3.4-5.1); Sodium 142 mMol/L (136-145); eGFR > 60 See Note
[2025-04-17] VITALS (7 sets, daily range): BP systolic 124–175; BP diastolic 78–108; PULSE 71–89; RESP 18–97; TEMP 36.4–36.9; O2SAT 97–99
[2025-04-17] MEDS: MORPHINE SULF INJ 4 MG/ML VIAL 1 MG IVP ×3 (03:22→12:24)
[2025-04-17 06:33] LABS: Basophils # (Auto) 0.0 Thou/mm3 (0.0-0.2); Basophils % (Auto) 0 % (0-2.5); Eosinophils # (Auto) 0.0 Thou/mm3 (0.0-0.5); Eosinophils % (Auto) 0 % (0-10); Hematocrit 31.3 % (41.0-53.0); Hemoglobin 10.2 g/dL (13.5-16.0); Immature Granulocytes Auto 0.04 Thou/mm3 (0.00-0.00); Lymphocytes # (Auto) 0.6 Thou/mm3 (1.0-4.8); Lymphocytes % (Auto) 8 % (10-50); Mean Corpuscular HGB Conc 32.6 g/dl (31.0-37.0); Mean Corpuscular Hemoglobin 28.9 pg (25.0-35.0); Mean Corpuscular Volume 89 fL (80-100); Monocytes # (Auto) 0.9 Thou/mm3 (0.0-0.8); Monocytes % (Auto) 11 % (0-12); Neutrophils # (Auto) 6.7 Thou/mm3 (1.8-7.7); Neutrophils % (Auto) 81 % (37-80); Nucleated Red Blood Cell # 0.00 Thou/mm3 (0.00-0.00); Nucleated Red Blood Cell % 0 /100 WBC (0); Platelet Count 111 Thou/mm3 (140-440); RDW Standard Deviation 51.0 fL (35.1-43.9); Red Blood Count 3.53 Miln/mm3 (4.50-5.90); White Blood Count 8.3 Thou/mm3 (3.8-10.6)
[2025-04-17 07:02] LABS: Alanine Aminotransferase 102 U/L (10-49); Albumin, Serum 4.1 gm/dL (3.5-5.0); Albumin/Globulin Ratio 1.7 (1.2-2.2); Alkaline Phosphatase 280 U/L (46-116); Anion Gap 9 (7-16); Aspartate Amino Transferase 94 U/L (0-34); BUN/Creatinine Ratio 11 Ratio (12-20); Bilirubin,Total 1.5 mg/dL (0.3-1.2); Blood Urea Nitrogen 9 mg/dL (9-23); Calcium 8.9 mg/dL (8.3-10.6); Calcium (Corrected) 8.9 mg/dL (8.5-10.1); Carbon Dioxide 26.1 mMol/L (20.0-31.0); Chloride 103 mMol/L (98-107); Creatinine (Component) 0.8 mg/dL (0.6-1.3); Estimated Creatinine Clearance 128.9 mL/min (>60); Globulin 2.4 gm/dL (2.3-3.5); Glucose 122 mg/dL (74-106); Magnesium 1.5 mg/dL (1.6-2.6); Osmolality,Calculated 275 (275-295); Phosphorous 3.1 mg/dL (2.4-5.1); Potassium 3.9 mMol/L (3.4-5.1); Sodium 138 mMol/L (136-145); Total Protein 6.5 gm/dL (5.7-8.2); eGFR > 60 See Note
[2025-04-17] MEDS: FOLIC ACID 1 MG TABLET PO (08:17)
[2025-04-17] MEDS: THIAMINE 100 MG TABLET PO (08:17)
[2025-04-17] MEDS: NIFEdipine XL 30 MG TABCR PO (08:17)
[2025-04-17] MEDS: DOCUSATE SOD 100 MG CAPSULE PO (08:17)
[2025-04-17] MEDS: Magnesium Sulfate 4 GM Ivpb 4 GM/50 ML BAG IV (08:26)
--- NOTE | 2025-04-17 09:16 | PD.RESPRO ---
Documentation for date of: 04/17/25 Subjective Subjective Interval history: NAEO. Appendectomy performed by Dr. Blood 04/16. Patient tolerating PO intake. No passing gas or BM since surgery. Advancing diet as tolerated. No PRN benzos required over past 24 hours. Exam Vital Signs Temp Pulse Resp BP Pulse Ox O2 Del Method O2 Flow Rate 97.6 F 71 18 150/97 H 99 Room Air 2 04/17/25 08:00 04/17/25 08:17 04/17/25 08:00 04/17/25 08:17 04/17/25 08:00 04/17/25 08:00 04/16/25 13:05 Narrative Exam General: No acute distress, well nourished, dirt under fingernails and toenails Eye: PERRL, EOMI, normal conjunctiva, no scleral icterus HENT: Normocephalic, atraumatic, normal hearing, dry oral mucosa, poor dentition Neck: Supple, non-tender, no JVD, no lymphadenopathy Lungs: Clear to auscultation bilaterally, non-labored respirations, symmetric chest rise, no use of accessory muscles Heart: Normal S1 and S2, no S3 or S4 appreciated. Normal rate and regular rhythm, no murmurs, rubs gallops, or edema. Peripheral pulses intact bilaterally, capillary refill brisk distally Abdomen: Soft, distended, diffuse TTP, normal bowel sounds. No guarding or rebound tenderness. Musculoskeletal: Normal range of motion and strength, no tenderness or swelling Skin: Skin is warm, dry, no rashes or lesions. Laparoscopic incisions closed, clean, with no drainage Neurologic: Alert, awake and oriented x3. CN II-XII grossly intact. No focal neuro deficits. No signs of meningeal irritation noted. (chronic) b/l toe numbness (dorsal and plantar) that extends to midfoot Psychiatric: Cooperative, appropriate mood and affect CIWA: Nausea/vomitin Tremor: 0 Paroxysmal sweats: 0 Anxiety: 0 Agitation: 0 Tactile disturbance: 0 Auditory disturbance: 0 Visual disturbance: 0 Headache/fullness in head: 0 Orientation/clouding of sensorium: 0 Total: 0 Objective Labs 04/17/25 05:23 04/17/25 05:23 Labs: Laboratory Results - last 24 hr 04/16/25 04/17/25 13:43 05:23 WBC 8.3 D RBC 3.53 L Hgb 10.2 L Hct 31.3 L MCV 89 MCH 28.9 MCHC 32.6 RDW Std Deviation 51.0 H Plt Count 111 L D Neut % (Auto) 81 H Lymph % (Auto) 8 L [place] % (Auto) 11 Eos % (Auto) 0 Baso % (Auto) 0 Neut # (Auto) 6.7 Lymph # (Auto) 0.6 L [place] # (Auto) 0.9 H Eos # (Auto) 0.0 Baso # (Auto) 0.0 Immature Gran # (Auto) 0.04 H Absolute Nucleated RBC 0.00 Immature Gran % 1 H Nucleated RBC % 0 Sodium 142 138 Potassium 3.9 D 3.9 Chloride 106 103 Carbon Dioxide 24.8 26.1 Anion Gap 11 9 BUN 11 9 Creatinine 0.7 0.8 Estim Creat Clear Calc 147.3 128.9 eGFR > 60 > 60 BUN/Creatinine Ratio 16 11 L Glucose 117 H 122 H Calculated Osmolality 283 275 Calcium 8.8 8.9 Corrected Calcium 8.8 8.9 Phosphorus 3.2 3.1 Magnesium 1.5 L Total Bilirubin 1.5 H D AST 94 H ALT 102 H Alkaline Phosphatase 280 H D Total Protein 6.5 Albumin 4.1 4.1 Globulin 2.4 Albumin/Globulin Ratio 1.7 Quality Measures Quality Measures none Assessment & Plan Assessment Current Active Medications: Generic Name Dose Route Start Last Admin Trade Name Freq PRN Reason Stop Dose Admin Acetaminophen 650 mg 04/16/25 01:46 Acetaminophen 325 Mg Tablet PO 05/16/25 01:45 Q6H PRN Fever >100.4 or pain 1-3 Hydrocodone Bitart/Acetaminophen 1 tab 04/16/25 01:46 Hydrocodone/Apap 5/325 Tablet PO 04/21/25 01:45 Q4HR PRN PAIN SCALE 4-6 (Moderate Albuterol/Ipratropium 3 ml 04/16/25 11:52 Albuterol/Ipratropium (Duoneb) Rt Nisha 3 Ml Nebu INH 05/16/25 11:51 Q4HRRT PRN SHORTNESS OF BREATH Chlordiazepoxide HCl 50 mg 04/16/25 14:00 04/17/25 06:14 Chlordiazepoxide Hcl 25 Mg Capsule PO 04/21/25 13:59 50 mg Q8HR ROYER Administration Docusate Sodium 100 mg 04/16/25 09:00 04/17/25 08:17 Docusate Sod 100 Mg Capsule PO 05/16/25 08:59 100 mg QDAY ROYER Administration Protocol Folic Acid 1 mg 04/16/25 09:00 04/17/25 08:17 Folic Acid 1 Mg Tablet PO 04/21/25 08:59 1 mg BID ROYER Administration Magnesium Sulfate 4 gm in 50 mls @ 12.5 mls/hr 04/17/25 08:08 04/17/25 08:26 Magnesium Sulfate Ivpb IV 04/17/25 12:07 12.5 mls/hr X1 ONE Administration Lorazepam 0.5 mg 04/16/25 08:22 Lorazepam 0.5 Mg Tablet PO 04/21/25 08:21 Q4H PRN CIWA 2-6 Morphine Sulfate 1 mg 04/16/25 01:46 04/17/25 08:16 Morphine Sulf Inj 4 Mg/Ml Vial IVP 04/21/25 01:45 1 mg Q4HR PRN Administration PAIN SCALE 7-10 (Severe Nifedipine 30 mg 04/16/25 09:00 04/17/25 08:17 Nifedipine Xl 30 Mg Tabcr PO 05/16/25 08:59 30 mg QDAY ROYER Administration Ondansetron HCl 4 mg 04/16/25 01:46 Ondansetron Inj 2 Mg/Ml Inj 2 Ml IVP 05/16/25 01:45 Q6H PRN NAUSEA OR VOMITING Protocol Pantoprazole Sodium 40 mg 04/16/25 09:00 04/17/25 08:17 Pantoprazole Inj 40 Mg Vial IVP 05/16/25 08:59 40 mg QDAY ROYER Administration Thiamine HCl 100 mg 04/16/25 09:00 04/17/25 08:17 Thiamine 100 Mg Tablet PO 04/21/25 08:59 100 mg BID ROYER Administration Plan Mr. Goddard is a 50-year-old gentleman with poorly controlled HTN, polysubstance use disorder (EtOH, methamphetamine, opiates) with multiple prior similar presentations to the emergency department and admissions for RLQ pain, appendicitis previously managed with antibiotoics though patient noncompliant with medications. EtOH 284.1, UDS + meth, opiates. Admitted for acute appendicitis. #Appendicitis w/o perforation s/p appendectomy Multiple previous ED visits for appendicitis, refused surgery, managed with antibiotics, though patient noncompliant with medications Initial presentation: RLQ pain, +Mcburney point, +Nils sign, N/V CT a/p: cirrhosis vs primary hepatocellular disease; acute appendicitis; cholelithiassis; atrophic left kidney with scarring Appendectomy performed by Dr. Blood 04/16 without complications Tolerating advancing diet Plan: - Dr. Blood consulted, appreciate recs - Advancing diet as tolerated - Ceftriaxone 2 g IV daily (03/15-) - Flagyl 500 mg IV every 8 hours (03/15-) - Pain management: Tylenol PO PRN, [place] 5 mg q4h PRN, morphine 1 mg IV q4h PRN - Pending Bcx - NGTD at 24 hours - Pending gas/BM to d/c #Hypertensive Urgency #Hx Hypertension #Noncompliance with medications Previously prescribed 3 antihypertensives that he does not take at home Not needing PRN antihypertensives Plan: - Nifedipine 30mg PO QD - goal BP, avoid dropping bp >15%, goal sbp~160s #Cirrhosis #Cholelithiasis #Chronic Transaminitis #Thrombocytopenia On admit: AST 183, ALT 153 ALP 369 appears to be baseline. T. Bili:0.8 PLT 119 --> 84, coag panel wnl GB ultrasound: thickened gallbladder wall CBD 0.6cm CT a/p: cirrhosis vs primary hepatocellular disease, cholelithiasis HIDA 03/02: Cystic duct obstruction pattern Gallbladder visualized during surgery - did not appear to be distended, without evidence of inflammation Plan: - CTM for RUQ pain, daily CMP - f/u outpatient for future elective cholecystectomy #Polysubstance use disorder (methamphetamine, EtOH, opioids) #EtOH withdrawal Drinks 18 beers/day EtOH 284.1, UDS + meth, opiates Plan: - CIWA: - Aitvan 0.5 mg PO q4h CIWA 2-6 - Midazolam 2 mg IV q2h CIWA7-11 - Midazolam 4 mg IV q2h CIWA 12-20 - Librium 50 mg PO q8h #Electrolyte disturbances #Hypokalemia - resolved #Hypernatremia - resolved suspect 2/2 gi losses and poor po intake. Given K 100 mEq Given 2L IV fluids in ED Plan: - CTM with daily CMP Checklist Dispo: Pending appendectomy Lines: PIV Diet: Advancing diet to regular Bowel Reg: Docusate PO daily VTE ppx: SCD given low plt GI ppx: pantoprazole 40 mg IV dialy Pain mgmt: Tylenol PO PRN, [place] 5 mg q4h PRN, morphine 1 mg IV q4h PRN Code status: full Plan discussed with Dr. Karena Del Cid and Dr. Dina De La Cruz MD PGY1
--- NOTE | 2025-04-17 10:30 | PD.SURPROG ---
Documentation for date of: 04/17/25 Subjective Subjective Narrative: Patient was seen and examined. He is resting comfortably, he has some incisional tenderness Exam Vital Signs Temp Pulse Resp BP Pulse Ox O2 Del Method O2 Flow Rate 97.6 F 71 18 150/97 H 99 Room Air 2 04/17/25 08:00 04/17/25 08:17 04/17/25 08:00 04/17/25 08:17 04/17/25 08:00 04/17/25 08:00 04/16/25 13:05 Constitutional Constitutional: no acute distress Routine Abdominal Exam Abdominal: Present soft, normoactive bowel sounds and tenderness (Left lower quadrant incisional tenderness incisions are clean, dry and intact); Absent distended Assessment & Plan Assessment Additional comments: Postop day #1 status post laparoscopic appendectomy Plan Advance to regular diet. Discharge home after lunch PROCEDURES: Procedures Laparoscopic appendectomy
--- NOTE | 2025-04-17 11:05 | ESDS_ITS ---
<Statement entered by Elisabet Arroyo DO - 04/18/25 07:23> I, Elisabet Arroyo DO, attest that I was physically present for the shipley portions of the service and evaluated the patient with the resident and I reviewed and discussed the case with the resident and agree with the resident's findings and plans of care as documented above Planned Discharge Date 04/17/25 DS: Providers Provider Date of admission: 04/16/25 01:46 Primary care physician: Jacinto Diaz MD Admitting Provider: Tony Moore MD Attending Provider on Admission: Tony Moore MD Consults: 04/16/25 04:11 Referral Registered Dietitian Routine Comment: 04/16/25 09:46 Consult to General Surgery Stat Comment: Consulting Provider: Moose Blood Attending Provider on DC: Chelsea De La Cruz MD Discharging Provider: Chelsea De La Cruz MD DS: Diagnosis Problem List Completed Was Problem List Reviewed/Reconciled?: Yes Hospital Course Hospital Course Hospital course: Hospital Course Mr. Goddard is a 50-year-old gentleman with poorly controlled HTN, cirrhosis, cholelithiasis, polysubstance use disorder (EtOH, methamphetamine, opiates) who presented to the ED on 04/16 with worsening RLQ abdominal pain, nausea, and vomiting. EtOH 284.1, UDS + meth, opiates. Admitted for acute appendicitis. Patient was previously seen in the ED for acute appendicitis but refused surgery at that time, managed with antibiotics, though patient was noncompliant with taking this medication. During this hospitalization, patient was amenable to appendectomy. Dr. Blood performed appendectomy of hyperemic appendix without perforation. Patient tolerated advancing PO diet and successfully passed gas. Patient stable and medically cleared for discharge. Diagnoses #Acute Appendicitis w/o perforation s/p appendectomy #Hypertensive Urgency #Hx Hypertension #Noncompliance with medications #Cirrhosis #Cholelithiasis #Chronic Transaminitis #Thrombocytopenia #Polysubstance use disorder (methamphetamine, EtOH, opioids) #EtOH withdrawal #Electrolyte disturbances #Hypokalemia - resolved #Hypernatremia - resolved Discharge Instructions - Follow up with PCP within 1 week of discharge, if you do not have a primary care physician you can come see us at the [facility] by calling [phone] - Follow up with surgery outpatient for elective cholecystectomy if right upper abdominal pain worsens - Abstain for fatty foods and alcohol - Continue rest of medications as previously prescribed - Return to the ED or call EMS if symptoms return and/or worsen Chelsea De La Cruz MD PGY1 Time Spent with Patient Time attestation: Total time spent providing and/or coordinating discharge services: Time spent: Greater than 30 minutes Exam Vital Signs Temp Pulse Resp BP Pulse Ox O2 Del Method O2 Flow Rate 97.6 F 71 18 150/97 H 99 Room Air 2 04/17/25 08:00 04/17/25 08:17 04/17/25 08:00 04/17/25 08:17 04/17/25 08:00 04/17/25 08:00 04/16/25 13:05 Narrative Exam General: No acute distress, well nourished, dirt under fingernails and toenails Eye: PERRL, EOMI, normal conjunctiva, no scleral icterus HENT: Normocephalic, atraumatic, normal hearing, dry oral mucosa, poor dentition Neck: Supple, non-tender, no JVD, no lymphadenopathy Lungs: Clear to auscultation bilaterally, non-labored respirations, symmetric chest rise, no use of accessory muscles Heart: Normal S1 and S2, no S3 or S4 appreciated. Normal rate and regular rhythm, no murmurs, rubs gallops, or edema. Peripheral pulses intact bilaterall y, capillary refill brisk distally Abdomen: Soft, distended, diffuse TTP, normal bowel sounds. No guarding or rebound tenderness. Musculoskeletal: Normal range of motion and strength, no tenderness or swelling Skin: Skin is warm, dry, no rashes or lesions. Laparoscopic incisions closed, clean, with no drainage Neurologic: Alert, awake and oriented x3. CN II-XII grossly intact. No focal neuro deficits. No signs of meningeal irritation noted. (chronic) b/l toe numbness (dorsal and plantar) that extends to midfoot Psychiatric: Cooperative, appropriate mood and affect CIWA: Nausea/vomitin Tremor: 0 Paroxysmal sweats: 0 Anxiety: 0 Agitation: 0 Tactile disturbance: 0 Auditory disturbance: 0 Visual disturbance: 0 Headache/fullness in head: 0 Orientation/clouding of sensorium: 0 Total: 0 Discharge Plan Plan Patient Disposition: HOME (Self Care) Patient condition on transfer: Stable Care Plan Goals: - Follow up with PCP within 1 week of discharge, if you do not have a primary care physician you can come see us at the [facility] by calling [phone] - Follow up with surgery outpatient for elective cholecystectomy if right upper abdominal pain worsens - Abstain for fatty foods and alcohol - Continue rest of medications as previously prescribed - Return to the ED or call EMS if symptoms return and/or worsen Prescriptions/Referrals Prescriptions/Med Rec: New folic acid 1 mg Tablet 1 mg PO BID 30 Days Qty: 60 0RF hydrocodone-acetaminophen 5-325 mg Tablet 1 tab PO Q6HR MDD 4 PRN (Reason: Pain Scale 4-6 (Moderate) 3 Days Qty: 15 0RF Continued amlodipine 5 mg tablet 5 mg PO QDAY MDD 1 Qty: 30 0RF metoclopramide HCl 10 mg tablet 10 mg PO Q6H PRN (Reason: nausea and vomiting) Patient Comments: TAKE 1 TABLET BY MOUTH EVERY 6 HOURS NEEDED FOR NAUSEA AND VOMITING. MAX DAILY DOSE: 4 cetirizine 10 mg tablet 10 mg PO DAILY PRN (Reason: congestion) Patient Comments: TAKE 1 TABLET NEEDED FOR CONGESTION ORALLY ONCE A DAY benzonatate 200 mg capsule 200 mg PO TID PRN (Reason: cough) Patient Comments: TAKE 1 CAPSULE BY MOUTH THREE TIMES A DAY NEEDED FOR COUGH ipratropium bromide 42 mcg (0.06 %) spray,non-aerosol 2 spray INTRANASAL Q6HR PRN (Reason: allergy symptoms) Patient Comments: SPRAY 2 SPRAYS INTO EACH NOSTRIL 3 TIMES A DAY thiamine HCl (vitamin B1) 100 mg capsule 100 mg PO QDAY Qty: 30 0RF multivitamin Tablet 1 tab PO QDAY Qty: 30 0RF baclofen 10 mg tablet 10 mg PO Q8H PRN (Reason: muscle spasm) albuterol sulfate 90 mcg/actuation HFA aerosol inhaler 1 inh INHALATION BID PRN (Reason: bronchospasm) Patient Comments: INHALE 2 PUFF INHALED EVERY 6 HOURS NEEDED FOR COUGH tamsulosin 0.4 mg Capsule 0.4 mg PO QDAY Qty: 30 0RF pantoprazole [Protonix] 40 mg tablet,delayed release (DR/EC) 40 mg PO QDAY Qty: 30 0RF Discontinued ibuprofen 800 mg tablet 800 mg PO TID PRN (Reason: pain) Qty: 30 0RF Referrals: Jacinto Diaz MD [Primary Care Provider, [facility]] Patient/Caregiver Discharge Instructions Discharge Activity: activity as tolerated Education Materials: Preventing Surgical Site Infections Print Language: Indonesian Activity Restrictions/Additional Instructions: May shower in 24 hours. Avoid lifting, straining, pulling or pushing for 4 weeks. May take over the counter laxatives if no bowel movement in 2 days. Follow up with Dr. Blood in 2 weeks, call [phone] for an appointment. Stand Alone Forms: Mayuri Award Info., Patient Portal Info Letter, Work/Release Restrictions Discharge Order Discharge Orders: Discharge (Routine); Ordered 04/17/25 Ordered By: Elisabet Arroyo Quality Discharge Quality Measures VTE prophylaxis
[2025-04-17] MEDS: HYDROcodone/APAP 5/325 TABLET 1 TAB PO (13:43)
== END 2025-04-17 15:58 | disposition home or self-care (01) ==
LOC: SERX 04-16 00:10 → S3SX 04-16 06:26 → SERHOLD 04-16 14:24 → S3SX 04-16 14:25
PROVIDERS: Surgery; Admitting Provider Internal Medicine; Emergency Provider Emergency Medicine; PCP Family Medicine; Visit Provider Internal Medicine
PROC: 0DTJ4ZZ Resection of Appendix, Percutaneous Endoscopic Approach (ICD-10-PCS; CPT 44970; principal; 2025-04-16 12:30)
DX: K36 Other appendicitis (principal); I10 Essential (primary) hypertension; F10.139 Alcohol abuse with withdrawal, unspecified; F15.129 Other stimulant abuse with intoxication, unspecified; I16.0 Hypertensive urgency; E87.0 Hyperosmolality and hypernatremia; E87.6 Hypokalemia; K74.60 Unspecified cirrhosis of liver; D69.6 Thrombocytopenia, unspecified; N26.1 Atrophy of kidney (terminal); Y90.8 Blood alcohol level of 240 mg/100 ml or more
CPT/HCPCS: 44970; 36415; 74177; 76705; 80053; 80069; 80307; 80320; 81001; 83690; 83735; 84100; 85025; 87040; 87081; 96361; 96365; 96366; 96374; 96375; 99284; A4217; A4314; A4649; G0378; J0694; J0696; J2250; J2270; J2405; J2470; J2704; J3010; J3475; J3480; J3490; J7120; Q9967; A9270; G0480; J1836

== ENCOUNTER 2025-04-20 19:01 | Emergency (ER) | payer MEDICAID, SELFPAY ==
[2025-04-20] VITALS (11 sets, daily range): BP systolic 138–178; BP diastolic 81–105; PULSE 79–87; RESP 12–22; TEMP 36.6–37; O2SAT 95–99; BMI 30.3
--- NOTE | 2025-04-20 19:15 | EDNOTE_ITS ---
ED Abdominal Pain RME/HPI General Chief Complaint: Skin/Abscess/Foreign Body Stated complaint: ABD PAIN Time seen by provider: 04/20/25 19:19 Arrival date/time: 04/20/25 19:01 RME / HPI RME / HPI narrative: Dr. Arriaga?[facility] Main ED Evaluation: 50yo male who had a laparoscopic appendectomy 4 days [employer] now presents with progressively worsening swelling and redness at the LLQ puncture site. No fever, chills, lightheadedness, dizziness, or fatigue. Patient has increasing pain with ambulation and movement of the torso. Related Data Home Medications ?Medication ?Instructions ?Recorded ?Confirmed albuterol sulfate 90 mcg/actuation 1 inh inhalation BI D PRN 12/26/24 04/16/25 aerosol inhaler bronchospasm baclofen 10 mg tablet 10 mg PO Q8H PRN muscle spas m 12/26/24 04/16/25 benzonatate 200 mg capsule 200 mg PO TID PRN cough 11/0304/16/25 cetirizine 10 mg tablet 10 mg PO DAILY PRN congestio n 04/16/25 04/16/25 ipratropium bromide 42 mcg (0.06 2 spray intranasal Q6 HR PRN 04/16/25 04/16/25 %) nasal spray allergy symptoms metoclopramide HCl 10 mg tablet 10 mg PO Q6H PRN nause a and 04/16/25 04/16/25 vomiting Previous Rx's ?Medication ?Instructions ?Recorded multivitamin 1 tab PO QDAY #30 tabs 11/17 thiamine HCl (vitamin B1) 100 mg 100 mg PO QDAY #30 ca ps 11/17/24 capsule amlodipine 5 mg tablet 5 mg PO QDAY hypertension #3 0 tabs 12/17/24 tamsulosin 0.4 mg capsule 0.4 mg PO QDAY #30 caps 12/11 0 pantoprazole 40 mg tablet,delayed 40 mg PO QDAY #30 ta bs 02/01/25 release (Protonix) folic acid 1 mg tablet 1 mg PO BID 30 days #60 tabs 04/17/25 clindamycin HCl 300 mg capsule 300 mg PO TID 7 days #2 1 caps 04/20/25 (Cleocin HCl) hydrocodone 5 mg-acetaminophen 325 1 tab PO Q8H PRN pa in #20 tabs 04/20/25 mg tablet Allergies Allergy/AdvReac Type Severity Reaction Status Date / Time No Known Allergies Allergy Verified 04/20/25 19:24 Review of Systems Review of Systems Systems Reviewed: All systems reviewed, normal except as documented ED Exam Narrative Physical exam: GENERAL APPEARANCE: alert and oriented x 4, nontoxic, complains of LLQ pain, no acute distress VITALS: All vitals were reviewed and the pulse ox is 97% on room air, which is normal according to my interpretation. HEENT: Normocephalic, atraumatic; pupils equal, round, reactive to light; EOMI; mucous membranes pink, moist; oropharynx clear NECK: Supple LUNGS: CTABL; no wheezes, no rales, no rhonchi HEART: Regular rate, regular rhythm; normal S1, S2; no murmurs ABDOMEN: non distended; soft, 4 puncture sites noted; puncture site at the LLQ is erythematous with induration extending towards the midline with exquisite tenderness to palpation, no fluctuance EXTREMITIES: atraumatic; no edema NEUROLOGIC: awake; alert and oriented x4; cranial nerves II-XII grossly intact; no focal sensory or motor deficits PSYCHIATRIC: appropriate mood and affect SKIN: warm, dry, normal color; no rashes Course Quality Measures none Orders Category Date Time Status CBC [CBC] Stat Lab 04/20/25 19:46 Completed CMP [Comprehensive Metabolic Panel] Stat Lab 04/20/25 19:46 Completed Lactic Acid [Lactate (Lactic Acid)] Stat Lab 04/20/25 19:46 Completed Urinalysis, C/S if Indicated Stat Lab 04/20/25 20:40 Completed Morphine* Inj Med 04/20/25 19:24 Discontinued 4 mg IVP X1 ONE Piper/Tazo 3.375 gm Premix [Zosyn] Med 04/20/25 19:23 Discontinued 3.375 gm in 50 ml IV X1 Prochlorperazine Inj [Compazine Inj] Med 04/20/25 19:24 Discontinued 10 mg IV X1 ONE Sodium Chloride 0.9% 1000 ml [Ns] 1,000 ml Med 04/20/25 19:21 Discontinued IV 999 mls/hr Vancomycin Inj Med 04/20/25 21:18 Discontinued 1,000 mg .ROUTE .STK-MED ONE Vancomycin Inj 1,500 mg Med 04/20/25 19:23 Discontinued Sodium Chloride 0.9% 250 ml [Ns] 500 ml IV X1 Vital Signs Vital signs: Vital Signs Temperature 98.1 F 04/20/25 19:09 Pulse Rate 87 04/20/25 19:09 Respiratory Rate 18 04/20/25 19:09 Blood Pressure 151/90 H 04/20/25 19:09 Pulse Oximetry (%) 97 04/20/25 19:09 Oxygen Delivery Method Room Air 04/20/25 19:09 Abdominal Pain [facility] Narrative [facility] Narrative:: Scribe Attestation: 04/20/25 - Kelly Muñoz am scribing for and in the presence of Dr. Arriaga. 50yo male who had a laparoscopic appendectomy 4 days [employer] now presents with progressively worsening swelling and redness at the LLQ puncture site. No fever, chills, lightheadedness, dizziness, or fatigue. Please see PE findings. Labs demonstrated normal WBC count, stable Hgb, no thrombocytopenia, no left shift or bandemia. Chemistries with evidence of dehydration with Na 149 and Cl 112, normal renal function, LFTs mildly elevated. UA without evidence of infection. Patient placed on alarm security or surveillance monitor, received IV fluids, and was treated with empiric antibiotics for suspected postoperative wound cellulitis. On serial re- evaluation, intensity of erythema has diminished and patient reports overall subjective improvement. Patient is considered stable for discharge home. Will send him a prescription for clindamycin and hydrocodone, as patient will be instructed to continue motrin as previously prescribed, apply warm compresses, and follow-up with PMD. Precaution instructions issued. Patient data External records reviewed:: [facility] previous records (Per chart review, patient was admitted here on 04/15/25 for appendicitis.) and EMS form Clinical information provided by:: patient Social determinants that could affect healthcare access:: substance use Patient has the following chronic illnesses:: HTN How is presenting disease/condition affected by chronic disease/condition?: uneffected by Evaluation data The following diagnostics were reviewed and interpreted by me:: lab results Lab and/or radiology exams considered but not ordered:: none Interpretation Summary: See [facility] Medications / Prescriptions Medications or Prescriptions considered but not ordered:: none Medication administrations:: Medication Administration History Discontinued Medications Sodium Chloride (Ns) 1,000 mls @ 999 mls/hr IV .Q1H1M ONE Stop: 04/20/25 20:21 Last Infusion: 04/20/25 21:39 Dose: Infused Documented By: Admin: 04/20/25 20:36 Dose: 999 mls/hr Documented By: MATEO Piperacillin/Tazobactam/Dextrose (Zosyn) 3.375 gm in 50 mls @ 100 mls/hr IV X1 ONE; Protocol Stop: 04/20/25 19:52 Last Infusion: 04/20/25 20:25 Dose: Infused Documented By: Admin: 04/20/25 20:25 Dose: 100 mls/hr Documented By: MATEO Comments: IV R FA Vancomycin HCl 1,500 mg/ (Sodium Chloride) 500 mls @ 300 mls/hr IV X1 ONE Stop: 04/20/25 21:02 Last Admin: 04/20/25 21:23 Dose: 300 mls/hr Documented By: MATEO Morphine Sulfate (Morphine Sulf Inj 4 Mg/Ml Vial) 4 mg IVP X1 ONE Stop: 04/20/25 19:25 Last Admin: 04/20/25 20:33 Dose: 4 mg Documented By: MATEO Prochlorperazine Edisylate (Prochlorperazine Inj 5 Mg/Ml Vial 2 Ml) 10 mg IV X1 ONE; Protocol Stop: 04/20/25 19:25 Last Admin: 04/20/25 20:33 Dose: 10 mg Documented By: MATEO Comments: R FA 2 min Vancomycin HCl (Vancomycin Inj 1,000 Mg Vial) Confirm Administered Dose 1,000 mg .ROUTE .STK-MED ONE Stop: 04/20/25 21:19 Last Admin: 04/20/25 21:59 Dose: Not Given Documented By: MATEO Non-Admin Reason: Discontinued see above Consultations Consultation(s) initiated? (list below): No Diagnosis Differential diagnosis abdominal pain: other (cellulitis, infection, postop pain) Most likely diagnosis given after review of the tests above:: see clinical impression below Admission Indicated Admission indicated?: not indicated Admission Request Was there a request for admission?: No Disposition Plan Disposition Plan: Discharge Discharge Attestation Discharge Attestation: The patient and all family members were given an opportunity to ask questions and understood the discharge instructions. Discharge instructions specifically effects, indications for sooner follow up or return to the emergency department, and the expected course of current diagnosis. Patient condition: Stable Discharge Plan Plan Patient Disposition: HOME (Self Care) Prescriptions/Referrals Prescriptions/Med Rec: New clindamycin HCl [Cleocin HCl] 300 mg capsule 300 mg PO TID 7 Days Qty: 21 0RF hydrocodone-acetaminophen 5-325 mg tablet 1 tab PO Q8H MDD 3 tab PRN (Reason: pain) Qty: 20 0RF No Action amlodipine 5 mg tablet 5 mg PO QDAY MDD 1 Qty: 30 0RF metoclopramide HCl 10 mg tablet 10 mg PO Q6H PRN (Reason: nausea and vomiting) Patient Comments: TAKE 1 TABLET BY MOUTH EVERY 6 HOURS NEEDED FOR NAUSEA AND VOMITING. MAX DAILY DOSE: 4 cetirizine 10 mg tablet 10 mg PO DAILY PRN (Reason: congestion) Patient Comments: TAKE 1 TABLET NEEDED FOR CONGESTION ORALLY ONCE A DAY benzonatate 200 mg capsule 200 mg PO TID PRN (Reason: cough) Patient Comments: TAKE 1 CAPSULE BY MOUTH THREE TIMES A DAY NEEDED FOR COUGH ipratropium bromide 42 mcg (0.06 %) spray,non-aerosol 2 spray INTRANASAL Q6HR PRN (Reason: allergy symptoms) Patient Comments: SPRAY 2 SPRAYS INTO EACH NOSTRIL 3 TIMES A DAY folic acid 1 mg Tablet 1 mg PO BID 30 Days Qty: 60 0RF thiamine HCl (vitamin B1) 100 mg capsule 100 mg PO QDAY Qty: 30 0RF multivitamin Tablet 1 tab PO QDAY Qty: 30 0RF baclofen 10 mg tablet 10 mg PO Q8H PRN (Reason: muscle spasm) albuterol sulfate 90 mcg/actuation HFA aerosol inhaler 1 inh INHALATION BID PRN (Reason: bronchospasm) Patient Comments: INHALE 2 PUFF INHALED EVERY 6 HOURS NEEDED FOR COUGH tamsulosin 0.4 mg Capsule 0.4 mg PO QDAY Qty: 30 0RF pantoprazole [Protonix] 40 mg tablet,delayed release (DR/EC) 40 mg PO QDAY Qty: 30 0RF Referrals: Jacinto Diaz MD [Primary Care Provider, Family Practice] - In 1 week Problem List Clinical Impression: Postoperative wound infection Impression comment: Postoperative wound infection Patient/Caregiver Discharge Instructions Discharge Activity: activity as tolerated Education Materials: ED Post Op Wound Check, Infection Additional Instructions: Medications as directed. Continue Motrin as previously prescribed and apply warm compresses 3 times daily for approximate 30 minutes. Follow-up with general surgery as anticipated and return if worsening Print Language: Czech Stand Alone Forms: Mayuri Award Info., Patient Portal Info Letter
[2025-04-20 20:05] LABS: Lactate (Lactic Acid) 1.5 mMol/L (0.4-2.0)
[2025-04-20 20:06] LABS: Basophils # (Auto) 0.1 Thou/mm3 (0.0-0.2); Basophils % (Auto) 1 % (0-2.5); Eosinophils # (Auto) 0.2 Thou/mm3 (0.0-0.5); Eosinophils % (Auto) 3 % (0-10); Hematocrit 35.2 % (41.0-53.0); Hemoglobin 11.2 g/dL (13.5-16.0); Immature Granulocytes Auto 0.03 Thou/mm3 (0.00-0.00); Lymphocytes # (Auto) 0.8 Thou/mm3 (1.0-4.8); Lymphocytes % (Auto) 12 % (10-50); Mean Corpuscular HGB Conc 31.8 g/dl (31.0-37.0); Mean Corpuscular Hemoglobin 28.9 pg (25.0-35.0); Mean Corpuscular Volume 91 fL (80-100); Monocytes # (Auto) 0.5 Thou/mm3 (0.0-0.8); Monocytes % (Auto) 8 % (0-12); Neutrophils # (Auto) 5.3 Thou/mm3 (1.8-7.7); Neutrophils % (Auto) 77 % (37-80); Nucleated Red Blood Cell # 0.00 Thou/mm3 (0.00-0.00); Nucleated Red Blood Cell % 0 /100 WBC (0); Platelet Count 187 Thou/mm3 (140-440); RDW Standard Deviation 52.1 fL (35.1-43.9); Red Blood Count 3.88 Miln/mm3 (4.50-5.90); White Blood Count 6.8 Thou/mm3 (3.8-10.6)
[2025-04-20] MEDS: PIPER/TAZO 3.375 GM PREMIX 3.375 GM/50 ML BAG IV (20:25)
[2025-04-20] MEDS: PROCHLORPERAZINE INJ 5 MG/ML VIAL 2 ML 10 MG IV (20:33)
[2025-04-20] MEDS: MORPHINE SULF INJ 4 MG/ML VIAL IVP (20:33)
[2025-04-20] MEDS: SODIUM CHLORIDE 0.9% 1000 ML 1,000 ML 999 ML IV (20:36)
[2025-04-20 20:50] LABS: Alanine Aminotransferase 100 U/L (10-49); Albumin, Serum 4.6 gm/dL (3.5-5.0); Albumin/Globulin Ratio 1.6 (1.2-2.2); Alkaline Phosphatase 403 U/L (46-116); Anion Gap 14 (7-16); Aspartate Amino Transferase 132 U/L (0-34); BUN/Creatinine Ratio 9 Ratio (12-20); Bilirubin,Total 0.7 mg/dL (0.3-1.2); Blood Urea Nitrogen 7 mg/dL (9-23); Calcium 9.2 mg/dL (8.3-10.6); Calcium (Corrected) 9.2 mg/dL (8.5-10.1); Carbon Dioxide 23.5 mMol/L (20.0-31.0); Chloride 112 mMol/L (98-107); Creatinine (Component) 0.8 mg/dL (0.6-1.3); Estimated Creatinine Clearance 137.0 mL/min (>60); Globulin 2.9 gm/dL (2.3-3.5); Glucose 91 mg/dL (74-106); Osmolality,Calculated 294 (275-295); Potassium 3.4 mMol/L (3.4-5.1); Sodium 149 mMol/L (136-145); Total Protein 7.5 gm/dL (5.7-8.2); eGFR > 60 See Note
[2025-04-20 21:06] LABS: Collection Type, Urine Clean Catch; Squamous Epithelial Cell,Urine 0 /hpf (0-5)
[2025-04-20 21:29] LABS: Bilirubin,Urine Negative (Negative); Blood,Urine Negative (Negative); Clarity,Urine Clear (Clear/Hazy); Color,Urine Yellow (Lt Yel-Yel); Culture Indicated,Urine Not Indicated; Glucose, Urine Negative (Negative); Hyaline Casts,Urine < 1 /hpf (0-1); Ketones,Urine Negative (Negative); Leukocyte Esterase,Urine Negative (Negative); Nitrite,Urine Negative (Negative); PH,Urine 6.0 (5.0-7.0); Protein,Urine Trace (Neg - Trace); RBC,Urine 3 /hpf (0-3); Specific Gravity,Urine 1.022 (1.001-1.035); Urobilinogen,Urine Negative mg/dL (0.0-1.0); WBC,Urine < 1 /hpf (0-5)
== END 2025-04-20 23:31 | disposition home or self-care (01) ==
PROVIDERS: Emergency Provider Emergency Medicine; PCP Family Medicine
DX: L02.211 Cutaneous abscess of abdominal wall (principal)
CPT/HCPCS: 36415; 80053; 81001; 83605; 85025; 96361; 96365; 96366; 96375; 99283; J0780; J2270; J2543; J3373; J7030; J7050

== ENCOUNTER 2025-05-17 20:24 | Emergency (ER) | payer MEDICAID, SELFPAY ==
[2025-05-17 20:25] VITALS: BMI 30.3
--- NOTE | 2025-05-17 20:31 | XR_ITS ---
Examination: CT brain head without contrast. 2-D sagittal coronal reconstructions Date and time of exam: May 17, 2025, 2113 hours INDICATIONS: High blood pressure with headache today CTDI: vol (mGy): 55.6 DLP: (mGycm): 1172 Technique: Multiple CT axial sections of the brain have been obtained, 5 mm slice thickness. Contrast has not been administered. 2-D sagittal, coronal reconstructions have been obtained Low dose protocols were performed. One or more of the following dose reduction techniques were used; automated exposure control, adjustment of the mA and/or KV according to patient size, use of iterative reconstruction technique. Findings: No significant ventricular enlargement. Intra-axial or extra-axial hemorrhage density is not seen. No mass effect or midline shift Basal cisterns are not remarkable. Fourth ventricle is midline. Cranial vault intact. Impression: Negative for acute hemorrhage, mass effect or midline shift
--- NOTE | 2025-05-17 20:31 | EKG_ITS ---
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
--- NOTE | 2025-05-17 20:32 | EDRME_ITS ---
Rapid Medical Screening Exam RME Arrival date/time: 05/17/25 20:24 This is a case of 50-year-old male with history of hypertension came in in the emergency room due to high blood pressure and headache today worsening of the symptoms this patient decided to start consulted in the emergency room Chief Complaint: General Adult/Misc Complain Time Seen by Provider: 05/17/25 20:31 Exam: Patient is awake alert oriented not in distress nontoxic looking well-hydrated w ell-nourished normal rate regular rhythm no murmur Clinical Impression: Headache HTN
[2025-05-17 20:34] VITALS: BP 175/103; PULSE 112; RESP 20; TEMP 36.9; O2SAT 95
[2025-05-17 20:59] LABS: Basophils # (Auto) 0.0 Thou/mm3 (0.0-0.2); Basophils % (Auto) 1 % (0-2.5); Eosinophils # (Auto) 0.2 Thou/mm3 (0.0-0.5); Eosinophils % (Auto) 2 % (0-10); Hematocrit 37.2 % (41.0-53.0); Hemoglobin 11.5 g/dL (13.5-16.0); Immature Granulocytes Auto 0.02 Thou/mm3 (0.00-0.00); Lymphocytes # (Auto) 0.8 Thou/mm3 (1.0-4.8); Lymphocytes % (Auto) 11 % (10-50); Mean Corpuscular HGB Conc 30.9 g/dl (31.0-37.0); Mean Corpuscular Hemoglobin 28.3 pg (25.0-35.0); Mean Corpuscular Volume 91 fL (80-100); Monocytes # (Auto) 0.5 Thou/mm3 (0.0-0.8); Monocytes % (Auto) 7 % (0-12); Neutrophils # (Auto) 5.6 Thou/mm3 (1.8-7.7); Neutrophils % (Auto) 79 % (37-80); Nucleated Red Blood Cell # 0.00 Thou/mm3 (0.00-0.00); Nucleated Red Blood Cell % 0 /100 WBC (0); Platelet Count 148 Thou/mm3 (140-440); RDW Standard Deviation 51.4 fL (35.1-43.9); Red Blood Count 4.07 Miln/mm3 (4.50-5.90); White Blood Count 7.1 Thou/mm3 (3.8-10.6)
--- NOTE | 2025-05-17 21:17 | EDNOTE_ITS ---
ED Headache RME/HPI General Chief Complaint: General Adult/Misc Complain Stated Complaint: HIGH BLOOD PRESSURE Time Seen by Provider: 05/17/25 20:31 Arrival date/time: 05/17/25 20:24 RME / HPI RME / HPI Narrative: 05/17/25 20:24 This is a case of 50-year-old male with history of hypertension came in in the emergency room due to high blood pressure and headache today worsening of the symptoms this patient decided to start consulted in the emergency room DR. SALAZAR MAIN ED EVALUATION: Patient seen by the undersigned on 04/20/2025 for post-operative cellulitis now presenting with elevated blood pressure. Patient reportedly lightheaded and weak upon awakening this morning with mild headache, chest pain, although denies shortness of breath. Patient readily acknowledges alcoholism with most recent use 2 hours [employer]. Denies vomiting, diarrhea, or tremulousness. PMH: TBI, Hypertension, Gall Bladder Disease, Hemorrhoids, Arthritis, Rheumatoid Arthritis, Alcoholism PSH: Recent Laproscopic Appendectomy Allergies: NKDA Social: Daily Drinker, Tobacco use, occasional illicit drug abuse Exam: Patient is awake alert oriented not in distress nontoxic looking well-hydrated well-nourished normal rate regular rhythm no murmur Impression: Headache HTN Related Data Home Medications ?Medication ?Instructions ?Recorded ?Confirmed albuterol sulfate 90 mcg/actuation 1 inh inhalation BI D PRN 12/26/24 04/16/25 aerosol inhaler bronchospasm baclofen 10 mg tablet 10 mg PO Q8H PRN muscle spas m 12/26/24 04/16/25 benzonatate 200 mg capsule 200 mg PO TID PRN cough 11/0304/16/25 cetirizine 10 mg tablet 10 mg PO DAILY PRN congestio n 04/16/25 04/16/25 ipratropium bromide 42 mcg (0.06 2 spray intranasal Q6 HR PRN 04/16/25 04/16/25 %) nasal spray allergy symptoms metoclopramide HCl 10 mg tablet 10 mg PO Q6H PRN nause a and 04/16/25 04/16/25 vomiting Previous Rx's ?Medication ?Instructions ?Recorded multivitamin 1 tab PO QDAY #30 tabs 11/17 thiamine HCl (vitamin B1) 100 mg 100 mg PO QDAY #30 ca ps 11/17/24 capsule amlodipine 5 mg tablet 5 mg PO QDAY hypertension #3 0 tabs 12/17/24 tamsulosin 0.4 mg capsule 0.4 mg PO QDAY #30 caps 12/11 pantoprazole 40 mg tablet,delayed 40 mg PO QDAY #30 ta bs 02/01/25 release (Protonix) hydrocodone 5 mg-acetaminophen 325 1 tab PO Q8H PRN pa in #20 tabs 04/20/25 mg tablet Allergies Allergy/AdvReac Type Severity Reaction Status Date / Time No Known Allergies Allergy Verified 05/17/25 20:25 Review of Systems Review of Systems Systems Reviewed: All systems reviewed, normal except as documented Past Medical History Past Medical History NEUROLOGIC: Positive Traumatic Brain Injury CARDIAC: Positive Hypertension GASTROINTESTINAL: Positive Gall Bladder Disease and Hemorrhoids MUSCULOSKELETAL: Positive Arthritis and Rheumatoid Arthritis Family History FAMILY HISTORY: Positive Family Cardiac Disorders and Family Cancer ED Exam Narrative Physical exam: GEN. APPEARANCE: The patient is alert awake oriented X-3 under no distress, lying down comfortably, does not look ill/toxic. Patient has good eye contact. Patient is cooperative. Notably hypertensive and tachycardic. VITALS: All vitals were reviewed and the pulse ox is 95%, which is normal according to my interpretation HEENT: Normocephalic, atraumatic and nontender. Pupils are equal and reactive. Oral mucosa is moist. NECK: Supple, nontender, no meningismus, no JVD, no bruit. There is no thyromegaly and no lymphadenopathy. CHEST: Nontender on palpation no deformity and no crepitus. CARDIOVASCULAR: Tachycardic, no murmur or gallop rub or extra beats. LUNGS: Clear to auscultation bilaterally with symmetrical chest rise. No laboring tachypnea or wheezing. No intercostal subcostal retraction. No rales and no rhonchi. ABDOMEN: Soft, flat, nontender to palpation, no guarding or rebound tenderness. There are no abnormal masses palpated. No pulsatile masses or bruits. Active and normal bowel sounds. EXTREMITIES: Normal inspection and palpation. No edema. No cyanosis. Patient is able to move all 4 extremities well SKIN: Warm and dry, no rashes noted. MUSCULOSKELETAL: No lumbar or midline bony tenderness. There is no CVA tenderness. No paraspinal muscle spasm or tenderness. NEURO: Cranial nerves II through XII grossly intact. There are no focal neurologic deficits noted. GCS is 15 PSYCHIATRIC: Patient is in normal mood and affect, cooperative. LYMPHATICS: No major lymphadenopathy noted. Course Quality Measures none Orders Category Date Time Status EKG (ED ONLY) *Do not use* NOW Care 05/17/25 20:[address] head/brain wo con Stat Exams 05/17/25 20:31 Completed EKG (ED Only) Stat Exams 05/17/25 20:31 Draft CBC Stat Lab 05/17/25 20:40 Completed Comprehensive Metabolic Panel Stat Lab 05/17/25 20:40 Completed Troponin I Stat Lab 05/17/25 20:40 Completed Urinalysis Stat Lab 05/17/25 21:06 Completed Urinalysis, C/S if Indicated Stat Lab 05/17/25 21:33 Ordered Folic Acid Inj Med 05/17/25 21:33 Discontinued 1 mg IVP X1 ONE Labetalol* IV [Trandate* IV] Med 05/17/25 21:35 Discontinued 10 mg IVP X1 ONE Magnesium Sulfate 2 GM Ivpb [Magnesium Sulfate Ivpb] Med 05/17/25 21:33 Active 2 gm in 50 ml IV X1 Sodium Chloride 0.9% 1000 ml [Ns] 1,000 ml Med 05/17/25 21:34 Discontinued IV 999 mls/hr Thiamine Inj [Vitamin B-1 Inj] Med 05/17/25 21:33 Discontinued 100 mg IVP X1 ONE chlordiazePOXIDE HCl [Librium] Med 05/17/25 23:03 Discontinued 10 mg PO X1 ONE Vital Signs Vital signs: Vital Signs Temperature 98.5 F 05/17/25 20:34 Pulse Rate 112 H 05/17/25 20:34 Respiratory Rate 20 05/17/25 20:34 Blood Pressure 175/103 H 05/17/25 20:34 Pulse Oximetry (%) 95 05/17/25 20:34 Oxygen Delivery Method Room Air 05/17/25 20:34 Headache MDM Narrative MDM Narrative:: Scribe Attestation: Darcy Muñoz am scribing for and in the presence of Dr. Maldonado. Provider Notation: Although this document has been carefully reviewed, there may still be some phonetic and other typographical errors. These errors are purely grammatical due to imperfections in the software program and should not be construed in any way to compromise the substance of the patient's medical care during this visit. Patient seen by the undersigned on 04/20/2025 for post-operative cellulitis now presenting with elevated blood pressure. Patient reportedly lightheaded and weak upon awakening this morning with mild headache, chest pain, although denies sh ortness of breath. Patient readily acknowledges alcoholism with most recent use 2 hours [employer]. Please see PE findings. Laboratory markers, including CBC and serum chemistries, demonstrated WBC of 7.1, stable hemoglobin of 11.5, platelet count of 148, no left shift or associated bandemia. Serum chemistries demonstrated slightly elevated sodium of 146 and normal renal function. LFT's are stable with elevated transaminases and alkaline phosphatase. Patient placed on library monitor, hydrated with normal saline, and treated with combination Thiamine, folic acid, and magnesium to correct nutritional deficit in known alcohol dependent patient. Administered incremental doses of anti-hypertensive therapy with gradual reduction in blood pressure. Patient remained neurologically intact throughout ED course. Bedside detox discussion conducted and patient appears to be motivated and determined to obtain inpatient rehabilitative services. Patient understands that if he were to drink while on detox medication that he may . Initial dose of Librium given in ED. Considered stable for discharge with Lisinopril, HTZ, and Coreg. Close PMD f/u recommended. Precautionary instructions issued. Final diagnoses include accelerated hypertension, noncompliance, and alcohol dependence/withdrawal. Patient data External records reviewed:: [facility] previous records (Reviewed prior ED records from 04/20/25. Patient was seen for Postoperative wound infection.) Clinical information provided by:: patient Social determinants that could affect healthcare access:: alcohol use Patient has the following chronic illnesses:: Hypertension, Gall Bladder Disease, Hemorrhoids, Arthritis, Rheumatoid Arthritis How is presenting disease/condition affected by chronic disease/condition?: exacerbated by Evaluation data The following diagnostics were reviewed and interpreted by me:: lab results, radiology exam(s) and EKG tracing(s) (EKG demonstrates sinus tachycardia with rate of 114 bpm, no acute ST segment changes, no ventricular ectopy, axis leftward, intervals normal, ? LVH, per my interpretation.) Lab and/or radiology exams considered but not ordered:: None Interpretation Summary: RADIOLOGY Head/Brain CT: Findings: No significant ventricular enlargement. Intra-axial or extra-axial hemorrhage density is not seen. No mass effect or midline shift Basal cisterns are not remarkable. Fourth ventricle is midline. Cranial vault intact. Impression: Negative for acute hemorrhage, mass effect or midline shift Medications / Prescriptions Medications or Prescriptions considered but not ordered:: None Medication administrations:: Medication Administration History Magnesium Sulfate (Magnesium Sulfate Ivpb) 2 gm in 50 mls @ 25 mls/hr IV X1 ONE Stop: 05/17/25 23:32 Last Admin: 05/17/25 22:12 Dose: 25 mls/hr Documented By: MATEO Discontinued Medications Chlordiazepoxide HCl (Chlordiazepoxide Hcl 10 Mg Capsule) 10 mg PO X1 ONE Stop: 05/17/25 23:04 Folic Acid (Folic Acid Inj 1 Mg/0.2 Ml) 1 mg IVP X1 ONE Stop: 05/17/25 21:34 Last Admin: 05/17/25 22:13 Dose: 1 mg Documented By: MATEO Sodium Chloride (Ns) 1,000 mls @ 999 mls/hr IV .Q1H1M ONE Stop: 05/17/25 22:34 Last Infusion: 05/17/25 23:19 Dose: Infused Documented By: Admin: 05/17/25 22:13 Dose: 999 mls/hr Documented By: MATEO Labetalol HCl (Labetalol Inj 5 Mg/Ml Vial 4 Ml) 10 mg IVP X1 ONE Stop: 05/17/25 21:36 Last Admin: 05/17/25 22:11 Dose: 10 mg Documented By: MATEO Thiamine HCl (Thiamine Inj 100 Mg/Ml Vial 2 Ml) 100 mg IVP X1 ONE Stop: 05/17/25 21:34 Last Admin: 05/17/25 22:10 Dose: 100 mg Documented By: MATEO See above if any Consultations Consultation(s) initiated? (list below): No Diagnosis Differential diagnosis headache: migraine, tension headache, headache, sinusitis and other (Uncontrolled blood pressure) Most likely diagnosis given after review of the tests above:: Accelerated hypertension, Alcohol withdrawal, Noncompliance with medications, Alcohol dependence Admission Indicated Admission indicated?: not indicated Explain why admission is indicated or not indicated:: Patient does not meet admission criteria Admission Request Was there a request for admission?: No Disposition Plan Disposition Plan: Discharge Discharge Attestation Discharge Attestation: The patient and all family members were given an opportunity to ask questions and understood the discharge instructions. Discharge instructions specifically effects, indications for sooner follow up or return to the emergency department, and the expected course of current diagnosis. Patient condition: Stable Critical Care Time Critical Care Time Critical Care Time: Yes Total Critical Care Time (min.): 40 Attestation: The high probability of sudden, clinically significant deterioration in the patient?s condition required the highest level of my preparedness to intervene urgently. The services I provided to this patient were to treat and/or prevent clinically significant deterioration. Services included the following: chart data review, reviewing nursing notes and/or old charts, documentation time, independent consultant collaboration regarding findings and treatment options, medication orders and management, direct patient care, vital sign assessments and ordering, interpreting and reviewing diagnostic studies and lab tests. Aggregate critical care time includes only time during which I was engaged in work directly related to the patient?s care, as described above, whether at bedside or elsewhere in the Emergency Department. It did not include time spent performing other reported procedures or the services of residents, students, nurses or physician assistants. Discharge Plan Plan Patient Disposition: HOME (Self Care) Discharge Disposition comment: stable Prescriptions/Referrals Prescriptions/Med Rec: No Action amlodipine 5 mg tablet 5 mg PO QDAY MDD 1 Qty: 30 0RF metoclopramide HCl 10 mg tablet 10 mg PO Q6H PRN (Reason: nausea and vomiting) Patient Comments: TAKE 1 TABLET BY MOUTH EVERY 6 HOURS NEEDED FOR NAUSEA AND VOMITING. MAX DAILY DOSE: 4 cetirizine 10 mg tablet 10 mg PO DAILY PRN (Reason: congestion) Patient Comments: TAKE 1 TABLET NEEDED FOR CONGESTION ORALLY ONCE A DAY benzonatate 200 mg capsule 200 mg PO TID PRN (Reason: cough) Patient Comments: TAKE 1 CAPSULE BY MOUTH THREE TIMES A DAY NEEDED FOR COUGH ipratropium bromide 42 mcg (0.06 %) spray,non-aerosol 2 spray INTRANASAL Q6HR PRN (Reason: allergy symptoms) Patient Comments: SPRAY 2 SPRAYS INTO EACH NOSTRIL 3 TIMES A DAY hydrocodone-acetaminophen 5-325 mg tablet 1 tab PO Q8H MDD 3 tab PRN (Reason: pain) Qty: 20 0RF thiamine HCl (vitamin B1) 100 mg capsule 100 mg PO QDAY Qty: 30 0RF multivitamin Tablet 1 tab PO QDAY Qty: 30 0RF baclofen 10 mg tablet 10 mg PO Q8H PRN (Reason: muscle spasm) albuterol sulfate 90 mcg/actuation HFA aerosol inhaler 1 inh INHALATION BID PRN (Reason: bronchospasm) Patient Comments: INHALE 2 PUFF INHALED EVERY 6 HOURS NEEDED FOR COUGH tamsulosin 0.4 mg Capsule 0.4 mg PO QDAY Qty: 30 0RF pantoprazole [Protonix] 40 mg tablet,delayed release (DR/EC) 40 mg PO QDAY Qty: 30 0RF Referrals: Jacinto Diaz MD [Primary Care Provider, [facility]] - In 1 week Problem List Clinical Impression: Accelerated hypertension, Alcohol withdrawal, Noncompliance with medications, Alcohol dependence Clinical Impression: (Ruled Out): Elevated transaminase level Impression comment: Alcohol withdrawal/accelerated hypertension Patient/Caregiver Discharge Instructions Discharge Activity: activity as tolerated Diet Instructions: Low-salt Education Materials: Alcohol Withdrawal: What to Expect, ED High Blood Pressure ... Additional Instructions: Low-salt diet. Avoid alcohol consumption medication as directed. Follow-up with alcohol rehabilitative program. Print Language: Kittitian Stand Alone Forms: Mayuri Award Info., Patient Portal Info Letter
[2025-05-17 21:22] LABS: Alanine Aminotransferase 91 U/L (10-49); Albumin, Serum 4.9 gm/dL (3.5-5.0); Albumin/Globulin Ratio 1.5 (1.2-2.2); Alkaline Phosphatase 414 U/L (46-116); Anion Gap 13 (7-16); Aspartate Amino Transferase 155 U/L (0-34); BUN/Creatinine Ratio 11 Ratio (12-20); Bilirubin,Total 0.7 mg/dL (0.3-1.2); Blood Urea Nitrogen 14 mg/dL (9-23); Calcium 9.4 mg/dL (8.3-10.6); Calcium (Corrected) 9.4 mg/dL (8.5-10.1); Carbon Dioxide 29.2 mMol/L (20.0-31.0); Chloride 104 mMol/L (98-107); Creatinine (Component) 1.3 mg/dL (0.6-1.3); Estimated Creatinine Clearance 84.3 mL/min (>60); Globulin 3.2 gm/dL (2.3-3.5); Glucose 122 mg/dL (74-106); Osmolality,Calculated 292 (275-295); Potassium 3.4 mMol/L (3.4-5.1); Sodium 146 mMol/L (136-145); Total Protein 8.1 gm/dL (5.7-8.2); Troponin I < 0.020 ng/mL (0.0-0.045); eGFR > 60 See Note
[2025-05-17 21:25] LABS: Collection Type, Urine Clean Catch; Squamous Epithelial Cell,Urine 0 /hpf (0-5)
[2025-05-17 21:31] LABS: Bilirubin,Urine Negative (Negative); Blood,Urine Negative (Negative); Clarity,Urine Clear (Clear/Hazy); Color,Urine Yellow (Lt Yel-Yel); Glucose, Urine Negative (Negative); Ketones,Urine Negative (Negative); Leukocyte Esterase,Urine Negative (Negative); Nitrite,Urine Negative (Negative); PH,Urine 6.5 (5.0-7.0); Protein,Urine 2+ (Neg - Trace); RBC,Urine 10 /hpf (0-3); Specific Gravity,Urine 1.028 (1.001-1.035); Urobilinogen,Urine 6.0 mg/dL (0.0-1.0); WBC,Urine 3 /hpf (0-5)
[2025-05-17 21:44] VITALS: BP 174/97; PULSE 107; RESP 19; O2SAT 94
[2025-05-17] MEDS: THIAMINE INJ 100 MG/ML VIAL 2 ML IVP (22:10)
[2025-05-17] MEDS: Magnesium Sulfate 2 GM Ivpb 2 GM/50 ML BAG IV (22:12)
[2025-05-17] MEDS: FOLIC ACID INJ 1 MG/0.2 ML IVP (22:13)
[2025-05-17] MEDS: SODIUM CHLORIDE 0.9% 1000 ML 1,000 ML 999 ML IV (22:13)
[2025-05-17 22:18] VITALS: BP 137/75; PULSE 97; RESP 16; O2SAT 96
[2025-05-17 22:30] VITALS: BP 146/83; PULSE 93; RESP 17; O2SAT 96
[2025-05-17 23:00] VITALS: BP 158/94; PULSE 93; RESP 17; O2SAT 97
[2025-05-17 23:30] VITALS: BP 145/87; PULSE 96; RESP 19; O2SAT 94
== END 2025-05-17 23:57 | disposition home or self-care (01) ==
PROVIDERS: Nurse Practitioner Family; Emergency Provider Emergency Medicine; PCP Family Medicine
DX: F10.239 Alcohol dependence with withdrawal, unspecified (principal); Z91.148 Patient's other noncompliance with medication regimen for other reason; I10 Essential (primary) hypertension; R00.0 Tachycardia, unspecified; R51.9 Headache, unspecified
CPT/HCPCS: 36415; 70450; 80053; 81001; 84484; 85025; 93005; 96361; 96374; 96375; 99284; J1920; J3411; J3475; J3490; J7030; A9270

== ENCOUNTER 2025-05-23 18:14 | Emergency (ER) | payer MEDICAID, SELFPAY ==
[2025-05-23 19:29] VITALS: BP 167/90; PULSE 98; RESP 18; TEMP 36.7; O2SAT 96; BMI 30.3
--- NOTE | 2025-05-23 19:40 | XR_ITS ---
Examination: Abdomen sonogram, Limited Date and time of exam: May 23, 2025, 2121 hours INDICATIONS: Right upper abdominal pain beginning 4 days ago Technique: Real-time cortes scale transabdominal sonographic images of the upper abdomen obtained. Findings: Multiple gallstones Normal gallbladder wall Normal common bile duct 0.5 cm Pancreatic head 3.0 cm Liver 18.2 cm fatty infiltration Normal hepatopetal portal venous flow Patent IVC IMPRESSION: Cholelithiasis, negative for cholecystitis
[2025-05-23 20:17] VITALS: BP 167/90; PULSE 98
[2025-05-23] MEDS: GABAPENTIN 300 MG CAPSULE 600 MG PO (20:17)
[2025-05-23 20:26] LABS: Basophils # (Auto) 0.1 Thou/mm3 (0.0-0.2); Basophils % (Auto) 1 % (0-2.5); Eosinophils # (Auto) 0.3 Thou/mm3 (0.0-0.5); Eosinophils % (Auto) 4 % (0-10); Hematocrit 36.0 % (41.0-53.0); Hemoglobin 11.7 g/dL (13.5-16.0); Immature Granulocytes Auto 0.02 Thou/mm3 (0.00-0.00); Lymphocytes # (Auto) 1.1 Thou/mm3 (1.0-4.8); Lymphocytes % (Auto) 16 % (10-50); Mean Corpuscular HGB Conc 32.5 g/dl (31.0-37.0); Mean Corpuscular Hemoglobin 29.5 pg (25.0-35.0); Mean Corpuscular Volume 91 fL (80-100); Monocytes # (Auto) 0.5 Thou/mm3 (0.0-0.8); Monocytes % (Auto) 8 % (0-12); Neutrophils # (Auto) 4.8 Thou/mm3 (1.8-7.7); Neutrophils % (Auto) 72 % (37-80); Nucleated Red Blood Cell # 0.00 Thou/mm3 (0.00-0.00); Nucleated Red Blood Cell % 0 /100 WBC (0); Platelet Count 164 Thou/mm3 (140-440); RDW Standard Deviation 50.9 fL (35.1-43.9); Red Blood Count 3.96 Miln/mm3 (4.50-5.90); White Blood Count 6.7 Thou/mm3 (3.8-10.6)
[2025-05-23 20:43] LABS: Alanine Aminotransferase 90 U/L (10-49); Albumin, Serum 4.6 gm/dL (3.5-5.0); Albumin/Globulin Ratio 1.4 (1.2-2.2); Alkaline Phosphatase 338 U/L (46-116); Anion Gap 11 (7-16); Aspartate Amino Transferase 120 U/L (0-34); BUN/Creatinine Ratio 10 Ratio (12-20); Bilirubin,Total 0.6 mg/dL (0.3-1.2); Blood Urea Nitrogen 10 mg/dL (9-23); Calcium 9.2 mg/dL (8.3-10.6); Calcium (Corrected) 9.2 mg/dL (8.5-10.1); Carbon Dioxide 24.7 mMol/L (20.0-31.0); Chloride 110 mMol/L (98-107); Creatinine (Component) 1.0 mg/dL (0.6-1.3); Estimated Creatinine Clearance 109.6 mL/min (>60); Globulin 3.2 gm/dL (2.3-3.5); Glucose 121 mg/dL (74-106); Lipase 52 U/L (12-53); Osmolality,Calculated 290 (275-295); Potassium 3.3 mMol/L (3.4-5.1); Sodium 146 mMol/L (136-145); Total Protein 7.8 gm/dL (5.7-8.2); eGFR > 60 See Note
[2025-05-23 22:25] LABS: Collection Type, Urine Clean Catch
[2025-05-23 22:56] LABS: Bacteria,Urine Rare; Bilirubin,Urine Negative (Negative); Blood,Urine Negative (Negative); Calcium Oxalate Crystals,Urine 3+; Clarity,Urine Turbid (Clear/Hazy); Color,Urine Yellow (Lt Yel-Yel); Glucose, Urine Negative (Negative); Ketones,Urine Negative (Negative); Leukocyte Esterase,Urine Negative (Negative); Nitrite,Urine Negative (Negative); PH,Urine 6.0 (5.0-7.0); Protein,Urine 1+ (Neg - Trace); RBC,Urine 5 /hpf (0-3); Specific Gravity,Urine 1.029 (1.001-1.035); Squamous Epithelial Cell,Urine < 1 /hpf (0-5); Urobilinogen,Urine 4.0 mg/dL (0.0-1.0); WBC,Urine 1 /hpf (0-5)
--- NOTE | 2025-05-23 23:19 | PD.EDABDPN ---
ED Abdominal Pain RME/HPI General Chief Complaint: Abdominal Pain Stated complaint: ABDOMINAL PAIN AND TOE PAIN Time seen by provider: 05/23/25 19:33 Arrival date/time: 05/23/25 18:14 Source: patient Mode of arrival: ambulatory Limitations: no limitations RME / HPI RME / HPI narrative: The patient is a what appears to be homeless 50-year-old male who arrives to the ED today for evaluation of nonspecific bilateral foot pain and right upper quadrant pain related to gallbladder concerns. Patient states he has a history of gallstones and has had pain in the past 2 days. Patient describes some additional neuropathic pain in his bilateral feet. Patient was dirty and not well-kept on arrival. Patient was hypertensive at arrival. Related Data Home Medications ?Medication ?Instructions ?Recorded ?Confirmed albuterol sulfate 90 mcg/actuation 1 inh inhalation BID PRN 12/26/24 04/16/25 aerosol inhaler bronchospasm baclofen 10 mg tablet 10 mg PO Q8H PRN muscle spasm 12/26/24 04/16/25 benzonatate 200 mg capsule 200 mg PO TID PRN cough 04/16/25 04/16/25 cetirizine 10 mg tablet 10 mg PO DAILY PRN congestion 04/16/25 04/16/25 ipratropium bromide 42 mcg (0.06 2 spray intranasal Q6HR PRN 04/16/25 04/16/25 %) nasal spray allergy symptoms metoclopramide HCl 10 mg tablet 10 mg PO Q6H PRN nausea and 04/16/25 04/16/25 vomiting Previous Rx's ?Medication ?Instructions ?Recorded multivitamin 1 tab PO QDAY #30 tabs 11/17/24 thiamine HCl (vitamin B1) 100 mg 100 mg PO QDAY #30 caps 11/17/24 capsule amlodipine 5 mg tablet 5 mg PO QDAY hypertension #30 tabs 12/17/24 tamsulosin 0.4 mg capsule 0.4 mg PO QDAY #30 caps 12/29/24 pantoprazole 40 mg tablet,delayed 40 mg PO QDAY #30 tabs 02/01/25 release (Protonix) hydrocodone 5 mg-acetaminophen 325 1 tab PO Q8H PRN pain #20 tabs 04/20/25 mg tablet carvedilol 6.25 mg tablet (Coreg) 6.25 mg PO BID HTN #60 tabs 05/17/25 chlordiazepoxide HCl 25 mg capsule 25 mg PO TID PRN alcohol 05/17/25 withdrawal #30 caps hydrochlorothiazide 25 mg tablet 25 mg PO QAM #30 tabs 05/17/25 lisinopril 40 mg tablet 40 mg PO QDAY #30 tabs 05/17/25 clonidine HCl 0.2 mg tablet 0.2 mg PO Q12H PRN hypertensive 05/23/25 emergency #10 tabs gabapentin 300 mg capsule 300 mg PO QID #20 caps 05/23/25 Allergies Allergy/AdvReac Type Severity Reaction Status Date / Time No Known Allergies Allergy Verified 05/17/25 20:25 Review of Systems Review of Systems Systems Reviewed: All systems reviewed, normal except as documented Past Medical History Past Medical History NEUROLOGIC: Positive Traumatic Brain Injury; Negative Neurological Disorders or Seizures CARDIAC: Positive Hypertension; Negative Cardiac Disorders or Congestive Heart Failure RESPIRATORY: Negative Chronic Obstructive Pulmonary Disease (COPD) or Asthma GASTROINTESTINAL: Positive Gall Bladder Disease and Hemorrhoids; Negative Gastrointestinal Disorders GENITOURINARY: Negative Genitourinary Disorders or Renal Disease MUSCULOSKELETAL: Positive Arthritis and Rheumatoid Arthritis; Negative Musculoskeletal Disorders ENDOCRINE: Negative Endocrine Disorders, Diabetes Mellitus Type 1 or Diabetes Mellitus Type 2 HEMATOLOGIC: Negative Blood Disorders or Sickle Cell Disease OTHER HISTORY: Negative Hospitalization, Autoimmune Disease, Down Syndrome, Developmental Delay, Shingles, Falls, Blood Transfusions, Anesthesia Reactions, Clostridium Difficile or Cancer Family History FAMILY HISTORY: Positive Family Cardiac Disorders and Family Cancer Social History SMOKING STATUS: Never smoker SECOND HAND EXPOSURE: No SUBSTANCE USE: does not use ED Exam Narrative Physical exam: Patient appeared to be in mild to moderate distress at time of evaluation due to abdominal pain concerns. General Limitations: Present no limitations General appearance: Present alert and in distress (Mild to moderate distress due to right upper quadrant pain.) Head Head exam: Present atraumatic Eye Eye exam: Present normal appearance, PERRL and EOMI ENT ENT exam: Present normal exam, normal oropharynx and mucous membranes moist Neck Neck exam: Present normal inspection, full ROM and trachea midline Chest Chest inspection: Present normal inspection and symmetric chest wall rise Respiratory Respiratory exam: Present normal lung sounds bilaterally Cardiovascular Cardiovascular exam: Present regular rate, normal rhythm and normal heart sounds Abdominal Exam Abdominal exam: Present soft, normal bowel sounds and other (Patient complains of nonspecific right upper quadrant pain throughout. Negative for McBurney's or Gutierrez's.) Extremities Exam Extremities exam: Present normal inspection and full ROM Back Exam Back exam: Present normal inspection and full ROM Neurological Exam Neurological exam: Present alert, oriented X3 and CN II-XII intact Psychiatric Psychiatric exam: Present normal affect and normal mood Skin Skin exam: Present warm, dry, intact and normal color Course Quality Measures none Orders Category Date Time Status US abdomen limited Stat Exams 05/23/25 19:40 Completed CBC Stat Lab 05/23/25 20:12 Completed CMP [Comprehensive Metabolic Panel] Stat Lab 05/23/25 20:12 Completed Lipase Stat Lab 05/23/25 20:12 Completed UA [Urinalysis] Stat Lab 05/23/25 22:15 Completed Gabapentin [Neurontin] Med 05/23/25 19:40 Discontinued 600 mg PO X1 ONE cloNIDine HCL [Catapres] Med 05/23/25 19:40 Discontinued 0.2 mg PO X1 ONE As noted above Vital Signs Vital signs: Vital Signs Temperature 98.1 F 05/23/25 19:29 Pulse Rate 98 05/23/25 19:29 Respiratory Rate 18 05/23/25 19:29 Blood Pressure 167/90 H 05/23/25 19:29 Pulse Oximetry (%) 96 05/23/25 19:29 Oxygen Delivery Method Room Air 05/23/25 19:29 As noted above Abdominal Pain MDM MDM Narrative MDM Narrative:: All studies performed in ED were evaluated by me personally. Laboratory studies revealed a mild anemia and imaging evaluation of the right upper quadrant revealed a cholelithiasis without a cholecystitis. Patient has been advised again to follow-up with primary care provider for long-term management of his gallstone concerns. Additionally, patient be sent home with a clonidine prescription to address emergent blood pressure concerns. Patient data External records reviewed:: [facility] previous records Clinical information provided by:: patient Social determinants that could affect healthcare access:: housing Patient has the following chronic illnesses:: Gallstones, hypertension How is presenting disease/condition affected by chronic disease/condition?: caused by Evaluation data The following diagnostics were reviewed and interpreted by me:: lab results and radiology exam(s) Lab and/or radiology exams considered but not ordered:: None Interpretation Summary: Anemia and cholelithiasis Medications / Prescriptions Medications or Prescriptions considered but not ordered:: None Medication administrations:: Medication Administration History Discontinued Medications Clonidine (Clonidine Hcl 0.1 Mg Tablet) 0.2 mg PO X1 ONE Stop: 05/23/25 19:41 Last Admin: 05/23/25 20:17 Dose: 0.2 mg Documented By: SALMA Gabapentin (Gabapentin 300 Mg Capsule) 600 mg PO X1 ONE Stop: 05/23/25 19:41 Last Admin: 05/23/25 20:17 Dose: 600 mg Documented By: SALMA As noted above Consultations Consultation(s) initiated? (list below): No Diagnosis Differential diagnosis abdominal pain: abdominal pain and other (Cholelithiasis, cholecystitis, neuropathy, hypertension) Most likely diagnosis given after review of the tests above:: Cholelithiasis, neuropathy, hypertension Admission Indicated Admission indicated?: not indicated Explain why admission is indicated or not indicated:: Unwarranted Admission Request Was there a request for admission?: No Disposition Plan Disposition Plan: Discharge Discharge Attestation Discharge Attestation: The patient and all family members were given an opportunity to ask questions and understood the discharge instructions. Discharge instructions specifically effects, indications for sooner follow up or return to the emergency department, and the expected course of current diagnosis. Patient condition: Stable Discharge Plan Plan Patient Disposition: HOME (Self Care) Prescriptions/Referrals Prescriptions/Med Rec: New gabapentin 300 mg capsule 300 mg PO QID Qty: 20 0RF clonidine HCl 0.2 mg tablet 0.2 mg PO Q12H PRN (Reason: hypertensive emergency) Qty: 10 0RF No Action amlodipine 5 mg tablet 5 mg PO QDAY MDD 1 Qty: 30 0RF metoclopramide HCl 10 mg tablet 10 mg PO Q6H PRN (Reason: nausea and vomiting) Patient Comments: TAKE 1 TABLET BY MOUTH EVERY 6 HOURS NEEDED FOR NAUSEA AND VOMITING. MAX DAILY DOSE: 4 cetirizine 10 mg tablet 10 mg PO DAILY PRN (Reason: congestion) Patient Comments: TAKE 1 TABLET NEEDED FOR CONGESTION ORALLY ONCE A DAY benzonatate 200 mg capsule 200 mg PO TID PRN (Reason: cough) Patient Comments: TAKE 1 CAPSULE BY MOUTH THREE TIMES A DAY NEEDED FOR COUGH ipratropium bromide 42 mcg (0.06 %) spray,non-aerosol 2 spray INTRANASAL Q6HR PRN (Reason: allergy symptoms) Patient Comments: SPRAY 2 SPRAYS INTO EACH NOSTRIL 3 TIMES A DAY hydrocodone-acetaminophen 5-325 mg tablet 1 tab PO Q8H MDD 3 tab PRN (Reason: pain) Qty: 20 0RF hydrochlorothiazide 25 mg tablet 25 mg PO QAM Qty: 30 1RF carvedilol [Coreg] 6.25 mg tablet 6.25 mg PO BID MDD 2 tab Qty: 60 0RF Rx Instructions: must administer with a meal/food lisinopril 40 mg tablet 40 mg PO QDAY Qty: 30 1RF chlordiazepoxide HCl 25 mg capsule 25 mg PO TID MDD 4 tab PRN (Reason: alcohol withdrawal) Qty: 30 0RF Rx Instructions: 1 tablet QID for 3 days then 1 tablet for TID for 3 days then 1 tablet BID for 3 days then 1 tab daily for 3 days then STOP thiamine HCl (vitamin B1) 100 mg capsule 100 mg PO QDAY Qty: 30 0RF multivitamin Tablet 1 tab PO QDAY Qty: 30 0RF baclofen 10 mg tablet 10 mg PO Q8H PRN (Reason: muscle spasm) albuterol sulfate 90 mcg/actuation HFA aerosol inhaler 1 inh INHALATION BID PRN (Reason: bronchospasm) Patient Comments: INHALE 2 PUFF INHALED EVERY 6 HOURS NEEDED FOR COUGH tamsulosin 0.4 mg Capsule 0.4 mg PO QDAY Qty: 30 0RF pantoprazole [Protonix] 40 mg tablet,delayed release (DR/EC) 40 mg PO QDAY Qty: 30 0RF Referrals: No Primary/Family,Physician [Primary Care Provider] - In 1 week Problem List Clinical Impression: Cholelithiasis, Peripheral neuropathy Patient/Caregiver Discharge Instructions Education Materials: What Is Peripheral Neuropathy, ED Gallstones with Biliary Colic Additional Instructions: Advised patient advised medication as needed for symptomatic relief. Patient should follow-up with primary care provider for discussions related to today's visit as well as blood pressure management concerns. Print Language: Finnish Stand Alone Forms: [employer] Award Info., Patient Portal Info Letter
[2025-05-23 23:58] VITALS: BP 140/85; PULSE 88; RESP 16; TEMP 36.9; O2SAT 97
== END 2025-05-24 00:04 | disposition home or self-care (01) ==
PROVIDERS: Physician Assistant; Emergency Provider Emergency Medicine
DX: K80.70 Calculus of gallbladder and bile duct without cholecystitis without obstruction (principal); G62.9 Polyneuropathy, unspecified
CPT/HCPCS: 36415; 76705; 80053; 81001; 83690; 85025; 99283; A9270

== ENCOUNTER 2025-05-27 23:10 | Emergency (ER) | payer MEDICAID, SELFPAY ==
[2025-05-27 23:12] VITALS: BP 199/107; PULSE 98; RESP 18; TEMP 36.5; O2SAT 97
[2025-05-27 23:13] VITALS: BMI 29.0
--- NOTE | 2025-05-27 23:13 | EKG_ITS ---
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
--- NOTE | 2025-05-27 23:13 | PD.EDADULT ---
ED General RME/HPI General Chief complaint: General Adult/Misc Complain Stated complaint: SHORTNESS OF BREATH Time Seen by Provider: 05/27/25 23:13 Arrival date/time: 05/27/25 23:10 Limitations: no limitations RME / HPI RME / HPI narrative: Dr. Aguiar?s Main ED Evaluation: 50yo male with a history of HTN (not taking any medications), alcohol abuse BIBA from home presents to the ED for a chief complaint of general malaise. Patient states he feels generally unwell, reporting he has chest pain, shortness of breath, nausea, and a headache. Patient's last drink was 4-5 hours ago, reporting he normally drinks 1-2 gallons of vodka per day. Patient denies any vomiting, diarrhea, dysuria, hematuria, or any other associated symptoms. Patient does use methamphetamines, but denies any use in the last couple days. NKA. Related Data Home Medications ?Medication ?Instructions ?Recorded ?Confirmed albuterol sulfate 90 mcg/actuation 1 inh inhalation BID PRN 12/26/24 04/16/25 aerosol inhaler bronchospasm baclofen 10 mg tablet 10 mg PO Q8H PRN muscle spasm 12/26/24 04/16/25 benzonatate 200 mg capsule 200 mg PO TID PRN cough 04/16/25 04/16/25 cetirizine 10 mg tablet 10 mg PO DAILY PRN congestion 04/16/25 04/16/25 ipratropium bromide 42 mcg (0.06 2 spray intranasal Q6HR PRN 04/16/25 04/16/25 %) nasal spray allergy symptoms metoclopramide HCl 10 mg tablet 10 mg PO Q6H PRN nausea and 04/16/25 04/16/25 vomiting Previous Rx's ?Medication ?Instructions ?Recorded multivitamin 1 tab PO QDAY #30 tabs 11/17/24 thiamine HCl (vitamin B1) 100 mg 100 mg PO QDAY #30 caps 11/17/24 capsule amlodipine 5 mg tablet 5 mg PO QDAY hypertension #30 tabs 12/17/24 tamsulosin 0.4 mg capsule 0.4 mg PO QDAY #30 caps 12/29/24 pantoprazole 40 mg tablet,delayed 40 mg PO QDAY #30 tabs 02/01/25 release (Protonix) hydrocodone 5 mg-acetaminophen 325 1 tab PO Q8H PRN pain #20 tabs 04/20/25 mg tablet carvedilol 6.25 mg tablet (Coreg) 6.25 mg PO BID HTN #60 tabs 05/17/25 chlordiazepoxide HCl 25 mg capsule 25 mg PO TID PRN alcohol 05/17/25 withdrawal #30 caps hydrochlorothiazide 25 mg tablet 25 mg PO QAM #30 tabs 05/17/25 lisinopril 40 mg tablet 40 mg PO QDAY #30 tabs 05/17/25 clonidine HCl 0.2 mg tablet 0.2 mg PO Q12H PRN hypertensive 05/23/25 emergency #10 tabs gabapentin 300 mg capsule 300 mg PO QID #20 caps 05/23/25 Allergies Allergy/AdvReac Type Severity Reaction Status Date / Time No Known Allergies Allergy Verified 05/27/25 23:15 Review of Systems Review of Systems Systems Reviewed: All systems reviewed, normal except as documented ED Exam General Limitations: Present no limitations General appearance: Present alert, in no apparent distress and other (chronically-ill appearing with acute decompensation; hand tremors) Head Head exam: Present atraumatic Eye Eye exam: Present normal appearance, PERRL and EOMI ENT ENT exam: Present normal oropharynx, mucous membranes moist and other (poor dentition; tongue fasciculations) Neck Neck exam: Present normal inspection, full ROM and trachea midline Chest Chest inspection: Present normal inspection and symmetric chest wall rise Respiratory Respiratory exam: Present normal lung sounds bilaterally Cardiovascular Cardiovascular exam: Present regular rate, normal rhythm and normal heart sounds Abdominal Exam Abdominal exam: Present soft Extremities Exam Extremities exam: Present normal inspection and full ROM; Absent pedal edema Back Exam Back exam: Present normal inspection and full ROM Neurological Exam Neurological exam: Present alert, oriented X3 and CN II-XII intact Psychiatric Psychiatric exam: Present normal affect and normal mood Skin Skin exam: Present warm, dry, intact and normal color Course Quality Measures none Orders Category Date Time Status Bedside COVID-19 Antigen Test NOW Care 05/27/25 23:13 Active Bedside Influenza A&B Antigen Test NOW Care 05/27/25 23:14 Completed EKG (ED ONLY) *Do not use* NOW Care 05/27/25 23:14 Completed IV [Insert IV] NOW Care 05/27/25 23:38 Active CXR [XR chest 1V] Stat Exams 05/27/25 23:13 Completed EKG (ED Only) Stat Exams 05/27/25 23:13 Draft BNP [B-Type Natriuretic Peptide] Stat Lab 05/27/25 23:27 Completed CBC Stat Lab 05/27/25 23:27 Completed CMP [Comprehensive Metabolic Panel] Stat Lab 05/27/25 23:27 Completed Drug Screen,Urine Stat Lab 05/28/25 01:41 Completed INR [Prothrombin Time with INR] Stat Lab 05/27/25 23:27 Completed Troponin I Stat Lab 05/27/25 23:27 Completed Troponin I Stat Lab 05/28/25 01:12 Completed Troponin I Stat Lab 05/28/25 03:30 Completed Aspirin Chew Med 05/27/25 23:14 Discontinued 81 mg PO X1 ONE Diazepam Inj [Valium Inj] Med 05/27/25 23:16 Discontinued 5 mg IVP X1 ONE Folic Acid Inj Med 05/27/25 23:14 Discontinued 1 mg IVP X1 ONE Ondansetron Inj [Zofran Inj] Med 05/27/25 23:14 Discontinued 4 mg IVP X1 ONE Ringers Lactated 1000 ml [Lactated Ringers] 1,000 ml Med 05/27/25 23:14 Discontinued IV 999 mls/hr Thiamine Inj [Vitamin B-1 Inj] 100 mg Med 05/27/25 23:15 Discontinued Sodium Chloride 0.9% [Ns] 100 ml IV X1 Vital Signs Vital signs: Vital Signs Temperature 97.7 F 05/27/25 23:12 Pulse Rate 98 05/27/25 23:12 Respiratory Rate 18 05/27/25 23:12 Blood Pressure 199/107 H 05/27/25 23:12 Pulse Oximetry (%) 97 05/27/25 23:12 Oxygen Delivery Method Room Air 05/27/25 23:12 Discharge Plan Plan Patient Disposition: HOME (Self Care) Prescriptions/Referrals Prescriptions/Med Rec: No Action amlodipine 5 mg tablet 5 mg PO QDAY MDD 1 Qty: 30 0RF metoclopramide HCl 10 mg tablet 10 mg PO Q6H PRN (Reason: nausea and vomiting) Patient Comments: TAKE 1 TABLET BY MOUTH EVERY 6 HOURS NEEDED FOR NAUSEA AND VOMITING. MAX DAILY DOSE: 4 cetirizine 10 mg tablet 10 mg PO DAILY PRN (Reason: congestion) Patient Comments: TAKE 1 TABLET NEEDED FOR CONGESTION ORALLY ONCE A DAY benzonatate 200 mg capsule 200 mg PO TID PRN (Reason: cough) Patient Comments: TAKE 1 CAPSULE BY MOUTH THREE TIMES A DAY NEEDED FOR COUGH ipratropium bromide 42 mcg (0.06 %) spray,non-aerosol 2 spray INTRANASAL Q6HR PRN (Reason: allergy symptoms) Patient Comments: SPRAY 2 SPRAYS INTO EACH NOSTRIL 3 TIMES A DAY hydrocodone-acetaminophen 5-325 mg tablet 1 tab PO Q8H MDD 3 tab PRN (Reason: pain) Qty: 20 0RF hydrochlorothiazide 25 mg tablet 25 mg PO QAM Qty: 30 1RF carvedilol [Coreg] 6.25 mg tablet 6.25 mg PO BID MDD 2 tab Qty: 60 0RF Rx Instructions: must administer with a meal/food lisinopril 40 mg tablet 40 mg PO QDAY Qty: 30 1RF chlordiazepoxide HCl 25 mg capsule 25 mg PO TID MDD 4 tab PRN (Reason: alcohol withdrawal) Qty: 30 0RF Rx Instructions: 1 tablet QID for 3 days then 1 tablet for TID for 3 days then 1 tablet BID for 3 days then 1 tab daily for 3 days then STOP thiamine HCl (vitamin B1) 100 mg capsule 100 mg PO QDAY Qty: 30 0RF multivitamin Tablet 1 tab PO QDAY Qty: 30 0RF baclofen 10 mg tablet 10 mg PO Q8H PRN (Reason: muscle spasm) albuterol sulfate 90 mcg/actuation HFA aerosol inhaler 1 inh INHALATION BID PRN (Reason: bronchospasm) Patient Comments: INHALE 2 PUFF INHALED EVERY 6 HOURS NEEDED FOR COUGH tamsulosin 0.4 mg Capsule 0.4 mg PO QDAY Qty: 30 0RF pantoprazole [Protonix] 40 mg tablet,delayed release (DR/EC) 40 mg PO QDAY Qty: 30 0RF gabapentin 300 mg capsule 300 mg PO QID Qty: 20 0RF clonidine HCl 0.2 mg tablet 0.2 mg PO Q12H PRN (Reason: hypertensive emergency) Qty: 10 0RF Referrals: Jacinto Diza MD [Primary Care Provider, Family Practice] - In 1 week Problem List Clinical Impression: Chest pain, Alcohol use disorder, Methamphetamine use Patient/Caregiver Discharge Instructions Education Materials: Alcohol Addiction, Understanding Methamphetamine ..., ED Chest Pain, Uncertain Cause Additional Instructions: Labs today show that you have anemia, however you do not need a emergent blood transfusion. Your potassium was slightly low, it is important that you eat a potassium rich diet including potatoes and bananas. Your renal function was normal. Your liver function is abnormal however not significantly changed from before. This is likely secondary to your chronic alcohol use. I recommend that you seek support for sobriety, and alcoholic synonymous or other services to help you with your alcohol and methamphetamine use. Glad that you are feeling better, please follow-up with your primary care doctor within 1 to 2 days return immediately for worsening symptoms or new symptoms or concerns Print Language: Indonesian Stand Alone Forms: [employer] Award Info., Patient Portal Info Letter MDM Narrative MDM hospital course (for use when minimal MDM required): Scribe Attestation: 05/27/25 - Wanda, Kelly Diaz, am scribing for and in the presence of Dr. Aguiar. Patient is a 50-year-old male with medical history notable for alcohol use disorder, alcohol withdrawal, hypertension, medication noncompliance to the emergency ferment with concerns for nausea, shortness of breath, chest pain, feeling anxious and generally unwell. Vital signs and exam as listed. Concern for ACS, arrhythmia, electrolyte abnormality, CHF exacerbation, alcohol withdrawal among others. Patient CIWA 13, has headache, anxious, is tremulous, perceptible sweating barely. Ordered labs EKG chest x-ray fluids vitamins and medications for symptom relief. Labs with evidence of microcytic anemia, hemoglobin 11.3 this is at the patient's baseline. Patient with mild hypokalemia, potassium 3.3. Advised patient on eating potassium rich foods including bananas. Sodium 149, chloride 109. Patient received IV fluids. Patient glucose 190 not in DKA. Also has a transaminitis with an AST 96 ALT of 54 alk phos 340. Patient is at his baseline. Troponin not elevated BNP within normal limits. Chest x-ray without evidence of any acute cardiopulmonary abnormalities. EKG performed today at 2320, interpreted by me, sinus rhythm, heart rate 91, normal intervals, nonspecific T wave changes, not a cardiac alert. Patient drinking heavily to nursing staff as well as using methamphetamines earlier today. 0053: Patient is resting comfortably and feels significantly better. CIWA 0. Repeat troponin not elevated. 0142: Re-evaluated patient, patient states that he is having chest pain again. Will provide patient with medication for symptom relief, patient CIWA continues to be 0. Patient is concerned he may have used too much methamphetamine. Will repeat patient's cardiac enzyme in 2 hours. 0449: 3rd troponin is negative. Patient is resting comfortably, not in any acute distress, and is stable to be discharged home. Clinical Information Provided by: patient and EMS Medical Records reviewed [facility] (Per chart review, patient was seen here on 05/23/25 for cholelithiasis.) Meds/Rx considered, not ordered None Labs/Rad/Tests considered, not ordered None Chronic Illness/Social Conditions Explain: Hx HTN, alcohol use Labs Labs: interpreted by me Imaging Imaging interpretation: interpreted by me Imaging Interpretation(s): [facility] Report Signed Patient: CECY PINEDA Record#: [id number] Birthdate: 1975 Age/Sex: 50 / M Location: [facility] Attending Dr: Ordering Physician: Zonia Aguiar MD Date of Service: 05/27/25 Procedure(s): XR chest 1V Accession Number(s): [id number] cc: Apolinar Ye MD; Zonia Aguiar MD~ EXAMINATION: AP chest single view TECHNIQUE: AP portable upright chest single view Date and time: May 27, 2025, 11:22 p.m., comparison April 07, 2025 INDICATIONS: Shortness of breath today. FINDINGS: Mild prominence left ventricle No pneumonia or pulmonary edema Osseous structures are intact IMPRESSION: No pneumonia or pulmonary edema Dictated By: Apolinar Ye MD Signed By: <Electronically signed by Apolinar Ye MD in OV> 05/27/25 0204 Medication Administration(s) Medication Administration History Discontinued Medications Aspirin (Aspirin 81 Mg Chew) 81 mg PO X1 ONE Stop: 05/27/25 23:15 Last Admin: 05/27/25 23:44 Dose: 81 mg Documented By: SOLOMON Diazepam (Diazepam Inj 5 Mg/Ml Vial 2 Ml) 5 mg IVP X1 ONE Stop: 05/27/25 23:17 Last Admin: 05/27/25 23:43 Dose: 5 mg Documented By: SOLOMON Folic Acid (Folic Acid Inj 1 Mg/0.2 Ml) 1 mg IVP X1 ONE Stop: 05/27/25 23:15 Last Admin: 05/27/25 23:44 Dose: 1 mg Documented By: SOLOMON Thiamine HCl 100 mg/ Sodium (Chloride) 101 mls @ 202 mls/hr IV X1 ONE Stop: 05/27/25 23:44 Last Infusion: 05/28/25 00:17 Dose: Infused Documented By: Admin: 05/27/25 23:42 Dose: 202 mls/hr Documented By: SOLOMON Lactated Ringer's (Lactated Ringers) 1,000 mls @ 999 mls/hr IV .Q1H1M ONE Stop: 05/28/25 00:14 Last Infusion: 05/28/25 00:48 Dose: Infused Documented By: Admin: 05/27/25 23:44 Dose: 999 mls/hr Documented By: SOLOMON Ondansetron HCl (Ondansetron Inj 2 Mg/Ml Inj 2 Ml) 4 mg IVP X1 ONE; Protocol Stop: 05/27/25 23:15 Last Admin: 05/27/25 23:44 Dose: 4 mg Documented By: SOLOMON see above Diagnosis Differential Diagnosis ED Complaint MDM: See MDM
[2025-05-27 23:16] VITALS: PULSE 120; RESP 16; O2SAT 98
[2025-05-27 23:19] VITALS: BP 185/97; PULSE 91; RESP 18; TEMP 36.7; O2SAT 96
[2025-05-27 23:42] LABS: Basophils # (Auto) 0.0 Thou/mm3 (0.0-0.2); Basophils % (Auto) 1 % (0-2.5); Eosinophils # (Auto) 0.2 Thou/mm3 (0.0-0.5); Eosinophils % (Auto) 2 % (0-10); Hematocrit 35.8 % (41.0-53.0); Hemoglobin 11.3 g/dL (13.5-16.0); Immature Granulocytes Auto 0.01 Thou/mm3 (0.00-0.00); Lymphocytes # (Auto) 0.9 Thou/mm3 (1.0-4.8); Lymphocytes % (Auto) 13 % (10-50); Mean Corpuscular HGB Conc 31.6 g/dl (31.0-37.0); Mean Corpuscular Hemoglobin 28.3 pg (25.0-35.0); Mean Corpuscular Volume 90 fL (80-100); Monocytes # (Auto) 0.6 Thou/mm3 (0.0-0.8); Monocytes % (Auto) 8 % (0-12); Neutrophils # (Auto) 5.1 Thou/mm3 (1.8-7.7); Neutrophils % (Auto) 76 % (37-80); Nucleated Red Blood Cell # 0.00 Thou/mm3 (0.00-0.00); Nucleated Red Blood Cell % 0 /100 WBC (0); Platelet Count 156 Thou/mm3 (140-440); RDW Standard Deviation 49.9 fL (35.1-43.9); Red Blood Count 3.99 Miln/mm3 (4.50-5.90); White Blood Count 6.7 Thou/mm3 (3.8-10.6)
[2025-05-27] MEDS: THIAMINE INJ 100 MG in SODIUM CHLORIDE 0.9% 100 ML 202 MG IV (23:42)
[2025-05-27] MEDS: DIAZEPAM INJ 5 MG/ML VIAL 2 ML IVP (23:43)
[2025-05-27] MEDS: RINGERS LACTATED 1000 ML 1,000 ML 999 ML IV (23:44)
[2025-05-27] MEDS: ONDANSETRON INJ 2 MG/ML INJ 2 ML 4 MG IVP (23:44)
[2025-05-27] MEDS: FOLIC ACID INJ 1 MG/0.2 ML IVP (23:44)
[2025-05-27] MEDS: ASPIRIN 81 MG CHEW PO (23:44)
[2025-05-27 23:54] LABS: INR 1.0 (0.9-1.3); Prothrombin Time 11.0 Seconds (9.0-12.2)
[2025-05-27 23:59] LABS: Alanine Aminotransferase 54 U/L (10-49); Albumin, Serum 4.5 gm/dL (3.5-5.0); Albumin/Globulin Ratio 1.5 (1.2-2.2); Alkaline Phosphatase 340 U/L (46-116); Anion Gap 16 (7-16); Aspartate Amino Transferase 96 U/L (0-34); BUN/Creatinine Ratio 12 Ratio (12-20); Bilirubin,Total 0.6 mg/dL (0.3-1.2); Blood Urea Nitrogen 11 mg/dL (9-23); Calcium 8.9 mg/dL (8.3-10.6); Calcium (Corrected) 8.9 mg/dL (8.5-10.1); Carbon Dioxide 24.2 mMol/L (20.0-31.0); Chloride 109 mMol/L (98-107); Creatinine (Component) 0.9 mg/dL (0.6-1.3); Estimated Creatinine Clearance 119.3 mL/min (>60); Globulin 3.1 gm/dL (2.3-3.5); Glucose 190 mg/dL (74-106); Osmolality,Calculated 300 (275-295); Potassium 3.3 mMol/L (3.4-5.1); Sodium 149 mMol/L (136-145); Total Protein 7.6 gm/dL (5.7-8.2); Troponin I < 0.020 ng/mL (0.0-0.045); eGFR > 60 See Note
[2025-05-28 00:02] LABS: B-Type Natriuretic Peptide 73 pg/mL (0-100)
[2025-05-28 01:30] VITALS: BP 179/97; PULSE 97; O2SAT 97
[2025-05-28 01:35] LABS: Troponin I < 0.020 ng/mL (0.0-0.045)
[2025-05-28 01:59] LABS: Amphetamine/Methamp Scrn,U Positive (Negative); Barbiturate Screen,Urine Negative (Negative); Benzodiazepines Screen,Urine Negative (Negative); Benzoylecgonine Screen, Ur Negative (Negative); Fentanyl Screen,Urine Negative (Negative); Opiate Screen,Urine Negative (Negative); THC Screen,Urine Negative (Negative)
[2025-05-28 03:10] VITALS: BP 165/107; PULSE 96; RESP 14; TEMP 36.9; O2SAT 95
[2025-05-28 04:01] LABS: Troponin I < 0.020 ng/mL (0.0-0.045)
[2025-05-28 04:20] VITALS: BP 172/102; PULSE 98; RESP 19; TEMP 37; O2SAT 99
[2025-05-28 05:16] VITALS: BP 202/114; PULSE 96
--- NOTE | 2025-05-28 05:17 | PC.NURSE ---
DR ROMERO PRESCRIBED PT AMLODIPINE FOR HIGH BLOOD PRESSURE BEFORE PT IS DC'D. PT ADMINISTERED MED AND DC'D.
== END 2025-05-28 05:16 | disposition home or self-care (01) ==
PROVIDERS: Emergency Provider Emergency Medicine; PCP Family Medicine
DX: F10.20 Alcohol dependence, uncomplicated (principal); F15.90 Other stimulant use, unspecified, uncomplicated; R07.9 Chest pain, unspecified; R06.02 Shortness of breath; I10 Essential (primary) hypertension; R11.2 Nausea with vomiting, unspecified
CPT/HCPCS: 36415; 71045; 80053; 80307; 83880; 84484; 85025; 85610; 87502; 87635; 93005; 96365; 96375; 99284; J2405; J3360; J3411; J3490; J7050; J7120; A9270

== ENCOUNTER 2025-06-01 19:02 | Emergency (ER) | payer MEDICAID, SELFPAY ==
[2025-06-01 19:05] VITALS: PULSE 108; RESP 18; O2SAT 98; BMI 30.3
[2025-06-01 19:06] VITALS: BP 149/96; PULSE 105; RESP 19; TEMP 37.3; O2SAT 99
--- NOTE | 2025-06-01 19:18 | XR_ITS ---
Examination: Abdomen sonogram, Limited Date and time of exam: June 01, 2025, 2141 hours INDICATIONS: Onset abdominal pain today Technique: Real-time cortes scale transabdominal sonographic images of the upper abdomen obtained. Findings: Multiple gallstones Normal gallbladder wall Normal common bile duct 0.6 cm Pancreatic head 3.5 cm Liver 18.5 cm fatty infiltration no focal liver lesions Normal hepatopetal portal venous Patent IVC IMPRESSION: Cholelithiasis, negative for cholecystitis No common bile duct stones Mild to moderate hepatomegaly with fatty infiltration
--- NOTE | 2025-06-01 19:19 | PD.EDRME ---
Rapid Medical Screening Exam RME Arrival date/time: 06/01/25 19:02 This is a case of etoh came in with abdominal pain pain with nausea with vomiting today afetr alcohol intake Chief Complaint: Alcohol Time Seen by Provider: 06/01/25 19:18 Vital signs: Vital Signs Temperature 99.2 F 06/01/25 19:06 Pulse Rate 105 H 06/01/25 19:06 Respiratory Rate 19 06/01/25 19:06 Blood Pressure 149/96 H 06/01/25 19:06 Pulse Oximetry (%) 99 06/01/25 19:06 Oxygen Delivery Method Room Air 06/01/25 19:06 Exam: abdominal tenderness epigastric area and right upper quadrant no quarding no rebound no rigidity Clinical Impression: abdominal pain
[2025-06-01 19:45] LABS: Lactate (Lactic Acid) 2.3 mMol/L (0.4-2.0)
[2025-06-01 19:48] LABS: Basophils # (Auto) 0.1 Thou/mm3 (0.0-0.2); Basophils % (Auto) 1 % (0-2.5); Eosinophils # (Auto) 0.2 Thou/mm3 (0.0-0.5); Eosinophils % (Auto) 2 % (0-10); Hematocrit 38.0 % (41.0-53.0); Hemoglobin 12.4 g/dL (13.5-16.0); Immature Granulocytes Auto 0.03 Thou/mm3 (0.00-0.00); Lymphocytes # (Auto) 1.3 Thou/mm3 (1.0-4.8); Lymphocytes % (Auto) 13 % (10-50); Mean Corpuscular HGB Conc 32.6 g/dl (31.0-37.0); Mean Corpuscular Hemoglobin 28.6 pg (25.0-35.0); Mean Corpuscular Volume 88 fL (80-100); Monocytes # (Auto) 0.8 Thou/mm3 (0.0-0.8); Monocytes % (Auto) 8 % (0-12); Neutrophils # (Auto) 7.4 Thou/mm3 (1.8-7.7); Neutrophils % (Auto) 76 % (37-80); Nucleated Red Blood Cell # 0.00 Thou/mm3 (0.00-0.00); Nucleated Red Blood Cell % 0 /100 WBC (0); Platelet Count 118 Thou/mm3 (140-440); RDW Standard Deviation 46.3 fL (35.1-43.9); Red Blood Count 4.33 Miln/mm3 (4.50-5.90); White Blood Count 9.8 Thou/mm3 (3.8-10.6)
[2025-06-01 20:23] LABS: Collection Type, Urine Clean Catch; Squamous Epithelial Cell,Urine 0 /hpf (0-5)
[2025-06-01 20:35] LABS: Bilirubin,Urine Negative (Negative); Blood,Urine Negative (Negative); Clarity,Urine Clear (Clear/Hazy); Color,Urine Yellow (Lt Yel-Yel); Glucose, Urine Negative (Negative); Hyaline Casts,Urine < 1 /hpf (0-1); Ketones,Urine Negative (Negative); Leukocyte Esterase,Urine Negative (Negative); Nitrite,Urine Negative (Negative); PH,Urine 6.0 (5.0-7.0); Protein,Urine Trace (Neg - Trace); RBC,Urine 4 /hpf (0-3); Specific Gravity,Urine 1.014 (1.001-1.035); Urobilinogen,Urine 2.0 mg/dL (0.0-1.0); WBC,Urine 1 /hpf (0-5)
[2025-06-01 20:57] LABS: Alanine Aminotransferase 71 U/L (10-49); Albumin, Serum 4.8 gm/dL (3.5-5.0); Albumin/Globulin Ratio 1.5 (1.2-2.2); Alkaline Phosphatase 338 U/L (46-116); Anion Gap 16 (7-16); Aspartate Amino Transferase 141 U/L (0-34); BUN/Creatinine Ratio 12 Ratio (12-20); Bilirubin,Total 0.9 mg/dL (0.3-1.2); Blood Urea Nitrogen 12 mg/dL (9-23); Calcium 9.1 mg/dL (8.3-10.6); Calcium (Corrected) 9.1 mg/dL (8.5-10.1); Carbon Dioxide 23.8 mMol/L (20.0-31.0); Chloride 102 mMol/L (98-107); Creatinine (Component) 1.0 mg/dL (0.6-1.3); Estimated Creatinine Clearance 109.6 mL/min (>60); Globulin 3.2 gm/dL (2.3-3.5); Glucose 108 mg/dL (74-106); LDH (Lactate Dehydrogenase) 285 U/L (120-246); Lipase 64 U/L (12-53); Osmolality,Calculated 283 (275-295); Potassium 3.5 mMol/L (3.4-5.1); Sodium 142 mMol/L (136-145); Total Protein 8.0 gm/dL (5.7-8.2); eGFR > 60 See Note
[2025-06-01] MEDS: ONDANSETRON INJ 2 MG/ML INJ 2 ML 4 MG IM (22:04)
[2025-06-01 22:41] LABS: Reflex Lactate? Y
--- NOTE | 2025-06-02 00:21 | PC.NURSE ---
called no answer x1 [id number]
--- NOTE | 2025-06-02 00:35 | PC.NURSE ---
NO ANSWER FOR REVIEW
--- NOTE | 2025-06-02 00:56 | PC.NURSE ---
NO ANSWER FOR REVIEW
== END 2025-06-02 00:58 | disposition left against medical advice (07) ==
LOC: SERX 19:55
PROVIDERS: Nurse Practitioner Family; Emergency Provider Emergency Medicine
DX: R10.9 Unspecified abdominal pain (principal); Z53.29 Procedure and treatment not carried out because of patient's decision for other reasons
CPT/HCPCS: 36415; 76705; 80053; 81001; 83605; 83615; 83690; 85025; 96372; 99283; J2405

== ENCOUNTER 2025-06-11 19:34 | Emergency (ER) | payer MEDICAID, SELFPAY ==
[2025-06-11 19:36] VITALS: BMI 30.3
[2025-06-11 19:37] VITALS: BP 172/106; PULSE 86; RESP 18; TEMP 36.7; O2SAT 99
[2025-06-11 19:47] VITALS: PULSE 91; RESP 18; O2SAT 98; BMI 31.1
--- NOTE | 2025-06-11 20:16 | XR_ITS ---
Examination: Abdomen sonogram, Limited Date and time of exam: June 11, 2025, 2030 hours INDICATIONS: Right upper abdominal pain beginning 1 week ago Technique: Real-time cortes scale transabdominal sonographic images of the upper abdomen obtained. Findings: Cholelithiasis Gallbladder wall is thickened 0.7 cm Common bile duct 0.6 cm no stones Pancreatic head 3.7 cm Liver 18.3 cm lobular contour no focal liver lesions Normal portal venous flow Patent IVC IMPRESSION: Cholelithiasis Findings consistent with cholecystitis Enlarged common bile duct, consider MRCP follow-up to exclude common bile duct stones or stricture and to confirm cholecystitis
--- NOTE | 2025-06-11 20:17 | PD.EDRME ---
Rapid Medical Screening Exam RME Arrival date/time: 06/11/25 19:34 50M with history of HTN, alcoholic cirrhosis and drug use presents to ED with RUQ/epigastric pain. Patient recently discharged from [facility]. Chief Complaint: Abdominal Pain Vital signs: Vital Signs Temperature 98.1 F 06/11/25 19:37 Pulse Rate 86 06/11/25 19:37 Respiratory Rate 18 06/11/25 19:37 Blood Pressure 172/106 H 06/11/25 19:37 Pulse Oximetry (%) 99 06/11/25 19:37 Oxygen Delivery Method Room Air 06/11/25 19:37 Exam: Some ab swelling. RUQ/epigastric tenderness Clinical Impression: alcohol/drug use vs pancreatitis vs biliary disease vs GERD vs gastritis
[2025-06-11 20:43] LABS: Basophils # (Auto) 0.1 Thou/mm3 (0.0-0.2); Basophils % (Auto) 1 % (0-2.5); Eosinophils # (Auto) 0.2 Thou/mm3 (0.0-0.5); Eosinophils % (Auto) 3 % (0-10); Hematocrit 38.2 % (41.0-53.0); Hemoglobin 12.2 g/dL (13.5-16.0); Immature Granulocytes Auto 0.02 Thou/mm3 (0.00-0.00); Lymphocytes # (Auto) 1.1 Thou/mm3 (1.0-4.8); Lymphocytes % (Auto) 18 % (10-50); Mean Corpuscular HGB Conc 31.9 g/dl (31.0-37.0); Mean Corpuscular Hemoglobin 28.6 pg (25.0-35.0); Mean Corpuscular Volume 90 fL (80-100); Monocytes # (Auto) 0.5 Thou/mm3 (0.0-0.8); Monocytes % (Auto) 9 % (0-12); Neutrophils # (Auto) 4.2 Thou/mm3 (1.8-7.7); Neutrophils % (Auto) 69 % (37-80); Nucleated Red Blood Cell # 0.00 Thou/mm3 (0.00-0.00); Nucleated Red Blood Cell % 0 /100 WBC (0); Platelet Count 133 Thou/mm3 (140-440); RDW Standard Deviation 47.1 fL (35.1-43.9); Red Blood Count 4.27 Miln/mm3 (4.50-5.90); White Blood Count 6.2 Thou/mm3 (3.8-10.6)
[2025-06-11] MEDS: ONDANSETRON ODT 4 MG TABRAP PO (20:51)
[2025-06-11] MEDS: FAMOTIDINE 20 MG TABLET PO (20:51)
[2025-06-11] MEDS: MG HYD/AL HYD/SIME (Maalox Reg) SUSP 30 ML UDC PO (20:52)
[2025-06-11 21:06] LABS: Alanine Aminotransferase 103 U/L (10-49); Albumin, Serum 4.7 gm/dL (3.5-5.0); Albumin/Globulin Ratio 1.3 (1.2-2.2); Alcohol, Blood Medical 281.9 mg/dL (0-10.0); Alkaline Phosphatase 336 U/L (46-116); Anion Gap 12 (7-16); Aspartate Amino Transferase 141 U/L (0-34); BUN/Creatinine Ratio 15 Ratio (12-20); Bilirubin,Total 0.6 mg/dL (0.3-1.2); Blood Urea Nitrogen 12 mg/dL (9-23); Calcium 9.5 mg/dL (8.3-10.6); Calcium (Corrected) 9.5 mg/dL (8.5-10.1); Carbon Dioxide 25.1 mMol/L (20.0-31.0); Chloride 109 mMol/L (98-107); Creatinine (Component) 0.8 mg/dL (0.6-1.3); Estimated Creatinine Clearance 134.9 mL/min (>60); Globulin 3.5 gm/dL (2.3-3.5); Glucose 111 mg/dL (74-106); Lipase 55 U/L (12-53); Osmolality,Calculated 291 (275-295); Potassium 3.3 mMol/L (3.4-5.1); Sodium 146 mMol/L (136-145); Total Protein 8.2 gm/dL (5.7-8.2); eGFR > 60 See Note
--- NOTE | 2025-06-11 22:21 | PD.EDADULT ---
ED General RME/HPI General Chief complaint: Abdominal Pain Stated complaint: ABD PAIN Time Seen by Provider: 06/11/25 20:18 Arrival date/time: 06/11/25 19:34 CC: Epigastric and HPI patient ate spicy notches and drank alcohol. Patient states since then he has been hurting in the epigastrium. [facility] after he was refused to having a cholecystectomy due to a swollen liver . Patient denies chest pain shortness of breath or difficulty breathing. RME / HPI RME / HPI narrative: 06/11/25 19:34 50M with history of HTN, alcoholic cirrhosis and drug use presents to ED with RUQ/epigastric pain. Patient recently discharged from [facility]. Exam: Some ab swelling. RUQ/epigastric tenderness Impression: alcohol/drug use vs pancreatitis vs biliary disease vs GERD vs gastritis Related Data Home Medications ?Medication ?Instructions ?Recorded ?Confirmed albuterol sulfate 90 mcg/actuation 1 inh inhalation BID PRN 12/26/24 04/16/25 aerosol inhaler bronchospasm baclofen 10 mg tablet 10 mg PO Q8H PRN muscle spasm 12/26/24 04/16/25 benzonatate 200 mg capsule 200 mg PO TID PRN cough 04/16/25 04/16/25 cetirizine 10 mg tablet 10 mg PO DAILY PRN congestion 04/16/25 04/16/25 ipratropium bromide 42 mcg (0.06 2 spray intranasal Q6HR PRN 04/16/25 04/16/25 %) nasal spray allergy symptoms metoclopramide HCl 10 mg tablet 10 mg PO Q6H PRN nausea and 04/16/25 04/16/25 vomiting Previous Rx's ?Medication ?Instructions ?Recorded multivitamin 1 tab PO QDAY #30 tabs 11/17/24 thiamine HCl (vitamin B1) 100 mg 100 mg PO QDAY #30 caps 11/17/24 capsule amlodipine 5 mg tablet 5 mg PO QDAY hypertension #30 tabs 12/17/24 tamsulosin 0.4 mg capsule 0.4 mg PO QDAY #30 caps 12/29/24 pantoprazole 40 mg tablet,delayed 40 mg PO QDAY #30 tabs 02/01/25 release (Protonix) hydrocodone 5 mg-acetaminophen 325 1 tab PO Q8H PRN pain #20 tabs 04/20/25 mg tablet carvedilol 6.25 mg tablet (Coreg) 6.25 mg PO BID HTN #60 tabs 05/17/25 chlordiazepoxide HCl 25 mg capsule 25 mg PO TID PRN alcohol 05/17/25 withdrawal #30 caps hydrochlorothiazide 25 mg tablet 25 mg PO QAM #30 tabs 05/17/25 lisinopril 40 mg tablet 40 mg PO QDAY #30 tabs 05/17/25 clonidine HCl 0.2 mg tablet 0.2 mg PO Q12H PRN hypertensive 05/23/25 emergency #10 tabs gabapentin 300 mg capsule 300 mg PO QID #20 caps 05/23/25 pantoprazole 20 mg tablet,delayed 20 mg PO QDAY #30 tabs 06/11/25 release (Protonix) Allergies Allergy/AdvReac Type Severity Reaction Status Date / Time No Known Allergies Allergy Verified 06/11/25 19:46 Review of Systems Review of Systems Narrative Review of Systems: GEN: No fever, no chills, no weight loss EYES: No discharge, no visual changes, no pain HEENT: No ear pain, no congestion, no sore throat PULM: No shortness of breath, no cough, no congestion CV: No chest pain, no dyspnea on exertion, no palpitations GI: No nausea, no vomiting, no diarrhea, + pain, no constipation : No frequency, no urgency, no dysuria MUSC/SKEL: No joint pain, no back pain SKIN: No rash PSYCH: No hallucinations, no depression HEME/LYMPH: No easy bleeding or bruising tendencies NEURO: No weakness, no headache ED Exam Narrative Physical exam: [General: Obese not in cot no acute distress Head normocephalic HEENT: Within acceptable limits Neck is supple nontender Chest equal chest rise nontender to palpation Respiratory: Clear to auscultation no wheezes crackles or rubs CV: Rate rhythm is regular no murmurs rubs or clicks Abdomen is distended secondary to body mild epigastric pain with palpation mild left upper and right upper quadrant tenderness with palpation. Back: No CVA tenderness no spinous process tenderness from cervical spine thoracic and lumbar spine Skin: Intact no petechiae rash induration ulceration or crepitus Extremities: Moving all extremity against resistance cap refill less than 2 seconds neurosensory intact Neuro: Awake alert oriented x3 Glascow coma 15 no focal deficits] Course Course Course Narrative: Ultrasound recommends MRCP however the patient is not toxic appearing and is intoxicated. Have a low index suspicion of any acute finding. If the patient actually has cholecystitis there is no fever the pain is not out of proportion. The patient has no fever. Review the lab laboratory results show that there is no evidence of choledocholithiasis or cholecystitis at this time patient can be discharged home to follow-up outpatient with surgery. Quality Measures none Orders Category Date Time Status US gall bladder Stat Exams 06/11/25 20:16 Completed Alcohol, Blood Medical Stat Lab 06/11/25 20:28 Completed CBC Stat Lab 06/11/25 20:28 Completed CMP [Comprehensive Metabolic Panel] Stat Lab 06/11/25 20:28 Completed Lipase Stat Lab 06/11/25 20:28 Completed Famotidine [Pepcid] Med 06/11/25 20:16 Discontinued 20 mg PO X1 ONE Ondansetron Odt [Zofran Odt] Med 06/11/25 20:16 Discontinued 4 mg PO X1 ONE mg Hyd/Al Hyd/Lul Susp [Maalox Susp] Med 06/11/25 20:16 Discontinued 30 ml PO X1 ONE Vital Signs Vital signs: Vital Signs Temperature 98.1 F 06/11/25 19:37 Pulse Rate 86 06/11/25 19:37 Respiratory Rate 18 06/11/25 19:37 Blood Pressure 172/106 H 06/11/25 19:37 Pulse Oximetry (%) 99 06/11/25 19:37 Oxygen Delivery Method Room Air 06/11/25 19:37 Discharge Plan Plan Patient Disposition: HOME (Self Care) Patient condition on transfer: Stable Prescriptions/Referrals Prescriptions/Med Rec: New pantoprazole [Protonix] 20 mg tablet,delayed release (DR/EC) 20 mg PO QDAY Qty: 30 0RF No Action amlodipine 5 mg tablet 5 mg PO QDAY MDD 1 Qty: 30 0RF metoclopramide HCl 10 mg tablet 10 mg PO Q6H PRN (Reason: nausea and vomiting) Patient Comments: TAKE 1 TABLET BY MOUTH EVERY 6 HOURS NEEDED FOR NAUSEA AND VOMITING. MAX DAILY DOSE: 4 cetirizine 10 mg tablet 10 mg PO DAILY PRN (Reason: congestion) Patient Comments: TAKE 1 TABLET NEEDED FOR CONGESTION ORALLY ONCE A DAY benzonatate 200 mg capsule 200 mg PO TID PRN (Reason: cough) Patient Comments: TAKE 1 CAPSULE BY MOUTH THREE TIMES A DAY NEEDED FOR COUGH ipratropium bromide 42 mcg (0.06 %) spray,non-aerosol 2 spray INTRANASAL Q6HR PRN (Reason: allergy symptoms) Patient Comments: SPRAY 2 SPRAYS INTO EACH NOSTRIL 3 TIMES A DAY hydrocodone-acetaminophen 5-325 mg tablet 1 tab PO Q8H MDD 3 tab PRN (Reason: pain) Qty: 20 0RF hydrochlorothiazide 25 mg tablet 25 mg PO QAM Qty: 30 1RF carvedilol [Coreg] 6.25 mg tablet 6.25 mg PO BID MDD 2 tab Qty: 60 0RF Rx Instructions: must administer with a meal/food lisinopril 40 mg tablet 40 mg PO QDAY Qty: 30 1RF chlordiazepoxide HCl 25 mg capsule 25 mg PO TID MDD 4 tab PRN (Reason: alcohol withdrawal) Qty: 30 0RF Rx Instructions: 1 tablet QID for 3 days then 1 tablet for TID for 3 days then 1 tablet BID for 3 days then 1 tab daily for 3 days then STOP thiamine HCl (vitamin B1) 100 mg capsule 100 mg PO QDAY Qty: 30 0RF multivitamin Tablet 1 tab PO QDAY Qty: 30 0RF baclofen 10 mg tablet 10 mg PO Q8H PRN (Reason: muscle spasm) albuterol sulfate 90 mcg/actuation HFA aerosol inhaler 1 inh INHALATION BID PRN (Reason: bronchospasm) Patient Comments: INHALE 2 PUFF INHALED EVERY 6 HOURS NEEDED FOR COUGH tamsulosin 0.4 mg Capsule 0.4 mg PO QDAY Qty: 30 0RF pantoprazole [Protonix] 40 mg tablet,delayed release (DR/EC) 40 mg PO QDAY Qty: 30 0RF gabapentin 300 mg capsule 300 mg PO QID Qty: 20 0RF clonidine HCl 0.2 mg tablet 0.2 mg PO Q12H PRN (Reason: hypertensive emergency) Qty: 10 0RF Referrals: Jacinto Diaz MD [Physician, Family Practice] - In 1 week No Primary/Family,Physician [Primary Care Provider] - In 1 week Problem List Clinical Impression: Abdominal pain, Alcohol intoxication Patient/Caregiver Discharge Instructions Other Activity Instructions:: Take the medication as prescribed avoid drinking alcohol avoid eating greasy spicy fatty foods. Follow-up with outpatient surgeon get a referral from your primary care doctor. If there is worsening of symptoms return the emergency room. Print Language: Icelandic Stand Alone Forms: Mayuri Award Info., Patient Portal Info Letter MANOHAR/GAYLE Supervising Physician NOHELIA Supervising Physician: Sylvain Quiles ENP MDM Clinical Information Provided by: patient Medical Records reviewed [facility] Meds/Rx considered, not ordered None Labs/Rad/Tests considered, not ordered None Chronic Illness/Social Conditions Explain: EtOH abuse EKG EKG not done Labs Labs: interpreted by me Lab(s) Interpretation(s): CBC shows a no leukocytosis H&H of 12.2 and 38.2 reported patient has thrombocytopenia CMP sodium 146 potassium 3.3 chloride of 109 CO2 of 25 glucose of 111. There is transaminitis elevation at AST 141 ALT 103 and alk phos is 336. But no T. bili elevation. Lipase at 55. EtOH level at 281. Imaging Imaging interpretation: interpreted by [facility] Imaging Interpretation(s): Ultrasound shows cholelithiasis with questionable cholecystitis. Medication Administration(s) none Medication Administration History Discontinued Medications Al Hydrox/Mg Hydrox/Simethicone (Mg Hyd/Al Hyd/Lul (Maalox Reg) Susp 30 Ml Udc) 30 ml PO X1 ONE Stop: 06/11/25 20:17 Last Admin: 06/11/25 20:52 Dose: 30 ml Documented By: Famotidine (Famotidine 20 Mg Tablet) 20 mg PO X1 ONE Stop: 06/11/25 20:17 Last Admin: 06/11/25 20:51 Dose: 20 mg Documented By: Ondansetron HCl (Ondansetron Odt 4 Mg Tabrap) 4 mg PO X1 ONE; Protocol Stop: 06/11/25 20:17 Last Admin: 06/11/25 20:51 Dose: 4 mg Documented By:
== END 2025-06-11 22:37 | disposition home or self-care (01) ==
PROVIDERS: Physician Assistant; Emergency Provider Emergency Medicine
DX: F10.129 Alcohol abuse with intoxication, unspecified (principal); K80.20 Calculus of gallbladder without cholecystitis without obstruction; K70.30 Alcoholic cirrhosis of liver without ascites; Y90.8 Blood alcohol level of 240 mg/100 ml or more
CPT/HCPCS: 36415; 76705; 80053; 80320; 83690; 85025; 99283; Q0162; A9270; G0480